=== PATIENT | male | born 1960 | race Caucasian/White ===

== ENCOUNTER → 2017-06-08 | Outpatient (CLI) | payer OTHER ==
[~2017-06-08] MED LIST: ACET-1256 PO; ALBUAER19 INH; ASPI81TA28 PO
--- NOTE | 2017-06-08 13:04 | DIAGNOSTIC IMAGING REPORT ---
(CHEST) THORAX WITHOUT CT DOSE: 207.69 mGycm HISTORY: Abnormal chest x-ray PULMONARY NODULE TECHNIQUE: Multiaxial CT images of the chest were performed without contrast. A dose lowering technique was utilized adhering to the principles of ALARA. COMPARISON: Chest 03/29/2016 FINDINGS: The lungs are clear. The mediastinal vascular structures are within normal limits. No mediastinal or hilar lymphadenopathy. No pleural effusion or pneumothorax. Limited views of the upper abdomen demonstrate a normal liver and spleen. Mild emphysematous change. Nodular density on the patient's chest film appears to relate to a healing posterior fracture and associated callus formation. No significant basilar process is present. Minimal atelectasis of lingula. 4 mm nodular density right lower lobe felt to be low suspicion. IMPRESSION: No acute process of the chest. No significant nodularity. Chest film findings appear to relate to overlap artifact. 4 mm low suspicion nodule posterior aspect right lower lobe transaxial image 29. A six-month follow-up is suggested. The above report was generated using voice recognition software. It may contain grammatical, syntax or spelling errors. Electronically signed by: Maximilian Knox M.D. 06/08/2017 1:02 PM Dictated Date/Time: 06/08/2017 12:58 PM
== END | disposition home or self-care (01) ==
LOC: C.CTS 12:31
PROVIDERS: ATTEND Family Medicine
DX: R91.1 Solitary pulmonary nodule (principal)

== ENCOUNTER 2018-11-06 05:22 | Inpatient (IN) ==
--- OUTSIDE RECORDS SUMMARY | 2018-11-06 05:24 | External Medical Summary | Continuity of Care Document ---
:1960 Author Name Ellie Jean, Provider Address Unavailable Unavailable , Care Team Providers Name Role Phone [email or web address] [email or web address] Unavailable [email or web address]. Unavailable Unavailable Unavailable Unavailable Unavailable Assessments Assessed Problems:Chronic obstructive pulmonary disease Problems Chronic obstructive pulmonary disease (496) (J44.9) Current every day smoker (305.1) (F17.200) Allergic rhinitis (477.9) (J30.9) Cough (786.2) (R05) Avascular necrosis of hip (733.42) (M87.059) Arthritis of right hip (716.95) (M16.11) Pulmonary nodule (793.11) (R91.1) Cardiac murmur (785.2) (R01.1) Lower leg edema (782.3) (R60.0) Elevated brain natriuretic peptide (BNP) level (790.99) (R79 .89) Allergies and Adverse Reactions Azithromycin TABS (Allergy) Penicillins (Allergy) Medications Aspirin 81 MG TABS; TAKE 1 TABLET DAILY. Refills: 0 Cetirizine HCl - 10 MG Oral Tablet; TAKE 1 TABLET DAILY N EEDED. Refills: 0 Montelukast Sodium 10 MG Oral Tablet; TAKE 1 TABLET BY MOUTH ONCE DAILY. Miranda Gill Start: 16-Nov-2017 Quantity: 30 Refills: 5 Ventolin HFA 108 (90 Base) MCG/ACT Inhal ation Aerosol Solution; INHALE 1 TO 2 PUFFS BY MOUTH EVERY 4 TO 6 HOURS NEEDED. Miranda Gill Start: 20-Feb-2018 Quantity: 1 18 GM Inhaler Refills: 2 Qvar RediHaler 80 MCG/ACT Inhalation Aer osol Breath Activated; 2 puffs once or twice daily as needed JAYY Cortes Start: 16-Dec-2017 Quantity: 1 10.6 GM Inhaler Refills: 5 Procedures History of Appendectomy Status: Complete d History of Exploratory Laparotomy Status : Completed Immunizations Immunizations not documented Family History Father Family history of Diabetes Mellitus (V18.0) Status: Active Family history of Colon Cancer (V16.0) Status: Active Family history of Hairy-cell Leukemia Status: Active Family history of myocardial infarction (V17.3) (Z82.49) Sta tus: Active Family history of cerebrovascular accident (CVA) (V17.1) (Z8 2.3) Status: Active Mother Family history of Multiple Myeloma Status: Active Social History - Smoking Status Current every day smoker Interventions Medication ChangesVentolin HFA 108 (90 Base) MCG/ACT Inhalation Aerosol Solution - Start Plan of Treatment Planned Observations Planned Goals not documented Results No Known Results Results not documented Encounters Appointment; Coby Gill M.D. 16-Nov-2017 10:00 Encounter Diagnosis: Problem not documented Appointment; Coby Gill M.D. 13-Jul-2017 14:00 Encounter Diagnosis: Problem not documented Appointment; Coby Gill M.D. 30-May-2017 13:00 Encounter Diagnosis: Problem not documented
[2018-11-06] MEDS ORDERED: ALBUT/IPRATROP 3MG/0.5MG NEB 3 ML VIAL NEB ONE (05:35)
[2018-11-06] MEDS ORDERED: methylPREDNISolone 125 MG/2 ML VIAL IV STA (05:35)
[2018-11-06 06:01] LABS: Basophils # (auto) 0.01 K/uL (0-0.2); Basophils % (auto) 0.2 %; Eosinophils # (auto) 0.01 K/uL (0-0.5); Eosinophils % (auto) 0.2 %; Hemoglobin 14.7 g/dL (14.0-18.0); Immature Granulocytes # (auto) 0.01 K/uL (0.00-0.02); Immature Granulocytes % (auto) 0.2 %; Lymphocytes # (auto) 1.06 K/uL (1.2-3.4); Lymphocytes % (auto) 26.3 %; Mean Corpuscular Hgb Conc 36.8 g/dL (32-36); Mean Corpuscular Volume 91.7 fL (80-100); Mean Platelet Volume 9.9 fL (7.4-10.4); Monocytes # (auto) 0.29 K/uL (0.11-0.59); Monocytes % (auto) 7.2 %; Neutrophils # (auto) 2.65 K/uL (1.4-6.5); Neutrophils % (auto) 65.9 %; Platelet Count 182 K/uL (130-400); RDW Coefficient of Variation 13.3 % (11.5-14.5); RDW Standard Deviation 44.4 fL (36.4-46.3); Red Blood Count 4.36 M/uL (4.7-6.1); White Blood Count 4.03 K/uL (4.8-10.8)
[2018-11-06 06:09] LABS: INR 1.1 (0.9-1.1); Prothrombin Time 11.3 Seconds (9.0-12.0)
[2018-11-06 06:16] LABS: Base Excess VBG -3.6 mEq/L; HCO3 VBG 21 mmol/L; PCO2 VBG 37 mmHg (38-50); PO2 VBG 20 mmHg; pH VBG 7.37 (7.36-7.41)
[2018-11-06 06:17] LABS: Oxygen Saturation VBG < 60.0 %
[2018-11-06 06:20] LABS: Alanine Aminotransferase 31 U/L (12-78); Albumin Level 3.1 gm/dl (3.4-5.0); Aspartate Aminotransferase 28 U/L (15-37); BUN Creatinine Ratio 11.7 (10-20); Bilirubin Direct 0.3 mg/dl (0-0.2); Blood Urea Nitrogen 9 mg/dl (7-18); Calcium 8.9 mg/dl (8.5-10.1); Carbon Dioxide 23 mmol/L (21-32); Chloride 91 mmol/L (98-107); Creatinine Clr Calc Pharmacy 69.2 ml/min; Est GFR (Non-African American) 101.8; Glucose 86 mg/dl (70-99); Magnesium 2.2 mg/dl (1.8-2.4); Potassium 3.8 mmol/L (3.5-5.1); Sodium 125 mmol/L (136-145)
[2018-11-06 06:25] LABS: Alkaline Phosphatase 93 U/L (45-117); Bilirubin,Total 0.8 mg/dl (0.2-1); Total Protein 6.2 gm/dl (6.4-8.2); Troponin I < 0.015 ng/ml (0-0.045)
[2018-11-06] MEDS ORDERED: LEVOFLOXACIN/D5W 750 MG/150 ML BAG IV STA (06:31)
[2018-11-06] MEDS ORDERED: MULTI-VITAMIN INFUSION 10 ML, THIAMINE HCL 100 MG, FOLIC ACID 1 MG in SODIUM CHLORIDE 0... IV SCH (06:45)
--- NOTE | 2018-11-06 06:52 | XRay Report ---
XR chest 1V portable CLINICAL HISTORY: 58 years-old Male presenting with shortness of breath. TECHNIQUE: Portable upright AP view of the chest was obtained. COMPARISON: Chest x-ray from 03/29/[address] from 11/24/2017. FINDINGS: Atherosclerosis of the aortic arch. Cardiac silhouette normal in size. Apparent density overlying the right apex likely relates to skinfold. Lungs are hyperinflated. Prominent nipple shadows bilaterally . No focal opacity. No pleural effusion or pneumothorax. Osseous structures normal. Upper abdomen nor mal. IMPRESSION: 1. Findings suggest emphysema. No focal infiltrate to suggest pneumonia. Electronically signed by: Cameron Romero M.D. 11/06/2018 6:50 AM
--- NOTE | 2018-11-06 07:13 | Emergency Department Note ---
Entered by Bijan Lance acting as a scribe for Ck Harrison MD ED Provider Note Name: Fabian Castillo Age: 58, male Arrives Via: EMS Informant: Patient CC: SOB HPI: The patient is a 58 year old male who presents to the emergency department with complaints of constant SOB beginning this morning. The patient states that he has a history of COPD as he is a current smoker. He notes that his SOB was better after receiving a nebulizer treatment. He also complains of a mild cough and a decreased appetite for the last month. He denies any fever. ROS: See above HPI for pertinent positives & negatives. A total of 10 systems reviewed and were otherwise negative. Past Medical History: GI bleed, pneumonia Past Surgical History: None Family History: No significant family history Social History: Current everyday smoker Home Medications: Tylenol, Ventolin Inhaler, Aspirin Allergies: Erythromycin, penicillins Physical: Vitals: BP 118/79, Pulse 81, Resp 24, Temp 97.5 F L, O2 Sat 100 Exam: GENERAL: Patient is chronically unwell and cachectic appearing, in moderate distress. EYES: No scleral icterus, unremarkable pupils. ENT: Mucous membranes moist, no nasal congestion. NECK: No masses appreciated, no meningismus, trachea is midline. RESPIRATORY: No dyspnea. No rhonchi. Diffuse wheezing and crackles in all lung clark, very junky productive cough. CARDIOVASCULAR: Regular rate and rhythm. No murmurs, rubs, gallops appreciated. GASTROINTESTINAL: Abdomen soft, no peritonitis. No masses appreciated. Vague abdominal tenderness throughout with hypoactive bowel sounds. BACK: No midline tenderness, no CVA tenderness EXTREMITIES: Normal motion all extremities, no cyanosis, swelling of feet but not rest of legs. NEUROLOGIC: Alert and oriented, no acute motor or sensory deficits, no focal weakness, cranial nerves grossly intact. SKIN: No rash, no jaundice, no diaphoresis. Mottling/discoloration of hands/feet. ED Course: Prior Medical Record, Triage/Nursing Notes, Medications, Allergies reviewed by Me 0530: The patient was evaluated in room B7. A complete history and physical exam was performed. 0642: I reevaluated and updated the patient. He is agreeable to inpatient treatment. He is better on the DuoNeb and his oxygen saturation is 100%. 0652: The hospitalist for [facility] was paged. 0704: Upon reevaluation, the patient is stable. I discussed the findings and the treatment plan with the patient. He expresses agreement and understanding. I spoke with Dr De Los Santos of the [facility]. The patient will be evaluated for further management. Vital Signs: reviewed and remarkable for wnl Labs: Reviewed and remarkable for hyponatremia Interventions: Saline Lock, SoluMedrol 125mg IV, Duoneb 1 hr neb, levaquin 750mg IV, banana bag IV X ray results are stated below per my interpretation: Chest: 1 view: No infiltrate, no effusion, normal cardiac border. EKG: EKG results per my interpretation. Indication - SOB. Normal sinus, 77, no ectopy, no ischemia, QTC 452. Consults: 07: I reviewed the patient's case with Dr De Los Santos who will evaluate the patient for further management. Blood pressure: Normal. No Referral necessary Disposition: Hospitalization Differentials: Differential: Infectious, Reactive Airway Disease, Pneumonia, Pneumothorax, COPD, CHF, ACS, Pulmonary Embolism, MSK, GI, Dissection, amongst other etiologies entertained. Medical Decision Makin yr old male with acute respiratory distress who looks quite malnourished consistent with not having eaten recently. Lungs very poor and difficult getting sats though seem in low 90s, fortunately vbg looking OK. Continuous neb given with steroids. Given malnourished state feel banana bag reasonable. Levaquin for abx coverage in severe copd exacerbation. Givne findings will need to come in and hospitalist consulted. Impression: COPD exacerbation, hyponatremia Ck Harrison MD The scribe's documentation has been prepared under my direction and personally reviewed by me in its entirety. I confirm that the note above accurately reflects all work, treatment, procedures, and medical decision making performed by me. Impression & Plan COPD exacerbation, Hyponatremia Past Med/Surg History Medical History GI bleed (Resolved) Pneumonia (Resolved) Family History Other No significant family history Social History Feels Safe at Home: Yes Smoking Status: Heavy tobacco smoker Results & Data Vital Signs Vital Signs - 24 hr 11/06/18 05:29 11/06/18 05:48 11/06/18 06:02 Temperature 36.4 C L Temperature Source Oral Sepsis Recent Fever Within 48 Hours No Sepsis New/Unexplained Change in Mental Status No Sepsis Action Taken by Nursing No Action Required Pulse Rate 80 Pulse Rate [Right Finger] 84 81 Pulse Rhythm Regular Pulse Strength Normal Pulse Strength [Right Finger] Normal Respiratory Rate 24 21 24 Respiratory Effort / Characteristics Non-Labored Spontaneous Non-Labored Spontaneous Respiratory Depth Normal Blood Pressure 131/88 Blood Pressure [Right Arm] 118/79 Blood Pressure Mean 102 Blood Pressure Mean [Right Arm] 92 Blood Pressure Position Lying Blood Pressure Position [Right Arm] Sitting Pulse Oximetry 95 96 100 Oxygen Delivery Method Room Air Room Air Nebulizer Home Medications Current Medication List: was personally reviewed by me Laboratory Data Attestation: I reviewed the patient's lab results. Result diagrams: 11/06/18 05:47 11/06/18 05:47 Lab Results 11/06/18 11/06/18 11/06/18 Range/Units 05:47 05:47 05:47 WBC 4.03 L (4.8-10.8) K/uL RBC 4.36 L (4.7-6.1) M/uL Hgb 14.7 (14.0-18.0) g/dL Hct 40.0 L (42-52) % MCV 91.7 (80-100) fL MCH 33.7 (25-34) pg MCHC 36.8 H (32-36) g/dL RDW Std Deviation 44.4 (36.4-46.3) fL RDW Coeff of Jm 13.3 (11.5-14.5) % Plt Count 182 (130-400) K/uL MPV 9.9 (7.4-10.4) fL Immature Gran % (Auto) 0.2 % Neut % (Auto) 65.9 % Lymph % (Auto) 26.3 % Conway % (Auto) 7.2 % Eos % (Auto) 0.2 % Baso % (Auto) 0.2 % Immature Gran # (Auto) 0.01 (0.00-0.02) K/uL Neut # (Auto) 2.65 (1.4-6.5) K/uL Lymph # (Auto) 1.06 L (1.2-3.4) K/uL Conway # (Auto) 0.29 (0.11-0.59) K/uL Eos # (Auto) 0.01 (0-0.5) K/uL Baso # (Auto) 0.01 (0-0.2) K/uL PT 11.3 (9.0-12.0) Seconds INR 1.1 (0.9-1.1) VBG pH (7.36-7.41) VBG pCO2 (38-50) mmHg VBG pO2 mmHg VBG HCO3 mmol/L VBG O2 Saturation % VBG Base Excess mEq/L Barometric Pressure mm/Hg Sodium 125 L (136-145) mmol/L Potassium 3.8 (3.5-5.1) mmol/L Chloride 91 L (98-107) mmol/L Carbon Dioxide 23 (21-32) mmol/L Anion Gap 11.0 (3-11) BUN 9 (7-18) mg/dl Creatinine 0.75 (0.6-1.4) mg/dl Est Cr Clr Drug Dosing 69.2 ml/min Est GFR ( Amer) 118.0 Est GFR (Non-Af Amer) 101.8 BUN/Creatinine Ratio 11.7 (10-20) Glucose 86 (70-99) mg/dl Lactate (0.4-2.0) mmol/L Calcium 8.9 (8.5-10.1) mg/dl Magnesium 2.2 (1.8-2.4) mg/dl Total Bilirubin 0.8 (0.2-1) mg/dl Direct Bilirubin 0.3 H (0-0.2) mg/dl AST 28 (15-37) U/L ALT 31 (12-78) U/L Alkaline Phosphatase 93 (45-117) U/L Troponin I < 0.015 (0-0.045) ng/ml Total Protein 6.2 L (6.4-8.2) gm/dl Albumin 3.1 L (3.4-5.0) gm/dl Lipase 164 (73-393) U/L 11/06/18 11/06/18 Range/Units 05:47 06:02 WBC (4.8-10.8) K/uL RBC (4.7-6.1) M/uL Hgb (14.0-18.0) g/dL Hct (42-52) % MCV (80-100) fL MCH (25-34) pg MCHC (32-36) g/dL RDW Std Deviation (36.4-46.3) fL RDW Coeff of Jm (11.5-14.5) % Plt Count (130-400) K/uL MPV (7.4-10.4) fL Immature Gran % (Auto) % Neut % (Auto) % Lymph % (Auto) % Conway % (Auto) % Eos % (Auto) % Baso % (Auto) % Immature Gran # (Auto) (0.00-0.02) K/uL Neut # (Auto) (1.4-6.5) K/uL Lymph # (Auto) (1.2-3.4) K/uL Conway # (Auto) (0.11-0.59) K/uL Eos # (Auto) (0-0.5) K/uL Baso # (Auto) (0-0.2) K/uL PT (9.0-12.0) Seconds INR (0.9-1.1) VBG pH 7.37 (7.36-7.41) VBG pCO2 37 L (38-50) mmHg VBG pO2 20 mmHg VBG HCO3 21 mmol/L VBG O2 Saturation < 60.0 % VBG Base Excess -3.6 mEq/L Barometric Pressure 730.9 mm/Hg Sodium (136-145) mmol/L Potassium (3.5-5.1) mmol/L Chloride (98-107) mmol/L Carbon Dioxide (21-32) mmol/L Anion Gap (3-11) BUN (7-18) mg/dl Creatinine (0.6-1.4) mg/dl Est Cr Clr Drug Dosing ml/min Est GFR ( Amer) Est GFR (Non-Af Amer) BUN/Creatinine Ratio (10-20) Glucose (70-99) mg/dl Lactate 1.4 (0.4-2.0) mmol/L Calcium (8.5-10.1) mg/dl Magnesium (1.8-2.4) mg/dl Total Bilirubin (0.2-1) mg/dl Direct Bilirubin (0-0.2) mg/dl AST (15-37) U/L ALT (12-78) U/L Alkaline Phosphatase (45-117) U/L Troponin I (0-0.045) ng/ml Total Protein (6.4-8.2) gm/dl Albumin (3.4-5.0) gm/dl Lipase (73-393) U/L Administered Medications Levofloxacin/Dextrose (Levaquin/D5w) 750 mg in 150 mls @ 100 mls/hr IV NOW STA Stop: 11/06/18 08:00 Last Admin: 11/06/18 06:35 Dose: 100 mls/hr Documented by: [id number] Discontinued Medications Albuterol (Duoneb) 12 ml NEB ONE ONE Stop: 11/06/18 05:36 Last Admin: 11/06/18 05:46 Dose: 12 ml Documented by: [id number] Methylprednisolone (Solumedrol) 125 mg IV NOW STA Stop: 11/06/18 05:36 Last Admin: 11/06/18 05:59 Dose: 125 mg Documented by: [id number] Discharge Plan Visit Data Chief Complaint: Respiratory Problems Stated Complaint: BREATHING DIFFICULTY ED Provider: Ck Harrison Discharge Problem: COPD exacerbation, Hyponatremia Patient Disposition: Being Evaluated by Hospitalist Forms Stand Alone Forms: My [facility] Prescriptions Prescriptions: No Action aspirin 81 mg Tablet,Delayed Release (Dr/Ec) 81 mg PO DAILY RF: 0 Referrals Referrals: Abena Gill MD [Primary Care Provider] - The scribe's documentation has been prepared under my direction and personally reviewed by me in its entirety. I confirm that the note above accurately reflects all work, treatment, procedures, and medical decision making performed by me.
--- NOTE | 2018-11-06 07:30 | History & Physical Report ---
Date of Service November 06, 2018 Assessment & Plan (1) COPD exacerbation: Improved s/p 1-hour neb in ER along with steroids/antibiotics. Will continue IV solumedrol 40mg q12h. Will wait for CTA chest to determine antibiotic selection (he may just need doxycycline or something similar). Would benefit from controller agent. Needs to quit smoking. Incentive spirometry. Mucinex. Scheduled nebs q6h. Present on Admission?: Yes (2) Hyponatremia: Looks relatively euvolemic despite recent history of poor oral intake at home. Could be beer potomania. Could be SIADH from an occult malignancy. Will send urine osm, urine Na, and serum osm with uric acid NOW before giving fluids. Will need, at minimum, repeat BMP in about 6-8 hours and in am. Present on Admission?: Yes (3) Severe protein-calorie malnutrition: Highly concerning for occult malignancy. Add MVI, thiamine, folic acid, boost, etc. Occult malignancy work-up with CT chest/abd/pelvis. May need EGD as well. Present on Admission?: Yes (4) Weight loss: Concerning for occult malignancy. See above. Present on Admission?: Yes (5) Early satiety: Start zantac IV in the event he has gastritis or PUD causing these symptoms. CT abd/pelvis. Will likely need additional GI work-up (EGD, etc). Also with prominent aortic pulsation - CT will r/o AAA. 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 Nicoderm patch 21mg/day. Present on Admission?: Yes (7) Alcohol abuse: Alcohol withdrawal protocol. Gabapentin taper. Ativan prn. MVI/thiamine/folic acid. Place on telemetry. Present on Admission?: Yes (8) Leukopenia: Chronicity unknown. Follow; repeat CBC am. Present on Admission?: Yes (9) DVT prophylaxis: heparin 5000 BID History of Present Illness Chief Complaint: cough, dyspnea Primary Care Provider: Abena Gill MD 58yo male with COPD and long-standing tobacco dependence who presents with worsening cough and dyspnea starting Tuesday AM. Symptoms were initially very mild over the weekend. He went to bed last night feeling "pretty good" but then awoke at 4am to go to the bathroom and was severely dyspneic. At baseline he can walk about 50-60 yards before stopping to rest because of dyspnea. He normally takes ventolin HFA prn but ran out recently. No fevers. He mentions early satiety for about 1 month. Just a few bites into a meal and he is filled up. He has had associated nausea and bloating. He has used tums and prilosec for the nausea. No stomach pain but has had "discomfort." Stools have not had gross melena or BRBPR. No dysphagia or odynophagia. No h/o GERD. Has had some weight loss - he is unsure of the amount. Allergies Allergy/AdvReac Type Severity Reaction Status Date / Time erythromycin base Allergy Unknown UNKNOWN Verified 11/06/18 06:21 Penicillins Allergy Unknown UNKNOWN Verified 11/06/18 06:21 Home Medications Home Medications Medication Instructions Recorded Confirmed Type aspirin 81 mg PO DAILY 11/06/18 11/06/18 History Past Med/Surg History Medical History GI bleed (Resolved) Pneumonia (Resolved) COPD (chronic obstructive pulmonary disease) (Chronic) Abdominal mass removed at [facility] - he cannot recall details; he was in 3rd grade Avascular necrosis of hip right Surgical History Hx of appendectomy Family History Father Hairy cell leukemia Mother Multiple myeloma Social History Preferred Language: Moroccan Communication Ability: Effective Beliefs That Will Affect Care: None marital status: Single marital status details: no children Current Living Situation: Alone Current Living Situation Comment: lives in [place] by himself current occupational status: disabled Other Information That Helps Us Care for You: No other: 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 Feels Safe at Home: Yes Safety Concerns: Feels Safe At This Time Smoking Status: Heavy tobacco smoker Tobacco Type: cigarettes Age Started Using Tobacco: 15 packs per day: 1 Cigarettes Per Day: 26 Hx Alcohol Use: Yes Alcohol type: beer Alcohol Intake Frequency Comment: 4-6 beers/day Hx Substance Use: No Review of Systems Constitutional: + fatigue, + anorexia and + weight loss; no fever, no chills and no sweats Eyes: no worsening vision Ear, Nose, Mouth, Throat: + nasal congestion; no sore throat Respiratory: + cough, + dyspnea, + dyspnea on exertion and + wheezing; no hemoptysis Cardiovascular: no chest pain Gastrointestinal: + abdominal pain, + bloating, + early satiety, + nausea and + diarrhea/loose stools; no vomiting, no pain with swallowing, no constipation and no blood in stools Genitourinary: no dysuria Musculoskeletal: no back pain and no joint pain Integumentary: no rash Neurologic: no numbness Psychiatric: no depression and no anxiety Endocrine: no polydipsia and no polyuria Hematologic / Lymphatic: no easy bruising Allergy / Immunological: + seasonal rhinorrhea Physical Exam Constitutional: + ill appearing, + cachectic and + disheveled; no acute distress and no altered mental status Eyes: + conjunctival abnormality (mildly injected b/l ) and PERRL ENMT: Ears: no TM abnormality Nose: no external nose abnormality Mouth: + oropharynx abnormality (3-4mm erythematous papule right posterior pharynx; erythroplakia?) and + poor dentition Neck: trachea midline, no thyromegaly Respiratory: normal respiratory effort; no labored breathing Auscultation: + diminished lung sounds; no crackles, no rhonchi and no wheezes Cardiovascular: Rate/Rhythm: regular rhythm and + tachycardic Heart Sounds: normal S1 and normal S2; no murmur Vessels: posterior tibial pulses present and dorsalis pedis pulses present; no JVD Extremities: no edema Gastrointestinal (Abdomen): Inspection/Auscultation: abdomen not distended Percussion/Palpation: + abdomen tender (high epigastric region) and + abdominal aortic enlargement (with prominent pulsation); no guarding, abdomen not rigid and no hepatosplenomegaly Musculoskeletal: Extremities: strength 5/5 throughout and + clubbing Skin: + ecchymosis (arms) Neurologic: deep tendon reflexes 2+ bilaterally; no focal motor deficits Motor/Sensory: + tremor Cranial Nerves: PERRL Psychiatric: A+Ox3, euthymic affect Lymphatic: no cervical lymphadenopathy Results & Data Vital Signs (Past 12 Hours) Vital Signs Temp Pulse Pulse Resp BP BP Pulse Ox 11/06/18 06:02 81 24 118/79 100 11/06/18 05:48 84 21 96 11/06/18 05:29 36.4 C L 80 24 131/88 95 Laboratory Results Laboratory Results - last 24 hr 11/06/18 11/06/18 11/06/18 05:47 05:47 05:47 WBC 4.03 L RBC 4.36 L Hgb 14.7 Hct 40.0 L MCV 91.7 MCH 33.7 MCHC 36.8 H RDW Std Deviation 44.4 RDW Coeff of Jm 13.3 Plt Count 182 MPV 9.9 Immature Gran % (Auto) 0.2 Neut % (Auto) 65.9 Lymph % (Auto) 26.3 Clarke % (Auto) 7.2 Eos % (Auto) 0.2 Baso % (Auto) 0.2 Immature Gran # (Auto) 0.01 Neut # (Auto) 2.65 Lymph # (Auto) 1.06 L Clarke # (Auto) 0.29 Eos # (Auto) 0.01 Baso # (Auto) 0.01 PT 11.3 INR 1.1 VBG pH VBG pCO2 VBG pO2 VBG HCO3 VBG O2 Saturation VBG Base Excess Barometric Pressure Sodium 125 L Potassium 3.8 Chloride 91 L Carbon Dioxide 23 Anion Gap 11.0 BUN 9 Creatinine 0.75 Est Cr Clr Drug Dosing 69.2 Est GFR ( Amer) 118.0 Est GFR (Non-Af Amer) 101.8 BUN/Creatinine Ratio 11.7 Glucose 86 Lactate Calcium 8.9 Magnesium 2.2 Total Bilirubin 0.8 Direct Bilirubin 0.3 H AST 28 ALT 31 Alkaline Phosphatase 93 Troponin I < 0.015 Total Protein 6.2 L Albumin 3.1 L Lipase 164 Urine Color Urine Appearance Urine pH Ur Specific Healy Urine Protein Urine Glucose (UA) Urine Ketones Urine Blood Urine Nitrite Urine Bilirubin Urine Urobilinogen Ur Leukocyte Esterase 11/06/18 11/06/18 11/06/18 05:47 06:02 07:21 WBC RBC Hgb Hct MCV MCH MCHC RDW Std Deviation RDW Coeff of Jm Plt Count MPV Immature Gran % (Auto) Neut % (Auto) Lymph % (Auto) Clarke % (Auto) Eos % (Auto) Baso % (Auto) Immature Gran # (Auto) Neut # (Auto) Lymph # (Auto) Clarke # (Auto) Eos # (Auto) Baso # (Auto) PT INR VBG pH 7.37 VBG pCO2 37 L VBG pO2 20 VBG HCO3 21 VBG O2 Saturation < 60.0 VBG Base Excess -3.6 Barometric Pressure 730.9 Sodium Potassium Chloride Carbon Dioxide Anion Gap BUN Creatinine Est Cr Clr Drug Dosing Est GFR ( Amer) Est GFR (Non-Af Amer) BUN/Creatinine Ratio Glucose Lactate 1.4 Calcium Magnesium Total Bilirubin Direct Bilirubin AST ALT Alkaline Phosphatase Troponin I Total Protein Albumin Lipase Urine Color Yellow Urine Appearance Clear Urine pH 5.5 Ur Specific Healy 1.011 Urine Protein Negative Urine Glucose (UA) Negative Urine Ketones Trace H Urine Blood Negative Urine Nitrite Negative Urine Bilirubin Negative Urine Urobilinogen Negative Ur Leukocyte Esterase Negative Diagnostic Findings CXR - emphysematous changes; no focal infiltrates EKG - my reading - sinus tach, no ST changes Code Status & VTE Plan Code Status level 1 full code VTE Prophylaxis Plan VTE Prophylaxis will be ordered: Yes PG Care Time/CCT Total # of Minutes Spent Total Time Spent with Patient: Total time spent is greater than 50% in coordination of care (as documented) at patient's floor/unit and/or counseling patient: (1) Leukopenia Leukopenia type: other Qualified Code(s): D72.818 - Other decreased white blood cell count
[2018-11-06 07:34] LABS: Appearance Urine Clear (Clear); Bilirubin Urine Negative (Negative); Blood Urine Negative (Negative); Color Urine Yellow; Glucose Urine UA Negative (Negative); Ketones Urine Trace (Negative); Leukocyte Esterase Urine Negative (Negative); Nitrite Urine Negative (Negative); Protein Urine Negative (Negative); Specific Gravity Urine 1.011 (1.000-1.030); Urobilinogen Urine Negative (Negative); pH Urine 5.5 (4.5-7.5)
[2018-11-06] MEDS ORDERED: LORazepam 1 MG TAB PO PRN ×2 (09:28→16:31)
[2018-11-06] MEDS ORDERED: GABAPENTIN 600MG ALCOHOL WITHDRAWAL LOAD PO STA (09:28)
[2018-11-06] MEDS ORDERED: ONDANSETRON INJ 2 MG/ML 2 ML VIAL IV PRN (09:28)
[2018-11-06] MEDS ORDERED: ACETAMINOPHEN 325 MG TAB PO PRN (09:28)
[2018-11-06] MEDS ORDERED: GABAPENTIN 600 MG TAB PO ONE (10:00)
[2018-11-06] MEDS: FOLIC ACID 1 MG in SYRINGE 9.8 ML IV SCH (10:01)
[2018-11-06] MEDS ORDERED: OPTIRAY 320 125ml IV PRN (10:28)
[2018-11-06 10:32] LABS: BUN Creatinine Ratio 8.6 (10-20); Calcium 8.1 mg/dl (8.5-10.1); Est GFR (Non-African American) 93.2
[2018-11-06] MEDS: THIAMINE HCL 200 MG in SODIUM CHLORIDE 0.9% 50 ML IV SCH ×2 (10:52→21:18)
[2018-11-06] MEDS: NICOTINE 21 MG/24 HR TDSY TD SCH (10:53)
[2018-11-06] MEDS: CEROVITE ADV FORMULA TAB PO SCH (10:53)
[2018-11-06] MEDS: HEPARIN SOD 5,000 UNIT/0.5 ML VIAL SQ SCH ×2 (10:54→21:13)
[2018-11-06] MEDS: guaiFENesin 600 MG TABCR PO SCH ×2 (10:54→21:13)
[2018-11-06] MEDS: methylPREDNISolone 40 MG in SYRINGE 0 ML IV SCH (11:00)
--- NOTE | 2018-11-06 11:02 | CT Scan Report ---
CT ANGIOGRAM OF THE CHEST CLINICAL HISTORY: Weight loss, shortness of breath. Possible pulmonary embolism. COMPARISON STUDY: Noncontrast chest CT performed November 2017 TECHNIQUE: Following the IV administration of 119 mL of Optiray-320, CT angiogram of the thorax was p erformed from the thoracic inlet to the lung bases utilizing the pulmonary embolus protocol. Images a re reviewed in the axial, sagittal, and coronal planes. IV contrast was administered without complica tion. MIP imaging was performed. A dose lowering technique was utilized adhering to the principles o f ALARA. CT DOSE: 499.88 mGycm FINDINGS: There is a partially visualized 13 mm left renal cyst. No pathologically enlarged axillary mediastinal or hilar lymph nodes were visualized. There was no evidence of thoracic aortic dilatation. There were no pulmonary artery filling defects to indicate acute pulmonary embolism. No pleural effusions are visualized. There is no focal pulmonary consolidation. There is respiratory motion artifact. There is underlying pulmonary emphysema. IMPRESSION: 1. No evidence of acute pulmonary embolism 2. No evidence of acute parenchymal consolidation 3. No evidence of pathologic adenopathy 4. Emphysema Electronically signed by: Sung Moses M.D. 11/06/2018 11:01 AM
[2018-11-06] MEDS: ALBUT/IPRATROP 3MG/0.5MG NEB 3 ML VIAL NEB SCH ×3 (11:10→18:59)
--- NOTE | 2018-11-06 12:25 | CT Scan Report ---
ABDOMEN AND PELVIS CT WITH IV AND ORAL CONTRAST HISTORY: Acute generalized abdominal pain with weight loss, early satiety, abd pain, weight loss TECHNIQUE: Multiaxial CT images of the abdomen and pelvis were performed following the use of intrave nous and oral contrast. A dose lowering technique was utilized adhering to the principles of ALARA. COMPARISON STUDY: CTA chest of same day, chest CT 06/08/2017. FINDINGS: Trace pleural effusions. Minimal subsegmental bibasilar opacities suggest atelectasis. Emphysema with mild bilateral bronchial wall thickening. No pneumatosis or pneumoperitoneum. Coronary arterial calc ifications are noted. The imaged inferior cardiac chambers are unremarkable. The liver, spleen, gallbladder, pancreas and adrenal glands appear unremarkable. 1.4 cm cyst of the s uperior pole left kidney. No renal or ureteral calculi or obstructive uropathy. Moderate urinary blad fadi distention. Calcifications about the mid to fundal uterus are noted. No adnexal mass lesions. Ext ensive mixed plaque formation of the abdominal aorta and iliac arteries without aneurysm or dissectio n. IVC appears unremarkable. No adenopathy. No bowel obstruction or bowel wall thickening. No ascites or mesenteric inflammation. Soft tissues ar e unremarkable. Severe joint space loss of the right femoroacetabular joint with fragmentation of the right femoral head. Extensive subcortical cystic changes and erosions are present in addition to a m oderate sized joint effusion. Multiple calcific intra-articular loose bodies measure up to 1.5 cm. Mi ld avascular necrosis about the left femoral head. No acute fracture identified. IMPRESSION: 1. No acute intra-abdominal or intrapelvic abnormality identified. 2. Moderate urinary bladder distention. 3. Emphysema. 4. Severe joint space narrowing of the right femoroacetabular joint with prominent subcortical cystic change, erosion and bony fragmentation of the femoral head. Moderate associated joint effusion with multiple calcified intra-articular loose bodies. Differential considerations would include PVNS versu s nonspecific inflammatory arthropathy. Infectious arthropathy is considered less likely. Correlate c km. 5. Avascular necrosis of the left femoral head. 6. Additional findings as above. Dictated: 11/06/2018 11:29 AM Transcribed: 11/06/2018 12:25 PM Octavia [id number] [email or web address] Electronically signed by: Joshua Alvarez M.D. 11/06/2018 12:38 PM
[2018-11-06] MEDS ORDERED: SODIUM CHLORIDE 0.9% 500 ML IV SCH (13:30)
[2018-11-06] MEDS: GABAPENTIN 100 MG CAP PO SCH ×2 (16:08→21:11)
[2018-11-06 16:28] LABS: BUN Creatinine Ratio 6.8 (10-20); Calcium 8.7 mg/dl (8.5-10.1); Creatinine Clr Calc Pharmacy 40.9 ml/min; Est GFR (African American) 70.9; Est GFR (Non-African American) 61.1; Potassium 3.6 mmol/L (3.5-5.1)
[2018-11-06] MEDS ORDERED: LORazepam 2 MG/4 ML VIAL IV PRN (16:31)
[2018-11-06] MEDS ORDERED: LORazepam 1 MG/2 ML VIAL IV PRN (16:31)
[2018-11-06] MEDS ORDERED: LORazepam 3 MG/6 ML VIAL IV PRN (16:31)
[2018-11-06] MEDS ORDERED: ATIVAN IV ALCOHOL WITHDRAWL IV SCH (16:45)
[2018-11-07] MEDS: methylPREDNISolone 40 MG in SYRINGE 0 ML IV SCH ×2 (00:43→12:53)
[2018-11-07 07:00] LABS: Hematocrit (blood only) 34.9 % (42-52); Hemoglobin 12.4 g/dL (14.0-18.0); Immature Granulocytes # (auto) 0.02 K/uL (0.00-0.02); Immature Granulocytes % (auto) 0.3 %; Lymphocytes # (auto) 0.34 K/uL (1.2-3.4); Lymphocytes % (auto) 5.3 %; Mean Corpuscular Hgb Conc 35.5 g/dL (32-36); Mean Corpuscular Volume 93.3 fL (80-100); Mean Platelet Volume 9.7 fL (7.4-10.4); Monocytes # (auto) 0.22 K/uL (0.11-0.59); Monocytes % (auto) 3.5 %; Neutrophils # (auto) 5.79 K/uL (1.4-6.5); Neutrophils % (auto) 90.9 %; Platelet Count 176 K/uL (130-400); RDW Coefficient of Variation 13.7 % (11.5-14.5); Red Blood Count 3.74 M/uL (4.7-6.1); White Blood Count 6.37 K/uL (4.8-10.8)
[2018-11-07] MEDS: ALBUT/IPRATROP 3MG/0.5MG NEB 3 ML VIAL NEB SCH ×3 (07:13→15:11)
[2018-11-07 07:41] LABS: BUN Creatinine Ratio 10.9 (10-20); Calcium 8.6 mg/dl (8.5-10.1); Creatinine Clr Calc Pharmacy 63.1 ml/min; Est GFR (African American) 112.7; Est GFR (Non-African American) 97.2
[2018-11-07] MEDS ORDERED: GABAPENTIN 600 MG TAB PO SCH (08:00)
[2018-11-07] MEDS: guaiFENesin 600 MG TABCR PO SCH ×2 (09:01→20:39)
[2018-11-07] MEDS: FOLIC ACID 1 MG in SYRINGE 9.8 ML IV SCH (09:01)
[2018-11-07] MEDS: NICOTINE 21 MG/24 HR TDSY TD SCH (09:01)
[2018-11-07] MEDS: CEROVITE ADV FORMULA TAB PO SCH (09:01)
[2018-11-07] MEDS: HEPARIN SOD 5,000 UNIT/0.5 ML VIAL SQ SCH ×2 (09:01→20:37)
[2018-11-07] MEDS ORDERED: COUGH DROP (SUGAR FREE) LOZ 24 LOZ/1 BOX BUCCAL ONE (09:03)
[2018-11-07] MEDS: THIAMINE HCL 200 MG in SODIUM CHLORIDE 0.9% 50 ML IV SCH ×2 (09:06→20:37)
[2018-11-07] MEDS: ALBUTEROL HFA 8 GM INHALER INH PRN (17:13)
[2018-11-07] MEDS: IPRATROPIUM BROMIDE/ALBUTEROL respimat INH INH SCH (20:37)
--- NOTE | 2018-11-07 20:45 | Hospitalist Progress Note ---
Date of Service November 07, 2018 Assessment & Plan (1) COPD exacerbation: Improved. Wean steroids. change duonebs to combivent q6h and albuterol MDI q2-q4h prn. 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 needs to quit smoking. doxy 100mg BID x 6 days in total (received IV abx in ER yesterday for day #1 of Rx). (2) Hyponatremia: Likely beer potomania. Na has corrected w/o intervention. Low urine osm c/w beer potomania/polydipsis. BMP qam. (3) Severe protein-calorie malnutrition: Highly concerning for occult malignancy. Adedd MVI, thiamine, folic acid, boost, etc. Occult malignancy work-up with CT chest/abd/pelvis negative, however. Will need outpatient EGD due to recent early satiety and weight loss along with colonoscopy. (4) Weight loss: Concerning for occult malignancy. See above. (5) Early satiety: Started zantac IV in the event he has gastritis or PUD causing these symptoms. Symptoms improved; eating very well. Will likely need additional GI work-up (EGD, etc). 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 Nicoderm patch 21mg/day. (7) Alcohol abuse: Alcohol withdrawal protocol in place. Probably has mild withdrawal currently. Gabapentin taper. Ativan prn. MVI/thiamine/folic acid. Continue tele status. (8) Leukopenia: noted. improved. (9) Physical deconditioning: needs rehab but patient not agreeable (10) DVT prophylaxis: heparin 5000 BID girlfriend updated at bedside today Subjective patient has been refusing to walk and get up for staff. thus, PT eval ordered. did very poorly - walked 12 feet but was very unsteady and weak. rehab recommended but he refused. cough,dyspnea much improved. eating VERY well w/o early satiety. states tremors are "like they are at home." tele- sinus tach especially with walking. asks if he could get some viagra for home after discharge. Review of Systems Constitutional: no fever, no chills, no fatigue and no anorexia Respiratory: + cough; no chest congestion, no hemoptysis, no sputum production and no wheezing Cardiovascular: no chest pain Gastrointestinal: no abdominal pain, no bloating, no early satiety, no nausea and no vomiting Physical Exam Constitutional: + ill appearing, + cachectic and + disheveled; no acute distress and no altered mental status ENMT: Mouth: + poor dentition Neck: trachea midline, no thyromegaly Respiratory: normal respiratory effort; no labored breathing Auscultation: + diminished lung sounds; no crackles, no rhonchi and no wheezes Cardiovascular: Rate/Rhythm: regular rate and regular rhythm Heart Sounds: normal S1 and normal S2; no murmur Vessels: posterior tibial pulses present and dorsalis pedis pulses present; no JVD Extremities: no edema Gastrointestinal (Abdomen): normal bowel sounds, soft, nontender, no hepatosplenomegaly Musculoskeletal: Extremities: + clubbing Skin: + ecchymosis (arms) Neurologic: Motor/Sensory: + tremor Psychiatric: A+Ox3, euthymic affect Results & Data Vital Signs (Past 12 Hours) Vital Signs Temp Pulse Resp BP Pulse Ox 11/07/18 19:10 36.6 C 90 16 96/68 L 96 11/07/18 15:29 36.7 C 98 H 20 108/71 94 11/07/18 15:14 102 H 18 96 11/07/18 14:39 98 11/07/18 11:10 76 16 98 11/07/18 11:08 36.6 C 77 24 96/56 L 98 PG Care Time/CCT Total # of Minutes Spent Total Time Spent with Patient: Total time spent is greater than 50% in coordination of care (as documented) at patient's floor/unit and/or counseling patient: (1) Leukopenia Leukopenia type: other Qualified Code(s): D72.818 - Other decreased white blood cell count
[2018-11-08] MEDS: ALBUTEROL HFA 8 GM INHALER INH PRN ×4 (00:37→19:33)
[2018-11-08 07:13] LABS: BUN Creatinine Ratio 12.8 (10-20); Calcium 8.3 mg/dl (8.5-10.1); Creatinine Clr Calc Pharmacy 90.7 ml/min; Est GFR (African American) 129.4; Est GFR (Non-African American) 111.6; Potassium 4.5 mmol/L (3.5-5.1)
[2018-11-08] MEDS ORDERED: GABAPENTIN 400 MG CAP PO SCH (08:00)
[2018-11-08] MEDS: HEPARIN SOD 5,000 UNIT/0.5 ML VIAL SQ SCH ×2 (08:33→20:23)
[2018-11-08] MEDS: IPRATROPIUM BROMIDE/ALBUTEROL respimat INH INH SCH ×4 (08:34→20:22)
[2018-11-08] MEDS: FOLIC ACID 1 MG in SYRINGE 9.8 ML IV SCH (08:35)
[2018-11-08] MEDS: guaiFENesin 600 MG TABCR PO SCH ×2 (08:35→20:24)
[2018-11-08] MEDS: CEROVITE ADV FORMULA TAB PO SCH (08:36)
[2018-11-08] MEDS: predniSONE 20 MG TAB PO SCH (08:36)
[2018-11-08] MEDS: THIAMINE HCL 200 MG in SODIUM CHLORIDE 0.9% 50 ML IV SCH ×2 (08:47→20:26)
[2018-11-08] MEDS: NICOTINE 21 MG/24 HR TDSY TD SCH (10:00)
[2018-11-08] MEDS: DOXYCYCLINE HYCLATE 100 MG CAP PO SCH (20:36)
--- NOTE | 2018-11-08 21:39 | Hospitalist Progress Note ---
Date of Service November 08, 2018 Assessment & Plan (1) Alcohol withdrawal: Patient is in withdrawal. Although he says the tremors are chronic and unchanged from baseline they are clearly worse in comparison to admission. Continue gabapentin protocol. Continue ativan prn. He declined scheduled beer to prevent withdrawal. Cont MVI/folic acid/thiamine. Cont telemetry status. Fortunately no DTs or significant agitation. (2) COPD exacerbation: Resolving. Continue prednisone daily. Add advair 250/50 1 puff BID. Cont combivent q6h. Cont mucinex. Cont incentive stephanie. Needs to quit smoking. Doxy 100mg BID. (3) Hyponatremia: Beer potomania. Improved/stable. BMP am for stability. (4) Severe protein-calorie malnutrition: Highly concerning for occult malignancy. CT chest/abd/pelvis w/o obvious tumor/malignancy however. Will need GI w/u post-discharge (5) Weight loss: Concerning for occult malignancy. See above. (6) Early satiety: resolved with IV zantac and steroids. cause? EGD will be needed post-d/c. 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 Nicoderm patch 21mg/day. (8) Alcohol abuse: with withdrawal as above. Alcohol withdrawal protocol in place. Gabapentin taper. Ativan prn. MVI/thiamine/folic acid. NO INTEREST in quitting. (9) Leukopenia: resolved (10) Physical deconditioning: highly encouraged him to consider rehab- refused. had Ms Wilson from case management talk to him about rehab- also refused. he is refusing home PT/OT as well spoke with significant other - she plans to talk with him about going to rehab. (11) DVT prophylaxis: heparin 5000 BID cont etoh withdrawal Rx Subjective patient states he "had a code brown" (bowel movement in the bed) he continues to have significant tremors and weakness he continues to tell me the tremors are not any worse than his baseline tremors cough is minimal tele still w/ episodes of sinus tach with activity staff report he is NOT motivated to walk we had a lengthy discussion about rehab -- he gave multiple reasons why he wouldn't go "it is what it is" he told me he also told me he has NO plans to stop drinking he has near-daily routine of going to a local bar in [place] to drink and watch sports Review of Systems Constitutional: no fever, no chills, no fatigue and no anorexia Respiratory: + cough and + dyspnea on exertion; no chest congestion, no hemoptysis and no sputum production Cardiovascular: no chest pain Gastrointestinal: no abdominal pain, no bloating, no early satiety, no nausea, no vomiting and no diarrhea/loose stools Physical Exam Constitutional: + cachectic and + disheveled; no acute distress and no altered mental status ENMT: external ear and nose normal, oropharynx normal Mouth: + poor dentition Neck: trachea midline, no thyromegaly Respiratory: normal respiratory effort; no labored breathing Auscultation: no crackles, no rhonchi and no wheezes Cardiovascular: Rate/Rhythm: regular rhythm and + tachycardic Heart Sounds: normal S1 and normal S2; no murmur Vessels: posterior tibial pulses present and dorsalis pedis pulses present; no JVD Extremities: no edema Gastrointestinal (Abdomen): normal bowel sounds, soft, nontender, no hepatosplenomegaly Musculoskeletal: Extremities: + clubbing Skin: + ecchymosis (arms) Neurologic: Motor/Sensory: + tremor (worse than yesterday) Psychiatric: A+Ox3, euthymic affect Results & Data Vital Signs (Past 12 Hours) Vital Signs Temp Pulse Resp BP Pulse Ox 11/08/18 19:12 36.7 C 86 20 103/66 96 11/08/18 15:09 36.6 C 88 22 119/74 98 11/08/18 14:47 99 11/08/18 11:54 36.8 C 99 H 22 104/76 99 Laboratory Results Laboratory Results - last 24 hr 11/08/18 11/08/18 06:22 07:13 Sodium 133 L Potassium 4.5 Chloride 103 Carbon Dioxide 26 Anion Gap 4.0 BUN 8 Creatinine 0.60 Est Cr Clr Drug Dosing 90.7 Est GFR ( Amer) 129.4 Est GFR (Non-Af Amer) 111.6 BUN/Creatinine Ratio 12.8 Glucose 93 POC Glucose 101 H Calcium 8.3 L PG Care Time/CCT Total # of Minutes Spent Total Time Spent with Patient: Total time spent is greater than 50% in coordin ation of care (as documented) at patient's floor/unit and/or counseling patient: (1) Leukopenia Leukopenia type: other Qualified Code(s): D72.818 - Other decreased white blood cell count (2) Alcohol withdrawal Complication of substance-induced condition: uncomplicated Qualified Code(s): F10.230 - Alcohol dependence with withdrawal, uncomplicated
[2018-11-08] MEDS: FLUTICASONE/SALMETEROL 250/50 (ADVAIR) 14 PUFF/1 INHALER INH SCH (22:06)
[2018-11-09 07:51] LABS: BUN Creatinine Ratio 15.1 (10-20); Calcium 8.4 mg/dl (8.5-10.1); Creatinine Clr Calc Pharmacy 90.3 ml/min; Est GFR (African American) 129.4; Est GFR (Non-African American) 111.6; Potassium 4.2 mmol/L (3.5-5.1)
[2018-11-09] MEDS ORDERED: GABAPENTIN 100 MG CAP PO SCH (08:00)
[2018-11-09] MEDS: predniSONE 20 MG TAB PO SCH (08:08)
[2018-11-09] MEDS: CEROVITE ADV FORMULA TAB PO SCH (08:08)
[2018-11-09] MEDS: DOXYCYCLINE HYCLATE 100 MG CAP PO SCH (08:08)
[2018-11-09] MEDS: FLUTICASONE/SALMETEROL 250/50 (ADVAIR) 14 PUFF/1 INHALER INH SCH (08:08)
[2018-11-09] MEDS: guaiFENesin 600 MG TABCR PO SCH (08:08)
[2018-11-09] MEDS: FOLIC ACID 1 MG in SYRINGE 9.8 ML IV SCH (08:09)
[2018-11-09] MEDS: IPRATROPIUM BROMIDE/ALBUTEROL respimat INH INH SCH ×3 (08:09→16:19)
[2018-11-09] MEDS: NICOTINE 21 MG/24 HR TDSY TD SCH (08:09)
[2018-11-09] MEDS: THIAMINE HCL 200 MG in SODIUM CHLORIDE 0.9% 50 ML IV SCH (08:12)
[2018-11-09] MEDS: HEPARIN SOD 5,000 UNIT/0.5 ML VIAL SQ SCH (08:49)
[2018-11-09] MEDS ORDERED: CALCIUM CARBONATE 500 MG CHEWABLE TAB PO STA (17:40)
--- NOTE | 2018-11-09 19:58 | Discharge Summary ---
Date of Service date of admission - November 06, 2018 date of discharge - November 09, 2018 Admission HPI Per Admitting Provider 58yo male with COPD and long-standing tobacco dependence who presents with worsening cough and dyspnea starting Satur AM. Symptoms were initially very mild over the weekend. He went to bed last night feeling "pretty good" but then awoke at 4am to go to the bathroom and was severely dyspneic. At baseline he can walk about 50-60 yards before stopping to rest because of dyspnea. He normally takes ventolin HFA prn but ran out recently. No fevers. He mentions early satiety for about 1 month. Just a few bites into a meal and he is filled up. He has had associated nausea and bloating. He has used tums and prilosec for the nausea. No stomach pain but has had "discomfort." Stools have not had gross melena or BRBPR. No dysphagia or odynophagia. No h/o GERD. Has had some weight loss - he is unsure of the amount. Principal Diagnosis COPD with exacerbation Discharge Exam Constitutional + cachectic and + disheveled; no acute distress and no altered mental status ENMT external ear and nose normal, oropharynx normal Mouth: + poor dentition Neck trachea midline, no thyromegaly Respiratory normal respiratory effort; no labored breathing Auscultation: + wheezes (minimal b/l); no crackles and no rhonchi Cardiovascular Rate/Rhythm: regular rate and regular rhythm Heart Sounds: normal S1 and normal S2; no murmur Vessels: posterior tibial pulses present and dorsalis pedis pulses present; no JVD Extremities: no edema Gastrointestinal (Abdomen) normal bowel sounds, soft, nontender, no hepatosplenomegaly Inspection/Auscultation: abdomen not distended Musculoskeletal Extremities: + clubbing Skin + ecchymosis (arms) Psychiatric A+Ox3, euthymic affect Lymphatic no cervical lymphadenopathy Discharge Data Allergies Allergy/AdvReac Type Severity Reaction Status Date / Time erythromycin base Allergy Unknown UNKNOWN Verified 11/06/18 06:21 Nitrate Analogues Allergy Unknown Difficulty Verified 11/06/18 16:54 Breathing Penicillins Allergy Unknown UNKNOWN Verified 11/06/18 06:[address] abd/pelvis - IMPRESSION: 1. No acute intra-abdominal or intrapelvic abnormality identified. 2. Moderate urinary bladder distention. 3. Emphysema. 4. Severe joint space narrowing of the right femoroacetabular joint with prominent subcortical cystic change, erosion and bony fragmentation of the femoral head. Moderate associated joint effusion with multiple calcified intra- articular loose bodies. Differential considerations would include PVNS versus nonspecific inflammatory arthropathy. Infectious arthropathy is considered less likely. Correlate clinically. 5. Avascular necrosis of the left femoral head. 2. CTA chest - IMPRESSION: 1. No evidence of acute pulmonary embolism 2. No evidence of acute parenchymal consolidation 3. No evidence of pathologic adenopathy 4. Emphysema Hospital Course (1) COPD exacerbation: Treated in the customary fashion with IV steroids and narrow-spectrum antibiotics along with nebs/supportive care. Quickly improved with such. He will complete a prednisone taper and short course of oral doxycycline post- discharge. The patient has, at minimum, moderate COPD by symptom history and thus he was started on maintenance treatment with advair. He was also given combivent for home use. Highly counseled to quit smoking but he did not seem motivated to do so. He never had an O2 requirement while hospitalized and imaging failed to reveal any pneumonia. (2) Hyponatremia: Likely beer potomania. Sodium level improved with no treatment other than alcohol restriction. Na improved from 125 to 136 while hospitalized. (3) Alcohol withdrawal: Patient likely experienced mild-moderate etoh withdrawal while hospitalized. He reported that his tremors are chronic but these clearly worsened during his course. He was placed on gabapentin protocol and ativan prn. He received MVI/folic acid/thiamine supplementation. Fortunately no DTs or significant agitation were seen. He was counseled to abstain from alcohol or cut back to moderate levels. However, much like tobacco, he did not seem motivated to follow these recommendations. (4) Severe protein-calorie malnutrition: Highly concerning for occult malignancy. CT chest/abd/pelvis w/o obvious tumor/malignancy however. Will need GI w/u post-discharge (EGD, etc). Referral will be made to GI for that purpose. (5) Weight loss: Concerning for occult malignancy. See above. (6) Early satiety: resolved with IV zantac. cause? EGD will be needed post-d/c. Placed on PPI at time of discharge. (7) Tobacco dependence: Counseled to quit. Nicoderm patch 21mg/day given while here. (8) Alcohol abuse: with withdrawal as above. NO INTEREST in quitting. (9) Leukopenia: resolved. he may have baseline mild leukopenia as his normal or perhaps this was due to a viral process. repeat CBC as outpatient for stability recommended. (10) Physical deconditioning: highly encouraged him to consider inpatient rehab - refused adamantly. he also refused home PT/OT and other home health services. he has severe b/l hip pain which limits his mobility. he does receive some assistance from his significant other. Total Time Total Time Spent Total Time Spent (In Minutes): 40 Total Time Includes: Examination of the Patient, Discharge Planning and Medication Reconciliation Discharge Plan Discharge Items Patient Disposition: Home - Self-Care Reason For Visit: COPD EXACERBATION Discharge Diagnosis: 1. COPD exacerbation - improved. 2. abdominal symptoms (feeling full with eating, etc) - improved, but GI referral needed. 3. low sodium level - resolved. 4. tobacco/alcohol use. Discharge Goals: Diagnostic testing Activity: Resume your previous activity Activity Comment: as tolerated Bathing: No limitations Sexual Activity: Wait until after follow-up appointment Exercise/Sports: Wait until after follow-up appointment Driving/Machine Use: Resume 3 days after discharge Non-emergency contact: Primary Care Provider Call non-emergency contact if: you have any medication questions, your symptoms worsen and your temperature is above 100.5 Follow-up/Referrals: Cathy Brito CRNP [Nurse Practitioner] - 11/14/18 2:20 pm (A follow up appt. has been made with JAYY London, on November 14 at 2:20pm.) Abena Gill MD [Primary Care Provider] - 11/15/18 10:00 am (A follow up appt. was made with Dr. Gill on November 15, at 10:00am.) Diet: Regular Addtl Provider Instructions: From Ruiz Gallardo - hospitalist - You were treated for COPD exacerbation, low sodium level, probable mild alcohol withdrawal, and stomach issues. All problems improved while here. Your lungs are now clear, your sodium level is normal, and you are feeling better. We have recommended rehab to you to help with your balance and strength but you have declined. We also recommended home health services and home PT but you have also declined. You can change your mind at any time; if you do simply let us or your family doctor know that you want home health and home PT. Recommendations: 1. take prednisone taper; start this tomorrow; take with food. 2. take doxycycline antibiotic - 100mg twice daily for 5 days. Start this tomorrow morning. * the doxycycline antibiotic can cause heartburn * it can also cause a rash if you go out in the sun; for the next 10 days be sure to cover up and use sunscreen 3. for your COPD - * take advair 1 puff twice daily every day; rinse your mouth with water after using it * combivent inhaler - 1 puff every 6 hours as needed for cough/wheezing/shortness of breath * you may also use [id number] mucinex up to 1200mg twice a day for cough/congestion * try to quit smoking, if possible; talk to your doctor about ways to remain smoke-free 4. stop your aspirin for now. 5. take omeprazole 40mg once daily in the morning for your stomach. See the GI doctor as scheduled in the near future. 6. take a multivitamin every day - indefinitely. 7. take folic acid and thiamine vitamins for 1 month each then stop. 8. try to limit alcohol intake to 1 beer per day or less. Follow-up -- see separate section. Return to [facility] if -- * you have fevers over 100.5 degrees * you have worsening cough, shortness of breath, or wheezing * you have chest pains * you have severe diarrhea * any other concerns Prescriptions: New fluticasone propion-salmeterol [Advair Diskus] 250-50 mcg/dose Blister With Device 1 puff inhalation BID Qty: 1 RF: 2 thiamine HCl (vitamin B1) [Vitamin B-1] 100 mg Tablet 200 mg PO BID Qty: 120 RF: 0 folic acid 1 mg Tablet 1 mg PO DAILY Qty: 30 RF: 0 Certavite-Antioxidant 18-400 mg-mcg Tablet 1 tab PO QAM Qty: 90 RF: 3 Combivent Respimat 20-100 mcg/actuation Mist 1 puff inhalation QID Qty: 1 RF: 2 omeprazole 40 mg capsule,delayed release(DR/EC) 40 mg PO QAM Qty: 30 RF: 1 prednisone 10 mg tablet 10 mg PO DIRECTED Qty: 12 RF: 0 Discontinued aspirin 81 mg Tablet,Delayed Release (Dr/Ec) 81 mg PO DAILY RF: 0 No Action aspirin 81 mg tablet PO .TAKE 1 TABLET DAILY. RF: 0 albuterol sulfate [Ventolin HFA] 90 mcg/actuation HFA aerosol inhaler See Rx Instructions INH .COMPLEX PRN (Reason: shortness of breath or wheezing) Qty: 18 RF: 0 cetirizine 10 mg tablet 10 mg PO DAILY PRN (Reason: allergy symptoms) Qty: 30 RF: 0 montelukast 10 mg tablet 10 mg PO QPM Qty: 30 RF: 0 Stand-Alone Forms: [facility] Discharge Orders: Discharge Order (Routine); Ordered 11/09/18 Ordered By: Ruiz Gallardo Admission Data Admit Date/Time: 11/06/18 08:14 Attending Provider: Ruiz Gallardo Admit Provider: Ruiz Gallardo Primary Care Provider: Abena Gill Service: Telemetry Other Interventions: Discharge Summary Assessment (RN) Last Done: 11/09/18 20:31 Pending Studies at Discharge: No DC Date/Time DO NOT enter until pt leaves facility: 11/09/18 20:55
[2018-11-09] MEDS ORDERED: THIAMINE HCL 100 MG TAB PO SCH (21:00)
[2018-11-10] MEDS ORDERED: FOLIC ACID 1 MG TAB PO SCH (09:00)
== END 2018-11-09 20:55 | disposition home or self-care (01) | DRG 641 ==
LOC: ED 05:22 → 2S 08:14
DX: Z88.0 Allergy status to penicillin; F17.200 Nicotine dependence, unspecified, uncomplicated; E87.1 Hypo-osmolality and hyponatremia; Z88.1 Allergy status to other antibiotic agents; J44.1 Chronic obstructive pulmonary disease with (acute) exacerbation; Z79.82 Long term (current) use of aspirin; E43 Unspecified severe protein-calorie malnutrition; R64 Cachexia; Z68.1 Body mass index [BMI] 19.9 or less, adult

== ENCOUNTER 2018-12-29 19:31 | Inpatient (IN) ==
[2018-12-29] MEDS ORDERED: LEVOFLOXACIN/D5W 750 MG/150 ML BAG IV STA (19:44)
[2018-12-29] MEDS ORDERED: methylPREDNISolone 125 MG/2 ML VIAL IV STA (19:44)
[2018-12-29] MEDS ORDERED: ALBUT/IPRATROP 3MG/0.5MG NEB 3 ML VIAL INH STA (19:44)
[2018-12-29] MEDS ORDERED: SODIUM CHLORIDE 0.9% 500 ML IV SCH (19:45)
--- NOTE | 2018-12-29 20:11 | XRay Report ---
XR chest 1V portable CLINICAL HISTORY: 58 years-old Male presenting with Dyspnea. TECHNIQUE: Portable upright AP view of the chest was obtained. COMPARISON: 11/06/2018. FINDINGS: Cardiomediastinal silhouette normal. Lungs are hyperinflated. Opacity in the right upper lung new fro m prior. This extends to the right suprahilar region and right apex. No pleural effusion or pneumotho rax. Osteopenia may be present. Upper abdomen normal. IMPRESSION: 1. Emphysema with a superimposed focal infiltrate in the right upper lung consistent with pneumonia. Electronically signed by: Cameron Romero M.D. 12/29/2018 8:10 PM
[2018-12-29 20:22] LABS: INR 1.2 (0.9-1.1); Partial Thromboplastin Ratio 1.1; Partial Thromboplastin Time 28.9 Seconds (21.0-31.0)
[2018-12-29 20:25] LABS: Albumin Level 2.5 gm/dl (3.4-5.0); BUN Creatinine Ratio 18.2 (10-20); Calcium 9.7 mg/dl (8.5-10.1); Creatinine Clr Calc Pharmacy 54.3 ml/min; Est GFR (African American) 114.9; Est GFR (Non-African American) 99.2; Potassium 3.3 mmol/L (3.5-5.1)
[2018-12-29 20:31] LABS: Albumin Globulin Ratio 0.6 (0.9-2); Bilirubin,Total 0.5 mg/dl (0.2-1); Globulin 4.4 gm/dl (2.5-4.0); Total Protein 6.9 gm/dl (6.4-8.2); Troponin I 0.284 ng/ml (0-0.045)
[2018-12-29] MEDS ORDERED: cefTRIAXone SODIUM 1,000 MG in DEXTROSE 5% 50 ML IV STA (20:36)
[2018-12-29] MEDS ORDERED: SODIUM CHLORIDE 0.9% 1000ML 2,000 ML IV ONE (20:36)
[2018-12-29 20:45] LABS: Basophils # (auto) 0.03 K/uL (0-0.2); Basophils % (auto) 0.1 %; Echinocytes 1+; Eosinophils # (auto) 0.01 K/uL (0-0.5); Hematocrit (blood only) 39.6 % (42-52); Hemoglobin 14.5 g/dL (14.0-18.0); Immature Granulocytes # (auto) 0.36 K/uL (0.00-0.02); Lymphocytes # (auto) 1.08 K/uL (1.2-3.4); Mean Corpuscular Hemoglobin 35.4 pg (25-34); Mean Corpuscular Hgb Conc 36.6 g/dL (32-36); Mean Corpuscular Volume 96.6 fL (80-100); Mean Platelet Volume 9.3 fL (7.4-10.4); Monocytes % (auto) 6.4 %; Neutrophils # (auto) 32.35 K/uL (1.4-6.5); Neutrophils % (auto) 89.5 %; Platelet Count 405 K/uL (130-400); RDW Standard Deviation 45.8 fL (36.4-46.3); White Blood Count 36.13 K/uL (4.8-10.8)
[2018-12-29] MEDS ORDERED: cefTRIAXone SODIUM 1000MG/50ML D5W IV ONE (20:58)
[2018-12-29] MEDS ORDERED: THIAMINE HCL 100 MG in SYRINGE 9 ML IV STA (21:19)
[2018-12-29] MEDS ORDERED: FOLIC ACID 1 MG in SYRINGE 9.8 ML IV STA (21:19)
--- NOTE | 2018-12-29 22:15 | History & Physical Report ---
Date of Service December 29, 2018 Assessment & Plan (1) Sepsis: Sepsis due to pneumonia growing right upper lobe- Given ceftriaxone IV and levofloxacin IV in the ED, and will be continued. Solu-Medrol 40 mg IV every 8 hours. Xopenex/Atrovent nebs every 6 hours while awake and every 2 hours as needed. Sputum Gram stain and culture. Guaifenesin extended release 600 mg p.o. twice daily. Present on Admission?: Yes (2) Pneumonia involving right lung: See above. Patient may require CT to look for possible postobstructive process if does not respond in an appropriate time Present on Admission?: Yes (3) Non-ST elevation SC (NSTEMI): NSTEMI/secondary to atrial fibrillation with RVR/sepsis due to right upper lobe pneumonia- The patient will be admitted to telemetry for serial cardiac enzymes, serial EKG's, cardiac rhythm monitoring and a 2-D echocardiogram with Dopplers. Present on Admission?: Yes (4) Atrial fibrillation with RVR: Start heparin drip low-dose no bolus. We will optimize electrolytes, and intravascular fluid volume is principal treatment initially, due to relative hypotension. Lopressor 5 mg IV every 4 hours as needed heart rate greater than 110 Present on Admission?: Yes (5) COPD exacerbation: See above Present on Admission?: Yes (6) Hypotension: Multifactorial, associated with hypoalbuminemia, atrial fib with RVR and sepsis. Give albumin 25 g IV x2, and place on NSS plus KCl 20 mEq 100 mils per hour. Present on Admission?: Yes (7) Alcohol abuse: Patient drinks 6-8 beers a day, and reports drinking 4 beers [address] will [address] him on the alcohol withdrawal scale. He reports no issues with withdrawal in the past. Present on Admission?: Yes (8) Current every day smoker: Cessation counseling. Present on Admission?: Yes History of Present Illness Chief Complaint: The patient presents to the emergency department with shortness of breath that began about 1 hour prior to arrival. Primary Care Provider: Abena Gill MD The patient is a 58-year-old male with a past medical history including COPD, tobacco abuse, alcohol abuse, GI bleed and previous history of pneumonia, who presents to the emergency department with acute onset of shortness of breath similar to his previous episode of pneumonia. In the emergency department, he was found to be in atrial fibrillation with RVR, with borderline blood pressure of 87/70, and a right upper lobe pneumonia on chest x-ray. Allergies Allergy/AdvReac Type Severity Reaction Status Date / Time erythromycin base Allergy Unknown Unknown Verified 12/29/18 21:10 Nitrate Analogues Allergy Unknown Difficulty Verified 12/29/18 21:10 Breathing Penicillins Allergy Unknown Unknown Verified 12/29/18 21:10 Home Medications Home Medications Medication Instructions Recorded Confirmed Type albuterol sulfate [Ventolin HFA] 1 - 2 puff INHALATION .Q4-6HRS PRN 12/29/18 12/29/18 History budesonide-formoterol [Symbicort] 2 puff INHALATION BID 12/29/18 12/29/18 History cetirizine 10 mg PO DAILY PRN 12/29/18 12/29/18 History Past Med/Surg History Medical History GI bleed (Resolved) Pneumonia (Resolved) COPD (chronic obstructive pulmonary disease) (Chronic) Abdominal mass removed at [facility] - he cannot recall details; he was in 3rd grade Avascular necrosis of hip right Surgical History Hx of appendectomy Family History Father Hairy cell leukemia Mother Multiple myeloma Social History Preferred Language: Kenyan Communication Ability: Effective Beliefs That Will Affect Care: None marital status: Single marital status details: no children Current Living Situation: Alone Current Living Situation Comment: lives in [place] by himself current occupational status: disabled Other Information That Helps Us Care for You: No other: 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 Feels Safe at Home: Yes Smoking Status: Current every day smoker Tobacco Type: cigarettes ; Age Started Using Tobacco: 16 ; packs per day: 1 ; Cigarettes Per Day: 20 ; Do You Dip or Chew Tobacco: Yes ; Hx Alcohol Use: Yes Alcohol type: beer Alcohol Intake Frequency: Daily Alcohol Intake Frequency Comment: 4-6 beers/day Hx Substance Use: No Review of Systems Review of Systems: The patient denies palpitations, lower extremity swelling, sore throat, fevers, chills, sweats, nausea, vomiting, diarrhea , constipation, abdominal pain, pelvic pain, blood in urine or stool, dysuria, urinary frequency or urgency, lightheadedness, dizziness, headache, memory loss, loss of consciousness, rash, abnormal bru ising or bleeding, imbalance, focal or generalized weakness, numbness or tingling in arms or legs, generalized arthralgias or myalgias, back or neck pain, or night sweats. The review of systems is otherwise negative other than for that already noted above, and at least 10 systems have been reviewed. Physical Exam Physical Exam: The patient is awake, alert and oriented 3, appears malnourished, normocephalic and atraumatic, lying in bed and in no acute distress. HEENT--PERRL, EOMI, mucous membranes and oropharynx dry. Neck--supple. No JVD. No bruits. Thyroid normal, trachea midline, no adenopathy. Heart--normal S1 and S2. No murmurs, rubs or gallops. Lungs--coarse breath sounds right side, normal on left Abdomen--normal bowel sounds and soft. Nontender. Nondistended. Extremities--no cyanosis or clubbing. No edema. There are good distal pulses b/l. Dermatologic--normal skin turgor, normal color, no abnormal lymph nodes, no rash. Neurologic--cranial nerves II through XII grossly intact. Rheumatologic--normal range of motion. Psychiatric--normal affect. Results & Data Vital Signs (Past 12 Hours) Vital Signs Temp Pulse Pulse Resp BP Pulse Ox 12/29/18 21:00 135 H 27 H 87/70 L 95 12/29/18 20:30 131 H 29 H 100/73 100 12/29/18 20:03 137 H 20 94 12/29/18 20:00 138 H 27 H 92/67 L 93 12/29/18 19:50 147 H 26 H 95 12/29/18 19:41 97.3 F L 143 H 33 H 115/87 95 12/29/18 19:38 138 H 25 H 115/87 93 Laboratory Results Laboratory Results WBC 36.13 K/uL (4.8-10.8) H* 12/29/18 19:47 RBC 4.10 M/uL (4.7-6.1) L 12/29/18 19:47 Hgb 14.5 g/dL (14.0-18.0) 12/29/18 19:47 Hct 39.6 % (42-52) L 12/29/18 19:47 MCV 96.6 fL (80-100) 12/29/18 19:47 MCH 35.4 pg (25-34) H 12/29/18 19:47 MCHC 36.6 g/dL (32-36) H 12/29/18 19:47 RDW Std Deviation 45.8 fL (36.4-46.3) 12/29/18 19:47 RDW Coeff of Jm 13.0 % (11.5-14.5) 12/29/18 19:47 Plt Count 405 K/uL (130-400) H 12/29/18 19:47 MPV 9.3 fL (7.4-10.4) 12/29/18 19:47 Immature Gran % (Auto) 1.0 % 12/29/18 19:47 Neut % (Auto) 89.5 % 12/29/18 19:47 Lymph % (Auto) 3.0 % 12/29/18 19:47 [place] % (Auto) 6.4 % 12/29/18 19:47 Eos % (Auto) 0.0 % 12/29/18 19:47 Baso % (Auto) 0.1 % 12/29/18 19:47 Immature Gran # (Auto) 0.36 K/uL (0.00-0.02) H 12/29/18 19:47 Neut # (Auto) 32.35 K/uL (1.4-6.5) H 12/29/18 19:47 Lymph # (Auto) 1.08 K/uL (1.2-3.4) L 12/29/18 19:47 [place] # (Auto) 2.30 K/uL (0.11-0.59) H 12/29/18 19:47 Eos # (Auto) 0.01 K/uL (0-0.5) 12/29/18 19:47 Baso # (Auto) 0.03 K/uL (0-0.2) 12/29/18 19:47 Echinocytes 1+ 12/29/18 19:47 PT 12.0 Seconds (9.0-12.0) 12/29/18 19:47 INR 1.2 (0.9-1.1) H 12/29/18 19:47 APTT 28.9 Seconds (21.0-31.0) 12/29/18 19:47 PTT Ratio 1.1 12/29/18 19:47 Sodium 128 mmol/L (136-145) L 12/29/18 19:47 Potassium 3.3 mmol/L (3.5-5.1) L 12/29/18 19:47 Chloride 92 mmol/L (98-107) L 12/29/18 19:47 Carbon Dioxide 24 mmol/L (21-32) 12/29/18 19:47 Anion Gap 12.0 (3-11) H 12/29/18 19:47 BUN 15 mg/dl (7-18) 12/29/18 19:47 Creatinine 0.80 mg/dl (0.6-1.4) 12/29/18 19:47 Est Cr Clr Drug Dosing 54.3 ml/min 12/29/18 19:47 Est GFR ( Amer) 114.9 12/29/18 19:47 Est GFR (Non-Af Amer) 99.2 12/29/18 19:47 BUN/Creatinine Ratio 18.2 (10-20) 12/29/18 19:47 Glucose 134 mg/dl (70-99) H 12/29/18 19:47 Calcium 9.7 mg/dl (8.5-10.1) 12/29/18 19:47 Total Bilirubin 0.5 mg/dl (0.2-1) 12/29/18 19:47 AST 53 U/L (15-37) H 12/29/18 19:47 ALT 23 U/L (12-78) 12/29/18 19:47 Alkaline Phosphatase 102 U/L (45-117) 12/29/18 19:47 Troponin I 0.284 ng/ml (0-0.045) H* 12/29/18 19:47 Total Protein 6.9 gm/dl (6.4-8.2) 12/29/18 19:47 Albumin 2.5 gm/dl (3.4-5.0) L 12/29/18 19:47 Globulin 4.4 gm/dl (2.5-4.0) H 12/29/18 19:47 Albumin/Globulin Ratio 0.6 (0.9-2) L 12/29/18 19:47 Diagnostic Findings [facility], [place] [phone] XRay Report Patient: ELISE BARAHONA CAdmit Date: 12/29/18 MR#: [id number]: 120 JOSE GAMEZ Acct ID:[id number]: [facility] Zip: [place] [address] Age: 58Location: ED Sex: M Room/Bed: Att Phy: Diagnosis: SOB Kas[facility]: [facility] Fam Phy: Interpreting Phy: Cameron Romero MD Admit Phy: Ordering Phy: Jairo Anderson, cc: ~ XR chest 1V portable CLINICAL HISTORY: 58 years-old Male presenting with Dyspnea. TECHNIQUE: Portable upright AP view of the chest was obtained. COMPARISON: 11/06/2018. FINDINGS: Cardiomediastinal silhouette normal. Lungs are hyperinflated. Opacity in the right upper lung new from prior. This extends to the right suprahilar region and right apex. No pleural effusion or pneumothorax. Osteopenia may be present. Upper abdomen normal. IMPRESSION: 1. Emphysema with a superimposed focal infiltrate in the right upper lung consistent with pneumonia. Electronically signed by: Cameron Romero M.D. 12/29/2018 8:10 PM Dictated: 12/29/182008 Transcribed: 12/29/182008 Code Status & VTE Plan Code Status Full code VTE Prophylaxis Plan VTE Prophylaxis will be ordered: Yes PG Care Time/CCT Total # of Minutes Spent Total Time Spent with Patient: Total time spent is greater than 50% in coordination of care (as documented) at patient's floor/unit and/or counseling patient: (1) Sepsis Sepsis acute organ dysfunction status: unspecified Sepsis type: sepsis due to unspecified organism Qualified Code(s): A41.9 - Sepsis, unspecified organism
[2018-12-29] MEDS ORDERED: POLYETHYLENE (MIRALAX) 17 GM PACK PO PRN (22:55)
[2018-12-29] MEDS ORDERED: MAGNESIUM HYDROXIDE SUSP 30 ML UDC PO PRN (22:55)
--- NOTE | 2018-12-29 23:40 | Emergency Department Note ---
Entered by Mariama Ricardo acting as a scribe for Jairo Anderson DO History of Present Illness General Chief complaint: Shortness of Breath/Dyspnea Source: patient History of Present Illness Onset (ago): hour(s) 1 Location: chest (shortness of breath) Pain Consistency: + other (worsening) Relieved By: + none Associated symptoms: + denies other symptoms (diarrhea, abdominal pain, sore throat, and ear pain), + cough and + other (runny nose); no nausea/vomiting The patient is a 58 year-old white M w/ PMHx of smoking, COPD, leukopenia, and alcohol abuse who presents to the ED w/ CC of worsening shortness of breath beginning 1 hour ago. He states that he has had shortness of breath in the past which was due to pneumonia. He notes that he is currently experiencing coughing and a runny nose. He adds that these symptoms started today. He denies experiencing nausea, vomiting, diarrhea, abdominal pain, sore throat, and ear pain. He notes that he has not been around anybody sick. He denies that he does not have a history of A Fib. No other exacerbating or remitting factors. He does admit to drinking about 6 beers a day and he has been doing this for decades. He notes this feels like the last time he had pneumonia. No other exacerbating or remitting factors. Home Medications Home Medications Medication Instructions Recorded Confirmed Type albuterol sulfate [Ventolin HFA] 1 - 2 puff INHALATION .Q4-6HRS PRN 12/29/18 12/29/18 History budesonide-formoterol [Symbicort] 2 puff INHALATION BID 12/29/18 12/29/18 History cetirizine 10 mg PO DAILY PRN 12/29/18 12/29/18 History Allergies Allergy/AdvReac Type Severity Reaction Status Date / Time erythromycin base Allergy Unknown Unknown Verified 12/29/18 21:10 Nitrate Analogues Allergy Unknown Difficulty Verified 12/29/18 21:10 Breathing Penicillins Allergy Unknown Unknown Verified 12/29/18 21:10 Past Med/Surg History Medical History GI bleed (Resolved) Pneumonia (Resolved) COPD (chronic obstructive pulmonary disease) (Chronic) Abdominal mass removed at [facility] - he cannot recall details; he was in 3rd grade Avascular necrosis of hip right Surgical History Hx of appendectomy Family History Father Hairy cell leukemia Mother Multiple myeloma Social History Preferred Language: Omani Communication Ability: Effective Beliefs That Will Affect Care: None marital status: Single marital status details: no children Current Living Situation: Alone Current Living Situation Comment: lives in [place] by himself current occupational status: disabled Other Information That Helps Us Care for You: No other: 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 and A total of 10 systems reviewed and were otherwise negative Physical Exam Vital Signs Vital Signs - 24 hr 12/29/18 19:38 12/29/18 19:41 12/29/18 19:50 Temperature 36.3 C L Temperature Source Oral Sepsis Recent Fever Within 48 Hours No Sepsis New/Unexplained Change in Mental Status No Sepsis Action Taken by Nursing No Action Required Pulse Rate 138 H 143 H 147 H Pulse Rate [Right Finger] Pulse Rate from SpO2 Sensor 137 H 143 H Pulse Rhythm Irregular Respiratory Rate 25 H 33 H 26 H Respiratory Effort / Characteristics Blood Pressure 115/87 115/87 Blood Pressure Mean 96 96 Blood Pressure Position Lying Pulse Oximetry 93 95 95 Oxygen Delivery Method Room Air 12/29/18 20:00 12/29/18 20:03 12/29/18 20:30 Temperature Temperature Source Sepsis Recent Fever Within 48 Hours Sepsis New/Unexplained Change in Mental Status Sepsis Action Taken by Nursing Pulse Rate 138 H 131 H Pulse Rate [Right Finger] 137 H Pulse Rate from SpO2 Sensor 130 H 131 H Pulse Rhythm Respiratory Rate 27 H 20 29 H Respiratory Effort / Characteristics Non-Labored Blood Pressure 92/67 L 100/73 Blood Pressure Mean 75 82 Blood Pressure Position Pulse Oximetry 93 94 100 Oxygen Delivery Method Room Air 12/29/18 21:00 12/29/18 21:30 12/29/18 22:00 Temperature Temperature Source Sepsis Recent Fever Within 48 Hours Sepsis New/Unexplained Change in Mental Status Sepsis Action Taken by Nursing Pulse Rate 135 H 128 H 125 H Pulse Rate [Right Finger] Pulse Rate from SpO2 Sensor 126 H 117 H 127 H Pulse Rhythm Respiratory Rate 27 H 19 18 Respiratory Effort / Characteristics Blood Pressure 87/70 L 78/65 L 89/68 L Blood Pressure Mean 75 69 75 Blood Pressure Position Pulse Oximetry 95 97 98 Oxygen Delivery Method GENERAL: Sitting up in bed, significant distress, dyspneic with conversation, cachectic and malnourished EYE EXAM: normal conjunctiva. OROPHARYNX: no exudate, no erythema, lips, buccal mucosa, and tongue normal and mucous membranes are dry NECK: supple, no nuchal rigidity, no adenopathy, non-tender LUNGS: Rhonchi bilateral bases with diminished breath sounds. Normal chest wall mechanics HEART: Tachycardic and regular regular, S1 normal and S2 normal ABDOMEN: abdomen soft, non-tender, normo-active bowel sounds, no masses, no rebound or guarding. BACK: Back is symmetrical on inspection and there is no deformity, no midline tenderness, no CVA tenderness. SKIN: no rashes and no bruising UPPER EXTREMITIES: upper extremities are grossly normal. LOWER EXTREMITIES: No pitting edema. Calves are equal bilateral NEURO EXAM: Normal sensorium, cranial nerves II-XII grossly intact, normal speech, no gross weakness of arms, no gross weakness of legs. Course ED COURSE: Vital signs were reviewed and showed hypotension and tachycardia. The patients medical record was reviewed The above diagnostic studies were performed and reviewed. ED treatments and interventions as stated above. 1938: The patient was evaluated in room B11B. A complete history and physical examination was performed. 2106: I reviewed the patient's case with Dr. Kwabena Lara, [facility] Hospitalist. He will evaluate the patient for further management. 2109: Upon reevaluation, the patient is doing no better. I discussed my findings with the patient and he understands and agrees with the treatment plan. Based on the patients age, coexisting illnesses, exam and lab findings the decision to treat as an inpatient was made. The patient remained stable while under my care. The patient will be evaluated for further management. Consultations Consultation #1: I reviewed the patient's case with Dr. Kwabena Lara, [facility] Hospitalist. He will evaluate the patient for further management. Time: 21:07 Administered Medications Discontinued Medications Albuterol (Duoneb) 9 ml INH NOW STA Stop: 12/29/18 19:45 Last Admin: 12/29/18 20:01 Dose: 9 ml Documented by: [id number] Ceftriaxone Sodium (Rocephin) Confirm Administered Dose 1,000 mg IV .STK-MED ONE Stop: 12/29/18 20:59 Last Admin: 12/29/18 21:04 Dose: 1,000 mg Documented by: [id number] Levofloxacin/Dextrose (Levaquin/D5w) 750 mg in 150 mls @ 100 mls/hr IV NOW STA Stop: 12/29/18 21:13 Last Infusion: 12/29/18 21:46 Dose: 0 mls/hr Documented by: [id number] Admin: 12/29/18 20:12 Dose: 100 mls/hr Documented by: [id number] Sodium Chloride (Nss) 500 mls @ 999 mls/hr IV .Q31M CECILIO Stop: 12/29/18 20:15 Last Infusion: 12/29/18 21:04 Dose: 0 mls/hr Documented by: [id number] Admin: 12/29/18 20:11 Dose: 999 mls/hr Documented by: [id number] Ceftriaxone Sodium 1,000 mg/ (Dextrose) 60 mls @ 100 mls/hr IV NOW STA; Protocol Stop: 12/29/18 21:11 Last Admin: 12/29/18 21:04 Dose: Not Given Documented by: [id number] Sodium Chloride (Nss 1000ml) 2,000 mls @ 999 mls/hr IV .Q2H1M ONE Stop: 12/29/18 22:36 Last Infusion: 12/29/18 23:07 Dose: 0 mls/hr Documented by: [id number] Admin: 12/29/18 21:04 Dose: 999 mls/hr Documented by: [id number] Folic Acid 1 mg/ Syringe 10 mls @ 5 mls/min IV NOW STA Stop: 12/29/18 21:20 Last Admin: 12/29/18 21:45 Dose: 5 mls/min Documented by: [id number] Thiamine HCl 100 mg/ Syringe 10 mls @ 2 mls/min IV NOW STA Stop: 12/29/18 21:23 Last Admin: 12/29/18 21:45 Dose: 2 mls/min Documented by: [id number] Methylprednisolone (Solumedrol) 50 mg IV NOW STA Stop: 12/29/18 19:45 Last Admin: 12/29/18 20:11 Dose: 50 mg Documented by: [id number] Medical Decision Making Differential Diagnosis Differential diagnosis includes etiologies such as sepsis, UTI, pneumonia, metabolic, electrolyte abnormalities, cardiac sources, intracerebral event, toxicologic, neurological, as well as others were entertained. Medical Records Attestation: I reviewed the patient's medical records. Home Medications Current Medication List: was personally reviewed by me Laboratory Data Attestation: I reviewed the patient's lab results. Result diagrams: 12/29/18 19:47 12/29/18 19:47 Lab Results 12/29/18 12/29/18 12/29/18 Range/Units 19:47 19:47 19:47 WBC 36.13 H* (4.8-10.8) K/uL RBC 4.10 L (4.7-6.1) M/uL Hgb 14.5 (14.0-18.0) g/dL Hct 39.6 L (42-52) % MCV 96.6 (80-100) fL MCH 35.4 H (25-34) pg MCHC 36.6 H (32-36) g/dL RDW Std Deviation 45.8 (36.4-46.3) fL RDW Coeff of Jm 13.0 (11.5-14.5) % Plt Count 405 H (130-400) K/uL MPV 9.3 (7.4-10.4) fL Immature Gran % (Auto) 1.0 % Neut % (Auto) 89.5 % Lymph % (Auto) 3.0 % [place] % (Auto) 6.4 % Eos % (Auto) 0.0 % Baso % (Auto) 0.1 % Immature Gran # (Auto) 0.36 H (0.00-0.02) K/uL Neut # (Auto) 32.35 H (1.4-6.5) K/uL Lymph # (Auto) 1.08 L (1.2-3.4) K/uL [place] # (Auto) 2.30 H (0.11-0.59) K/uL Eos # (Auto) 0.01 (0-0.5) K/uL Baso # (Auto) 0.03 (0-0.2) K/uL Echinocytes 1+ PT 12.0 (9.0-12.0) Seconds INR 1.2 H (0.9-1.1) APTT 28.9 (21.0-31.0) Seconds PTT Ratio 1.1 Sodium 128 L (136-145) mmol/L Potassium 3.3 L (3.5-5.1) mmol/L Chloride 92 L (98-107) mmol/L Carbon Dioxide 24 (21-32) mmol/L Anion Gap 12.0 H (3-11) BUN 15 (7-18) mg/dl Creatinine 0.80 (0.6-1.4) mg/dl Est Cr Clr Drug Dosing 54.3 ml/min Est GFR ( Amer) 114.9 Est GFR (Non-Af Amer) 99.2 BUN/Creatinine Ratio 18.2 (10-20) Glucose 134 H (70-99) mg/dl Calcium 9.7 (8.5-10.1) mg/dl Total Bilirubin 0.5 (0.2-1) mg/dl AST 53 H (15-37) U/L ALT 23 (12-78) U/L Alkaline Phosphatase 102 (45-117) U/L Troponin I 0.284 H* (0-0.045) ng/ml Total Protein 6.9 (6.4-8.2) gm/dl Albumin 2.5 L (3.4-5.0) gm/dl Globulin 4.4 H (2.5-4.0) gm/dl Albumin/Globulin Ratio 0.6 L (0.9-2) Imaging Data Radiologist's Impression: Radiology results as stated below per my review and the radiologist's interpretation: XR chest 1V portable CLINICAL HISTORY: 58 years-old Male presenting with Dyspnea. TECHNIQUE: Portable upright AP view of the chest was obtained. COMPARISON: 11/06/2018. FINDINGS: Cardiomediastinal silhouette normal. Lungs are hyperinflated. Opacity in the right upper lung new from prior. This extends to the right suprahilar region and right apex. No pleural effusion or pneumothorax. Osteopenia may be present. Upper abdomen normal. IMPRESSION: 1. Emphysema with a superimposed focal infiltrate in the right upper lung consistent with pneumonia. Electronically signed by: Cameron Romero M.D. 12/29/2018 8:10 PM ECG Data Attestation: I personally reviewed and interpreted this ECG as follows: Indication: SOB/dyspnea Rate (beats per minute): 136 Rhythm: other (multifocal atrial tachycardia) Findings: + other (normal axis) and + Q waves (septal) Blood Pressure Blood Pressure Findings: Low blood pressure Blood Pressure Disposition: further management by hospitalist JAYDON Narrative Patient is a 58-year-old male who presents the ER dyspneic with conversation and tachypneic and tachycardic. Initial heart rate was found to be in the 130s- 140s. Initially with his history of COPD believe this to be secondary to a COPD exacerbation. Patient was given an hour-long neb treatment. Chest x-ray eventually resulted and showed a right midlung pneumonia. IV was established blood work was obtained and showed a leukocytosis of 36,000. No significant anemia. BMP with hyponatremia at 128 and hypokalemia at 3.3. LFTs were unremarkable. Troponin was elevated 0.284. EKG showed no ST segment elevations. Patient was given IV fluids x2 L, IV Rocephin and IV Levaquin. He was updated at bedside. Systolic blood pressures did trend down into the 70s but following the fluids trended back up into the 90s. Patient was monitored closely and was updated bedside and discussed with the hospitalist for admission secondary to sepsis with hypotension and systolic pressures in the 70s which were responsive to fluids along with a white count of 36,000 and a chest x-ray showing a right midlung infiltrate. Impression & Plan Sepsis, COPD exacerbation, Non-ST elevation NC (NSTEMI), Leukocytosis, Alcohol abuse, Tobacco dependence Critical Care Time Critical Care Time: Yes Total Critical Care Time: 30 I have personally spent 30 minutes of critical care time in the direct man agement of this patient. This includes bedside care, interpretation of diagnostic studies, and testing, discussion with consultants, patient, and family members, and other required patient management activities. This 30 minutes is in excess of all separately billable procedures. Discharge Plan Visit Data *Final* Discharge Date/Time: 12/29/18 22:39 Chief Complaint: Shortness of Breath/Dyspnea ED Provider: Jairo Anderson Discharge Problem: Sepsis, COPD exacerbation, Non-ST elevation NC (NSTEMI), Leukocytosis, Alcohol abuse, Tobacco dependence Patient Disposition: Admitted As Inpatient Discharge Instructions Interventions: ED Discharge Assessment Last Done: 12/29/18 22:39 Discharge Problem: Sepsis Qualifiers: Sepsis type: sepsis due to unspecified organism Sepsis acute organ dysfunction status: unspecified Qualified Code(s): A41.9 - Sepsis, unspecified organism Leukocytosis Qualifiers: Leukocytosis type: unspecified Qualified Code(s): D72.829 - Elevated white blood cell count, unspecified The scribe's documentation has been prepared under my direction and personally reviewed by me in its entirety. I confirm that the note above accurately reflects all work, treatment, procedures, and medical decision making performed by me.
[2018-12-29] MEDS: ALBUMIN 25% 50 ML IV SCH (23:58)
[2018-12-30] MEDS: ALBUMIN 25% 50 ML IV SCH (00:43)
[2018-12-30] MEDS: NSS + 20MEQ KCL 20 MEQ/1,000 ML BAG IV SCH ×3 (00:44→21:07)
[2018-12-30] MEDS: IPRATROPIUM BROMIDE NEB SOLN 0.02% 2.5 ML VIAL INH SCH ×3 (01:54→13:57)
[2018-12-30] MEDS ORDERED: XOPENEX/ATROVENT 0.63mg/0.5MG NEB COMBO NEB SCH (02:00)
[2018-12-30] MEDS: LEVALBUTEROL HCL 0.63 MG/3 ML NEB NEB SCH ×3 (02:00→13:57)
[2018-12-30] MEDS ORDERED: Heparin IV Low Dose *NO* Bolus IV SCH (03:19)
[2018-12-30] MEDS ORDERED: HEPARIN SODIUM/DEXTROSE 25,000 UNITS/500 ML BAG IV SCH (03:30)
[2018-12-30] MEDS: methylPREDNISolone 40 MG in SYRINGE 0 ML IV SCH ×2 (04:08→12:34)
[2018-12-30 04:28] LABS: Appearance Urine Clear (Clear); Bilirubin Urine Negative (Negative); Blood Urine Negative (Negative); Color Urine Yellow; Glucose Urine UA Negative (Negative); Ketones Urine Negative (Negative); Leukocyte Esterase Urine Negative (Negative); Nitrite Urine Negative (Negative); Protein Urine Negative (Negative); Specific Gravity Urine 1.017 (1.000-1.030); Urobilinogen Urine Negative (Negative)
[2018-12-30 05:04] LABS: Albumin Globulin Ratio 0.8 (0.9-2); Albumin Level 2.2 gm/dl (3.4-5.0); BUN Creatinine Ratio 27.2 (10-20); Bilirubin,Total 0.3 mg/dl (0.2-1); Calcium 7.9 mg/dl (8.5-10.1); Creatinine Clr Calc Pharmacy 107.2 ml/min; Est GFR (Non-African American) 123.4; Globulin 2.9 gm/dl (2.5-4.0); Magnesium 2.1 mg/dl (1.8-2.4); Potassium 3.4 mmol/L (3.5-5.1); Total Protein 5.1 gm/dl (6.4-8.2); Troponin I 0.472 ng/ml (0-0.045)
[2018-12-30] MEDS: guaiFENesin 600 MG TABCR PO SCH ×2 (08:00→19:58)
[2018-12-30] MEDS ORDERED: THIAMINE HCL 100 MG TAB PO ONE (09:00)
[2018-12-30] MEDS ORDERED: FOLIC ACID 1 MG TAB PO ONE (09:00)
[2018-12-30] MEDS ORDERED: HEPARIN SOD 5,000 UNIT/0.5 ML VIAL SQ SCH (09:00)
[2018-12-30] MEDS ORDERED: dilTIAZem HCl 5 MG/ML 5 ML VIAL IV STA (09:02)
[2018-12-30 10:13] LABS: Basophils # (auto) 0.01 K/uL (0-0.2); Hematocrit (blood only) 31.3 % (42-52); Hemoglobin 11.2 g/dL (14.0-18.0); Immature Granulocytes # (auto) 0.13 K/uL (0.00-0.02); Immature Granulocytes % (auto) 0.6 %; Lymphocytes # (auto) 0.69 K/uL (1.2-3.4); Lymphocytes % (auto) 3.2 %; Mean Corpuscular Hgb Conc 35.8 g/dL (32-36); Mean Corpuscular Volume 95.1 fL (80-100); Mean Platelet Volume 9.1 fL (7.4-10.4); Monocytes # (auto) 0.58 K/uL (0.11-0.59); Monocytes % (auto) 2.7 %; Neutrophils # (auto) 19.84 K/uL (1.4-6.5); Neutrophils % (auto) 93.5 %; Platelet Count 308 K/uL (130-400); RDW Coefficient of Variation 13.1 % (11.5-14.5); RDW Standard Deviation 45.6 fL (36.4-46.3); Red Blood Count 3.29 M/uL (4.7-6.1); White Blood Count 21.25 K/uL (4.8-10.8)
--- NOTE | 2018-12-30 10:13 | Cardiology Consultation ---
Date of Consultation December 30, 2018 Assessment & Plan (1) Sinus tachycardia: Reviewed his EKGs did not reveal any evidence of atrial fibrillation. I reviewed his telemetry which recorded only sinus tachycardia with occasional atrial ectopy. Unfortunately, the computer interpretation of his initial EKG was wrong. He does have a sinus tachycardia. This could be related to his beta agonists treatment, his underlying infection, alcohol withdrawal or hypovolemia. He appears to have had an adequate volume resuscitation and the IVC on echocardiography was plump suggesting a reasonable volume status. I do not believe he requires any systemic anticoagulation or rate control agents for his sinus tachycardia. Hopefully with improvement in his underlying infection or perhaps treatment of early alcohol withdrawal will see some improved heart rates. Present on Admission?: Yes (2) Cardiomyopathy: Echocardiogram performed today demonstrated reduced LV function and also a dilated and poorly functioning right ventricle. His reduced LV function could be related to ischemic heart disease or nonischemic etiologies such as chronic alcohol abuse or stress cardiomyopathy. He does not appear to have overt pulmonary edema. He was lying flat during today's interview without significant distress. His x-ray did not support pulmonary edema. However, I would be cautious about more aggressive resuscitation given his newly discovered LV dysfunction. At some point will need to perform an evaluation for coronary disease. My preference would be cardiac catheterization. I will discuss this with the patient over the next few days and consider this as his clinical condition improves. Obviously initiation of medical therapy with beta-blockade and Donnie inhibition is desirable, but given his current hypotension I think this can be deferred temporarily. He was counseled regarding the potential toxicity of alcohol on the heart. We also had a brief discussion regarding coronary artery disease and its evaluation. His right ventricular dysfunction is likely related to his chronic pulmonary disease. It is possible that his cardiomyopathy in its entirety is related to a nonischemic etiology such as alcohol toxicity. However, his RV size and function seem somewhat out of proportion even to his left ventricular dysfunction. During his last admission he did undergo an evaluation for pulmonary embolus. There was no evidence of PE at that time. (3) Non-ST elevation ME (NSTEMI): He does have elevated cardiac biomarkers. However, that should object to Re of his markers and the overall elevation is not suggestive of an acute coronary syndrome. I suspect this is stress related. He did have an element of hypotension likely had some hypoxia prior to admission. There is also some concern that he has occult coronary disease based on his echocardiographic findings and his risk factors. I think supportive management is indicated currently. A daily aspirin would be a good intervention currently. At some point we will discuss a coronary evaluation given his echocardiogram findings. History of Present Illness Reason for Consultation: Atrial fibrillation Requesting Physician: Jane Attending Physician: Allen Marquez MD History of Present Illness Patient is a 58-year-old gentleman with a known history of significant COPD and recent admission for exacerbation who presented to the hospital for symptoms of worsening dyspnea and cough. Patient was found to have a marked leukocytosis and evidence on x-ray for a consolidative pneumonia. He was admitted and started on antibiotics after an extended beta agonist treatment. At the time of his initial evaluation he was noted to be tachycardic and an EKG was obtained. The computer reading suggested atrial fibrillation in the patient was initiated on systemic anticoagulation. Cardiology was consulted. Patient states that after his recent admission he was feeling better. He tends to be a relatively sedentary individual who does not perform extremes of exertion. He states that he is able to walk a block on flat ground before becoming dyspneic. He feels short of breath when at ascending hills or stairs. He did not endorse symptoms of orthopnea or paroxysmal nocturnal dyspnea. He did not report any forms of chest pain either with exertion or at rest. He is occasionally aware of a rapid heartbeat but this appears to be fairly random and infrequent. He did not report symptoms of dizziness or lightheadedness. He cannot recall suffering a syncopal episode. He did not report fevers or rigors. He has a cough that is productive of scant sputum. This morning he states that his breathing is somewhat improved. Allergies Allergy/AdvReac Type Severity Reaction Status Date / Time erythromycin base Allergy Unknown Unknown Verified 12/29/18 21:10 Nitrate Analogues Allergy Unknown Difficulty Verified 12/29/18 21:10 Breathing Penicillins Allergy Unknown Unknown Verified 12/29/18 21:10 Home Medications Home Medications Medication Instructions Recorded Confirmed Type albuterol sulfate [Ventolin HFA] 1 - 2 puff INHALATION .Q4-6HRS PRN 12/29/18 12/29/18 History budesonide-formoterol [Symbicort] 2 puff INHALATION BID 12/29/18 12/29/18 History cetirizine 10 mg PO DAILY PRN 12/29/18 12/29/18 History Patient History Medical History GI bleed (Resolved) Pneumonia (Resolved) COPD (chronic obstructive pulmonary disease) (Chronic) Abdominal mass removed at [facility] - he cannot recall details; he was in 3rd grade Avascular necrosis of hip right Surgical History Hx of appendectomy Family History Father Hairy cell leukemia Mother Multiple myeloma Social History Preferred Language: Kiswahili Communication Ability: Effective Beliefs That Will Affect Care: None marital status: Single marital status details: no children Current Living Situation: Alone Current Living Situation Comment: lives in [place] by himself current occupational status: disabled Other Information That Helps Us Care for You: No other: 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 He does report drinking several beers every day. He continues to have abdominal fullness and bloating even with small amounts of food. He denies abdominal discomfort or distension. Physical Exam Physical Exam: The patient is alert and oriented. Mood and affect appeared normal. He answered all questions appropriately. Appears thin and chronically ill. HEENT: Pupils are equal and reactive to light and accommodation. Extraocular movements are intact. The sclerae are anicteric. Neuro: Cranial nerves intact Neck: Patient's neck is supple. He has palpable carotid pulses bilaterally without bruits on auscultation. There is no evidence of jugular venous distention. The thyroid is not enlarged. Lungs: Normal respiratory effort. Poor excursion overall with some expiratory wheezing noted. Cardiac: Heart demonstrates a rapid rate with occasional ectopy. Normal S1 and S2. No murmurs on examination. Pulses: The patient has palpable radial pulses bilaterally that are equal in intensity Extremities: There was no evidence of hypoperfusion. There is no cyanosis or clubbing. There is no edema. Skin: I did not appreciate any rashes on examination today. He does have multiple ecchymoses Results & Data Vital Signs (Past 12 Hours) Vital Signs Temp Pulse Pulse Resp BP BP BP 12/30/18 07:19 36.8 C 98 H 16 98/69 L 12/30/18 07:08 98 H 16 12/30/18 03:45 36.6 C 105 H 18 89/62 L 12/30/18 02:21 103 H 20 88/62 L 12/30/18 00:43 126 H 18 94/64 L 12/29/18 23:58 123 H 93/70 L 12/29/18 22:55 36.7 C 130 H 89/66 L 12/29/18 22:30 123 H 18 93/68 L Pulse Ox 12/30/18 07:19 100 12/30/18 07:08 97 12/30/18 03:45 98 12/30/18 02:21 95 12/30/18 00:43 12/29/18 23:58 12/29/18 22:55 95 12/29/18 22:30 96 Laboratory Results Abnormal Lab Results 12/29/18 12/29/18 12/29/18 19:47 19:47 19:47 WBC 36.13 H* RBC 4.10 L Hgb 14.5 Hct 39.6 L MCV 96.6 MCH 35.4 H MCHC 36.6 H RDW Std Deviation 45.8 RDW Coeff of Jm 13.0 Plt Count 405 H MPV 9.3 Immature Gran % (Auto) 1.0 Neut % (Auto) 89.5 Lymph % (Auto) 3.0 [place] % (Auto) 6.4 Eos % (Auto) 0.0 Baso % (Auto) 0.1 Immature Gran # (Auto) 0.36 H Neut # (Auto) 32.35 H Lymph # (Auto) 1.08 L [place] # (Auto) 2.30 H Eos # (Auto) 0.01 Baso # (Auto) 0.03 Echinocytes 1+ PT 12.0 INR 1.2 H APTT 28.9 PTT Ratio 1.1 Sodium 128 L Potassium 3.3 L Chloride 92 L Carbon Dioxide 24 Anion Gap 12.0 H BUN 15 Creatinine 0.80 Est Cr Clr Drug Dosing 54.3 Est GFR ( Amer) 114.9 Est GFR (Non-Af Amer) 99.2 BUN/Creatinine Ratio 18.2 Glucose 134 H Calcium 9.7 Magnesium Total Bilirubin 0.5 AST 53 H ALT 23 Alkaline Phosphatase 102 Troponin I 0.284 H* Total Protein 6.9 Albumin 2.5 L Globulin 4.4 H Albumin/Globulin Ratio 0.6 L Folate Urine Color Urine Appearance Urine pH Ur Specific [place] Urine Protein Urine Glucose (UA) Urine Ketones Urine Blood Urine Nitrite Urine Bilirubin Urine Urobilinogen Ur Leukocyte Esterase 12/30/18 12/30/18 12/30/18 03:41 03:41 03:55 WBC RBC Hgb Hct MCV MCH MCHC RDW Std Deviation RDW Coeff of Jm Plt Count MPV Immature Gran % (Auto) Neut % (Auto) Lymph % (Auto) [place] % (Auto) Eos % (Auto) Baso % (Auto) Immature Gran # (Auto) Neut # (Auto) Lymph # (Auto) [place] # (Auto) Eos # (Auto) Baso # (Auto) Echinocytes PT INR APTT PTT Ratio Sodium 133 L Potassium 3.4 L Chloride 103 Carbon Dioxide 23 Anion Gap 7.0 BUN 13 Creatinine 0.47 L D Est Cr Clr Drug Dosing 107.2 Est GFR ( Amer) 143.0 Est GFR (Non-Af Amer) 123.4 BUN/Creatinine Ratio 27.2 H Glucose 171 H Calcium 7.9 L D Magnesium 2.1 Total Bilirubin 0.3 AST 30 ALT 17 Alkaline Phosphatase 59 Troponin I 0.472 H* Total Protein 5.1 L D Albumin 2.2 L Globulin 2.9 Albumin/Globulin Ratio 0.8 L Folate 17.15 Urine Color Yellow Urine Appearance Clear Urine pH 6.0 Ur Specific [place] 1.017 Urine Protein Negative Urine Glucose (UA) Negative Urine Ketones Negative Urine Blood Negative Urine Nitrite Negative Urine Bilirubin Negative Urine Urobilinogen Negative Ur Leukocyte Esterase Negative Diagnostic Findings Chest x-ray at the time of admission revealed a right upper lobe consolidation Echocardiogram performed today reveals reduced LV systolic function with apical wall motion abnormality. Dilated and poorly functioning right ventricle. Mildly elevated pulmonary pressures. ECG Additional Comments: EKGs demonstrate sinus rhythm with occasional PACs. Nonspecific ST and T-wave changes. PG Care Time/CCT Total # of Minutes Spent Total Time Spent with Patient: Total time spent is greater than 50% in coordination of care (as documented) at patient's floor/unit and/or counseling patient:
[2018-12-30 10:14] LABS: Partial Thromboplastin Ratio 1.2
[2018-12-30] MEDS ORDERED: ALBUT/IPRATROP 3MG/0.5MG NEB 3 ML VIAL NEB PRN (13:58)
[2018-12-30] MEDS: LORazepam 1 MG TAB PO PRN ×2 (14:12→19:57)
--- NOTE | 2018-12-30 15:27 | Hospitalist Progress Note ---
Date of Service December 30, 2018 Assessment & Plan (1) Pneumonia involving right lung: CXR on 12/29 showed RUL pneumonia. - Continue levofloxacin (would broaden to include Gram(-) and anaerobes if he doesn't improve in case he had aspiration while intoxicated) - Switched IV steroids to PO for severe pneumonia/COPD exacerbation - DuoNebs PRN - Sputum Gram stain and culture if he can produce one - Guaifenesin extended release 600 mg p.o. twice daily. (2) Cardiomyopathy: Echo was done on 12/30 for concern for afib (see below). EF is 30-35% with regional wall motion abnormalities. RV is severely dilated. - Concern for alcoholic cardiomyopathy vs. ischemic. - Will work with cardiology to start beta-henna and possibly ACEi if BP supports it. - Will benefit from cath to look for ischemic disease. (3) Sepsis: Sepsis due to pneumonia growing right upper lobe. - Plan as above. (4) Sinus tachycardia: Initially thought to be in afib with RVR per EKG auto-read; however, he has only been in sinus tachycardia with rates in the 100-120 range. - Stopped heparin gtt - On IV fluids - Treating pneumonia - Monitor HR (5) Non-ST elevation PR (NSTEMI): NSTEMI/secondary to rapid heart rate. Trended troponins and EKGs. Troponin peaked at 0.5. EKGs had no urgent ischemic changes despite the tachycardia. - Cardiology following - Could benefit from eventual cath, though not urgent. (6) COPD exacerbation: Possibly mild COPD exacerbation with increased shortness of breath. - See above (7) Hypotension: Multifactorial, associated with hypoalbuminemia, cachexia. - Give albumin 25 g IV x2, and place on NSS plus KCl 20 mEq 100 mils per hour. - Monitor (8) Alcohol abuse: Patient drinks approx. 75 beers/wk. (~8-12/day). Per prior notes, had mild withdrawal during last admission. Patient has no interest in quitting and declined any further discussion on his drinking. - Continue ENEDELIA protocol - Vitamin supplements. (9) Current every day smoker: Cessation counseling. (10) DVT prophylaxis: Subjective Much improved shortness of breath this morning. No real cough. No mucus production. No chest pain, palpitations, or other symptoms from his fast heart rate. Review of Systems Review of Systems: All systems reviewed & are unremarkable except as noted in HPI & below Physical Exam Constitutional: WD/WN, vitals as above Eyes: EOM intact bilaterally; no conjunctival abnormality ENMT: external ear and nose normal, oropharynx normal Neck: trachea midline, no thyromegaly normal visual inspection Respiratory: normal respiratory effort, lungs clear to auscultation no respiratory distress Cardiovascular: Rate/Rhythm: regular rhythm and + tachycardic Heart Sounds: normal S1 and normal S2 Vessels: no JVD Extremities: no edema Gastrointestinal (Abdomen): Inspection/Auscultation: abdomen normal to inspection; abdomen not distended Musculoskeletal: no cyanosis or clubbing, extremities motor strength 5/5 Skin: no rashes, warm and dry Neurologic: moves all extremities and awake Psychiatric: Orientation: alert, oriented to person and cooperative Results & Data Vital Signs (Past 12 Hours) Vital Signs Temp Pulse Resp BP Pulse Ox 12/30/18 14:55 36.6 C 114 H 18 99/76 L 96 12/30/18 13:58 118 H 24 96 12/30/18 11:56 36.4 C L 113 H 18 118/88 93 12/30/18 07:19 36.8 C 98 H 16 98/69 L 100 12/30/18 07:08 98 H 16 97 12/30/18 03:45 36.6 C 105 H 18 89/62 L 98 PG Care Time/CCT Total # of Minutes Spent Total Time Spent with Patient: Total time spent is greater than 50% in coordination of care (as documented) at patient's floor/unit and/or counseling patient: (1) Sepsis Sepsis acute organ dysfunction status: unspecified Sepsis type: sepsis due to unspecified organism Qualified Code(s): A41.9 - Sepsis, unspecified organism
[2018-12-30] MEDS: ACETAMINOPHEN 325 MG TAB PO PRN (19:57)
[2018-12-30] MEDS ORDERED: levoFLOXacin 750 MG TAB PO SCH (20:00)
[2018-12-30] MEDS: METOPROLOL TARTRATE 1 MG/ML VIAL IV PRN (21:05)
[2018-12-30] MEDS ORDERED: ALBUT/IPRATROP 3MG/0.5MG NEB 3 ML VIAL NEB STA (21:59)
[2018-12-31] MEDS: METOPROLOL TARTRATE 1 MG/ML VIAL IV PRN ×3 (04:30→18:42)
[2018-12-31 06:03] LABS: Hematocrit (blood only) 34.8 % (42-52); Mean Corpuscular Hgb Conc 34.5 g/dL (32-36); Mean Corpuscular Volume 98.6 fL (80-100); Mean Platelet Volume 9.3 fL (7.4-10.4); Nucleated RBC # (auto) 0.02 K/uL (0-0); Nucleated RBC % (auto) 0.1 %; Platelet Count 402 K/uL (130-400); RDW Coefficient of Variation 13.4 % (11.5-14.5); RDW Standard Deviation 47.9 fL (36.4-46.3); Red Blood Count 3.53 M/uL (4.7-6.1); White Blood Count 33.04 K/uL (4.8-10.8)
[2018-12-31] MEDS: NSS + 20MEQ KCL 20 MEQ/1,000 ML BAG IV SCH (06:13)
[2018-12-31 06:45] LABS: Alanine Aminotransferase 23 U/L (12-78); Albumin Globulin Ratio 0.6 (0.9-2); Alkaline Phosphatase 80 U/L (45-117); Aspartate Aminotransferase 34 U/L (15-37); BUN Creatinine Ratio 24.1 (10-20); Bilirubin,Total 0.3 mg/dl (0.2-1); Blood Urea Nitrogen 10 mg/dl (7-18); Calcium 8.8 mg/dl (8.5-10.1); Carbon Dioxide 21 mmol/L (21-32); Chloride 107 mmol/L (98-107); Creatinine Clr Calc Pharmacy 122.9 ml/min; Est GFR (African American) > 150.0; Est GFR (Non-African American) 130.5; Globulin 3.4 gm/dl (2.5-4.0); Glucose 123 mg/dl (70-99); Magnesium 2.1 mg/dl (1.8-2.4); Potassium 4.5 mmol/L (3.5-5.1); Sodium 134 mmol/L (136-145); Total Protein 5.4 gm/dl (6.4-8.2)
[2018-12-31] MEDS: guaiFENesin 600 MG TABCR PO SCH ×2 (08:00→19:59)
[2018-12-31] MEDS: LORazepam 1 MG TAB PO PRN ×2 (08:00→20:34)
[2018-12-31] MEDS: FOLIC ACID 1 MG TAB PO SCH (08:01)
--- NOTE | 2018-12-31 08:57 | XRay Report ---
XR chest 1V portable CLINICAL HISTORY: 58 years-old Male presenting with Shortness of breath with prior pneumonia. TECHNIQUE: Portable upright AP view of the chest was obtained. COMPARISON: 12/29/2018. FINDINGS: Atherosclerosis of the aortic arch. Cardiac silhouette top normal in size. Lungs are hyperinflated. I nterval increase and now dense right mid upper lung opacity. Significantly increased opacity in the r ight lower lung. Suspected small right pleural effusion. Heterogeneous lung parenchyma. Left lung and pleural space grossly clear. Osseous structures normal. Upper abdomen normal. IMPRESSION: 1. Significant interval worsening of now diffuse right lung infiltrates with dense right upper lung consolidation on a background of emphysema. 2. Suspected small right parapneumonic effusion. Electronically signed by: Cameron Romero M.D. 12/31/2018 8:54 AM
[2018-12-31] MEDS ORDERED: THIAMINE HCL 100 MG TAB PO SCH (09:00)
[2018-12-31] MEDS ORDERED: predniSONE 20 MG TAB PO SCH (09:00)
[2018-12-31 09:42] LABS: Base Excess ABG -5.9 mEq/L (-9-1.8); HCO3 ABG 19 mmol/L (19-24); Oxygen Saturation ABG 93.7 % (90-95); PCO2 ABG 34 mmHg (35-46); PO2 ABG 71 mm/Hg (80-95); pH ABG 7.36 (7.35-7.45)
[2018-12-31 09:48] LABS: Allen Test Pos (Pos)
[2018-12-31] MEDS: ALBUT/IPRATROP 3MG/0.5MG NEB 3 ML VIAL NEB SCH ×4 (11:14→23:58)
[2018-12-31] MEDS: cefTRIAXone SODIUM 1,000 MG in DEXTROSE 5% 50 ML IV SCH (11:17)
--- NOTE | 2018-12-31 11:23 | Critical Care Consultation ---
Date of Consultation December 31, 2018 Assessment & Plan (1) Acute hypoxemic respiratory failure: Impression: 58-year-old male with COPD of unknown severity and ongoing tobacco abuse admitted with community acquired pneumonia. His white count remains elevated and respiratory status remains tenuous but he currently appears to be suffering from alcohol withdrawal in the setting of a cardiomyopathy. Recommendations: 1. Acute hypoxemic respiratory failure. Continue supplemental oxygen for now. Wean oxygen as tolerated. Patient certainly may progress to need for intubation mechanical ventilation but appears stable on nasal cannula currently. 2. Severe community acquired pneumonia: Antibiotics have been changed to Rocephin azithromycin which is reasonable for now. We will continue to follow and trend his white blood cell count. 3. COPD: Continue aggressive bronchodilators. We will transition bronchodilators to nebulized formulation given the patient's respiratory status. Trial of Spiriva may be beneficial if the patient can perform an inhaler technique. I think low-dose steroids may be beneficial as they have shown to be of benefit in patients with severe pneumonia as well as patients with obstructive lung disease. I will decrease the dose. 4. Cardiomyopathy: Suspect alcohol related although ischemia is not been excluded. Initiate cardiology consultation. Will try and keep volume status on the dry side. 5. Probable peripheral vascular disease. Pulses are weakly palpable but capillary refill appears equal bilaterally. We will continue to follow and con automatic winder operator vascular surgery evaluation of the patient should his condition deteriorate although he is a poor candidate for any significant intervention currently. 5. Alcohol abuse with withdrawal: Continue judicious benzodiazepines and add low-dose Librium as needed. Should his condition deteriorate, initiation of Precedex may be appropriate. Continue high-dose thiamine. 6. Hyponatremia: Suspect related to chronic alcohol intake. Continue to follow for now. Avoid free water and hypotonic fluids. 7. Malnutrition with cachexia: Would benefit from nutritional consult once his respiratory status is stabilized. 8. (2) Cardiomyopathy: (3) Pneumonia involving right lung: (4) COPD exacerbation: (5) Alcohol withdrawal: (6) Hyponatremia: History of Present Illness Reason for Consultation: Hypoxemic respiratory failure, pneumonia, and possible alcohol withdrawal Attending Physician: Allen Marquez MD History of Present Illness History is obtained from discussion with the hospitalist as well as review the electronic medical record. The patient is delirious and unable to provide coherent history. The patient is a 58-year-old alcoholic male with a history of COPD. He was admitted 2 days ago with presumed community acquired pneumonia. He received Rocephin and levofloxacin in the emergency room. Levofloxacin was continued on the floor. He initially was felt to be improving yesterday however this morning was noted to be more unstable with increasing heart rate and increased oxygen requirement as well as altered mental status. He was transferred to the ICU. There was concern that he may require intubation or mechanical ventilation. He is currently saturating reasonably well on 4 L nasal cannula. During this hospitalization the patient has been diagnosed with a cardiomyopathy, potentially related to his alcohol consumption. He did receive fluid resuscitation approximately 2 L positive at this point time. His hemodynamics have been adequate. Blood gas did demonstrate a metabolic acido sis. The patient is receiving bronchodilators. He is a full code. Allergies Allergy/AdvReac Type Severity Reaction Status Date / Time erythromycin base Allergy Unknown Unknown Verified 12/29/18 21:10 Nitrate Analogues Allergy Unknown Difficulty Verified 12/29/18 21:10 Breathing Penicillins Allergy Unknown Unknown Verified 12/29/18 21:10 Home Medications Home Medications Medication Instructions Recorded Confirmed Type albuterol sulfate [Ventolin HFA] 1 - 2 puff INHALATION .Q4-6HRS PRN 12/29/18 12/29/18 History budesonide-formoterol [Symbicort] 2 puff INHALATION BID 12/29/18 12/29/18 History cetirizine 10 mg PO DAILY PRN 12/29/18 12/29/18 History Patient History Medical History GI bleed (Resolved) Pneumonia (Resolved) COPD (chronic obstructive pulmonary disease) (Chronic) Abdominal mass removed at [facility] - he cannot recall details; he was in 3rd grade Avascular necrosis of hip right Surgical History Hx of appendectomy Family History Father Hairy cell leukemia Mother Multiple myeloma Social History Preferred Language: Palestinian Communication Ability: Effective Beliefs That Will Affect Care: None marital status: Single marital status details: no children Current Living Situation: Alone Current Living Situation Comment: lives in [place] by himself current occupational status: disabled Other Information That Helps Us Care for You: No other: 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 Prolonged expiratory phase with some wheezing. Cardiovascular: Tacky S1-S2. Appears to be sinus on the monitor. Gastrointestinal (Abdomen): normal bowel sounds, soft, nontender, no hepatosplenomegaly Skin: Bilateral lower extremities are cool to the touch with delayed capillary refill. Pulses are dopplerable on the right but not so on the left. Popliteal pulse is palpable on the left Results & Data Vital Signs (Past 12 Hours) Vital Signs Temp Pulse Pulse Resp BP BP Pulse Ox 12/31/18 08:00 36.3 C L 112 H 24 111/88 90 12/31/18 04:30 120 H 127/88 12/31/18 03:33 36.5 C 111 H 16 101/86 93 12/31/18 00:21 119 H Laboratory Results 12/31/18 05:22 12/31/18 05:22 Cultures no growth to date. Procalcitonin elevated at 1.71. BNP elevated at 20,000 Troponin elevated at 0.28, peaking at 0.47 Diagnostic Findings Chest x-rays independently reviewed. XR chest 1V portable CLINICAL HISTORY: 58 years-old Male presenting with Shortness of breath with pastor or pneumonia. TECHNIQUE: Portable upright AP view of the chest was obtained. COMPARISON: 12/29/2018. FINDINGS: Atherosclerosis of the aortic arch. Cardiac silhouette top normal in size. Lungs are hyperinflated. Interval increase and now dense right mid upper lung opacity. Significantly increased opacity in the right lower lung. Suspected small right pleural effusion. Heterogeneous lung parenchyma. Left lung and pleural space grossly clear. Osseous structures normal. Upper abdomen normal. IMPRESSION: 1. Significant interval worsening of now diffuse right lung infiltrates with dense right upper lung consolidation on a background of emphysema. 2. Suspected small right parapneumonic effusion. PG Care Time/CCT Total # of Minutes Spent Total Time Spent with Patient: Total time spent is greater than 50% in coordination of care (as documented) at patient's floor/unit and/or counseling patient: 45 minutes critical care time evaluating managing patient including discussion with hospitalist, patient, and bedside ICU nurse (1) Alcohol withdrawal Complication of substance-induced condition: uncomplicated Qualified Code(s): F10.230 - Alcohol dependence with withdrawal, uncomplicated
[2018-12-31] MEDS: THIAMINE HCL 100 MG in SYRINGE 9 ML IV SCH ×2 (11:54→19:59)
[2018-12-31] MEDS: HYDROCORTISONE SOD 50 MG in SYRINGE 0 ML IV SCH ×3 (12:03→23:31)
[2018-12-31] MEDS: AZITHROMYCIN 500 MG in DEXTROSE 5% 250 ML IV SCH (12:03)
[2018-12-31] MEDS: TIOTROPIUM BROMIDE 5 PUFF/90 MCG INH INH SCH (12:54)
--- NOTE | 2018-12-31 13:24 | Hospitalist Progress Note ---
Date of Service December 31, 2018 Assessment & Plan (1) Pneumonia involving right lung: CXR on 12/29 showed RUL pneumonia. - Initially improved on ceftriaxone & levofloxacin. Simplified to levofloxacin on 12/30, but he worsened with increased work of breathing and WBC, so he was switched to ceftriaxone and azithromycin on 12/31 per pulm/CC team. - Switched to IV steroids on 12/31 for worsening breathing - DuoNebs PRN - Sputum Gram stain and culture if he can produce one - Guaifenesin extended release 600 mg p.o. twice daily. (2) Alcohol withdrawal: On 12/31, began to have more significant alcohol withdrawal. - Started on Librium & more judicious Ativan PRN - Continue ENEDELIA scale (3) Cardiomyopathy: Echo was done on 12/30 for concern for afib (see below). EF is 30-35% with regional wall motion abnormalities. RV is severely dilated. - Concern for alcoholic cardiomyopathy vs. ischemic. - Will work with cardiology to start beta-henna and possibly ACEi if BP supports it. - Will benefit from cath to look for ischemic disease. (4) Sepsis: Sepsis due to pneumonia growing right upper lobe. - Plan as above. (5) Sinus tachycardia: Initially thought to be in afib with RVR per EKG auto-read; however, he has only been in sinus tachycardia with rates in the 100-120 range. - Stopped heparin gtt - Treating pneumonia - Monitor HR (6) Non-ST elevation [place] (NSTEMI): NSTEMI/secondary to rapid heart rate. Trended troponins and EKGs. Troponin peaked at 0.5. EKGs had no urgent ischemic changes despite the tachycardia. - Cardiology following - Could benefit from eventual cath, though not urgent. (7) COPD exacerbation: Possibly mild COPD exacerbation with increased shortness of breath. - See above (8) Hypotension: Multifactorial, associated with hypoalbuminemia, cachexia. - Given albumin 25 g IV x2, and place on NSS plus KCl 20 mEq 100 mils per hour. - By 12/31, BP was more stable at 110/90. - Holding IV fluids for cardiomyopathy (9) Alcohol abuse: Patient drinks approx. 75 beers/wk. (~8-12/day). Per prior notes, had mild withdrawal during last admission. Patient has no interest in quitting and declined any further discussion on his drinking. - Continue ENEDELIA protocol as above - Vitamin supplements. (10) Current every day smoker: Cessation counseling. (11) DVT prophylaxis: Lovenox 40mg Subjective Reports he feels more shortness of breath this morning than yesterday. Reports he feels "rougher." Review of Systems Review of Systems: All systems reviewed & are unremarkable except as noted in HPI & below Physical Exam Constitutional: WD/WN, vitals as above + acute distress Eyes: EOM intact bilaterally; no conjunctival abnormality ENMT: external ear and nose normal, oropharynx normal Neck: trachea midline, no thyromegaly normal visual inspection Respiratory: + respiratory distress, + labored breathing and + uses accessory muscles Auscultation: + diminished lung sounds and + wheezes (Mild) Cardiovascular: Rate/Rhythm: regular rhythm and + tachycardic Heart Sounds: normal S1 and normal S2 Vessels: no JVD Extremities: no edema Gastrointestinal (Abdomen): Inspection/Auscultation: abdomen normal to inspection; abdomen not distended Musculoskeletal: no cyanosis or clubbing, extremities motor strength 5/5 Skin: no rashes, warm and dry Neurologic: moves all extremities and awake Psychiatric: Orientation: alert, oriented to person and cooperative Results & Data Vital Signs (Past 12 Hours) Vital Signs Temp Pulse Pulse Resp BP BP Pulse Ox 12/31/18 12:55 120 H 12/31/18 11:22 116 H 18 94 12/31/18 08:00 36.3 C L 112 H 24 111/88 90 12/31/18 04:30 120 H 127/88 12/31/18 03:33 36.5 C 111 H 16 101/86 93 PG Care Time/CCT Total # of Minutes Spent Total Time Spent with Patient: Total time spent is greater than 50% in coordination of care (as documented) at patient's floor/unit and/or counseling patient: (1) Sepsis Sepsis acute organ dysfunction status: unspecified Sepsis type: sepsis due to unspecified organism Qualified Code(s): A41.9 - Sepsis, unspecified organism (2) Alcohol withdrawal Complication of substance-induced condition: uncomplicated Qualified Code(s): F10.230 - Alcohol dependence with withdrawal, uncomplicated
--- NOTE | 2018-12-31 15:47 | Cardiology Progress Note ---
Date of Service December 31, 2018 Assessment & Plan (1) Sinus tachycardia: He continues to have a tachycardia times. Undoubtedly related to his critical illness. This is a combination both respiratory and cardiac failure. Possibly a contribution from alcohol withdrawal. (2) Cardiomyopathy: He has significant biventricular heart failure. Certainly complicates his treatment. He was aggressively hydrated during the initial part of his admission due to an element of hypotension and presumed sepsis. This likely promote right ventricular function but may be detrimental to left ventricular function. He does not appear to have significant pulmonary edema on exam. He has significant right lung abnormality but the left lung appears relatively normal. His N terminal proBNP is markedly elevated. I think we need to be very cautious with respect to fluid administration. If his pressure stays good and his pulmonary functions seems to deteriorate, we could attempt an empiric trial of diuresis. At some point during this hospitalization when his hemodynamics and clinical course have improved will attempt to initiate medical therapy with Donnie inhibition and beta-blockade. The etiology of his cardiomyopathy is unknown, but likely alcoholic. Possibly the contribution from ischemic heart disease. (3) Non-ST elevation [place] (NSTEMI): He continues to have mildly elevated cardiac biomarkers. Likely r eflection of both his critical illness and underlying cardiomyopathy. 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 I do not believe he requires anticoagulation. Subjective This 71 the patient did complain of a cough. Did not report significant breathing difficulty. Did not report much of an appetite. He denies dizziness or chest pain. Review of Systems Review of Systems: For HPI Physical Exam Physical Exam: The patient is alert and oriented. He did appeared to be in some mild respiratory distress. HEENT: Pupils are equal and reactive to light and accommodation. Extraocular movements are intact. The sclerae are anicteric. Neuro: Cranial nerves intact Lungs: Reduced breath sounds in the right upper and middle lobes. Reduced excursion overall. Some expiratory wheezing. Upper airway congestion noted. Cardiac: Tachycardic. Normal S1 and S2. No murmurs on examination. Pulses: The patient has palpable radial pulses bilaterally that are equal in intensity Extremities: There was no evidence of hypoperfusion. There is no cyanosis or clubbing. There is no edema. Skin: I did not appreciate any rashes on examination today. Results & Data Vital Signs (Past 12 Hours) Vital Signs Temp Pulse Pulse Resp BP BP Pulse Ox 12/31/18 15:38 99 H 18 95 12/31/18 14:23 108 H 20 110/73 91 12/31/18 14:01 102 H 37 H 88/64 L 93 12/31/18 14:00 36.5 C 103 H 29 H 93 12/31/18 13:02 99 H 30 H 12/31/18 13:00 108 H 29 H 12/31/18 12:55 120 H 12/31/18 12:00 36.5 C 120 H 32 H 100 12/31/18 11:22 116 H 18 94 12/31/18 11:00 122 H 38 H 131/90 86 L 12/31/18 10:14 36.4 C L 120 H 22 117/86 93 12/31/18 08:00 36.3 C L 112 H 24 111/88 90 12/31/18 04:30 120 H 127/88 Laboratory Results Abnormal Lab Results 12/31/18 12/31/18 12/31/18 05:22 05:22 09:20 WBC 33.04 H* D RBC 3.53 L Hgb 12.0 L Hct 34.8 L MCV 98.6 MCH 34.0 MCHC 34.5 RDW Std Deviation 47.9 H RDW Coeff of Jm 13.4 Plt Count 402 H MPV 9.3 Absolute Nucleated RBC 0.02 H Nucleated RBC % (auto) 0.1 ABG pH 7.36 ABG pCO2 34 L ABG pO2 71 L ABG HCO3 19 ABG O2 Saturation 93.7 ABG Base Excess -5.9 Zaid Test Pos Barometric Pressure 734.4 Oxygen Given 3 L Sodium 134 L Potassium 4.5 D Chloride 107 Carbon Dioxide 21 Anion Gap 6.0 BUN 10 Creatinine 0.41 L Est Cr Clr Drug Dosing 122.9 Est GFR ( Amer) > 150.0 Est GFR (Non-Af Amer) 130.5 BUN/Creatinine Ratio 24.1 H Glucose 123 H Calcium 8.8 Magnesium 2.1 Total Bilirubin 0.3 AST 34 ALT 23 Alkaline Phosphatase 80 NT-Pro-B Natriuret Pep Total Protein 5.4 L Albumin 2.0 L Globulin 3.4 Albumin/Globulin Ratio 0.6 L Procalcitonin 12/31/18 12/31/18 09:43 09:43 WBC RBC Hgb Hct MCV MCH MCHC RDW Std Deviation RDW Coeff of Jm Plt Count MPV Absolute Nucleated RBC Nucleated RBC % (auto) ABG pH ABG pCO2 ABG pO2 ABG HCO3 ABG O2 Saturation ABG Base Excess Zaid Test Barometric Pressure Oxygen Given Sodium Potassium Chloride Carbon Dioxide Anion Gap BUN Creatinine Est Cr Clr Drug Dosing Est GFR ( Amer) Est GFR (Non-Af Amer) BUN/Creatinine Ratio Glucose Calcium Magnesium Total Bilirubin AST ALT Alkaline Phosphatase NT-Pro-B Natriuret Pep 48189 H Total Protein Albumin Globulin Albumin/Globulin Ratio Procalcitonin 1.71 H Diagnostic Findings Repeat chest x-ray today noted worsening right lung infiltrates. ECG Additional Comments: Monitor demonstrated sinus tachycardia PG Care Time/CCT Total # of Minutes Spent Total Time Spent with Patient: Total time spent is greater than 50% in coordination of care (as documented) at patient's floor/unit and/or counseling patient:
[2018-12-31] MEDS: BUDESONIDE 0.5 MG/2 ML VIAL (PULMICORT) NEB SCH (19:21)
[2018-12-31] MEDS: FORMOTEROL 20 MCG/2 ML VIAL NEB SCH (19:21)
[2018-12-31] MEDS ORDERED: LORazepam 1 MG/2 ML VIAL IV PRN (20:29)
[2018-12-31] MEDS ORDERED: LORazepam 3 MG/6 ML VIAL IV PRN (20:29)
[2018-12-31] MEDS ORDERED: LORazepam 2 MG/4 ML VIAL IV PRN (20:29)
[2018-12-31] MEDS ORDERED: ATIVAN IV ALCOHOL WITHDRAWL IV SCH (20:30)
[2019-01-01] MEDS: LORazepam 1 MG TAB PO PRN ×2 (00:31→11:32)
[2019-01-01] MEDS: METOPROLOL TARTRATE 1 MG/ML VIAL IV PRN (01:04)
[2019-01-01] MEDS: ALBUT/IPRATROP 3MG/0.5MG NEB 3 ML VIAL NEB SCH ×2 (04:10→07:13)
[2019-01-01 04:41] LABS: Hemoglobin 11.8 g/dL (14.0-18.0); Mean Corpuscular Hemoglobin 33.9 pg (25-34); Mean Corpuscular Hgb Conc 34.7 g/dL (32-36); Mean Corpuscular Volume 97.7 fL (80-100); Mean Platelet Volume 9.6 fL (7.4-10.4); Platelet Count 362 K/uL (130-400); RDW Coefficient of Variation 13.5 % (11.5-14.5); RDW Standard Deviation 48.2 fL (36.4-46.3); Red Blood Count 3.48 M/uL (4.7-6.1); White Blood Count 29.03 K/uL (4.8-10.8)
[2019-01-01 05:11] LABS: Basophils # (auto) 0.02 K/uL (0-0.2); Basophils % (auto) 0.1 %; Echinocytes 2+; Immature Granulocytes # (auto) 0.27 K/uL (0.00-0.02); Immature Granulocytes % (auto) 0.9 %; Lymphocytes # (auto) 0.54 K/uL (1.2-3.4); Lymphocytes % (auto) 1.9 %; Monocytes # (auto) 1.62 K/uL (0.11-0.59); Monocytes % (auto) 5.6 %; Neutrophils # (auto) 26.58 K/uL (1.4-6.5); Neutrophils % (auto) 91.5 %; Schistocytes 1+; Toxic Vacuolation 1+
[2019-01-01 05:16] LABS: Alanine Aminotransferase 26 U/L (12-78); Albumin Level 1.8 gm/dl (3.4-5.0); Aspartate Aminotransferase 33 U/L (15-37); BUN Creatinine Ratio 27.5 (10-20); Bilirubin Direct < 0.1 mg/dl (0-0.2); Blood Urea Nitrogen 12 mg/dl (7-18); Calcium 8.7 mg/dl (8.5-10.1); Carbon Dioxide 24 mmol/L (21-32); Chloride 104 mmol/L (98-107); Creatinine Clr Calc Pharmacy 116.6 ml/min; Est GFR (Non-African American) 126.8; Glucose 110 mg/dl (70-99); Magnesium 2.2 mg/dl (1.8-2.4); Potassium 4.7 mmol/L (3.5-5.1); Sodium 135 mmol/L (136-145)
[2019-01-01 05:18] LABS: Albumin Globulin Ratio 0.5 (0.9-2); Alkaline Phosphatase 75 U/L (45-117); Bilirubin,Total 0.2 mg/dl (0.2-1); Globulin 3.4 gm/dl (2.5-4.0); Total Protein 5.2 gm/dl (6.4-8.2)
[2019-01-01] MEDS: HYDROCORTISONE SOD 50 MG in SYRINGE 0 ML IV SCH ×3 (05:55→17:11)
--- NOTE | 2019-01-01 07:09 | XRay Report ---
XR chest 1V portable CLINICAL HISTORY: Shortness of breath. Pneumonia. COMPARISON STUDY: 12/31/2018 FINDINGS: The cardiac and mediastinal contours remain stable. There are persistent right lung airspac e opacities with slight progression involving the right lower lung zone. There is a small right pleur al effusion. The left lung remains clear.[ IMPRESSION: 1. Emphysema. 2. Slight progression in the extensive right lung airspace opacities Electronically signed by: Sung Moses M.D. 01/01/2019 7:07 AM
[2019-01-01] MEDS: BUDESONIDE 0.5 MG/2 ML VIAL (PULMICORT) NEB SCH ×2 (07:13→19:43)
[2019-01-01] MEDS: FORMOTEROL 20 MCG/2 ML VIAL NEB SCH ×2 (07:13→19:43)
[2019-01-01] MEDS: THIAMINE HCL 100 MG in SYRINGE 9 ML IV SCH (07:50)
[2019-01-01] MEDS: ENOXAPARIN INJ 30 MG/0.3 ML SYR SQ SCH (07:51)
[2019-01-01] MEDS: guaiFENesin 600 MG TABCR PO SCH ×2 (07:51→20:37)
[2019-01-01] MEDS: FOLIC ACID 1 MG TAB PO SCH (07:52)
[2019-01-01] MEDS: TIOTROPIUM BROMIDE 5 PUFF/90 MCG INH INH SCH (07:52)
[2019-01-01] MEDS ORDERED: ENOXAPARIN INJ 40 MG/0.4 ML SYR SQ SCH (09:00)
[2019-01-01] MEDS: AZITHROMYCIN 500 MG in DEXTROSE 5% 250 ML IV SCH (09:59)
[2019-01-01] MEDS: cefTRIAXone SODIUM 1,000 MG in DEXTROSE 5% 50 ML IV SCH (11:13)
[2019-01-01] MEDS ORDERED: ALBUT/IPRATROP 3MG/0.5MG NEB 3 ML VIAL NEB SCH (12:00)
--- NOTE | 2019-01-01 12:06 | Intensivist Progress Note ---
Date of Service January 01, 2019 Assessment & Plan (1) Acute hypoxemic respiratory failure: Impression: 58-year-old male with history of COPD and alcohol abuse admitted with pneumonia on COPD, transferred to ICU for management of worsening withdrawal in the setting of cardiomyopathy. Recommendations: 1. Acute hypoxemic respiratory failure. Patient remains stable on nasal cannula overnight. We will continue 2. Severe community acquired pneumonia: Continue Rocephin azithromycin -Trend WBC with routine CBCs 3. COPD: Continue aggressive bronchodilators. We will transition bronchodilators to nebulized formulation given the patient's respiratory status. Trial of Spiriva may be beneficial if the patient can perform an inhaler technique. I think low-dose steroids may be beneficial as they have shown to be of benefit in patients with severe pneumonia as well as patients with ob structive lung disease. I will decrease the dose. 4. Cardiomyopathy: Alcohol related versus ischemic etiology, cardiology consulted -Avoid hypervolemia 5. Probable PVDpulses remain weak, however patient continues to have added perfusion. Monitor 5. Alcohol abuse with withdrawal: Currently being controlled with benzos alone, may add low-dose Librium as needed. Has not required Precedex. Continue high- dose thiamine. 6. Hyponatremia: Suspect related to chronic alcohol intake. Continue to follow for now. Avoid free water and hypotonic fluids. 7. Malnutrition with cachexia: Would recommend consulting nutrition once patient neurological status has improved Thank you for allowing us to participate in the care of this patient. Please refer to my attending physician's documentation for any further recommendations. (2) Cardiomyopathy: (3) Pneumonia involving right lung: (4) COPD exacerbation: (5) Alcohol withdrawal: (6) Hyponatremia: Supervising Physician Co-Signing Physician Notes Seen and examined. EMR and imaging reviewed. Agree with A/P as noted by the WILBERT. Improved pulm status. Needs more aggressive pulmonary toilet, IS, flutter and CPT. Etoh withdrawl better. continue BZD. If remains stable overnight, can likely return to floor in AM. Subjective 58-year-old male with admitted to ICU for worsening symptoms of alcohol withdrawal in the setting of pneumonia on COPD. He remains confused this a.m. but withdrawal symptoms have significantly improved. Patient on 2 L nasal cannula and hemodynamically stable. Although mildly confused, he remains calm and cooperative and can transfer out of ICU at this time. Review of Systems Review of Systems: All systems reviewed & are unremarkable except as noted in HPI & below Physical Exam Eyes: PERRL, conjunctivae normal, anicteric sclerae ENMT: external ear and nose normal, oropharynx normal Neck: trachea midline, no thyromegaly Respiratory: normal respiratory effort, lungs clear to auscultation Cardiovascular: RRR, no murmur, no edema Heart Sounds: normal S1 and normal S2 Gastrointestinal (Abdomen): normal bowel sounds, soft, nontender, no hepatosplenomegaly Musculoskeletal: no cyanosis or clubbing, extremities motor strength 5/5 Skin: no rashes, warm and dry Psychiatric: Orientation: oriented to person; + not oriented to place and + not oriented to time Eye Contact: + poor eye contact Results & Data Vital Signs (Past 12 Hours) Vital Signs Temp Pulse Pulse Resp BP Pulse Ox 01/01/19 07:16 113 H 20 96 01/01/19 05:30 36.6 C 106 H 29 H 96 01/01/19 05:00 102 H 30 H 91/66 L 96 01/01/19 04:30 104 H 18 96 01/01/19 04:23 102 H 24 95 01/01/19 04:00 98 H 31 H 96/71 L 96 01/01/19 03:30 98 H 30 H 95 01/01/19 03:00 99 H 36 H 96/73 L 96 01/01/19 02:30 97 H 32 H 93 01/01/19 02:00 99 H 33 H 100/78 92 01/01/19 01:30 93 H 29 H 95 01/01/19 01:04 113 H 112/85 01/01/19 01:00 114 H 28 H 112/85 93 01/01/19 00:30 112 H 22 94 Critical Care Time Critical Care Time: No PG Care Time/CCT Total # of Minutes Spent Total Time Spent: 25 Total Time Spent with Patient: Total time spent is greater than 50% in coordination of care (as documented) at patient's floor/unit and/or counseling patient: Critical Care Time: No (1) Alcohol withdrawal Complication of substance-induced condition: uncomplicated Qualified Code(s): F10.230 - Alcohol dependence with withdrawal, uncomplicated
--- NOTE | 2019-01-01 18:09 | Cardiology Progress Note ---
Date of Service January 01, 2019 Assessment & Plan (1) Sinus tachycardia: He continues to have a tachycardia times. Perhaps improve slightly today. Undoubtedly related to his critical illness. This is a combination both respiratory and cardiac failure. Possibly a contribution from alcohol withdrawal. (2) Cardiomyopathy: Volume status appears to be stable. Oxygenation appears slightly improved. Overall stable. In the setting of worsening oxygenation consideration could be given to an attempted diuresis. As his condition improves will likely attempt to add standard medical therapy for newly diagnosed cardiomyopathy. (3) Non-ST elevation [place] (NSTEMI): He continues to have mildly elevated cardiac biomarkers. Likely reflection of both his critical illness and underlying cardiomyopathy. This is not inside account representative of an acute coronary syndrome. I do not believe he requires anticoagulation. Subjective He was somewhat drowsy during today's interview but did voice some appetite. He denied pain at any location. He stated his breathing was comfortable. Review of Systems Review of Systems: Unobtainable due to cognitive status Physical Exam Physical Exam: Drowsy, but arousable. Answers all questions appropriately. HEENT: Pupils are equal and reactive to light and accommodation. Extraocular movements are intact. The sclerae are anicteric. Neuro: Cranial nerves intact Lungs: He has coarse upper airway sounds reduced breath sounds in the left upper and mid lung. Some expiratory wheezing. Poor air movement overall. Cardiac: Tachycardic. Normal S1 and S2. No murmurs on examination. Pulses: The patient has palpable radial pulses bilaterally that are equal in intensity Extremities: There was no evidence of hypoperfusion. There is no cyanosis or clubbing. There is no edema. Skin: Significant bruise in the right forearm Results & Data Vital Signs (Past 12 Hours) Vital Signs Temp Pulse Pulse Resp BP Pulse Ox 01/01/19 16:00 115 H 01/01/19 12:00 36.5 C 115 H 24 98/75 L 92 01/01/19 11:00 113 H 19 103/83 94 01/01/19 10:00 110 H 28 H 101/76 96 01/01/19 09:00 108 H 31 H 91/65 L 90 01/01/19 08:00 36.9 C 115 H 30 H 109/88 93 01/01/19 07:16 113 H 20 96 01/01/19 07:00 110 H 34 H 105/78 94 Laboratory Results Abnormal Lab Results 12/31/18 12/31/18 01/01/19 16:56 23:34 04:32 WBC RBC Hgb Hct MCV MCH MCHC RDW Std Deviation RDW Coeff of Jm Plt Count MPV Immature Gran % (Auto) Neut % (Auto) Lymph % (Auto) Hill % (Auto) Eos % (Auto) Baso % (Auto) Immature Gran # (Auto) Neut # (Auto) Lymph # (Auto) Hill # (Auto) Eos # (Auto) Baso # (Auto) Toxic Vacuolation Echinocytes Schistocytes Sodium 135 L Potassium 4.7 Chloride 104 Carbon Dioxide 24 Anion Gap 7.0 BUN 12 Creatinine 0.44 L Est Cr Clr Drug Dosing 116.6 Est GFR ( Amer) 147.0 Est GFR (Non-Af Amer) 126.8 BUN/Creatinine Ratio 27.5 H Glucose 110 H POC Glucose 129 H Calcium 8.7 Phosphorus 3.0 Magnesium 2.2 Total Bilirubin 0.2 Direct Bilirubin < 0.1 AST 33 ALT 26 Alkaline Phosphatase 75 Total Protein 5.2 L Albumin 1.8 L Globulin 3.4 Albumin/Globulin Ratio 0.5 L Procalcitonin Nasal Screen MRSA (PCR) Negative 01/01/19 01/01/19 01/01/19 04:32 04:32 06:15 WBC 29.03 H RBC 3.48 L Hgb 11.8 L Hct 34.0 L MCV 97.7 MCH 33.9 MCHC 34.7 RDW Std Deviation 48.2 H RDW Coeff of Jm 13.5 Plt Count 362 MPV 9.6 Immature Gran % (Auto) 0.9 Neut % (Auto) 91.5 Lymph % (Auto) 1.9 Hill % (Auto) 5.6 Eos % (Auto) 0.0 Baso % (Auto) 0.1 Immature Gran # (Auto) 0.27 H Neut # (Auto) 26.58 H Lymph # (Auto) 0.54 L Hill # (Auto) 1.62 H Eos # (Auto) 0.00 Baso # (Auto) 0.02 Toxic Vacuolation 1+ Echinocytes 2+ Schistocytes 1+ Sodium Potassium Chloride Carbon Dioxide Anion Gap BUN Creatinine Est Cr Clr Drug Dosing Est GFR ( Amer) Est GFR (Non-Af Amer) BUN/Creatinine Ratio Glucose POC Glucose 115 H Calcium Phosphorus Magnesium Total Bilirubin Direct Bilirubin AST ALT Alkaline Phosphatase Total Protein Albumin Globulin Albumin/Globulin Ratio Procalcitonin 1.26 H Nasal Screen MRSA (PCR) PG Care Time/CCT Total # of Minutes Spent Total Time Spent with Patient: Total time spent is greater than 50% in coordination of care (as documented) at patient's floor/unit and/or counseling patient:
[2019-01-01] MEDS: THIAMINE HCL 100 MG TAB PO SCH (20:37)
--- NOTE | 2019-01-01 22:25 | Hospitalist Progress Note ---
Date of Service January 01, 2019 Assessment & Plan (1) Pneumonia involving right lung: CXR on 12/29 showed RUL pneumonia. - Initially improved on ceftriaxone & levofloxacin. Simplified to levofloxacin on 12/30, but he worsened with increased work of breathing and WBC, so he was switched to ceftriaxone and azithromycin on 12/31 per pulm/CC team. - Switched to IV steroids on 12/31 for worsening breathing - DuoNebs PRN - Sputum Gram stain and culture if he can produce one - Guaifenesin extended release 600 mg p.o. twice daily -Plan initally was to transfer patient out of ICU, however patient is still having difficulty breathing. Will continue to monitor. (2) Alcohol withdrawal: On 12/31, began to have more significant alcohol withdrawal. - Started on Librium & more judicious Ativan PRN - Continue ENEDELIA scale -will continue on 01/01 (3) Cardiomyopathy: Echo was done on 12/30 for concern for afib (see below). EF is 30-35% with regional wall motion abnormalities. RV is severely dilated. - Concern for alcoholic cardiomyopathy vs. ischemic. - Will work with cardiology to start beta-henna and possibly ACEi if BP supports it. - Will benefit from cath to look for ischemic disease. -for now, will continue to hold. (4) Sepsis: Sepsis due to pneumonia growing right upper lobe. - Plan as above. (5) Sinus tachycardia: Initially thought to be in afib with RVR per EKG auto-read; however, he has only been in sinus tachycardia with rates in the 100-120 range. - Stopped heparin gtt - Treating pneumonia - Monitor HR (6) Non-ST elevation [place] (NSTEMI): It appears patient did not suffer a NSTEMI, but perhaps demand ischemia. (7) COPD exacerbation: Possibly mild COPD exacerbation with increased shortness of breath. - See above (8) Hypotension: Multifactorial, associated with hypoalbuminemia, cachexia. BP is improving will monitor. (9) Alcohol abuse: Patient drinks approx. 75 beers/wk. (~8-12/day). Per prior notes, had mild withdrawal during last admission. Patient has no interest in quitting and declined any further discussion on his drinking. - Continue ENEDELIA protocol as above - Vitamin supplements. (10) Current every day smoker: Cessation counseling. (11) DVT prophylaxis: Lovenox 40mg Spent 35 minutes in management of patient. (12) Severe protein-calorie malnutrition: Subjective Patient appears to be lethargic and tired. He does not provide significant history. Review of Systems Review of Systems: The patient denies palpitations, lower extremity swelling, sore throat, fevers, chills, sweats, nausea, vomiting, diarrhea , constipation, abdominal pain, pelvic pain, blood in urine or stool, dysuria, urinary frequency or urgency, lightheadedness, dizziness, headache, memory loss, loss of consciousness, rash, abnormal bruising or bleeding, imbalance, focal or generalized weakness, numbness or tingling in arms or legs, generalized arthralgias or myalgias, back or neck pain, or night sweats. The review of systems is otherwise negative other than for that already noted above, and at least 10 systems have been reviewed. Physical Exam Physical Exam: Constitutional: WD/WN, vitals as above + acute distress Eyes: EOM intact bilaterally; no conjunctival abnormality ENMT: external ear and nose normal, oropharynx normal Neck: trachea midline, no thyromegaly normal visual inspection Respiratory: decreased breath sounds and rhonchi Cardiovascular: Rate/Rhythm: regular rhythm and + tachycardic Heart Sounds: normal S1 and normal S2 Vessels: no JVD Extremities: no edema Gastrointestinal (Abdomen): Inspection/Auscultation: abdomen normal to inspection; abdomen not distended Musculoskeletal: no cyanosis or clubbing, extremities motor strength 5/5 Skin: no rashes, warm and dry Neurologic: moves all extremities and awake Psychiatric: Orientation: alert, oriented to person and cooperative Results & Data Vital Signs (Past 12 Hours) Vital Signs Temp Pulse Pulse Resp BP Pulse Ox 01/01/19 20:00 36.6 C 107 H 30 H 94/76 L 96 01/01/19 19:47 107 H 22 93 01/01/19 19:00 108 H 31 H 102/74 96 01/01/19 18:00 118 H 21 112/89 95 01/01/19 17:00 116 H 37 H 105/78 91 01/01/19 16:00 36.7 C 116 H 22 131/82 95 01/01/19 15:00 114 H 23 106/79 98 01/01/19 14:00 115 H 33 H 106/81 96 01/01/19 13:00 109 H 32 H 91/71 L 89 L 01/01/19 12:00 36.5 C 115 H 24 98/75 L 92 01/01/19 11:00 113 H 19 103/83 94 PG Care Time/CCT Total # of Minutes Spent Total Time Spent with Patient: Total time spent is greater than 50% in coordination of care (as documented) at patient's floor/unit and/or counseling patient: (1) Alcohol withdrawal Complication of substance-induced condition: uncomplicated Qualified Code(s): F10.230 - Alcohol dependence with withdrawal, uncomplicated (2) Sepsis Sepsis acute organ dysfunction status: unspecified Sepsis type: sepsis due to unspecified organism Qualified Code(s): A41.9 - Sepsis, unspecified organism
[2019-01-02] MEDS: HYDROCORTISONE SOD 50 MG in SYRINGE 0 ML IV SCH ×2 (00:12→05:54)
[2019-01-02 05:16] LABS: BUN Creatinine Ratio 33.5 (10-20); Blood Urea Nitrogen 12 mg/dl (7-18); Calcium 8.6 mg/dl (8.5-10.1); Carbon Dioxide 24 mmol/L (21-32); Chloride 105 mmol/L (98-107); Creatinine Clr Calc Pharmacy 163.7 ml/min; Est GFR (African American) > 150.0; Est GFR (Non-African American) 139.3; Glucose 107 mg/dl (70-99); Hematocrit (blood only) 35.9 % (42-52); Hemoglobin 12.7 g/dL (14.0-18.0); Magnesium 2.4 mg/dl (1.8-2.4); Mean Corpuscular Hemoglobin 34.5 pg (25-34); Mean Corpuscular Hgb Conc 35.4 g/dL (32-36); Mean Corpuscular Volume 97.6 fL (80-100); Mean Platelet Volume 9.2 fL (7.4-10.4); Platelet Count 446 K/uL (130-400); Potassium 4.4 mmol/L (3.5-5.1); RDW Coefficient of Variation 13.3 % (11.5-14.5); RDW Standard Deviation 47.2 fL (36.4-46.3); Red Blood Count 3.68 M/uL (4.7-6.1); Sodium 137 mmol/L (136-145); White Blood Count 31.32 K/uL (4.8-10.8)
[2019-01-02 05:20] LABS: Phosphorus 3.8 mg/dl (2.5-4.9)
[2019-01-02 05:30] LABS: Acanthocytes 1+; Basophils # (auto) 0.05 K/uL (0-0.2); Basophils % (auto) 0.2 %; Echinocytes 2+; Immature Granulocytes # (auto) 0.26 K/uL (0.00-0.02); Immature Granulocytes % (auto) 0.8 %; Lymphocytes # (auto) 0.67 K/uL (1.2-3.4); Lymphocytes % (auto) 2.1 %; Monocytes # (auto) 1.29 K/uL (0.11-0.59); Monocytes % (auto) 4.1 %; Neutrophils # (auto) 29.05 K/uL (1.4-6.5); Neutrophils % (auto) 92.8 %; Spherocytes Occasional
--- NOTE | 2019-01-02 06:55 | XRay Report ---
XR chest 1V portable CLINICAL HISTORY: Shortness of breath. Abnormal chest x-ray COMPARISON STUDY: 01/01/2019 FINDINGS: The cardiac and mediastinal contours remain stable. Extensive right lung airspace opacities most pronounced in the right upper lung zone remain stable. A lucency within the right upper lung zo ne, may represent underlying bulla or cavitation. There is a small right pleural effusion.[ IMPRESSION: 1. Emphysema 2. Stable extensive right lung airspace opacities 3. Small right pleural effusion Electronically signed by: Sung Moses M.D. 01/02/2019 6:54 AM
[2019-01-02] MEDS: FORMOTEROL 20 MCG/2 ML VIAL NEB SCH ×2 (07:08→19:46)
[2019-01-02] MEDS: BUDESONIDE 0.5 MG/2 ML VIAL (PULMICORT) NEB SCH ×2 (07:08→19:46)
--- NOTE | 2019-01-02 07:27 | Critical Care Progress Note ---
Date of Service January 02, 2019 Assessment & Plan (1) Acute hypoxemic respiratory failure: Reason Critically Ill: 58-year-old male with history of COPD and alcohol abuse that was admitted with pneumonia on COPD and transferred to the ICU for worsening withdrawal in the setting of cardiomyopathy Neuro - [facility] ICU: Negative Alcohol withdrawalcontinue ENEDELIA scale and PRN Ativan as needed -Patient's symptoms have improved and AWSS scores are trending down -Continue thiamine, folic acid Cardiac - Sinus tachycardiaadded propanolol for tachycardia related to withdrawal Respiratory - Acute hypoxic respiratory failurelikely related to community-acquired pneumonia versus COPD -Remains stable on 2 L nasal cannula, will continue -Chest x-ray stable from yesterday's study this a.m. -Continue Rocephin and azithromycin -We will trend WBCs with routine CBCs -Continue nebs and steroids GI - Malnutrition- will likely need consult to roll repairer once patient condition and neurological status have improved Heart healthy diet RENAL/LYTES - Hyponatremiaresolved, was likely from alcohol abuse Continue to monitor routine BMPs and replete electro lites as necessary - No problems at this time ENDO - No history of thyroid disease or diabetes HEME - H&H stable, monitor with routine CBCs ID - Continue azithromycin and Rocephin for pneumonia LINES/IV ACCESS - Peripheral IVs DVT PROPHYLAXIS - Lovenox Thank you for allowing us to participate in the care of this patient. Please refer to my attending physician's documentation for any further recommendations. (2) Cardiomyopathy: (3) Pneumonia involving right lung: (4) COPD exacerbation: (5) Alcohol withdrawal: (6) Hyponatremia: Supervising Physician Co-Signing Physician Notes I have personally evaluated and examined this patient. I agree with assessment and plan of Princess HOPE. Subjective Patient appears somewhat drowsy this morning but improved from the previous day. He is more a low alert and reports that he ate some breakfast this a.m. He is oriented to person place and time and withdrawal symptoms seem minimal. He did receive some Ativan overnight but ENEDELIA scores have improved. Patient remains hemodynamically stable without need for vasopressors and currently only requiring 2 L nasal cannula. He denies headache, nausea or vomiting, dizziness, chest pain, palpitations, shortness of breath, diarrhea. He does report slight tremors in upper extremities and general malaise. At this time patient is stable for downgrade from ICU status. Review of Systems Review of Systems: All systems reviewed & are unremarkable except as noted in HPI & below Physical Exam Eyes: PERRL, conjunctivae normal, anicteric sclerae ENMT: external ear and nose normal, oropharynx normal Neck: trachea midline, no thyromegaly Respiratory: normal respiratory effort, lungs clear to auscultation Cardiovascular: RRR, no murmur, no edema Heart Sounds: normal S1 and normal S2 Gastrointestinal (Abdomen): normal bowel sounds, soft, nontender, no hepatosplenomegaly Musculoskeletal: no cyanosis or clubbing, extremities motor strength 5/5 Skin: no rashes, warm and dry Psychiatric: Orientation: oriented to person; + not oriented to place and + not oriented to time Eye Contact: + poor eye contact Results & Data Vital Signs (Past 12 Hours) Vital Signs Temp Pulse Pulse Resp BP Pulse Ox 01/02/19 07:08 118 H 24 94 01/02/19 06:00 115 H 29 H 109/85 95 01/02/19 05:00 107 H 27 H 97/75 L 94 01/02/19 04:00 36.4 C L 117 H 27 H 108/79 97 01/02/19 03:00 117 H 20 110/86 96 01/02/19 02:00 116 H 24 101/78 90 01/02/19 01:00 115 H 25 H 109/84 94 01/02/19 00:00 36.5 C 115 H 17 103/81 94 01/01/19 23:00 104 H 31 H 104/80 100 01/01/19 22:27 105 H 28 H 100/79 97 01/01/19 22:00 102 H 27 H 94/73 L 97 01/01/19 21:00 111 H 31 H 102/76 94 01/01/19 20:00 36.6 C 107 H 30 H 94/76 L 96 01/01/19 19:47 107 H 22 93 PG Care Time/CCT Total # of Minutes Spent Total Time Spent with Patient: Total time spent is greater than 50% in corporate coordinator rdination of care (as documented) at patient's floor/unit and/or counseling patient: (1) Alcohol withdrawal Complication of substance-induced condition: uncomplicated Qualified Code(s): F10.230 - Alcohol dependence with withdrawal, uncomplicated
[2019-01-02] MEDS: ENOXAPARIN INJ 30 MG/0.3 ML SYR SQ SCH (07:52)
[2019-01-02] MEDS: FOLIC ACID 1 MG TAB PO SCH (07:52)
[2019-01-02] MEDS: guaiFENesin 600 MG TABCR PO SCH ×2 (07:52→21:39)
[2019-01-02] MEDS: THIAMINE HCL 100 MG TAB PO SCH ×2 (07:52→21:39)
[2019-01-02] MEDS: TIOTROPIUM BROMIDE 5 PUFF/90 MCG INH INH SCH (07:53)
[2019-01-02] MEDS: cefTRIAXone SODIUM 1,000 MG in DEXTROSE 5% 50 ML IV SCH (09:51)
[2019-01-02] MEDS: AZITHROMYCIN 500 MG in DEXTROSE 5% 250 ML IV SCH (09:51)
[2019-01-02] MEDS: PROPRANOLOL HCL 10 MG TAB PO SCH ×2 (09:51→21:39)
--- NOTE | 2019-01-02 14:46 | Cardiology Progress Note ---
Date of Service January 02, 2019 Assessment & Plan (1) Sinus tachycardia: He continues to have a tachycardia times. Heart rates seem to be improving. This is likely due to a mild improvement in his condition and perhaps better treatment of his alcohol withdrawal. He was started on low-dose propranolol. (2) Cardiomyopathy: He is not appear overtly volume overloaded. Whether he has an element of pulmonary edema is unclear however his oxygenation appears better today. Hopefully his hemodynamics will improved to the point we can add a beta-henna and SIMON-inhibitor. Eventual evaluation of his coronary vasculature would also be indicated. (3) Non-ST elevation VA (NSTEMI): Clearly demand ischemia. He could have an element of coronary disease as well given his cardiomyopathy and other risk factors. Subjective This morning patient slightly drowsy. However, he did report some mild improvement in his breathing. He denies symptoms of chest discomfort. He appears to have little appetite. Review of Systems Review of Systems: Unobtainable due to cognitive status Physical Exam Physical Exam: The patient appear drowsy. He was arousable and answers some questions. HEENT: Pupils are equal and reactive to light and accommodation. Extraocular movements are intact. The sclerae are anicteric. Some ptosis involving the right eye Neuro: Cranial nerves intact Lungs: Reduced breath sounds in the right side. Prominent upper airway sounds and some mild expiratory wheezing. Better aeration on the left. Cardiac: Heart demonstrates a regular rate and rhythm. Normal S1 and S2. No murmurs on examination. Pulses: The patient has palpable radial pulses bilaterally that are equal in intensity Extremities: There was no evidence of hypoperfusion. There is no cyanosis or clubbing. There is no edema. Skin: I did not appreciate any rashes on examination today. Results & Data Vital Signs (Past 12 Hours) Vital Signs Temp Pulse Pulse Resp BP Pulse Ox 01/02/19 14:00 98 H 24 94/66 L 99 01/02/19 13:00 98 H 24 95/55 L 89 L 01/02/19 12:00 93 H 26 H 85/61 L 91 01/02/19 11:00 36.7 C 98 H 24 96/53 L 91 01/02/19 10:00 120 H 20 111/89 90 01/02/19 09:00 118 H 18 106/85 95 01/02/19 08:00 36.7 C 119 H 20 113/89 92 01/02/19 07:08 118 H 24 94 01/02/19 07:00 117 H 24 111/83 94 01/02/19 06:00 115 H 29 H 109/85 95 01/02/19 05:00 107 H 27 H 97/75 L 94 01/02/19 04:00 36.4 C L 117 H 27 H 108/79 97 01/02/19 03:00 117 H 20 110/86 96 Laboratory Results Abnormal Lab Results 01/01/19 01/02/19 01/02/19 21:38 04:25 04:25 WBC 31.32 H* RBC 3.68 L Hgb 12.7 L Hct 35.9 L MCV 97.6 MCH 34.5 H MCHC 35.4 RDW Std Deviation 47.2 H RDW Coeff of Jm 13.3 Plt Count 446 H MPV 9.2 Immature Gran % (Auto) 0.8 Neut % (Auto) 92.8 Lymph % (Auto) 2.1 [place] % (Auto) 4.1 Eos % (Auto) 0.0 Baso % (Auto) 0.2 Immature Gran # (Auto) 0.26 H Neut # (Auto) 29.05 H Lymph # (Auto) 0.67 L [place] # (Auto) 1.29 H Eos # (Auto) 0.00 Baso # (Auto) 0.05 Spherocytes Occasional Echinocytes 2+ Acanthocytes (Spur) 1+ Sodium 137 Potassium 4.4 Chloride 105 Carbon Dioxide 24 Anion Gap 8.0 BUN 12 Creatinine 0.35 L Est Cr Clr Drug Dosing 163.7 Est GFR ( Amer) > 150.0 Est GFR (Non-Af Amer) 139.3 BUN/Creatinine Ratio 33.5 H Glucose 107 H POC Glucose 114 H Calcium 8.6 Phosphorus 3.8 Magnesium 2.4 PG Care Time/CCT Total # of Minutes Spent Total Time Spent with Patient: Total time spent is greater than 50% in coordination of care (as documented) at patient's floor/unit and/or counseling patient:
[2019-01-02] MEDS: ALBUT/IPRATROP 3MG/0.5MG NEB 3 ML VIAL NEB PRN (21:46)
--- NOTE | 2019-01-02 23:56 | Hospitalist Progress Note ---
Date of Service January 02, 2019 Assessment & Plan (1) Pneumonia involving right lung: CXR on 12/29 showed RUL pneumonia. - Initially improved on ceftriaxone & levofloxacin. Simplified to levofloxacin on 12/30, but he worsened with increased work of breathing and WBC, so he was switched to ceftriaxone and azithromycin on 12/31 per pulm/CC team. - Switched to IV steroids on 12/31 for worsening breathing - DuoNebs PRN - Sputum Gram stain and culture if he can produce one - Guaifenesin extended release 600 mg p.o. twice daily -Plan initially was to transfer patient out of ICU, however patient is still having difficulty breathing. Will continue to monitor. (2) Alcohol withdrawal: On 12/31, began to have more significant alcohol withdrawal. - Started on Librium & more judicious Ativan PRN - Continue ENEDELIA scale -will continue on 01/02 (3) Cardiomyopathy: Echo was done on 12/30 for concern for afib (see below). EF is 30-35% with regional wall motion abnormalities. RV is severely dilated. 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 - Plan as above. (5) Sinus tachycardia: Initially thought to be in afib with RVR per EKG auto-read; however, he has only been in sinus tachycardia with rates in the 100-120 range. - Stopped heparin gtt - Treating pneumonia - Monitor HR (6) Non-ST elevation OK (NSTEMI): It appears patient did not suffer a NSTEMI, but perhaps demand ischemia. (7) COPD exacerbation: Possibly mild COPD exacerbation with increased shortness of breath. - See above (8) Hypotension: Multifactorial, associated with hypoalbuminemia, cachexia. BP is improving will monitor. (9) Alcohol abuse: Patient drinks approx. 75 beers/wk. (~8-12/day). Per prior notes, had mild withdrawal during last admission. Patient has no interest in quitting and declined any further discussion on his drinking. - Continue ENEDELIA protocol as above - Vitamin supplements. (10) Current every day smoker: Cessation counseling. (11) DVT prophylaxis: Lovenox 40mg Spent 35 minutes in management of patient. Patient is now on room air. Will transfer patient out of the ICU. (12) Severe protein-calorie malnutrition: Subjective 58 yo male appears to be feeling better. He is still weak, but states he is breathing better. He denies any new symptoms Review of Systems Review of Systems: All systems reviewed & are unremarkable except as noted in HPI & below Physical Exam Physical Exam: Constitutional: WD/WN, vitals as above + acute distress Eyes: EOM intact bilaterally; no conjunctival abnormality ENMT: external ear and nose normal, oropharynx normal Neck: trachea midline, no thyromegaly normal visual inspection Respiratory: decreased breath sounds and coarse breath sounds Cardiovascular: Rate/Rhythm: regular rhythm and + tachycardic Heart Sounds: normal S1 and normal S2 Vessels: no JVD Extremities: no edema Gastrointestinal (Abdomen): Inspection/Auscultation: abdomen normal to inspection; abdomen not distended Musculoskeletal: no cyanosis or clubbing, extremities motor strength 5/5 Skin: no rashes, warm and dry Neurologic: moves all extremities and awake Psychiatric: Orientation: alert, oriented to person and cooperative Results & Data Vital Signs (Past 12 Hours) Vital Signs Temp Pulse Pulse Resp BP Pulse Ox 01/02/19 23:30 36.4 C L 95 H 18 107/78 91 01/02/19 21:48 116 H 22 90 01/02/19 19:52 112 H 01/02/19 19:51 111 H 20 84 L 01/02/19 16:00 105 H 24 102/84 90 01/02/19 15:00 101 H 24 99/77 L 96 01/02/19 14:00 98 H 24 94/66 L 99 01/02/19 13:00 98 H 24 95/55 L 89 L 01/02/19 12:00 93 H 26 H 85/61 L 91 PG Care Time/CCT Total # of Minutes Spent Total Time Spent with Patient: Total time spent is greater than 50% in coordination of care (as documented) at patient's floor/unit and/or counseling patient: (1) Alcohol withdrawal Complication of substance-induced condition: uncomplicated Qualified Code(s): F10.230 - Alcohol dependence with withdrawal, uncomplicated (2) Sepsis Sepsis acute organ dysfunction status: unspecified Sepsis type: sepsis due to unspecified organism Qualified Code(s): A41.9 - Sepsis, unspecified organism
[2019-01-03] MEDS: FORMOTEROL 20 MCG/2 ML VIAL NEB SCH ×2 (07:18→20:52)
[2019-01-03] MEDS: BUDESONIDE 0.5 MG/2 ML VIAL (PULMICORT) NEB SCH ×2 (07:18→20:52)
[2019-01-03] MEDS: ENOXAPARIN INJ 30 MG/0.3 ML SYR SQ SCH (09:20)
[2019-01-03] MEDS: PROPRANOLOL HCL 10 MG TAB PO SCH (09:20)
[2019-01-03] MEDS: guaiFENesin 600 MG TABCR PO SCH ×2 (09:20→21:26)
[2019-01-03] MEDS: THIAMINE HCL 100 MG TAB PO SCH ×2 (09:20→21:25)
[2019-01-03] MEDS: FOLIC ACID 1 MG TAB PO SCH (09:20)
[2019-01-03] MEDS: TIOTROPIUM BROMIDE 5 PUFF/90 MCG INH INH SCH (09:21)
[2019-01-03] MEDS: cefTRIAXone SODIUM 1,000 MG in DEXTROSE 5% 50 ML IV SCH (09:46)
[2019-01-03] MEDS: AZITHROMYCIN 500 MG in DEXTROSE 5% 250 ML IV SCH (10:26)
--- NOTE | 2019-01-03 13:50 | Critical Care Progress Note ---
Date of Service January 03, 2019 Assessment & Plan (1) Acute hypoxemic respiratory failure: Reason Critically Ill: 58-year-old male with history of COPD and alcohol abuse that was admitted with pneumonia on COPD was transferred to ICU for worsening withdrawal in the setting of cardiomyopathy and transferred back to the floor 2 days ago after withdrawal symptoms improved. Now seen on floor for hypotension. Neuro - [facility] ICU: Negative Alcohol withdrawalpatient no longer appears to be withdrawing and has not received Ativan since 12/31 Cardiac - Sinus tachycardiapropanolol for tachycardia related to withdrawal Respiratory - Acute hypoxic respiratory failurewas being treated for community-acquired pneumonia with azithromycin and Rocephin, finishes course of Rocephin today -Currently maintain sats on room air but has increased work of breathing -Would repeat chest x-ray but may need CT Noncon chest if suspicion for anaerobes/empyema considering patient was covered for CAP -Would DC Rocephin after course complete -WBCs continued to be elevated -Would check lactate, if elevated would repeat blood cultures -Would obtain sputum culture -Continue nebs GI - Malnutrition-patient may need consult to custodian athletic equipment Heart healthy diet RENAL/LYTES - Continue to monitor routine BMPs and replete electrolytes as necessary - No problems at this time ENDO - No history of thyroid disease or diabetes HEME - H&H stable, monitor with routine CBCs ID - If suspicion for progression of pneumonia would switch antibiotic coverage to Levaquin LINES/IV ACCESS - Peripheral IVs DVT PROPHYLAXIS - Lovenox Thank you for allowing us to participate in the care of this patient. Please refer to my attending physician's documentation for any further recommendations. (2) Cardiomyopathy: (3) Pneumonia involving right lung: (4) COPD exacerbation: (5) Alcohol withdrawal: (6) Hyponatremia: Supervising Physician Co-Signing Physician Notes I have personally evaluated and examined this patient. I agree with assessment and plan of Princess HOPE. Worsening pulmonary function, concern for empyema versus lung abscess. He was on appropriate coverage for community-acquired pathogens however given alcoholism he could be at risk for anaerobes, subsequently we did a thoracentesis with pigtail catheter placement for possible mist 2 protocol in the setting of an empyema. The Gram stain was negative but it was significantly cloudy the pleural pH was unable to be obtained secondary to the specimen clotting. The patient has a relative thrombocytosis and his INR was effectively within normal limits when it was checked on the ninth. Ultrasound findings were concerning for possible loculation as the predominant area of fluid was located in the lateral aspect of the chest without significant fluid located posteriorly when the patient was sitting upright. There also appeared to be possible fibrinous stranding/loculations on the ultrasound, therefore we will start a missed protocol while awaiting culture results. Subjective Mr. Castillo was transferred to the floor 2 days ago. We were contacted by his hospitalist attending who informed us that the patient was now hypotensive and receiving a 1 L bolus. I went and saw the patient on the floor and examined him. It appears that the patient's pulmonary status is worse compared to 2 days ago. He has developed a significant rhonchi in the right middle lobe with auscultation and appears to be using accessory muscles with each breath. However he does maintain oxygen saturation on room air. Blood pressure did improve after receiving 1 L bolus, and recommend checking lactate. If this is a progression of pneumonia, would recommend broadening antibiotics to Levaquin for additional pseudomonal and anaerobic coverage as patient can have loculated lesion or empyema. Would also recommend CT Noncon of chest if lactate elevated. If lactate normal would still recommend repeating chest x-ray. If patient remains hypotensive following bolus and there is concern for sepsis, we could transfer to ICU for additional vasopressor support. Currently patient denies dizziness, syncope, chest pain, palpitations, symptoms of increased work of breathing, shortness of breath, abdominal pain. Review of Systems Review of Systems: All systems reviewed & are unremarkable except as noted in HPI & below Physical Exam Eyes: PERRL, conjunctivae normal, anicteric sclerae ENMT: external ear and nose normal, oropharynx normal Neck: trachea midline, no thyromegaly Respiratory: + uses accessory muscles and + cough Auscultation: + crackles and + rhonchi Worsening of coarse crackles and newly developed right middle lobe rhonchi with auscultation compared to findings 2 days ago. Cardiovascular: RRR, no murmur, no edema Heart Sounds: normal S1 and normal S2 Gastrointestinal (Abdomen): normal bowel sounds, soft, nontender, no hepatosplenomegaly Musculoskeletal: no cyanosis or clubbing, extremities motor strength 5/5 Skin: no rashes, warm and dry Psychiatric: A+Ox3, euthymic affect Results & Data Vital Signs (Past 12 Hours) Vital Signs Temp Pulse Resp BP Pulse Ox 01/03/19 13:42 36.4 C L 97 H 97/71 L 90 01/03/19 11:39 93 01/03/19 11:37 79/58 L 01/03/19 11:36 36.4 C L 96 H 16 88/62 L 90 01/03/19 07:26 109 H 01/03/19 07:16 36.5 C 113 H 16 119/88 91 01/03/19 03:46 36.5 C 106 H 20 107/78 90 PG Care Time/CCT Total # of Minutes Spent Total Time Spent with Patient: Total time spent is greater than 50% in coordination of care (as documented) at patient's floor/unit and/or counseling patient: (1) Alcohol withdrawal Complication of substance-induced condition: uncomplicated Qualified Code(s): F10.230 - Alcohol dependence with withdrawal, uncomplicated
[2019-01-03 14:15] LABS: Magnesium 2.3 mg/dl (1.8-2.4); Phosphorus 3.6 mg/dl (2.5-4.9)
--- NOTE | 2019-01-03 15:58 | CT Scan Report ---
CT chest wo con CLINICAL HISTORY: 58 years-old Male presenting with hypoxia. TECHNIQUE: Multidetector CT imaging of the chest was performed without the use of intravenous contras t. IV contrast: None. One or more dose lowering techniques were used consistent with the principles o f ALARA (as low as reasonably achievable), including automatic exposure control, mA or kV adjustment to individual patient size, and/or use of iterative reconstruction. COMPARISON: CTA chest from 11/06/2018. CT DOSE (mGy.cm): The estimated cumulative dose is 213.32 mGy.cm. FINDINGS: Clerical Adjudicator topogram: New right upper lung infiltrate in comparison to prior CT. Soft tissues: Normal thyroid and thoracic inlet. Numerous subcentimeter superior mediastinal lymph no neha likely on a reactive basis. Evaluation of the miguel ángel limited in the absence of intravenous contrast . Atherosclerosis of the aorta. Normal heart size. Coronary artery and aortic valve calcification. Si mple moderate right pleural effusion. Upper abdomen normal. Lungs and airways: No pneumothorax. Debris in the trachea. Interval development of significant solid consolidation surrounding the right upper lobe and to a lesser extent in the dependent portions of th e right lower lobe. The right middle lobe is largely spared. The left lung is spared. Moderate diffus e centrilobular emphysema. Musculoskeletal: Normal osseous structures. IMPRESSION: 1. Interval development of multifocal consolidation in the right lung diffusely involving the right upper lobe as well as dependent portions of the right lower lobe. Multifocal pneumonia is favored. 2. Moderate parapneumonic right pleural effusion. 3. Background moderate emphysema. Electronically signed by: Cameron Romero M.D. 01/03/2019 3:57 PM
[2019-01-03] MEDS ORDERED: VANCOMYCIN CONSULT ACTIVE PRN (16:50)
[2019-01-03] MEDS ORDERED: MIDODRINE HCL 2.5 MG TAB PO SCH (17:00)
[2019-01-03] MEDS ORDERED: VANCOMYCIN HCL 1,000 MG in SODIUM CHLORIDE 0.9% 500 ML IV ONE (18:00)
[2019-01-03] MEDS: CLINDAMYCIN 600 MG in DEXTROSE 5% 50 ML IV SCH (18:28)
[2019-01-03 20:14] LABS: Albumin Level 1.6 gm/dl (3.4-5.0); Bilirubin,Total 0.2 mg/dl (0.2-1); Total Protein 4.8 gm/dl (6.4-8.2)
--- NOTE | 2019-01-03 20:42 | Pharmacy Report ---
Pharmacy Abx Initial Consult - Date of Service January 03, 2019 - Pharmacy Dosing Scope Date of Consult: 01-03-19 Consultation requested by: Dr. Quinn Pharmacy is consulted to initiate vancomycin IV dosing therapy, order appropriate labs and adjust drug dose/frequency. - Subjective The patient is a 58 year old M admitted on 12/29/18 22:14 with PNA and sepsis. - Objective Height: 5 ft 7 in Weight: 46.5 kg Vital Signs (Past 12hrs): Vital Signs Temp Pulse Resp BP Pulse Ox 01/03/19 20:30 104 H 121/86 01/03/19 20:15 108 H 113/87 01/03/19 20:00 36.7 C 109 H 100/86 01/03/19 19:45 108 H 109/86 01/03/19 19:30 105 H 97/56 L 98 01/03/19 19:15 36.6 C 105 H 95/66 L 96 01/03/19 19:01 108 H 01/03/19 19:00 106 H 93/71 L 90 01/03/19 18:55 109 H 98/65 L 01/03/19 18:52 109 H 99/68 L 01/03/19 18:18 36.6 C 111 H 24 110/81 91 01/03/19 18:00 109 H 01/03/19 17:30 103 H 01/03/19 17:10 103 H 01/03/19 17:00 102 H 01/03/19 16:30 108 H 01/03/19 16:00 108 H 01/03/19 15:30 104 H 01/03/19 15:09 36.4 C L 64 18 92/70 L 93 01/03/19 15:00 99 H 01/03/19 14:30 101 H 01/03/19 14:00 102 H 01/03/19 13:42 36.4 C L 97 H 97/71 L 90 01/03/19 13:30 103 H 01/03/19 11:39 93 01/03/19 11:37 79/58 L 01/03/19 11:36 36.4 C L 96 H 16 88/62 L 90 Micro Results: 01/03/19 20:26 Gram Stain - Pending Pleural Fluid Aerobic and Anaerobic Culture - Pending 01/03/19 20:26 Acid Fast Bacilli Smear - Pending Pleural Fluid Acid Fast Bacilli Culture - Pending - Risk Factors for Resistance * Hospitalization for 48 hours or more within the past 90 days * Current hospitalization > 5 days * Antimicrobial use within the last 90 days: Levaquin, Ceftriaxone, Azithromycin - Assessment & Plan Assessment 58 year old M with hx of COPD, malnutrition from alcohol abuse, recent hospitalization for PNA October,. Plan Vancomycin, clindamycin 600mg iv q8, and Levaquin 750mg IV q 24h for treatment of PNA & sepsis. Vancomycin IV * Estimated PK Parameters: Vd 0.7 L/kg, Shamra 0.112 hr-1, t1/2 6 hr * Loading dose: 1000 mg (21 mg/kg) * Maintenance dose: 750 mg IV (16 mg/kg) every 8 hours * Goal trough level for PNA : 17 to 20 mcg/mL * Trough/Random level ordered for 01/04 prior to 1800 dose. Pharmacy will continue to follow and will adjust dose/frequency as necessary. Thank you.
--- NOTE | 2019-01-03 20:44 | Procedure Note ---
Procedure Note Date of Service January 03, 2019 Procedure: Pigtail Catheter Chest Tube Placement Attending: Dr. Ashraf APC: Neil De La Cruz PA-C Indication: Complex RIGHT Lower Lobe Effusion w/ concerns for empyema. Anesthesia: Lidocaine 1% Written consent was obtained and on the chart per attending providers. Prior to procedure, chest x-ray films were reviewed by myself and Dr. Ashraf demonstrated a dense fluid collection in inferior aspect of the RIGHT sided chest wall with concerns for loculation. Moving the probe laterally, we were able to view a window of effusion for catheter entry. A time-out was completed verifying correct patient, procedure, site, positioning, and implant(s) or special equipment if applicable. Utilizing bedside ultrasound, chest wall was evaluated for location for optimal chest tube placement. Location between the RIGHT lower ribs were marked on the skin using gentle pressure. The RIGHT sided chest wall was prepped with chlorhexidine and draped in the typical sterile fashion. 8.0 mL of 1% Lidocaine without epinephrine was used to anesthetize the skin down to the dorsal surface of the RIGHT sided rib. At this point, I was unable to retrieve pleural fluid return. The case was handed off to my attending for completion. Dr. Ashraf was able to achieve entry into the pleural space. Lidocaine was injected into the pleural space for increased anesthetization. Introducer needle on syringe was inserted in perpendicular fashion taking care to ride just above the dorsal surface of the RIGHT lower rib. Entry into the pleural space was heralded by cloudy pleural fluid return into the syringe while under gentle aspiration. Guide wire was advanced into the pleural space without resistance and the introducer needle was subsequently removed. Scalpel was used to make small incision of the superficial tissue, parallel to the direction of the rib anatomy. Dilator was advanced uneventfully over the guide wire into the pleural space. 8.5 [place] Pigtail Catheter was inserted into the pleural space. Inner introducer and guide wire were removed. Heimlich valve and drain were immediately connected to pre-prepared CYNDI pleur-evac system. Pigtail was sutured securely in place and sterile dressing was applied. Chest tube was placed to -[id number] suction. Patient tolerated procedure well. Blood Loss: Minimal Complications: None Post procedure Chest X-ray was ordered and reviewed by myself which demonstrated adequate placement. Supervising Physician Co-Signing Physician Notes I was present and assisted through the entire procedure Coding CPT Codes Pulmonary/Thoracic - Pulmonary and Thoracic: Pleural drainage w/imaging ([id number])
[2019-01-03 20:55] LABS: Glucose Pleural Fluid 132 mg/dl
[2019-01-03 21:07] LABS: Appearance Pleural Fluid HAZY; Color Pleural Fluid YELLOW; Mononuclear WBC Pleural 6.3 %; Polynuclear WBC Pleural 93.7 %; RBC Pleural Fluid (A) < 3000 /uL; Source Pleural Fluid RIGHT LUNG; WBC Pleural Fluid (A) 5230 /uL
[2019-01-03 21:09] LABS: Amylase Pleural Fluid 27 U/L; LDH Pleural Fluid 187 U/L; Total Protein Pleural Fluid 1.6 g/dl
--- NOTE | 2019-01-03 21:12 | XRay Report ---
SINGLE VIEW CHEST CLINICAL HISTORY: Status post chest tube placement. FINDINGS: An AP, portable, upright chest radiograph is compared to study dated 01/02/2019 and correlat ed with chest CT performed the same day 01/03/2019. The examination is degraded by portable technique and patient rotation. The heart is top normal for projection noting atherosclerotic calcification of the thoracic aorta. Advanced emphysema and chronic interstitial thickening are similar to previous. Dense airspace consolidation is again seen throughout the right upper lobe, with patchy consolidative change throughout the right lower lung. There is a small right pleural effusion which is decreased i n size from today's earlier examination. A pigtail drain is present at the right lung base. The left lung appears clear. No pneumothorax is seen. The skeletal structures are osteopenic. The bony thorax is grossly intact. IMPRESSION: 1. A pigtail drainage catheter has been placed at the right lung base. No pneumothorax is seen post p rocedure. 2. Airspace consolidation throughout the right lung is similar in appearance to previous. 3. A right pleural effusion has decreased in size. 4. Advanced emphysema. Electronically signed by: Dru Akbar M.D. 01/03/2019 9:11 PM
[2019-01-03] MEDS: LEVOFLOXACIN/D5W 750 MG/150 ML BAG IV SCH (21:33)
[2019-01-03] MEDS ORDERED: ALTEPLASE, RECOMBINANT 10 MG in SYRINGE 50 ML IPL SCH ×2 (22:00→23:00)
[2019-01-03] MEDS ORDERED: DORNASE ALFA 5 ML in SYRINGE 25 ML IPL SCH ×2 (22:00→23:00)
--- NOTE | 2019-01-03 23:18 | Procedure Note ---
Procedure Note Date of Service January 03, 2019 Procedure Name: Administration of TPA through Chest Tube for Loculated Pneumonia (MIST2 Protocol) Procedure time out: side/site verified, patient ID confirmed, correct procedure Consent obtained: Written (Per attending's documentation.) Time of procedure: 2304 Performed by: Neil De La Cruz PA-C Indications: Therapeutic Contraindications: None Description: Using clean technique, the chest tube was clamped proximal to the tubing connector and line was observed for air leak. There was no evidence of air leak in the chest tube. Using a 60 mL syringe, Alteplase 10mg mixed with 50mL NSS was unable to be complete instilled. Prior to my assessment of chest tube, there had been a moderate amount of pleural fluid drainage from the tube itself. I was unable to successfully instill the TPA with placing the patient completely in the LEFT lateral decubitus position. I attempted to strip the chest tube without success. At this point, the chest tube was clamped just distally to the instillation of the TPA. We will leave this instilled and reassess if there may have been clot formation at the tube itself. The chest tube was left clamped and nursing was instructed to drain in one hour. Complications: No immediate complications appreciated. Patient tolerated procedure: Well Post-procedure vital signs: Reviewed and stable. Coding CPT Codes Pulmonary/Thoracic - Pulmonary and Thoracic: [place] chest fibrin initial day ([id number])
--- NOTE | 2019-01-03 23:25 | Hospitalist Progress Note ---
Date of Service January 03, 2019 Assessment & Plan (1) Pneumonia involving right lung: Patient has been in the hospital since 12/29. This would be day five of hospital stay. Patient does not appear to be improving as would hope. CXR on 12/29 showed RUL pneumonia. - Initially improved on ceftriaxone & levofloxacin. Simplified to levofloxacin on 12/30, but he worsened with increased work of breathing and WBC, so he was switched to ceftriaxone and azithromycin on 12/31 per pulm/CC team. - Switched to IV steroids on 12/31 for worsening breathing Patient had repeat CT scan which shows worsening infiltrates. Will place patient on coverage for pseudomonas, MRSA and anaerobes. D/W secretary, patient will be transferred to the ICU. It appears patient may have empyema. Patient appears to be very sick. - DuoNebs PRN - Sputum Gram stain and culture if he can produce one - Guaifenesin extended release 600 mg p.o. twice daily (2) Alcohol withdrawal: Patient will continue on CIWAA scale. No signs of withdrawal. (3) Cardiomyopathy: Echo was done on 12/30 for concern for afib (see below). EF is 30-35% with regional wall motion abnormalities. RV is severely dilated. 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 - Plan as above. (5) Sinus tachycardia: Initially thought to be in afib with RVR per EKG auto-read; however, he has only been in sinus tachycardia with rates in the 100-120 range. - Stopped heparin gtt - Treating pneumonia - Monitor HR (6) Non-ST elevation MN (NSTEMI): It appears patient did not suffer a NSTEMI, but perhaps demand ischemia. (7) COPD exacerbation: Possibly mild COPD exacerbation with increased shortness of breath. - See above (8) Hypotension: Multifactorial, associated with hypoalbuminemia, cachexia. BP again is worsening. (9) Alcohol abuse: Patient drinks approx. 75 beers/wk. (~8-12/day). Per prior notes, had mild withdrawal during last admission. Patient has no interest in quitting and declined any further discussion on his drinking. - Continue ENEDELIA protocol as above - Vitamin supplements. (10) Current every day smoker: Cessation counseling. (11) Severe protein-calorie malnutrition: BMI is 16. Patient appears to not have a good appetite and in the hospital only prefers to drink fluid. This likely shows that patient at home gets his calories from his alcoholic beverages. His low BMI will likely work against him in his recovery. (12) Severe sepsis: Patient having signs of sepsis. WBC over 30. BP systolic below 90. Patient will be transferred to ICU. Placed bolus of fluid. (13) Acute hypoxemic respiratory failure: Patient is now requiring 5 liters of oxygen. Will continue to monitor. This is from his right upper lobe pneumonia. Given his worsening, will cover for MRSA, pseUdomonas and anaerobes. (14) Empyema lung: As noted on imaging, patient has a collection of fluid around the right lung. This likely represents an eMpyema. Patient will likely get a thoracocenthesis to examine the fluid. D/W secretary. (15) DVT prophylaxis: Lovenox 40mg Spent 80 minutes in management of patient. Patient was seen for multiple visits. 12:15 TO 12:35 14:00 TO 14:35 16:25 TO 16:50 Subjective Patient was seen in bed. He reports that he feels well. However, nursing staff has told me that his extremities are cold to touch. He has also required oxygen today and is now on 5 liters. Patient appears to be downplaying his symptoms as he states he has no complaints. Review of Systems Review of Systems: All systems reviewed & are unremarkable except as noted in HPI & below Physical Exam Physical Exam: Constitutional: WD/WN, vitals as above, appears calm, cold and clammy to the touch Eyes: EOM intact bilaterally; no conjunctival abnormality ENMT: external ear and nose normal, oropharynx normal Neck: trachea midline, no thyromegaly normal visual inspection Respiratory: decreased breath sounds and coarse breath sounds, especially on the right side of the lung Cardiovascular: Rate/Rhythm: regular rhythm and + tachycardic Heart Sounds: normal S1 and normal S2 Vessels: no JVD Extremities: no edema Gastrointestinal (Abdomen): Inspection/Auscultation: abdomen normal to inspection; abdomen not distended Musculoskeletal: no cyanosis or clubbing, extremities motor strength 5/5 Skin: no rashes, warm and dry Neurologic: moves all extremities and awake Psychiatric: Orientation: alert, oriented to person and cooperative Results & Data Vital Signs (Past 12 Hours) Vital Signs Temp Pulse Pulse Resp BP Pulse Ox 01/03/19 23:01 107 H 24 108/78 99 01/03/19 22:45 133 H 102/76 99 01/03/19 22:30 112 H 26 H 108/79 96 01/03/19 22:15 112 H 112/78 99 01/03/19 22:00 36.6 C 106 H 26 H 106/75 98 01/03/19 21:45 106 H 109/70 01/03/19 21:30 108 H 106/82 97 01/03/19 21:15 107 H 109/75 97 01/03/19 21:00 106 H 22 103/65 99 01/03/19 20:58 107 H 22 99 01/03/19 20:45 105 H 100/78 99 01/03/19 20:30 104 H 121/86 01/03/19 20:15 108 H 113/87 01/03/19 20:00 36.7 C 109 H 26 H 100/86 93 01/03/19 19:45 108 H 109/86 01/03/19 19:30 105 H 97/56 L 98 01/03/19 19:15 36.6 C 105 H 95/66 L 96 01/03/19 19:01 108 H 01/03/19 19:00 106 H 93/71 L 90 01/03/19 18:55 109 H 98/65 L 01/03/19 18:52 109 H 99/68 L 01/03/19 18:18 36.6 C 111 H 24 110/81 91 01/03/19 18:00 109 H 01/03/19 17:30 103 H 01/03/19 17:10 103 H 01/03/19 17:00 102 H 01/03/19 16:30 108 H 01/03/19 16:00 108 H 01/03/19 15:30 104 H 01/03/19 15:09 36.4 C L 64 18 92/70 L 93 01/03/19 15:00 99 H 01/03/19 14:30 101 H 01/03/19 14:00 102 H 01/03/19 13:42 36.4 C L 97 H 97/71 L 90 01/03/19 13:30 103 H 01/03/19 11:39 93 01/03/19 11:37 79/58 L 01/03/19 11:36 36.4 C L 96 H 16 88/62 L 90 PG Care Time/CCT Total # of Minutes Spent Total Time Spent with Patient: Total time spent is greater than 50% in coordination of care (as documented) at patient's floor/unit and/or counseling patient: (1) Alcohol withdrawal Complication of substance-induced condition: uncomplicated Qualified Code(s): F10.230 - Alcohol dependence with withdrawal, uncomplicated (2) Sepsis Sepsis acute organ dysfunction status: unspecified Sepsis type: sepsis due to unspecified organism Qualified Code(s): A41.9 - Sepsis, unspecified organism
[2019-01-04] MEDS: CLINDAMYCIN 600 MG in DEXTROSE 5% 50 ML IV SCH ×3 (02:59→17:58)
[2019-01-04] MEDS: VANCOMYCIN HCL 750 MG in SODIUM CHLORIDE 0.9% 250 ML IV SCH ×3 (02:59→21:22)
[2019-01-04 05:25] LABS: Hematocrit (blood only) 37.2 % (42-52); Hemoglobin 12.7 g/dL (14.0-18.0); Mean Corpuscular Hemoglobin 33.7 pg (25-34); Mean Corpuscular Hgb Conc 34.1 g/dL (32-36); Mean Corpuscular Volume 98.7 fL (80-100); Platelet Count 306 K/uL (130-400); RDW Coefficient of Variation 13.5 % (11.5-14.5); RDW Standard Deviation 48.6 fL (36.4-46.3); Red Blood Count 3.77 M/uL (4.7-6.1); White Blood Count 26.69 K/uL (4.8-10.8)
[2019-01-04 05:44] LABS: BUN Creatinine Ratio 32.8 (10-20); Calcium 7.8 mg/dl (8.5-10.1); Creatinine Clr Calc Pharmacy 116.5 ml/min; Est GFR (African American) 144.3; Est GFR (Non-African American) 124.5; Magnesium 2.1 mg/dl (1.8-2.4); Potassium 3.9 mmol/L (3.5-5.1)
[2019-01-04 05:48] LABS: Phosphorus 2.8 mg/dl (2.5-4.9)
[2019-01-04 05:54] LABS: Basophils # (auto) 0.04 K/uL (0-0.2); Basophils % (auto) 0.1 %; Eosinophils # (auto) 0.13 K/uL (0-0.5); Eosinophils % (auto) 0.5 %; Immature Granulocytes # (auto) 0.81 K/uL (0.00-0.02); Lymphocytes # (auto) 0.88 K/uL (1.2-3.4); Lymphocytes % (auto) 3.3 %; Monocytes # (auto) 1.33 K/uL (0.11-0.59); Neutrophils % (auto) 88.1 %; Toxic Vacuolation 1+
--- NOTE | 2019-01-04 07:05 | XRay Report ---
XR chest 1V portable CLINICAL HISTORY: mist protocol dyspnea COMPARISON STUDY: 01/03/2019 FINDINGS: Unchanged consolidative change right pulmonary apex. Right basilar drainage catheter is unc hanged in location. Trace pleural fluid right base. Left lung remains grossly clear. IMPRESSION: 1. No major change compared to the prior study. 2. All findings appear similar with consolidative/infiltrative changes right apex considered stable. The above report was generated using voice recognition software. It may contain grammatical, syntax or spelling errors. Electronically signed by: Maximilian Knox M.D. 01/04/2019 7:04 AM
[2019-01-04] MEDS: FORMOTEROL 20 MCG/2 ML VIAL NEB SCH ×2 (07:13→19:15)
[2019-01-04] MEDS: BUDESONIDE 0.5 MG/2 ML VIAL (PULMICORT) NEB SCH ×2 (07:13→19:15)
--- NOTE | 2019-01-04 07:37 | Critical Care Progress Note ---
Date of Service January 04, 2019 Assessment & Plan (1) Acute hypoxemic respiratory failure: Reason Critically Ill: 58-year-old male with history of COPD and alcohol abuse that was admitted with pneumonia on COPD was transferred to ICU for worsening withdrawal in the setting of cardiomyopathy and transferred back to the floor 2 days ago after withdrawal symptoms improved. Now transferred back from floor for hypotension in the setting of worsening pneumonia. Neuro - [facility] ICU: Negative Alcohol withdrawalpatient no longer appears to be withdrawing and has not received Ativan since 12/31 Cardiac - Sinus tachycardiapropanolol for tachycardia related to withdrawal Respiratory - Acute hypoxic respiratory failurewas being treated for community-acquired pneumonia with azithromycin and Rocephin, however pneumonia became significantly worse on CT imaging and patient hypotensive -CT showed multifocal pneumonia in the right lung along with parapneumonic effusion -Underwent thoracentesis yesterday, cath left in for alteplase dornase treatment -Antibiotics broadened to Levaquin, Vanco, clindamycin -Currently on 2 L nasal cannula -This morning's chest x-ray appears improved -Gram stain negative on pleural fluid but cultures pending, was unable to obtain pH -Patient has been unable to collect sputum culture -Continue nebs GI - Sarcopenia-patient may need consult to test man -boost supplement added to diet - calorie count - Heart healthy diet RENAL/LYTES - Continue to monitor routine BMPs and replete electrolytes as necessary - No problems at this time ENDO - No history of thyroid disease or diabetes HEME - H&H stable, monitor with routine CBCs ID - Levaquin, Vanco, Clinda for pneumonia LINES/IV ACCESS - Peripheral IVs DVT PROPHYLAXIS - Lovenox Thank you for allowing us to participate in the care of this patient. Please refer to my attending physician's documentation for any further recommendations. (2) Cardiomyopathy: (3) Pneumonia involving right lung: (4) COPD exacerbation: (5) Alcohol withdrawal: (6) Hyponatremia: Supervising Physician Co-Signing Physician Notes I have personally evaluated and examined this patient. I agree with assessment and plan of [facility]. Protein calorie malnutrition is large concern. Initiating Megace, calorie counts, reinstituting beta-henna in hopes for weight gain in addition to control baseline tachycardia. There is no growth from the chest tube however I am concerned clinically for empyema he does meet some criteria violates criteria which has a large sensitivity but a small specificity. Given that the patient clinically was worse in the last 24 hours I believe it is prudent to begin the mist 2 protocol before definitive culture of the pleural space. Additionally the patient was on antibiotics so it is foreseeable that the may produce a sterile culture, no organisms were noted on the Gram stain however ultrasound findings also indicate there may be possible loculations forming. Subjective Yesterday afternoon the patient was transferred to ICU after he had some hypotension on the floor which normalized after he received 1 L bolus, however he had significant worsening of his pneumonia. Antibiotics were broadened and the patient transferred to ICU and had thoracentesis, with catheter remaining for alteplase dornase therapy. He currently remains hemodynamically stable and claims that he feels generally better than yesterday. He does admit to mild shortness of breath but appears more comfortable. He denies headache, nausea or vomiting, dizziness, syncope, chest pain, increased work of breathing, abdominal pain, diarrhea. Review of Systems Review of Systems: All systems reviewed & are unremarkable except as noted in HPI & below Physical Exam Eyes: PERRL, conjunctivae normal, anicteric sclerae ENMT: external ear and nose normal, oropharynx normal Neck: trachea midline, no thyromegaly Respiratory: normal respiratory effort, lungs clear to auscultation + uses accessory muscles and + cough Auscultation: + crackles Patient has coarse crackles auscultated over the right middle and upper lobes, has significantly improved from yesterday Cardiovascular: RRR, no murmur, no edema Heart Sounds: normal S1 and normal S2 Gastrointestinal (Abdomen): normal bowel sounds, soft, nontender, no hepatosplenomegaly Musculoskeletal: no cyanosis or clubbing, extremities motor strength 5/5 Skin: no rashes, warm and dry Psychiatric: A+Ox3, euthymic affect Orientation: oriented to person; + not oriented to place and + not oriented to time Eye Contact: + poor eye contact Results & Data Vital Signs (Past 12 Hours) Vital Signs Temp Pulse Pulse Resp BP Pulse Ox 01/04/19 07:13 106 H 18 98 01/04/19 06:00 120 H 22 114/80 91 01/04/19 05:30 116 H 116/97 98 01/04/19 05:00 110 H 22 118/80 97 01/04/19 04:30 108 H 108/76 100 08/15/19 04:00 112 H 20 115/78 85 L 01/04/19 03:30 105 H 111/74 94 01/04/19 03:00 108 H 18 118/78 88 L 01/04/19 02:30 108 H 123/87 100 01/04/19 02:00 107 H 22 108/75 93 01/04/19 01:31 105 H 113/79 92 01/04/19 01:01 105 H 18 112/81 100 01/04/19 00:31 109 H 121/77 93 01/04/19 00:16 36.7 C 110 H 113/94 100 01/03/19 23:31 108 H 128/74 98 01/03/19 23:15 108 H 111/89 100 01/03/19 23:01 107 H 24 108/78 99 01/03/19 22:45 133 H 102/76 99 01/03/19 22:43 106 H 01/03/19 22:30 112 H 26 H 108/79 96 01/03/19 22:15 112 H 112/78 99 01/03/19 22:00 36.6 C 106 H 26 H 106/75 98 01/03/19 21:45 106 H 109/70 01/03/19 21:30 108 H 106/82 97 01/03/19 21:15 107 H 109/75 97 01/03/19 21:00 106 H 22 103/65 99 01/03/19 20:58 107 H 22 99 01/03/19 20:45 105 H 100/78 99 01/03/19 20:30 104 H 121/86 01/03/19 20:15 108 H 113/87 01/03/19 20:00 36.7 C 109 H 26 H 100/86 93 01/03/19 19:45 108 H 109/86 Laboratory Results Laboratory Results - last 24 hr 01/03/19 01/03/19 01/03/19 13:48 13:48 19:25 WBC RBC Hgb Hct MCV MCH MCHC RDW Std Deviation RDW Coeff of Jm Plt Count MPV Immature Gran % (Auto) Neut % (Auto) Lymph % (Auto) [place] % (Auto) Eos % (Auto) Baso % (Auto) Immature Gran # (Auto) Neut # (Auto) Lymph # (Auto) [place] # (Auto) Eos # (Auto) Baso # (Auto) Toxic Vacuolation Sodium Potassium Chloride Carbon Dioxide Anion Gap BUN Creatinine Est Cr Clr Drug Dosing Est GFR ( Amer) Est GFR (Non-Af Amer) BUN/Creatinine Ratio Glucose POC Glucose Lactate 2.0 Calcium Phosphorus 3.6 Magnesium 2.3 Total Bilirubin Lactate Dehydrogenase 275 H Total Protein Albumin Pleural Fluid Source Pleural Color Pleural Appearance Pleural pH Pleural WBC Pleural RBC Pleural Polynuclear % Pleural Mononuclear % Pleural Total Protein Pleural LDH Pleural Glucose Pleural Amylase 01/03/19 01/03/19 01/03/19 19:25 20:05 20:26 WBC RBC Hgb Hct MCV MCH MCHC RDW Std Deviation RDW Coeff of Jm Plt Count MPV Immature Gran % (Auto) Neut % (Auto) Lymph % (Auto) [place] % (Auto) Eos % (Auto) Baso % (Auto) Immature Gran # (Auto) Neut # (Auto) Lymph # (Auto) [place] # (Auto) Eos # (Auto) Baso # (Auto) Toxic Vacuolation Sodium Potassium Chloride Carbon Dioxide Anion Gap BUN Creatinine Est Cr Clr Drug Dosing Est GFR ( Amer) Est GFR (Non-Af Amer) BUN/Creatinine Ratio Glucose POC Glucose Lactate Calcium Phosphorus Magnesium Total Bilirubin 0.2 Lactate Dehydrogenase Total Protein 4.8 L Albumin 1.6 L Pleural Fluid Source RIGHT LUNG Pleural Color YELLOW Pleural Appearance HAZY Pleural pH Cancelled Pleural WBC 5230 Pleural RBC < 3000 Pleural Polynuclear % 93.7 Pleural Mononuclear % 6.3 Pleural Total Protein 1.6 Pleural LDH 187 Pleural Glucose 132 Pleural Amylase 27 01/03/19 01/04/19 01/04/19 20:56 04:51 04:51 WBC 26.69 H RBC 3.77 L Hgb 12.7 L Hct 37.2 L MCV 98.7 MCH 33.7 MCHC 34.1 RDW Std Deviation 48.6 H RDW Coeff of Jm 13.5 Plt Count 306 MPV 9.0 Immature Gran % (Auto) 3.0 Neut % (Auto) 88.1 Lymph % (Auto) 3.3 [place] % (Auto) 5.0 Eos % (Auto) 0.5 Baso % (Auto) 0.1 Immature Gran # (Auto) 0.81 H Neut # (Auto) 23.50 H Lymph # (Auto) 0.88 L [place] # (Auto) 1.33 H Eos # (Auto) 0.13 Baso # (Auto) 0.04 Toxic Vacuolation 1+ Sodium 138 Potassium 3.9 Chloride 104 Carbon Dioxide 29 Anion Gap 5.0 BUN 15 Creatinine 0.46 L Est Cr Clr Drug Dosing 116.5 Est GFR ( Amer) 144.3 Est GFR (Non-Af Amer) 124.5 BUN/Creatinine Ratio 32.8 H Glucose 82 POC Glucose 103 H Lactate Calcium 7.8 L Phosphorus 2.8 Magnesium 2.1 Total Bilirubin Lactate Dehydrogenase Total Protein Albumin Pleural Fluid Source Pleural Color Pleural Appearance Pleural pH Pleural WBC Pleural RBC Pleural Polynuclear % Pleural Mononuclear % Pleural Total Protein Pleural LDH Pleural Glucose Pleural Amylase Medications Administered Home Medications albuterol sulfate [Ventolin HFA] 1 - 2 puff INHALATION .Q4-6HRS PRN 12/29/18 [History Confirmed 12/29/18] budesonide-formoterol [Symbicort] 2 puff INHALATION BID 12/29/18 [History Confirmed 12/29/18] cetirizine 10 mg PO DAILY PRN 12/29/18 [History Confirmed 12/29/18] Active Medications Acetaminophen (Tylenol) 650 mg PO Q4H PRN PRN Reason: Pain or Fever Stop: 01/28/19 22:54 Last Admin: 01/04/19 09:23 Dose: 650 mg Documented by: Al Hydrox/Mg Hydrox/Simethicone (Maalox) 15 ml PO Q4H PRN PRN Reason: Dyspepsia Stop: 01/28/19 22:54 Albuterol (Duoneb) 3 ml NEB Q4H PRN PRN Reason: SOB/WHEEZING Stop: 01/30/19 11:59 Last Admin: 01/02/19 21:46 Dose: 3 ml Documented by: Budesonide (Pulmicort Respules) 0.5 mg NEB BIDR [facility] Stop: 01/30/19 19:59 Last Admin: 01/04/19 07:13 Dose: 0.5 mg Documented by: Enoxaparin Sodium (Lovenox) 30 mg SQ QAM [facility] Stop: 01/31/19 08:59 Last Admin: 01/04/19 08:45 Dose: 30 mg Documented by: Folic Acid (Folvite) 1 mg PO QAM [facility] Stop: 01/30/19 08:59 Last Admin: 01/04/19 08:46 Dose: 1 mg Documented by: Formoterol Fumarate (Perforomist) 20 mcg NEB BIDR [facility] Stop: 01/30/19 19:59 Last Admin: 01/04/19 07:13 Dose: 20 mcg Documented by: Guaifenesin (Mucinex) 600 mg PO Q12 [facility] Stop: 01/29/19 08:59 Last Admin: 01/04/19 08:45 Dose: 600 mg Documented by: Lorazepam (Ativan) 1 mg in 2 mls @ 2 mls/min IV UD PRN; Protocol PRN Reason: EtOH Withdrawl AWSS Score 6,7 Stop: 01/30/19 20:28 Lorazepam (Ativan) 3 mg in 6 mls @ 4 mls/min IV ONCE PRN; Protocol PRN Reason: EtOH Withdrawl AWSS Score >=10 Stop: 01/30/19 20:28 Lorazepam (Ativan) 2 mg in 4 mls @ 4 mls/min IV UD PRN; Protocol PRN Reason: EtOH Withdrawl AWSS Score 8,9 Stop: 01/30/19 20:28 Levofloxacin/Dextrose (Levaquin/D5w) 750 mg in 150 mls @ 100 mls/hr IV Q24H [facility]; Protocol Stop: 01/10/19 19:59 Last Infusion: 01/03/19 23:08 Dose: Infused Documented by: Clindamycin Phosphate 600 mg/ (Dextrose) 54 mls @ 100 mls/hr IV Q8H [facility]; Protocol Stop: 01/10/19 17:59 Last Infusion: 01/04/19 05:06 Dose: Infused Documented by: Vancomycin HCl 750 mg/ Sodium (Chloride) 265 mls @ 125 mls/hr IV Q8H [facility]; Protocol Stop: 01/11/19 01:59 Last Infusion: 01/04/19 05:07 Dose: Infused Documented by: VANC PEAK (Vancomycin Peak) mls @ 0 mls/hr IV TODAY@1000 [facility] Stop: 02/03/19 09:59 Magnesium Hydroxide (Milk Of Magnesia) 30 ml PO Q12H PRN PRN Reason: Constipation Stop: 01/28/19 22:54 Megestrol Acetate (Megace) 800 mg PO DAILY [facility] Stop: 02/03/19 08:59 Last Admin: 01/04/19 09:27 Dose: 800 mg Documented by: Midodrine (Proamatine) 5 mg PO TID@0800,1200,1700 [facility] Stop: 02/03/19 11:59 Miscellaneous Information (Consult) 1 ea N/A UD PRN PRN Reason: Consult Stop: 02/02/19 16:49 Ondansetron HCl (Zofran) 4 mg IV Q6H PRN PRN Reason: Nausea Stop: 01/28/19 22:54 Polyethylene Glycol (Miralax Powder Packet) 17 gm PO DAILY PRN PRN Reason: Constipation Stop: 01/28/19 22:54 Propranolol HCl (Inderal) 10 mg PO TID [facility] Stop: 02/03/19 08:59 Last Admin: 01/04/19 09:08 Dose: 10 mg Documented by: Thiamine HCl (Vitamin B-1) 100 mg PO BID [facility] Stop: 01/31/19 20:59 Last Admin: 01/04/19 08:45 Dose: 100 mg Documented by: Tiotropium [place] (Spiriva) 1 puffs INH QAM [facility] Stop: 01/30/19 11:29 Last Admin: 01/04/19 08:45 Dose: 1 puffs Documented by: PG Care Time/CCT Total # of Minutes Spent Total Time Spent with Patient: Total time spent is greater than 50% in coordination of care (as documented) at patient's floor/unit and/or counseling patient: (1) Alcohol withdrawal Complication of substance-induced condition: uncomplicated Qualified Code(s): F10.230 - Alcohol dependence with withdrawal, uncomplicated
[2019-01-04] MEDS: ENOXAPARIN INJ 30 MG/0.3 ML SYR SQ SCH (08:45)
[2019-01-04] MEDS: guaiFENesin 600 MG TABCR PO SCH ×2 (08:45→21:02)
[2019-01-04] MEDS: TIOTROPIUM BROMIDE 5 PUFF/90 MCG INH INH SCH (08:45)
[2019-01-04] MEDS: THIAMINE HCL 100 MG TAB PO SCH ×2 (08:45→21:03)
[2019-01-04] MEDS: FOLIC ACID 1 MG TAB PO SCH (08:46)
[2019-01-04] MEDS ORDERED: AZITHROMYCIN 250 MG TAB PO SCH (09:00)
[2019-01-04] MEDS ORDERED: MIDODRINE HCL 2.5 MG TAB PO ONE (09:00)
[2019-01-04] MEDS: PROPRANOLOL HCL 10 MG TAB PO SCH ×2 (09:08→14:58)
[2019-01-04] MEDS: ACETAMINOPHEN 325 MG TAB PO PRN (09:23)
[2019-01-04] MEDS: MEGESTROL ACETATE 800 MG/20 ML UDP PO SCH (09:27)
[2019-01-04] MEDS ORDERED: [UNRECOGNIZED DRUG - OTHER] IV SCH ×2 (10:00→13:10)
[2019-01-04] MEDS ORDERED: DOCUSATE SODIUM SYRUP 100 MG/10 ML UDC PO ONE (10:30)
[2019-01-04] MEDS: MIDODRINE HCL 2.5 MG TAB PO SCH ×2 (11:31→17:59)
--- NOTE | 2019-01-04 14:13 | Pharmacy Report ---
Pharmacy Abx Dose Short Note - Date of Service January 04, 2019 - Assessment & Plan Assessment * 58 year old M receiving VANCOMYCIN + LEVOFLOXACIN + CLINDAMYCIN for treatment of sepsis likely from pneumonia (with parapneumonic effusion) * Patient does have multiple risk factors for resistant organisms: hospitalized > 48 hrs in last 90 days, current hospitalization > 5 days, alcohol abuse hx * Patient had received ceftriaxone + azithromycin without improvement before broadening to the current abx regimen * Procal 1.26 on 01/01 (not currently trending) * Pleural fluid cx pending, gram stain showing many WBC but no organisms * No BLCX's collected yet * BPs currently trending lower, last MAPs in the 60s-70s range * Predicting renal fxn difficult in this patient given h/o severe malnutrition, SCr 0.46 and BMI of 16.1 Plan Vancomycin * Loading dose 1000mg (~21mg/kg) x 1 given * Current maint dose: 750mg (~16mg/kg) IV Q 8 hrs * Goal trough level for sepsis / pulm infxn : 15 to 20 mcg/mL * Given difficulty estimating renal clearance, will obtain peak and trough levels off next dose to determine patient specific clearance Levofloxacin * eCrCl likely > 50cc/min * QTc 453 (01/02) * Continue 750mg IV Q 24 hrs for pulm indication Pharmacy will continue to follow and will adjust dose/frequency as necessary. Thank you.
--- NOTE | 2019-01-04 16:10 | Procedure Note ---
Procedure Note Date of Service January 04, 2019 Procedure Name: Administration of TPA through Chest Tube for Loculated Pneumonia (MIST2 Protocol) Procedure time out: side/site verified, patient ID confirmed, correct procedure Consent obtained: Written (Per attending's documentation.) Time of procedure: 1544 Performed by: Jose Cruz Ashraf DO Indications: Therapeutic Contraindications: None Description: Using clean technique, the chest tube was clamped proximal to the tubing connector and line was observed for air leak. There was no evidence of air leak in the chest tube. Using a 60 mL syringe, Alteplase 10mg mixed with 50mL NSS was unable to be complete instilled. Prior to my assessment of chest tube, there had been 130 mL of pleural fluid drainage from the tube itself. I was able to successfully instill the TPA with placing the patient completely in the LEFT lateral decubitus position. Complications: No immediate complications appreciated. Patient tolerated procedure: Well Post-procedure vital signs: Reviewed and stable. Coding CPT Codes Pulmonary/Thoracic - Pulmonary and Thoracic: [place] chest fibrin initial day ([id number])
[2019-01-04] MEDS ORDERED: DORNASE ALFA 5 ML in SYRINGE 25 ML IPL SCH ×2 (16:30→21:45)
[2019-01-04] MEDS ORDERED: ALTEPLASE, RECOMBINANT 10 MG in SYRINGE 50 ML IPL SCH (16:45)
--- NOTE | 2019-01-04 17:07 | Cardiology Progress Note ---
Date of Service January 04, 2019 Assessment & Plan (1) Sinus tachycardia: Her rates were normal for this afternoon. He is on propranolol. I think his lower heart rates represent improvement in his overall condition. (2) Cardiomyopathy: He has responded well to volume administration. No evidence of volume overload. As he improves clinically will need to be careful regarding additional volume administration. Need to be on lookout for pulmonary edema given his LV dysfunction. At some point during his hospitalization, when his hemodynamics have stabilized we can consider adding a standard medical regimen for his cardiomyopathy to include beta-blockade and Donnie inhibition. (3) Non-ST elevation CO (NSTEMI): Clearly demand ischemia. He could have an element of coronary disease as well given his cardiomyopathy and other risk factors. Subjective This afternoon patient claims to be feeling well. He stated that he was comfortable with his breathing. He did not report any pain. He has not report much appetite with remember eating earlier today and had a nutritional supplement by the bedside. Review of Systems Review of Systems: Per HPI Physical Exam Physical Exam: He was somnolent but easily arousable. He answers questions normally. HEENT: Pupils are equal and reactive to light and accommodation. Extraocular movements are intact. The sclerae are anicteric. Neuro: Cranial nerves intact Lungs: Coarse upper airway sounds with reduce breath sounds on the right side. No expiratory wheezing. Cardiac: Heart demonstrates a regular rate and rhythm. Normal S1 and S2. No murmurs on examination. Pulses: The patient has palpable radial pulses bilaterally that are equal in intensity Results & Data Vital Signs (Past 12 Hours) Vital Signs Temp Pulse Pulse Resp BP Pulse Ox 01/04/19 14:30 91 01/04/19 12:00 36.9 C 88 76/53 L 88 L 01/04/19 11:07 86 86/65 L 90 01/04/19 10:00 97 H 96/66 L 92 01/04/19 09:00 115 H 101/66 91 01/04/19 08:00 36.9 C 115 H 115/79 91 01/04/19 07:13 106 H 18 98 01/04/19 07:00 108 H 104/78 01/04/19 06:00 120 H 22 114/80 91 01/04/19 05:30 116 H 116/97 98 Laboratory Results Abnormal Lab Results 01/03/19 01/03/19 01/03/19 19:25 19:25 20:05 WBC RBC Hgb Hct MCV MCH MCHC RDW Std Deviation RDW Coeff of Jm Plt Count MPV Immature Gran % (Auto) Neut % (Auto) Lymph % (Auto) [place] % (Auto) Eos % (Auto) Baso % (Auto) Immature Gran # (Auto) Neut # (Auto) Lymph # (Auto) [place] # (Auto) Eos # (Auto) Baso # (Auto) Toxic Vacuolation Sodium Potassium Chloride Carbon Dioxide Anion Gap BUN Creatinine Est Cr Clr Drug Dosing Est GFR ( Amer) Est GFR (Non-Af Amer) BUN/Creatinine Ratio Glucose POC Glucose Calcium Phosphorus Magnesium Total Bilirubin 0.2 Lactate Dehydrogenase 275 H Total Protein 4.8 L Albumin 1.6 L Pleural Fluid Source Pleural Color Pleural Appearance Pleural pH Cancelled Pleural WBC Pleural RBC Pleural Polynuclear % Pleural Mononuclear % Pleural Total Protein Pleural LDH Pleural Glucose Pleural Amylase Vancomycin Peak 01/03/19 01/03/19 01/04/19 20:26 20:56 04:51 WBC 26.69 H RBC 3.77 L Hgb 12.7 L Hct 37.2 L MCV 98.7 MCH 33.7 MCHC 34.1 RDW Std Deviation 48.6 H RDW Coeff of Jm 13.5 Plt Count 306 MPV 9.0 Immature Gran % (Auto) 3.0 Neut % (Auto) 88.1 Lymph % (Auto) 3.3 [place] % (Auto) 5.0 Eos % (Auto) 0.5 Baso % (Auto) 0.1 Immature Gran # (Auto) 0.81 H Neut # (Auto) 23.50 H Lymph # (Auto) 0.88 L [place] # (Auto) 1.33 H Eos # (Auto) 0.13 Baso # (Auto) 0.04 Toxic Vacuolation 1+ Sodium Potassium Chloride Carbon Dioxide Anion Gap BUN Creatinine Est Cr Clr Drug Dosing Est GFR ( Amer) Est GFR (Non-Af Amer) BUN/Creatinine Ratio Glucose POC Glucose 103 H Calcium Phosphorus Magnesium Total Bilirubin Lactate Dehydrogenase Total Protein Albumin Pleural Fluid Source RIGHT LUNG Pleural Color YELLOW Pleural Appearance HAZY Pleural pH Pleural WBC 5230 Pleural RBC < 3000 Pleural Polynuclear % 93.7 Pleural Mononuclear % 6.3 Pleural Total Protein 1.6 Pleural LDH 187 Pleural Glucose 132 Pleural Amylase 27 Vancomycin Peak 01/04/19 01/04/19 01/04/19 04:51 11:35 13:51 WBC RBC Hgb Hct MCV MCH MCHC RDW Std Deviation RDW Coeff of Jm Plt Count MPV Immature Gran % (Auto) Neut % (Auto) Lymph % (Auto) [place] % (Auto) Eos % (Auto) Baso % (Auto) Immature Gran # (Auto) Neut # (Auto) Lymph # (Auto) [place] # (Auto) Eos # (Auto) Baso # (Auto) Toxic Vacuolation Sodium 138 Potassium 3.9 Chloride 104 Carbon Dioxide 29 Anion Gap 5.0 BUN 15 Creatinine 0.46 L Est Cr Clr Drug Dosing 116.5 Est GFR ( Amer) 144.3 Est GFR (Non-Af Amer) 124.5 BUN/Creatinine Ratio 32.8 H Glucose 82 POC Glucose Calcium 7.8 L Phosphorus 2.8 Magnesium 2.1 Total Bilirubin Lactate Dehydrogenase Total Protein Albumin Pleural Fluid Source Pleural Color Pleural Appearance Pleural pH Pleural WBC Pleural RBC Pleural Polynuclear % Pleural Mononuclear % Pleural Total Protein Pleural LDH Pleural Glucose Pleural Amylase Vancomycin Peak 10.4 L 28.1 L Diagnostic Findings To severe obtained today revealed a chest tube in place on the right with persistent pneumonia on the right side as well. PG Care Time/CCT Total # of Minutes Spent Total Time Spent with Patient: Total time spent is greater than 50% in coordination of care (as documented) at patient's floor/unit and/or counseling patient:
[2019-01-04] MEDS ORDERED: VANCOMYCIN TROUGH ONE ×3 (17:30→19:30)
[2019-01-04] MEDS ORDERED: SODIUM CHLORIDE 0.9% 1000ML 1,000 ML IV ONE (17:35)
[2019-01-04] MEDS: LEVOFLOXACIN/D5W 750 MG/150 ML BAG IV SCH (21:02)
[2019-01-04] MEDS: VANCOMYCIN HCL 1,000 MG in SODIUM CHLORIDE 0.9% 250 ML IV SCH (21:04)
--- NOTE | 2019-01-04 21:23 | Hospitalist Progress Note ---
Date of Service January 04, 2019 Assessment & Plan (1) Pneumonia involving right lung: Patient has been in the hospital since 12/29. This would be day five of hospital stay. Patient does not appear to be improving as would hope. CXR on 12/29 showed RUL pneumonia. Patient had CT scan which shows worsening infiltrates. Switched antibiotics on 01/03 to cover for pseudomonas, MRSA and anaerobes. Patient back inn ICU on 01/03 Patient appears to be improving. Chest Tube Placement to check for possible empyema. Appears to be an exudate. Will continue vanco, levaquin, clinda. - DuoNebs PRN - Sputum Gram stain and culture if he can produce one - Guaifenesin extended release 600 mg p.o. twice daily (2) Alcohol withdrawal: Patient will continue on CIWAA scale. No signs of withdrawal. (3) Cardiomyopathy: Echo was done on 12/30 for concern for afib (see below). EF is 30-35% with regional wall motion abnormalities. RV is severely dilated. 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 - Plan as above. (5) Sinus tachycardia: Initially thought to be in afib with RVR per EKG auto-read; however, he has only been in sinus tachycardia with rates in the 100-120 range. - Stopped heparin gtt - Treating pneumonia - Monitor HR (6) Non-ST elevation NM (NSTEMI): It appears patient did not suffer a NSTEMI, but perhaps demand ischemia. (7) COPD exacerbation: Possibly mild COPD exacerbation with increased shortness of breath. - See above (8) Hypotension: Multifactorial, associated with hypoalbuminemia, cachexia. BP is improving after changing antibiotics on 01/03. (9) Alcohol abuse: Patient drinks approx. 75 beers/wk. (~8-12/day). Per prior notes, had mild withdrawal during last admission. Patient has no interest in quitting and declined any further discussion on his drinking. - Continue ENEDELIA protocol as above - Vitamin supplements. (10) Current every day smoker: Cessation counseling. (11) Severe protein-calorie malnutrition: BMI is 16. Patient appears to not have a good appetite and in the hospital only prefers to drink fluid. This likely shows that patient at home gets his calories from his alcoholic beverages. His low BMI will likely work against him in his recovery. (12) Severe sepsis: Patient having signs of sepsis. WBC improving on 01/04. b/p IS IMPROVING. (13) Acute hypoxemic respiratory failure: Continues to require nasal cannula Will continue to monitor. This is from his right upper lobe pneumonia. Given his worsening, will cover for MRSA, pseUdomonas and anaerobes. (14) Empyema lung: As noted on imaging, patient has a collection of fluid around the right lung. This likely represents an empyema. Has chest tube placed. D/W special certificate dictator. (15) DVT prophylaxis: Lovenox 40mg Spent 35 minutes in management of patient. Subjective Patient reports feeling somewhat better today. He states he has more energy and was able to get into a chair (with assistance). Patient states he continues to be coughing. Review of Systems Constitutional: + fatigue and + weakness Eyes: no diplopia and no decreased night vision Ear, Nose, Mouth, Throat: no ear trauma Respiratory: + cough and + dyspnea; no change in sputum Cardiovascular: no chest pain Gastrointestinal: no abdominal pain Neurologic: no falls Psychiatric: no hopelessness Endocrine: no fatigue Physical Exam Physical Exam: Constitutional: WD/WN, vitals as above, appears calm, cold and clammy to the touch Eyes: EOM intact bilaterally; no conjunctival abnormality ENMT: external ear and nose normal, oropharynx normal Neck: trachea midline, no thyromegaly normal visual inspection Respiratory: decreased breath sounds and coarse breath sounds, especially on the right side of the lung Cardiovascular: Rate/Rhythm: regular rhythm and + tachycardic Heart Sounds: normal S1 and normal S2 Vessels: no JVD Extremities: no edema Gastrointestinal (Abdomen): Inspection/Auscultation: abdomen normal to inspection; abdomen not distended Musculoskeletal: no cyanosis or clubbing, extremities motor strength 5/5 Skin: no rashes, warm and dry Neurologic: moves all extremities and awake Psychiatric: Orientation: alert, oriented to person and cooperative Results & Data Vital Signs (Past 12 Hours) Vital Signs Temp Pulse Pulse Resp BP Pulse Ox 01/04/19 19:21 105 H 20 94 01/04/19 17:00 95 H 121/54 L 91 01/04/19 16:00 36.6 C 96 H 93/65 L 96 01/04/19 15:00 105 H 92/63 L 77 L 01/04/19 14:30 91 01/04/19 14:00 36.4 C L 96 H 76/57 L 89 L 01/04/19 13:00 95 H 80/64 L 89 L 01/04/19 12:00 36.9 C 88 76/53 L 88 L 01/04/19 11:07 86 86/65 L 90 01/04/19 10:00 97 H 96/66 L 92 PG Care Time/CCT Total # of Minutes Spent Total Time Spent with Patient: Total time spent is greater than 50% in coordination of care (as documented) at patient's floor/unit and/or counseling patient: (1) Alcohol withdrawal Complication of substance-induced condition: uncomplicated Qualified Code(s): F10.230 - Alcohol dependence with withdrawal, uncomplicated (2) Sepsis Sepsis acute organ dysfunction status: unspecified Sepsis type: sepsis due to unspecified organism Qualified Code(s): A41.9 - Sepsis, unspecified organism
[2019-01-04] MEDS: ALTEPLASE, RECOMBINANT 10 MG in SYRINGE 50 ML IPL SCH (22:13)
[2019-01-05] MEDS: ALTEPLASE, RECOMBINANT 10 MG in SYRINGE 50 ML IPL SCH (00:22)
[2019-01-05] MEDS: CLINDAMYCIN 600 MG in DEXTROSE 5% 50 ML IV SCH ×3 (02:31→17:48)
[2019-01-05] MEDS: VANCOMYCIN HCL 1,000 MG in SODIUM CHLORIDE 0.9% 250 ML IV SCH (04:52)
[2019-01-05 05:07] LABS: Creatinine Clr Calc Pharmacy 153.8 ml/min; Est GFR (African American) > 150.0; Est GFR (Non-African American) 139.3
[2019-01-05 06:43] LABS: Hematocrit (blood only) 34.5 % (42-52); Hemoglobin 11.7 g/dL (14.0-18.0); Mean Corpuscular Hemoglobin 33.6 pg (25-34); Mean Corpuscular Hgb Conc 33.9 g/dL (32-36); Mean Corpuscular Volume 99.1 fL (80-100); Mean Platelet Volume 9.4 fL (7.4-10.4); Platelet Count 252 K/uL (130-400); RDW Coefficient of Variation 13.5 % (11.5-14.5); RDW Standard Deviation 48.4 fL (36.4-46.3); Red Blood Count 3.48 M/uL (4.7-6.1); White Blood Count 25.12 K/uL (4.8-10.8)
[2019-01-05 06:48] LABS: BUN Creatinine Ratio 31.9 (10-20); Blood Urea Nitrogen 11 mg/dl (7-18); Calcium 7.5 mg/dl (8.5-10.1); Carbon Dioxide 27 mmol/L (21-32); Chloride 105 mmol/L (98-107); Est GFR (African American) > 150.0; Est GFR (Non-African American) 137.7; Glucose 75 mg/dl (70-99); Phosphorus 2.9 mg/dl (2.5-4.9); Potassium 3.6 mmol/L (3.5-5.1); Sodium 137 mmol/L (136-145)
[2019-01-05 07:02] LABS: Basophils # (auto) 0.04 K/uL (0-0.2); Basophils % (auto) 0.2 %; Eosinophils % (auto) 1.2 %; Immature Granulocytes # (auto) 0.94 K/uL (0.00-0.02); Immature Granulocytes % (auto) 3.7 %; Lymphocytes # (auto) 0.71 K/uL (1.2-3.4); Lymphocytes % (auto) 2.8 %; Neutrophils # (auto) 22.13 K/uL (1.4-6.5); Neutrophils % (auto) 88.1 %
[2019-01-05] MEDS: FORMOTEROL 20 MCG/2 ML VIAL NEB SCH ×2 (07:20→18:55)
[2019-01-05] MEDS: BUDESONIDE 0.5 MG/2 ML VIAL (PULMICORT) NEB SCH ×2 (07:20→18:55)
[2019-01-05] MEDS: guaiFENesin 600 MG TABCR PO SCH ×2 (08:04→20:26)
[2019-01-05] MEDS: THIAMINE HCL 100 MG TAB PO SCH ×2 (08:04→20:26)
[2019-01-05] MEDS: ENOXAPARIN INJ 30 MG/0.3 ML SYR SQ SCH (08:05)
[2019-01-05] MEDS: FOLIC ACID 1 MG TAB PO SCH (08:05)
[2019-01-05] MEDS: MIDODRINE HCL 2.5 MG TAB PO SCH ×3 (08:05→19:12)
[2019-01-05] MEDS: MEGESTROL ACETATE 800 MG/20 ML UDP PO SCH (08:06)
[2019-01-05] MEDS: TIOTROPIUM BROMIDE 5 PUFF/90 MCG INH INH SCH (08:07)
--- NOTE | 2019-01-05 08:19 | XRay Report ---
XR chest 1V portable HISTORY: Shortness of breath. mist protocol COMPARISON: Chest 01/04/2019. FINDINGS: No pneumothorax. The left lung is essentially clear. The heart is normal in size. There is a pigtail catheter overlying the epigastric region. This is unchanged in position. Dense consolidatio n within the right upper lobe persists. Possible cavitary focus in the right upper lobe is again note d. Interstitial opacities within the right lower lung zone are also unchanged. Trace right pleural ef fusion. Emphysema. IMPRESSION: 1. No change in the right lung consolidation. Suspect a developing cavitary focus within the right umberto ng apex. 2. Emphysema. 3. Trace right pleural effusion. Electronically signed by: Jr Tejada M.D. 01/05/2019 8:18 AM
--- NOTE | 2019-01-05 09:22 | Critical Care Progress Note ---
Date of Service January 05, 2019 Assessment & Plan (1) Acute hypoxemic respiratory failure: Reason Critically Ill: 58-year-old male with history of COPD and alcohol abuse that was admitted with pneumonia on COPD was transferred to ICU for worsening withdrawal in the setting of cardiomyopathy and transferred back to the floor 2 days ago after withdrawal symptoms improved. Now transferred back from floor for hypotension in the setting of worsening pneumonia. Neuro - [facility] ICU: Negative Alcohol withdrawalpatient no longer appears to be withdrawing and has not received Ativan since 12/31 Cardiac - Sinus tachycardiapropanolol for tachycardia related to withdrawal Respiratory - Acute hypoxic respiratory failurewas being treated for community-acquired pneumonia with azithromycin and Rocephin, however pneumonia became significantly worse on CT imaging and patient hypotensive -CT showed multifocal pneumonia in the right lung along with parapneumonic effusion -Underwent thoracentesis yesterday, cath left in for alteplase dornase treatment -Antibiotics broadened to Levaquin, clindamycin -Currently on 2 L nasal cannula -Pleurx catheter was inserted to drain effusion with 500 mL drained, removed today after minimal output -Gram stain negative on pleural fluid and preliminary cultures negative, was unable to obtain pH, follow-up final -Patient has been unable to collect sputum culture -Continue nebs GI - Sarcopenia -boost supplement added to diet - calorie count - Heart healthy diet RENAL/LYTES - Continue to monitor routine BMPs and replete electrolytes as necessary - No problems at this time ENDO - No history of thyroid disease or diabetes HEME - H&H stable, monitor with routine CBCs ID - Levaquin, Clinda for pneumonia LINES/IV ACCESS - Peripheral IVs DVT PROPHYLAXIS - Lovenox Thank you for allowing us to participate in the care of this patient. Please refer to my attending physician's documentation for any further recommendations. (2) Cardiomyopathy: (3) Pneumonia involving right lung: (4) COPD exacerbation: (5) Alcohol withdrawal: (6) Hyponatremia: Supervising Physician Co-Signing Physician Notes I have personally evaluated and examined this patient. I agree with assessment and plan of [facility]. Bedside ultrasound did not reveal significant fluid collections, there has been no growth to date out of the pleural fluid. Given these findings I am less concerned about empyema and largely we have only drained the fluid that has been able to be instilled therefore we will discontinue the mist 2 protocol and discontinued the pigtail tube. Subsequent removal of the pigtail he has a small apical pneumothorax which we will continue to monitor. Continue the current antibiotic regimen. Patient remains critically ill. Subjective This morning the patient appears improved and is sitting in chair, eating. Pleurx cath had minimal output and no effusion was seen with ultrasound and it was removed this afternoon. He remains hemodynamically stable without need for pressors. He is on nasal cannula and maintains oxygen saturations. Patient stated to downgrade from ICU status at this time. Patient denies headache, dizziness, chest pain, shortness of breath, nausea or vomiting, diarrhea. Reports mild abdominal comfort with palpation right upper quadrant unchanged from previous exams and productive cough. Review of Systems Review of Systems: All systems reviewed & are unremarkable except as noted in HPI & below Physical Exam Eyes: PERRL, conjunctivae normal, anicteric sclerae ENMT: external ear and nose normal, oropharynx normal Neck: trachea midline, no thyromegaly Respiratory: normal respiratory effort, lungs clear to auscultation + uses accessory muscles and + cough Auscultation: + crackles Cardiovascular: RRR, no murmur, no edema Heart Sounds: normal S1 and normal S2 Gastrointestinal (Abdomen): normal bowel sounds, soft, nontender, no hepatosplenomegaly Musculoskeletal: no cyanosis or clubbing, extremities motor strength 5/5 Skin: no rashes, warm and dry Psychiatric: A+Ox3, euthymic affect Orientation: oriented to person; + not oriented to place and + not oriented to time Eye Contact: + poor eye contact Results & Data Vital Signs (Past 12 Hours) Vital Signs Temp Pulse Pulse Resp BP Pulse Ox 01/05/19 08:00 108 H 01/05/19 07:22 108 H 20 95 01/05/19 04:30 108 H 108/69 94 01/05/19 04:01 96 H 95 01/05/19 04:00 36.7 C 95 H 86/59 L 95 01/05/19 03:30 106 H 104/61 77 L 01/05/19 03:01 106 H 90 01/05/19 03:00 105 H 100/70 93 01/05/19 02:30 109 H 106/72 93 01/05/19 02:01 105 H 91 01/05/19 02:00 105 H 107/75 89 L 01/05/19 01:30 95 H 99/72 L 95 01/05/19 01:01 96 H 96 01/05/19 01:00 98 H 103/74 96 01/05/19 00:30 100 H 102/72 94 01/05/19 00:01 94 H 96 01/05/19 00:00 36.8 C 95 H 100/68 96 01/04/19 23:30 105 H 102/72 98 01/04/19 23:01 102 H 93 01/04/19 23:00 102 H 99/69 L 92 01/04/19 22:30 104 H 102/65 93 01/04/19 22:01 110 H 92 01/04/19 22:00 109 H 109/77 96 01/04/19 21:30 108 H 106/74 100 PG Care Time/CCT Total # of Minutes Spent Total Time Spent with Patient: Total time spent is greater than 50% in coordination of care (as documented) at patient's floor/unit and/or counseling patient: (1) Alcohol withdrawal Complication of substance-induced condition: uncomplicated Qualified Code(s): F10.230 - Alcohol dependence with withdrawal, uncomplicated
[2019-01-05] MEDS: POTASSIUM CHLORIDE 20 MEQ TABCR PO SCH ×2 (10:37→17:48)
--- NOTE | 2019-01-05 15:30 | XRay Report ---
XR chest 1V portable CLINICAL HISTORY: chest tube removal COMPARISON STUDY: 01/05/2019 FINDINGS: The right basilar pigtail catheter has been removed. The patient remains hyperinflated. The re are persistent right lung airspace opacities. There is a small right apical pneumothorax with a pl eural separation 11 mm.. There is a suspected small right pleural effusion[ IMPRESSION: 1. Interval removal of the right-sided pigtail drainage catheter 2. Small right apical pneumothorax with pleural separation of 11 mm 3. Persistent moderately extensive right lung airspace opacities 4. Suspected small right pleural effusion Electronically signed by: Sung Moses M.D. 01/05/2019 3:29 PM
--- NOTE | 2019-01-05 16:39 | Hospitalist Progress Note ---
Date of Service January 05, 2019 Assessment & Plan (1) Pneumonia involving right lung: Patient is slowly improving. CXR on 12/29 showed RUL pneumonia. Patient had CT scan which shows worsening infiltrates. Switched antibiotics on 01/03 to cover for pseudomonas, MRSA and anaerobes. Patient back inn ICU on 01/03 Patient appears to be improving. Chest Tube Placement to check for possible empyema. Appears to be an exudate. Will continue vanco, levaquin, clinda. Continue DuoNebs PRN Sputum Gram stain and culture pending Continue Guaifenesin extended release 600 mg p.o. twice daily (2) Alcohol withdrawal: Patient will continue on CIWA scale. No signs of withdrawal. (3) Cardiomyopathy: Echo was done on 12/30 for concern for afib (see below). EF is 30-35% with regional wall motion abnormalities. RV is severely dilated. 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 - Plan as above. (5) Sinus tachycardia: Initially thought to be in afib with RVR per EKG auto-read; however, he has only been in sinus tachycardia with rates in the 100-120 range. - Stopped heparin gtt - Treating pneumonia - Monitor HR (6) Non-ST elevation MA (NSTEMI): It appears patient did not suffer a NSTEMI, but perhaps demand ischemia. (7) COPD exacerbation: Possibly mild COPD exacerbation with increased shortness of breath. - See above (8) Hypotension: Multifactorial, associated with hypoalbuminemia, cachexia. BP is improving after changing antibiotics on 01/03. (9) Alcohol abuse: Patient drinks approx. 75 beers/wk. (~8-12/day). Per prior notes, had mild withdrawal during last admission. Patient has no interest in quitting and declined any further discussion on his drinking. - Continue ENEDELIA protocol as above - Vitamin supplements. (10) Current every day smoker: Cessation counseling. (11) Severe protein-calorie malnutrition: BMI is 16. Patient appears to not have a good appetite and in the hospital only prefers to drink fluid. This likely shows that patient at home gets his calories from his alcoholic beverages. His low BMI will likely work against him in his recovery. (12) Severe sepsis: Patient having signs of sepsis. WBC improving on 01/04. b/p IS IMPROVING. (13) Acute hypoxemic respiratory failure: Continues to require nasal cannula Will continue to monitor. This is from his right upper lobe pneumonia. Given his worsening, will cover for MRSA, pseUdomonas and anaerobes. (14) Empyema lung: As noted on imaging, patient has a collection of fluid around the right lung. This likely represents an empyema. Has chest tube placed. D/W county surveyor. (15) DVT prophylaxis: Lovenox 40mg Spent 35 minutes in management of patient. Subjective Pt seen and examined at the bedside. Improving slowly, sitting up in the chair and he was able to eat on his own. Chest tube removed from the right chest per ICU team and pt remained hemodynamically stable.Afebrile.He is on nasal cannula and maintains oxygen saturations. Patient denies fever, chills, headache, dizziness, chest pain, shortness of breath, nausea or vomiting, diarrhea. The cough is persistent and productive. Review of Systems Review of Systems: The patient denies palpitations, lower extremity swelling, sore throat, fevers, chills, sweats, nausea, vomiting, diarrhea , constipation, abdominal pain, pelvic pain, blood in urine or stool, dysuria, urinary frequency or urgency, lightheadedness, dizziness, headache, memory loss, loss of consciousness, rash, abnormal bruising or bleeding, imbalance, focal or generalized weakness, numbness or tingling in arms or legs, generalized arthralgias or myalgias, back or neck pain, or night sweats. The review of systems is otherwise negative other than for that already noted above, and at least 10 systems have been reviewed. Constitutional: + fatigue and + weakness Respiratory: + cough; no change in sputum and no dyspnea Physical Exam Constitutional: WD/WN, vitals as above + frail appearing Eyes: PERRL, conjunctivae normal, anicteric sclerae ENMT: external ear and nose normal, oropharynx normal Neck: trachea midline, no thyromegaly Respiratory: Auscultation: + crackles, + wheezes, + bronchovesicular breath sounds and + egophony Cardiovascular: RRR, no murmur, no edema Chest (Breasts): normal inspection/palpation of breasts Gastrointestinal (Abdomen): normal bowel sounds, soft, nontender, no hepatosplenomegaly Musculoskeletal: no cyanosis or clubbing, extremities motor strength 5/5 Skin: no rashes, warm and dry Neurologic: patellar DTR's 2+ bilat, sensation intact Results & Data Vital Signs (Past 12 Hours) Vital Signs Pulse Pulse Resp Pulse Ox 01/05/19 08:00 108 H 01/05/19 07:22 108 H 20 95 PG Care Time/CCT Total # of Minutes Spent Total Time Spent with Patient: Total time spent is greater than 50% in coordination of care (as documented) at patient's floor/unit and/or counseling patient: (1) Alcohol withdrawal Complication of substance-induced condition: uncomplicated Qualified Code(s): F10.230 - Alcohol dependence with withdrawal, uncomplicated (2) Sepsis Sepsis acute organ dysfunction status: unspecified Sepsis type: sepsis due to unspecified organism Qualified Code(s): A41.9 - Sepsis, unspecified organism
[2019-01-05] MEDS: LEVOFLOXACIN/D5W 750 MG/150 ML BAG IV SCH (20:25)
[2019-01-06] MEDS: CLINDAMYCIN 600 MG in DEXTROSE 5% 50 ML IV SCH (02:35)
[2019-01-06 04:53] LABS: Est GFR (African American) > 150.0; Est GFR (Non-African American) 137.7
--- NOTE | 2019-01-06 07:10 | XRay Report ---
XR chest 1V portable CLINICAL HISTORY: Pneumonia. Shortness of breath. COMPARISON STUDY: 01/05/2019 FINDINGS: No pneumothorax is visualized. There is a small right pleural effusion. There are persisten t extensive right lung airspace opacities. The left lung is clear.[ IMPRESSION: 1. No evidence of pneumothorax 2. Small right pleural effusion 3. Extensive right lung airspace opacities Electronically signed by: Sung Moses M.D. 01/06/2019 7:09 AM
[2019-01-06] MEDS: BUDESONIDE 0.5 MG/2 ML VIAL (PULMICORT) NEB SCH ×2 (07:38→19:18)
[2019-01-06] MEDS: FORMOTEROL 20 MCG/2 ML VIAL NEB SCH ×2 (07:38→19:17)
[2019-01-06] MEDS: TIOTROPIUM BROMIDE 5 PUFF/90 MCG INH INH SCH (07:44)
[2019-01-06] MEDS: THIAMINE HCL 100 MG TAB PO SCH ×2 (07:44→21:04)
[2019-01-06] MEDS: MIDODRINE HCL 2.5 MG TAB PO SCH ×3 (07:45→16:57)
[2019-01-06] MEDS: guaiFENesin 600 MG TABCR PO SCH (07:45)
[2019-01-06] MEDS: FOLIC ACID 1 MG TAB PO SCH (07:46)
[2019-01-06] MEDS: ENOXAPARIN INJ 30 MG/0.3 ML SYR SQ SCH (07:46)
[2019-01-06] MEDS: MEGESTROL ACETATE 800 MG/20 ML UDP PO SCH (07:46)
--- NOTE | 2019-01-06 08:42 | Critical Care Progress Note ---
Date of Service January 06, 2019 Assessment & Plan (1) Acute hypoxemic respiratory failure: Neuro - [facility]: Negative Alcohol withdrawal: Resolved Cardiac - Sinus tachycardiaimproved with propanolol -Continuing propranolol as hope to increase weight gain, decreased to 10 mg twice daily -Checking TSH for possible hyperthyroidism Respiratory - Acute hypoxic respiratory failurewas being treated for community-acquired pneumonia with azithromycin and Rocephin, however pneumonia became significantly worse on CT imaging and patient hypotensive Right-sided parapneumonic effusion: Status post drainage -Pleural fluid remain sterile -Discontinued chest tube secondary to low output discontinued missed protocol -Antibiotics broadened to Levaquin, clindamycin -Day 4 of 10-day course -Extending course given significant lung changes and underly ing structural lung disease -Converting to oral antibiotics: Levaquin 7 more doses -Discontinuing Cleocin: There is no lung abscess nor obvious empyema risk of C. difficile with Levaquin and Cleocin outweigh benefits -Wean oxygen as tolerated -Patient has been unable to collect sputum culture -Continue nebs Iatrogenic pneumothorax right: Resolved GI - Sarcopenia -boost supplement added to diet -Megace - Heart healthy diet -Zinc supplementation -Multivitamin at night to avoid administration with Levaquin RENAL/LYTES - Continue to monitor routine BMPs and replete electrolytes as necessary ENDO - TSH pending midodrine 5mg tid Cortisol stim test ordered for tomorrow morning HEME - Leukocytosis ID - Levaquin converted to oral for 7 more doses total of 10-day course Clindamycin: Discontinued: No clear indication of lung abscess nor empyema, risk of C. difficile in concert with Levaquin outweigh benefits -Checking procalcitonin would consider recheck every 72 hours to possibly guide antibiotic therapy LINES/IV ACCESS - Peripheral IVs DVT PROPHYLAXIS - Lovenox 30 mg Patient appears to be improving albeit rather slowly. Encourage ambulation, encourage p.o. intake, stable for downgrade out of ICU. (2) Cardiomyopathy: (3) Pneumonia involving right lung: (4) COPD exacerbation: (5) Alcohol withdrawal: (6) Hyponatremia: Subjective No overnight events he is on nasal cannula and maintains oxygen saturations. Patient denies fever, chills, headache, dizziness, chest pain, shortness of breath, nausea or vomiting, diarrhea. Cough is persistent and productive. Review of Systems Review of Systems: As per the HPI Physical Exam Physical Exam: General: Alert. nontoxic. Cachectic, appears older than stated age Skin: Warm, dry, pallor Head: Atraumatic Ears, nose, mouth and throat: airway patent Cardiovascular: Normal peripheral perfusion Respiratory: no respiratory distress, rhonchorous breath sounds Gastrointestinal: Non distended Musculoskeletal: No deformity Results & Data Vital Signs (Past 12 Hours) Vital Signs Temp Pulse Pulse Resp BP Pulse Ox 01/06/19 07:38 106 H 22 95 01/06/19 06:01 95 H 95 01/06/19 06:00 98 H 102/75 96 01/06/19 05:30 103 H 105/75 91 01/06/19 05:01 104 H 93 01/06/19 05:00 105 H 105/73 92 01/06/19 04:30 104 H 102/75 97 01/06/19 04:01 102 H 98 01/06/19 04:00 36.8 C 101 H 95/71 L 96 01/06/19 03:30 101 H 96/64 L 99 01/06/19 03:01 106 H 87 L 01/06/19 03:00 150 H 101/67 87 L 01/06/19 02:30 104 H 107/70 94 01/06/19 02:01 103 H 94 01/06/19 02:00 103 H 101/69 95 01/06/19 01:30 108 H 89/70 L 93 01/06/19 01:01 99 H 88 L 01/06/19 01:00 101 H 104/71 88 L 01/06/19 00:31 97 H 103/67 94 01/06/19 00:01 101 H 97 01/06/19 00:00 36.6 C 99 H 99/67 L 98 01/05/19 23:30 99 H 100/71 96 01/05/19 23:01 99 H 96 01/05/19 23:00 100 H 101/67 96 01/05/19 22:31 99 H 102/68 96 01/05/19 22:01 103 H 92 01/05/19 22:00 106 H 101/66 94 01/05/19 21:30 106 H 97/60 L 94 01/05/19 21:01 99 H 96 01/05/19 21:00 100 H 91/65 L 96 01/05/19 20:31 105 H 97/74 L 95 PG Care Time/CCT Total # of Minutes Spent Total Time Spent with Patient: Total time spent is greater than 50% in coordination of care (as documented) at patient's floor/unit and/or counseling patient: (1) Alcohol withdrawal Complication of substance-induced condition: uncomplicated Qualified Code(s): F10.230 - Alcohol dependence with withdrawal, uncomplicated
[2019-01-06] MEDS: PROPRANOLOL HCL 10 MG TAB PO SCH ×2 (09:34→21:02)
[2019-01-06] MEDS: ZINC SULFATE 220 MG CAPSULE PO SCH (09:34)
[2019-01-06] MEDS ORDERED: SODIUM CHLORIDE 0.65% NA SOLN 45 ML (OCEAN) ONE (11:53)
--- NOTE | 2019-01-06 14:50 | Hospitalist Progress Note ---
Date of Service January 06, 2019 Assessment & Plan (1) Pneumonia involving right lung: Patient is slowly improving. Patient is just transferred from MICU to the floor. Patient has been treated for right upper lobe pneumonia. Patient had CT scan which shows worsening infiltrates. Patient's white blood cell count today is 25.12. We will add cefepime and metronidazole to Levaquin and downgrade as patient is improving. Chest Tube removed for possible empyema yesterday. Appears to be an exudate. Continue DuoNebs PRN. Blood cultures so far negative, sputum Gram stain negative acid-fast negative. Monitor daily CBC CMP replenish electrolytes Strict in and out Daily weight weight Continue Guaifenesin extended release 600 mg p.o. twice daily (2) Alcohol withdrawal: Patient will continue on CIWA scale. No signs of withdrawal. (3) Cardiomyopathy: Echo was done on 12/30 for concern for afib (see below). EF is 30-35% with regional wall motion abnormalities. RV is severely dilated. 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 There are regional wall motion abnormalities as specified. Right ventricle is moderately to severely dilated. The right ventricle systolic function is moderately reduced. The right atrium is moderately dilated. There is a moderate tricuspid regurgitation. Right ventricle systolic pressure is elevated to 30-40. (4) Sepsis: Sepsis due to pneumonia growing right upper lobe. - Plan as above. (5) Sinus tachycardia: Initially thought to be in afib with RVR per EKG auto-read; however, he has only been in sinus tachycardia with rates in the 100-120 range. - Stopped heparin gtt - Treating pneumonia - Monitor HR (6) Non-ST elevation CA (NSTEMI): It appears patient did not suffer a NSTEMI, but perhaps demand ischemia. (7) COPD exacerbation: Possibly mild COPD exacerbation with increased shortness of breath. - See above (8) Hypotension: Multifactorial, associated with hypoalbuminemia, cachexia. BP is improving after changing antibiotics on 01/03. (9) Alcohol abuse: Patient drinks approx. 75 beers/wk. (~8-12/day). Per prior notes, had mild withdrawal during last admission. Patient has no interest in quitting and declined any further discussion on his drinking. - Continue CIWA protocol as above - Vitamin supplements. (10) Current every day smoker: Cessation counseling. (11) Severe protein-calorie malnutrition: BMI is 16. Patient appears to not have a good appetite and in the hospital only prefers to drink fluid. This likely shows that patient at home gets his calories from his alcoholic beverages. His low BMI will likely work against him in his recovery. (12) Severe sepsis: Patient having signs of sepsis. WBC improving on 01/04. b/p IS IMPROVING. (13) Acute hypoxemic respiratory failure: Continues to require nasal cannula Will continue to monitor. This is from his right upper lobe pneumonia. Given his worsening, will cover for MRSA, pseUdomonas and anaerobes. (14) Empyema lung: As noted on imaging, patient has a collection of fluid around the right lung. This likely represents an empyema. Has chest tube placed. D/W career developer. (15) DVT prophylaxis: Lovenox 40mg Subjective Seen and examined at the bedside. He has been just transferred from the MICU to the floor. He continues to require 4 L of supplemental oxygen via nasal cannula. She continues to complain of productive cough. His white blood cell count trending down but is still high above 25.12. Patient is cachectic and malnourished most likely due to habitual abuse. In person patient is very pleasant , alert and oriented x3. Patient said he had a lunch and his appetite is slowly improving. Patient denies fever, chills, headache, chest pain, shortness of breath, frequency, urgency, abdominal pain, nausea, vomiting, hemoptysis, hematochezia, melena. Review of Systems Review of Systems: All systems reviewed & are unremarkable except as noted in HPI & below Constitutional: + fatigue and + weakness Respiratory: + cough; no change in sputum and no dyspnea Physical Exam Constitutional: WD/WN, vitals as above + frail appearing Eyes: PERRL, conjunctivae normal, anicteric sclerae ENMT: external ear and nose normal, oropharynx normal Neck: trachea midline, no thyromegaly Respiratory: Auscultation: + crackles, + wheezes, + bronchovesicular breath sounds and + egophony Cardiovascular: RRR, no murmur, no edema Chest (Breasts): normal inspection/palpation of breasts Gastrointestinal (Abdomen): normal bowel sounds, soft, nontender, no hepatosplenomegaly Musculoskeletal: no cyanosis or clubbing, extremities motor strength 5/5 Skin: no rashes, warm and dry Neurologic: patellar DTR's 2+ bilat, sensation intact Results & Data Vital Signs (Past 12 Hours) Vital Signs Temp Pulse Pulse Resp BP Pulse Ox 01/06/19 10:44 36.7 C 87 17 91/64 L 01/06/19 10:00 90 98/73 L 95 01/06/19 09:30 107 H 95/64 L 95 01/06/19 09:01 109 H 89 L 01/06/19 09:00 109 H 115/75 95 01/06/19 08:30 87 95/67 L 98 01/06/19 08:01 100 H 94 01/06/19 08:00 36.8 C 101 H 111/78 94 01/06/19 07:38 106 H 22 95 01/06/19 07:30 103 H 110/75 96 01/06/19 07:01 91 H 97 01/06/19 06:01 95 H 95 01/06/19 06:00 98 H 102/75 96 01/06/19 05:30 103 H 105/75 91 01/06/19 05:01 104 H 93 01/06/19 05:00 105 H 105/73 92 01/06/19 04:30 104 H 102/75 97 01/06/19 04:01 102 H 98 01/06/19 04:00 36.8 C 101 H 95/71 L 96 01/06/19 03:30 101 H 96/64 L 99 01/06/19 03:01 106 H 87 L 01/06/19 03:00 150 H 101/67 87 L PG Care Time/CCT Total # of Minutes Spent Total Time Spent with Patient: Total time spent is greater than 50% in coordination of care (as documented) at patient's floor/unit and/or counseling patient: (1) Alcohol withdrawal Complication of substance-induced condition: uncomplicated Qualified Code(s): F10.230 - Alcohol dependence with withdrawal, uncomplicated (2) Sepsis Sepsis acute organ dysfunction status: unspecified Sepsis type: sepsis due to unspecified organism Qualified Code(s): A41.9 - Sepsis, unspecified organism
[2019-01-06] MEDS ORDERED: DiphenhydrAMINE HCL 50 MG/ML VIAL IV PRN (15:24)
[2019-01-06] MEDS ORDERED: CEFEPIME 2,000 MG/20 ML VIAL IV SCH (16:00)
[2019-01-06] MEDS: metroNIDAZOLE 500 MG/100 ML BAG IV SCH (16:56)
[2019-01-06] MEDS: CEFEPIME 2,000 MG in SYRINGE 7.5 ML IV SCH (16:56)
[2019-01-06] MEDS: LACTOBACILLUS ACIDOPHILUS (FLORANEX) TAB PO SCH ×2 (16:56→21:01)
[2019-01-06] MEDS ORDERED: levoFLOXacin 750 MG TAB PO SCH (20:00)
[2019-01-06] MEDS: MULTIVITAMIN TAB PO SCH (21:03)
[2019-01-07] MEDS: metroNIDAZOLE 500 MG/100 ML BAG IV SCH ×4 (00:41→23:52)
[2019-01-07] MEDS: CEFEPIME 2,000 MG in SYRINGE 7.5 ML IV SCH ×4 (00:41→23:44)
[2019-01-07] MEDS: BUDESONIDE 0.5 MG/2 ML VIAL (PULMICORT) NEB SCH ×2 (06:52→18:15)
[2019-01-07] MEDS: FORMOTEROL 20 MCG/2 ML VIAL NEB SCH ×2 (06:52→18:15)
[2019-01-07] MEDS ORDERED: COSYNTROPIN 1 MCG in SYRINGE 0 ML IV ONE (08:00)
[2019-01-07 08:13] LABS: Hematocrit (blood only) 36.5 % (42-52); Mean Corpuscular Hemoglobin 34.2 pg (25-34); Mean Corpuscular Hgb Conc 35.6 g/dL (32-36); Mean Corpuscular Volume 96.1 fL (80-100); Platelet Count 278 K/uL (130-400); RDW Coefficient of Variation 13.5 % (11.5-14.5); RDW Standard Deviation 47.5 fL (36.4-46.3); White Blood Count 28.27 K/uL (4.8-10.8)
[2019-01-07] MEDS: THIAMINE HCL 100 MG TAB PO SCH ×2 (08:24→20:53)
[2019-01-07] MEDS: TIOTROPIUM BROMIDE 5 PUFF/90 MCG INH INH SCH (08:24)
[2019-01-07] MEDS: MEGESTROL ACETATE 800 MG/20 ML UDP PO SCH (08:24)
[2019-01-07] MEDS: FOLIC ACID 1 MG TAB PO SCH (08:25)
[2019-01-07] MEDS: ENOXAPARIN INJ 30 MG/0.3 ML SYR SQ SCH (08:25)
[2019-01-07] MEDS: MIDODRINE HCL 2.5 MG TAB PO SCH ×3 (08:25→16:49)
[2019-01-07] MEDS: ZINC SULFATE 220 MG CAPSULE PO SCH (08:25)
[2019-01-07] MEDS: PROPRANOLOL HCL 10 MG TAB PO SCH ×2 (08:26→20:54)
[2019-01-07] MEDS: LACTOBACILLUS ACIDOPHILUS (FLORANEX) TAB PO SCH ×4 (08:26→20:53)
[2019-01-07 08:35] LABS: Basophils # (auto) 0.03 K/uL (0-0.2); Basophils % (auto) 0.1 %; Eosinophils # (auto) 0.21 K/uL (0-0.5); Eosinophils % (auto) 0.7 %; Immature Granulocytes # (auto) 0.72 K/uL (0.00-0.02); Immature Granulocytes % (auto) 2.5 %; Lymphocytes # (auto) 0.71 K/uL (1.2-3.4); Lymphocytes % (auto) 2.5 %; Monocytes # (auto) 1.27 K/uL (0.11-0.59); Monocytes % (auto) 4.5 %; Neutrophils # (auto) 25.33 K/uL (1.4-6.5); Neutrophils % (auto) 89.7 %
[2019-01-07 08:40] LABS: Creatinine Clr Calc Pharmacy 146.2 ml/min; Est GFR (African American) > 150.0; Est GFR (Non-African American) 134.7
[2019-01-07] MEDS ORDERED: VANCOMYCIN CONSULT ACTIVE PRN ×2 (15:12→16:21)
--- NOTE | 2019-01-07 15:12 | Hospitalist Progress Note ---
Date of Service January 07, 2019 Assessment & Plan (1) Pneumonia involving right lung: Patient has been treated for right upper lobe pneumonia and empyema. WBC are increasing. Discussed with Dr. Heydi Amos on infectious diseases and she recommended to put patient on vancomycin again because in the past he responded well and continue cefepime and metronidazole. We will repeat chest x- rays and procalcitonin with lactate. Patient had chest tube removed on 01/05. Appears to be an exudate. Continue DuoNebs PRN. Blood cultures so far negative, sputum Gram stain negative acid-fast negative. Monitor daily CBC CMP replenish electrolytes Strict in and out Daily weight weight Continue Guaifenesin extended release 600 mg p.o. twice daily (2) Alcohol withdrawal: Patient will continue on CIWA scale. No signs of withdrawal. (3) Cardiomyopathy: Echo was done on 12/30 for concern for afib (see below). EF is 30-35% with regional wall motion abnormalities. RV is severely dilated. 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 There are regional wall motion abnormalities as specified. Right ventricle is moderately to severely dilated. The right ventricle systolic function is moderately reduced. The right atrium is moderately dilated. There is a moderate tricuspid regurgitation. Right ventricle systolic pressure is elevated to 30-40. (4) Sepsis: Sepsis due to pneumonia growing right upper lobe. - Plan as above. (5) Sinus tachycardia: Initially thought to be in afib with RVR per EKG auto-read; however, he has only been in sinus tachycardia with rates in the 100-120 range. - Stopped heparin gtt - Treating pneumonia - Monitor HR (6) Non-ST elevation IN (NSTEMI): It appears patient did not suffer a NSTEMI, but perhaps demand ischemia. (7) COPD exacerbation: Possibly mild COPD exacerbation with increased shortness of breath. - See above (8) Hypotension: Multifactorial, associated with hypoalbuminemia, cachexia. BP is improving after changing antibiotics on 01/03. (9) Alcohol abuse: Patient drinks approx. 75 beers/wk. (~8-12/day). Per prior notes, had mild withdrawal during last admission. Patient has no interest in quitting and declined any further discussion on his drinking. - Continue CIWA protocol as above - Vitamin supplements. (10) Current every day smoker: Cessation counseling. (11) Severe protein-calorie malnutrition: BMI is 16. Patient appears to not have a good appetite and in the hospital only prefers to drink fluid. This likely shows that patient at home gets his calories from his alcoholic beverages. His low BMI will likely work against him in his recovery. (12) Severe sepsis: Patient having signs of sepsis. WBC improving on 01/04. b/p IS IMPROVING. (13) Acute hypoxemic respiratory failure: Continues to require nasal cannula Will continue to monitor. This is from his right upper lobe pneumonia. Given his worsening, will cover for MRSA, pseUdomonas and anaerobes. (14) Empyema lung: As noted on imaging, patient has a collection of fluid around the right lung. This likely represents an empyema. Has chest tube placed. D/W acute dialysis registered nurse. (15) DVT prophylaxis: Lovenox 40mg Subjective Seen and examined at the bedside. Patient currently clinically looks better than his labs. His blood cell count today is 28.7 from 20.5.12 yesterday when he was transferred from the MICU to the floor. Continues to be on 4.5 L of supplemental oxygen via nasal cannula and saturation is above 92%. Patient is not short of breath but complains of productive cough. Patient is cachectic and malnourished most likely due to habitual alcohol abuse. In person patient is very pleasant , alert and oriented x3. Patient said he had a lunch and his appetite is slowly improving. Patient denies fever, chills, headache, chest pain, shortness of breath, frequency, urgency, abdominal pain, nausea, vomiting, hemoptysis, hematochezia, melena. Review of Systems Review of Systems: All systems reviewed & are unremarkable except as noted in HPI & below Constitutional: + fatigue and + weakness Respiratory: + cough; no change in sputum and no dyspnea Physical Exam Constitutional: WD/WN, vitals as above + frail appearing Eyes: PERRL, conjunctivae normal, anicteric sclerae ENMT: external ear and nose normal, oropharynx normal Neck: trachea midline, no thyromegaly Respiratory: Auscultation: + crackles, + wheezes, + bronchovesicular breath sounds and + egophony dullness on the right lower lobe Cardiovascular: RRR, no murmur, no edema Chest (Breasts): normal inspection/palpation of breasts Gastrointestinal (Abdomen): normal bowel sounds, soft, nontender, no hepatosplenomegaly Musculoskeletal: no cyanosis or clubbing, extremities motor strength 5/5 Skin: no rashes, warm and dry Neurologic: patellar DTR's 2+ bilat, sensation intact Results & Data Vital Signs (Past 12 Hours) Vital Signs Temp Pulse Resp BP Pulse Ox 01/07/19 14:55 36.8 C 72 20 107/74 93 01/07/19 07:51 36.4 C L 98 H 20 126/86 91 01/07/19 06:52 94 H 16 97 PG Care Time/CCT Total # of Minutes Spent Total Time Spent with Patient: Total time spent is greater than 50% in coordination of care (as documented) at patient's floor/unit and/or counseling patient: (1) Alcohol withdrawal Complication of substance-induced condition: uncomplicated Qualified Code(s): F10.230 - Alcohol dependence with withdrawal, uncomplicated (2) Sepsis Sepsis acute organ dysfunction status: unspecified Sepsis type: sepsis due to unspecified organism Qualified Code(s): A41.9 - Sepsis, unspecified organism
--- NOTE | 2019-01-07 15:36 | XRay Report ---
XR chest 1V portable CLINICAL HISTORY: worsening empyema dyspnea COMPARISON STUDY: 01/06/2019 FINDINGS: Unchanging study. Diffuse parenchymal infiltrative change with right hemithorax unaltered. Left lung remains clear. Diaphragms are smooth. IMPRESSION: 1. Unchanged exam compared to prior 2. Diffuse right hemithoracic infiltrative/consolidative process. 3. Left lung remains clear. The above report was generated using voice recognition software. It may contain grammatical, syntax or spelling errors. Electronically signed by: Maximilian Knox M.D. 01/07/2019 3:35 PM
--- NOTE | 2019-01-07 16:24 | Pharmacy Report ---
Pharmacy Abx Initial Consult - Date of Service January 07, 2019 - Pharmacy Dosing Scope Date of Consult: 01/07/19 Consultation requested by: Dr. Montes Pharmacy is consulted to initiate Vancomcyin IV dosing therapy, order appropriate labs and adjust drug dose/frequency. - Subjective The patient is a 58 year old M admitted on 12/29/18 22:14. - Objective Height: 5 ft 7 in Weight: 48.2 kg (BMI 16.6) Vital Signs (Past 12hrs): Vital Signs Temp Pulse Resp BP Pulse Ox 01/07/19 14:55 36.8 C 72 20 107/74 93 01/07/19 07:51 36.4 C L 98 H 20 126/86 91 01/07/19 06:52 94 H 16 97 Lab Results (24hrs): Laboratory Tests (24 Hours) 01/07/19 01/07/19 01/07/19 07:59 07:59 07:57 WBC 28.27 H Neut # (Auto) 25.33 H Creatinine 0.38 L Est Cr Clr Drug Dosing 146.2 Procalcitonin 0.28 Micro Results: 01/03/19 20:26 Gram Stain - Final Pleural Fluid 01/03/19 20:26 Acid Fast Bacilli Smear - Final Pleural Fluid - Risk Factors for Resistance * Hospitalization for 48 hours or more within the past 90 days * Current hospitalization > 5 days * Antimicrobial use within the last 90 days Levaquin,Ceftriaxone,Azithromcyin,Cefepime,Metronidazole - Assessment & Plan Assessment 58 year old M hx of COPD. Patient has been on Cefepime and Flagyl (which are to continue) but reinitiating Vancomycin per ID recommendations. Questionable that patient may have an empyema. Plan Vancomycin for treatment of pneumonia (? empyema) Vancomycin IV * Estimated PK Parameters: Vd 0.7 L/kg, Shamar .104 hr-1, t1/2 6.7 hr * Loading dose: 1000 mg (21 mg/kg) * Maintenance dose: 750 mg IV (15.5 mg/kg) every 8 hours * Goal trough level for pneumonia : 15 to 20 mcg/mL * Trough level ordered for 01/08/19 Pharmacy will continue to follow and will adjust dose/frequency as necessary. Thank you.
[2019-01-07] MEDS ORDERED: VANCOMYCIN HCL 1,000 MG in SODIUM CHLORIDE 0.9% 250 ML IV SCH (16:30)
[2019-01-07] MEDS: MULTIVITAMIN TAB PO SCH (20:57)
[2019-01-07] MEDS: ACETAMINOPHEN 325 MG TAB PO PRN (22:02)
[2019-01-08] MEDS: VANCOMYCIN HCL 750 MG in SODIUM CHLORIDE 0.9% 250 ML IV SCH ×3 (01:00→17:18)
[2019-01-08] MEDS: BUDESONIDE 0.5 MG/2 ML VIAL (PULMICORT) NEB SCH ×6 (07:06→19:41)
[2019-01-08] MEDS: FORMOTEROL 20 MCG/2 ML VIAL NEB SCH ×6 (07:06→19:41)
[2019-01-08] MEDS: CEFEPIME 2,000 MG in SYRINGE 7.5 ML IV SCH ×2 (07:58→09:26)
[2019-01-08] MEDS: metroNIDAZOLE 500 MG/100 ML BAG IV SCH ×2 (07:58→09:26)
[2019-01-08] MEDS: LACTOBACILLUS ACIDOPHILUS (FLORANEX) TAB PO SCH ×4 (08:00→22:20)
[2019-01-08] MEDS ORDERED: COSYNTROPIN 1 MCG in SYRINGE 0 ML IV ONE (08:00)
[2019-01-08] MEDS: FOLIC ACID 1 MG TAB PO SCH (08:00)
[2019-01-08] MEDS: PROPRANOLOL HCL 10 MG TAB PO SCH ×2 (08:01→22:19)
[2019-01-08] MEDS: MIDODRINE HCL 2.5 MG TAB PO SCH ×3 (08:01→17:36)
[2019-01-08] MEDS: ENOXAPARIN INJ 30 MG/0.3 ML SYR SQ SCH (08:02)
[2019-01-08] MEDS: TIOTROPIUM BROMIDE 5 PUFF/90 MCG INH INH SCH (08:03)
[2019-01-08] MEDS: ZINC SULFATE 220 MG CAPSULE PO SCH (08:04)
[2019-01-08] MEDS: THIAMINE HCL 100 MG TAB PO SCH ×2 (08:04→22:20)
[2019-01-08] MEDS: MEGESTROL ACETATE 800 MG/20 ML UDP PO SCH (08:06)
[2019-01-08] MEDS: ALUMINUM/MAGNESIUM SUSP 30 ML UDC PO PRN (10:05)
--- NOTE | 2019-01-08 11:19 | Infectious Disease Consult ---
Date of Consultation January 08, 2019 Assessment & Plan (1) Empyema: continue abx for now. Suspect culture negative due to several days of IV prior to fluid being obtained/cultured. would suggest thoracic surgery eval for ongoing empyema and persistent leukocytosis on several days of emperic broad spectrum abx. Agree with abx for now, also concerned for anaerobes with h/o etoh and concern for aspiration. will change to vanco and ertapenem. will follow. History of Present Illness Attending Physician: Sheri Montes MD pt admitted 10 days ago with SOB multiple cxr and ct showing complete right lung consolidation. was initally in ICU due to afib with RVR found on admission and concern for ETOH withdrawal. He briefly had pigtail cath, placed 01/03, now removed. He had several days of IV abx starting with ctx and azthiro on admission 12/29, broadened to vanco, cefepime and gay more recently. tolerating well. culture from 01/03 is negative as is afb culture. He had a wbc of 36 on admission, overall improving but remains in 20s. His vanco was briefly stopped upon transition from ICU, his wbc went from 26 to 28, for these reason vanco was restarted yesterday and ID was consulted. no blood culture done this admission. CXR yesterday still with right lung consolidation, unchanged. On exam, pt feels overall better but is weak. he has NC O2, he denies any sob, demarco, cp. He continues with cough, says mostly nonproductive denies blood. no abd pain, no n/v/d. no gu symptoms. tolerating abx. has been afebrile since admission. wbc today is 28, creat 0.3 UA negative on admission. Allergies Allergy/AdvReac Type Severity Reaction Status Date / Time erythromycin base Allergy Unknown Unknown Verified 12/29/18 21:10 Nitrate Analogues Allergy Unknown Difficulty Verified 12/29/18 21:10 Breathing Penicillins Allergy Unknown Unknown Verified 12/29/18 21:10 Home Medications Home Medications Medication Instructions Recorded Confirmed Type albuterol sulfate [Ventolin HFA] 1 - 2 puff INHALATION .Q4-6HRS PRN 12/29/18 12/29/18 History budesonide-formoterol [Symbicort] 2 puff INHALATION BID 12/29/18 12/29/18 History cetirizine 10 mg PO DAILY PRN 12/29/18 12/29/18 History Patient History Medical History GI bleed (Resolved) Pneumonia (Resolved) COPD (chronic obstructive pulmonary disease) (Chronic) Abdominal mass removed at [facility] - he cannot recall details; he was in 3rd grade Avascular necrosis of hip right Surgical History Hx of appendectomy Family History Father Hairy cell leukemia Mother Multiple myeloma Social History Preferred Language: Setswana Communication Ability: Effective Beliefs That Will Affect Care: None marital status: Single marital status details: no children Current Living Situation: Alone Current Living Situation Comment: lives in [place] by himself current occupational status: disabled Other Information That Helps Us Care for You: No other: 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 Feels Safe at Home: Yes Smoking Status: Current every day smoker Tobacco Type: cigarettes ; Age Started Using Tobacco: 16 ; packs per day: 1 ; Cigarettes Per Day: 20 ; Do You Dip or Chew Tobacco: Yes ; Hx Alcohol Use: Yes Alcohol type: beer Alcohol Intake Frequency: Daily Alcohol Intake Frequency Comment: 4-6 beers/day Hx Substance Use: No Review of Systems Review of Systems: All systems reviewed & are unremarkable except as noted in HPI & below Physical Exam Constitutional: + thin, + cachectic and + frail appearing; no acute distress Eyes: PERRL, conjunctivae normal, anicteric sclerae ENMT: external ear and nose normal, oropharynx normal Mouth: + poor dentition Neck: normal visual inspection Respiratory: normal respiratory effort; no respiratory distress and no labored breathing Auscultation: + diminished lung sounds and + rhonchi Cardiovascular: Rate/Rhythm: regular rate and regular rhythm Gastrointestinal (Abdomen): normal bowel sounds, soft, nontender, no hepatosplenomegaly Musculoskeletal: no cyanosis or clubbing, extremities motor strength 5/5 Skin: no rashes, warm and dry Psychiatric: A+Ox3, euthymic affect Results & Data Vital Signs (Past 12 Hours) Vital Signs Temp Pulse Resp BP Pulse Ox 01/08/19 07:29 36.6 C 89 16 113/76 91 01/08/19 07:07 92 H 16 91 Laboratory Results Microbiology 01/03/19 20:26 Pleural Fluid Gram Stain - Final 01/03/19 20:26 Pleural Fluid Aerobic and Anaerobic Culture - Final No growth 01/03/19 20:26 Pleural Fluid Acid Fast Bacilli Smear - Final 01/03/19 20:26 Pleural Fluid Acid Fast Bacilli Culture - Preliminary No Acid-Fast Bacilli Isolated - Report 1, Additional Report to Follow. PG Care Time/CCT Total # of Minutes Spent Total Time Spent with Patient: Total time spent is greater than 50% in coordination of care (as documented) at patient's floor/unit and/or counseling patient:
[2019-01-08] MEDS: ERTAPENEM SODIUM 1,000 MG in SODIUM CHLORIDE 0.9% 50 ML IV SCH (12:14)
[2019-01-08] MEDS: ONDANSETRON INJ 2 MG/ML 2 ML VIAL IV PRN (12:39)
[2019-01-08] MEDS: ACETAMINOPHEN 325 MG TAB PO PRN (13:39)
--- NOTE | 2019-01-08 15:45 | Hospitalist Progress Note ---
Date of Service January 08, 2019 Assessment & Plan (1) Pneumonia involving right lung: Patient has been treated for right upper lobe pneumonia and empyema. Labs pending Appreciates infectious diseases consult. Continue with vancomycin and ertapenem per ID recommendation for empyema possible aspiration pneumonia. Trend down white blood cell count. Patient had chest tube removed on 01/05. Appears to be an exudate. Continue DuoNebs PRN. Blood cultures so far negative, sputum Gram stain negative acid-fast negative. Monitor daily CBC CMP replenish electrolytes Strict in and out Daily weight weight Continue Guaifenesin extended release 600 mg p.o. twice daily (2) Alcohol withdrawal: Patient will continue on CIWA scale. No signs of withdrawal. (3) Cardiomyopathy: Echo was done on 12/30 for concern for afib (see below). EF is 30-35% with regional wall motion abnormalities. RV is severely dilated. 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 There are regional wall motion abnormalities as specified. Right ventricle is moderately to severely dilated. The right ventricle systolic function is moderately reduced. The right atrium is moderately dilated. There is a moderate tricuspid regurgitation. Right ventricle systolic pressure is elevated to 30-40. (4) Sepsis: Sepsis due to pneumonia growing right upper lobe. - Plan as above. (5) Sinus tachycardia: Initially thought to be in afib with RVR per EKG auto-read; however, he h as only been in sinus tachycardia with rates in the 100-120 range. - Stopped heparin gtt - Treating pneumonia - Monitor HR (6) Non-ST elevation [place] (NSTEMI): It appears patient did not suffer a NSTEMI, but perhaps demand ischemia. (7) COPD exacerbation: Possibly mild COPD exacerbation with increased shortness of breath. - See above (8) Hypotension: Multifactorial, associated with hypoalbuminemia, cachexia. BP is improving after changing antibiotics on 01/03. (9) Alcohol abuse: Patient drinks approx. 75 beers/wk. (~8-12/day). Per prior notes, had mild withdrawal during last admission. Patient has no interest in quitting and declined any further discussion on his drinking. - Continue CIWA protocol as above - Vitamin supplements. (10) Current every day smoker: Cessation counseling. (11) Severe protein-calorie malnutrition: BMI is 16. Patient appears to not have a good appetite and in the hospital only prefers to drink fluid. This likely shows that patient at home gets his calories from his alcoholic beverages. His low BMI will likely work against him in his recovery. (12) Severe sepsis: Patient having signs of sepsis. WBC improving on 01/04. b/p IS IMPROVING. (13) Acute hypoxemic respiratory failure: Continues to require nasal cannula Will continue to monitor. This is from his right upper lobe pneumonia. Given his worsening, will cover for MRSA, pseUdomonas and anaerobes. (14) Empyema lung: As noted on imaging, patient has a collection of fluid around the right lung. This likely represents an empyema. Has chest tube placed. 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 (15) DVT prophylaxis: Lovenox 40mg Subjective Seen and examined at the bedside. Patient reports doing better. Labs are pendi ng. Appreciate infectious diseases consult and recommendation to continue with vancomycin and ertapenem and discontinue cefepime and metronidazole for possible aspiration pneumonia and empyema associated with it. Consult with thoracic surgery pending to evaluate empyema. Continues to be on 4.5 L of supplemental oxygen via nasal cannula and saturation is above 92%. Patient is not short of breath but complains of productive cough. Patient is cachectic and malnourished most likely due to habitual alcohol abuse. In person patient is very pleasant , alert and oriented x3. Patient said he had a lunch and his appetite is slowly improving. Patient denies fever, chills, headache, chest pain, shortness of breath, frequency, urgency, abdominal pain, nausea, vomiting, hemoptysis, hematochezia, melena. Review of Systems Review of Systems: All systems reviewed & are unremarkable except as noted in HPI & below Constitutional: + fatigue and + weakness Respiratory: + cough; no change in sputum and no dyspnea Physical Exam Constitutional: WD/WN, vitals as above + frail appearing Eyes: PERRL, conjunctivae normal, anicteric sclerae ENMT: external ear and nose normal, oropharynx normal Neck: trachea midline, no thyromegaly Respiratory: Auscultation: + crackles, + wheezes, + bronchovesicular breath sounds and + egophony Cardiovascular: RRR, no murmur, no edema Chest (Breasts): normal inspection/palpation of breasts Gastrointestinal (Abdomen): normal bowel sounds, soft, nontender, no hepatosplenomegaly Musculoskeletal: no cyanosis or clubbing, extremities motor strength 5/5 Skin: no rashes, warm and dry Neurologic: patellar DTR's 2+ bilat, sensation intact Results & Data Vital Signs (Past 12 Hours) Vital Signs Temp Pulse Resp BP BP Pulse Ox 01/08/19 15:24 36.9 C 91 H 18 101/73 92 01/08/19 07:29 36.6 C 89 16 113/76 91 01/08/19 07:07 92 H 16 91 PG Care Time/CCT Total # of Minutes Spent Total Time Spent with Patient: Total time spent is greater than 50% in coordination of care (as documented) at patient's floor/unit and/or counseling patient: (1) Alcohol withdrawal Complication of substance-induced condition: uncomplicated Qualified Code(s): F10.230 - Alcohol dependence with withdrawal, uncomplicated (2) Sepsis Sepsis acute organ dysfunction status: unspecified Sepsis type: sepsis due to unspecified organism Qualified Code(s): A41.9 - Sepsis, unspecified organism
[2019-01-08] MEDS ORDERED: GUAIFENESIN/CODEINE 200MG/20MG 10ML UDC PO PRN (15:46)
[2019-01-08 15:50] LABS: Hematocrit (blood only) 38.2 % (42-52); Hemoglobin 13.1 g/dL (14.0-18.0); Mean Corpuscular Hemoglobin 33.4 pg (25-34); Mean Corpuscular Volume 97.4 fL (80-100); Mean Platelet Volume 9.2 fL (7.4-10.4); Platelet Count 329 K/uL (130-400); RDW Coefficient of Variation 13.8 % (11.5-14.5); RDW Standard Deviation 48.9 fL (36.4-46.3); Red Blood Count 3.92 M/uL (4.7-6.1); White Blood Count 28.87 K/uL (4.8-10.8)
[2019-01-08 16:08] LABS: Albumin Level 1.3 gm/dl (3.4-5.0); Aspartate Aminotransferase 41 U/L (15-37); BUN Creatinine Ratio 24.5 (10-20); Blood Urea Nitrogen 9 mg/dl (7-18); Calcium 7.8 mg/dl (8.5-10.1); Carbon Dioxide 26 mmol/L (21-32); Chloride 100 mmol/L (98-107); Creatinine Clr Calc Pharmacy 150.2 ml/min; Est GFR (African American) > 150.0; Est GFR (Non-African American) 136.1; Glucose 152 mg/dl (70-99); Potassium 4.1 mmol/L (3.5-5.1); Sodium 133 mmol/L (136-145)
[2019-01-08 16:13] LABS: Alanine Aminotransferase 41 U/L (12-78); Albumin Globulin Ratio 0.4 (0.9-2); Alkaline Phosphatase 68 U/L (45-117); Bilirubin,Total 0.2 mg/dl (0.2-1); Globulin 3.5 gm/dl (2.5-4.0); Mean Corpuscular Hgb Conc 34.3 g/dL (32-36); Total Protein 4.8 gm/dl (6.4-8.2)
[2019-01-08 16:28] LABS: Basophils # (auto) 0.03 K/uL (0-0.2); Basophils % (auto) 0.1 %; Eosinophils # (auto) 0.12 K/uL (0-0.5); Eosinophils % (auto) 0.4 %; Immature Granulocytes # (auto) 0.43 K/uL (0.00-0.02); Immature Granulocytes % (auto) 1.5 %; Lymphocytes # (auto) 1.07 K/uL (1.2-3.4); Lymphocytes % (auto) 3.7 %; Monocytes # (auto) 0.87 K/uL (0.11-0.59); Neutrophils # (auto) 26.35 K/uL (1.4-6.5); Neutrophils % (auto) 91.3 %
[2019-01-08] MEDS ORDERED: VANCOMYCIN TROUGH ONE (16:30)
[2019-01-08] MEDS: VANCOMYCIN HCL 1,000 MG in SODIUM CHLORIDE 0.9% 250 ML IV SCH (17:36)
--- NOTE | 2019-01-08 18:30 | Pharmacy Report ---
Pharmacy Abx Dose Short Note - Date of Service January 08, 2019 - Assessment & Plan Assessment 58 year old M receiving IV Vancomycin for treatment of pneumonia Day # 2 of antimicrobial therapy. Plan Vancomycin * Trough level of 14.4 mcg/mL is subtherapeutic. This level was drawn ~2 hours early, therefore actual trough is likely lower. Even though this trough is not reflective of Vancomycin at steady state, it is unlikely that Css trough will be >15 mcg/mL. Will incr' dose and maintain same dosing interval to target a higher trough. * Change to 1000 mg IV every 8 hours * Goal trough level for pneumonia : 15 to 20 mcg/mL * Trough level ordered for: 01/09/19 @ 1630 Pharmacy will continue to follow and will adjust dose/frequency as necessary. Thank you.
--- NOTE | 2019-01-08 22:12 | Pulmonary Consultation ---
Date of Consultation January 08, 2019 Assessment & Plan (1) Acute hypoxemic respiratory failure: His hypoxemia is multifactorial and related to his underlying COPD of unknown severity, heart failure, pneumonia and severe deconditioning. He also has systolic heart failure based on his echo from earlier this admission. He also has some degree of right ventricular failure on echo likely secondary to left heart failure and COPD. He does note that his dyspnea has improved a bit since hospitalization. He will likely require a long recovery and need supplemental oxygen at home. (2) Pneumonia involving right lung: Continue abx as per ID recommendations currently. There is no obvious empyema. Recommend abx for a total of 2 weeks with repeat imaging in 4-6 weeks. Recommend sending for a repeat sputum culture. If no improvement, in the next couple of weeks, will need to consider bronchoscopy to rule out atypical infections such as fungal or NTM. Consider also the possibility of aspiration or organizing pneumonia if no significant improvement with abx. Present on Admission?: Yes (3) COPD exacerbation: Continue neb treatments. No need for steroids at present. Present on Admission?: Yes (4) Parapneumonic effusion: Original pleural fluid studies indicative of an exudate, but no evidence of empyema (normal pleural glucose, neg cultures and no evidence of pus on initial aspiration) Present on Admission?: Yes History of Present Illness Attending Physician: Sheri Montes MD 58-year-old male admitted to the ICU originally due to right upper lobe pneum onia and A. fib RVR found to be in alcohol withdrawal. Initially thought to have a empyema and thus subsequently underwent a chest tube on the right. Pleural fluid studies were not indicative of an empyema. Mist 2 protocol instituted initially but then discontinued as again this was not an empyema. Patient notes that he had severe dyspnea for about 1 week prior to his admission. He said the day of his admission he was severely dyspneic when laying in his bed. This is ultimately what prompted him to come to the hospital. He denies any fevers, chills, night sweats or weight loss. He says he uses Ventolin 4 times daily at home. He also uses Symbicort twice daily. During this admission he has been on broad-spectrum antibiotics. ID was consulted today and his antibiotics were escalated to vancomycin and ertapenem. He has a persistent leukocytosis of 28,000 currently. MRSA screen from 01/06/2019 is negative. It appears that he has been afebrile throughout this admission. Blood cultures and pleural fluid cultures have been negative. Echo from 12/30/2018 demonstrates moderately to severely dilated RV. RVSP of 30 to 40 mmHg. EF of 30-35%. Occupation and exposure history: He states that he smoked 2.5 packs/day and is still currently smoking 1 pack/day. He has had no recent travel. He has 1 cat at home. Lives alone but his girlfriend occasionally comes to take care of him. 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 Allergies Allergy/AdvReac Type Severity Reaction Status Date / Time erythromycin base Allergy Unknown Unknown Verified 12/29/18 21:10 Nitrate Analogues Allergy Unknown Difficulty Verified 12/29/18 21:10 Breathing Penicillins Allergy Unknown Unknown Verified 12/29/18 21:10 Home Medications Home Medications Medication Instructions Recorded Confirmed Type albuterol sulfate [Ventolin HFA] 1 - 2 puff INHALATION .Q4-6HRS PRN 12/29/18 12/29/18 History budesonide-formoterol [Symbicort] 2 puff INHALATION BID 12/29/18 12/29/18 History cetirizine 10 mg PO DAILY PRN 12/29/18 12/29/18 History Patient History Medical History GI bleed (Resolved) Pneumonia (Resolved) COPD (chronic obstructive pulmonary disease) (Chronic) Abdominal mass removed at [facility] - he cannot recall details; he was in 3rd grade Avascular necrosis of hip right Surgical History Hx of appendectomy Family History Father Hairy cell leukemia Mother Multiple myeloma Social History Preferred Language: Italian Communication Ability: Effective Beliefs That Will Affect Care: None marital status: Single marital status details: no children Current Living Situation: Alone Current Living Situation Comment: lives in [place] by himself current occupational status: disabled Other Information That Helps Us Care for You: No other: previously worked as catering sous chef Feels Safe at Home: Yes Smoking Status: Current every day smoker Tobacco Type: cigarettes ; Age Started Using Tobacco: 16 ; packs per day: 1 ; Cigarettes Per Day: 20 ; Do You Dip or Chew Tobacco: Yes ; Hx Alcohol Use: Yes Alcohol type: beer Alcohol Intake Frequency: Daily Alcohol Intake Frequency Comment: 4-6 beers/day Hx Substance Use: No Review of Systems Review of Systems: All systems reviewed & are unremarkable except as noted in HPI & below Physical Exam Constitutional: + ill appearing and + thin Eyes: PERRL, conjunctivae normal, anicteric sclerae ENMT: Ears: no hearing impairment Neck: trachea midline, no thyromegaly Respiratory: Auscultation: + diminished lung sounds and + crackles; no wheezes Cardiovascular: Rate/Rhythm: regular rate Heart Sounds: normal, physiologic split S2 Skin: no rashes, warm and dry normal turgor Neurologic: awake Psychiatric: Orientation: alert and oriented x 3 Lymphatic: no lymphedema Results & Data Vital Signs (Past 12 Hours) Vital Signs Temp Pulse Resp BP Pulse Ox 01/08/19 19:41 92 H 18 93 01/08/19 15:24 98.4 F 91 H 18 101/73 92 Laboratory Results 01/08/19 15:36 01/08/19 15:36 Diagnostic Findings Pertinent chest imaging reviewed. He has persistent right upper lobe infiltrat es. Also has infiltrates to lesser degree in the right lower lobe. Official chest x-ray reads and CT reads from earlier this admission reviewed. PG Care Time/CCT Total # of Minutes Spent Total Time Spent with Patient: Total time spent is greater than 50% in coordination of care (as documented) at patient's floor/unit and/or counseling patient:
[2019-01-08] MEDS: MULTIVITAMIN TAB PO SCH (22:20)
[2019-01-09] MEDS: VANCOMYCIN HCL 1,000 MG in SODIUM CHLORIDE 0.9% 250 ML IV SCH ×3 (01:41→18:37)
[2019-01-09 06:27] LABS: Hematocrit (blood only) 37.7 % (42-52); Hemoglobin 13.4 g/dL (14.0-18.0); Mean Corpuscular Hemoglobin 34.4 pg (25-34); Mean Corpuscular Hgb Conc 35.5 g/dL (32-36); Mean Corpuscular Volume 96.9 fL (80-100); Mean Platelet Volume 8.9 fL (7.4-10.4); Platelet Count 343 K/uL (130-400); RDW Coefficient of Variation 13.7 % (11.5-14.5); RDW Standard Deviation 48.4 fL (36.4-46.3); Red Blood Count 3.89 M/uL (4.7-6.1); White Blood Count 25.66 K/uL (4.8-10.8)
[2019-01-09 06:35] LABS: INR 1.3 (0.9-1.1); Prothrombin Time 13.5 Seconds (9.0-12.0)
[2019-01-09 06:49] LABS: Basophils # (auto) 0.03 K/uL (0-0.2); Basophils % (auto) 0.1 %; Eosinophils # (auto) 0.15 K/uL (0-0.5); Eosinophils % (auto) 0.6 %; Immature Granulocytes # (auto) 0.39 K/uL (0.00-0.02); Immature Granulocytes % (auto) 1.5 %; Lymphocytes # (auto) 0.76 K/uL (1.2-3.4); Monocytes # (auto) 1.76 K/uL (0.11-0.59); Monocytes % (auto) 6.9 %; Neutrophils # (auto) 22.57 K/uL (1.4-6.5); Neutrophils % (auto) 87.9 %; RBC Morphology Unremarkable
[2019-01-09 07:01] LABS: Alanine Aminotransferase 35 U/L (12-78); Albumin Level 1.3 gm/dl (3.4-5.0); Aspartate Aminotransferase 35 U/L (15-37); BUN Creatinine Ratio 20.8 (10-20); Bilirubin,Total 0.3 mg/dl (0.2-1); Blood Urea Nitrogen 8 mg/dl (7-18); Calcium 7.9 mg/dl (8.5-10.1); Carbon Dioxide 28 mmol/L (21-32); Chloride 100 mmol/L (98-107); Creatinine Clr Calc Pharmacy 142.5 ml/min; Est GFR (African American) > 150.0; Est GFR (Non-African American) 133.2; Glucose 79 mg/dl (70-99); Potassium 4.2 mmol/L (3.5-5.1); Sodium 132 mmol/L (136-145)
[2019-01-09 07:02] LABS: Albumin Globulin Ratio 0.4 (0.9-2); Alkaline Phosphatase 72 U/L (45-117); Globulin 3.6 gm/dl (2.5-4.0); Total Protein 4.9 gm/dl (6.4-8.2)
[2019-01-09] MEDS: FORMOTEROL 20 MCG/2 ML VIAL NEB SCH ×2 (07:06→19:20)
[2019-01-09] MEDS: BUDESONIDE 0.5 MG/2 ML VIAL (PULMICORT) NEB SCH ×2 (07:06→19:21)
[2019-01-09] MEDS: LACTOBACILLUS ACIDOPHILUS (FLORANEX) TAB PO SCH ×4 (08:04→20:48)
[2019-01-09] MEDS: FOLIC ACID 1 MG TAB PO SCH (08:05)
[2019-01-09] MEDS: MIDODRINE HCL 2.5 MG TAB PO SCH ×3 (08:05→16:50)
[2019-01-09] MEDS: ENOXAPARIN INJ 30 MG/0.3 ML SYR SQ SCH (08:07)
[2019-01-09] MEDS: PROPRANOLOL HCL 10 MG TAB PO SCH ×2 (08:07→20:52)
[2019-01-09] MEDS: TIOTROPIUM BROMIDE 5 PUFF/90 MCG INH INH SCH (08:08)
[2019-01-09] MEDS: MEGESTROL ACETATE 800 MG/20 ML UDP PO SCH (08:08)
[2019-01-09] MEDS: THIAMINE HCL 100 MG TAB PO SCH ×2 (08:09→20:52)
[2019-01-09] MEDS: ZINC SULFATE 220 MG CAPSULE PO SCH (08:09)
[2019-01-09] MEDS: ALBUT/IPRATROP 3MG/0.5MG NEB 3 ML VIAL NEB PRN (10:41)
[2019-01-09] MEDS: ERTAPENEM SODIUM 1,000 MG in SODIUM CHLORIDE 0.9% 50 ML IV SCH (12:26)
[2019-01-09] MEDS: ACETAMINOPHEN 325 MG TAB PO PRN ×2 (14:04→18:38)
--- NOTE | 2019-01-09 14:12 | Infectious Disease Progress Nt ---
Date of Service January 09, 2019 Assessment & Plan (1) Empyema: continue abx for now. follow sputum culture, suspect may be negative. agree with pulm to treat emperically for 14 days, suspect aspiration component. will need repeat imaging in upcoming weeks. If to be d/c home prior to completi ng 14 days of abx would suggest transition to po doxy and levaquin. Subjective remains afebrile, sputum culture obtained yesterday, pending. remains on abx, wbc improved to 25 today s/p pulm eval, no plans for bronch unless clinically changes. Results & Data Vital Signs (Past 12 Hours) Vital Signs Temp Pulse Resp BP Pulse Ox 01/09/19 10:43 87 18 93 01/09/19 07:33 36.9 C 86 16 100/68 93 01/09/19 07:06 83 18 93 Laboratory Results Microbiology 01/09/19 01:52 Sputum, Expectorated Gram Stain - Final 01/03/19 20:26 Pleural Fluid Gram Stain - Final 01/03/19 20:26 Pleural Fluid Aerobic and Anaerobic Culture - Final No growth 01/03/19 20:26 Pleural Fluid Acid Fast Bacilli Smear - Final 01/03/19 20:26 Pleural Fluid Acid Fast Bacilli Culture - Preliminary No Acid-Fast Bacilli Isolated - Report 1, Additional Report to Follow. PG Care Time/CCT Total # of Minutes Spent Total Time Spent with Patient: Total time spent is greater than 50% in coordination of care (as documented) at patient's floor/unit and/or counseling patient:
--- NOTE | 2019-01-09 15:47 | Pulmonology Progress Note ---
Date of Service January 09, 2019 Assessment & Plan (1) Acute hypoxemic respiratory failure: His hypoxemia is multifactorial and related to his underlying COPD of unknown severity, heart failure, pneumonia and severe deconditioning. He also has systolic heart failure based on his echo from earlier this admission. He also has some degree of right ventricular failure on echo likely secondary to left heart failure and COPD. He does note that his dyspnea has improved a bit since hospitalization. He will likely require a long recovery and need supplemental oxygen at home. (2) Pneumonia involving right lung: Continue abx as per ID recommendations currently. There is no obvious empyema. Recommend abx for a total of 2 weeks. Given the lack of radiographic improvement and no growth since on cutures, we will go ahead and proceed with bronchoscopy to rule out atypical infection such as fungal and nontuberculous Mycobacterium. Other differentials include possible aspiration pneumonitis and organizing pneumonia. We will plan to do a BAL with a cell count, fungal cultures, AFB and bacterial cultures. Depending on what his airway anatomy loo ks like we may consider doing a biopsy as well. (3) COPD exacerbation: Continue neb treatments. No need for steroids at present. (4) Parapneumonic effusion: Original pleural fluid studies indicative of an exudate, but no evidence of empyema (normal pleural glucose, neg cultures and no evidence of pus on initial aspiration) Subjective Mr. Castillo was lying in his bed today and denies any complaints. He said he walked at the edge of his bed and did not have any dyspnea with this. He has not been ambulating around the room otherwise. According to nutrition he is on ly been eating about 50% of his meals.Denies any chest pain, nausea, vomiting, fevers or chills. I asked him history related to being incarcerated. He said he was incarcerated 10 years ago and 3 years ago as well. He said on both occasions his PPDs were negative. Denies any history of drug abuse. He does endorse a significant history of alcohol abuse. He denies any history of aspiration.He denies any withdrawal symptoms currently. Review of Systems Review of Systems: All systems reviewed & are unremarkable except as noted in HPI & below Physical Exam Constitutional: + ill appearing, + thin and + cachectic Eyes: PERRL, conjunctivae normal, anicteric sclerae Respiratory: + tachypneic Auscultation: + rhonchi (in RUL) Cardiovascular: RRR, no murmur, no edema Heart Sounds: normal S1 and normal S2 Skin: no rashes, warm and dry Neurologic: awake Results & Data Vital Signs (Past 12 Hours) Vital Signs Temp Pulse Resp BP Pulse Ox 01/09/19 14:56 99.0 F 93 H 16 101/69 98 01/09/19 10:43 87 18 93 01/09/19 07:33 98.4 F 86 16 100/68 93 01/09/19 07:06 83 18 93 Laboratory Results 01/09/19 06:11 01/09/19 06:11 Diagnostic Findings I reviewed his prior imaging that demonstrates persistent right upper lobe infiltrate with underlying centrilobular emphysema PG Care Time/CCT Total # of Minutes Spent Total Time Spent with Patient: Total time spent is greater than 50% in outreach coordinator rdination of care (as documented) at patient's floor/unit and/or counseling patient: 40 min
[2019-01-09] MEDS ORDERED: VANCOMYCIN TROUGH ONE (16:30)
--- NOTE | 2019-01-09 16:46 | Hospitalist Progress Note ---
Date of Service January 09, 2019 Assessment & Plan (1) Pneumonia involving right lung: Patient has been treated for right upper lobe pneumonia and empyema. Appreciates infectious diseases and pulmonary consult. Continue with vancomycin and ertapenem per ID recommendation for empyema possible aspiration pneumonia. On discharge switch to Levaquin and doxycycline. Collect sputum culture as recommended by pulmonary. Trend down white blood cell count. Patient had chest tube removed on 01/05. Appears to be an exudate. Continue DuoNebs PRN. Blood cultures so far negative, sputum Gram stain negative acid-fast negative. Monitor daily CBC CMP replenish electrolytes Strict in and out Daily weight weight Continue Guaifenesin extended release 600 mg p.o. twice daily (2) Alcohol withdrawal: Patient will continue on CIWA scale. No signs of withdrawal. (3) Cardiomyopathy: Echo was done on 12/30 for concern for afib (see below). EF is 30-35% with regional wall motion abnormalities. RV is severely dilated. 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 There are regional wall motion abnormalities as specified. Right ventricle is moderately to severely dilated. The right ventricle systolic function is moderately reduced. The right atrium is moderately dilated. There is a moderate tricuspid regurgitation. Right ventricle systolic pressure is elevated to 30-40. (4) Sepsis: Sepsis due to pneumonia growing right upper lobe. - Plan as above. (5) Sinus tachycardia: Initially thought to be in afib with RVR per EKG auto-read; however, he has only been in sinus tachycardia with rates in the 100-120 range. - Stopped heparin gtt - Treating pneumonia - Monitor HR (6) Non-ST elevation [place] (NSTEMI): It appears patient did not suffer a NSTEMI, but perhaps demand ischemia. (7) COPD exacerbation: Possibly mild COPD exacerbation with increased shortness of breath. - See above (8) Hypotension: Multifactorial, associated with hypoalbuminemia, cachexia. BP is improving after changing antibiotics on 01/03. (9) Alcohol abuse: Patient drinks approx. 75 beers/wk. (~8-12/day). Per prior notes, had mild withdrawal during last admission. Patient has no interest in quitting and declined any further discussion on his drinking. - Continue CIWA protocol as above - Vitamin supplements. (10) Current every day smoker: Cessation counseling. (11) Severe protein-calorie malnutrition: BMI is 16. Patient appears to not have a good appetite and in the hospital only prefers to drink fluid. This likely shows that patient at home gets his calories from his alcoholic b everages. His low BMI will likely work against him in his recovery. (12) Severe sepsis: Patient having signs of sepsis. WBC improving on 01/04. b/p IS IMPROVING. (13) Acute hypoxemic respiratory failure: Continues to require nasal cannula Will continue to monitor. This is from his right upper lobe pneumonia. Given his worsening, will cover for MRSA, pseUdomonas and anaerobes. (14) Empyema lung: As noted on imaging, patient has a collection of fluid around the right l samara. This likely represents an empyema. Has chest tube placed. 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 (15) DVT prophylaxis: Lovenox 40mg Subjective Patient seen and examined at the bedside. Slowly improving. Seen by pulmonary and infectious diseases. Appreciate their recommendations. Pulmonary will consider bronchoscopy if patient condition worsening. Afebrile, p.o. intake improving. White blood cell count continues to be high but slowly improving and now is 25K. Patient said the cough is still there but somewhat better continues to be productive. Patient denies fever chills chest pain shortness of breath abdominal pain frequency urgency hemoptysis hematemesis hematuria dysuria. Review of Systems Review of Systems: All systems reviewed & are unremarkable except as noted in HPI & below Physical Exam Constitutional: WD/WN, vitals as above + frail appearing Eyes: PERRL, conjunctivae normal, anicteric sclerae ENMT: external ear and nose normal, oropharynx normal Neck: trachea midline, no thyromegaly Respiratory: Auscultation: + crackles, + wheezes, + bronchovesicular breath sounds and + egophony Cardiovascular: RRR, no murmur, no edema Chest (Breasts): normal inspection/palpation of breasts Gastrointestinal (Abdomen): normal bowel sounds, soft, nontender, no hepatosplenomegaly Musculoskeletal: no cyanosis or clubbing, extremities motor strength 5/5 Skin: no rashes, warm and dry Neurologic: patellar DTR's 2+ bilat, sensation intact Results & Data Vital Signs (Past 12 Hours) Vital Signs Temp Pulse Resp BP Pulse Ox 01/09/19 14:56 37.2 C 93 H 16 101/69 98 01/09/19 10:43 87 18 93 01/09/19 07:33 36.9 C 86 16 100/68 93 01/09/19 07:06 83 18 93 PG Care Time/CCT Total # of Minutes Spent Total Time Spent with Patient: Total time spent is greater than 50% in coordination of care (as documented) at patient's floor/unit and/or counseling patient: (1) Alcohol withdrawal Complication of substance-induced condition: uncomplicated Qualified Code(s): F10.230 - Alcohol dependence with withdrawal, uncomplicated (2) Sepsis Sepsis acute organ dysfunction status: unspecified Sepsis type: sepsis due to unspecified organism Qualified Code(s): A41.9 - Sepsis, unspecified organism
[2019-01-09] MEDS ORDERED: SODIUM CHLOR 7% 4 ML NEB INH PRN (16:50)
--- NOTE | 2019-01-09 18:54 | Pharmacy Report ---
Pharmacy Abx Dose Short Note - Date of Service January 09, 2019 - Assessment & Plan Assessment 58 year old M receiving Vancomycin 1000mg IV Q8H for treatment of pneumonia/empyema. Day # 3 of antimicrobial therapy. Laboratory Tests 01/09/19 16:35 Vancomycin Trough 19.3 Plan Vancomycin * Trough level of 19.3 mcg/mL is therapeutic. * Continue dose of 1000 mg IV every 8 hours * Goal trough level : 15 to 20 mcg/mL Pharmacy will continue to follow and will adjust dose/frequency as necessary. Thank you.
[2019-01-09] MEDS: DOCUSATE SODIUM/SENNA 50/8.6MG TAB PO SCH (20:48)
[2019-01-09] MEDS: MULTIVITAMIN TAB PO SCH (20:49)
[2019-01-09] MEDS ORDERED: MELOXICAM 7.5 MG TAB PO ONE (21:15)
[2019-01-10] MEDS ORDERED: VANCOMYCIN TROUGH ONE (00:30)
[2019-01-10] MEDS: VANCOMYCIN HCL 1,000 MG in SODIUM CHLORIDE 0.9% 250 ML IV SCH ×3 (01:09→16:54)
[2019-01-10 06:13] LABS: Basophils # (auto) 0.02 K/uL (0-0.2); Basophils % (auto) 0.1 %; Eosinophils # (auto) 0.17 K/uL (0-0.5); Eosinophils % (auto) 0.9 %; Hematocrit (blood only) 35.9 % (42-52); Immature Granulocytes # (auto) 0.25 K/uL (0.00-0.02); Immature Granulocytes % (auto) 1.3 %; Lymphocytes # (auto) 0.93 K/uL (1.2-3.4); Lymphocytes % (auto) 4.7 %; Mean Corpuscular Hemoglobin 32.7 pg (25-34); Mean Corpuscular Hgb Conc 33.4 g/dL (32-36); Mean Corpuscular Volume 97.8 fL (80-100); Mean Platelet Volume 9.1 fL (7.4-10.4); Monocytes # (auto) 1.69 K/uL (0.11-0.59); Monocytes % (auto) 8.5 %; Neutrophils # (auto) 16.85 K/uL (1.4-6.5); Neutrophils % (auto) 84.5 %; Platelet Count 344 K/uL (130-400); RDW Coefficient of Variation 13.7 % (11.5-14.5); RDW Standard Deviation 49.2 fL (36.4-46.3); Red Blood Count 3.67 M/uL (4.7-6.1); White Blood Count 19.91 K/uL (4.8-10.8)
[2019-01-10 06:26] LABS: INR 1.2 (0.9-1.1); Prothrombin Time 11.9 Seconds (9.0-12.0)
[2019-01-10 06:42] LABS: Alanine Aminotransferase 26 U/L (12-78); Albumin Level 1.3 gm/dl (3.4-5.0); Aspartate Aminotransferase 25 U/L (15-37); BUN Creatinine Ratio 26.9 (10-20); Blood Urea Nitrogen 10 mg/dl (7-18); Calcium 7.7 mg/dl (8.5-10.1); Carbon Dioxide 30 mmol/L (21-32); Chloride 101 mmol/L (98-107); Creatinine Clr Calc Pharmacy 154.3 ml/min; Est GFR (African American) > 150.0; Est GFR (Non-African American) 137.7; Glucose 88 mg/dl (70-99); Potassium 4.1 mmol/L (3.5-5.1); Sodium 135 mmol/L (136-145)
[2019-01-10 06:45] LABS: Albumin Globulin Ratio 0.4 (0.9-2); Alkaline Phosphatase 89 U/L (45-117); Bilirubin,Total 0.2 mg/dl (0.2-1); Globulin 3.3 gm/dl (2.5-4.0); Total Protein 4.6 gm/dl (6.4-8.2)
[2019-01-10] MEDS: BUDESONIDE 0.5 MG/2 ML VIAL (PULMICORT) NEB SCH ×2 (06:56→19:08)
[2019-01-10] MEDS: FORMOTEROL 20 MCG/2 ML VIAL NEB SCH ×2 (06:56→19:08)
[2019-01-10] MEDS: LACTOBACILLUS ACIDOPHILUS (FLORANEX) TAB PO SCH ×4 (08:36→20:20)
[2019-01-10] MEDS: MIDODRINE HCL 2.5 MG TAB PO SCH ×3 (08:36→16:56)
[2019-01-10] MEDS: FOLIC ACID 1 MG TAB PO SCH (08:37)
[2019-01-10] MEDS: PROPRANOLOL HCL 10 MG TAB PO SCH ×2 (08:38→20:20)
[2019-01-10] MEDS: MEGESTROL ACETATE 800 MG/20 ML UDP PO SCH (08:39)
[2019-01-10] MEDS: DOCUSATE SODIUM/SENNA 50/8.6MG TAB PO SCH (08:40)
[2019-01-10] MEDS: THIAMINE HCL 100 MG TAB PO SCH ×2 (08:41→20:20)
[2019-01-10] MEDS: ZINC SULFATE 220 MG CAPSULE PO SCH (08:41)
[2019-01-10] MEDS: TIOTROPIUM BROMIDE 5 PUFF/90 MCG INH INH SCH (10:17)
[2019-01-10] MEDS ORDERED: OXYMETAZOLINE 0.05% 30 ML BTL ONE (10:39)
[2019-01-10] MEDS ORDERED: LIDOCAINE 4% INH SOLN 4 ML BTL NAE ONE (10:39)
--- NOTE | 2019-01-10 10:43 | History & Physical Bridge Note ---
Date of Service January 10, 2019 History & Physical Bridge Note I have examined the patient, reviewed the History & Physical and in the interval since the performance of the History & Physical I have noted the following changes of clinical significance: no changes noted
--- NOTE | 2019-01-10 10:45 | Pre Anesthesia Assessment ---
Date of Service January 10, 2019 Pre Sedation Assessment Vital Signs Temp Pulse Pulse Resp BP Pulse Ox 01/10/19 10:35 77 14 122/77 96 01/10/19 07:14 98.4 F 96 H 18 108/74 90 01/10/19 06:57 70 18 90 01/10/19 00:00 97.9 F 86 18 101/66 95 01/09/19 19:56 94 H 20 95 01/09/19 14:56 99.0 F 93 H 16 101/69 98 Cardiovascular RRR, no murmur, no edema no JVD Respiratory normal respiratory effort, lungs clear to auscultation Pre-Sedation Airway Assessment Smoking Status: Current every day smoker Hx Sleep Apnea: No Short, Thick Neck: No Thyromental Distance: > or= 3.5 Finger Breadths Oral Cavity: + Dental Abnormalities Mallampati Class: II ASA: ASA2 NPO Status Date of Last Intake of Fluids: 01/10/19 Time of Last Intake of Fluids: 00:00 Date of Last Intake of Solid Food: 01/10/19 Time of Last Intake of Solid Foods: 00:00 Procedure Planning Contraindications for Sedation: none Current Medications Reviewed: Yes Notes The planned sedation has been discussed with the patient. Informed Consent was obtained. I have identified the patient, determined the appropriateness of sedation and have assessed the patient immediately prior to the procedure. All medicine(s) and interventions are by my order.
[2019-01-10] MEDS ORDERED: LIDOCAINE HCL VISCOUS SOLN 2% 15 ML UDC TOP ONE (11:23)
[2019-01-10] MEDS ORDERED: fentaNYL citrate 100 MCG/2 ML VIAL IV ONE (11:23)
[2019-01-10] MEDS ORDERED: LIDOCAINE HCL 2% (LOCAL) INJ 50 ML VIAL INFIL STA (11:23)
[2019-01-10] MEDS ORDERED: MIDAZOLAM HCL 1 MG/ML 2ML VIAL IV STA (11:23)
--- NOTE | 2019-01-10 11:23 | Post Anesthesia Assessment ---
Date of Service January 10, 2019 Post Sedation Assessment Vital Signs Temp Pulse Pulse Resp BP Pulse Ox 01/10/19 11:20 85 14 121/77 89 L 01/10/19 11:15 80 14 133/83 92 01/10/19 11:10 81 14 115/74 96 01/10/19 11:05 78 12 111/75 97 01/10/19 11:00 81 14 110/75 95 01/10/19 10:55 77 14 117/75 98 01/10/19 10:50 85 14 116/73 97 01/10/19 10:35 77 14 122/77 96 01/10/19 07:14 98.4 F 96 H 18 108/74 90 01/10/19 06:57 70 18 90 01/10/19 00:00 97.9 F 86 18 101/66 95 01/09/19 19:56 94 H 20 95 01/09/19 14:56 99.0 F 93 H 16 101/69 98 Recovery Score Activity: Moves 4 extremities Respiration: Deep Breath/Cough Circulation: +/-20% PreAnes Value Consciousness: Arouseable (by name) Oxygen Saturation: O2 needed for >90% Post Anesthesia Score: 8 Post Sedation Plan On clinical assessment, the patient appears to have tolerated the sedation without complications. Patient is recovering as anticipated. Patient will continue to be monitored by nursing and may be discharged when sedation discharge criteria are met per below protocol. Upon Completions of procedure and additional 15 minutes continue every 5 minute vital signs and the P.A.R. score; then discharge to a Phase I or Fast Track to Phase II per the following guidelines: * Discharge Patient to appropriate Phase II area if PAR is 8 or greater or return to pre- procedure baseline. The post - procedure orders will be as directed. * If PAR score is less than 8 or not return to pre-procedure baseline then patient will follow Phase I monitoring till PAR is reached for Phase II. The Phase I may be done in procedure room or may call to secure a Phase I area. * If naloxone or flumazenil are used for reversal, hold in Phase I for continued monitoring from when last reversal dose was given for a minimum of 60 minutes or longer pending the nurse and/or physician discretion of patient condition before discharge to Phase II. Please call the Sedation Physician to re-evaluate and complete post-note for discharge to Phase II area. Do NOT discharge from procedure sedation or Phase 1 until post- sedation evaluation note is complete by procedure /sedation MD Sedation Discharge Instructions to be given to the patient at discharge to home.
--- NOTE | 2019-01-10 11:41 | Procedure Note ---
Procedure Note: Bronchoscopy Procedure Procedure: Flexible Bronchoscopy Attending/Music Publicist: [Brian] Anesthetic/Sedation: [2 mg of versed and 50 mcg of fentanyl] Indication: [Persistent RUL infiltrates and persistent hypoxemia] [x]Consent was signed and placed on the chart prior to procedure. Indication, risks, and benefits were explained at length. A time-out was completed verifying correct patient, procedure, site, positioning, and implant(s) or special equipment if applicable. Findings: Trachea - [No ulcerations or lesions. No dynamic airway collapse] Main Lizzie - [Sharp] LEFT Mainstem Bronchus: Some mucosal pitting seen ARMANDO - Minimal secretions LLL - Minimal secretions RIGHT Mainstem Bronchus: Scant thin secretions seen RUL: Scant thin secretions seen RIGHT Bronchus Intermedius: Scant thin secretions seen RML - Scant thin secretions seen RLL - Scant thin secretions seen Specimens: BAL - [60] mL x [2], [Anterior subsegment] Lobe Complications: NONE Impression: [Thin, scant clear secretions seen in the RUL. BAL performed of RUL with 60 ml x2 instilled. 25 ml return of clear frothy fluid. No significant bleeding seen. Scope was withdrawn and patient was saturating well on 6L O2 via oxymask.] Plan: Sent BAL for Culture & Sensitivities, Gram Stain, AFB, cell count and cytology Images: Print out of images added to patients physical chart.
[2019-01-10] MEDS: ERTAPENEM SODIUM 1,000 MG in SODIUM CHLORIDE 0.9% 50 ML IV SCH (13:31)
--- NOTE | 2019-01-10 13:57 | Infectious Disease Progress Nt ---
Date of Service January 10, 2019 Assessment & Plan (1) Parapneumonic effusion: continue abx, follow bronch cultures. Subjective pt continues on emperic abx. sputum culture scant normal martina, had bronch today, cultures pending, tolerated well. wbc decreased to 19 today (25). remains afebrile. Results & Data Vital Signs (Past 12 Hours) Vital Signs Temp Pulse Pulse Resp BP Pulse Ox 01/10/19 13:25 36.4 C L 82 16 90/61 L 95 01/10/19 13:15 36.4 C L 84 18 116/76 93 01/10/19 12:43 36.5 C 85 18 102/71 92 01/10/19 12:15 36.9 C 78 18 106/73 91 01/10/19 12:00 36.8 C 89 18 110/81 91 01/10/19 11:45 37.0 C 90 18 110/77 89 L 01/10/19 11:32 92 01/10/19 11:30 76 14 119/75 93 01/10/19 11:25 85 14 114/70 93 01/10/19 11:20 85 14 121/77 89 L 01/10/19 11:15 80 14 133/83 92 01/10/19 11:10 81 14 115/74 96 01/10/19 11:05 78 12 111/75 97 01/10/19 11:00 81 14 110/75 95 01/10/19 10:55 77 14 117/75 98 01/10/19 10:50 85 14 116/73 97 01/10/19 10:35 77 14 122/77 96 01/10/19 07:14 36.9 C 96 H 18 108/74 90 01/10/19 06:57 70 18 90 Laboratory Results Microbiology 01/09/19 17:00 Sputum, Expectorated Gram Stain - Final 01/09/19 17:00 Sputum, Expectorated Sputum Culture - Preliminary Scant normal martina present; Final report to follow. 01/09/19 01:52 Sputum, Expectorated Gram Stain - Final 01/09/19 01:52 Sputum, Expectorated Sputum Culture - Preliminary Scant normal martina present; Final report to follow. 01/09/19 17:00 Sputum, Expectorated Fungal Smear - Final 01/03/19 20:26 Pleural Fluid Gram Stain - Final 01/03/19 20:26 Pleural Fluid Aerobic and Anaerobic Culture - Final No growth 01/03/19 20:26 Pleural Fluid Acid Fast Bacilli Smear - Final 01/03/19 20:26 Pleural Fluid Acid Fast Bacilli Culture - Preliminary No Acid-Fast Bacilli Isolated - Report 1, Additional Report to Follow. PG Care Time/CCT Total # of Minutes Spent Total Time Spent with Patient: Total time spent is greater than 50% in coordination of care (as documented) at patient's floor/unit and/or counseling patient:
--- NOTE | 2019-01-10 18:11 | Hospitalist Progress Note ---
Date of Service January 10, 2019 Assessment & Plan (1) Pneumonia involving right lung: Patient has been treated for right upper lobe pneumonia and empyema. Awaiting for the results of bronchoscopy cultures and biopsy. Appreciates infectious diseases and pulmonary consult. Continue with vancomycin and ertapenem per ID recommendation for empyema possible aspiration pneumonia. On discharge switch to Levaquin and doxycycline. Collect sputum culture as recommended by pulmonary. Trend down white blood cell count. Patient had chest tube removed on 01/05. Appears to be an exudate. Continue DuoNebs PRN. Blood cultures so far negative, sputum Gram stain negative acid-fast negative. Monitor daily CBC CMP replenish electrolytes Strict in and out Daily weight weight Continue Guaifenesin extended release 600 mg p.o. twice daily (2) Alcohol withdrawal: Patient will continue on CIWA scale. No signs of withdrawal. (3) Cardiomyopathy: Echo was done on 12/30 for concern for afib (see below). EF is 30-35% with regional wall motion abnormalities. RV is severely dilated. 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 There are regional wall motion abnormalities as specified. Right ventricle is moderately to severely dilated. The right ventricle systolic function is moderately reduced. The right atrium is moderately dilated. There is a moderate tricuspid regurgitation. Right ventricle systolic pressure is elevated to 30-40. (4) Sepsis: Sepsis due to pneumonia growing right upper lobe. - Plan as above. (5) Sinus tachycardia: Initially thought to be in afib with RVR per EKG auto-read; however, he has only been in sinus tachycardia with rates in the 100-120 range. - Stopped heparin gtt - Treating pneumonia - Monitor HR (6) Non-ST elevation [place] (NSTEMI): It appears patient did not suffer a NSTEMI, but perhaps demand ischemia. (7) COPD exacerbation: Possibly mild COPD exacerbation with increased shortness of breath. - See above (8) Hypotension: Multifactorial, associated with hypoalbuminemia, cachexia. BP is improving after changing antibiotics on 01/03. (9) Alcohol abuse: Patient drinks approx. 75 beers/wk. (~8-12/day). Per prior notes, had mild withdrawal during last admission. Patient has no interest in quitting and declined any further discussion on his drinking. - Continue CIWA protocol as above - Vitamin supplements. (10) Current every day smoker: Cessation counseling. (11) Severe protein-calorie malnutrition: BMI is 16. Patient appears to not have a good appetite and in the hospital only prefers to drink fluid. This likely shows that patient at home gets his calories from his alcoholic beverages. His low BMI will likely work against him in his recovery. (12) Severe sepsis: Patient having signs of sepsis. WBC improving on 01/04. b/p IS IMPROVING. (13) Acute hypoxemic respiratory failure: Continues to require nasal cannula Will continue to monitor. This is from his right upper lobe pneumonia. Given his worsening, will cover for MRSA, pseUdomonas and anaerobes. (14) Empyema lung: As noted on imaging, patient has a collection of fluid around the right lung. This likely represents an empyema. Has chest tube placed. D/W labor relations director. (15) DVT prophylaxis: Lovenox 40mg Subjective Pt is seen and examined at at the bedside .He is status post bronchoscopy today which he tolerated very well.started vest treatment and hypertonic saline. Pt continues on emperic abx. sputum culture scant normal martina,cultures pending. Patient denies fever chills chest pain shortness of breath abdominal pain frequ ency urgency hematemesis hematuria dysuria melena. White blood cell count trending down from 28-19,000. Review of Systems Review of Systems: The patient denies palpitations, lower extremity swelling, sore throat, fevers, chills, sweats, nausea, vomiting, diarrhea , constipation, abdominal pain, pelvic pain, blood in urine or stool, dysuria, urinary frequency or urgency, lightheadedness, dizziness, headache, memory loss, loss of consciousness, rash, abnormal bruising or bleeding, imbalance, focal or generalized weakness, numbness or tingling in arms or legs, generalized arthralgias or myalgias, back or neck pain, or night sweats. The review of systems is otherwise negative other than for that already noted above, and at least 10 systems have been reviewed. Constitutional: + weakness Respiratory: + cough; no change in sputum and no dyspnea Physical Exam Constitutional: WD/WN, vitals as above + frail appearing Eyes: PERRL, conjunctivae normal, anicteric sclerae ENMT: external ear and nose normal, oropharynx normal Neck: trachea midline, no thyromegaly Respiratory: Auscultation: + crackles, + wheezes, + bronchovesicular breath sounds and + egophony Cardiovascular: RRR, no murmur, no edema Chest (Breasts): normal inspection/palpation of breasts Gastrointestinal (Abdomen): normal bowel sounds, soft, nontender, no hepatosplenomegaly Musculoskeletal: no cyanosis or clubbing, extremities motor strength 5/5 Skin: no rashes, warm and dry Neurologic: patellar DTR's 2+ bilat, sensation intact Results & Data Vital Signs (Past 12 Hours) Vital Signs Temp Pulse Pulse Resp BP Pulse Ox 01/10/19 15:32 36.4 C L 90 20 103/69 90 01/10/19 14:15 36.4 C L 91 H 18 107/72 90 01/10/19 13:25 36.4 C L 82 16 90/61 L 95 01/10/19 13:15 36.4 C L 84 18 116/76 93 01/10/19 12:43 36.5 C 85 18 102/71 92 01/10/19 12:15 36.9 C 78 18 106/73 91 01/10/19 12:00 36.8 C 89 18 110/81 91 01/10/19 11:45 37.0 C 90 18 110/77 89 L 01/10/19 11:32 92 01/10/19 11:30 76 14 119/75 93 01/10/19 11:25 85 14 114/70 93 01/10/19 11:20 85 14 121/77 89 L 01/10/19 11:15 80 14 133/83 92 01/10/19 11:10 81 14 115/74 96 01/10/19 11:05 78 12 111/75 97 01/10/19 11:00 81 14 110/75 95 01/10/19 10:55 77 14 117/75 98 01/10/19 10:50 85 14 116/73 97 01/10/19 10:35 77 14 122/77 96 01/10/19 07:14 36.9 C 96 H 18 108/74 90 01/10/19 06:57 70 18 90 PG Care Time/CCT Total # of Minutes Spent Total Time Spent with Patient: Total time spent is greater than 50% in coordination of care (as documented) at patient's floor/unit and/or counseling patient: (1) Alcohol withdrawal Complication of substance-induced condition: uncomplicated Qualified Code(s): F10.230 - Alcohol dependence with withdrawal, uncomplicated (2) Sepsis Sepsis acute organ dysfunction status: unspecified Sepsis type: sepsis due to unspecified organism Qualified Code(s): A41.9 - Sepsis, unspecified organism
[2019-01-10] MEDS: MULTIVITAMIN TAB PO SCH (20:20)
--- NOTE | 2019-01-10 20:49 | Pulmonology Progress Note ---
Date of Service January 10, 2019 Assessment & Plan (1) Acute hypoxemic respiratory failure: Multifactorial Large right upper lobe pneumonia * Continue antibiotics Patient with history of incarceration but reports that PPDs were normal * No strong suspicion for tuberculosis * No evidence of cavitary lesion * Bronchoscopy planned for today Echocardiogram with left-sided heart failure Continue supplemental O2 as required Increase ambulation as required Follow expectantly (2) Pneumonia involving right lung: Right upper lobe pneumonia * Continue antibiotics for 2 weeks * ID is consulted and following * Appreciate their input Bronchoscopy planned for today * Will send for cell count, AFB, fungal cultures, bacterial cultures Previous thoracentesis with exudative findings but no evidence of empyema Continue to follow supportively on medical floor (3) COPD exacerbation: Patient with daily tobacco abuse Continue albuterol and budesonide nebulizer treatments Continue Perforomist nebs twice daily Spiriva started this admission Consider pulmonary follow-up for PFTs as an outpatient Patient currently titrated to nasal cannula Patient not currently receiving steroids (4) Parapneumonic effusion: Previous thoracentesis 01/03/2019 * Protein 1.6, LDH 187, glucose 132, amylase 27 * Resolved pleural effusions on chest x-ray 01/07/2019 * Follow clinically (5) DVT prophylaxis: Okay to resume enoxaparin after bronchoscopy Ambulate as tolerated Thank you for including us in the care of this patient. We will continue to follow along with you. Please refer to Dr. Torres's addendum for further recommendations. Supervising Physician Co-Signing Physician Notes Patient seen and examined with Dru CHO. Performed a bronchoscopy today. There is no significant evidence of secretions aside for scant secretions seen in the right upper lobe. I performed a BAL of the right upper lobe and we sent these for cultures, cell count and cytology. Patient tolerated the procedure well. Recommendations remain largely the same including continuing antibiotics for total 2 weeks. Continue supplemental oxygen. Rest of the note as per Dru CHO. Subjective Patient was seen and examined at bedside first thing this morning. Plan is for patient to have bronchoscopy to evaluate right upper lobe pneumonia. Patient denies any significant bronchospasm, fever, chills, sweats, rigors in the last 24 hours. He continues to require supplemental O2 but has no acute shortness of breath or dyspnea. He has minimal ambulation and states he is not been in the hallway. The patient has no chest pain or tightness. He has no nausea or vomiting. He has no recent aspiration or vomiting per his report. He has no other acute complaints. Review of Systems Review of Systems: All systems reviewed & are unremarkable except as noted in HPI & below Physical Exam Physical Exam: GENERAL : No acute distress. Patient appears cachectic. EYES: No icterus, gaze conjugate NOSE: No evidence of epistaxis MOUTH: No lesions or candidiasis. Poor dental hygiene and multiple dental caries. Tongue is midline. NECK: Supple LUNGS: Patient has minimal basal rales. On initial auscultation he had a wheeze in the left lower lobe but this cleared with cough. He also had some initial rhonchi which also cleared with cough. He has no appreciation of bronchospasm. There is no paradoxical movement of the chest wall. HEART: Regular, rate controlled ABDOMEN: Soft, NT, ND, BS Present EXTREMITIES: No LE edema, pedal pulses intact NEURO: A&OX3 Results & Data Vital Signs (Past 12 Hours) Vital Signs Temp Pulse Pulse Resp BP Pulse Ox 01/10/19 19:08 78 20 95 01/10/19 15:32 36.4 C L 90 20 103/69 90 01/10/19 14:15 36.4 C L 91 H 18 107/72 90 01/10/19 13:25 36.4 C L 82 16 90/61 L 95 01/10/19 13:15 36.4 C L 84 18 116/76 93 01/10/19 12:43 36.5 C 85 18 102/71 92 01/10/19 12:15 36.9 C 78 18 106/73 91 01/10/19 12:00 36.8 C 89 18 110/81 91 01/10/19 11:45 37.0 C 90 18 110/77 89 L 01/10/19 11:32 92 01/10/19 11:30 76 14 119/75 93 01/10/19 11:25 85 14 114/70 93 01/10/19 11:20 85 14 121/77 89 L 01/10/19 11:15 80 14 133/83 92 01/10/19 11:10 81 14 115/74 96 01/10/19 11:05 78 12 111/75 97 01/10/19 11:00 81 14 110/75 95 01/10/19 10:55 77 14 117/75 98 01/10/19 10:50 85 14 116/73 97 01/10/19 10:35 77 14 122/77 96 Laboratory Results 01/10/19 05:35 01/10/19 05:35 Diagnostic Findings No diagnostic imaging since 01/07/2019 PG Care Time/CCT Total # of Minutes Spent Total Time Spent with Patient: Total time spent is greater than 50% in coordination of care (as documented) at patient's floor/unit and/or counseling patient: 30
[2019-01-11] MEDS: VANCOMYCIN HCL 1,000 MG in SODIUM CHLORIDE 0.9% 250 ML IV SCH ×3 (01:35→17:55)
[2019-01-11] MEDS: ACETAMINOPHEN 325 MG TAB PO PRN (06:19)
[2019-01-11] MEDS: BUDESONIDE 0.5 MG/2 ML VIAL (PULMICORT) NEB SCH ×2 (07:21→19:17)
[2019-01-11] MEDS: FORMOTEROL 20 MCG/2 ML VIAL NEB SCH ×2 (07:21→19:17)
[2019-01-11 07:43] LABS: Basophils # (auto) 0.04 K/uL (0-0.2); Basophils % (auto) 0.2 %; Eosinophils # (auto) 0.12 K/uL (0-0.5); Eosinophils % (auto) 0.6 %; Hematocrit (blood only) 34.7 % (42-52); Hemoglobin 11.9 g/dL (14.0-18.0); Immature Granulocytes # (auto) 0.15 K/uL (0.00-0.02); Immature Granulocytes % (auto) 0.8 %; Lymphocytes # (auto) 1.04 K/uL (1.2-3.4); Lymphocytes % (auto) 5.4 %; Mean Corpuscular Hgb Conc 34.3 g/dL (32-36); Mean Corpuscular Volume 96.1 fL (80-100); Mean Platelet Volume 8.7 fL (7.4-10.4); Monocytes % (auto) 8.3 %; Neutrophils # (auto) 16.38 K/uL (1.4-6.5); Neutrophils % (auto) 84.7 %; Platelet Count 330 K/uL (130-400); RDW Coefficient of Variation 13.7 % (11.5-14.5); RDW Standard Deviation 48.3 fL (36.4-46.3); Red Blood Count 3.61 M/uL (4.7-6.1); White Blood Count 19.33 K/uL (4.8-10.8)
[2019-01-11] MEDS: MEGESTROL ACETATE 800 MG/20 ML UDP PO SCH (07:45)
[2019-01-11] MEDS: TIOTROPIUM BROMIDE 5 PUFF/90 MCG INH INH SCH (07:45)
[2019-01-11] MEDS: DOCUSATE SODIUM/SENNA 50/8.6MG TAB PO SCH (07:46)
[2019-01-11] MEDS: FOLIC ACID 1 MG TAB PO SCH (07:46)
[2019-01-11] MEDS: THIAMINE HCL 100 MG TAB PO SCH ×2 (07:46→21:24)
[2019-01-11] MEDS: PROPRANOLOL HCL 10 MG TAB PO SCH ×2 (07:46→21:23)
[2019-01-11] MEDS: ZINC SULFATE 220 MG CAPSULE PO SCH (07:47)
[2019-01-11] MEDS: MIDODRINE HCL 2.5 MG TAB PO SCH ×3 (07:47→17:55)
[2019-01-11] MEDS: LACTOBACILLUS ACIDOPHILUS (FLORANEX) TAB PO SCH ×4 (07:47→21:24)
[2019-01-11 08:19] LABS: Alanine Aminotransferase 21 U/L (12-78); Albumin Level 1.3 gm/dl (3.4-5.0); Aspartate Aminotransferase 21 U/L (15-37); BUN Creatinine Ratio 20.1 (10-20); Blood Urea Nitrogen 7 mg/dl (7-18); Calcium 7.7 mg/dl (8.5-10.1); Carbon Dioxide 28 mmol/L (21-32); Chloride 103 mmol/L (98-107); Creatinine Clr Calc Pharmacy 154.3 ml/min; Est GFR (African American) > 150.0; Est GFR (Non-African American) 137.7; Glucose 83 mg/dl (70-99); Sodium 135 mmol/L (136-145)
[2019-01-11 08:22] LABS: Albumin Globulin Ratio 0.4 (0.9-2); Alkaline Phosphatase 67 U/L (45-117); Bilirubin,Total 0.3 mg/dl (0.2-1); Globulin 3.4 gm/dl (2.5-4.0); Total Protein 4.7 gm/dl (6.4-8.2)
[2019-01-11] MEDS: ERTAPENEM SODIUM 1,000 MG in SODIUM CHLORIDE 0.9% 50 ML IV SCH (11:52)
--- NOTE | 2019-01-11 13:59 | Infectious Disease Progress Nt ---
Date of Service January 11, 2019 Assessment & Plan (1) Parapneumonic effusion: continue abx, follow bronch cultures. suspect C. albicans from sputum represents normal oral martina, fungal bronch smear negative. Subjective 1/ sputum culture 01/09 growing C. albicans, bronch cultures normal martina only, fungal smear negative. afebrile. tolerating abx, wbc continues to improve. Results & Data Vital Signs (Past 12 Hours) Vital Signs Temp Pulse Resp BP Pulse Ox 01/11/19 07:55 36.9 C 101 H 16 123/82 95 01/11/19 07:23 98 H 18 96 Laboratory Results Microbiology 01/10/19 11:23 Bronch Wash,Right Upper Lobe Gram Stain - Final 01/10/19 11:23 Bronch Wash,Right Upper Lobe Bronchoalveolar Lavage Culture - Preliminary Light normal martian present, final report to follow. 01/10/19 11:23 Bronch Wash,Right Upper Lobe Acid Fast Bacilli Smear - Final 01/10/19 11:23 Bronch Wash,Right Upper Lobe Fungal Smear - Final 01/09/19 17:00 Sputum, Expectorated Gram Stain - Final 01/09/19 17:00 Sputum, Expectorated Sputum Culture - Preliminary Scant normal martina present; Final report to follow. 01/09/19 01:52 Sputum, Expectorated Gram Stain - Final 01/09/19 01:52 Sputum, Expectorated Sputum Culture - Preliminary Fungus- ident.to follow Zayra albicans 01/09/19 17:00 Sputum, Expectorated Fungal Smear - Final 01/03/19 20:26 Pleural Fluid Gram Stain - Final 01/03/19 20:26 Pleural Fluid Aerobic and Anaerobic Culture - Final No growth 01/03/19 20:26 Pleural Fluid Acid Fast Bacilli Smear - Final 01/03/19 20:26 Pleural Fluid Acid Fast Bacilli Culture - Preliminary No Acid-Fast Bacilli Isolated - Report 1, Additional Report to Follow. PG Care Time/CCT Total # of Minutes Spent Total Time Spent with Patient: Total time spent is greater than 50% in coordination of care (as documented) at patient's floor/unit and/or counseling patient:
--- NOTE | 2019-01-11 20:10 | Pulmonology Progress Note ---
Date of Service January 11, 2019 Assessment & Plan (1) Acute hypoxemic respiratory failure: Multifactorial related to severe underlying COPD/emphysema and acute pneumonia which appears to be improving slowly. He is also severely deconditioned and malnourished (2) Pneumonia involving right lung: Bronchoscopy performed yesterday and cultures thus far largely unrevealing. BAL cytology is negative for any malignant cells. Scattered macrophages and benign bronchial cells were seen. We will continue to follow cultures. Continue antibiotics as per infectious disease. (3) COPD exacerbation: Will need outpatient pulmonary follow-up. No indication for prednisone at this time. (4) Parapneumonic effusion: Previous thoracentesis 01/03/2019 * Protein 1.6, LDH 187, glucose 132, amylase 27 * Resolved pleural effusions on chest x-ray 01/07/2019 * Follow clinically Subjective Patient eating well. He denies any complaints. No chest pain. No nausea or vomiting. No fevers overnight. Physical Exam Constitutional: + ill appearing, + thin and + cachectic Eyes: PERRL, conjunctivae normal, anicteric sclerae ENMT: Mallampati Class: II Neck: trachea midline, no thyromegaly Respiratory: normal respiratory effort, lungs clear to auscultation + tachypneic Auscultation: + diminished lung sounds, + crackles and + rhonchi (in RUL); no wheezes Cardiovascular: RRR, no murmur, no edema Rate/Rhythm: regular rate Heart Sounds: normal S1, normal S2 and normal, physiologic split S2 Vessels: no JVD Skin: no rashes, warm and dry normal turgor Neurologic: awake Psychiatric: Orientation: alert and oriented x 3 Lymphatic: no lymphedema Results & Data Vital Signs (Past 12 Hours) Vital Signs Temp Pulse Resp BP Pulse Ox 01/11/19 19:18 115 H 18 93 01/11/19 15:25 98.4 F 102 H 34 H 108/67 94 PG Care Time/CCT Total # of Minutes Spent Total Time Spent with Patient: Total time spent is greater than 50% in coordination of care (as documented) at patient's floor/unit and/or counseling patient:
--- NOTE | 2019-01-11 21:02 | Hospitalist Progress Note ---
Date of Service January 11, 2019 Assessment & Plan (1) Pneumonia involving right lung: Patient has been treated for right upper lobe pneumonia and empyema. S/p bronc.Parapneumonic effussion: continue abx, follow bronch cultures. suspect C. albicans from sputum represents normal oral martina, fungal bronch smear negative. Awaiting for the results of bronchoscopy cultures and biopsy. Appreciates infectious diseases and pulmonary consult. Continue with vancomycin and ertapenem per ID recommendation for empyema possible aspiration pneumonia. On discharge switch to Levaquin and doxycycline. Collect sputum culture as recommended by pulmonary. Trend down white blood cell count. Patient had chest tube removed on 01/05. Appears to be an exudate. Continue DuoNebs PRN. Blood cultures so far negative, sputum Gram stain negative acid-fast negative. Monitor daily CBC CMP replenish electrolytes Strict in and out Daily weight weight Continue Guaifenesin extended release 600 mg p.o. twice daily (2) Alcohol withdrawal: Patient will continue on CIWA scale. No signs of withdrawal. (3) Cardiomyopathy: Echo was done on 12/30 for concern for afib (see below). EF is 30-35% with regional wall motion abnormalities. RV is severely dilated. 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 There are regional wall motion abnormalities as specified. Right ventricle is moderately to severely dilated. The right ventricle systolic function is moderately reduced. The right atrium is moderately dilated. There is a moderate tricuspid regurgitation. Right ventricle systolic pressure is elevated to 30-40. (4) Sepsis: Sepsis due to pneumonia growing right upper lobe. - Plan as above. (5) Sinus tachycardia: Initially thought to be in afib with RVR per EKG auto-read; however, he has only been in sinus tachycardia with rates in the 100-120 range. - Stopped heparin gtt - Treating pneumonia - Monitor HR (6) Non-ST elevation MD (NSTEMI): It appears patient did not suffer a NSTEMI, but perhaps demand ischemia. (7) COPD exacerbation: Possibly mild COPD exacerbation with increased shortness of breath. - See above (8) Hypotension: Multifactorial, associated with hypoalbuminemia, cachexia. BP is improving after changing antibiotics on 01/03. (9) Alcohol abuse: Patient drinks approx. 75 beers/wk. (~8-12/day). Per prior notes, had mild withdrawal during last admission. Patient has no interest in quitting and declined any further discussion on his drinking. - Continue CIWA protocol as above - Vitamin supplements. (10) Current every day smoker: Cessation counseling. (11) Severe protein-calorie malnutrition: BMI is 16. Patient appears to not have a good appetite and in the hospital only prefers to drink fluid. This likely shows that patient at home gets his calories from his alcoholic beverages. His low BMI will likely work against him in his recovery. (12) Severe sepsis: Patient having signs of sepsis. WBC improving on 01/04. b/p IS IMPROVING. (13) Acute hypoxemic respiratory failure: Continues to require nasal cannula Will continue to monitor. This is from his right upper lobe pneumonia. Given his worsening, will cover for MRSA, pseUdomonas and anaerobes. (14) Empyema lung: As noted on imaging, patient has a collection of fluid around the right lung. This likely represents an empyema. Has chest tube placed. D/W tin flopper. (15) DVT prophylaxis: Lovenox 40mg Subjective Pt is seen and examined at at the bedside.status post bronchoscopy. Patient does not like rest nor hypertonic saline treatment he said it makes him jim seated.Pt continues on emperic abx. sputum culture scant normal martina,cultures pending. Parapneumonic effusion: continue abx, follow bronch cultures. suspect C. albicans from sputum represents normal oral martina, fungal bronch smear negative. Patient denies fever chills chest pain shortness of breath abdominal pain frequency urgency hematemesis hematuria dysuria melena. Review of Systems Review of Systems: All systems reviewed & are unremarkable except as noted in HPI & below Physical Exam Constitutional: WD/WN, vitals as above + frail appearing Eyes: PERRL, conjunctivae normal, anicteric sclerae ENMT: external ear and nose normal, oropharynx normal Neck: trachea midline, no thyromegaly Respiratory: Auscultation: + crackles, + wheezes, + bronchovesicular breath sounds and + egophony Cardiovascular: RRR, no murmur, no edema Chest (Breasts): normal inspection/palpation of breasts Gastrointestinal (Abdomen): normal bowel sounds, soft, nontender, no hepatosplenomegaly Musculoskeletal: no cyanosis or clubbing, extremities motor strength 5/5 Skin: no rashes, warm and dry Neurologic: patellar DTR's 2+ bilat, sensation intact Results & Data Vital Signs (Past 12 Hours) Vital Signs Temp Pulse Resp BP Pulse Ox 01/11/19 19:18 115 H 18 93 01/11/19 15:25 36.9 C 102 H 34 H 108/67 94 PG Care Time/CCT Total # of Minutes Spent Total Time Spent with Patient: Total time spent is greater than 50% in coordination of care (as documented) at patient's floor/unit and/or counseling patient: (1) Alcohol withdrawal Complication of substance-induced condition: uncomplicated Qualified Code(s): F10.230 - Alcohol dependence with withdrawal, uncomplicated (2) Sepsis Sepsis acute organ dysfunction status: unspecified Sepsis type: sepsis due to unspecified organism Qualified Code(s): A41.9 - Sepsis, unspecified organism
[2019-01-11] MEDS: MULTIVITAMIN TAB PO SCH (21:24)
[2019-01-12] MEDS: VANCOMYCIN HCL 1,000 MG in SODIUM CHLORIDE 0.9% 250 ML IV SCH ×3 (01:20→21:43)
[2019-01-12] MEDS: FORMOTEROL 20 MCG/2 ML VIAL NEB SCH ×2 (07:09→19:05)
[2019-01-12] MEDS: BUDESONIDE 0.5 MG/2 ML VIAL (PULMICORT) NEB SCH ×2 (07:09→19:05)
[2019-01-12] MEDS: LACTOBACILLUS ACIDOPHILUS (FLORANEX) TAB PO SCH ×4 (08:03→21:38)
[2019-01-12] MEDS: DOCUSATE SODIUM/SENNA 50/8.6MG TAB PO SCH (08:03)
[2019-01-12] MEDS: MIDODRINE HCL 2.5 MG TAB PO SCH ×3 (08:04→18:01)
[2019-01-12] MEDS: FOLIC ACID 1 MG TAB PO SCH (08:05)
[2019-01-12] MEDS: PROPRANOLOL HCL 10 MG TAB PO SCH ×2 (08:05→21:36)
[2019-01-12] MEDS: MEGESTROL ACETATE 800 MG/20 ML UDP PO SCH (08:06)
[2019-01-12] MEDS: TIOTROPIUM BROMIDE 5 PUFF/90 MCG INH INH SCH (08:07)
[2019-01-12] MEDS: THIAMINE HCL 100 MG TAB PO SCH ×2 (08:08→21:37)
[2019-01-12] MEDS: ZINC SULFATE 220 MG CAPSULE PO SCH (08:08)
[2019-01-12] MEDS ORDERED: VANCOMYCIN TROUGH ONE (08:30)
[2019-01-12 09:09] LABS: Basophils # (auto) 0.05 K/uL (0-0.2); Basophils % (auto) 0.3 %; Eosinophils # (auto) 0.22 K/uL (0-0.5); Eosinophils % (auto) 1.3 %; Hemoglobin 12.4 g/dL (14.0-18.0); Immature Granulocytes # (auto) 0.15 K/uL (0.00-0.02); Immature Granulocytes % (auto) 0.9 %; Lymphocytes # (auto) 1.15 K/uL (1.2-3.4); Lymphocytes % (auto) 6.6 %; Mean Corpuscular Hemoglobin 32.8 pg (25-34); Mean Corpuscular Hgb Conc 33.5 g/dL (32-36); Mean Corpuscular Volume 97.9 fL (80-100); Monocytes # (auto) 1.02 K/uL (0.11-0.59); Monocytes % (auto) 5.8 %; Neutrophils % (auto) 85.1 %; Platelet Count 367 K/uL (130-400); RDW Coefficient of Variation 13.8 % (11.5-14.5); RDW Standard Deviation 49.7 fL (36.4-46.3); Red Blood Count 3.78 M/uL (4.7-6.1); White Blood Count 17.49 K/uL (4.8-10.8)
[2019-01-12 09:55] LABS: Albumin Level 1.5 gm/dl (3.4-5.0); BUN Creatinine Ratio 12.1 (10-20); Calcium 8.2 mg/dl (8.5-10.1); Creatinine Clr Calc Pharmacy 118.2 ml/min; Est GFR (Non-African American) 123.4; Potassium 3.6 mmol/L (3.5-5.1)
[2019-01-12 09:57] LABS: Albumin Globulin Ratio 0.4 (0.9-2); Bilirubin,Total 0.3 mg/dl (0.2-1); Globulin 3.7 gm/dl (2.5-4.0); Total Protein 5.2 gm/dl (6.4-8.2)
--- NOTE | 2019-01-12 10:38 | Infectious Disease Progress Nt ---
Date of Service January 12, 2019 Assessment & Plan (1) Parapneumonic effusion: continue abx, follow bronch cultures, negative to date. would give 14 days total abx. suspect C. albicans from sputum represents normal oral martina, fungal bronch smear negative. Now also growing rare Aspergillus from sputum culture, suspect this is cononization as well. no evidence on bronch for invasive disease, no hemoptysis, clinically improving. would not add antifungal at this point. Subjective pt seen in followup, states he is doing well. breathing well on RA. afebrile. remains on vanco and ertapenem, emperic therapy for suspected pna. sputum culture on 01/09 growing normal martina, C. albicans and now Aspergillus (rare x 1 and mod x 1) Bronch cultures growing normal martina only, fungal smear and culture negative. no hemoptysis. no f/c. no cp, cough improving, dry, no demarco. no abd pain, no n/v/d. tolerating abx. wbc continues to improve, 17 today. Review of Systems Review of Systems: All systems reviewed & are unremarkable except as noted in HPI & below Physical Exam Constitutional: + thin, + cachectic and + frail appearing; no acute distress Eyes: PERRL, conjunctivae normal, anicteric sclerae ENMT: external ear and nose normal, oropharynx normal Mouth: + poor dentition Neck: normal visual inspection Respiratory: normal respiratory effort; no respiratory distress and no labored breathing Auscultation: + diminished lung sounds and + rhonchi Cardiovascular: Rate/Rhythm: regular rate and regular rhythm Gastrointestinal (Abdomen): normal bowel sounds, soft, nontender, no hepatosplenomegaly Musculoskeletal: no cyanosis or clubbing, extremities motor strength 5/5 Skin: no rashes, warm and dry Psychiatric: A+Ox3, euthymic affect Results & Data Vital Signs (Past 12 Hours) Vital Signs Temp Pulse Resp BP Pulse Ox 01/12/19 08:08 36.6 C 88 93 H 120/76 93 01/12/19 07:11 117 H 18 91 01/11/19 23:00 37.0 C 89 20 116/78 95 Laboratory Results Microbiology 01/09/19 17:00 Sputum, Expectorated Gram Stain - Final 01/09/19 17:00 Sputum, Expectorated Sputum Culture - Final Aspergillus species Zayra albicans 01/09/19 01:52 Sputum, Expectorated Gram Stain - Final 01/09/19 01:52 Sputum, Expectorated Sputum Culture - Final Aspergillus fumigatus Zayra albicans 01/10/19 11:23 Bronch Wash,Right Upper Lobe Gram Stain - Final 01/10/19 11:23 Bronch Wash,Right Upper Lobe Bronchoalveolar Lavage Culture - Preliminary Light normal martina present, final report to follow. 01/10/19 11:23 Bronch Wash,Right Upper Lobe Acid Fast Bacilli Smear - Final 01/10/19 11:23 Bronch Wash,Right Upper Lobe Fungal Smear - Final 01/09/19 17:00 Sputum, Expectorated Fungal Smear - Final 01/03/19 20:26 Pleural Fluid Gram Stain - Final 01/03/19 20:26 Pleural Fluid Aerobic and Anaerobic Culture - Final No growth 01/03/19 20:26 Pleural Fluid Acid Fast Bacilli Smear - Final 01/03/19 20:26 Pleural Fluid Acid Fast Bacilli Culture - Preliminary No Acid-Fast Bacilli Isolated - Report 1, Additional Report to Follow. PG Care Time/CCT Total # of Minutes Spent Total Time Spent with Patient: Total time spent is greater than 50% in coordination of care (as documented) at patient's floor/unit and/or counseling patient:
[2019-01-12] MEDS: ERTAPENEM SODIUM 1,000 MG in SODIUM CHLORIDE 0.9% 50 ML IV SCH (13:27)
--- NOTE | 2019-01-12 14:22 | Pharmacy Report ---
Pharmacy Abx Dose Short Note - Date of Service January 12, 2019 - Assessment & Plan Assessment 58 year old M receiving Vancomycin 1000 mg IV q8h for treatment of Pneumonia. Day # 6 of antimicrobial therapy. Trough Vanc level was drawn to confirm patient is not accumulating Vanco. Last trough level on 01/09 was 19.3. ID consulted. Plan Vancomycin * Trough level of 20.9 mcg/mL is supra-therapeutic today. * Decreased to Vancomycin 1000 mg IV every 10 hours starting at 2200. * Goal trough level for Pneumonia: 15 to 20 mcg/mL * Trough level ordered for: 01/13 before dose at 1800. Pharmacy will continue to follow and will adjust dose/frequency as necessary. Thank you.
--- NOTE | 2019-01-12 15:26 | Hospitalist Progress Note ---
Date of Service January 12, 2019 Assessment & Plan (1) Pneumonia involving right lung: Patient has been treated for right upper lobe pneumonia and empyema. S/p bronc.Parapneumonic effusion: Parapneumonic effusion: continue abx, follow bronch cultures, negative to date. would give 14 days total abx. suspect C. albicans from sputum represents normal oral martina, fungal bronch smear negative. Also growing rare Aspergillus from sputum culture, suspect this is colonization as well. No evidence on branch for invasive disease, no hemoptysis, clinically improving. did not recommend to add antifungal at this point. Awaiting for the results of bronchoscopy cultures and biopsy. Appreciates infectious diseases and pulmonary consult. Continue with vancomycin and ertapenem per ID recommendation for empyema possible aspiration pneumonia. On discharge switch to Levaquin and doxycycline. Collect sputum culture as recommended by pulmonary. Trend down white blood cell count. Patient had chest tube removed on 01/05. Appears to be an exudate. Continue DuoNebs PRN. Blood cultures so far negative, sputum Gram stain negative acid-fast negative. Monitor daily CBC CMP replenish electrolytes Strict in and out Daily weight weight Continue Guaifenesin extended release 600 mg p.o. twice daily (2) Alcohol withdrawal: Patient will continue on CIWA scale. No signs of withdrawal. (3) Cardiomyopathy: Echo was done on 12/30 for concern for afib (see below). EF is 30-35% with regional wall motion abnormalities. RV is severely dilated. 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 There are regional wall motion abnormalities as specified. Right ventricle is moderately to severely dilated. The right ventricle systolic function is moderately reduced. The right atrium is moderately dilated. There is a moderate tricuspid regurgitation. Right ventricle systolic pressure is elevated to 30-40. (4) Sepsis: Sepsis due to pneumonia growing right upper lobe. - Plan as above. (5) Sinus tachycardia: Initially thought to be in afib with RVR per EKG auto-read; however, he has only been in sinus tachycardia with rates in the 100-120 range. - Stopped heparin gtt - Treating pneumonia - Monitor HR (6) Non-ST elevation AK (NSTEMI): It appears patient did not suffer a NSTEMI, but perhaps demand ischemia. (7) COPD exacerbation: Possibly mild COPD exacerbation with increased shortness of breath. - See above (8) Hypotension: Multifactorial, associated with hypoalbuminemia, cachexia. BP is improving after changing antibiotics on 01/03. (9) Alcohol abuse: Patient drinks approx. 75 beers/wk. (~8-12/day). Per prior notes, had mild withdrawal during last admission. Patient has no interest in quitting and declined any further discussion on his drinking. - Continue CIAR protocol as above - Vitamin supplements. (10) Current every day smoker: Cessation counseling. (11) Severe protein-calorie malnutrition: BMI is 16. Patient appears to not have a good appetite and in the hospital only prefers to drink fluid. This likely shows that patient at home gets his calories from his alcoholic beverages. His low BMI will likely work against him in his recovery. (12) Severe sepsis: Patient having signs of sepsis. WBC improving on 01/04. b/p IS IMPROVING. (13) Acute hypoxemic respiratory failure: Continues to require nasal cannula Will continue to monitor. This is from his right upper lobe pneumonia. Given his worsening, will cover for MRSA, pseUdomonas and anaerobes. (14) Empyema lung: As noted on imaging, patient has a collection of fluid around the right lung. This likely represents an empyema. Has chest tube placed. D/W service center appraiser. (15) DVT prophylaxis: Lovenox 40mg Subjective Seen and examined at the bedside. Continues to improve slowly. Afebrile. Continue on vanco and ertapenem, empiric therapy for suspected pneumonia. Sputum culture on 01/09 growing normal martina, C. albicans and Aspergillus (rare x 1 and mod x 1) Bronch cultures growing normal martina only, fungal smear and culture negative. Patient denies hemoptysis fever chills chest pain shortness of breath abdominal pain frequency urgency melena. Cough improving. White blood cells now 17,000 trending down. Patient tolerates antibiotics well. Appreciate infectious diseases consult -no need to treat the spondylosis at this time since does not appear invasive. Review of Systems Review of Systems: All systems reviewed & are unremarkable except as noted in HPI & below Physical Exam Constitutional: WD/WN, vitals as above + frail appearing Eyes: PERRL, conjunctivae normal, anicteric sclerae ENMT: external ear and nose normal, oropharynx normal Neck: trachea midline, no thyromegaly Respiratory: Auscultation: + crackles (improving), + wheezes (improving), + bronchovesicular breath sounds and + egophony Cardiovascular: RRR, no murmur, no edema Chest (Breasts): normal inspection/palpation of breasts Gastrointestinal (Abdomen): normal bowel sounds, soft, nontender, no hepatosplenomegaly Musculoskeletal: no cyanosis or clubbing, extremities motor strength 5/5 Skin: no rashes, warm and dry Neurologic: patellar DTR's 2+ bilat, sensation intact Results & Data Vital Signs (Past 12 Hours) Vital Signs Temp Pulse Resp BP Pulse Ox 01/12/19 08:08 36.6 C 88 93 H 120/76 93 01/12/19 07:11 117 H 18 91 PG Care Time/CCT Total # of Minutes Spent Total Time Spent with Patient: Total time spent is greater than 50% in coordination of care (as documented) at patient's floor/unit and/or counseling patient: (1) Alcohol withdrawal Complication of substance-induced condition: uncomplicated Qualified Code(s): F10.230 - Alcohol dependence with withdrawal, uncomplicated (2) Sepsis Sepsis acute organ dysfunction status: unspecified Sepsis type: sepsis due to unspecified organism Qualified Code(s): A41.9 - Sepsis, unspecified organism
[2019-01-12] MEDS: ONDANSETRON INJ 2 MG/ML 2 ML VIAL IV PRN (20:19)
[2019-01-12] MEDS: MULTIVITAMIN TAB PO SCH (21:38)
[2019-01-13 06:02] LABS: Basophils # (auto) 0.08 K/uL (0-0.2); Basophils % (auto) 0.5 %; Eosinophils # (auto) 0.29 K/uL (0-0.5); Eosinophils % (auto) 1.8 %; Hematocrit (blood only) 33.8 % (42-52); Immature Granulocytes # (auto) 0.15 K/uL (0.00-0.02); Immature Granulocytes % (auto) 0.9 %; Lymphocytes # (auto) 1.29 K/uL (1.2-3.4); Lymphocytes % (auto) 7.8 %; Mean Corpuscular Hemoglobin 32.4 pg (25-34); Mean Corpuscular Hgb Conc 32.5 g/dL (32-36); Mean Corpuscular Volume 99.4 fL (80-100); Mean Platelet Volume 8.9 fL (7.4-10.4); Monocytes # (auto) 1.19 K/uL (0.11-0.59); Monocytes % (auto) 7.2 %; Neutrophils # (auto) 13.57 K/uL (1.4-6.5); Neutrophils % (auto) 81.8 %; Platelet Count 398 K/uL (130-400); RDW Coefficient of Variation 13.9 % (11.5-14.5); RDW Standard Deviation 50.5 fL (36.4-46.3); White Blood Count 16.57 K/uL (4.8-10.8)
[2019-01-13 06:36] LABS: Alanine Aminotransferase 27 U/L (12-78); Albumin Globulin Ratio 0.4 (0.9-2); Albumin Level 1.3 gm/dl (3.4-5.0); Alkaline Phosphatase 96 U/L (45-117); Aspartate Aminotransferase 32 U/L (15-37); BUN Creatinine Ratio 20.8 (10-20); Bilirubin,Total 0.3 mg/dl (0.2-1); Blood Urea Nitrogen 8 mg/dl (7-18); Calcium 7.9 mg/dl (8.5-10.1); Carbon Dioxide 29 mmol/L (21-32); Chloride 106 mmol/L (98-107); Creatinine Clr Calc Pharmacy 138.9 ml/min; Est GFR (African American) > 150.0; Est GFR (Non-African American) 131.9; Globulin 3.5 gm/dl (2.5-4.0); Glucose 94 mg/dl (70-99); Potassium 4.2 mmol/L (3.5-5.1); Sodium 138 mmol/L (136-145); Total Protein 4.8 gm/dl (6.4-8.2)
[2019-01-13] MEDS: FORMOTEROL 20 MCG/2 ML VIAL NEB SCH ×3 (07:07→19:43)
[2019-01-13] MEDS: BUDESONIDE 0.5 MG/2 ML VIAL (PULMICORT) NEB SCH ×3 (07:07→19:43)
[2019-01-13] MEDS: MEGESTROL ACETATE 800 MG/20 ML UDP PO SCH (07:51)
[2019-01-13] MEDS: TIOTROPIUM BROMIDE 5 PUFF/90 MCG INH INH SCH (07:52)
[2019-01-13] MEDS: VANCOMYCIN HCL 1,000 MG in SODIUM CHLORIDE 0.9% 250 ML IV SCH ×2 (07:56→18:09)
[2019-01-13] MEDS: MIDODRINE HCL 2.5 MG TAB PO SCH ×3 (09:02→17:58)
[2019-01-13] MEDS: LACTOBACILLUS ACIDOPHILUS (FLORANEX) TAB PO SCH ×4 (09:02→21:32)
[2019-01-13] MEDS: FOLIC ACID 1 MG TAB PO SCH (09:03)
[2019-01-13] MEDS: PROPRANOLOL HCL 10 MG TAB PO SCH ×2 (09:04→20:59)
[2019-01-13] MEDS: DOCUSATE SODIUM/SENNA 50/8.6MG TAB PO SCH (09:05)
[2019-01-13] MEDS: THIAMINE HCL 100 MG TAB PO SCH ×2 (09:05→21:32)
[2019-01-13] MEDS: ZINC SULFATE 220 MG CAPSULE PO SCH (09:05)
[2019-01-13] MEDS: ERTAPENEM SODIUM 1,000 MG in SODIUM CHLORIDE 0.9% 50 ML IV SCH (11:49)
--- NOTE | 2019-01-13 13:45 | Ultrasound Report ---
BILATERAL LOWER EXTREMITY VENOUS DOPPLER CLINICAL HISTORY: cold and mottled feet COMPARISON STUDY: No previous studies for comparison. TECHNIQUE: Sonography of the deep venous system of the bilateral lower extremities was performed. Co mpression and augmentation were evaluated. FINDINGS: The bilateral common femoral, superficial femoral and popliteal veins were compressible. A ugmentation was normal. Flow was shown within the deep calf vessels. Note was made of bilateral lower extremity subcutaneous edema. IMPRESSION: No evidence of deep venous thrombus within the bilateral lower extremities. Electronically signed by: Randolph Arredondo M.D. 01/13/2019 1:44 PM
--- NOTE | 2019-01-13 14:13 | Ultrasound Report ---
US ankle/brachial index comp CLINICAL HISTORY: cold and mottled feet COMPARISON STUDY: No previous studies for comparison. FINDINGS: The right ankle to brachial index measured 1.03 when using posterior tibial artery and 1 wh en using the dorsalis pedis. The left ankle-brachial index measured 1.03 when using posterior tibial artery and 0.9 when using the dorsalis pedis. IMPRESSION: Normal bilateral ankle to brachial indices. Electronically signed by: Randolph Arredondo M.D. 01/13/2019 2:11 PM
--- NOTE | 2019-01-13 14:59 | Hospitalist Progress Note ---
Date of Service January 13, 2019 Assessment & Plan (1) Pneumonia involving right lung: Patient has been treated for right upper lobe pneumonia and empyema. S/p bronc.Parapneumonic effusion: Parapneumonic effusion: continue abx, follow bronch cultures, negative to date. would give 14 days total abx. suspect C. albicans from sputum represents normal oral martina, fungal bronch smear negative. Also growing rare Aspergillus from sputum culture, suspect this is colonization as well. No evidence on branch for invasive disease, no hemoptysis, clinically improving. did not recommend to add antifungal at this point. Awaiting for the results of bronchoscopy cultures and biopsy. Appreciates infectious diseases and pulmonary consult. Continue with vancomycin and ertapenem per ID recommendation for empyema possible aspiration pneumonia. On discharge switch to Levaquin and doxycycline. Collect sputum culture as recommended by pulmonary. Trend down white blood cell count. Patient had chest tube removed on 01/05. Appears to be an exudate. Continue DuoNebs PRN. Blood cultures so far negative, sputum Gram stain negative acid-fast negative. Monitor daily CBC CMP replenish electrolytes Strict in and out Daily weight weight Continue Guaifenesin extended release 600 mg p.o. twice daily (2) Alcohol withdrawal: Patient will continue on CIWA scale. No signs of withdrawal. (3) Cardiomyopathy: Echo was done on 12/30 for concern for afib (see below). EF is 30-35% with regional wall motion abnormalities. RV is severely dilated. 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 There are regional wall motion abnormalities as specified. Right ventricle is moderately to severely dilated. The right ventricle systolic function is moderately reduced. The right atrium is moderately dilated. There is a moderate tricuspid regurgitation. Right ventricle systolic pressure is elevated to 30-40. (4) Sepsis: Sepsis due to pneumonia growing right upper lobe. - Plan as above. (5) Sinus tachycardia: Initially thought to be in afib with RVR per EKG auto-read; however, he has only been in sinus tachycardia with rates in the 100-120 range. - Stopped heparin gtt - Treating pneumonia - Monitor HR (6) Non-ST elevation [place] (NSTEMI): It appears patient did not suffer a NSTEMI, but perhaps demand ischemia. (7) COPD exacerbation: Possibly mild COPD exacerbation with increased shortness of breath. - See above (8) Hypotension: Multifactorial, associated with hypoalbuminemia, cachexia. BP is improving after changing antibiotics on 01/03. (9) Alcohol abuse: Patient drinks approx. 75 beers/wk. (~8-12/day). Per prior notes, had mild withdrawal during last admission. Patient has no interest in quitting and declined any further discussion on his drinking. - Continue CIMA protocol as above - Vitamin supplements. (10) Current every day smoker: Cessation counseling. (11) Severe protein-calorie malnutrition: BMI is 16. Patient appears to not have a good appetite and in the hospital only prefers to drink fluid. This likely shows that patient at home gets his calories from his alcoholic beverages. His low BMI will likely work against him in his recovery. (12) Severe sepsis: Patient having signs of sepsis. WBC improving on 01/04. b/p IS IMPROVING. (13) Acute hypoxemic respiratory failure: Continues to require nasal cannula Will continue to monitor. This is from his right upper lobe pneumonia. Given his worsening, will cover for MRSA, pseUdomonas and anaerobes. (14) Empyema lung: As noted on imaging, patient has a collection of fluid around the right lung. This likely represents an empyema. Has chest tube placed. D/W gauge inspector. (15) DVT prophylaxis: Lovenox 40mg Subjective Seen and examined at the bedside. Continues to improve slowly. Afebrile. This morning on exam patient both lower extremities were dusky color and mottled and it was difficult to palpate the pulse in his right lower extremities. Ordered A BI and venous Doppler and both were negative for pathology. It appears that lower extremities are mildly edematous but circulation is still adequate. Continue on vanco and ertapenem, empiric therapy for suspected pneumonia. Sputum culture on 01/09 growing normal martina, C. albicans and Aspergillus (rare x 1 and mod x 1) Bronch cultures growing normal martina only, fungal smear and culture negative. Patient denies hemoptysis fever chills chest pain shortness of breath abdominal pain frequency urgency melena. Cough improving. White blood cells now 17,000 trending down. Patient tolerates antibiotics well. Appreciate infectious diseases consult -no need to treat the Aspergillus Fumigatus at this time since does not appear invasive. Review of Systems Review of Systems: All systems reviewed & are unremarkable except as noted in HPI & below Physical Exam Constitutional: WD/WN, vitals as above + frail appearing Eyes: PERRL, conjunctivae normal, anicteric sclerae ENMT: external ear and nose normal, oropharynx normal Neck: trachea midline, no thyromegaly Respiratory: Auscultation: + crackles (improving), + wheezes (improving), + bronchovesicular breath sounds and + egophony Cardiovascular: RRR, no murmur, no edema Chest (Breasts): normal inspection/palpation of breasts Gastrointestinal (Abdomen): normal bowel sounds, soft, nontender, no hepatosplenomegaly Musculoskeletal: no cyanosis or clubbing, extremities motor strength 5/5 Skin: no rashes, warm and dry Neurologic: patellar DTR's 2+ bilat, sensation intact Results & Data Vital Signs (Past 12 Hours) Vital Signs Temp Pulse Resp BP Pulse Ox 01/13/19 07:49 36.8 C 91 H 20 117/77 98 01/13/19 07:08 78 16 96 PG Care Time/CCT Total # of Minutes Spent Total Time Spent with Patient: Total time spent is greater than 50% in coordination of care (as documented) at patient's floor/unit and/or counseling patient: (1) Alcohol withdrawal Complication of substance-induced condition: uncomplicated Qualified Code(s): F10.230 - Alcohol dependence with withdrawal, uncomplicated (2) Sepsis Sepsis acute organ dysfunction status: unspecified Sepsis type: sepsis due to unspecified organism Qualified Code(s): A41.9 - Sepsis, unspecified organism
[2019-01-13] MEDS ORDERED: VANCOMYCIN TROUGH ONE (17:30)
--- NOTE | 2019-01-13 20:11 | Pharmacy Report ---
Pharmacy Abx Dose Short Note - Date of Service January 13, 2019 - Assessment & Plan Assessment 58 year old M receiving Vancomycin 1000mg Q10H for treatment of pneumonia/empyema Day # 7 of antimicrobial therapy. Laboratory Tests 01/13/19 18:02 Vancomycin Trough 15.8 Plan Vancomycin * Trough level of 15.8 mcg/mL is therapeutic, however was obtained after only 2 doses of new regimen. * Continue dose of 15.8 mg IV every 10 hours. * Goal trough level : 15 to 20 mcg/mL * Trough level ordered for: 01/13/19 before 1400 dose. Pharmacy will continue to follow and will adjust dose/frequency as necessary. Thank you.
[2019-01-13] MEDS: MULTIVITAMIN TAB PO SCH (21:32)
[2019-01-14] MEDS: VANCOMYCIN HCL 1,000 MG in SODIUM CHLORIDE 0.9% 250 ML IV SCH ×2 (05:27→14:42)
[2019-01-14] MEDS: BUDESONIDE 0.5 MG/2 ML VIAL (PULMICORT) NEB SCH ×2 (07:01→19:41)
[2019-01-14] MEDS: FORMOTEROL 20 MCG/2 ML VIAL NEB SCH ×2 (07:01→19:41)
[2019-01-14] MEDS: TIOTROPIUM BROMIDE 5 PUFF/90 MCG INH INH SCH (08:04)
[2019-01-14] MEDS: FOLIC ACID 1 MG TAB PO SCH (08:06)
[2019-01-14] MEDS: LACTOBACILLUS ACIDOPHILUS (FLORANEX) TAB PO SCH ×4 (08:06→21:11)
[2019-01-14] MEDS: MIDODRINE HCL 2.5 MG TAB PO SCH ×3 (08:06→16:42)
[2019-01-14] MEDS: ZINC SULFATE 220 MG CAPSULE PO SCH (08:07)
[2019-01-14] MEDS: DOCUSATE SODIUM/SENNA 50/8.6MG TAB PO SCH (08:07)
[2019-01-14] MEDS: MEGESTROL ACETATE 800 MG/20 ML UDP PO SCH (08:07)
[2019-01-14] MEDS: THIAMINE HCL 100 MG TAB PO SCH ×2 (08:07→21:11)
[2019-01-14] MEDS: PROPRANOLOL HCL 10 MG TAB PO SCH ×2 (08:07→21:12)
[2019-01-14] MEDS: ERTAPENEM SODIUM 1,000 MG in SODIUM CHLORIDE 0.9% 50 ML IV SCH (12:53)
[2019-01-14] MEDS ORDERED: VANCOMYCIN TROUGH ONE (13:30)
--- NOTE | 2019-01-14 16:01 | Pharmacy Report ---
Pharmacy Abx Dose Short Note - Date of Service January 14, 2019 - Assessment & Plan Laboratory Tests 01/14/19 13:39 Vancomycin Trough 15.8 Assessment 58 year old M receiving Vancomycin 1000mg IV Q10H and Invanz 1gm Q24H for treatment of right upper lobe pneumonia and empyema. Day #7 of antimicrobial therapy; Amos recommends total of 14 days. Plan Vancomycin * Trough level of 15.8 mcg/mL is therapeutic * Continue dose of 1000 mg IV every 10 hours * Goal trough level for PNA: 15 to 20 mcg/mL * Trough level ordered for: 01/16/19 at 0530 Pharmacy will continue to follow and will adjust dose/frequency as necessary. Thank you.
--- NOTE | 2019-01-14 16:39 | Hospitalist Progress Note ---
Date of Service January 14, 2019 Assessment & Plan (1) Pneumonia involving right lung: Patient has been treated for right upper lobe pneumonia and empyema. S/p bronc.Parapneumonic effusion: Parapneumonic effusion: continue abx, follow bronch cultures, negative to date. would give 14 days total abx. suspect C. albicans from sputum represents normal oral martina, fungal bronch smear negative. Also growing rare Aspergillus from sputum culture, suspect this is colonization as well. No evidence on branch for invasive disease, no hemoptysis, clinically improving. did not recommend to add antifungal at this point. Appreciates infectious diseases and pulmonary consult. Continue with vancomycin and ertapenem per ID recommendation for empyema possible aspiration pneumonia. On discharge switch to Levaquin and doxycycline. Collect sputum culture as recommended by pulmonary. Trend down white blood cell count. Patient had chest tube removed on 01/05. Appears to be an exudate. Continue DuoNebs PRN. Blood cultures so far negative, sputum Gram stain negative acid-fast negative. Monitor daily CBC CMP replenish electrolytes Strict in and out Daily weight weight Continue Guaifenesin extended release 600 mg p.o. twice daily (2) Alcohol withdrawal: Patient will continue on CIWA scale. No signs of withdrawal. (3) Cardiomyopathy: Echo was done on 12/30 for concern for afib (see below). EF is 30-35% with regional wall motion abnormalities. RV is severely dilated. 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 There are regional wall motion abnormalities as specified. Right ventricle is moderately to severely dilated. The right ventricle systolic function is moderately reduced. The right atrium is moderately dilated. There is a moderate tricuspid regurgitation. Right ventricle systolic pressure is elevated to 30-40. (4) Sepsis: Sepsis due to pneumonia growing right upper lobe. - Plan as above. (5) Sinus tachycardia: Initially thought to be in afib with RVR per EKG auto-read; however, he has only been in sinus tachycardia with rates in the 100-120 range. - Stopped heparin gtt - Treating pneumonia - Monitor HR (6) Non-ST elevation [place] (NSTEMI): It appears patient did not suffer a NSTEMI, but perhaps demand ischemia. (7) COPD exacerbation: Possibly mild COPD exacerbation with increased shortness of breath. - See above (8) Hypotension: Multifactorial, associated with hypoalbuminemia, cachexia. BP is improving after changing antibiotics on 01/03. (9) Alcohol abuse: Patient drinks approx. 75 beers/wk. (~8-12/day). Per prior notes, had mild withdrawal during last admission. Patient has no interest in quitting and declined any further discussion on his drinking. - Continue CIWA protocol as above - Vitamin supplements. (10) Current every day smoker: Cessation counseling. (11) Severe protein-calorie malnutrition: BMI is 16. Patient appears to not have a good appetite and in the hospital only prefers to drink fluid. This likely shows that patient at home gets his calories from his alcoholic beverages. His low BMI will likely work against him in his recovery. (12) Severe sepsis: Patient having signs of sepsis. WBC improving on 01/04. b/p IS IMPROVING. (13) Acute hypoxemic respiratory failure: Continues to require nasal cannula Will continue to monitor. This is from his right upper lobe pneumonia. Given his worsening, will cover for MRSA, pseUdomonas and anaerobes. (14) Empyema lung: As noted on imaging, patient has a collection of fluid around the right lung. This likely represents an empyema. Has chest tube placed. D/W transportation clerk. (15) DVT prophylaxis: Lovenox 40mg Subjective Seen and examined at the bedside. Continues to improve slowly. Afebrile. REG and venous Doppler and both were negative for pathology.relation both lower extremities appropriate. Continue on vanco and ertapenem, empiric therapy for suspected pneumonia. Sputum culture on 01/09 growing normal martina, C. albicans and Aspergillus (rare x 1 and mod x 1) Bronch cultures growing normal martina only, fungal smear and culture negative. Patient denies hemoptysis fever chills chest pain shortness of breath abdominal pain frequency urgency melena. Cough improving. White blood cells now 17,000 -->16, 000trending down. Patient tolerates antibiotics well. Appreciate infectious diseases consult -no need to treat the Aspergillus Fumigatus at this time since does not appear invasive. Review of Systems Review of Systems: All systems reviewed & are unremarkable except as noted in HPI & below Physical Exam Constitutional: WD/WN, vitals as above + frail appearing Eyes: PERRL, conjunctivae normal, anicteric sclerae ENMT: external ear and nose normal, oropharynx normal Neck: trachea midline, no thyromegaly Respiratory: normal respiratory effort, lungs clear to auscultation Cardiovascular: RRR, no murmur, no edema Chest (Breasts): normal inspection/palpation of breasts Gastrointestinal (Abdomen): normal bowel sounds, soft, nontender, no hepatosplenomegaly Musculoskeletal: no cyanosis or clubbing, extremities motor strength 5/5 Skin: + dry skin Dusky if exposed to cold Neurologic: patellar DTR's 2+ bilat, sensation intact Psychiatric: A+Ox3, euthymic affect Patient is alcoholic. He would benefit from AA Genitourinary: no testicular masses, no penis abnormality Lymphatic: no cervical or axillary lymphadenopathy Results & Data Vital Signs (Past 12 Hours) Vital Signs Temp Pulse Resp BP BP Pulse Ox 01/14/19 15:00 36.5 C 105 H 20 112/80 94 01/14/19 07:35 36.5 C 100 H 22 121/82 96 01/14/19 07:04 82 16 92 PG Care Time/CCT Total # of Minutes Spent Total Time Spent with Patient: Total time spent is greater than 50% in coordination of care (as documented) at patient's floor/unit and/or counseling patient: (1) Alcohol withdrawal Complication of substance-induced condition: uncomplicated Qualified Code(s): F10.230 - Alcohol dependence with withdrawal, uncomplicated (2) Sepsis Sepsis acute organ dysfunction status: unspecified Sepsis type: sepsis due to unspecified organism Qualified Code(s): A41.9 - Sepsis, unspecified organism
[2019-01-14] MEDS: MULTIVITAMIN TAB PO SCH (21:11)
[2019-01-15] MEDS: VANCOMYCIN HCL 1,000 MG in SODIUM CHLORIDE 0.9% 250 ML IV SCH ×3 (00:01→21:09)
[2019-01-15 06:50] LABS: Creatinine Clr Calc Pharmacy 146.2 ml/min; Est GFR (African American) > 150.0; Est GFR (Non-African American) 134.7
[2019-01-15] MEDS: BUDESONIDE 0.5 MG/2 ML VIAL (PULMICORT) NEB SCH (06:59)
[2019-01-15] MEDS: FORMOTEROL 20 MCG/2 ML VIAL NEB SCH (06:59)
[2019-01-15] MEDS: PROPRANOLOL HCL 10 MG TAB PO SCH ×3 (07:49→21:09)
[2019-01-15] MEDS: FOLIC ACID 1 MG TAB PO SCH (07:49)
[2019-01-15] MEDS: MIDODRINE HCL 2.5 MG TAB PO SCH ×3 (07:49→16:44)
[2019-01-15] MEDS: THIAMINE HCL 100 MG TAB PO SCH ×2 (07:50→21:10)
[2019-01-15] MEDS: LACTOBACILLUS ACIDOPHILUS (FLORANEX) TAB PO SCH ×4 (07:51→21:09)
[2019-01-15] MEDS: MEGESTROL ACETATE 800 MG/20 ML UDP PO SCH (07:51)
[2019-01-15] MEDS: ZINC SULFATE 220 MG CAPSULE PO SCH (07:52)
[2019-01-15] MEDS: DOCUSATE SODIUM/SENNA 50/8.6MG TAB PO SCH (07:52)
[2019-01-15] MEDS: TIOTROPIUM BROMIDE 5 PUFF/90 MCG INH INH SCH (08:14)
[2019-01-15] MEDS: ERTAPENEM SODIUM 1,000 MG in SODIUM CHLORIDE 0.9% 50 ML IV SCH (11:47)
--- NOTE | 2019-01-15 19:17 | Hospitalist Progress Note ---
Date of Service January 15, 2019 Assessment & Plan (1) Pneumonia involving right lung: Patient has been treated for right upper lobe pneumonia and empyema. S/p bronc.Parapneumonic effusion: Parapneumonic effusion: continue abx, follow bronch cultures, negative to date. would give 14 days total abx. suspect C. albicans from sputum represents normal oral martina, fungal bronch smear negative. Also growing rare Aspergillus from sputum culture, suspect this is colonization as well. No evidence on branch for invasive disease, no hemoptysis, clinically improving. did not recommend to add antifungal at this point. Appreciates infectious diseases and pulmonary consult. Continue with vancomycin and ertapenem per ID recommendation for empyema possible aspiration pneumonia. On discharge switch to Levaquin and doxycycline. Collect sputum culture as recommended by pulmonary. Trend down white blood cell count. Patient had chest tube removed on 01/05. Appears to be an exudate. Continue DuoNebs PRN. Blood cultures so far negative, sputum Gram stain negative acid-fast negative. Monitor daily CBC CMP replenish electrolytes Strict in and out Daily weight weight Continue Guaifenesin extended release 600 mg p.o. twice daily (2) Alcohol withdrawal: Patient will continue on CIWA scale. No signs of withdrawal. (3) Cardiomyopathy: Echo was done on 12/30 for concern for afib (see below). EF is 30-35% with regional wall motion abnormalities. RV is severely dilated. 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 There are regional wall motion abnormalities as specified. Right ventricle is moderately to severely dilated. The right ventricle systolic function is moderately reduced. The right atrium is moderately dilated. There is a moderate tricuspid regurgitation. Right ventricle systolic pressure is elevated to 30-40. (4) Sepsis: Sepsis due to pneumonia growing right upper lobe. - Plan as above. (5) Sinus tachycardia: Initially thought to be in afib with RVR per EKG auto-read; however, he has only been in sinus tachycardia with rates in the 100-120 range. - Stopped heparin gtt - Treating pneumonia - Monitor HR (6) Non-ST elevation [place] (NSTEMI): It appears patient did not suffer a NSTEMI, but perhaps demand ischemia. (7) COPD exacerbation: Possibly mild COPD exacerbation with increased shortness of breath. - See above (8) Hypotension: Multifactorial, associated with hypoalbuminemia, cachexia. BP is improving after changing antibiotics on 01/03. (9) Alcohol abuse: Patient drinks approx. 75 beers/wk. (~8-12/day). Per prior notes, had mild withdrawal during last admission. Patient has no interest in quitting and declined any further discussion on his drinking. - Continue CIWA protocol as above - Vitamin supplements. (10) Current every day smoker: Cessation counseling. (11) Severe protein-calorie malnutrition: BMI is 16. Patient appears to not have a good appetite and in the hospital only prefers to drink fluid. This likely shows that patient at home gets his calories from his alcoholic beverages. His low BMI will likely work against him in his recovery. (12) Severe sepsis: Patient having signs of sepsis. WBC improving on 01/04. b/p IS IMPROVING. (13) Acute hypoxemic respiratory failure: Continues to require nasal cannula Will continue to monitor. This is from his right upper lobe pneumonia. Given his worsening, will cover for MRSA, pseUdomonas and anaerobes. (14) Empyema lung: As noted on imaging, patient has a collection of fluid around the right lung. This likely represents an empyema. Has chest tube placed. D/W advertising copywriter. (15) DVT prophylaxis: Lovenox 40mg Subjective Seen and examined at the bedside. Continues to improve slowly. Afebrile. REG and venous Doppler and both were negative for pathology.relation both lower extremities appropriate. Continue on vanco and ertapenem, empiric therapy for suspected pneumonia. Sputum culture on 01/09 growing normal martina, C. albicans and Aspergillus (rare x 1 and mod x 1) Bronch cultures growing normal martina only, fungal smear and culture negative. Patient denies hemoptysis fever chills chest pain shortness of breath abdominal pain frequency urgency melena. Cough improving. White blood cells now 17,000 -->16, 000trending down. Patient tolerates antibiotics well. Appreciate infectious diseases consult -no need to treat the Aspergillus Fumigatus at this time since does not appear invasive. Review of Systems Review of Systems: The patient denies palpitations, lower extremity swelling, sore throat, fevers, chills, sweats, nausea, vomiting, diarrhea , constipation, abdominal pain, pelvic pain, blood in urine or stool, dysuria, urinary frequency or urgency, lightheadedness, dizziness, headache, memory loss, loss of consciousness, rash, abnormal bruising or bleeding, imbalance, focal or generalized weakness, numbness or tingling in arms or legs, generalized arthralgias or myalgias, back or neck pain, or night sweats. The review of systems is otherwise negative other than for that already noted above, and at least 10 systems have been reviewed. Constitutional: + weakness Respiratory: + cough; no change in sputum and no dyspnea Physical Exam Constitutional: WD/WN, vitals as above + frail appearing Eyes: PERRL, conjunctivae normal, anicteric sclerae ENMT: external ear and nose normal, oropharynx normal Neck: trachea midline, no thyromegaly Respiratory: normal respiratory effort, lungs clear to auscultation Auscultation: + crackles (improving), + wheezes (improving), + bronchovesicular breath sounds and + egophony Cardiovascular: RRR, no murmur, no edema Chest (Breasts): normal inspection/palpation of breasts Gastrointestinal (Abdomen): normal bowel sounds, soft, nontender, no hepatosplenomegaly Musculoskeletal: no cyanosis or clubbing, extremities motor strength 5/5 Skin: no rashes, warm and dry + dry skin Neurologic: patellar DTR's 2+ bilat, sensation intact Psychiatric: A+Ox3, euthymic affect Genitourinary: no testicular masses, no penis abnormality Lymphatic: no cervical or axillary lymphadenopathy Results & Data Vital Signs (Past 12 Hours) Vital Signs Temp Pulse Resp BP Pulse Ox 01/15/19 15:04 36.6 C 105 H 17 107/73 93 01/15/19 07:20 36.7 C 103 H 17 116/71 98 PG Care Time/CCT Total # of Minutes Spent Total Time Spent with Patient: Total time spent is greater than 50% in coordination of care (as documented) at patient's floor/unit and/or counseling patient: (1) Alcohol withdrawal Complication of substance-induced condition: uncomplicated Qualified Code(s): F10.230 - Alcohol dependence with withdrawal, uncomplicated (2) Sepsis Sepsis acute organ dysfunction status: unspecified Sepsis type: sepsis due to unspecified organism Qualified Code(s): A41.9 - Sepsis, unspecified organism
[2019-01-15] MEDS: MULTIVITAMIN TAB PO SCH (21:10)
[2019-01-16] MEDS ORDERED: VANCOMYCIN TROUGH ONE (05:30)
[2019-01-16] MEDS: VANCOMYCIN HCL 1,000 MG in SODIUM CHLORIDE 0.9% 250 ML IV SCH ×2 (05:46→16:01)
[2019-01-16 07:36] LABS: Basophils # (auto) 0.05 K/uL (0-0.2); Basophils % (auto) 0.3 %; Eosinophils # (auto) 0.46 K/uL (0-0.5); Eosinophils % (auto) 3.1 %; Hematocrit (blood only) 33.8 % (42-52); Hemoglobin 11.4 g/dL (14.0-18.0); Immature Granulocytes # (auto) 0.11 K/uL (0.00-0.02); Immature Granulocytes % (auto) 0.7 %; Lymphocytes # (auto) 1.47 K/uL (1.2-3.4); Lymphocytes % (auto) 9.9 %; Mean Corpuscular Hemoglobin 32.8 pg (25-34); Mean Corpuscular Hgb Conc 33.7 g/dL (32-36); Mean Corpuscular Volume 97.1 fL (80-100); Mean Platelet Volume 8.6 fL (7.4-10.4); Monocytes # (auto) 1.48 K/uL (0.11-0.59); Neutrophils # (auto) 11.28 K/uL (1.4-6.5); Platelet Count 496 K/uL (130-400); RDW Standard Deviation 49.6 fL (36.4-46.3); Red Blood Count 3.48 M/uL (4.7-6.1); White Blood Count 14.85 K/uL (4.8-10.8)
[2019-01-16] MEDS: FOLIC ACID 1 MG TAB PO SCH (07:58)
[2019-01-16] MEDS: THIAMINE HCL 100 MG TAB PO SCH ×2 (07:58→20:58)
[2019-01-16] MEDS: ZINC SULFATE 220 MG CAPSULE PO SCH (07:58)
[2019-01-16] MEDS: PROPRANOLOL HCL 10 MG TAB PO SCH ×2 (07:59→20:57)
[2019-01-16] MEDS: MEGESTROL ACETATE 800 MG/20 ML UDP PO SCH (08:00)
[2019-01-16 08:01] LABS: Alanine Aminotransferase 82 U/L (12-78); Albumin Level 1.5 gm/dl (3.4-5.0); Aspartate Aminotransferase 75 U/L (15-37); BUN Creatinine Ratio 26.2 (10-20); Blood Urea Nitrogen 10 mg/dl (7-18); Calcium 8.3 mg/dl (8.5-10.1); Carbon Dioxide 26 mmol/L (21-32); Chloride 106 mmol/L (98-107); Creatinine Clr Calc Pharmacy 142.5 ml/min; Est GFR (African American) > 150.0; Est GFR (Non-African American) 133.2; Glucose 75 mg/dl (70-99); Potassium 4.1 mmol/L (3.5-5.1); Sodium 138 mmol/L (136-145)
[2019-01-16] MEDS: DOCUSATE SODIUM/SENNA 50/8.6MG TAB PO SCH (08:02)
[2019-01-16] MEDS: LACTOBACILLUS ACIDOPHILUS (FLORANEX) TAB PO SCH ×5 (08:02→21:00)
[2019-01-16 08:03] LABS: Albumin Globulin Ratio 0.4 (0.9-2); Alkaline Phosphatase 86 U/L (45-117); Bilirubin,Total 0.2 mg/dl (0.2-1); Globulin 4.1 gm/dl (2.5-4.0); Total Protein 5.6 gm/dl (6.4-8.2)
[2019-01-16] MEDS: MIDODRINE HCL 2.5 MG TAB PO SCH ×3 (08:03→16:09)
[2019-01-16] MEDS: TIOTROPIUM BROMIDE 5 PUFF/90 MCG INH INH SCH (08:11)
[2019-01-16] MEDS: ERTAPENEM SODIUM 1,000 MG in SODIUM CHLORIDE 0.9% 50 ML IV SCH (12:05)
--- NOTE | 2019-01-16 15:02 | Hospitalist Progress Note ---
Date of Service January 16, 2019 Assessment & Plan (1) Pneumonia involving right lung: Patient has been treated for right upper lobe pneumonia and empyema. S/p bronc.Parapneumonic effusion: Parapneumonic effusion: continue abx, follow bronch cultures, negative to date. would give 14 days total abx. suspect C. albicans from sputum represents normal oral martina, fungal bronch smear negative. Also growing rare Aspergillus from sputum culture, suspect this is colonization as well. No evidence on branch for invasive disease, no hemoptysis, clinically improving. did not recommend to add antifungal at this point. Appreciates infectious diseases and pulmonary consult. Continue with vancomycin and ertapenem per ID recommendation for empyema possible aspiration pneumonia. On discharge switch to Levaquin and doxycycline. Collect sputum culture as recommended by pulmonary. Trend down white blood cell count. Patient had chest tube removed on 01/05. Appears to be an exudate. Continue DuoNebs PRN. Blood cultures so far negative, sputum Gram stain negative acid-fast negative. Monitor daily CBC CMP replenish electrolytes Strict in and out Daily weight weight Continue Guaifenesin extended release 600 mg p.o. twice daily (2) Alcohol withdrawal: Patient will continue on CIWA scale. No signs of withdrawal. (3) Cardiomyopathy: Echo was done on 12/30 for concern for afib (see below). EF is 30-35% with regional wall motion abnormalities. RV is severely dilated. 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 There are regional wall motion abnormalities as specified. Right ventricle is moderately to severely dilated. The right ventricle systolic function is moderately reduced. The right atrium is moderately dilated. There is a moderate tricuspid regurgitation. Right ventricle systolic pressure is elevated to 30-40. (4) Sepsis: Sepsis due to pneumonia growing right upper lobe. - Plan as above. (5) Sinus tachycardia: Initially thought to be in afib with RVR per EKG auto-read; however, he has only been in sinus tachycardia with rates in the 100-120 range. - Stopped heparin gtt - Treating pneumonia - Monitor HR (6) Non-ST elevation [place] (NSTEMI): It appears patient did not suffer a NSTEMI, but perhaps demand ischemia. (7) COPD exacerbation: Possibly mild COPD exacerbation with increased shortness of breath. - See above (8) Hypotension: Multifactorial, associated with hypoalbuminemia, cachexia. BP is improving after changing antibiotics on 01/03. (9) Alcohol abuse: Patient drinks approx. 75 beers/wk. (~8-12/day). Per prior notes, had mild withdrawal during last admission. Patient has no interest in quitting and declined any further discussion on his drinking. - Continue CIWA protocol as above - Vitamin supplements. (10) Current every day smoker: Cessation counseling. (11) Severe protein-calorie malnutrition: BMI is 16. Patient appears to not have a good appetite and in the hospital only prefers to drink fluid. This likely shows that patient at home gets his calories from his alcoholic beverages. His low BMI will likely work against him in his recovery. (12) Severe sepsis: Patient having signs of sepsis. WBC improving on 01/04. b/p IS IMPROVING. (13) Acute hypoxemic respiratory failure: Continues to require nasal cannula Will continue to monitor. This is from his right upper lobe pneumonia. Given his worsening, will cover for MRSA, pseUdomonas and anaerobes. (14) Empyema lung: As noted on imaging, patient has a collection of fluid around the right lung. This likely represents an empyema. Has chest tube placed. D/W quality manager. (15) DVT prophylaxis: Lovenox 40mg Subjective Seen and examined at the bedside. Continues to improve slowly. Afebrile. REG and venous Doppler and both were negative for pathology.relation both lower extremities appropriate. Continue on vanco and ertapenem, empiric therapy for suspected pneumonia. Sputum culture on 01/09 growing normal martina, C. albicans and Aspergillus (rare x 1 and mod x 1) Bronch cultures growing normal martina only, fungal smear and culture negative. Patient denies hemoptysis fever chills chest pain shortness of breath abdominal pain frequency urgency melena. Cough improving. White blood cells now 17,000 -->16, 000-->14,000 trending down. Patient tolerates antibiotics well. Appreciate infectious diseases consult -no need to treat the Aspergillus Fumigatus at this time since does not appear invasive. Review of Systems Review of Systems: All systems reviewed & are unremarkable except as noted in HPI & below Constitutional: + weakness Respiratory: + cough; no change in sputum and no dyspnea Physical Exam Constitutional: WD/WN, vitals as above + frail appearing Eyes: PERRL, conjunctivae normal, anicteric sclerae ENMT: external ear and nose normal, oropharynx normal Neck: trachea midline, no thyromegaly Respiratory: normal respiratory effort, lungs clear to auscultation Auscultation: + crackles (improving), + wheezes (improving), + bronchovesicular breath sounds and + egophony Cardiovascular: RRR, no murmur, no edema Chest (Breasts): normal inspection/palpation of breasts Gastrointestinal (Abdomen): normal bowel sounds, soft, nontender, no hepatosplenomegaly Musculoskeletal: no cyanosis or clubbing, extremities motor strength 5/5 Skin: no rashes, warm and dry + dry skin Neurologic: patellar DTR's 2+ bilat, sensation intact Psychiatric: A+Ox3, euthymic affect Genitourinary: no testicular masses, no penis abnormality Lymphatic: no cervical or axillary lymphadenopathy Results & Data Vital Signs (Past 12 Hours) Vital Signs Temp Pulse Resp BP Pulse Ox 01/16/19 06:55 36.8 C 102 H 20 115/75 93 PG Care Time/CCT Total # of Minutes Spent Total Time Spent with Patient: Total time spent is greater than 50% in coordination of care (as documented) at patient's floor/unit and/or counseling patient: (1) Alcohol withdrawal Complication of substance-induced condition: uncomplicated Qualified Code(s): F10.230 - Alcohol dependence with withdrawal, uncomplicated (2) Sepsis Sepsis acute organ dysfunction status: unspecified Sepsis type: sepsis due to unspecified organism Qualified Code(s): A41.9 - Sepsis, unspecified organism
[2019-01-16] MEDS: ONDANSETRON INJ 2 MG/ML 2 ML VIAL IV PRN (20:49)
[2019-01-16] MEDS: MULTIVITAMIN TAB PO SCH (21:00)
[2019-01-16] MEDS: ALUMINUM/MAGNESIUM SUSP 30 ML UDC PO PRN (22:32)
[2019-01-17] MEDS: VANCOMYCIN HCL 1,000 MG in SODIUM CHLORIDE 0.9% 250 ML IV SCH ×3 (02:10→22:04)
[2019-01-17 06:34] LABS: Basophils # (auto) 0.07 K/uL (0-0.2); Basophils % (auto) 0.5 %; Eosinophils # (auto) 0.32 K/uL (0-0.5); Eosinophils % (auto) 2.4 %; Hematocrit (blood only) 34.6 % (42-52); Hemoglobin 11.4 g/dL (14.0-18.0); Immature Granulocytes % (auto) 0.7 %; Lymphocytes # (auto) 1.42 K/uL (1.2-3.4); Lymphocytes % (auto) 10.4 %; Mean Corpuscular Hemoglobin 32.3 pg (25-34); Mean Corpuscular Hgb Conc 32.9 g/dL (32-36); Mean Platelet Volume 8.9 fL (7.4-10.4); Monocytes # (auto) 1.21 K/uL (0.11-0.59); Monocytes % (auto) 8.9 %; Neutrophils # (auto) 10.48 K/uL (1.4-6.5); Neutrophils % (auto) 77.1 %; Platelet Count 475 K/uL (130-400); RDW Coefficient of Variation 14.1 % (11.5-14.5); RDW Standard Deviation 50.4 fL (36.4-46.3); Red Blood Count 3.53 M/uL (4.7-6.1)
[2019-01-17 06:55] LABS: Albumin Level 1.5 gm/dl (3.4-5.0); BUN Creatinine Ratio 27.6 (10-20); Calcium 8.5 mg/dl (8.5-10.1); Creatinine Clr Calc Pharmacy 129.2 ml/min; Est GFR (African American) 148.3; Potassium 4.6 mmol/L (3.5-5.1)
[2019-01-17 06:58] LABS: Albumin Globulin Ratio 0.4 (0.9-2); Bilirubin,Total 0.2 mg/dl (0.2-1); Globulin 4.1 gm/dl (2.5-4.0); Total Protein 5.6 gm/dl (6.4-8.2)
[2019-01-17] MEDS: LACTOBACILLUS ACIDOPHILUS (FLORANEX) TAB PO SCH ×4 (08:09→22:04)
[2019-01-17] MEDS: FOLIC ACID 1 MG TAB PO SCH (08:10)
[2019-01-17] MEDS: THIAMINE HCL 100 MG TAB PO SCH ×2 (08:10→22:03)
[2019-01-17] MEDS: MIDODRINE HCL 2.5 MG TAB PO SCH ×3 (08:11→17:10)
[2019-01-17] MEDS: ZINC SULFATE 220 MG CAPSULE PO SCH (08:11)
[2019-01-17] MEDS: TIOTROPIUM BROMIDE 5 PUFF/90 MCG INH INH SCH (08:12)
[2019-01-17] MEDS: DOCUSATE SODIUM/SENNA 50/8.6MG TAB PO SCH (08:13)
[2019-01-17] MEDS: MEGESTROL ACETATE 800 MG/20 ML UDP PO SCH (08:13)
[2019-01-17] MEDS: PROPRANOLOL HCL 10 MG TAB PO SCH ×2 (08:15→22:03)
--- NOTE | 2019-01-17 11:16 | Hospitalist Progress Note ---
Date of Service January 17, 2019 Assessment & Plan (1) Pneumonia involving right lung: Patient has radiographic as well as clinical evidence of pneumonia involving the right lung Status post bronchoscopy with normal fluoroscopy growth Patient is continued on antibiotics for a total of 14 days including vancomycin and Invanz * Today is day 10 * Appreciate input from infectious disease * On discharge plan is to change the patient to Levaquin and doxycycline if needed Patient continues to be afebrile. WBCs 13.6 Patient is now oxygenating well at rest with room air Encourage ambulation as tolerated but at the very least once daily in the hallways Disposition most likely to discharge to [facility] (2) Parapneumonic effusion: Previous thoracentesis 01/03/2019 with protein 1.6, LDH 187, glucose 132, amylase 27 Radiographically the pleural effusion has improved No clinical evidence of reaccumulation of fluid Continue antibiotic treatment as above (3) Severe protein-calorie malnutrition: Patient is cachectic with a BMI of 16 Discussed calorie intake with patient and his girlfriend today Focus on high-protein foods (4) Alcohol withdrawal: No further evidence of withdrawal at this time Patient admitted 12/29/2018 Follow alcohol withdrawal protocol Continue thiamine and folic acid supplementation (5) Cardiomyopathy: Echocardiogram this admission shows left ventricular systolic function is moderately reduced. There is mention of regional wall motion abnormalities. Right ventricle is moderately to severely dilated. Right atrium is moderately dilated. The patient has a EF of 30 to 35% as of 12/30/2018.There is moderate tricuspid regurgitation with right ventricular systolic pressures of 30 to 40 mmHg. No evidence of edema or right-sided failure at the time of my examination Patient currently doing well on room air Hemodynamically stable Electrolytes are balanced (6) Hypotension: A.m. cortisol 17.77 on 01/07/2019 Patient started on Midodrine 5mg PO TID Patient is also on propanolol 50 mg p.o. twice daily Last systolic pressure below 100 was 01/10/2019 at 1:25 PM Currently patient is running in the low 100s to mid teens (7) COPD (chronic obstructive pulmonary disease): Daily tobacco user Continue duo nebs as needed Continue Spiriva daily Oxygenation improved Continue antibiotics for pneumonia and parapneumonic effusion (8) Tobacco dependence: Current every day smoker Nicotine Transderm offered and refused Smoking cessation counseling (9) DVT prophylaxis: Continue Lovenox Please refer to Dr. Quinn's addendum for further recommendations. Supervising Physician Co-Signing Physician Notes I agree with above plan. Subjective Is a 58-year-old male seen at bedside. He presented with shortness of breath and found to have a suspected pneumonia. He underwent bronchoscopy which showed normal martina.Patient has been afebrile and white count is slowly improv ing and is currently 13.6. Patient is tolerating vancomycin and ertapenem. He is being followed by infectious disease. The plan is for 14 days of total antibiotics (today's day 10) Patient is minimally cooperative with exam. His girlfriend is in bed with him and it is difficult to do a full physical exam.Patient denies any chest pain or tightness. He reports he has been off supplemental O2 and has no significant shortness of breath. He has no reported pain. He has minimal sputum production in the sputum that he does have is yellow to bueno in color. He denies any hemoptysis.Denies any fever, chills, sweats, rigors.Overall he feels as though he is improving. He states he has not been out of bed but is willing to walk in the halls later today. In discussion with the nursing staff, They report that the patient has been refusing physical therapy and Occupational Therapy. He has assured me that he will cooperate this afternoon with increasing ambulation. The patient has no further acute complaints. Seen and examined at the bedside. Continues to improve slowly. Afebrile. REG and venous Doppler and both were negative for pathology.relation both lower extremities appropriate. Continue on vanco and ertapenem, empiric therapy for suspected pneumonia. Sputum culture on 01/09 growing normal martina, C. albicans and Aspergillus (rare x 1 and mod x 1) Bronch cultures growing normal martina only, fungal smear and culture negative. Patient denies hemoptysis fever chills chest pain shortness of breath abdominal pain frequency urgency melena. Cough improving. White blood cells now 17,000 -->16, 000-->14,000 trending down. Patient tolerates antibiotics well. Appreciate infectious diseases consult -no need to treat the Aspergillus Fumigatus at this time since does not appear invasive. Review of Systems Review of Systems: All systems reviewed & are unremarkable except as noted in HPI & below Respiratory: No acute shortness of breath. Patient does report sputum production with yellow to bueno sputum. No hemoptysis. No difficulty with sputum expression and no pain with cough. Physical Exam Physical Exam: GENERAL : No acute distress. Patient appears cachectic EYES: No icterus, gaze conjugate NOSE: No evidence of epistaxis. No nasal cannula in place MOUTH: No lesions or candidiasis. Poor oral hygiene NECK: Supple. No stridor or appreciation of bruits LUNGS: CTA B/L, no wheezes, rales or rhonchi HEART: Regular, rate controlled. No appreciation of ectopy ABDOMEN: Soft, NT, ND, BS Present EXTREMITIES: No LE edema, pedal pulses intact. NEURO: A&OX3. Able to move all extremities. Tongue midline. Pupils equal round and reactive to light. Results & Data Vital Signs (Past 12 Hours) Vital Signs Temp Pulse Resp BP Pulse Ox 01/17/19 06:57 36.8 C 84 18 106/71 92 Laboratory Results 01/17/19 06:11 01/17/19 06:11 Diagnostic Findings No new diagnostic imaging since 01/13/2019 PG Care Time/CCT Total # of Minutes Spent Total Time Spent with Patient: Total time spent is greater than 50% in coordination of care (as documented) at patient's floor/unit and/or counseling patient: 30 (1) Alcohol withdrawal Complication of substance-induced condition: uncomplicated Qualified Code(s): F10.230 - Alcohol dependence with withdrawal, uncomplicated
[2019-01-17] MEDS ORDERED: VANCOMYCIN TROUGH ONE (11:30)
[2019-01-17] MEDS: ERTAPENEM SODIUM 1,000 MG in SODIUM CHLORIDE 0.9% 50 ML IV SCH (12:06)
[2019-01-17] MEDS: ONDANSETRON INJ 2 MG/ML 2 ML VIAL IV PRN ×2 (13:46→21:25)
--- NOTE | 2019-01-17 14:47 | Pharmacy Report ---
Pharmacy Abx Dose Short Note - Date of Service January 17, 2019 - Assessment & Plan Assessment 58 year old M receiving vancomycin and Invanz for treatment of pneumonia Day # 03/05 of antimicrobial therapy. Plan Vancomycin * Trough level of 15.2 mcg/mL is therapeutic * Continue dose of 1000 mg IV every 10 hours * Goal trough level for pneumonia : 15 mcg/mL * No additional troughs ordered as patient only has 4 more days of therapy. Pharmacy will continue to follow and will adjust dose/frequency as necessary. Thank you.
[2019-01-17] MEDS: MULTIVITAMIN TAB PO SCH (22:03)
[2019-01-18 07:27] LABS: Hematocrit (blood only) 33.3 % (42-52); Hemoglobin 11.2 g/dL (14.0-18.0); Mean Corpuscular Hemoglobin 32.8 pg (25-34); Mean Corpuscular Hgb Conc 33.6 g/dL (32-36); Mean Corpuscular Volume 97.7 fL (80-100); Mean Platelet Volume 8.7 fL (7.4-10.4); Platelet Count 545 K/uL (130-400); RDW Coefficient of Variation 14.2 % (11.5-14.5); RDW Standard Deviation 50.9 fL (36.4-46.3); Red Blood Count 3.41 M/uL (4.7-6.1); White Blood Count 22.05 K/uL (4.8-10.8)
[2019-01-18 07:40] LABS: Albumin Level 1.7 gm/dl (3.4-5.0); BUN Creatinine Ratio 29.8 (10-20); Calcium 8.5 mg/dl (8.5-10.1); Creatinine Clr Calc Pharmacy 132.3 ml/min; Est GFR (African American) 149.8; Est GFR (Non-African American) 129.2; Potassium 4.3 mmol/L (3.5-5.1)
[2019-01-18 07:43] LABS: Albumin Globulin Ratio 0.4 (0.9-2); Basophils # (auto) 0.09 K/uL (0-0.2); Basophils % (auto) 0.4 %; Bilirubin,Total 0.3 mg/dl (0.2-1); Eosinophils % (auto) 0.9 %; Globulin 4.4 gm/dl (2.5-4.0); Immature Granulocytes # (auto) 0.13 K/uL (0.00-0.02); Immature Granulocytes % (auto) 0.6 %; Lymphocytes # (auto) 1.89 K/uL (1.2-3.4); Lymphocytes % (auto) 8.6 %; Monocytes # (auto) 2.95 K/uL (0.11-0.59); Monocytes % (auto) 13.4 %; Neutrophils # (auto) 16.79 K/uL (1.4-6.5); Neutrophils % (auto) 76.1 %; Total Protein 6.1 gm/dl (6.4-8.2)
[2019-01-18] MEDS: MIDODRINE HCL 2.5 MG TAB PO SCH ×2 (08:57→12:30)
[2019-01-18] MEDS: DOCUSATE SODIUM/SENNA 50/8.6MG TAB PO SCH (08:57)
[2019-01-18] MEDS: ZINC SULFATE 220 MG CAPSULE PO SCH (08:57)
[2019-01-18] MEDS: LACTOBACILLUS ACIDOPHILUS (FLORANEX) TAB PO SCH ×2 (08:57→12:30)
[2019-01-18] MEDS: PROPRANOLOL HCL 10 MG TAB PO SCH (08:57)
[2019-01-18] MEDS: TIOTROPIUM BROMIDE 5 PUFF/90 MCG INH INH SCH (08:58)
[2019-01-18] MEDS: THIAMINE HCL 100 MG TAB PO SCH (08:58)
[2019-01-18] MEDS: FOLIC ACID 1 MG TAB PO SCH (08:58)
[2019-01-18] MEDS: MEGESTROL ACETATE 800 MG/20 ML UDP PO SCH (08:59)
[2019-01-18] MEDS: VANCOMYCIN HCL 1,000 MG in SODIUM CHLORIDE 0.9% 250 ML IV SCH (09:24)
[2019-01-18 11:39] LABS: Hematocrit (blood only) 34.7 % (42-52); Hemoglobin 11.4 g/dL (14.0-18.0); Mean Corpuscular Volume 97.5 fL (80-100); Mean Platelet Volume 8.9 fL (7.4-10.4); Platelet Count 541 K/uL (130-400); RDW Coefficient of Variation 14.1 % (11.5-14.5); RDW Standard Deviation 50.6 fL (36.4-46.3); Red Blood Count 3.56 M/uL (4.7-6.1); White Blood Count 17.05 K/uL (4.8-10.8)
[2019-01-18 11:45] LABS: Mean Corpuscular Hgb Conc 32.9 g/dL (32-36)
[2019-01-18] MEDS: ERTAPENEM SODIUM 1,000 MG in SODIUM CHLORIDE 0.9% 50 ML IV SCH (12:29)
--- NOTE | 2019-01-18 15:58 | Discharge Summary ---
Date of Service January 18, 2019 Admission HPI Per Admitting Provider The patient is a 58-year-old male with a past medical history including COPD, tobacco abuse, alcohol abuse, GI bleed and previous history of pneumonia, who presents to the emergency department with acute onset of shortness of breath similar to his previous episode of pneumonia. In the emergency department, he was found to be in atrial fibrillation with RVR, with borderline blood pressure of 87/70, and a right upper lobe pneumonia on chest x-ray. Admission Exam (Per Admitting) Constitutional The patient is awake, alert and oriented 3, appears malnourished, normocephalic and atraumatic, lying in bed and in no acute distress. HEENT--PERRL, EOMI, mucous membranes and oropharynx dry. Neck--supple. No JVD. No bruits. Thyroid normal, trachea midline, no adenopathy. Heart--normal S1 and S2. No murmurs, rubs or gallops. Lungs--coarse breath sounds right side, normal on left Abdomen--normal bowel sounds and soft. Nontender. Nondistended. Extremities--no cyanosis or clubbing. No edema. There are good distal pulses b/l. Dermatologic--normal skin turgor, normal color, no abnormal lymph nodes, no rash. Neurologic--cranial nerves II through XII grossly intact. Rheumatologic--normal range of motion. Psychiatric--normal affect. Discharge Data Consultations 12/29/18 20:54 ED Decision to Admit Stat 12/29/18 22:55 Consult Cardiology Routine Consult Case Management - Discharge Planning Routine 01/07/19 15:47 Consult Infectious Diseases Routine 01/07/19 17:26 Consult Thoracic Surgery Routine Procedures Performed Operation Date: 01/10/19 10:30 Actual Procedures p Bronchoscopy Radiology(Bilateral) - Lawrence Torres MD Cultures were negative for growth Bronc wash was positive for Aspergillus fumigatus as well as Zayra albicans * No antifungals were started as this was considered to be colonized per infectious disease Sample was negative for malignancy Bronc sample AFB smear was negative Hospital Course (1) Pneumonia involving right lung: Patient has radiographic as well as clinical evidence of pneumonia involving the right lung Status post bronchoscopy with normal fluoroscopy growth Patient completed 11 days of IV antibiotics * No indication for further antibiotics at this time * Procalcitonin on day of discharge was negative at 0.30 * All blood cultures and bronchoscopy cultures were negative for growth Patient is now oxygenating well at rest with room air Encourage ambulation as tolerated but at the very least once daily in the hallways Disposition:discharge to [facility] Patient should have repeat CT scan of the chest without contrast in 3 to 4 weeks to follow for resolution (2) Parapneumonic effusion: Previous thoracentesis 01/03/2019 with protein 1.6, LDH 187, glucose 132, amylase 27 Radiographically the pleural effusion has improved No clinical evidence of reaccumulation of fluid Bronchoscopy with no growth Completed 11 days of IV antibiotics No need for further antibiotics at this time White count stable but still elevated Outpatient follow-up with imaging to follow for resolution (3) Severe protein-calorie malnutrition: Patient is cachectic with a BMI of 16 Discussed calorie intake with patient and his girlfriend Focus on high-protein foods -avoid fast food and processed foods Patient has used boost protein supplement and likes the flavor Will continue boost 3-4 times daily as tolerated (4) Alcohol withdrawal: No further evidence of withdrawal at this time Patient admitted 12/29/2018 Discussed need for complete abstinence of alcohol and tobacco products Girlfriend will continue to support this effort (5) Cardiomyopathy: Echocardiogram this admission shows left ventricular systolic function is moderately reduced. There is mention of regional wall motion abnormalities. Right ventricle is moderately to severely dilated. Right atrium is moderately dilated. The patient has a EF of 30 to 35% as of 12/30/2018.There is moderate tricuspid regurgitation with right ventricular systolic pressures of 30 to 40 mmHg. No evidence of edema or right-sided failure at the time of my examination Patient currently doing well on room air Hemodynamically stable Electrolytes are balanced (6) Hypotension: A.m. cortisol 17.77 on 01/07/2019 Patient started on Midodrine 5mg PO TID -discontinue on discharge Patient is also on propanolol 50 mg p.o. twice daily -continue as tolerated Patient is asymptomatic in the low 100s to mid teens (7) COPD (chronic obstructive pulmonary disease): Daily tobacco user Continue duo nebs as needed Continue Spiriva daily - Rx provided Oxygenating well on room air Completed 11 days of antibiotics for pneumonia and parapneumonic effusion Outpatient follow-up with PCP (8) Tobacco dependence: Current every day smoker prior to admission Smoking cessation counseling daily while in inpatient Again encouraged complete abstinence from tobacco products (9) DVT prophylaxis: Lovenox While inpatient Continue ambulation as tolerated Patient seen and examined on day of discharge by Dr. Quinn
--- NOTE | 2019-01-19 09:13 | Discharge Summary ---
Date of Service January 18, 2019 Admission HPI Per Admitting Provider The patient is a 58-year-old male with a past medical history including COPD, tobacco abuse, alcohol abuse, GI bleed and previous history of pneumonia, who presents to the emergency department with acute onset of shortness of breath similar to his previous episode of pneumonia. In the emergency department, he was found to be in atrial fibrillation with RVR, with borderline blood pressure of 87/70, and a right upper lobe pneumonia on chest x-ray. Admission Exam Per Admitting Provider The patient is awake, alert and oriented 3, appears malnourished, normocephalic and atraumatic, lying in bed and in no acute distress. HEENT--PERRL, EOMI, mucous membranes and oropharynx dry. Neck--supple. No JVD. No bruits. Thyroid normal, trachea midline, no adenopathy. Heart--normal S1 and S2. No murmurs, rubs or gallops. Lungs--coarse breath sounds right side, normal on left Abdomen--normal bowel sounds and soft. Nontender. Nondistended. Extremities--no cyanosis or clubbing. No edema. There are good distal pulses b/l. Dermatologic--normal skin turgor, normal color, no abnormal lymph nodes, no rash. Neurologic--cranial nerves II through XII grossly intact. Rheumatologic--normal range of motion. Psychiatric--normal affect. Principal Diagnosis Pneumonia with paraneumonic pleural effusion Discharge Exam Constitutional WD/WN, vitals as above + thin and + malnourished Afebrile Eyes PERRL, conjunctivae normal, anicteric sclerae Gaze conjugate ENMT Mouth: + poor dentition Neck trachea midline Respiratory normal respiratory effort, lungs clear to auscultation Cardiovascular Rate/Rhythm: regular rate and regular rhythm Chest (Breasts) Additional Comments: No paradoxical chest wall movement Gastrointestinal (Abdomen) Percussion/Palpation: abdomen soft; abdomen nontender and no guarding Musculoskeletal Head/Neck/Chest: neck supple Extremities: extremities normal to inspection Skin normal turgor Neurologic PERRL, EOMI, accommodation nl, no face palsy, no dysarthria Psychiatric Orientation: alert and oriented x 3 Discharge Data Allergies Allergy/AdvReac Type Severity Reaction Status Date / Time erythromycin base Allergy Unknown Unknown Verified 01/27/19 22:20 Penicillins Allergy Unknown Unknown Verified 01/27/19 22:20 NITRATES IN PROCESSED MEATS Allergy Severe Difficulty Uncoded 01/28/19 03:14 Breathing Consultations 12/29/18 20:54 ED Decision to Admit Stat 12/29/18 22:55 Consult Cardiology Routine Consult Case Management - Discharge Planning Routine 01/07/19 15:47 Consult Infectious Diseases Routine 01/07/19 17:26 Consult Thoracic Surgery Routine Procedures Performed Operation Date: 01/10/19 10:30 Actual Procedures p Bronchoscopy Radiology(Bilateral) - Lawrence Torres MD Cultures were negative for growth Bronc wash was positive for Aspergillus fumigatus as well as Zayra albicans No antifungals were started as this was considered to be colonized per infectious disease Sample was negative for malignancy Bronc sample AFB smear was negative Ordered Studies 01/03/19 15:21 CT chest wo con Urgent 01/03/19 19:15 US point of care ultrasound Routine 01/05/19 08:10 US point of care ultrasound Routine 01/13/19 11:50 US ankle/brachial index comp Stat 01/13/19 11:56 US venous doppler LE Stat Hospital Course (1) Pneumonia involving right lung: Patient has radiographic as well as clinical evidence of pneumonia involving the right lung Status post bronchoscopy with normal fluoroscopy growth Patient completed 11 days of IV antibiotics * No indication for further antibiotics at this time * Procalcitonin on day of discharge was negative at 0.30 * All blood cultures and bronchoscopy cultures were negative for growth Patient is now oxygenating well at rest with room air Encourage ambulation as tolerated but at the very least once daily in the hallways Disposition:discharge to [facility] Patient should have repeat CT scan of the chest without contrast in 3 to 4 weeks to follow for resolution (2) Parapneumonic effusion: Previous thoracentesis 01/03/2019 with protein 1.6, LDH 187, glucose 132, amylase 27 Radiographically the pleural effusion has improved No clinical evidence of reaccumulation of fluid Bronchoscopy with no growth Completed 11 days of IV antibiotics No need for further antibiotics at this time White count stable but still elevated Outpatient follow-up with imaging to follow for resolution (3) Severe protein-calorie malnutrition: Patient is cachectic with a BMI of 16 Discussed calorie intake with patient and his girlfriend Focus on high-protein foods -avoid fast food and processed foods Patient has used boost protein supplement and likes the flavor Will continue boost 3-4 times daily as tolerated (4) Alcohol withdrawal: No further evidence of withdrawal at this time Patient admitted 12/29/2018 Discussed need for complete abstinence of alcohol and tobacco products Girlfriend will continue to support this effort (5) Elevated troponin: In the setting of hypoxemic respiratory failure secndary to RUL pneumonia Max Troponin I was 0.[address] changes on EKG Echocardiogram 12/30/18 with LVEF 30-35% Left ventricular systolic function was moderately reduced The entire apex was severely hypokinetic with some segments appearing akinetic The right ventricle was moderate to severely dilated There was no severe aortic stenosis Right ventricular systolic pressure was elevated at 30-40 mmHg No cardiac catheterization was performed this admission (6) Cardiomyopathy: Echocardiogram this admission shows left ventricular systolic function is moderately reduced. There is mention of regional wall motion abnormalities. Right ventricle is moderately to severely dilated. Right atrium is moderately dilated. The patient has a EF of 30 to 35% as of 12/30/2018.There is moderate tricuspid regurgitation with right ventricular systolic pressures of 30 to 40 mmHg. No evidence of edema or right-sided failure at the time of my examination Patient currently doing well on room air Hemodynamically stable Electrolytes are balanced (7) Hypotension: A.m. cortisol 17.77 on 01/07/2019 Patient started on Midodrine 5mg PO TID -discontinue on discharge Patient is also on propanolol 50 mg p.o. twice daily -continue as tolerated Patient is asymptomatic in the low 100s to mid teens (8) COPD (chronic obstructive pulmonary disease): Daily tobacco user Continue duo nebs as needed Continue Spiriva daily - Rx provided Oxygenating well on room air Completed 11 days of antibiotics for pneumonia and parapneumonic effusion Outpatient follow-up with PCP (9) Tobacco dependence: Current every day smoker prior to admission Smoking cessation counseling daily while in inpatient Again encouraged complete abstinence from tobacco products (10) DVT prophylaxis: Lovenox while inpatient Continue ambulation as tolerated Patient seen and examined on day of discharge by Dr. Quinn Total Time Total Time Spent Total Time Spent (In Minutes): 45 Discharge Plan Discharge Items Patient Disposition: Transfer Assisted Fac Reason For Visit: ATRIAL FIB WITH RVR,RUL PNEUMONIA,ALCOHOL ABUSE Discharge Diagnosis: Right upper lobe pneumonia Condition: Good Discharge Goals: Improve function, Increase independence and Improve nutritional status Specific Goals: Complete alcohol and tobacco abstinence Activity: As commented below Activity Comment: Increase activity as tolerated. Lifting: Gradually increase as tolerated Lifting Comment: No physical limitations. Bathing: No limitations Sexual Activity: When tolerated Exercise/Sports: Gradually increase as tolerated Exercise Comment: Ambulate per rehab instructions at [facility] Driving/Machine Use Comment: Due to profound weakness, patient should not drive or operate equipment Weightbearing: Full weightbearing Non-emergency contact: Primary Care Provider Call non-emergency contact if: you have any medication questions, you have a fever and your temperature is above 101 Follow-up/Referrals: Abena Gill MD [Primary Care Provider] - Diet: Heart Healthy and See below Diet Comment: Protein supplements 3 times daily. Patient likes Boost. Addtl Provider Instructions: Complete alcohol abstinence Complete tobacco abstinence Focus on high-protein foods Exercise as tolerated daily Prescriptions: New multivitamin [Daily-Deanne] Tablet 1 tab PO QPM Qty: 30 RF: 0 propranolol 10 mg Tablet 15 mg PO BID Qty: 45 RF: 1 Spiriva with HandiHaler 18 mcg Capsule, W/Inhalation Device 1 puff inhalation QAM Qty: 30 RF: 1 Continued albuterol sulfate [Ventolin HFA] 90 mcg/actuation HFA aerosol inhaler 1 - 2 puff inhalation .Q4-6HRS PRN (Reason: Shortness Of Breath Or Wheezing) RF: 0 Symbicort 160-4.5 mcg/actuation HFA aerosol inhaler 2 puff inhalation BID RF: 0 cetirizine 10 mg tablet 10 mg PO DAILY PRN (Reason: Allergy Symptoms) RF: 0 Stand-Alone Forms: Replaced By [facility] Discharge Orders: Discharge Order (Routine); Ordered 01/18/19 Ordered By: Dru Zhang Skilled Items Patient informed of condition?: Yes DNR: No Discharge Level of Care: Skilled Communicable Disease: No Discharge Prognosis: Improving Admission Data Admit Date/Time: 12/29/18 22:14 Attending Provider: Rajeev Quinn Admit Provider: Kwabena Lara Primary Care Provider: Abena Gill Other Providers: Mychal Espinoza ; Heydi Amos ; Roderick Nelson ; Lawrence Torres Service: Medical Other Interventions: Discharge Summary Assessment (RN) Last Done: 01/18/19 13:25 Pending Studies at Discharge: No DC Date/Time DO NOT enter until pt leaves facility: 01/18/19 15:31 Supervising Physician Co-Signing Physician Notes During my face to face encouter with patient, I performed a history and examination. I discussed discharge plan with patient and APC. I reviewed above note and agree with it. Patient should have repeat ct scan imaging to review parapneumonic process in 3 weeks.
--- NOTE | 2019-01-28 21:35 | Discharge Summary ---
Date of Service January 18, 2019 Admission HPI Per Admitting Provider Document created for billing as other discharge summary did not include billing window. Principal Diagnosis Pneumonia with paraneumonic pleural effusion Discharge Data Allergies Allergy/AdvReac Type Severity Reaction Status Date / Time erythromycin base Allergy Unknown Unknown Verified 01/27/19 22:20 Penicillins Allergy Unknown Unknown Verified 01/27/19 22:20 NITRATES IN PROCESSED MEATS Allergy Severe Difficulty Uncoded 01/28/19 03:14 Breathing Consultations 12/29/18 20:54 ED Decision to Admit Stat 12/29/18 22:55 Consult Cardiology Routine Consult Case Management - Discharge Planning Routine 01/07/19 15:47 Consult Infectious Diseases Routine 01/07/19 17:26 Consult Thoracic Surgery Routine Procedures Performed Operation Date: 01/10/19 10:30 Actual Procedures p Bronchoscopy Radiology(Bilateral) - Lawrence Torres MD Ordered Studies 01/03/19 15:21 CT chest wo con Urgent 01/03/19 19:15 US point of care ultrasound Routine 01/05/19 08:10 US point of care ultrasound Routine 01/13/19 11:50 US ankle/brachial index comp Stat 01/13/19 11:56 US venous doppler LE BI Stat Total Time Total Time Spent Total Time Spent (In Minutes): 40 Discharge Plan Discharge Items Patient Disposition: Transfer Residential Fac Reason For Visit: ATRIAL FIB WITH RVR,RUL PNEUMONIA,ALCOHOL ABUSE Discharge Diagnosis: Right upper lobe pneumonia Condition: Good Discharge Goals: Improve function, Increase independence and Improve nutritional status Specific Goals: Complete alcohol and tobacco abstinence Activity: As commented below Activity Comment: Increase activity as tolerated. Lifting: Gradually increase as tolerated Lifting Comment: No physical limitations. Bathing: No limitations Sexual Activity: When tolerated Exercise/Sports: Gradually increase as tolerated Exercise Comment: Ambulate per rehab instructions at [facility] Driving/Machine Use Comment: Due to profound weakness, patient should not drive or operate equipment Weightbearing: Full weightbearing Non-emergency contact: Primary Care Provider Call non-emergency contact if: you have any medication questions, you have a fever and your temperature is above 101 Follow-up/Referrals: Abena Gill MD [Primary Care Provider] - Diet: Heart Healthy and See below Diet Comment: Protein supplements 3 times daily. Patient likes Boost. Addtl Provider Instructions: Complete alcohol abstinence Complete tobacco abstinence Focus on high-protein foods Exercise as tolerated daily Prescriptions: New multivitamin [Daily-Deanne] Tablet 1 tab PO QPM Qty: 30 RF: 0 propranolol 10 mg Tablet 15 mg PO BID Qty: 45 RF: 1 Spiriva with HandiHaler 18 mcg Capsule, W/Inhalation Device 1 puff inhalation QAM Qty: 30 RF: 1 Continued albuterol sulfate [Ventolin HFA] 90 mcg/actuation HFA aerosol inhaler 1 - 2 puff inhalation .Q4-6HRS PRN (Reason: Shortness Of Breath Or Wheezing) RF: 0 Symbicort 160-4.5 mcg/actuation HFA aerosol inhaler 2 puff inhalation BID RF: 0 cetirizine 10 mg tablet 10 mg PO DAILY PRN (Reason: Allergy Symptoms) RF: 0 Stand-Alone Forms: [facility] Discharge Orders: Discharge Order (Routine); Ordered 01/18/19 Ordered By: Dru Zhang Skilled Items Patient informed of condition?: Yes DNR: No Discharge Level of Care: Skilled Communicable Disease: No Discharge Prognosis: Improving Admission Data Admit Date/Time: 12/29/18 22:14 Attending Provider: Rajeev Quinn Admit Provider: Kwabena Lara Primary Care Provider: Abena Gill Other Providers: Mychal Espinoza ; Heydi Amos ; Roderick Nelson ; Lawrence Torres Service: Medical Other Interventions: Discharge Summary Assessment (RN) Last Done: 01/18/19 13:25 Pending Studies at Discharge: No DC Date/Time DO NOT enter until pt leaves facility: 01/18/19 15:31
== END 2019-01-18 15:31 | DRG 871 ==
LOC: ED 19:31 → 2E 22:14 → SUATTDRO 22:14 → 2E 22:39 → 1E 12-31 10:51 → 2N 01-02 17:11 → 1E 01-03 18:50 → 4W 01-06 10:37
DX: I48.91 Unspecified atrial fibrillation; J44.1 Chronic obstructive pulmonary disease with (acute) exacerbation; R64 Cachexia; Z87.01 Personal history of pneumonia (recurrent); Z68.1 Body mass index [BMI] 19.9 or less, adult; I42.9 Cardiomyopathy, unspecified; Z79.899 Other long term (current) drug therapy; J44.0 Chronic obstructive pulmonary disease with (acute) lower respiratory infection; A41.9 Sepsis, unspecified organism; E88.09 Other disorders of plasma-protein metabolism, not elsewhere classified; R65.20 Severe sepsis without septic shock; E87.1 Hypo-osmolality and hyponatremia; M62.84 Sarcopenia; J18.1 Lobar pneumonia, unspecified organism; E43 Unspecified severe protein-calorie malnutrition; I73.9 Peripheral vascular disease, unspecified; I24.8 Other forms of acute ischemic heart disease; J96.01 Acute respiratory failure with hypoxia; F10.239 Alcohol dependence with withdrawal, unspecified; F17.210 Nicotine dependence, cigarettes, uncomplicated; J86.9 Pyothorax without fistula

== ENCOUNTER 2019-01-31 22:56 | Inpatient (IN) ==
[2019-01-31] MEDS ORDERED: SODIUM CHLORIDE 0.9% 1000ML 1,000 ML IV SCH (23:45)
[2019-02-01 00:38] LABS: Basophils # (auto) 0.13 K/uL (0-0.2); Basophils % (auto) 0.9 %; Eosinophils # (auto) 0.48 K/uL (0-0.5); Eosinophils % (auto) 3.1 %; Hematocrit (blood only) 30.3 % (42-52); Hemoglobin 10.1 g/dL (14.0-18.0); Immature Granulocytes # (auto) 0.34 K/uL (0.00-0.02); Immature Granulocytes % (auto) 2.2 %; Lymphocytes # (auto) 2.78 K/uL (1.2-3.4); Lymphocytes % (auto) 18.2 %; Mean Corpuscular Hemoglobin 31.6 pg (25-34); Mean Corpuscular Hgb Conc 33.3 g/dL (32-36); Mean Corpuscular Volume 94.7 fL (80-100); Mean Platelet Volume 8.7 fL (7.4-10.4); Monocytes # (auto) 1.67 K/uL (0.11-0.59); Monocytes % (auto) 10.9 %; Neutrophils # (auto) 9.88 K/uL (1.4-6.5); Neutrophils % (auto) 64.7 %; Platelet Count 449 K/uL (130-400); RDW Coefficient of Variation 14.9 % (11.5-14.5); RDW Standard Deviation 51.4 fL (36.4-46.3); White Blood Count 15.28 K/uL (4.8-10.8)
[2019-02-01 00:56] LABS: Albumin Level 2.2 gm/dl (3.4-5.0); BUN Creatinine Ratio 24.8 (10-20); Creatinine Clr Calc Pharmacy 116.7 ml/min; Est GFR (African American) 140.6; Est GFR (Non-African American) 121.3
[2019-02-01 01:06] LABS: Albumin Globulin Ratio 0.5 (0.9-2); Bilirubin,Total 0.1 mg/dl (0.2-1); Globulin 4.3 gm/dl (2.5-4.0); Thyroid Stimulating Hormone 1.57 uIu/ml (0.300-4.500); Total Protein 6.5 gm/dl (6.4-8.2); Troponin I 0.017 ng/ml (0-0.045)
[2019-02-01] MEDS ORDERED: VANCOMYCIN CONSULT ACTIVE PRN (01:30)
[2019-02-01] MEDS ORDERED: AZTREONAM 1,000 MG in DEXTROSE 5% 100 ML IV STA (01:30)
[2019-02-01] MEDS ORDERED: VANCOMYCIN HCL 1,250 MG in SODIUM CHLORIDE 0.9% 500 ML IV ONE (01:30)
[2019-02-01] MEDS ORDERED: LEVOFLOXACIN/D5W 750 MG/150 ML BAG IV SCH (01:30)
[2019-02-01] MEDS ORDERED: ACETAMINOPHEN 325 MG TAB PO PRN (04:05)
[2019-02-01] MEDS ORDERED: ALBUTEROL 0.083% NEBU SOLN 3 ML VIAL NEB PRN (04:05)
[2019-02-01] MEDS ORDERED: MoRPHine SULFATE 2 MG/ML CARP IV PRN (04:05)
[2019-02-01] MEDS ORDERED: MAGNESIUM HYDROXIDE SUSP 30 ML UDC PO PRN (04:05)
[2019-02-01] MEDS ORDERED: bisacodyL 10 MG SUPP PR PRN (04:05)
[2019-02-01] MEDS ORDERED: MoRPHine SULFATE 4 MG/ML 1 ML CARP\\VIAL IV PRN (04:05)
--- NOTE | 2019-02-01 04:08 | History & Physical Report ---
Date of Service February 01, 2019 Assessment & Plan (1) Empyema, right: Admit to tele Vanco, Levofloxacin, and Aztreonam given in the ED I held further antibiotic awaiting possible fluid culture and ID consult Consult thoracic surgery. Follow daily labs. Present on Admission?: Yes (2) Weakness: Secondary to #1 (3) COPD (chronic obstructive pulmonary disease): Continue home inhalers PRN albuterol nebs. History of Present Illness 58 y/o male presented to the emergency department with ongoing weakness which became worse. He was unable to self remove from toilet due to weakness. With COPD he has chronic SOB which there has been no change. He had been in rehabilitation, but was discharged on 01/31/19. Patient denies chest pain, nausea/vomiting, F/C or urinary symptoms. He had a CT chest performed on 01/31/19 showing a R empyema. The patient received dose of Vanco, Levaquin, and Aztreonam in the ED. Primary Care Provider: Ronni Melendez Allergies Allergy/AdvReac Type Severity Reaction Status Date / Time erythromycin base Allergy Unknown Unknown Verified 01/31/19 23:28 Penicillins Allergy Unknown Unknown Verified 01/31/19 23:28 NITRATES IN PROCESSED MEATS Allergy Severe Difficulty Uncoded 01/31/19 23:28 Breathing Home Medications Home Medications Medication Instructions Recorded Confirmed Type Symbicort 2 puff INHALATION BID 12/29/18 01/31/19 History albuterol sulfate [Ventolin HFA] 1 - 2 puff INHALATION .Q4-6HRS PRN 12/29/18 01/31/19 History cetirizine 10 mg PO DAILY PRN 12/29/18 01/31/19 History multivitamin [Daily-Deanne] 1 tab PO QPM #30 tab 01/18/19 01/31/19 Rx propranolol 15 mg PO BID #45 tab 01/18/19 01/31/19 Rx acetaminophen 650 mg PO Q6H PRN 01/31/19 01/31/19 History bisacodyl [Dulcolax (bisacodyl)] 10 mg KS DAILY PRN 01/31/19 01/31/19 History fluticasone furoate-vilanterol 1 inh INHALATION DAILY 01/31/19 01/31/19 History [Breo Ellipta] magnesium hydroxide [Milk of 30 ml PO DAILY PRN 01/31/19 01/31/19 History Magnesia] sodium phosphates [Fleet Enema] 118 ml KS Q24H PRN 01/31/19 01/31/19 History tiotropium bromide [Spiriva with 1 cap INHALATION DAILY 01/31/19 01/31/19 History HandiHaler] umeclidinium [Incruse Ellipta] 1 inh INHALATION DAILY 01/31/19 01/31/19 History Past Med/Surg History Medical History Elevated troponin GI bleed (Resolved) COPD (chronic obstructive pulmonary disease) (Chronic) Abdominal mass removed at [facility] - he cannot recall details; he was in 3rd grade Avascular necrosis of hip right Surgical History Hx of appendectomy Family History Father Hairy cell leukemia Mother Multiple myeloma Social History Preferred Language: Grenadian 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 Required: No Beliefs That Will Affect Care: None marital status: Single marital status details: no children Current Living Situation: Spouse Current Living Situation Comment: lives in [place] by himself current occupational status: disabled other: 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 Feels Safe at Home: Yes Safety Concerns: Feels Safe At This Time Smoking Status: Former smoker Tobacco Type: cigarettes ; Age Started Using Tobacco: 16 ; packs per day: 1 ; Cigarettes Per Day: 20 ; Hx Alcohol Use: Yes Alcohol type: beer Alcohol Intake Frequency: Daily Alcohol Intake Frequency Comment: 4-6 beers/day Hx Substance Use: No Review of Systems Review of Systems: NEEDS EDITING Constitutional- no fever; no weight loss Eyes- no acute visual changes ENT- no sinus drainage; no pharyngitis Pulmonary- no cough, no wheezing, no change in shortness of breath Cardiac- no chest pain, no palpitations, no orthopnea, no dependent edema GI- no nausea, no vomiting, no diarrhea, no melena, no hematochezia - no dysuria, no hematuria Musculoskeletal- no arthralgias, no myalgias Derm- no rashes, no new skin lesions, no changing skin lesions Hematologic- no unusual bruising, no unusual bleeding Lymphatics- no adenopathy Endocrine- no polyuria or polydipsia; no heat or cold intolerance Neuro- no headaches, no focal neurologic symptoms Psych- no anxiety, no depression Physical Exam Physical Exam: NEEDS EDITING General- adult Head- atraumatic Eyes- PERRL, EOMI, anicteric ENT- oropharynx clear Neck- supple, no JVD, no adenopathy, no thyromegaly; carotids +2/2, no bruits appreciated Lungs- decreased breath sounds b/l R>L, with expiratory wheezing. Heart- regular rhythm; no murmur, no gallop, no rub appreciated Abdomen- normal bowel sounds, soft, nontender, no hepatosplenomegaly Extremities- no pretibial edema, no calf tenderness; peripheral pulses intact Neuro- alert, oriented x 3; PERRL, EOMI; Non-focal. Skin- warm & dry Results & Data Vital Signs (Past 12 Hours) Vital Signs Temp Pulse Pulse Pulse Resp BP BP 02/01/19 03:15 36.7 C 87 27 H 123/89 02/01/19 02:59 86 19 101/77 02/01/19 02:32 86 22 02/01/19 02:31 86 20 101/77 02/01/19 02:29 89 25 H 114/70 02/01/19 02:00 83 21 106/72 02/01/19 01:30 82 21 110/72 02/01/19 01:00 81 22 114/74 02/01/19 00:41 81 80 25 H 114/74 114/74 02/01/19 00:30 83 23 02/01/19 00:00 95 H 28 H 01/31/19 23:30 87 23 01/31/19 23:05 36.5 C 88 23 126/79 01/31/19 22:59 91 H 23 126/79 Pulse Ox 02/01/19 03:15 98 02/01/19 02:59 98 02/01/19 02:32 97 02/01/19 02:31 98 02/01/19 02:29 99 02/01/19 02:00 97 02/01/19 01:30 95 02/01/19 01:00 96 02/01/19 00:41 96 02/01/19 00:30 96 02/01/19 00:00 98 01/31/19 23:30 98 01/31/19 23:05 97 01/31/19 22:59 97 Laboratory Results Laboratory Results WBC 15.28 K/uL (4.8-10.8) H 02/01/19 00:26 RBC 3.20 M/uL (4.7-6.1) L 02/01/19 00:26 Hgb 10.1 g/dL (14.0-18.0) L 02/01/19 00:26 Hct 30.3 % (42-52) L 02/01/19 00:26 MCV 94.7 fL (80-100) 02/01/19 00:26 MCH 31.6 pg (25-34) 02/01/19 00:26 MCHC 33.3 g/dL (32-36) 02/01/19 00:26 RDW Std Deviation 51.4 fL (36.4-46.3) H 02/01/19 00:26 RDW Coeff of Jm 14.9 % (11.5-14.5) H 02/01/19 00:26 Plt Count 449 K/uL (130-400) H 02/01/19 00:26 MPV 8.7 fL (7.4-10.4) 02/01/19 00:26 Immature Gran % (Auto) 2.2 % 02/01/19 00:26 Neut % (Auto) 64.7 % 02/01/19 00:26 Lymph % (Auto) 18.2 % 02/01/19 00:26 Crane % (Auto) 10.9 % 02/01/19 00:26 Eos % (Auto) 3.1 % 02/01/19 00:26 Baso % (Auto) 0.9 % 02/01/19 00:26 Immature Gran # (Auto) 0.34 K/uL (0.00-0.02) H 02/01/19 00:26 Neut # (Auto) 9.88 K/uL (1.4-6.5) H 02/01/19 00:26 Lymph # (Auto) 2.78 K/uL (1.2-3.4) 02/01/19 00:26 Crane # (Auto) 1.67 K/uL (0.11-0.59) H 02/01/19 00:26 Eos # (Auto) 0.48 K/uL (0-0.5) 02/01/19 00:26 Baso # (Auto) 0.13 K/uL (0-0.2) 02/01/19 00:26 Sodium 138 mmol/L (136-145) 02/01/19: Potassium 4.0 mmol/L (3.5-5.1) 02/01/19: Chloride 106 mmol/L (98-107) 02/01/19: Carbon Dioxide 25 mmol/L (21-32) 02/01/19: Anion Gap 7.0 (3-11) 02/01/19 00: BUN 12 mg/dl (7-18) 02/01/19 00: Creatinine 0.49 mg/dl (0.6-1.4) L 02/01/19 00: Est Cr Clr Drug Dosing 116.7 ml/min 02/01/19 00:26 Est GFR ( Amer) 140.6 02/01/19 00:26 Est GFR (Non-Af Amer) 121.3 02/01/19 00:26 BUN/Creatinine Ratio 24.8 (10-20) H 02/01/19 00: Glucose 95 mg/dl (70-99) 02/01/19 00: Calcium 8.0 mg/dl (8.5-10.1) L 02/01/19 00: Magnesium 2.0 mg/dl (1.8-2.4) 02/01/19 00:26 Total Bilirubin 0.1 mg/dl (0.2-1) L 02/01/19 00:26 AST 18 U/L (15-37) 02/01/19 00:26 ALT 22 U/L (12-78) 02/01/19 00: Alkaline Phosphatase 106 U/L (45-117) 02/01/19: Troponin I 0.017 ng/ml (0-0.045) 02/01/19 00: Total Protein 6.5 gm/dl (6.4-8.2) 02/01/19 00:26 Albumin 2.2 gm/dl (3.4-5.0) L 02/01/19 00:26 Globulin 4.3 gm/dl (2.5-4.0) H 02/01/19 00:26 Albumin/Globulin Ratio 0.5 (0.9-2) L 02/01/19 00:26 TSH 1.570 uIu/ml (0.300-4.500) 02/01/19 00:26 Diagnostic Findings [place], [place] [phone] CT Scan Report Patient: ELISE BARAHONA Date: 01/31/19 MR#: [id number]: Ashley MAURO BLUM Acct ID:[id number]: SHAYNE Date: [address] Zip: [place] [address] Age: 58Location: CT Sex: M Room/Bed: Att Phy: Chito Calderón M.D.Diagnosis: R/O MASS IN CHEST Kasandra Phy: Shaheed Melendezervice Date: 01/31/19 Fam Phy:Interpreting Phy: Maximilian Knox MD Admit Phy: Ordering Phy: Chito Calderón M.D. cc: ~ CT chest w con CT DOSE: 204.00 mGy.cm HISTORY: Mass R/O MASS IN CHEST TECHNIQUE: Multiaxial CT images of the chest were performed following the intravenous administration of contrast. A dose lowering technique was utilized adhering to the principles of ALARA. COMPARISON: 01/03/2019 FINDINGS: Interval development of a complex fluid and air-filled right upper lobe collection. This measures 8 x 4 cm. The possibility of a small 1.3 cm length of right parasternal air suggesting extension to the chest wall. There continues be components of right upper lobe collapse. Consolidative changes of the right mid and upper lung are similar. Previous described right pleural effusion is somewhat diminished in volume. Diffuse infiltrative change of the right base has diminished. A focal region of consolidative change and potential small second empyema is present. The maximum dimension of 3.3 cm. Focal nodularity left lateral costophrenic angle is present measuring 6 mm. Subtle groundglass changes in the left upper lobe are noted. Given the short- term from the prior exam is suggestive of an inflammatory process. IMPRESSION: 1. Progressive consolidative change right upper lung with current evidence for an air-containing 8 x 4 cm empyema. 2. Potential small linear air tract measuring 1.3 cm extending to the right anterior chest wall raising possibility of involvement of that structure. 3. Additional potential developing 3.5 cm empyema right lower lobe. 4. Improved superimposed infiltrative change right lower lobe. 5. diminished volume of right pleural effusion. The above report was generated using voice recognition software. It may contain grammatical, syntax or spelling errors. Electronically signed by: Maximilian Knox M.D. 01/31/2019 9:36 AM Dictated: 01/31/19924 Transcribed: 01/31/19924 Code Status & VTE Plan VTE Prophylaxis Plan VTE Prophylaxis will be ordered: Yes PG Care Time/CCT Total # of Minutes Spent Total Time Spent: 60 Total Time Spent with Patient: Total time spent is greater than 50% in coordination of care (as documented) at patient's floor/unit and/or counseling patient:
--- NOTE | 2019-02-01 04:28 | Emergency Department Note ---
Entered by Eva Mohan acting as a scribe for Shira Cochran MD History of Present Illness General Chief complaint: Referred by Doctor Stated complaint: empyema Source: patient History of Present Illness Provider complaint: difficulty breathing Onset (ago): minute(s) (prior to arrival) Location: chest Maximum Pain Intensity: 4 Quality: + other (difficulty breathing) Associated symptoms: + chest pain (right side) and + shortness of breath; no fever/chills Treatments prior to arrival: other (Tylenol) The patient, who is a 58 year old male with a medical history of COPD, cardiac murmur and pneumothorax, presents to the Emergency Room with complaints of difficulty breathing that has been intermittent. The patient states that he was diagnosed with pneumonia with pus around the lung. The patient denies fever and states that his temperature was between 98.1 to 98.4. The patient expresses that he has intermittent shortness of breath. The patient expresses that he has been taking Tylenol for pain and fever. The patient states that he has been taking his prescribed medication. The patient explains discomfort on the right side when taking a deep breath. The patient explains that his penicillin allergy diagnosis is from a reaction of diarrhea and hives on separate occasions. Home Medications Home Medications Medication Instructions Recorded Confirmed Type Symbicort 2 puff INHALATION BID 12/29/18 01/31/19 History albuterol sulfate [Ventolin HFA] 1 - 2 puff INHALATION .Q4-6HRS PRN 12/29/18 01/31/19 History cetirizine 10 mg PO DAILY PRN 12/29/18 01/31/19 History multivitamin [Daily-Deanne] 1 tab PO QPM #30 tab 01/18/19 01/31/19 Rx propranolol 15 mg PO BID #45 tab 01/18/19 01/31/19 Rx acetaminophen 650 mg PO Q6H PRN 01/31/19 01/31/19 History bisacodyl [Dulcolax (bisacodyl)] 10 mg [place] DAILY PRN 01/31/19 01/31/19 History fluticasone furoate-vilanterol 1 inh INHALATION DAILY 01/31/19 01/31/19 History [Breo Ellipta] magnesium hydroxide [Milk of 30 ml PO DAILY PRN 01/31/19 01/31/19 History Magnesia] sodium phosphates [Fleet Enema] 118 ml [place] Q24H PRN 01/31/19 01/31/19 History tiotropium bromide [Spiriva with 1 cap INHALATION DAILY 01/31/19 01/31/19 History HandiHaler] umeclidinium [Incruse Ellipta] 1 inh INHALATION DAILY 01/31/19 01/31/19 History Allergies Allergy/AdvReac Type Severity Reaction Status Date / Time erythromycin base Allergy Unknown Unknown Verified 01/31/19 23:28 Penicillins Allergy Unknown Unknown Verified 01/31/19 23:28 NITRATES IN PROCESSED MEATS Allergy Severe Difficulty Uncoded 01/31/19 23:28 Breathing Past Med/Surg History Medical History Elevated troponin GI bleed (Resolved) COPD (chronic obstructive pulmonary disease) (Chronic) Abdominal mass removed at [facility] - he cannot recall details; he was in 3rd grade Avascular necrosis of hip right Surgical History Hx of appendectomy Family History Father Hairy cell leukemia Mother Multiple myeloma Social History Preferred Language: Bengali Communication Ability: Effective Marriage Counselor Minister Required: No Beliefs That Will Affect Care: None marital status: Single marital status details: no children Current Living Situation: Spouse Current Living Situation Comment: lives in [place] by himself current occupational status: disabled 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 and A total of 10 systems reviewed and were otherwise negative Physical Exam Vital Signs Vital Signs - 24 hr 01/31/19 22:59 01/31/19 23:05 01/31/19 23:30 Temperature 36.5 C Temperature Source Oral Sepsis Recent Fever Within 48 Hours No Sepsis Action Taken by Nursing No Action Required Pulse Rate 91 H 88 87 Pulse Rate [Left Apical] Pulse Rate [Right Finger] Pulse Rate from SpO2 Sensor 86 89 88 Pulse Rhythm Regular Pulse Strength Normal Respiratory Rate 23 23 23 Respiratory Effort / Characteristics Non-Labored Spontaneous Respiratory Depth Normal Respiratory Pattern Regular Blood Pressure 126/79 126/79 Blood Pressure [Right Arm] Blood Pressure Mean 94 94 Blood Pressure Mean [Right Arm] Blood Pressure Position Lying Pulse Oximetry 97 97 98 Oxygen Delivery Method Room Air 02/01/19 00:00 02/01/19 00:30 02/01/19 00:41 Temperature Temperature Source Sepsis Recent Fever Within 48 Hours Sepsis Action Taken by Nursing Pulse Rate 95 H 83 81 Pulse Rate [Left Apical] Pulse Rate [Right Finger] 80 Pulse Rate from SpO2 Sensor 94 H 84 82 Pulse Rhythm Pulse Strength Respiratory Rate 28 H 23 25 H Respiratory Effort / Characteristics Respiratory Depth Respiratory Pattern Blood Pressure 114/74 Blood Pressure [Right Arm] 114/74 Blood Pressure Mean 87 Blood Pressure Mean [Right Arm] 87 Blood Pressure Position Pulse Oximetry 98 96 96 Oxygen Delivery Method Room Air 02/01/19 01:00 02/01/19 01:30 02/01/19 02:00 Temperature Temperature Source Sepsis Recent Fever Within 48 Hours Sepsis Action Taken by Nursing Pulse Rate 81 82 83 Pulse Rate [Left Apical] Pulse Rate [Right Finger] Pulse Rate from SpO2 Sensor 81 84 84 Pulse Rhythm Pulse Strength Respiratory Rate 22 21 21 Respiratory Effort / Characteristics Respiratory Depth Respiratory Pattern Blood Pressure 114/74 110/72 106/72 Blood Pressure [Right Arm] Blood Pressure Mean 87 84 83 Blood Pressure Mean [Right Arm] Blood Pressure Position Pulse Oximetry 96 95 97 Oxygen Delivery Method 02/01/19 02:29 02/01/19 02:31 02/01/19 02:32 Temperature Temperature Source Sepsis Recent Fever Within 48 Hours Sepsis Action Taken by Nursing Pulse Rate 89 86 86 Pulse Rate [Left Apical] Pulse Rate [Right Finger] Pulse Rate from SpO2 Sensor 91 H 88 87 Pulse Rhythm Pulse Strength Respiratory Rate 25 H 20 22 Respiratory Effort / Characteristics Respiratory Depth Respiratory Pattern Blood Pressure 114/70 101/77 Blood Pressure [Right Arm] Blood Pressure Mean 84 85 Blood Pressure Mean [Right Arm] Blood Pressure Position Pulse Oximetry 99 98 97 Oxygen Delivery Method 02/01/19 02:59 02/01/19 03:15 Temperature 36.7 C Temperature Source Oral Sepsis Recent Fever Within 48 Hours Sepsis Action Taken by Nursing Pulse Rate 86 Pulse Rate [Left Apical] 87 Pulse Rate [Right Finger] Pulse Rate from SpO2 Sensor Pulse Rhythm Pulse Strength Respiratory Rate 19 27 H Respiratory Effort / Characteristics Non-Labored Spontaneous Respiratory Depth Normal Respiratory Pattern Regular Blood Pressure 101/77 Blood Pressure [Right Arm] 123/89 Blood Pressure Mean Blood Pressure Mean [Right Arm] 100 Blood Pressure Position Pulse Oximetry 98 98 Oxygen Delivery Method Room Air Nasal Cannula Vital signs noted to be afebrile. General: Chronically ill-appearing, in no significant distress. HEENT: No scleral icterus, PERRLA, neck supple. Atraumatic. Cardiovascular: Regular rate and rhythm, no extra sounds. Pulmonary: Coarse breath sounds on the right, normal work of breathing. Abdomen: Soft, nontender, nondistended, positive bowel sounds. Musculoskeletal: Atraumatic, no peripheral edema. Neurologic: Patient awake alert and oriented x 3 Skin: Warm, dry, no rash Course 0001: Past medical records reviewed. The patient was evaluated in room A12. A complete history and physical exam was performed. 0241: I reviewed the patient's case with Dr. Keane, [facility] Hospitalist. He will evaluate the patient for further management. Consultations Consultation #1: I reviewed the patient's case with Dr. Keane, [facility] Hospitalist. He will evaluate the patient for further management. Time: 02:41 Administered Medications Discontinued Medications Sodium Chloride (Nss 1000ml) 1,000 mls @ 125 mls/hr IV .Q8H CECILIO Stop: 02/01/19 07:44 Last Infusion: 02/01/19 03:15 Dose: 0 mls/hr Documented by: [id number] Admin: 01/31/19 23:56 Dose: 125 mls/hr Documented by: [id number] Aztreonam 1,000 mg/ Dextrose 110 mls @ 100 mls/hr IV NOW STA; Protocol Stop: 02/01/19 02:35 Last Infusion: 02/01/19 02:52 Dose: 0 mls/hr Documented by: [id number] Admin: 02/01/19 01:55 Dose: 100 mls/hr Documented by: [id number] Vancomycin HCl 1,250 mg/ (Sodium Chloride) 525 mls @ 200 mls/hr IV NOW ONE Stop: 02/01/19 04:07 Last Infusion: 02/01/19 04:41 Dose: 0 mls/hr Documented by: [id number] Admin: 02/01/19 01:55 Dose: 200 mls/hr Documented by: [id number] Levofloxacin/Dextrose (Levaquin/D5w) 750 mg in 150 mls @ 100 mls/hr IV Q24H CECILIO Stop: 02/08/19 01:29 Last Infusion: 02/01/19 03:25 Dose: 0 mls/hr Documented by: [id number] Admin: 02/01/19 01:55 Dose: 100 mls/hr Documented by: [id number] Medical Decision Making Differential Diagnosis Differential diagnosis includes: infection, reactive airway disease, pneumonia, pneumothorax, COPD, CHF, cardiac ischemia, pulmonary embolism, musculoskeletal, gastrointestinal empyema as well as others were entertained. Medical Records Attestation: I reviewed the patient's medical records. Home Medications Current Medication List: was personally reviewed by me Laboratory Data Attestation: I reviewed the patient's lab results. Result diagrams: 02/01/19 04:10 02/01/19 04:10 Lab Results 02/01/19 02/01/19 Range/Units 00:26 00:26 WBC 15.28 H (4.8-10.8) K/uL RBC 3.20 L (4.7-6.1) M/uL Hgb 10.1 L (14.0-18.0) g/dL Hct 30.3 L (42-52) % MCV 94.7 (80-100) fL MCH 31.6 (25-34) pg MCHC 33.3 (32-36) g/dL RDW Std Deviation 51.4 H (36.4-46.3) fL RDW Coeff of Jm 14.9 H (11.5-14.5) % Plt Count 449 H (130-400) K/uL MPV 8.7 (7.4-10.4) fL Immature Gran % (Auto) 2.2 % Neut % (Auto) 64.7 % Lymph % (Auto) 18.2 % [place] % (Auto) 10.9 % Eos % (Auto) 3.1 % Baso % (Auto) 0.9 % Immature Gran # (Auto) 0.34 H (0.00-0.02) K/uL Neut # (Auto) 9.88 H (1.4-6.5) K/uL Lymph # (Auto) 2.78 (1.2-3.4) K/uL [place] # (Auto) 1.67 H (0.11-0.59) K/uL Eos # (Auto) 0.48 (0-0.5) K/uL Baso # (Auto) 0.13 (0-0.2) K/uL Sodium 138 (136-145) mmol/L Potassium 4.0 (3.5-5.1) mmol/L Chloride 106 (98-107) mmol/L Carbon Dioxide 25 (21-32) mmol/L Anion Gap 7.0 (3-11) BUN 12 (7-18) mg/dl Creatinine 0.49 L (0.6-1.4) mg/dl Est Cr Clr Drug Dosing 116.7 ml/min Est GFR ( Amer) 140.6 Est GFR (Non-Af Amer) 121.3 BUN/Creatinine Ratio 24.8 H (10-20) Glucose 95 (70-99) mg/dl Calcium 8.0 L (8.5-10.1) mg/dl Magnesium 2.0 (1.8-2.4) mg/dl Total Bilirubin 0.1 L (0.2-1) mg/dl AST 18 (15-37) U/L ALT 22 (12-78) U/L Alkaline Phosphatase 106 (45-117) U/L Troponin I 0.017 (0-0.045) ng/ml Total Protein 6.5 (6.4-8.2) gm/dl Albumin 2.2 L (3.4-5.0) gm/dl Globulin 4.3 H (2.5-4.0) gm/dl Albumin/Globulin Ratio 0.5 L (0.9-2) TSH 1.570 (0.300-4.500) uIu/ml ECG Data Attestation: I personally reviewed and interpreted this ECG as follows: Indication: SOB/dyspnea Rate (beats per minute): 87 Rhythm: normal sinus Findings: + other (T wave abnormality in the anterior gill); no ectopy Comparison ECG Date: from (01/27/19) Change: the following changes noted (T wave abnormalities are slightly improved) Blood Pressure Blood Pressure Findings: Normal blood pressure MDM Narrative This patient was evaluated and appeared to be in no significant distress. Past records were reviewed including the CT scan of the chest performed earlier today. Empyema is noted. Patient does have a slightly higher white count than his baseline. Blood cultures were obtained. Patient was medicated with IV aztreonam, vancomycin and Levaquin. He has grown out fungal infection from a recent thoracentesis in December. Patient's case was discussed with the pulmonary medicine PA, Neil De La Cruz PA-C. Patient will be evaluated by the internal medicine service for admission by Dr. Keane and pulmonary/thoracic surgery consultation. Patient is aware of the findings and plan and agrees. Impression & Plan Empyema Discharge Plan Visit Data *Final* Discharge Date/Time: 02/01/19 02:59 Chief Complaint: Referred by Doctor Stated Complaint: empyema ED Provider: Shira Cochran Discharge Problem: Empyema Patient Disposition: Admitted As Inpatient Discharge Instructions Interventions: ED Discharge Assessment Last Done: 02/01/19 02:59 The scribe's documentation has been prepared under my direction and personally reviewed by me in its entirety. I confirm that the note above accurately reflects all work, treatment, procedures, and medical decision making performed by me.
[2019-02-01 04:30] LABS: Hemoglobin 10.7 g/dL (14.0-18.0); Mean Corpuscular Hgb Conc 32.4 g/dL (32-36); Mean Corpuscular Volume 95.7 fL (80-100); Mean Platelet Volume 8.5 fL (7.4-10.4); Platelet Count 460 K/uL (130-400); RDW Coefficient of Variation 14.7 % (11.5-14.5); RDW Standard Deviation 51.5 fL (36.4-46.3); Red Blood Count 3.45 M/uL (4.7-6.1); White Blood Count 11.93 K/uL (4.8-10.8)
[2019-02-01] MEDS ORDERED: PNEUMOCOCCAL ADMINISTRATION CHARGE ONE (04:45)
[2019-02-01] MEDS ORDERED: PNEUMOCOCCAL POLYSACCHARIDES 25 MCG/0.5 ML VIAL/SYR IM ONE (04:45)
[2019-02-01 04:49] LABS: BUN Creatinine Ratio 20.7 (10-20); Creatinine Clr Calc Pharmacy 113.6 ml/min; Est GFR (African American) 140.6; Est GFR (Non-African American) 121.3; Potassium 3.9 mmol/L (3.5-5.1)
[2019-02-01 07:05] LABS: INR 1.1 (0.9-1.1); Prothrombin Time 10.9 Seconds (9.0-12.0)
[2019-02-01] MEDS: ENOXAPARIN INJ 40 MG/0.4 ML SYR SQ SCH (08:01)
[2019-02-01] MEDS: PROPRANOLOL HCL 10 MG TAB PO SCH ×2 (08:01→20:09)
[2019-02-01] MEDS: FAMOTIDINE 20 MG TAB PO SCH ×2 (08:02→20:10)
--- NOTE | 2019-02-01 08:37 | Consultation Report ---
DATE OF CONSULTATION: 02/01/2019 REASON FOR CONSULTATION: Possible empyema. HISTORY OF PRESENT ILLNESS: Fabian Castillo is a 58-year-old heavy drinker and smoker who was readmitted to [facility] today after being discharged about 2 weeks ago. The patient presented back with weakness and shortness of breath. He has multiple medical issues including alcohol, tobacco abuse, severe deconditioning, cachexia with heart failure and chronic obstructive pulmonary disease. He has well over [id number] history of cigarette smoking. He also has atrial fibrillation with a rapid ventricular response and is suffered from alcohol withdrawal. He had a chest tube inserted and the MIST-2 protocol was instituted and continued as there did not appear to be an empyema. He improved and was discharged home only to return. CT scan now shows an air-fluid level in his chest. He has an ejection fraction of about 30%-35%. I have been asked to comment on this from a thoracic surgery standpoint. PAST MEDICAL HISTORY: 1. Alcohol abuse. 2. History of heavy cigarette smoking (2-1/2 packs per day for 40 years or about 100 pack years). 3. Chronic obstructive pulmonary disease. 4. Pneumonia in the past. 5. Avascular necrosis of the hip. 6. Gastrointestinal bleeding. 7. Cachexia. 8. History of atrial fibrillation with rapid ventricular response. 9. Alcohol withdrawal. 10. Cardiomyopathy. PAST SURGICAL HISTORY: 1. Appendectomy. 2. Excision of abdominal mass as a child at [facility]. MEDICATIONS: Please see chart. ALLERGIES: ERYTHROMYCIN BASE, PENICILLIN, "NITRATES," PROCESSED MEAT. SOCIAL HISTORY: The patient lives alone with a cat. 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 He no longer works. He has a very poor support system. FAMILY MEDICAL HISTORY: It is interesting that his mother from multiple myeloma, father from hairy cell leukemia. REVIEW OF SYSTEMS: He wears glasses but he denies any recent visual or auditory symptoms. He denies any urinary symptoms or GI symptoms now. He is eating house diet as we saw him for breakfast. He has had a cough and he is quite short of breath. He has also been very weak. He had trouble getting even up to the bathroom. He was in rehab facility from 01/18 to 01/31. He is unable to stay at home as he is so weak. He has had GI bleeding in the past but none recently. Denies any neurologic symptoms such as seizures or transient ischemic attacks. PHYSICAL EXAMINATION: GENERAL: This is a cachectic-appearing male who stands 5 feet 7 inches tall and weighs about 105 pounds. He has temporal wasting. He wears glasses. He has a braun. HEENT: His teeth are in very poor repair, but I do not see an abscess. He does have several cavities. His tongue is midline. NECK: Thin but supple. He has no supraclavicular or cervical lymphadenopathy, neck vein distention or carotid bruits. LUNGS: He has decreased breath sounds with rhonchi on the right. He also has expiratory wheezing. He is very thin. He has no axillary adenopathy. HEART: He has a regular rate and rhythm of his heart. ABDOMEN: Soft, nontender. He has no peripheral edema. No joint effusions. Excellent peripheral pulses. NEUROLOGIC: He has no asterixis. He is awake, alert and oriented. DATA: I reviewed his CT scan. He does have a development of a complex fluid area with an air-fluid level in the right upper lobe. I reviewed his film with Dr. Moses and Dr. Knox. He also has an area in the right lower lobe posteriorly, but this has gotten smaller since last time and I think this is an infiltrative change. He has had some improvement in the infiltrative process in his right lung since his last CT scan a month ago. ASSESSMENT AND PLAN: Possible empyema. Dr. Moses has agreed to insert a pigtail catheter into this patient's right upper chest. Depending on what we find, we may well institute the MIST-2 protocol. 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 Thank you very much.
[2019-02-01 11:16] LABS: Appearance Urine Clear (Clear); Bilirubin Urine Negative (Negative); Blood Urine Negative (Negative); Color Urine Yellow; Glucose Urine UA Negative (Negative); Ketones Urine Negative (Negative); Leukocyte Esterase Urine Negative (Negative); Nitrite Urine Negative (Negative); Protein Urine Negative (Negative); Specific Gravity Urine 1.013 (1.000-1.030); Urobilinogen Urine Negative (Negative)
--- NOTE | 2019-02-01 14:20 | CT Scan Report ---
CT pulmonary abscess drainage CT DOSE: 225.22 mGycm CLINICAL HISTORY: Empyema/pulmonary abscess TECHNIQUE: Helical localization images were acquired. No intravenous contrast was administered. A do se lowering technique was utilized adhering to the principles of ALARA. COMPARISON STUDY: CT scan dated 01/31/2019 FINDINGS: A timeout was performed. The risks of the procedure were explained to the patient and informed consent was obtained. Localization scans were performed. An appropriate entry site was obtained and the skin was prepped using marked. The patient was prepped and draped in sterile fashion. The skin was anesthetized with 1% lidocaine. A skin neck was made. An anterior approach was utilized. A 10 Sammarinese pigtail drainage catheter was introduced into the lung collection. Several cc of purulent material were aspirated and sent for laboratory analysis as specified by the justin clinician. The pigtail catheter was locked with a string. The catheter was affixed to the skin and attached to a n accordion vacuum drainage bag. Pulmonary while be managing the catheter. IMPRESSION: 1. Successful percutaneous drainage of a right upper lobe pulmonary abscess/empyema with a 10 Sammarinese pigtail drainage catheter. Electronically signed by: Sung Moses M.D. 02/01/2019 2:19 PM
[2019-02-01] MEDS: BREO ELLIPTA ~ ORDER AWAITING ACTION SCH ×2 (14:49→14:51)
[2019-02-01] MEDS: TIOTROPIUM BROMIDE 5 PUFF/90 MCG INH INH SCH (14:50)
--- NOTE | 2019-02-01 15:06 | XRay Report ---
XR chest 1V portable CLINICAL HISTORY: empyema COMPARISON STUDY: Chest radiograph January 27, 2019. Chest CT January 31, 2019. FINDINGS: Note is made of interval placement of a percutaneous drain within the right upper hemithora x within the fluid collection shown on CT of January 31, 2019. There is no pneumothorax. Right uppe r lung airspace opacity persists. Left lung is clear. There is a small right pleural effusion. There is no evidence for pulmonary edema. Mild right lung volume loss is noted. IMPRESSION: Interval placement of a percutaneous drain within the right empyema. Persistent right upp er lung airspace opacity with no pneumothorax. Small right pleural effusion. Electronically signed by: Randolph Arredondo M.D. 02/01/2019 3:05 PM
[2019-02-01 15:22] LABS: Glucose Pleural Fluid 55 mg/dl
[2019-02-01 15:31] LABS: Amylase Pleural Fluid 23 U/L
[2019-02-01 15:51] LABS: Appearance Pleural Fluid TURBID; Color Pleural Fluid RED; Mononuclear WBC Pleural 0.6 %; Polynuclear WBC Pleural 99.4 %; RBC Pleural Fluid (A) 370100 /uL; Source Pleural Fluid RIGHT LUNG; WBC Pleural Fluid (A) 243400 /uL
[2019-02-01 16:41] LABS: LDH Pleural Fluid 17671 U/L
[2019-02-01] MEDS: metroNIDAZOLE 500 MG/100 ML BAG IV SCH (18:03)
[2019-02-01] MEDS: CEFEPIME 2,000 MG in SYRINGE 7.5 ML IV SCH (18:03)
[2019-02-01] MEDS: MULTIVITAMIN TAB PO SCH (20:08)
[2019-02-01] MEDS: BUDESONIDE/FORMOTEROL FUMARATE 160/4.5 60 PUFFS/INHALER INH SCH (20:10)
[2019-02-02] MEDS: BREO ELLIPTA ~ ORDER AWAITING ACTION SCH ×2 (00:06→08:35)
[2019-02-02] MEDS: CEFEPIME 2,000 MG in SYRINGE 7.5 ML IV SCH ×3 (02:11→17:36)
[2019-02-02] MEDS: metroNIDAZOLE 500 MG/100 ML BAG IV SCH ×3 (02:12→17:37)
--- NOTE | 2019-02-02 06:52 | XRay Report ---
XR chest 1V portable CLINICAL HISTORY: empyema COMPARISON STUDY: 02/01/2019 FINDINGS: Pigtail catheter overlying the right pulmonary apex unchanged. No change in increased density right pulmonary apex. Left lung is clear. IMPRESSION: No change compared to the prior study. Stable location of the right pigtail catheter. Un changed increased density right pulmonary apex. The above report was generated using voice recognition software. It may contain grammatical, syntax or spelling errors. Electronically signed by: Maximilian Knox M.D. 02/02/2019 6:50 AM
[2019-02-02 08:08] LABS: Hematocrit (blood only) 33.2 % (42-52); Hemoglobin 11.3 g/dL (14.0-18.0); Mean Corpuscular Hemoglobin 31.6 pg (25-34); Mean Corpuscular Volume 92.7 fL (80-100); Mean Platelet Volume 8.7 fL (7.4-10.4); Platelet Count 413 K/uL (130-400); RDW Standard Deviation 51.2 fL (36.4-46.3); Red Blood Count 3.58 M/uL (4.7-6.1); White Blood Count 13.96 K/uL (4.8-10.8)
[2019-02-02] MEDS: PROPRANOLOL HCL 10 MG TAB PO SCH ×2 (08:38→20:20)
[2019-02-02] MEDS: ENOXAPARIN INJ 40 MG/0.4 ML SYR SQ SCH (08:39)
[2019-02-02] MEDS: FAMOTIDINE 20 MG TAB PO SCH ×2 (08:39→20:20)
[2019-02-02] MEDS: TIOTROPIUM BROMIDE 5 PUFF/90 MCG INH INH SCH (08:40)
[2019-02-02] MEDS: BUDESONIDE/FORMOTEROL FUMARATE 160/4.5 60 PUFFS/INHALER INH SCH ×2 (08:41→20:19)
[2019-02-02 08:45] LABS: BUN Creatinine Ratio 21.3 (10-20); Calcium 9.2 mg/dl (8.5-10.1); Creatinine Clr Calc Pharmacy 111.7 ml/min; Est GFR (African American) 141.8; Est GFR (Non-African American) 122.3; Potassium 4.2 mmol/L (3.5-5.1)
[2019-02-02] MEDS ORDERED: ALTEPLASE, RECOMBINANT 1 MG/ML 2ML VIAL INSTIL ONE (09:00)
--- NOTE | 2019-02-02 10:00 | Infectious Disease Consult ---
Date of Consultation February 02, 2019 Assessment & Plan (1) Empyema: continue current abx, follow cultures. will likely need 21 days abx. final recs based on culture results. History of Present Illness Attending Physician: Rajeev Quinn pt admitted with fatigue, recenly d/c from snf. Imaging in ER revealed right lung 8x4cm collection with ? air tract, was evalulated by CT surgery, chest tube placed, fluid with 243,000 wbc 99%N - cultures done, growing probable pseudomonas species, fungal and AFB pending. wbc 11 today, improving, on cefepime and flagyl - tolerating well. He denies any cp, sob, cough, no pain at chest tube site. no abd pain, no n/v/d. no f/c. Allergies Allergy/AdvReac Type Severity Reaction Status Date / Time erythromycin base Allergy Unknown Unknown Verified 01/31/19 23:28 Penicillins Allergy Unknown Unknown Verified 01/31/19 23:28 NITRATES IN PROCESSED MEATS Allergy Severe Difficulty Uncoded 01/31/19 23:28 Breathing Home Medications Home Medications Medication Instructions Recorded Confirmed Type Symbicort 2 puff INHALATION BID 12/29/18 01/31/19 History albuterol sulfate [Ventolin HFA] 1 - 2 puff INHALATION .Q4-6HRS PRN 12/29/18 01/31/19 History cetirizine 10 mg PO DAILY PRN 12/29/18 01/31/19 History multivitamin [Daily-Deanne] 1 tab PO QPM #30 tab 01/18/19 01/31/19 Rx propranolol 15 mg PO BID #45 tab 01/18/19 01/31/19 Rx acetaminophen 650 mg PO Q6H PRN 01/31/19 01/31/19 History bisacodyl [Dulcolax (bisacodyl)] 10 mg [place] DAILY PRN 01/31/19 01/31/19 History fluticasone furoate-vilanterol 1 inh INHALATION DAILY 01/31/19 01/31/19 History [Breo Ellipta] magnesium hydroxide [Milk of 30 ml PO DAILY PRN 01/31/19 01/31/19 History Magnesia] sodium phosphates [Fleet Enema] 118 ml [place] Q24H PRN 01/31/19 01/31/19 History tiotropium bromide [Spiriva with 1 cap INHALATION DAILY 01/31/19 01/31/19 History HandiHaler] umeclidinium [Incruse Ellipta] 1 inh INHALATION DAILY 01/31/19 01/31/19 History Patient History Medical History Elevated troponin GI bleed (Resolved) COPD (chronic obstructive pulmonary disease) (Chronic) Abdominal mass removed at [facility] - he cannot recall details; he was in 3rd grade Avascular necrosis of hip right Surgical History Hx of appendectomy Family History Father Hairy cell leukemia Mother Multiple myeloma Social History Preferred Language: Belarusian Communication Ability: Effective Advertising Operations Manager Required: No Beliefs That Will Affect Care: None marital status: Single marital status details: no children Current Living Situation: Spouse Current Living Situation Comment: lives in [place] by himself current occupational status: disabled 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 Feels Safe at Home: Yes Smoking Status: Former smoker Tobacco Type: cigarettes ; Age Started Using Tobacco: 16 ; packs per day: 1 ; Cigarettes Per Day: 20 ; Hx Alcohol Use: Yes Alcohol type: beer Alcohol Intake Frequency: Daily Alcohol Intake Frequency Comment: 4-6 beers/day Hx Substance Use: No Review of Systems Review of Systems: All systems reviewed & are unremarkable except as noted in HPI & below Physical Exam Constitutional: WD/WN, vitals as above Eyes: PERRL, conjunctivae normal, anicteric sclerae ENMT: external ear and nose normal, oropharynx normal Neck: normal visual inspection Respiratory: normal respiratory effort, lungs clear to auscultation Auscultation: + diminished lung sounds Cardiovascular: RRR, no murmur, no edema Gastrointestinal (Abdomen): normal bowel sounds, soft, nontender, no hepatosplenomegaly Musculoskeletal: no cyanosis or clubbing, extremities motor strength 5/5 Skin: no rashes, warm and dry Psychiatric: A+Ox3, euthymic affect Results & Data Vital Signs (Past 12 Hours) Vital Signs Temp Pulse Pulse Pulse Resp BP Pulse Ox 02/02/19 07:39 81 02/02/19 07:33 36.8 C 90 22 121/81 95 02/02/19 03:53 36.8 C 106 H 20 116/81 94 02/02/19 00:00 86 02/01/19 23:56 36.8 C 89 20 119/75 94 Laboratory Results Microbiology 02/01/19 14:05 Pleural Fluid Gram Stain - Final 02/01/19 14:05 Pleural Fluid Aerobic and Anaerobic Culture - Preliminary Probable Pseudomonas species 02/01/19 00:05 Blood Aerobic Blood Culture - Preliminary No growth in Aerobic bottle after 24 hours. 02/01/19 00:05 Blood Anaerobic Blood Culture - Preliminary No growth in Anaerobic bottle after 24 hours. 02/01/19 00:26 Blood Aerobic Blood Culture - Preliminary No growth in Aerobic bottle after 24 hours. 02/01/19 00:26 Blood Anaerobic Blood Culture - Preliminary No growth in Anaerobic bottle after 24 hours. 02/01/19 14:05 Pleural Fluid Fungal Smear - Final PG Care Time/CCT Total # of Minutes Spent Total Time Spent with Patient: Total time spent is greater than 50% in coordination of care (as documented) at patient's floor/unit and/or counseling patient:
--- NOTE | 2019-02-02 12:23 | Surgery Progress Note ---
Date of Service February 02, 2019 Assessment & Plan (1) Empyema: -pt had pigtial placed by radiology yesterday under CT guidance -cultures thus far show probable Pseudomonas -he is receiving antibiotic in the form of cefepime and flagyl -I attempted to manually aspirate fluid from catheter but was only able to obtain minimal amount -today 2 mg Altplase placed in Pigtail under sterile conditions in attempt to help with drainage as catheter has drained minimal over night -will continue to follow serial CXR and follow drainage amounts Subjective Pt. notes his breathing is comfortable at the present time. No shakes chills, fevers lat night. He denies N/V. He denies significant pain from pigtail catheter in right chest. Physical Exam Constitutional: + thin and + cachectic; no acute distress Respiratory: no respiratory distress and no labored breathing BS are decreased R>L with occasional rhonchi Cardiovascular: Rate/Rhythm: regular rate and regular rhythm Results & Data Vital Signs (Past 12 Hours) Vital Signs Temp Pulse Pulse Pulse Resp BP Pulse Ox 02/02/19 11:47 36.5 C 91 H 20 114/74 95 02/02/19 07:39 81 02/02/19 07:33 36.8 C 90 22 121/81 95 02/02/19 03:53 36.8 C 106 H 20 116/81 94
[2019-02-02] MEDS: MULTIVITAMIN TAB PO SCH (20:21)
--- NOTE | 2019-02-02 22:55 | Hospitalist Progress Note ---
Date of Service February 02, 2019 Assessment & Plan (1) Empyema, right: Admit to tele Vanco, Levofloxacin, and Aztreonam given in the ED Fluid was aspirated and confirmed an infection: gram negative bacteria was shown. Patient will continue on cefepime, flagyl. Awaiting final cultures. Consulted thoracic surgery: pt had pigtial placed by radiology under CT guidance Follow daily labs. (2) Weakness: Secondary to #1 (3) COPD (chronic obstructive pulmonary disease): Continue home inhalers PRN albuterol nebs. (4) Severe protein-calorie malnutrition: Patient has BMI is 16.7; Patient has poor nutrition likely from history of alcoholism Discussed calorie intake with patient and his girlfriend Focus on high-protein foods -avoid fast food and processed foods DVT: lovenox. Subjective Patient reports breathing better Patient denies any nausea, vomiting diarrhea, fever, chills. He reports he has a decent appetite. Review of Systems Review of Systems: All systems reviewed & are unremarkable except as noted in HPI & below Physical Exam Physical Exam: Constitutional: WD/WN, vitals as above Eyes: PERRL, conjunctivae normal, anicteric sclerae ENMT: external ear and nose normal, oropharynx normal Neck: normal visual inspection Respiratory: normal respiratory effort, lungs clear to auscultation Auscultation: + diminished lung sounds Cardiovascular: RRR, no murmur, no edema Gastrointestinal (Abdomen): normal bowel sounds, soft, nontender, no hepatosplenomegaly Musculoskeletal: no cyanosis or clubbing, extremities motor strength 5/5 Skin: no rashes, warm and dry Psychiatric: A+Ox3, euthymic affect Results & Data Vital Signs (Past 12 Hours) Vital Signs Temp Pulse Pulse Pulse Resp BP Pulse Ox 02/02/19 20:22 37.1 C 97 H 18 110/74 02/02/19 17:26 36.6 C 90 18 108/73 95 02/02/19 16:00 90 02/02/19 11:47 36.5 C 91 H 20 114/74 95 PG Care Time/CCT Total # of Minutes Spent Total Time Spent with Patient: Total time spent is greater than 50% in coordination of care (as documented) at patient's floor/unit and/or counseling patient:
[2019-02-03] MEDS: metroNIDAZOLE 500 MG/100 ML BAG IV SCH ×3 (01:20→19:07)
[2019-02-03] MEDS: CEFEPIME 2,000 MG in SYRINGE 7.5 ML IV SCH ×3 (01:20→19:08)
[2019-02-03 06:53] LABS: Hematocrit (blood only) 34.6 % (42-52); Hemoglobin 11.7 g/dL (14.0-18.0); Mean Corpuscular Hemoglobin 31.5 pg (25-34); Mean Corpuscular Hgb Conc 33.8 g/dL (32-36); Mean Platelet Volume 8.9 fL (7.4-10.4); Platelet Count 466 K/uL (130-400); RDW Coefficient of Variation 15.3 % (11.5-14.5); RDW Standard Deviation 51.9 fL (36.4-46.3); Red Blood Count 3.72 M/uL (4.7-6.1); White Blood Count 15.04 K/uL (4.8-10.8)
--- NOTE | 2019-02-03 07:13 | XRay Report ---
XR chest 1V portable CLINICAL HISTORY: 58 years-old Male presenting with empyema. TECHNIQUE: Portable upright AP view of the chest was obtained. COMPARISON: 10/02/2018. FINDINGS: Right pleural pigtail catheter terminates in the right upper lung. Cardiomediastinal silhouette uncha nged from prior. Loculated right pleural effusion abdomen the apex. Dense opacity in the right upper lung and right apex. A basilar effusion and architectural distortion of the right lung base may also be present. No pneumothorax. Osseous structures normal. Upper abdomen normal. IMPRESSION: 1. Right pleural pigtail catheter remains in place with the loculated effusion and right apical dens e infiltrate unchanged from prior. Electronically signed by: Cameron Romero M.D. 02/03/2019 7:12 AM
[2019-02-03 07:18] LABS: BUN Creatinine Ratio 29.9 (10-20); Calcium 9.2 mg/dl (8.5-10.1); Creatinine Clr Calc Pharmacy 101.7 ml/min; Est GFR (African American) 134.1; Est GFR (Non-African American) 115.7; Potassium 4.5 mmol/L (3.5-5.1)
--- NOTE | 2019-02-03 07:26 | Surgery Progress Note ---
Date of Service February 03, 2019 Assessment & Plan (1) Empyema: -pt had pigtial placed by radiology under CT guidance on 02/01/19 -cultures show Pseudomonas -he is receiving antibiotic in the form of cefepime and flagyl (organism is sensitive to selected abx.) -I attempted to manually aspirate fluid from catheter again today but was only able to obtain minimal amount of pus like material -CXR today relatively unchanged with perhaps small improvement of aeration in RUL -will continue to follow serial CXR and follow drainage amounts Subjective Pt. notes his breathing remains comfortable. No shakes chills, fevers. He denies N/V. No significant pain from pigtail catheter in right chest. Discussed with RN and pigtail has only drained a few cc of pus like material. Physical Exam Constitutional: + thin and + cachectic; no acute distress Respiratory: no respiratory distress and no labored breathing rhonchi noted with decreased BS on right Cardiovascular: Rate/Rhythm: regular rate and regular rhythm Results & Data Vital Signs (Past 12 Hours) Vital Signs Temp Pulse Pulse Resp BP BP Pulse Ox 02/03/19 03:32 36.7 C 88 18 112/77 94 02/02/19 23:43 37.1 C 83 18 122/75 94 02/02/19 22:20 90 02/02/19 20:22 37.1 C 97 H 18 110/74
[2019-02-03] MEDS: ENOXAPARIN INJ 40 MG/0.4 ML SYR SQ SCH (08:15)
[2019-02-03] MEDS: PROPRANOLOL HCL 10 MG TAB PO SCH ×2 (08:15→21:38)
[2019-02-03] MEDS: TIOTROPIUM BROMIDE 5 PUFF/90 MCG INH INH SCH (08:16)
[2019-02-03] MEDS: FAMOTIDINE 20 MG TAB PO SCH ×2 (08:16→21:38)
[2019-02-03] MEDS: BUDESONIDE/FORMOTEROL FUMARATE 160/4.5 60 PUFFS/INHALER INH SCH ×2 (08:17→21:37)
[2019-02-03] MEDS: MULTIVITAMIN TAB PO SCH (21:38)
--- NOTE | 2019-02-03 22:56 | Hospitalist Progress Note ---
Date of Service February 03, 2019 Assessment & Plan (1) Empyema, right: Admit to tele Vanco, Levofloxacin, and Aztreonam given in the ED Fluid was aspirated and confirmed an infection. Patient will continue on cefepime, flagyl. Awaiting final cultures: gram neg. baci. are shown. Consulted thoracic surgery: pt had pigtial placed by radiology under CT guidance Follow daily labs. (2) Weakness: Secondary to #1 (3) COPD (chronic obstructive pulmonary disease): Continue home inhalers PRN albuterol nebs. (4) Severe protein-calorie malnutrition: Patient has BMI is 16.7; Patient has poor nutrition likely from history of alcoholism Discussed calorie intake with patient and his girlfriend Focus on high-protein foods -avoid fast food and processed foods DVT: lovenox. Subjective Patient reports no new symptoms today. Will monitor for now. Review of Systems Review of Systems: Constitutional- no fever; no weight loss Eyes- no acute visual changes ENT- no sinus drainage; no pharyngitis Pulmonary- no cough, no wheezing, no change in shortness of breath Cardiac- no chest pain, no palpitations, no orthopnea, no dependent edema GI- no nausea, no vomiting, no diarrhea, no melena, no hematochezia - no dysuria, no hematuria Musculoskeletal- no arthralgias, no myalgias Derm- no rashes, no new skin lesions, no changing skin lesions Hematologic- no unusual bruising, no unusual bleeding Lymphatics- no adenopathy Endocrine- no polyuria or polydipsia; no heat or cold intolerance Neuro- no headaches, no focal neurologic symptoms Psych- no anxiety, no depression Physical Exam Physical Exam: Constitutional: WD/WN, vitals as above Eyes: PERRL, conjunctivae normal, anicteric sclerae ENMT: external ear and nose normal, oropharynx normal Neck: normal visual inspection Respiratory: normal respiratory effort, lungs clear to auscultation Auscultation: + diminished lung sounds Cardiovascular: RRR, no murmur, no edema Gastrointestinal (Abdomen): normal bowel sounds, soft, nontender, no hepatosplenomegaly Musculoskeletal: no cyanosis or clubbing, extremities motor strength 5/5 Skin: no rashes, warm and dry Psychiatric: A+Ox3, euthymic affect Results & Data Vital Signs (Past 12 Hours) Vital Signs Temp Pulse Resp BP Pulse Ox 02/03/19 21:35 93 H 117/72 02/03/19 15:03 36.9 C 97 H 19 106/72 95 02/03/19 11:39 36.8 C 84 20 100/65 94 PG Care Time/CCT Total # of Minutes Spent Total Time Spent with Patient: Total time spent is greater than 50% in coordination of care (as documented) at patient's floor/unit and/or counseling patient:
[2019-02-04] MEDS: CEFEPIME 2,000 MG in SYRINGE 7.5 ML IV SCH (00:36)
[2019-02-04] MEDS: metroNIDAZOLE 500 MG/100 ML BAG IV SCH (00:36)
[2019-02-04 06:25] LABS: Creatinine Clr Calc Pharmacy 107.5 ml/min; Est GFR (African American) 137.2; Est GFR (Non-African American) 118.4
--- NOTE | 2019-02-04 07:19 | Infectious Disease Progress Nt ---
Date of Service February 04, 2019 Assessment & Plan (1) Empyema: will change to levaquin as pseudomonas is sensitive, 21 days total. unclear significance of aspergillus, may require treatment, follow fungal culture. Subjective pt culture growing pseudomonas and rare aspergillus. wbc overall improved to 15 yesterday. afebrile. cxr essentially unchanged. blood cultures remain negative. Results & Data Vital Signs (Past 12 Hours) Vital Signs Temp Pulse Resp BP Pulse Ox 02/03/19 23:10 36.7 C 90 18 115/74 96 02/03/19 21:35 93 H 117/72 Laboratory Results Microbiology 02/01/19 14:05 Pleural Fluid Gram Stain - Final 02/01/19 14:05 Pleural Fluid Aerobic and Anaerobic Culture - Preliminary Pseudomonas aeruginosa Aspergillus species 02/01/19 14:05 Pleural Fluid Fungal Smear - Final 02/01/19 14:05 Pleural Fluid Fungal Culture - Preliminary Aspergillus species 02/01/19 14:05 Pleural Fluid Acid Fast Bacilli Smear - Final 02/01/19 00:05 Blood Aerobic Blood Culture - Preliminary No growth in Aerobic bottle after 48 hours. 02/01/19 00:05 Blood Anaerobic Blood Culture - Preliminary No growth in Anaerobic bottle after 48 hours. 02/01/19 00:26 Blood Aerobic Blood Culture - Preliminary No growth in Aerobic bottle after 48 hours. 02/01/19 00:26 Blood Anaerobic Blood Culture - Preliminary No growth in Anaerobic bottle after 48 hours. PG Care Time/CCT Total # of Minutes Spent Total Time Spent with Patient: Total time spent is greater than 50% in coordination of care (as documented) at patient's floor/unit and/or counseling patient:
[2019-02-04] MEDS: TIOTROPIUM BROMIDE 5 PUFF/90 MCG INH INH SCH (08:06)
[2019-02-04] MEDS: BUDESONIDE/FORMOTEROL FUMARATE 160/4.5 60 PUFFS/INHALER INH SCH ×2 (08:06→20:56)
[2019-02-04] MEDS: ENOXAPARIN INJ 40 MG/0.4 ML SYR SQ SCH (08:35)
[2019-02-04] MEDS: FAMOTIDINE 20 MG TAB PO SCH ×2 (08:36→21:04)
[2019-02-04] MEDS: PROPRANOLOL HCL 10 MG TAB PO SCH ×2 (08:36→20:57)
[2019-02-04] MEDS: levoFLOXacin 500 MG TAB PO SCH (10:46)
--- NOTE | 2019-02-04 11:48 | Surgery Progress Note ---
Date of Service February 04, 2019 Assessment & Plan (1) Empyema, right: s/p pigtail catheter placement by radiology under CT guidance on 02/01/19 -cultures initially grew pseudomonas -pt. was being treated with cefepime but has polo transitioned to levaquin -updated cultures now also show Aspergillus -ID has seen and are following culture and did not initiate treatment for this currently -today I again attempted to manually aspirate fluid from pigtial catheter and was not able to obtain any fluid -unsure if pt. will require surgical intervention -he has polo made NPO at midnight tonight Subjective Pt. notes he feels good today. No shakes, chills, fevers. Breathing is comfortable. No hemoptysis. Discussed with RN--catheter drained minimal last 24 hours. Physical Exam Constitutional: + thin; no acute distress Respiratory: rhonchi noted bilaterally Results & Data Vital Signs (Past 12 Hours) Vital Signs Temp Pulse Resp BP Pulse Ox 02/04/19 07:44 36.6 C 91 H 16 111/75 95
--- NOTE | 2019-02-04 19:12 | Anesthesiology Consultation ---
Date of Service February 04, 2019 Assessment & Plan (1) Encounter for pre-operative examination: Chart Review Chart Review: Acceptable Risk for Surgery and Patient NOT seen in Pre Admission Testing Consults Requested none History Surgery Operation Date: 02/05/19 12:00 Proposed Procedures p Right Video Assisted Thoracoscopy with Decortication - Oswaldo Forrest MD, FACS Height/Weight Height: 5 ft 7 in Weight: 48.5 kg Allergies Allergy/AdvReac Type Severity Reaction Status Date / Time erythromycin base Allergy Unknown Unknown Verified 01/31/19 23:28 Penicillins Allergy Unknown Unknown Verified 01/31/19 23:28 NITRATES IN PROCESSED MEATS Allergy Severe Difficulty Uncoded 01/31/19 23:28 Breathing Medications Home Medications Medication Instructions Recorded Confirmed Last Taken Symbicort 2 puff INHALATION BID 12/29/18 01/31/19 01/27/19 albuterol sulfate [Ventolin HFA] 1 - 2 puff INHALATION .Q4-6HRS PRN 12/29/1812/29/18 cetirizine 10 mg PO DAILY PRN 12/29/18 01/31/19 Unknown multivitamin [Daily-Deanne] 1 tab PO QPM #30 tab 01/18/19 01/31/19 01/27/19 propranolol 15 mg PO BID #45 tab 01/18/19 01/31/19 01/27/19 acetaminophen 650 mg PO Q6H PRN 01/31/19 01/31/19 Unknown bisacodyl [Dulcolax (bisacodyl)] 10 mg MD DAILY PRN 01/31/19 01/31/19 Unknown fluticasone furoate-vilanterol 1 inh INHALATION DAILY 01/31/19 01/31/19 Unknown [Breo Ellipta] magnesium hydroxide [Milk of 30 ml PO DAILY PRN 01/31/19 01/31/19 Unknown Magnesia] sodium phosphates [Fleet Enema] 118 ml MD Q24H PRN 01/31/19 01/31/19 Unknown tiotropium bromide [Spiriva with 1 cap INHALATION DAILY 01/31/19 01/31/19 Unknown HandiHaler] umeclidinium [Incruse Ellipta] 1 inh INHALATION DAILY 01/31/19 01/31/19 Unknown Active Medications Generic Name Dose Route Start Last Admin Trade Name Freq PRN Reason Stop Dose Admin Acetaminophen 650 mg 02/01/19 04:05 02/03/19 17:17 Tylenol PO 03/03/19 04:04 650 mg Q6H PRN Administration pain/temp over 101 Budesonide/Formoterol Fumarate 2 puffs 02/01/19 21:00 02/04/19 08:06 Symbicort 160mcg/4.5mcg INH 03/03/19 20:59 2 puffs BID CECILIO Administration Enoxaparin Sodium 40 mg 02/01/19 09:00 02/04/19 08:35 Lovenox SQ 03/03/19 08:59 40 mg DAILY CECILIO Administration Famotidine 20 mg 02/01/19 09:00 02/04/19 08:36 Pepcid PO 03/03/19 08:59 20 mg BID CECILIO Administration Levofloxacin 500 mg 02/04/19 11:00 02/04/19 10:46 Levaquin PO 02/11/19 10:59 500 mg DAILY@1100 CECILIO Administration Multivitamins 1 tab 02/01/19 21:00 02/03/19 21:38 Multivitamin Tab PO 03/03/19 20:59 1 tab QPM CECILIO Administration Propranolol HCl 15 mg 02/01/19 09:00 02/04/19 08:36 Inderal PO 03/03/19 08:59 15 mg BID CECILIO Administration Tiotropium Anthon 1 puffs 02/01/19 12:15 02/04/19 08:06 Spiriva INH 03/03/19 12:14 1 puffs DAILY CECILIO Administration Past Medical History Medical History Elevated troponin GI bleed (Resolved) COPD (chronic obstructive pulmonary disease) (Chronic) Abdominal mass removed at [facility] - he cannot recall details; he was in 3rd grade Avascular necrosis of hip right Past Family History Family History Father Hairy cell leukemia Mother Multiple myeloma Past Surgical History Surgical History Hx of appendectomy Social History Smoking Status: Former smoker tobacco type: cigarettes Smoking cigarettes per day: 20 Hx Alcohol Use: Yes Alcohol type: beer alcohol intake frequency: 3 or more drinks per day Alcohol Intake Frequency Comment: "2-3 6-packs a week" Hx Substance Use: No substance use type: does not use Physical Exam Vital Signs Last Vital Signs Temp 36.6 C 02/04/19 15:00 Pulse 92 H 02/04/19 15:00 Resp 20 02/04/19 15:00 BP 118/77 02/04/19 15:00 Pulse Ox 94 02/04/19 15:00 Testing Laboratory Results 02/03/19 06:16 02/04/19 05:11 PT 10.9 Seconds (9.0-12.0) 02/01/19 00:26 INR 1.1 (0.9-1.1) 02/01/19 00:26 Urine Color Yellow 02/01/19 11:00 Urine Appearance Clear (Clear) 02/01/19 11:00 Urine pH 6.0 (4.5-7.5) 02/01/19 11:00 Ur Specific [place] 1.013 (1.000-1.030) 02/01/19 11:00 Urine Protein Negative (Negative) 02/01/19 11:00 Urine Glucose (UA) Negative (Negative) 02/01/19 11:00 Urine Ketones Negative (Negative) 02/01/19 11:00 Urine Nitrite Negative (Negative) 02/01/19 11:00 Ur Leukocyte Esterase Negative (Negative) 02/01/19 11:00 Blood Type O Positive 02/04/19 05:15 Antibody Screen NEGATIVE 02/04/19 05:15 02/01/19 14:05 Gram Stain - Final Pleural Fluid Aerobic and Anaerobic Culture - Preliminary Pseudomonas aeruginosa Aspergillus fumigatus 02/01/19 14:05 Acid Fast Bacilli Smear - Final Pleural Fluid Acid Fast Bacilli Culture - Preliminary No Acid-Fast Bacilli Isolated - Report 1, Additional Report to Follow. 02/01/19 14:05 Fungal Smear - Final Pleural Fluid Fungal Culture - Preliminary Aspergillus fumigatus 02/01/19 00:05 Aerobic Blood Culture - Preliminary Blood No growth in Aerobic bottle after 48 hours. Anaerobic Blood Culture - Preliminary No growth in Anaerobic bottle after 48 hours. 02/01/19 00:26 Aerobic Blood Culture - Preliminary Blood No growth in Aerobic bottle after 48 hours. Anaerobic Blood Culture - Preliminary No growth in Anaerobic bottle after 48 hours. Electrocardiogram Date: 01/31/19 Findings: + NSR @ and + T wave inversion (anterior leads) Echocardiogram Date: 12/30/18 EF: 30-35% LV Function: dysfunctional RWMA: + hypokinetic (severe apical HK) Other Findings: + RVH (dilated RV) Valvular Disease: + no significant valvular disease elevated RVSP (30-40mmHg)
[2019-02-04] MEDS: MULTIVITAMIN TAB PO SCH (20:57)
--- NOTE | 2019-02-04 23:10 | Hospitalist Progress Note ---
Date of Service February 04, 2019 Assessment & Plan (1) Empyema, right: Admit to tele Vanco, Levofloxacin, and Aztreonam given in the ED Fluid was aspirated and confirmed an infection. Patient will continue on cefepime, flagyl. Patient also on levofloxacin. cultures show pseudomonas and aspergillus. Consulted thoracic surgery: pt had pigtial placed by radiology under CT guidance Follow daily labs. (2) Weakness: Secondary to #1 (3) COPD (chronic obstructive pulmonary disease): Continue home inhalers PRN albuterol nebs. (4) Severe protein-calorie malnutrition: Patient has BMI is 16.7; Patient has poor nutrition likely from history of alcoholism Discussed calorie intake with patient and his girlfriend Focus on high-protein foods -avoid fast food and processed foods DVT: lovenox. Subjective Patient is a 58 yo male who reports no new symptoms today. Review of Systems Review of Systems: Constitutional- no fever; no weight loss Eyes- no acute visual changes ENT- no sinus drainage; no pharyngitis Pulmonary- no cough, no wheezing, no change in shortness of breath Cardiac- no chest pain, no palpitations, no orthopnea, no dependent edema GI- no nausea, no vomiting, no diarrhea, no melena, no hematochezia - no dysuria, no hematuria Musculoskeletal- no arthralgias, no myalgias Derm- no rashes, no new skin lesions, no changing skin lesions Hematologic- no unusual bruising, no unusual bleeding Lymphatics- no adenopathy Endocrine- no polyuria or polydipsia; no heat or cold intolerance Neuro- no headaches, no focal neurologic symptoms Psych- no anxiety, no depression Physical Exam Physical Exam: Constitutional: WD/WN, vitals as above Eyes: PERRL, conjunctivae normal, anicteric sclerae ENMT: external ear and nose normal, oropharynx normal Neck: normal visual inspection Respiratory: normal respiratory effort, lungs clear to auscultation pig tail catheter noted on right upper anterior chest Cardiovascular: RRR, no murmur, no edema Gastrointestinal (Abdomen): normal bowel sounds, soft, nontender, no hepatosplenomegaly Musculoskeletal: no cyanosis or clubbing, extremities motor strength 5/5 Skin: no rashes, warm and dry Psychiatric: A+Ox3, euthymic affect Results & Data Vital Signs (Past 12 Hours) Vital Signs Temp Pulse Resp BP Pulse Ox 02/04/19 15:00 36.6 C 92 H 20 118/77 94 PG Care Time/CCT Total # of Minutes Spent Total Time Spent with Patient: Total time spent is greater than 50% in coordination of care (as documented) at patient's floor/unit and/or counseling patient:
--- NOTE | 2019-02-05 07:22 | XRay Report ---
XR chest 1V portable CLINICAL HISTORY: empyema dyspnea COMPARISON STUDY: 02/03/2019 FINDINGS: Progressive increasing density right pulmonary apex. Pigtail drainage catheter is unchanged in location. Left lung is clear. IMPRESSION: Progressive density/consolidative change right apex. The above report was generated using voice recognition software. It may contain grammatical, syntax or spelling errors. Electronically signed by: Maximilian Knox M.D. 02/05/2019 7:21 AM
[2019-02-05] MEDS: BUDESONIDE/FORMOTEROL FUMARATE 160/4.5 60 PUFFS/INHALER INH SCH ×2 (08:42→20:16)
[2019-02-05] MEDS: ENOXAPARIN INJ 40 MG/0.4 ML SYR SQ SCH (08:43)
[2019-02-05] MEDS: PROPRANOLOL HCL 10 MG TAB PO SCH ×2 (08:44→20:17)
[2019-02-05] MEDS: TIOTROPIUM BROMIDE 5 PUFF/90 MCG INH INH SCH (08:44)
[2019-02-05 09:02] LABS: Basophils # (auto) 0.07 K/uL (0-0.2); Basophils % (auto) 0.4 %; Eosinophils # (auto) 0.63 K/uL (0-0.5); Eosinophils % (auto) 3.9 %; Hematocrit (blood only) 36.3 % (42-52); Hemoglobin 12.1 g/dL (14.0-18.0); Immature Granulocytes # (auto) 0.27 K/uL (0.00-0.02); Immature Granulocytes % (auto) 1.7 %; Lymphocytes # (auto) 2.36 K/uL (1.2-3.4); Lymphocytes % (auto) 14.7 %; Mean Corpuscular Hemoglobin 31.4 pg (25-34); Mean Corpuscular Hgb Conc 33.3 g/dL (32-36); Mean Corpuscular Volume 94.3 fL (80-100); Mean Platelet Volume 8.9 fL (7.4-10.4); Monocytes # (auto) 1.27 K/uL (0.11-0.59); Monocytes % (auto) 7.9 %; Neutrophils # (auto) 11.49 K/uL (1.4-6.5); Neutrophils % (auto) 71.4 %; Platelet Count 519 K/uL (130-400); RDW Coefficient of Variation 15.4 % (11.5-14.5); RDW Standard Deviation 53.1 fL (36.4-46.3); Red Blood Count 3.85 M/uL (4.7-6.1); White Blood Count 16.09 K/uL (4.8-10.8)
--- NOTE | 2019-02-05 09:08 | Progress Note ---
DATE: 02/05/2019 Mr. Castillo was seen again today. I have concerns about Mr. Castillo. I do not think this patient is going to tolerate a right upper lobectomy in his current state. I have ordered another CT scan. It appears to me there has been such involvement of his right upper lobe that I do not think a simple decortication and wedge resection is going to heal. He is still draining purulent material from his pigtail catheter. I have ordered another CT scan. I want to see the infiltrative process in the rest of his right upper lobe. One option would be to exchange this pigtail catheter for a large chest tube and simply leave it open to air. The patient is not going to develop a pneumothorax; however, he has an air leak, which is going to present a problem. This way we would be able to allow him to be discharged to an extended care facility and that could be done at the bedside. We will simply exchange this pigtail catheter for a larger chest tube. I will see his CT scan and will discuss this further.
[2019-02-05] MEDS: FAMOTIDINE 20 MG TAB PO SCH ×2 (09:12→20:17)
[2019-02-05 09:36] LABS: BUN Creatinine Ratio 22.2 (10-20); Calcium 9.6 mg/dl (8.5-10.1); Creatinine Clr Calc Pharmacy 90.2 ml/min; Est GFR (African American) 127.6; Est GFR (Non-African American) 110.1; Potassium 4.1 mmol/L (3.5-5.1)
--- NOTE | 2019-02-05 09:59 | CT Scan Report ---
CT chest wo con CT DOSE: 235.45 mGycm HISTORY: Follow-up right upper lobe abscess TECHNIQUE: Multiaxial CT images of the chest were performed without contrast. A dose lowering techni que was utilized adhering to the principles of ALARA. COMPARISON: Chest CT 01/31/2019. FINDINGS: Interval placement of a percutaneous drainage catheter resulting in slight decrease in size in the 7.4 x 3.6 cm loculated air-fluid level within the right upper lung zone anteriorly. This appe ars to reside within the pleural space and favors an empyema. Small tract of gas extends into the rig ht anterior chest wall at the right second costochondral junction. This is unchanged. Small right ple ural effusion which is partially loculated within the right lung apex, unchanged. Persistent consolid ation right lung apex with multiple tiny air-fluid levels. This remains unchanged. Small amount of mu coid material within the mid trachea. Emphysema. Mild volume loss within the right hemithorax with mi ld right mediastinal shift. Focal consolidation within the right lower lobe posteriorly, unchanged. T his measures proximally 4.6 cm. Stable linear scarlike density within the left lung apex. Small focal density within the lingula is also similar and measures 1 cm. Small focus of consolidation within th e base of the left lower lobe, unchanged. No suspicious lytic or blastic osseous lesions. The visuali zed unenhanced liver, spleen, and adrenal glands are unremarkable. Normal esophagus. The heart is nor mal in size. Mild right paratracheal lymphadenopathy is again noted. Small left soft tissue density p osterior to the bronchus intermedius best seen on image 128. This is considered abnormal and raises t he possibility of a soft tissue mass. IMPRESSION: 1. Slight decrease in size in the loculated right upper chest empyema. Interval placement of a percut aneous drainage catheter which appears in good position. 2. Small partially loculated right pleural effusion, unchanged. 3. Consolidation and small air-fluid levels within the right lung apex, unchanged. 4. Emphysema. 5. Mild right hilar lymphadenopathy and abnormal soft tissue posterior to the bronchus intermedius is also unchanged. The soft tissue posterior to the bronchus intermedius is considered abnormal and echavarria ses the possibility of a soft tissue mass. Bronchoscopy recommended for further evaluation or chest C T follow-up to ensure resolution and to exclude an underlying malignancy.. 6. Additional findings as described above. Electronically signed by: Jr Tejada M.D. 02/05/2019 9:57 AM
--- NOTE | 2019-02-05 10:32 | Infectious Disease Progress Nt ---
Date of Service February 05, 2019 Assessment & Plan (1) Empyema: will change to levaquin as pseudomonas is sensitive, 21 days total. unclear significance of aspergillus, remains with effusion and drainage, will add voriconazole po as well. Subjective pt seen in followup, tolerating levaquin. cxr remains with effusion. chest tube in place, drainage brown fluid. cultures growing pseudomonas, now Asperigillus as well. blood cultures negative, denies f/c. no cp, sob, some cough, asking for expectorant. AFB culture negative to date. no pain at tube site. denies abd pain, no n/v/d Review of Systems Review of Systems: All systems reviewed & are unremarkable except as noted in HPI & below Physical Exam Constitutional: WD/WN, vitals as above Eyes: PERRL, conjunctivae normal, anicteric sclerae ENMT: external ear and nose normal, oropharynx normal Neck: normal visual inspection Respiratory: normal respiratory effort, lungs clear to auscultation Auscu ltation: + diminished lung sounds Cardiovascular: RRR, no murmur, no edema Gastrointestinal (Abdomen): normal bowel sounds, soft, nontender, no hepatosplenomegaly Musculoskeletal: no cyanosis or clubbing, extremities motor strength 5/5 Skin: no rashes, warm and dry Psychiatric: A+Ox3, euthymic affect Results & Data Vital Signs (Past 12 Hours) Vital Signs Temp Pulse Resp BP BP Pulse Ox 02/05/19 07:38 36.6 C 96 H 18 126/81 95 02/04/19 23:53 36.8 C 94 H 17 112/77 93 Laboratory Results Microbiology 02/01/19 14:05 Pleural Fluid Gram Stain - Final 02/01/19 14:05 Pleural Fluid Aerobic and Anaerobic Culture - Preliminary Pseudomonas aeruginosa Aspergillus fumigatus 02/01/19 14:05 Pleural Fluid Acid Fast Bacilli Smear - Final 02/01/19 14:05 Pleural Fluid Acid Fast Bacilli Culture - Preliminary No Acid-Fast Bacilli Isolated - Report 1, Additional Report to Follow. 02/01/19 14:05 Pleural Fluid Fungal Smear - Final 02/01/19 14:05 Pleural Fluid Fungal Culture - Preliminary Aspergillus fumigatus 02/01/19 00:05 Blood Aerobic Blood Culture - Preliminary No growth in Aerobic bottle after 48 hours. 02/01/19 00:05 Blood Anaerobic Blood Culture - Preliminary No growth in Anaerobic bottle after 48 hours. 02/01/19 00:26 Blood Aerobic Blood Culture - Preliminary No growth in Aerobic bottle after 48 hours. 02/01/19 00:26 Blood Anaerobic Blood Culture - Preliminary No growth in Anaerobic bottle after 48 hours. PG Care Time/CCT Total # of Minutes Spent Total Time Spent with Patient: Total time spent is greater than 50% in coordination of care (as documented) at patient's floor/unit and/or counseling patient:
[2019-02-05] MEDS: levoFLOXacin 500 MG TAB PO SCH (11:46)
[2019-02-05] MEDS: VORICONAZOLE 200 MG TABLET PO SCH ×2 (11:48→20:17)
--- NOTE | 2019-02-05 12:38 | Hospitalist Progress Note ---
Date of Service February 05, 2019 Assessment & Plan (1) Empyema, right: Pleural fluid cultures growing pseudomonas and aspergillus - continue Levaquin for 21 days total per ID, they also have added voriconazole po for aspergillus Consulted thoracic surgery - patient had pigtail placed by radiology under CT guidance 02/01, surgery considering chest tube as they do not feel Mr. Castillo would do well with a right upper lobectomy (2) Weakness: improving (3) COPD (chronic obstructive pulmonary disease): Continue home inhalers PRN albuterol nebs. (4) Severe protein-calorie malnutrition: Patient has BMI is 16.7; Patient has poor nutrition likely from history of alcoholism Boost and solar business developer consult (5) Cardiomyopathy: Most recent echo with EF 30-35% Appears euvolemic at this time Daily weights Does not appear to be on SIMON, is on propranolol - may want to consider adding SIMON once stabilized (6) DVT prophylaxis: DVT: lovenox. Subjective Mr. Castillo has no complaints. He denies pain or other discomfort. Review of Systems Review of Systems: All systems reviewed & are unremarkable except as noted in HPI & below Physical Exam Physical Exam: General: no distress, cachectic Eyes: normal inspection, PERLL Respiratory: chest non tender, clear to auscultation, normal breath sounds, no respiratory distress, no accessory muscle use Cardiac: regular rate and rhythm, no rub or gallop, no murmur, no edema, no jvd GI/: active bowel sounds, no abd pain or tenderness, soft, non distended Extremities: normal range of motion, normal strength, non tender Neuro/Psych: alert and oriented x 3, normal mood and affect Skin: normal color, dry Results & Data Vital Signs (Past 12 Hours) Vital Signs Temp Pulse Resp BP Pulse Ox 02/05/19 07:38 36.6 C 96 H 18 126/81 95 PG Care Time/CCT Total # of Minutes Spent Total Time Spent with Patient: Total time spent is greater than 50% in coordination of care (as documented) at patient's floor/unit and/or counseling patient:
[2019-02-05] MEDS: MULTIVITAMIN TAB PO SCH (20:16)
[2019-02-06 07:32] LABS: Hematocrit (blood only) 34.6 % (42-52); Hemoglobin 11.2 g/dL (14.0-18.0); Mean Corpuscular Hemoglobin 30.4 pg (25-34); Mean Corpuscular Hgb Conc 32.4 g/dL (32-36); Mean Corpuscular Volume 93.8 fL (80-100); Mean Platelet Volume 8.9 fL (7.4-10.4); Platelet Count 444 K/uL (130-400); RDW Coefficient of Variation 15.5 % (11.5-14.5); RDW Standard Deviation 53.2 fL (36.4-46.3); Red Blood Count 3.69 M/uL (4.7-6.1); White Blood Count 12.22 K/uL (4.8-10.8)
[2019-02-06] MEDS ORDERED: LIDOCAINE HCL 2% (LOCAL) INJ 50 ML VIAL ONE (07:53)
[2019-02-06] MEDS: FAMOTIDINE 20 MG TAB PO SCH ×2 (07:57→21:03)
[2019-02-06] MEDS: PROPRANOLOL HCL 10 MG TAB PO SCH ×2 (07:57→21:01)
[2019-02-06] MEDS: VORICONAZOLE 200 MG TABLET PO SCH ×2 (07:58→21:03)
[2019-02-06] MEDS: TIOTROPIUM BROMIDE 5 PUFF/90 MCG INH INH SCH (07:58)
[2019-02-06] MEDS: ENOXAPARIN INJ 40 MG/0.4 ML SYR SQ SCH (07:58)
[2019-02-06 07:59] LABS: BUN Creatinine Ratio 30.5 (10-20); Calcium 9.2 mg/dl (8.5-10.1); Est GFR (Non-African American) 123.4
[2019-02-06] MEDS: BUDESONIDE/FORMOTEROL FUMARATE 160/4.5 60 PUFFS/INHALER INH SCH ×2 (07:59→21:03)
[2019-02-06] MEDS: guaiFENesin 600 MG TABCR PO SCH ×2 (09:12→21:01)
[2019-02-06] MEDS: levoFLOXacin 500 MG TAB PO SCH (10:07)
--- NOTE | 2019-02-06 12:22 | Progress Note ---
DATE: 02/06/2019 Mr. Castillo was seen today on 02/06/2019. I was not pleased with the CT scan yesterday. We have not adequately drained this with the pigtail catheter. There were few options here. I do not believe this patient is a candidate for surgery at this point. My hope is that he does not drink alcohol and gains weight and his protein stores improve, I would consider surgery. His surgery at this point would require a right upper lobectomy. I would like to give him more time with antibiotics. Having said that, we need to adequately drain this area in his right apex. I am going to insert a large chest tube. We do not need to keep it attached to a Pleur-Evac although we will probably do that initially. This will act as a wick and allow this abscess cavity to close. He would not do well with a major resection at this point. We could hopefully send him to the extended care facility with the tube in place and get him nutritionally replete and then consider a possible right upper lobectomy if he does not respond to antibiotics.
[2019-02-06] MEDS ORDERED: MoRPHine SULFATE 10 MG/ML CARP/VIAL ONE (13:13)
[2019-02-06] MEDS ORDERED: LORazepam 1 MG/2 ML VIAL IV ONE (13:30)
[2019-02-06] MEDS ORDERED: OXYCODONE HCL IR 5 MG TAB (IMMEDIATE RELEASE) PO PRN (13:38)
[2019-02-06] MEDS: ACETAMINOPHEN 325 MG TAB PO SCH ×2 (13:56→21:01)
--- NOTE | 2019-02-06 13:57 | Infectious Disease Progress Nt ---
Date of Service February 06, 2019 Assessment & Plan (1) Empyema: will change to levaquin as pseudomonas is sensitive, 21 days total. unclear significance of aspergillus, remains with effusion and drainage, will add voriconazole po as well. Subjective repeat ct chest still with loculated effusion, also soft tissue mass in bronchus, ? malignancy. still with chest tube, surgery following ? larger tube vs OR. remains on levaquin and voriconazole, tolerating well. afebrile. wbc 12 Results & Data Vital Signs (Past 12 Hours) Vital Signs Temp Pulse Resp BP Pulse Ox 02/06/19 08:04 36.8 C 96 H 20 102/75 95 Laboratory Results Microbiology 02/01/19 14:05 Pleural Fluid Gram Stain - Final 02/01/19 14:05 Pleural Fluid Aerobic and Anaerobic Culture - Final Pseudomonas aeruginosa Aspergillus fumigatus 02/01/19 00:05 Blood Aerobic Blood Culture - Final No growth in Aerobic bottle after 5 days. 02/01/19 00:05 Blood Anaerobic Blood Culture - Final No growth in Anaerobic bottle after 5 days. 02/01/19 00:26 Blood Aerobic Blood Culture - Final No growth in Aerobic bottle after 5 days. 02/01/19 00:26 Blood Anaerobic Blood Culture - Final No growth in Anaerobic bottle after 5 days. 02/01/19 14:05 Pleural Fluid Acid Fast Bacilli Smear - Final 02/01/19 14:05 Pleural Fluid Acid Fast Bacilli Culture - Preliminary No Acid-Fast Bacilli Isolated - Report 1, Additional Report to Follow. 02/01/19 14:05 Pleural Fluid Fungal Smear - Final 02/01/19 14:05 Pleural Fluid Fungal Culture - Preliminary Aspergillus fumigatus PG Care Time/CCT Total # of Minutes Spent Total Time Spent with Patient: Total time spent is greater than 50% in coordination of care (as documented) at patient's floor/unit and/or counseling patient:
--- NOTE | 2019-02-06 14:17 | XRay Report ---
XR chest 1V portable HISTORY: chest tube placement COMPARISON: Chest 02/05/2019. FINDINGS: Interval replacement of the right-sided pigtail percutaneous drainage catheter with a chest tube. This terminates in the right upper lung zone. Persistent volume loss within the right hemithor ax with consolidation within the right upper lobe. This is similar to the prior study. The heart is n ormal in size. The left lung is clear. No pneumothorax. IMPRESSION: Interval replacement of the right-sided percutaneous drainage catheter with a chest tube which termin ates in the right upper lung zone. Persistent consolidation within the right upper lobe. Electronically signed by: Jr Tejada M.D. 02/06/2019 2:16 PM
--- NOTE | 2019-02-06 14:47 | Operative Report ---
DATE OF OPERATION: 02/06/2019 PREOPERATIVE DIAGNOSIS: Empyema cavity right upper apex with lung abscess. POSTOPERATIVE DIAGNOSIS: Empyema cavity right upper apex with lung abscess. PROCEDURE: Insertion of 32-Israeli right angle chest tube into right upper pleural empyema cavity. SURGEON: Oswaldo Forrest MD ASSISTANT DIRECTOR OF SECURITY: JUDITH Soriano. ANESTHESIA: Local with sedation and intravenous narcotics. SPECIFICS OF PROCEDURE AND FINDINGS: This is a 58-year-old who is a heavy user of alcohol who has presented with a terrible pneumonia last month and had a pleural effusion. He had a chest tube placed and had a MIST-2 protocol and appeared to get better and went to an extended care facility, only come back with hypoxemia. Much of the infiltrative process from his pneumonia had improved, but he had essentially destruction of the right upper lobe. There is an abscess cavity which was drained with a pigtail catheter, simply was not draining it. This patient has an albumin of 2.2 and weighs 105 pounds and is in no condition for major surgery. Judging from his x-ray, he may well need a right upper lobectomy, but at this point, I felt the better part of valor would be to insert a larger tube. DESCRIPTION OF PROCEDURE: After appropriate consent has been obtained and we had a long discussion about this 2 days running, we inserted the chest tube. At the patient's bedside, his pigtail catheter was cut and removed. We then prepped and draped this in the usual sterile fashion with Betadine x3. After being draped, we called a timeout. We then used 1% Xylocaine with epinephrine to anesthetize the skin and subcutaneous tissues liberally. The insertion point of the pigtail catheter was directly into the cavity, so I simply followed this down. He is a very thin individual and we had very little tissue to go through to reach the pleural cavity. I went all the way down and I could get my finger between the ribs. The pleura was thickened but we opened this up and then I took a 32-Israeli right angle chest tube that went directly into this posteriorly. I then sutured this in place with heavy silk suture. We did sedate him with parenteral Ativan as well as 2 mg of morphine intravenously. He actually tolerated this quite well. He had a minimal amount of bleeding. We did drain some fluid. He has an intermittent small air leak. He tolerated it quite well. A chest x-ray is pending as we speak. Sterile dressings with antimicrobial dressings were applied. He tolerated well. I attest to the content of the Intraoperative Record and any orders documented therein. Any exceptions are noted below. SAJAN
--- NOTE | 2019-02-06 18:18 | Hospitalist Progress Note ---
Date of Service February 06, 2019 Assessment & Plan (1) Empyema, right: Pleural fluid cultures growing pseudomonas and aspergillus - continue Levaquin for 21 days total per ID, they also have added voriconazole po for aspergillus Consulted thoracic surgery - patient had pigtail placed by radiology under CT guidance 02/01, 02/06 pigtail removed and chest tube placed by thoracic surgery (2) Weakness: improving (3) COPD (chronic obstructive pulmonary disease): Continue home inhalers PRN albuterol nebs. 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 Subjective Mr. Castillo has no complaints. Review of Systems Review of Systems: All systems reviewed & are unremarkable except as noted in HPI & below Physical Exam Physical Exam: General: no distress Eyes: normal inspection, PERLL Respiratory: chest non tender, clear to auscultation, normal breath sounds, no respiratory distress, no accessory muscle use Cardiac: regular rate and rhythm, no rub or gallop, no murmur, no edema, no jvd GI/: active bowel sounds, no abd pain or tenderness, soft, non distended Extremities: normal range of motion, normal strength, non tender Neuro/Psych: alert and oriented x 3, normal mood and affect Skin: normal color, dry Results & Data Vital Signs (Past 12 Hours) Vital Signs Temp Pulse Resp BP BP Pulse Ox 02/06/19 16:13 36.6 C 72 18 115/74 96 02/06/19 08:04 36.8 C 96 H 20 102/75 95 PG Care Time/CCT Total # of Minutes Spent Total Time Spent with Patient: Total time spent is greater than 50% in coordination of care (as documented) at patient's floor/unit and/or counseling patient:
[2019-02-06] MEDS: MULTIVITAMIN TAB PO SCH (21:01)
[2019-02-07] MEDS: ACETAMINOPHEN 325 MG TAB PO SCH ×4 (01:53→20:55)
[2019-02-07 07:42] LABS: Hematocrit (blood only) 36.7 % (42-52); Hemoglobin 11.7 g/dL (14.0-18.0); Mean Corpuscular Hemoglobin 30.2 pg (25-34); Mean Corpuscular Hgb Conc 31.9 g/dL (32-36); Mean Corpuscular Volume 94.8 fL (80-100); Mean Platelet Volume 9.1 fL (7.4-10.4); Platelet Count 460 K/uL (130-400); RDW Coefficient of Variation 15.7 % (11.5-14.5); RDW Standard Deviation 54.8 fL (36.4-46.3); Red Blood Count 3.87 M/uL (4.7-6.1); White Blood Count 11.07 K/uL (4.8-10.8)
[2019-02-07 08:14] LABS: BUN Creatinine Ratio 27.7 (10-20); Calcium 9.2 mg/dl (8.5-10.1); Creatinine Clr Calc Pharmacy 101.7 ml/min; Est GFR (African American) 134.1; Est GFR (Non-African American) 115.7; Potassium 4.8 mmol/L (3.5-5.1)
--- NOTE | 2019-02-07 08:49 | XRay Report ---
XR chest 2V routine CLINICAL HISTORY: 58 years-old Male presenting with empyema. TECHNIQUE: PA and lateral views of the chest were obtained. COMPARISON: 02/06/2019. FINDINGS: Large bore right pleural drain remains position at the paramediastinal right upper lung. The patient is slightly JENIFER rotated. Allowing for this, cardiomediastinal silhouette normal. Mildly low lung volu me on the right in comparison to the left. The left lung is mildly hyperinflated. Left lung and pleur al space clear. Dense opacity in the right upper lung as on prior exam. Persistent loculated appearin g small right apical pneumothorax with a fluid level indicating hydropneumothorax. Suspected osteopen ia. Upper abdomen normal. IMPRESSION: 1. Small right apical hydropneumothorax with a right pleural drain in place. No significant change f rom prior. 2. Associated dense opacity in the right upper lung, which may represent pneumonia. 3. Hyperinflated left lung could consistent with underlying emphysema. Electronically signed by: Cameron Romero M.D. 02/07/2019 8:47 AM
[2019-02-07] MEDS: ENOXAPARIN INJ 40 MG/0.4 ML SYR SQ SCH (09:04)
[2019-02-07] MEDS: guaiFENesin 600 MG TABCR PO SCH ×2 (09:05→20:37)
[2019-02-07] MEDS: VORICONAZOLE 200 MG TABLET PO SCH ×2 (09:06→20:38)
[2019-02-07] MEDS: FAMOTIDINE 20 MG TAB PO SCH ×2 (09:06→22:13)
[2019-02-07] MEDS: BUDESONIDE/FORMOTEROL FUMARATE 160/4.5 60 PUFFS/INHALER INH SCH ×2 (09:06→20:39)
[2019-02-07] MEDS: PROPRANOLOL HCL 10 MG TAB PO SCH ×2 (09:07→20:35)
--- NOTE | 2019-02-07 09:18 | Infectious Disease Progress Nt ---
Date of Service February 07, 2019 Assessment & Plan (1) Empyema: will continue levaquin as pseudomonas is sensitive, 21 days total. unclear significance of aspergillus, remains with effusion and drainage, will add voriconazole po as well. s/p chest tube to facilitate drainage. follow imaging. Subjective pt s/p chest tube yesterday, pigtail cath removed. wbc decreased to 11. remains afebrile. creat 0.5. Remains on levaquin and voriconazole, tolerating well. Results & Data Vital Signs (Past 12 Hours) Vital Signs Temp Pulse Resp BP BP Pulse Ox 02/07/19 08:20 36.6 C 74 18 117/72 95 02/07/19 03:10 36.5 C 81 16 109/67 95 02/06/19 22:55 36.5 C 84 16 117/72 96 Laboratory Results Microbiology 02/01/19 14:05 Pleural Fluid Gram Stain - Final 02/01/19 14:05 Pleural Fluid Aerobic and Anaerobic Culture - Final Pseudomonas aeruginosa Aspergillus fumigatus 02/01/19 00:05 Blood Aerobic Blood Culture - Final No growth in Aerobic bottle after 5 days. 02/01/19 00:05 Blood Anaerobic Blood Culture - Final No growth in Anaerobic bottle after 5 days. 02/01/19 00:26 Blood Aerobic Blood Culture - Final No growth in Aerobic bottle after 5 days. 02/01/19 00:26 Blood Anaerobic Blood Culture - Final No growth in Anaerobic bottle after 5 days. 02/01/19 14:05 Pleural Fluid Acid Fast Bacilli Smear - Final 02/01/19 14:05 Pleural Fluid Acid Fast Bacilli Culture - Preliminary No Acid-Fast Bacilli Isolated - Report 1, Additional Report to Follow. 02/01/19 14:05 Pleural Fluid Fungal Smear - Final 02/01/19 14:05 Pleural Fluid Fungal Culture - Preliminary Aspergillus fumigatus PG Care Time/CCT Total # of Minutes Spent Total Time Spent with Patient: Total time spent is greater than 50% in coordination of care (as documented) at patient's floor/unit and/or counseling patient:
[2019-02-07] MEDS: TIOTROPIUM BROMIDE 5 PUFF/90 MCG INH INH SCH (09:55)
[2019-02-07] MEDS: levoFLOXacin 500 MG TAB PO SCH (11:50)
--- NOTE | 2019-02-07 15:50 | Hospitalist Progress Note ---
Date of Service February 07, 2019 Assessment & Plan (1) Empyema, right: Pleural fluid cultures growing pseudomonas and aspergillus - continue Levaquin for 21 days total per ID, they also have added voriconazole po for aspergillus Consulted thoracic surgery - patient had pigtail placed by radiology under CT guidance 02/01, 02/06 pigtail removed and chest tube placed by thoracic surgery 02/06 (2) Weakness: improving (3) COPD (chronic obstructive pulmonary disease): Continue home inhalers PRN albuterol nebs. 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 Subjective Chest tube draining bloody drainage. No pain. Coughing more, productive of yellow sputum Review of Systems Review of Systems: All systems reviewed & are unremarkable except as noted in HPI & below Physical Exam Physical Exam: General: no distress Eyes: normal inspection, PERLL Respiratory: chest non tender, clear to auscultation, normal breath sounds, no respiratory distress, no accessory muscle use Cardiac: regular rate and rhythm, no rub or gallop, no murmur, no edema, no jvd GI/: active bowel sounds, no abd pain or tenderness, soft, non distended Extremities: normal range of motion, normal strength, non tender Neuro/Psych: alert and oriented x 3, normal mood and affect Skin: normal color, dry Results & Data Vital Signs (Past 12 Hours) Vital Signs Temp Pulse Resp BP Pulse Ox 02/07/19 08:20 36.6 C 74 18 117/72 95 PG Care Time/CCT Total # of Minutes Spent Total Time Spent with Patient: Total time spent is greater than 50% in coordination of care (as documented) at patient's floor/unit and/or counseling patient:
--- NOTE | 2019-02-07 19:05 | Progress Note ---
DATE: 02/07/2019 Mr. Castillo was seen today. I think he looks better. He is draining just serous fluid now. He had some bloody fluid overnight. He only has about 350-400 total. He does not have an air leak. In addition, I do not agree with the radiology report. I believe this patient has improved and has better aeration. I think the opacification we see is intraparenchymal. This patient needs a long course of antibiotics. At this point, I would simply plan on leaving this tube in for a long period of time. As he has no air leak I would like to keep him on suction for another day or two and then check a CT scan. I may just cut the chest tube and leave it in place so that there is a wick for drainage. I do not think this patient's lung will collapse as it is quite stuck. I would like to reiterate what I said earlier on this patient. He is not a candidate for lobectomy which is what he would require now. My hope is that he responds to long-term antibiotics and the infiltrative pattern in his right upper lobe improves. If it does not, we will probably be forced to offer him a right upper lobectomy. SAJAN
[2019-02-07] MEDS: MULTIVITAMIN TAB PO SCH (20:37)
[2019-02-08] MEDS: ACETAMINOPHEN 325 MG TAB PO SCH ×4 (01:40→20:34)
--- NOTE | 2019-02-08 07:30 | XRay Report ---
XR chest 1V portable CLINICAL HISTORY: empyema tube position COMPARISON STUDY: 02/07/2019 FINDINGS: Slight increase in density right pulmonary apex. Large caliber drainage catheter is unchang ed. Left lung remains clear. IMPRESSION: Slight increase in density right pulmonary apex. Unchanged position of a right apical dr bond catheter. The above report was generated using voice recognition software. It may contain grammatical, syntax or spelling errors. Electronically signed by: Maximilian Knox M.D. 02/08/2019 7:29 AM
[2019-02-08] MEDS ORDERED: PNEUMOCOCCAL ADMINISTRATION CHARGE ONE (08:00)
[2019-02-08] MEDS ORDERED: PNEUMOCOCCAL POLYSACCHARIDES 25 MCG/0.5 ML VIAL/SYR IM ONE (08:00)
[2019-02-08 08:01] LABS: BUN Creatinine Ratio 17.9 (10-20); Calcium 8.5 mg/dl (8.5-10.1); Creatinine Clr Calc Pharmacy 107.5 ml/min; Est GFR (African American) 137.2; Est GFR (Non-African American) 118.4; Potassium 3.9 mmol/L (3.5-5.1)
[2019-02-08] MEDS: TIOTROPIUM BROMIDE 5 PUFF/90 MCG INH INH SCH (08:39)
[2019-02-08 08:40] LABS: Mean Corpuscular Hemoglobin 30.8 pg (25-34); Mean Corpuscular Hgb Conc 32.4 g/dL (32-36); Mean Corpuscular Volume 95.2 fL (80-100); Platelet Count 479 K/uL (130-400); RDW Coefficient of Variation 15.8 % (11.5-14.5); RDW Standard Deviation 54.4 fL (36.4-46.3); Red Blood Count 3.57 M/uL (4.7-6.1); White Blood Count 12.51 K/uL (4.8-10.8)
[2019-02-08] MEDS: BUDESONIDE/FORMOTEROL FUMARATE 160/4.5 60 PUFFS/INHALER INH SCH ×2 (08:40→20:38)
[2019-02-08] MEDS: FAMOTIDINE 20 MG TAB PO SCH ×2 (08:40→20:36)
[2019-02-08] MEDS: VORICONAZOLE 200 MG TABLET PO SCH ×2 (08:41→20:36)
[2019-02-08] MEDS: guaiFENesin 600 MG TABCR PO SCH ×2 (08:41→20:34)
[2019-02-08] MEDS: PROPRANOLOL HCL 10 MG TAB PO SCH ×2 (08:41→20:35)
[2019-02-08] MEDS: ENOXAPARIN INJ 40 MG/0.4 ML SYR SQ SCH (08:42)
--- NOTE | 2019-02-08 10:01 | Progress Note ---
DATE: 02/08/2019 The patient was seen today. His cough is better. The patient is a bit of a mess, however. He is markedly malnourished and weighs about 105 pounds. He is draining very little from his chest tube. His white count is 12,510 with hemoglobin of 11. His electrolytes look okay. This patient needs rehab. He also needs to increase his caloric intake and his protein stores. We will get him up moving more. I am going to check a CT scan tomorrow. It is my feeling we can probably cut this tube and leave it in place and act as a drain. My hope is that he would respond to long-term antibiotics with clearing of some of this infiltrative process; however, I have explained to him that he may have a necrotic process in his right upper lobe and he may well require a lobectomy. I simply do not think he is ready for that at this point.
[2019-02-08] MEDS: levoFLOXacin 500 MG TAB PO SCH (10:57)
--- NOTE | 2019-02-08 18:46 | Hospitalist Progress Note ---
Date of Service February 08, 2019 Assessment & Plan (1) Empyema, right: Pleural fluid cultures growing pseudomonas and aspergillus - continue Levaquin for 21 days total per ID, they also have added voriconazole po for aspergillus Consulted thoracic surgery - patient had pigtail placed by radiology under CT guidance 02/01, 02/06 pigtail removed and chest tube placed by thoracic surgery 02/06 (2) Weakness: improving PT/OT (3) COPD (chronic obstructive pulmonary disease): Continue home inhalers PRN albuterol nebs. 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 Dispo: PT/OT evals for placement, came from [facility] Subjective Mr. Castillo is coughing a little less today. Chest tube drainage is becoming more serous. No other complaints Review of Systems Review of Systems: All systems reviewed & are unremarkable except as noted in HPI & below Physical Exam Physical Exam: General: no distress Eyes: normal inspection, PERLL Respiratory: chest non tender, clear to auscultation, normal breath sounds, no respiratory distress, no accessory muscle use Cardiac: regular rate and rhythm, no rub or gallop, no murmur, no edema, no jvd GI/: active bowel sounds, no abd pain or tenderness, soft, non distended Extremities: normal range of motion, normal strength, non tender Neuro/Psych: alert and oriented x 3, normal mood and affect Skin: normal color, dry Results & Data Vital Signs (Past 12 Hours) Vital Signs Temp Pulse Pulse Resp BP Pulse Ox 02/08/19 15:14 36.5 C 98 H 16 106/72 96 02/08/19 11:14 36.8 C 92 H 18 110/80 97 02/08/19 07:17 37 C 84 18 130/80 97 PG Care Time/CCT Total # of Minutes Spent Total Time Spent with Patient: Total time spent is greater than 50% in coordination of care (as documented) at patient's floor/unit and/or counseling patient:
[2019-02-08] MEDS: MULTIVITAMIN TAB PO SCH (20:35)
[2019-02-09] MEDS: ACETAMINOPHEN 325 MG TAB PO SCH ×4 (01:52→20:03)
[2019-02-09 07:01] LABS: Hematocrit (blood only) 37.1 % (42-52); Mean Corpuscular Hemoglobin 30.7 pg (25-34); Mean Corpuscular Hgb Conc 32.3 g/dL (32-36); Mean Corpuscular Volume 94.9 fL (80-100); Mean Platelet Volume 8.9 fL (7.4-10.4); Platelet Count 492 K/uL (130-400); RDW Coefficient of Variation 15.8 % (11.5-14.5); RDW Standard Deviation 55.1 fL (36.4-46.3); Red Blood Count 3.91 M/uL (4.7-6.1); White Blood Count 13.15 K/uL (4.8-10.8)
[2019-02-09] MEDS: BUDESONIDE/FORMOTEROL FUMARATE 160/4.5 60 PUFFS/INHALER INH SCH ×2 (08:38→20:04)
[2019-02-09] MEDS: TIOTROPIUM BROMIDE 5 PUFF/90 MCG INH INH SCH (08:39)
[2019-02-09] MEDS: VORICONAZOLE 200 MG TABLET PO SCH ×2 (08:40→20:04)
[2019-02-09] MEDS: FAMOTIDINE 20 MG TAB PO SCH ×2 (08:40→20:04)
[2019-02-09] MEDS: guaiFENesin 600 MG TABCR PO SCH ×2 (08:41→20:04)
[2019-02-09] MEDS: PROPRANOLOL HCL 10 MG TAB PO SCH ×2 (08:41→20:06)
[2019-02-09] MEDS: ENOXAPARIN INJ 40 MG/0.4 ML SYR SQ SCH (08:42)
--- NOTE | 2019-02-09 09:35 | CT Scan Report ---
CT chest wo con CLINICAL HISTORY: empyema COMPARISON STUDY: 02/05/2019 CT DOSE: 227.07 mGy.cm TECHNIQUE: CT of the thorax was performed from the thoracic inlet to the lung bases. Images are revi ewed in the axial, sagittal, and coronal planes. IV contrast was not administered for this examinatio n. A dose lowering technique was utilized adhering to the principles of ALARA. FINDINGS: Thyroid: Imaged portions of the thyroid gland are normal in appearance. Thoracic aorta: The ascending thoracic aorta measures 35 mm. Heart: The heart is normal in size. There is no significant pericardial effusion. There are coronary artery calcifications. Lungs and pleural spaces: The lungs and pleural spaces are clear. There is a right-sided hydropneumot horax. There is a large bore chest tube within the right upper lobe. The tube has at least a partial intrapulmonary course. The tube abuts and deforms the superior vena cava has a cavus position between the aortic arch and chest tube. There is extensive right upper lobe pulmonary consolidation. There i s a residual 6.5 cm fluid collection within the right lung apex, empyema versus lung abscess. The tub e passes medial to this fluid collection. Also evident is right lower lobe consolidation. There is a small right pleural effusion at the right lung base. There is severe underlying emphysema. Mediastinum: There is mild mediastinal lymphadenopathy, likely reactive. The superior vena cava is co mpressed between the chest tube and aorta. Radhika: Mildly enlarged right hilar lymph nodes are suspected. Evaluation is difficult due to the absen ce of intravenous contrast Axilla: There is no evidence of pathologic axillary lymphadenopathy. Upper abdomen: Partially visualized upper abdominal viscera is within normal limits. Skeletal structures: There are destructive changes involving the right second rib. IMPRESSION: 1. Extensive right upper lobe pulmonary consolidation. In addition there is a 6.5 cm fluid collection within the right lung apex, empyema versus lung abscess 2. Large bore right sided chest tube which passes medial to the above-mentioned fluid collection. The tube has intraparenchymal component. The tube abuts the superior vena cava and results in mild SVC c ompression 3. Right lower lobe consolidation association with a small right pleural effusion at the right lung b ase 4. 32 mm right apical pneumothorax 5. Adenopathy, likely reactive 6. Destructive changes involving the right second rib Electronically signed by: Sung Moses M.D. 02/09/2019 9:34 AM
[2019-02-09] MEDS: levoFLOXacin 500 MG TAB PO SCH (12:49)
--- NOTE | 2019-02-09 17:06 | Procedure Note ---
Procedure Note Date of Service February 09, 2019 Ct tube pulled back approximately 1 inch and resecured using 2 silk sutures placed through exisiting suture loop in skin. Sterile dressing reapplied. Coding
--- NOTE | 2019-02-09 17:53 | Progress Note ---
DATE: 02/09/2019 Mr. Castillo actually looks pretty good. He is not draining much from his chest tube. I ordered a CT scan and looked at it and I am still a bit perplexed that he has this pocket of fluid. I am going to pull the chest tube back a bit in the hopes it drains a bit better. We are going to see how he does over the weekend. I reviewed his films with Dr. Lyle Arredondo. We may want to put a pigtail catheter in his remaining pocket, but at this point, I would like to see his lung improved. I think he has less of an infiltrate and quite frankly. If we were to do anything, I would probably do an anterior segmentectomy. We will have to see how he looks over the next several days. I am still loathe to operate on this man. SAJAN
--- NOTE | 2019-02-09 18:14 | Hospitalist Progress Note ---
Date of Service February 09, 2019 Assessment & Plan (1) Empyema, right: Pleural fluid cultures growing pseudomonas and aspergillus - continue Levaquin for 21 days total per ID, continue voriconazole po for aspergillus Consulted thoracic surgery - patient had pigtail placed by radiology under CT guidance 02/01, 02/06 pigtail removed and chest tube placed by thoracic surgery 02/06 02/09 - chest tube repositioned by surgery and they will monitor his progress over the weekend (2) Weakness: improving PT/OT (3) COPD (chronic obstructive pulmonary disease): stable, no exacerbation Continue home inhalers PRN albuterol nebs. 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 Dispo: PT/OT evals for placement, came from [facility] however he would like to look into other places with case management Subjective Mr. Castillo continues to have a cough productive of yellow sputum. Otherwise n o complaints Review of Systems Review of Systems: All systems reviewed & are unremarkable except as noted in HPI & below Physical Exam Physical Exam: General: no distress Eyes: normal inspection, PERLL Respiratory: chest non tender, clear to auscultation, normal breath sounds, no respiratory distress, no accessory muscle use Cardiac: regular rate and rhythm, no rub or gallop, no murmur, no edema, no jvd GI/: active bowel sounds, no abd pain or tenderness, soft, non distended Extremities: normal range of motion, normal strength, non tender Neuro/Psych: alert and oriented x 3, normal mood and affect Skin: normal color, dry Results & Data Vital Signs (Past 12 Hours) Vital Signs Temp Pulse Resp BP Pulse Ox 02/09/19 07:57 36.7 C 80 16 121/81 97 PG Care Time/CCT Total # of Minutes Spent Total Time Spent with Patient: Total time spent is greater than 50% in coordination of care (as documented) at patient's floor/unit and/or counseling patient:
[2019-02-09] MEDS: MULTIVITAMIN TAB PO SCH (20:04)
[2019-02-10] MEDS: ACETAMINOPHEN 325 MG TAB PO SCH ×4 (00:44→19:44)
[2019-02-10 07:29] LABS: Creatinine Clr Calc Pharmacy 103.5 ml/min; Est GFR (African American) 135.1; Est GFR (Non-African American) 116.5
--- NOTE | 2019-02-10 07:32 | XRay Report ---
XR chest 1V portable CLINICAL HISTORY: empyema COMPARISON STUDY: Chest CT February 09, 2019. FINDINGS: Right-sided chest tube is in place. Persistent right apical consolidation is noted. A small right apical pneumothorax is better depicted on chest CT. There is mild right lower lung opacity. Le ft lung is clear. Emphysema is present. Appearance of the chest is unchanged. IMPRESSION: No change in appearance of the chest. Right chest tube in place. Persistent right apical consolidation and right lower lung airspace opacity with a small right pneumothorax. Electronically signed by: Randolph Arredondo M.D. 02/10/2019 7:31 AM
--- NOTE | 2019-02-10 08:41 | Progress Note ---
DATE: 02/10/2019 Mr. Castillo was seen today on 02/10/2019. He remains of course emaciated. However, he is eating well. He is also ambulating in the hallway. He is on room air with 97% saturations. We pulled his chest tube back a bit yesterday and I looked at his film today and I reviewed it with Dr. Lyle Arredondo. I think this is better. We drained some fluid also. We drained about 170 mL after this was done. At this point, I am going to continue this tube. I am hopeful that this is all we need. I feel better now that we have this drained. I reviewed the films again with Dr. Arredondo. We could perform an anterior segmentectomy if necessary; however, I am hopeful we can avoid that. We will continue the antibiotics.
[2019-02-10] MEDS: BUDESONIDE/FORMOTEROL FUMARATE 160/4.5 60 PUFFS/INHALER INH SCH ×2 (09:17→20:21)
[2019-02-10] MEDS: FAMOTIDINE 20 MG TAB PO SCH ×2 (09:17→20:20)
[2019-02-10] MEDS: guaiFENesin 600 MG TABCR PO SCH ×2 (09:17→20:19)
[2019-02-10] MEDS: ENOXAPARIN INJ 40 MG/0.4 ML SYR SQ SCH (09:18)
[2019-02-10] MEDS: VORICONAZOLE 200 MG TABLET PO SCH ×2 (09:18→20:20)
[2019-02-10] MEDS: PROPRANOLOL HCL 10 MG TAB PO SCH ×2 (09:19→20:20)
[2019-02-10] MEDS: TIOTROPIUM BROMIDE 5 PUFF/90 MCG INH INH SCH (09:24)
[2019-02-10] MEDS: levoFLOXacin 500 MG TAB PO SCH (10:08)
--- NOTE | 2019-02-10 13:27 | Hospitalist Progress Note ---
Date of Service February 10, 2019 Assessment & Plan (1) Empyema, right: Pleural fluid cultures growing pseudomonas and aspergillus - continue Levaquin for 21 days total per ID, continue voriconazole po for aspergillus Consulted thoracic surgery - patient had pigtail placed by radiology under CT guidance 02/01, 02/06 pigtail removed and chest tube placed by thoracic surgery 02/06 02/09 - chest tube repositioned by surgery and they will monitor his progress over the weekend - per surgery, patient is not a good candidate for resection given nutritional status (2) Weakness: improving PT/OT (3) COPD (chronic obstructive pulmonary disease): stable, no exacerbation Continue home inhalers PRN albuterol nebs. 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 Dispo: PT/OT evals for placement, came from [facility] and likely will return there at discharge Subjective Mr. Castillo has no new complaints, feels about the same, continues to cough productive of sputum though he says sputum was initially foul tasting and that has improved. Review of Systems Review of Systems: All systems reviewed & are unremarkable except as noted in HPI & below Physical Exam Physical Exam: General: no distress Eyes: normal inspection, PERLL Respiratory: chest non tender, clear to auscultation, normal breath sounds, no respiratory distress, no accessory muscle use Cardiac: regular rate and rhythm, no rub or gallop, no murmur, no edema, no jvd GI/: active bowel sounds, no abd pain or tenderness, soft, non distended Extremities: normal range of motion, normal strength, non tender Neuro/Psych: alert and oriented x 3, normal mood and affect Skin: normal color, dry Results & Data Vital Signs (Past 12 Hours) Vital Signs Temp Pulse Resp BP Pulse Ox 02/10/19 07:19 36.7 C 102 H 16 123/74 97 PG Care Time/CCT Total # of Minutes Spent Total Time Spent with Patient: Total time spent is greater than 50% in coordination of care (as documented) at patient's floor/unit and/or counseling patient:
[2019-02-10] MEDS: MULTIVITAMIN TAB PO SCH (20:20)
[2019-02-11] MEDS: ACETAMINOPHEN 325 MG TAB PO SCH ×4 (02:55→19:38)
[2019-02-11 06:06] LABS: Hemoglobin 10.8 g/dL (14.0-18.0); Mean Corpuscular Hemoglobin 30.2 pg (25-34); Mean Corpuscular Hgb Conc 31.8 g/dL (32-36); Mean Platelet Volume 8.7 fL (7.4-10.4); Platelet Count 422 K/uL (130-400); RDW Coefficient of Variation 15.9 % (11.5-14.5); RDW Standard Deviation 55.9 fL (36.4-46.3); Red Blood Count 3.58 M/uL (4.7-6.1); White Blood Count 11.63 K/uL (4.8-10.8)
[2019-02-11 06:54] LABS: BUN Creatinine Ratio 25.8 (10-20); Calcium 8.8 mg/dl (8.5-10.1); Creatinine Clr Calc Pharmacy 116.5 ml/min; Est GFR (African American) 141.8; Est GFR (Non-African American) 122.3; Potassium 4.1 mmol/L (3.5-5.1)
[2019-02-11] MEDS: PROPRANOLOL HCL 10 MG TAB PO SCH ×2 (08:27→20:35)
[2019-02-11] MEDS: guaiFENesin 600 MG TABCR PO SCH ×2 (08:28→20:35)
[2019-02-11] MEDS: VORICONAZOLE 200 MG TABLET PO SCH ×2 (08:29→20:35)
[2019-02-11] MEDS: BUDESONIDE/FORMOTEROL FUMARATE 160/4.5 60 PUFFS/INHALER INH SCH ×2 (08:29→20:35)
[2019-02-11] MEDS: FAMOTIDINE 20 MG TAB PO SCH ×2 (08:30→20:35)
[2019-02-11] MEDS: TIOTROPIUM BROMIDE 5 PUFF/90 MCG INH INH SCH (08:30)
[2019-02-11] MEDS: ENOXAPARIN INJ 40 MG/0.4 ML SYR SQ SCH (08:30)
--- NOTE | 2019-02-11 09:36 | Progress Note ---
DATE: 02/11/2019 Mr. Castillo is seen today on 02/11/2019. He looks very good. He has been eating well. He is ambulating in the hallway with a walker. He is moving his bowels. He is on room air. I was pleased with his x-ray yesterday. At this point, I believe that his lung is stuck and we are going to take this chest tube off suction and in fact we are going to disconnect it tomorrow and get an x-ray to see how it looks. My feeling is that we will be able to slowly back this out and I am hopeful that his lung heals with this. His white count today is down to 11,630, hemoglobin stable at 10.8. His albumin from about 10 days ago is still only 2.2 and at this point, I do not think we are close to considering surgery on him. We will see how he does with the chest tube. This chest tube will be simply left in place and act as a wick. This will take several weeks for us to back this out, but this can be done as an outpatient. I will follow him regularly in the office. SAJAN
[2019-02-11] MEDS: levoFLOXacin 500 MG TAB PO SCH (10:58)
--- NOTE | 2019-02-11 12:48 | Hospitalist Progress Note ---
Date of Service February 11, 2019 Assessment & Plan (1) Empyema, right: Pleural fluid cultures growing pseudomonas and aspergillus - continue Levaquin for 21 days total per ID, continue voriconazole po for aspergillus Consulted thoracic surgery - patient had pigtail placed by radiology under CT guidance 02/01, 02/06 pigtail removed and chest tube placed by thoracic surgery 02/06 02/09 - chest tube repositioned by surgery 02/11 - surgery will take chest tube off suction and leave tube itself in place to act as a wick. - per surgery, patient is not a good candidate for resection given nutritional status (2) Weakness: improving, ambulating with walker PT/OT (3) COPD (chronic obstructive pulmonary disease): stable, no exacerbation Continue home inhalers PRN albuterol nebs. 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 Dispo: PT/OT evals for placement, came from [facility] and likely will return there at discharge Subjective Mr. Castillo's cough is improving. He has no other complaints Review of Systems Review of Systems: All systems reviewed & are unremarkable except as noted in HPI & below Physical Exam Physical Exam: General: no distress Eyes: normal inspection, PERLL Respiratory: chest non tender, clear to auscultation, normal breath sounds, no respiratory distress, no accessory muscle use Cardiac: regular rate and rhythm, no rub or gallop, no murmur, no edema, no jvd GI/: active bowel sounds, no abd pain or tenderness, soft, non distended Extremities: normal range of motion, normal strength, non tender Neuro/Psych: alert and oriented x 3, normal mood and affect Skin: normal color, dry Results & Data Vital Signs (Past 12 Hours) Vital Signs Temp Pulse Resp BP Pulse Ox 02/11/19 07:34 36.8 C 105 H 16 137/86 95 PG Care Time/CCT Total # of Minutes Spent Total Time Spent with Patient: Total time spent is greater than 50% in coordination of care (as documented) at patient's floor/unit and/or counseling patient:
[2019-02-11] MEDS: MULTIVITAMIN TAB PO SCH (20:35)
[2019-02-12] MEDS: ACETAMINOPHEN 325 MG TAB PO SCH ×4 (01:38→20:44)
[2019-02-12 05:21] LABS: Hematocrit (blood only) 35.3 % (42-52); Hemoglobin 11.5 g/dL (14.0-18.0); Mean Corpuscular Hemoglobin 30.7 pg (25-34); Mean Corpuscular Hgb Conc 32.6 g/dL (32-36); Mean Corpuscular Volume 94.4 fL (80-100); Mean Platelet Volume 8.7 fL (7.4-10.4); Platelet Count 410 K/uL (130-400); RDW Standard Deviation 55.8 fL (36.4-46.3); Red Blood Count 3.74 M/uL (4.7-6.1); White Blood Count 13.39 K/uL (4.8-10.8)
[2019-02-12 05:49] LABS: BUN Creatinine Ratio 27.3 (10-20); Creatinine Clr Calc Pharmacy 103.5 ml/min; Est GFR (African American) 135.1; Est GFR (Non-African American) 116.5; Potassium 4.3 mmol/L (3.5-5.1)
[2019-02-12 08:47] LABS: Alanine Aminotransferase 27 U/L (12-78); Albumin Level 2.5 gm/dl (3.4-5.0); Alkaline Phosphatase 87 U/L (45-117); Aspartate Aminotransferase 26 U/L (15-37); Bilirubin Direct < 0.1 mg/dl (0-0.2); Bilirubin,Total 0.1 mg/dl (0.2-1); Total Protein 7.1 gm/dl (6.4-8.2)
[2019-02-12] MEDS: PROPRANOLOL HCL 10 MG TAB PO SCH ×2 (08:49→20:42)
[2019-02-12] MEDS: ENOXAPARIN INJ 40 MG/0.4 ML SYR SQ SCH (08:50)
[2019-02-12] MEDS: guaiFENesin 600 MG TABCR PO SCH ×2 (08:50→20:41)
[2019-02-12] MEDS: BUDESONIDE/FORMOTEROL FUMARATE 160/4.5 60 PUFFS/INHALER INH SCH ×2 (08:50→20:41)
[2019-02-12] MEDS: FAMOTIDINE 20 MG TAB PO SCH ×2 (08:50→20:41)
[2019-02-12] MEDS: TIOTROPIUM BROMIDE 5 PUFF/90 MCG INH INH SCH (08:50)
[2019-02-12] MEDS: VORICONAZOLE 200 MG TABLET PO SCH (08:50)
--- NOTE | 2019-02-12 10:00 | XRay Report ---
XR chest 2V routine HISTORY: right chest tube COMPARISON: Chest 02/10/2019. FINDINGS: Right-sided chest tube is unchanged in position. Persistent right apical consolidation. Sma ll right pneumothorax has increased in size. Interval development of a trace bilateral pleural effusi ons. The left lung is clear. The heart is normal in size. IMPRESSION: 1. No change in the right-sided chest tube and right apical consolidation. 2. Increase in size in the small right pneumothorax. 3. Trace bilateral pleural effusions have developed in the interval. Electronically signed by: Jr Tejada M.D. 02/12/2019 9:59 AM
[2019-02-12] MEDS: levoFLOXacin 500 MG TAB PO SCH (10:23)
--- NOTE | 2019-02-12 11:59 | Hospitalist Progress Note ---
Date of Service February 12, 2019 Assessment & Plan (1) Empyema, right: - Pleural fluid +Pseudomonas aeruginosa and Aspergillus fumigatus. - ID consulted -- completed 7 day course of Voriconazole today; will need 21 days of Levaquin. - Thoracic surgery following for chest tube management -- will monitor over next 24 hours, will need to leave chest tube in place. - Pt. is not candidate for surgical intervention at this time. (2) Weakness: - PT/OT -- discharge to [facility] once medically stable. (3) COPD (chronic obstructive pulmonary disease): - Stable, no acute exacerbation noted. - Continue Symbicort and Spiriva. (4) Chronic systolic CHF (congestive heart failure): - Most recent TTE in December 2018 showed EF 30-35%, wall motion abnormalities, mod tricuspid regurg. - Currently well compensated; monitor net I/Os and daily weights. - Not currently on ACEI -- consider adding agent; on Propanolol at home. (5) Cardiomyopathy: - Echo with reduced EF, wall motion abnormalities. Possibly alcohol induced vs. ischemic. - Continue beta henna; consider addition of ACEI. (6) NSTEMI (non-ST elevated myocardial infarction): - Noted during admission in December 2018. - Cardiology consulted, would benefit from cardiac cath in future once medically stable. (7) ETOH abuse: - Pt. previously would drink 75 beers per week (~8-12 per day); h/o mild withdrawal during previous admissions. - B12 and Folate levels in the AM. - No evidence of acute withdrawal at this time. (8) Severe protein-calorie malnutrition: - Patient has BMI is 16.7 - poor nutrition likely from history of alcoholism - Encourage boost with meals. (9) Anemia: - Hgb ~10-12 over last few months, did decrease slightly during this admission. - Will order iron studies and B12/folate in setting of ETOH abuse. - Continue to monitor H/H frequently. - Also has chronic leukocytosis -- unclear if this has been evaluated in past, no heme/onc notes are in the system. (10) DVT prophylaxis: - Lovenox daily. Dispo: Discharge to [facility] once medically stable, likely over next 48 hours. Subjective Pt. is doing well overall. He denies pain at chest tube insertion site, chest pain, SOB. Review of Systems Review of Systems: All systems reviewed & are unremarkable except as noted in HPI & below Constitutional: no fever, no chills, no fatigue, no weakness and no anorexia Respiratory: no cough, no dyspnea, no dyspnea on exertion and no wheezing Cardiovascular: no chest pain, no palpitations and no edema Gastrointestinal: no abdominal pain, no nausea, no vomiting and no constipation Genitourinary: no difficulty urinating Musculoskeletal: no back pain and no joint pain Integumentary: no non-healing lesions Physical Exam Physical Exam: General: Resting comfortably HEENT: NC/AT; PERRLA with EOMI; [place] conjunctiva, MMM. No erythema of posterior pharynx Neck: Supple and nontender Cardiac: RRR Lungs: CTA bilaterally; chest tube site on right lateral chest. Abdomen: Bowel normoactive X 4; Nontender to palpation Extremities: Warm. No edema present Neuro: No focal weakness Skin: No rash Results & Data Vital Signs (Past 12 Hours) Vital Signs Temp Pulse Resp BP Pulse Ox 02/12/19 07:26 36.8 C 82 16 131/84 97 Laboratory Results 02/12/19 02/12/19 02/12/19 Range/Units 05:08 05:08 05:08 WBC 13.39 H (4.8-10.8) K/uL RBC 3.74 L (4.7-6.1) M/uL Hgb 11.5 L (14.0-18.0) g/dL Hct 35.3 L (42-52) % MCV 94.4 (80-100) fL MCH 30.7 (25-34) pg MCHC 32.6 (32-36) g/dL RDW Std Deviation 55.8 H (36.4-46.3) fL RDW Coeff of Jm 16.0 H (11.5-14.5) % Plt Count 410 H (130-400) K/uL MPV 8.7 (7.4-10.4) fL Sodium 136 (136-145) mmol/L Potassium 4.3 (3.5-5.1) mmol/L Chloride 104 (98-107) mmol/L Carbon Dioxide 25 (21-32) mmol/L Anion Gap 7.0 (3-11) BUN 15 (7-18) mg/dl Creatinine 0.54 L (0.6-1.4) mg/dl Est Cr Clr Drug Dosing 103.5 ml/min Est GFR ( Amer) 135.1 Est GFR (Non-Af Amer) 116.5 BUN/Creatinine Ratio 27.3 H (10-20) Glucose 101 H (70-99) mg/dl Calcium 9.0 (8.5-10.1) mg/dl Total Bilirubin 0.1 L (0.2-1) mg/dl Direct Bilirubin < 0.1 (0-0.2) mg/dl AST 26 (15-37) U/L ALT 27 (12-78) U/L Alkaline Phosphatase 87 (45-117) U/L Total Protein 7.1 (6.4-8.2) gm/dl Albumin 2.5 L (3.4-5.0) gm/dl PG Care Time/CCT Total # of Minutes Spent Total Time Spent with Patient: Total time spent is greater than 50% in coordination of care (as documented) at patient's floor/unit and/or counseling patient:
--- NOTE | 2019-02-12 15:22 | Progress Note ---
DATE: 02/12/2019 Mr. Castillo was seen today. He looks fine. He has been eating quite well. He is ambulating in the hallway, moving his bowels. He did not have an air leak and so I simply disconnected this chest tube and let it open to air and unfortunately a chest x-ray showed that he had dropped his lung. It appears to me that he has less fluid than he had before and he did drain about 50 mL. We are going to go ahead and put him back on suction for the time being. This is going to complicate matters a bit for us; however, I think we should simply continue the antibiotics and will see how he does.
[2019-02-12] MEDS: MULTIVITAMIN TAB PO SCH (20:40)
[2019-02-13] MEDS: ACETAMINOPHEN 325 MG TAB PO SCH ×4 (02:48→20:51)
--- NOTE | 2019-02-13 07:36 | XRay Report ---
XR chest 1V portable CLINICAL HISTORY: 58 years-old Male presenting with pneumothorax. TECHNIQUE: Portable upright AP view of the chest was obtained. COMPARISON: 02/12/2019. FINDINGS: Large bore right pleural drain position of the paramediastinal right mid to upper lung. Cardiomediast inal silhouette unchanged. Mildly low lung volume on the right. Significant interval reduction in the right pneumothorax, which is now trace if present. Unchanged dense right apical opacity. Left lung a nd pleural space clear. Osseous structures normal. Upper abdomen normal. IMPRESSION: 1. Resolution of the right apical pneumothorax with the right pleural drain in place. 2. Dense right apical opacity as on prior. Electronically signed by: Cameron Romero M.D. 02/13/2019 7:35 AM
[2019-02-13 07:45] LABS: Hematocrit (blood only) 35.9 % (42-52); Hemoglobin 11.9 g/dL (14.0-18.0); Mean Corpuscular Hemoglobin 31.2 pg (25-34); Mean Corpuscular Hgb Conc 33.1 g/dL (32-36); Mean Corpuscular Volume 94.2 fL (80-100); Mean Platelet Volume 8.6 fL (7.4-10.4); Platelet Count 500 K/uL (130-400); RDW Coefficient of Variation 15.9 % (11.5-14.5); RDW Standard Deviation 54.4 fL (36.4-46.3); Red Blood Count 3.81 M/uL (4.7-6.1)
[2019-02-13 08:10] LABS: BUN Creatinine Ratio 27.3 (10-20); Calcium 9.4 mg/dl (8.5-10.1); Creatinine Clr Calc Pharmacy 109.6 ml/min; Est GFR (African American) 138.3; Est GFR (Non-African American) 119.3; Potassium 4.2 mmol/L (3.5-5.1)
[2019-02-13 08:13] LABS: Ferritin 368.8 ng/ml (8-388); Folate (Folic Acid) 16.56 ng/ml (>5.38)
[2019-02-13] MEDS: PROPRANOLOL HCL 10 MG TAB PO SCH ×2 (08:28→20:45)
[2019-02-13] MEDS: FAMOTIDINE 20 MG TAB PO SCH ×2 (08:28→20:44)
[2019-02-13] MEDS: guaiFENesin 600 MG TABCR PO SCH ×2 (08:28→20:44)
[2019-02-13] MEDS: BUDESONIDE/FORMOTEROL FUMARATE 160/4.5 60 PUFFS/INHALER INH SCH ×2 (08:29→20:43)
[2019-02-13] MEDS: ENOXAPARIN INJ 40 MG/0.4 ML SYR SQ SCH (08:29)
[2019-02-13] MEDS: levoFLOXacin 500 MG TAB PO SCH (08:29)
[2019-02-13] MEDS: TIOTROPIUM BROMIDE 5 PUFF/90 MCG INH INH SCH (08:29)
--- NOTE | 2019-02-13 14:12 | Progress Note ---
DATE: 02/13/2019 Mr. Castillo was seen today on 02/13/2019. Unfortunately, with the chest tube open, he dropped his lung. We put him on suction. His x-ray looks much better today, although he still had some marked consolidation. The patient is eating well. He is walking better. My feeling is he is going to improve with this especially as we improve his nutrition. We are going to try a Heimlich valve on him. He drained 100 mL after we attached him to suction, but I believe if we put a Heimlich valve on, his lung may not collapse, in which case we can simply wait it out and send him back to [facility]. SAJAN
--- NOTE | 2019-02-13 15:36 | Hospitalist Progress Note ---
Date of Service February 13, 2019 Assessment & Plan (1) Empyema, right: - Pleural fluid +Pseudomonas aeruginosa and Aspergillus fumigatus. - ID consulted -- completed 7 day course of Voriconazole; will need 21 days of Levaquin. - Thoracic surgery following for chest tube management. - Pt. is not candidate for surgical intervention at this time. (2) Weakness: - PT/OT -- discharge to [facility] once medically stable. (3) COPD (chronic obstructive pulmonary disease): - Stable, no acute exacerbation noted. - Continue Symbicort and Spiriva. (4) Chronic systolic CHF (congestive heart failure): - Most recent TTE in December 2018 showed EF 30-35%, wall motion abnormalities, mod tricuspid regurg. - Well compensated; monitor net I/Os and daily weights. - Not currently on ACEI -- consider adding agent; on Propanolol at home. (5) Cardiomyopathy: - Echo with reduced EF, wall motion abnormalities. Possibly alcohol induced vs. ischemic. - Continue beta henna; consider addition of ACEI. (6) NSTEMI (non-ST elevated myocardial infarction): - Noted during admission in December 2018. - Cardiology consulted, would benefit from cardiac cath in future once medically stable. (7) ETOH abuse: - Pt. previously would drink 75 beers per week (~8-12 per day); h/o mild withdrawal during previous admissions. - B12 and Folate levels WNL. - No evidence of acute withdrawal at this time. (8) Severe protein-calorie malnutrition: - Patient has BMI is 16.7 - poor nutrition likely from history of alcoholism - Encourage boost with meals. (9) Anemia: - Hgb ~10-12 over last few months, did decrease slightly during this admission. - No indication for iron replacement per labs. - Monitor H/H frequently. - Also has chronic leukocytosis -- unclear if this has been evaluated in past, no heme/onc notes are documented. (10) DVT prophylaxis: - Lovenox daily. Dispo: Discharge to [facility] once medically stable. Dr. Forrest following for chest tube management. Supervising Physician Co-Signing Physician Notes Chart reviewed, case discussed with Anabella MANLEY. Agree with decision making and plan. Care as above. Subjective Pt. is doing well. Dr. Forrest following. Review of Systems Review of Systems: All systems reviewed & are unremarkable except as noted in HPI & below Constitutional: no fever, no chills, no fatigue, no weakness and no anorexia Respiratory: no cough, no dyspnea, no dyspnea on exertion and no wheezing Cardiovascular: no chest pain, no palpitations and no edema Gastrointestinal: no abdominal pain, no nausea and no constipation Genitourinary: no difficulty urinating Musculoskeletal: no back pain and no joint pain Physical Exam Physical Exam: General: Resting comfortably HEENT: NC/AT; PERRLA with EOMI; [place] conjunctiva, MMM. No erythema of posterior pharynx Neck: Supple and nontender Cardiac: RRR Lungs: CTA bilaterally; R chest tube, connected to suction. Abdomen: Bowel normoactive X 4; Nontender to palpation Extremities: Warm. No edema present Neuro: No focal weakness Skin: No rash Results & Data Vital Signs (Past 12 Hours) Vital Signs Temp Pulse Pulse Resp BP BP Pulse Ox 02/13/19 15:18 36.8 C 98 H 18 117/74 95 02/13/19 11:09 36.4 C L 96 H 22 130/90 98 02/13/19 07:18 36.9 C 104 H 16 130/90 93 Laboratory Results 02/13/19 02/13/19 02/13/19 Range/Units 07:31 07:31 07:31 WBC 13.70 H (4.8-10.8) K/uL RBC 3.81 L (4.7-6.1) M/uL Hgb 11.9 L (14.0-18.0) g/dL Hct 35.9 L (42-52) % MCV 94.2 (80-100) fL MCH 31.2 (25-34) pg MCHC 33.1 (32-36) g/dL RDW Std Deviation 54.4 H (36.4-46.3) fL RDW Coeff of Jm 15.9 H (11.5-14.5) % Plt Count 500 H (130-400) K/uL MPV 8.6 (7.4-10.4) fL Sodium 133 L (136-145) mmol/L Potassium 4.2 (3.5-5.1) mmol/L Chloride 102 (98-107) mmol/L Carbon Dioxide 24 (21-32) mmol/L Anion Gap 7.0 (3-11) BUN 14 (7-18) mg/dl Creatinine 0.51 L (0.6-1.4) mg/dl Est Cr Clr Drug Dosing 109.6 ml/min Est GFR ( Amer) 138.3 Est GFR (Non-Af Amer) 119.3 BUN/Creatinine Ratio 27.3 H (10-20) Glucose 102 H (70-99) mg/dl Calcium 9.4 (8.5-10.1) mg/dl Iron 45 (35-175) mcg/dl TIBC 331 (250-450) mcg/dl Ferritin 368.8 (8-388) ng/ml Vitamin B12 349 (211-911) pg/ml Folate 16.56 (>5.38) ng/ml PG Care Time/CCT Total # of Minutes Spent Total Time Spent with Patient: Total time spent is greater than 50% in coordination of care (as documented) at patient's floor/unit and/or counseling patient:
[2019-02-13] MEDS: MULTIVITAMIN TAB PO SCH (20:47)
[2019-02-14] MEDS: ACETAMINOPHEN 325 MG TAB PO SCH ×3 (00:46→13:04)
[2019-02-14 07:15] LABS: Hematocrit (blood only) 36.2 % (42-52); Hemoglobin 11.9 g/dL (14.0-18.0); Mean Corpuscular Hemoglobin 30.4 pg (25-34); Mean Corpuscular Hgb Conc 32.9 g/dL (32-36); Mean Corpuscular Volume 92.6 fL (80-100); Mean Platelet Volume 8.7 fL (7.4-10.4); Platelet Count 464 K/uL (130-400); RDW Coefficient of Variation 15.8 % (11.5-14.5); RDW Standard Deviation 54.1 fL (36.4-46.3); Red Blood Count 3.91 M/uL (4.7-6.1); White Blood Count 16.37 K/uL (4.8-10.8)
--- NOTE | 2019-02-14 07:16 | XRay Report ---
XR chest 1V portable CLINICAL HISTORY: pneumothorax COMPARISON STUDY: Chest CT February 09, 2019. Chest radiograph February 13, 2019. FINDINGS: Right chest tube is unchanged in position. There is right upper lobe volume loss. Right upp er lobe airspace opacity persists. Aeration has slightly improved. There may be a small amount of ple ural gas. There is mild right basilar opacity which is unchanged. Emphysema is noted. There is no lef t pneumothorax. There is no evidence for pulmonary edema. Cardiomediastinal silhouette is stable. IMPRESSION: Right chest tube in place. Persistent right upper lobe airspace opacity. Slight improvement in lung a eration. Mild right basilar opacity which appears unchanged. Electronically signed by: Randolph Arredondo M.D. 02/14/2019 7:14 AM
[2019-02-14 07:45] LABS: BUN Creatinine Ratio 32.1 (10-20); Calcium 9.3 mg/dl (8.5-10.1); Creatinine Clr Calc Pharmacy 111.8 ml/min; Est GFR (African American) 139.4; Est GFR (Non-African American) 120.3; Potassium 4.5 mmol/L (3.5-5.1)
[2019-02-14] MEDS: PROPRANOLOL HCL 10 MG TAB PO SCH (08:45)
[2019-02-14] MEDS: TIOTROPIUM BROMIDE 5 PUFF/90 MCG INH INH SCH (08:45)
[2019-02-14] MEDS: BUDESONIDE/FORMOTEROL FUMARATE 160/4.5 60 PUFFS/INHALER INH SCH (08:45)
[2019-02-14] MEDS: ENOXAPARIN INJ 40 MG/0.4 ML SYR SQ SCH (08:46)
[2019-02-14] MEDS: FAMOTIDINE 20 MG TAB PO SCH (08:46)
[2019-02-14] MEDS: guaiFENesin 600 MG TABCR PO SCH (08:46)
--- NOTE | 2019-02-14 09:36 | Progress Note ---
DATE: 02/14/2019 Mr. Castillo was seen today. His tube is now attached to a Heimlich valve and his lung has remained expanded. He drained about 100 mL of serous fluid. His white count is up to 16,370, but he looks very good. He has been afebrile. His vital signs have remained stable. The patient will require antibiotics for a significant period of time. At this point, I think that he could go back to [facility] for these antibiotics and also to keep his chest tube in place. I believe he is improved with this and I believe he will continue to improve. I would like to see him back in the office in about [address] scan of his chest without contrast. From our standpoint, he can be discharged when he is deemed stable by the primary care service. SAJAN
[2019-02-14] MEDS: levoFLOXacin 500 MG TAB PO SCH (10:44)
--- NOTE | 2019-02-14 12:45 | Discharge Summary ---
Date of Service February 14, 2019 Admission HPI Per Admitting Provider 58 y/o male presented to the emergency department with ongoing weakness which became worse. He was unable to self remove from toilet due to weakness. With COPD he has chronic SOB which there has been no change. He had been in rehabilitation, but was discharged on 01/31/19. Patient denies chest pain, nausea/vomiting, F/C or urinary symptoms. He had a CT chest performed on 01/31/19 showing a R empyema. The patient received dose of Vanco, Levaquin, and Aztreonam in the ED. Admission Exam Per Admitting Provider General- adult Head- atraumatic Eyes- PERRL, EOMI, anicteric ENT- oropharynx clear Neck- supple, no JVD, no adenopathy, no thyromegaly; carotids +2/2, no bruits appreciated Lungs- decreased breath sounds b/l R>L, with expiratory wheezing. Heart- regular rhythm; no murmur, no gallop, no rub appreciated Abdomen- normal bowel sounds, soft, nontender, no hepatosplenomegaly Extremities- no pretibial edema, no calf tenderness; peripheral pulses intact Neuro- alert, oriented x 3; PERRL, EOMI; Non-focal. Skin- warm & dry Principal Diagnosis Right Empyema Discharge Exam General: Resting comfortably HEENT: NC/AT; PERRLA with EOMI; [place] conjunctiva, MMM. No erythema of posterior pharynx Neck: Supple and nontender Cardiac: RRR Lungs: CTA bilaterally; R chest tube, no output noted. Abdomen: Bowel normoactive X 4; Nontender to palpation Extremities: Warm. No edema present Neuro: No focal weakness Skin: No rash Discharge Data Allergies Allergy/AdvReac Type Severity Reaction Status Date / Time erythromycin base Allergy Unknown Unknown Verified 01/31/19 23:28 Penicillins Allergy Unknown Unknown Verified 01/31/19 23:28 NITRATES IN PROCESSED MEATS Allergy Severe Difficulty Uncoded 01/31/19 23:28 Breathing Consultations 02/01/19 01:34 ED Decision to Admit Stat 02/01/19 04:05 Consult Thoracic Surgery Routine 02/01/19 22:26 Consult Infectious Diseases Routine Procedures Performed Operation Date: 02/05/19 12:00 <No data on this case meets the specified criteria> Ordered Studies 02/01/19 CT abscess drainage Routine CT guided needle placement Routine CT limited or localized study Routine 02/05/19 07:41 CT chest wo con Urgent 02/09/19 08:30 CT chest wo con Stat Hospital Course (1) Empyema, right: Pleural fluid +Pseudomonas aeruginosa and Aspergillus fumigatus. ID consulted -- completed 7 day course of Voriconazole; will complete Levaquin course x 21 days on 02/24/19. Thoracic surgery following for chest tube management. Attached to Heimlich valve and lung is now reexpanded. Will need f/u with thoracic surgery in [address] chest. Will need to empty output and document -- bring records to next outpt appointment. Pt. is not candidate for surgical intervention. (2) Weakness: Discharge to [facility] today. (3) COPD (chronic obstructive pulmonary disease): Stable, no acute exacerbation noted. Continued Symbicort and Spiriva. (4) Chronic systolic CHF (congestive heart failure): Most recent TTE in December 2018 showed EF 30-35%, wall motion abnormalities, mod tricuspid regurg. Well compensated. Not currently on ACEI; on Propanolol at home. (5) Cardiomyopathy: Echo with reduced EF, wall motion abnormalities. Possibly alcohol induced vs. ischemic. Continued beta henna; not currently on ACEI. (6) NSTEMI (non-ST elevated myocardial infarction): Noted during admission in December 2018. Cardiology consulted, would benefit from cardiac cath in future once medically stable. (7) ETOH abuse: Pt. previously would drink 75 beers per week (~8-12 per day); h/o mild withdrawal during previous admissions. B12 and Folate levels WNL. No evidence of acute withdrawal during this admission. (8) Severe protein-calorie malnutrition: Patient has BMI is 16.7 - poor nutrition likely from history of alcoholism Encourage boost with meals. (9) Anemia: Hgb ~10-12 over last few months, did decrease slightly during this admission. No indication for iron replacement per labs. Also has chronic leukocytosis -- unclear if this has been evaluated in past, no heme/onc notes are documented. (10) DVT prophylaxis: Lovenox daily. Discharged to [facility] on 02/14/19. Total Time Total Time Spent Total Time Spent (In Minutes): >30 minutes Total Time Includes: Examination of the Patient, Discharge Planning, Medication Reconciliation, Communication With Other Providers and Other Discharge Plan Discharge Items Patient Disposition: Transfer [facility] Reason For Visit: R empyema Discharge Diagnosis: Right sided empyema secondary to Aspergillus and Pseudomonas Condition on Discharge: Fair Activity: As commented below Exercise/Sports: Gradually increase as tolerated Non-emergency contact: Primary Care Provider and Surgeon Call non-emergency contact if: you have any medication questions, your symptoms worsen, your pain is not controlled, your pain is worsening, your pain is concerning for you, your wound has increased redness, your wound has increased drainage and your wound pain has increased Follow-up/Referrals: Ronni Melendez [Primary Care Provider] - Diet: Regular Addtl Attending Provider Instructions: 1. Right Empyema * [place] drain fluid as needed and record all measurements on a sheet of paper -- pt. will need to bring this documentation with him to his thoracic surgery appointment in 1 week. * An appointment will be scheduled with Dr. Forrest from thoracic surgery in 1 week. He will need a CXR prior to appointment; please arrange transportation accordingly. * Continue Levaquin 500 mg daily to complete a 21 day course (end date: 02/24/2019) 2. Please monitor labs, including CBC with diff and BMP, every 2-3 weeks. 3. Please schedule appointment with PCP in 1-2 weeks. Pending Studies at Discharge: Yes Studies:: Pleural Fluid cultures. Stand-Alone Forms: My [facility] Skilled Items Patient informed of condition?: Yes DNR: No Discharge Level of Care: Skilled Communicable Disease: No Discharge Prognosis: Improving Lines: None Urinary Catheter: No Medications and DC Order Prescriptions: New levofloxacin 500 mg Tablet 500 mg PO DAILY@1100 1 Days Qty: 1 RF: 0 Continued Breo Ellipta 100-25 mcg/dose Blister With Device 1 inh INHALATION DAILY RF: 0 Incruse Ellipta 62.5 mcg/actuation Blister With Device 1 inh INHALATION DAILY RF: 0 Spiriva with HandiHaler 18 mcg Capsule, W/Inhalation Device 1 cap INHALATION DAILY RF: 0 acetaminophen 325 mg Tablet 650 mg PO Q6H PRN (Reason: pain/temp over 101) RF: 0 bisacodyl [Dulcolax (bisacodyl)] 10 mg Suppository 10 mg KY DAILY PRN (Reason: Constipation) RF: 0 Fleet Enema 19-7 gram/118 mL Enema 118 ml KY Q24H PRN (Reason: Constipation) RF: 0 magnesium hydroxide [Milk of Magnesia] 400 mg/5 mL Suspension 30 ml PO DAILY PRN (Reason: Constipation) RF: 0 albuterol sulfate [Ventolin HFA] 90 mcg/actuation HFA aerosol inhaler 1 - 2 puff inhalation .Q4-6HRS PRN (Reason: Shortness Of Breath Or Wheezing) RF: 0 Symbicort 160-4.5 mcg/actuation HFA aerosol inhaler 2 puff inhalation BID RF: 0 cetirizine 10 mg tablet 10 mg PO DAILY PRN (Reason: Allergy Symptoms) RF: 0 multivitamin [Daily-Deanne] Tablet 1 tab PO QPM Qty: 30 RF: 0 propranolol 10 mg Tablet 15 mg PO BID Qty: 45 RF: 1 Discharge Orders: Discharge Order (Routine); Ordered 02/14/19 Ordered By: Anabella Henderson Admission Data Admit Date/Time: 02/01/19 03:41 Attending Provider: Jairo Oliveira Admit Provider: Swapnil Keane Primary Care Provider: Ronni Melendez Other Providers: Swapnil Keane ; Oswaldo Forrest ; Ru Ward ; Allen Marquez Other Interventions: Discharge Summary Assessment (RN) Last Done: 02/14/19 12:05 DC Date/Time DO NOT enter until pt leaves facility: 02/14/19 17:01 Supervising Physician Co-Signing Physician Notes I personally examined the patient and verified all garcia points of history and exam, discussed case, and agree with decision making with Chichi Henderson PAC feeling ok, up to going to [facility]. only complaint is not knowing exactly when transport time is vitals noted nad breathing unlabored no accessory muscles good effort empyema - stable for SNF, ongoing close outpt f/u. otherwise as above
== END 2019-02-14 17:01 | DRG 177 ==
LOC: ED 22:56 → 1E 02-01 02:59 → SUATTDRO 02-01 03:41 → 2S 02-01 19:04 → 3N 02-03 11:21

== ENCOUNTER 2019-08-31 19:01 | Inpatient (IN) ==
[2019-08-31] MEDS ORDERED: SODIUM CHLORIDE 0.9% 1000ML 1,000 ML IV ONE (19:09)
--- NOTE | 2019-08-31 19:46 | XRay Report ---
SINGLE VIEW PELVIS CLINICAL HISTORY: Fall. FINDINGS: An AP, portable, supine pelvic radiograph is compared to study dated 07/30/2015 and correlate d with pelvic CT dated 11/06/2018. The examination is degraded by patient rotation. The skeletal struc tures are heterogeneously osteopenic. There is a slightly distracted intertrochanteric fracture of th e right femur with overlying soft tissue edema. The bony pelvis and left hip appear intact. There is flattening/deformity of the right femoral head. Degenerative joint space narrowing is seen in both hi ps, right greater than left. The sacroiliac joints are normal as imaged. There is no evidence of jareth l obstruction. Phleboliths are observed in the pelvis. IMPRESSION: Mildly distracted intertrochanteric fracture of the right femur. Electronically signed by: Dru Akbar M.D. 08/31/2019 7:45 PM
--- NOTE | 2019-08-31 19:49 | XRay Report ---
SINGLE VIEW CHEST CLINICAL HISTORY: Falls. FINDINGS: 2 AP, portable, supine chest radiographs are compared to study dated 04/23/2019 and correlat ed with chest CT dated 03/09/2019. The examination is degraded by portable technique and patient rota tion. The cardiomediastinal silhouette is unremarkable noting atherosclerotic calcification of the t horacic aorta. Emphysema and chronic interstitial thickening are similar to previous. There is increa sing right upper lobe consolidative change as compared to 04/23/2019. No large pleural effusion or pne umothorax is seen. The skeletal structures are osteopenic. There are healed left-sided rib fractures. IMPRESSION: 1. There is increasing right upper lobe airspace consolidation as compared to the 04/23/2019 examinati on. Correlate clinically for evidence of an infectious/inflammatory pneumonitis. 2. Emphysema. ACT 112: Negative or not required by law. Electronically signed by: Dru Akbar M.D. 08/31/2019 7:48 PM
--- NOTE | 2019-08-31 19:57 | CT Scan Report ---
CT SCAN OF THE BRAIN WITHOUT IV CONTRAST CLINICAL HISTORY: Falls. COMPARISON STUDY: CT of the brain dated 12/15/2009. TECHNIQUE: Unenhanced axial CT scan of the brain is performed from the vertex to the skull base. A do se lowering technique was utilized adhering to the principles of ALARA. CT DOSE: 935.47 mGy.cm FINDINGS: Brain parenchyma: There is age advanced involutional change noting mild subcortical and periventricu lar microangiopathic change. There is no hemorrhage, mass effect, or evidence of acute territorial is chemia by CT criteria. Tobar-white matter differentiation is preserved. No extra-axial fluid collectio n is seen. Ventricles, sulci, cisterns: Prominent secondary to involutional change. Intracranial vasculature: There is atherosclerotic calcification of the cavernous carotid and vertebr al arteries. Calvarium: The skeletal structures are osteopenic. No depressed calvarial fracture is identified. Sinuses and mastoids: The visualized paranasal sinuses are clear. The mastoid air cells are well pneu matized. Orbits: The bony orbits are grossly intact. IMPRESSION: There is no hemorrhage, mass effect, or evidence of acute territorial ischemia by CT nancy abarca. ACT 112: Negative or not required by law. Electronically signed by: Dru Akbar M.D. 08/31/2019 7:56 PM
--- NOTE | 2019-08-31 20:03 | CT Scan Report ---
CT SCAN OF THE CERVICAL SPINE CLINICAL HISTORY: Falls. COMPARISON STUDY: CT of the cervical spine dated 12/15/2009. TECHNIQUE: CT scan of the cervical spine is performed from the skull base to the upper thoracic spine . Images are reviewed in the axial, sagittal, and coronal planes. IV contrast was not administered fo r this examination. A dose lowering technique was utilized adhering to the principles of ALARA. FINDINGS: Skeletal structures: The skeletal structures are osteopenic. There is no evidence of fracture or subl uxation involving the cervical spine. Vertebral body height is maintained. There is minimal retrolist hesis at C5-C6. Alignment is otherwise preserved. There is straightening of the cervical lordosis wit h mild reversal centered at C5. Small anterior osteophytes are noted in the lower cervical spine. The odontoid process and lateral masses are intact. The atlantoaxial articulation is preserved noting pr oductive degenerative change. The spinous processes appear intact. Mild uncovertebral and facet arthr opathy are noted throughout the cervical spine. Intervertebral discs: There is moderate to advanced disc space narrowing seen at C5-C6 and C6-C7. Mil d to moderate disc space narrowing is noted at the remaining cervical levels. Central canal: Small posterior disc osteophyte complexes for C3-C4 through C6-C7 likely contribute to mild multilevel acquired compromise of the central canal. Soft tissues: The prevertebral and paraspinous soft tissues are within normal limits. There is advanc ed atherosclerotic calcification of the carotid bulbs. Calvarium: The visualized calvarium at the skull base appears intact. Brain parenchyma: Partially visualized brain parenchyma the skull base is within normal limits. Sinuses and mastoids: The visualized paranasal sinuses are clear. The mastoid air cells are well pneu matized. Lung apices: Emphysematous change is noted. There is a small right apical pneumothorax. Scarring is n oted at the right apex. IMPRESSION: 1. There is no evidence of fracture or subluxation involving the cervical spine. 2. Osteopenia and spondylotic change as above. 3. Small right apical pneumothorax. 4. Emphysema. ACT 112: Negative or not required by law. Electronically signed by: Dru Akbar M.D. 08/31/2019 8:02 PM
[2019-08-31] MEDS ORDERED: MoRPHine SULFATE 4 MG/ML 1 ML CARP\\VIAL IV STA (20:08)
[2019-08-31] MEDS ORDERED: ONDANSETRON INJ 2 MG/ML 2 ML VIAL IV STA (20:08)
--- NOTE | 2019-08-31 20:15 | CT Scan Report ---
CT SCAN OF THE ABDOMEN AND PELVIS WITHOUT IV CONTRAST CLINICAL HISTORY: Falls. COMPARISON STUDY: Abdominal CT dated 11/06/2018. Pelvic radiographs dated 08/31/2019. TECHNIQUE: CT scan of the abdomen and pelvis is performed from the lung bases to the proximal femora. Images are reviewed in the axial, sagittal, and coronal planes. IV contrast was not administered for this examination as per the referring clinician. Note that the examination was performed in signific antly suboptimal fashion without IV contrast. The examination is also degraded by streak artifact fro m the arms which could not be elevated above the abdomen. A dose lowering technique was utilized adhe ring to the principles of ALARA. CT DOSE: 233.26 mGy.cm FINDINGS: Lung bases: The heart is normal in size and without pericardial effusion. The coronary arteries are d ensely calcified. Emphysematous change is noted at the lung bases. There is trace right pleural effus ion. Proximal scarring is noted at the right lung base. No airspace consolidation is seen typical for pneumonia. Liver: The unenhanced liver is normal in size, contour, and attenuation. There is no intrahepatic deven iary ductal dilatation. Gallbladder: Unremarkable. Spleen: Normal in size and attenuation. Pancreas: The unenhanced pancreas is grossly unremarkable. Adrenal glands: Unremarkable. Kidneys: The unenhanced kidneys demonstrate mild cortical atrophy and are without hydronephrosis. The re are no renal calculi identified. A 1.3 cm cyst is noted in the left upper pole. Abdominal vasculature: The abdominal aorta is normal in course and caliber noting advanced atheroscle rotic calcification. Bowel: There is no bowel obstruction. The appendix is not clearly identified. Peritoneum: There is no intraperitoneal free air or abdominal ascites. Lymphadenopathy: None. Pelvic viscera: The prostate gland is mildly enlarged and heterogeneous. The bladder is normal as vis ualized. There are small bilateral inguinal hernias. The left ovary contains a small segment of bowel . Skeletal structures: There is a comminuted and mildly displaced intertrochanteric fracture of the rig ht femur. Small distracted fragments are noted. Mild surrounding hemorrhage is noted. No additional f racture is identified. There is advanced avascular necrosis on the right, with flattening, sclerosis, and subchondral collapse of the right femoral head. Milder avascular necrosis is noted in the left f emoral head. Advanced arthritic change with flattening and destruction of the right femoral head are noted. There is No lytic or blastic lesions are seen. IMPRESSION: 1. Suboptimal examination without IV contrast. The examination is also degraded by streak artifact. 2. There is no evidence of solid organ injury in the abdomen or pelvis on this unenhanced examination . 3. There is a mildly displaced intertrochanteric fracture of the right femur as above. 4. 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 5. Emphysema and trace right pleural effusion. 6. There are small bilateral inguinal hernias. The left inguinal hernia contains a small segment of b owel. 7. Additional findings as above. ACT 112: Negative or not required by law. Electronically signed by: Dru Akbar M.D. 08/31/2019 8:14 PM
--- NOTE | 2019-08-31 20:24 | Emergency Department Note ---
History of Present Illness General Chief complaint: Fall Stated complaint: FALL, R HIP PAIN Time Seen by Provider: 08/31/19 19:04 History of Present Illness Maximum Pain Intensity: 10 59-year-old male presents emergency department for fall. Patient states he fell around 9:30 AM. He states he lied on the floor until his girlfriend came home about an hour ago. Patient reporting right-sided hip pain. 10 at 10. Home Medications Home Medications Medication Instructions Recorded Confirmed Type albuterol sulfate [Ventolin HFA] 1 - 2 puff INHALATION .Q4-6HRS PRN 12/29/18 08/31/19 History cetirizine 10 mg PO DAILY PRN 12/29/18 08/31/19 History multivitamin [Daily-Deanne] 1 tab PO QPM #30 tab 01/18/19 08/31/19 Rx Spiriva with HandiHaler 1 cap INHALATION DAILY 01/31/19 08/31/19 History acetaminophen 650 mg PO Q6H PRN 01/31/19 08/31/19 History furosemide 20 mg tablet 20 mg PO DAILY #10 tab 08/27/19 08/31/19 Rx potassium chloride 10 mEq 10 meq PO DAILY 10 Days #10 tab 08/27/19 08/31/19 Rx tablet,extended release propranolol 10 mg tablet 15 mg PO BID #45 tab 08/27/19 08/31/19 Rx Allergies Allergy/AdvReac Type Severity Reaction Status Date / Time erythromycin base Allergy Unknown Unknown Verified 08/31/19 19:59 Penicillins Allergy Unknown Unknown Verified 08/31/19 19:59 NITRATES IN PROCESSED MEATS Allergy Severe Difficulty Uncoded 08/31/19 19:59 Breathing Past Med/Surg History Medical History Abdominal mass removed at [facility] - he cannot recall details; he was in 3rd grade Avascular necrosis of hip right COPD (chronic obstructive pulmonary disease) (Chronic) Elevated troponin GI bleed Surgical History Hx of appendectomy Family History Father Hairy cell leukemia Mother Multiple myeloma Social History Preferred Language: Cymro Communication Ability: Effective Brush Stainer Required: No Beliefs That Will Affect Care: None marital status: Single marital status details: no children Current Living Situation: Spouse Current Living Situation Comment: lives in [place] by himself current occupational status: disabled other: 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 Feels Safe at Home: Yes Smoking Status: Current every day smoker Tobacco Type: cigarettes ; Age Started Using Tobacco: 16 ; packs per day: 1 ; Cigarettes Per Day: 20 ; Hx Alcohol Use: Yes Alcohol type: beer Alcohol Intake Frequency: Daily Alcohol Intake Frequency Comment: 4-6 beers/day Hx Substance Use: No Review of Systems A total of 10 systems reviewed and were otherwise negative Physical Exam Vital Signs Vital Signs - 24 hr 08/31/19 19:24 08/31/19 20:40 08/31/19 20:45 Temperature 36.5 C Temperature Source Oral Pulse Rate 68 74 Pulse Rate from SpO2 Sensor 74 Pulse Rhythm Regular Respiratory Rate 18 20 Blood Pressure 144/87 H 141/89 H Blood Pressure Mean 106 99 Pulse Oximetry 99 100 100 Oxygen Delivery Method Room Air Non-rebreather Oxygen Flow Rate 15 Sepsis Recent Fever Within 48 Hours No Sepsis New/Unexplained Change in Mental Status No Sepsis Action Taken by Nursing No Action Required 08/31/19 21:00 Temperature Temperature Source Pulse Rate 74 Pulse Rate from SpO2 Sensor 77 Pulse Rhythm Respiratory Rate 20 Blood Pressure 128/82 Blood Pressure Mean 97 Pulse Oximetry 100 Oxygen Delivery Method Non-rebreather Oxygen Flow Rate 15 Sepsis Recent Fever Within 48 Hours Sepsis New/Unexplained Change in Mental Status Sepsis Action Taken by Nursing Physical Exam GENERAL: Disheveled, dirty and covered in his own filth and bugs. CV: Normal rate, regular rhythm, normal heart sounds and intact distal pulses. There is no peripheral edema. Palpable radial pulses bue. PULM/CHEST: Rhonchi bilaterally. Breath sounds bilaterally. ABD: The abdomen is soft. MUSC/SKEL: Deformity of the right hip and pain on palpation of the right hip. NEURO: He is alert and oriented to person, place, and time. He has normal strength. No cranial nerve deficit or sensory deficit. GCS eye subscore is 4. GCS verbal subscore is 5. GCS motor subscore is 6. Cerebellar tests wnl. Course Course 1919: The patient was evaluated in room A2. A complete history and physical exam was performed. EMR reviewed. Patient has a history of anemia, alcohol abuse, COPD, and parapneumonic effusion. 1924: X-ray shows right-sided hip fracture. Chest x-ray shows no pneumothorax. Patient will be taken to CT to rule out other traumatic injuries. 2014: Vital signs stable. Patient's oxygen saturation 99% on room air. Discussed with Dr. Larson, pulmonary/critical care about the patient's right apical pneumothorax seen on CT of the C-spine not initially evident on portable chest x-ray. I did discuss if Dr. Larson would be willing to be on consult for the patient if he is admitted to the medicine team for the right apical pneumothorax or if we should consider transferring the patient. He said he would be on. consult and there is no need to transfer at this time. He and I both agreed that there is no acute need for chest tube placement at this time as patient is in no respiratory distress, has an oxygen saturation of 99% on room air, and the pneumothorax appears very small. He does recommend placing the patient on a nonrebreather mask and to repeat the chest x-ray in 5 hours to make sure that there is no worsening of pneumothorax. 2049: Patient states he has seen [facility] in the past for his orthopedic issues. Discussed with Dr. Pastrana [facility] who agrees to be on consult and states patient should be admitted to medicine. 2129: Vital signs stable. Labs show leukocytosis 16.6. Sodium 123. Leukocy tosis is stable from previous lab work. Chest x-ray shows possible pneumonia. Patient was treated with IV antibiotics. Admitted to hospital service. [facility] hospitalist Dr. Green notified. Administered Medications Discontinued Medications Sodium Chloride (Nss 1000ml) 1,000 mls @ 999 mls/hr IV .Q1H1M ONE Stop: 08/31/19 20:09 Last Admin: 08/31/19 20:45 Dose: 999 mls/hr Documented by: [id number] Morphine Sulfate (Morphine Sulfate) 4 mg IV NOW STA Stop: 08/31/19 20:09 Last Admin: 08/31/19 20:45 Dose: 4 mg Documented by: [id number] Ondansetron HCl (Zofran) 4 mg IV NOW STA Stop: 08/31/19 20:09 Last Admin: 08/31/19 20:45 Dose: 4 mg Documented by: [id number] Medical Decision Making Laboratory Data Result diagrams: 08/31/19 20:31 08/31/19 20:31 Lab Results 08/31/19 08/31/19 08/31/19 Range/Units 20:31 20:31 20:31 WBC 16.16 H (4.8-10.8) K/uL RBC 4.45 L (4.7-6.1) M/uL Hgb 14.8 (14.0-18.0) g/dL Hct 41.4 L (42-52) % MCV 93.0 (80-100) fL MCH 33.3 (25-34) pg MCHC 35.7 (32-36) g/dL RDW Std Deviation 49.7 H (36.4-46.3) fL RDW Coeff of Jm 14.6 H (11.5-14.5) % Plt Count 302 (130-400) K/uL MPV 9.1 (7.4-10.4) fL Immature Gran % (Auto) 0.2 % Neut % (Auto) 88.9 % Lymph % (Auto) 6.0 % Buchanan % (Auto) 4.5 % Eos % (Auto) 0.2 % Baso % (Auto) 0.2 % Immature Gran # (Auto) 0.04 H (0.00-0.02) K/uL Neut # (Auto) 14.37 H (1.4-6.5) K/uL Lymph # (Auto) 0.97 L (1.2-3.4) K/uL Buchanan # (Auto) 0.72 H (0.11-0.59) K/uL Eos # (Auto) 0.03 (0-0.5) K/uL Baso # (Auto) 0.03 (0-0.2) K/uL PT 11.7 (9.0-12.0) Seconds INR 1.1 (0.9-1.1) APTT 31.6 H (21.0-31.0) Seconds PTT Ratio 1.1 Sodium 123 L (136-145) mmol/L Potassium 4.7 (3.5-5.1) mmol/L Chloride 91 L (98-107) mmol/L Carbon Dioxide 26 (21-32) mmol/L Anion Gap 6.0 (3-11) BUN 5 L (7-18) mg/dl Creatinine 0.46 L (0.6-1.4) mg/dl Est Cr Clr Drug Dosing 128.0 ml/min Est GFR ( Amer) 143.3 Est GFR (Non-Af Amer) 123.6 BUN/Creatinine Ratio 9.9 L (10-20) Glucose 83 (70-99) mg/dl Calcium 8.5 (8.5-10.1) mg/dl Total Creatine Kinase 184 (39-308) U/L Procalcitonin (0-0.5) ng/ml Urine Color Urine Appearance (Clear) Urine pH (4.5-7.5) Ur Specific Moro (1.000-1.030) Urine Protein (Negative) Urine Glucose (UA) (Negative) Urine Ketones (Negative) Urine Blood (Negative) Urine Nitrite (Negative) Urine Bilirubin (Negative) Urine Urobilinogen (Negative) Ur Leukocyte Esterase (Negative) Urine WBC (Auto) (0-5) /hpf Urine RBC (Auto) (0-4) /hpf U Hyaline Cast (Auto) (0-5) /lpf U Epithel Cells (Auto) (0-5) /lpf Urine Bacteria (Auto) (Negative) Ethyl Alcohol mg/dL (0-3) mg/dl Blood Type Antibody Screen 08/31/19 08/31/19 08/31/19 Range/Units 20:31 20:31 20:33 WBC (4.8-10.8) K/uL RBC (4.7-6.1) M/uL Hgb (14.0-18.0) g/dL Hct (42-52) % MCV (80-100) fL MCH (25-34) pg MCHC (32-36) g/dL RDW Std Deviation (36.4-46.3) fL RDW Coeff of Jm (11.5-14.5) % Plt Count (130-400) K/uL MPV (7.4-10.4) fL Immature Gran % (Auto) % Neut % (Auto) % Lymph % (Auto) % Buchanan % (Auto) % Eos % (Auto) % Baso % (Auto) % Immature Gran # (Auto) (0.00-0.02) K/uL Neut # (Auto) (1.4-6.5) K/uL Lymph # (Auto) (1.2-3.4) K/uL Buchanan # (Auto) (0.11-0.59) K/uL Eos # (Auto) (0-0.5) K/uL Baso # (Auto) (0-0.2) K/uL PT (9.0-12.0) Seconds INR (0.9-1.1) APTT (21.0-31.0) Seconds PTT Ratio Sodium (136-145) mmol/L Potassium (3.5-5.1) mmol/L Chloride (98-107) mmol/L Carbon Dioxide (21-32) mmol/L Anion Gap (3-11) BUN (7-18) mg/dl Creatinine (0.6-1.4) mg/dl Est Cr Clr Drug Dosing ml/min Est GFR ( Amer) Est GFR (Non-Af Amer) BUN/Creatinine Ratio (10-20) Glucose (70-99) mg/dl Calcium (8.5-10.1) mg/dl Total Creatine Kinase (39-308) U/L Procalcitonin < 0.05 (0-0.5) ng/ml Urine Color Urine Appearance (Clear) Urine pH (4.5-7.5) Ur Specific Moro (1.000-1.030) Urine Protein (Negative) Urine Glucose (UA) (Negative) Urine Ketones (Negative) Urine Blood (Negative) Urine Nitrite (Negative) Urine Bilirubin (Negative) Urine Urobilinogen (Negative) Ur Leukocyte Esterase (Negative) Urine WBC (Auto) (0-5) /hpf Urine RBC (Auto) (0-4) /hpf U Hyaline Cast (Auto) (0-5) /lpf U Epithel Cells (Auto) (0-5) /lpf Urine Bacteria (Auto) (Negative) Ethyl Alcohol mg/dL 12.9 H (0-3) mg/dl Blood Type O Positive Antibody Screen NEGATIVE 08/31/19 Range/Units 21:15 WBC (4.8-10.8) K/uL RBC (4.7-6.1) M/uL Hgb (14.0-18.0) g/dL Hct (42-52) % MCV (80-100) fL MCH (25-34) pg MCHC (32-36) g/dL RDW Std Deviation (36.4-46.3) fL RDW Coeff of Jm (11.5-14.5) % Plt Count (130-400) K/uL MPV (7.4-10.4) fL Immature Gran % (Auto) % Neut % (Auto) % Lymph % (Auto) % Buchanan % (Auto) % Eos % (Auto) % Baso % (Auto) % Immature Gran # (Auto) (0.00-0.02) K/uL Neut # (Auto) (1.4-6.5) K/uL Lymph # (Auto) (1.2-3.4) K/uL Buchanan # (Auto) (0.11-0.59) K/uL Eos # (Auto) (0-0.5) K/uL Baso # (Auto) (0-0.2) K/uL PT (9.0-12.0) Seconds INR (0.9-1.1) APTT (21.0-31.0) Seconds PTT Ratio Sodium (136-145) mmol/L Potassium (3.5-5.1) mmol/L Chloride (98-107) mmol/L Carbon Dioxide (21-32) mmol/L Anion Gap (3-11) BUN (7-18) mg/dl Creatinine (0.6-1.4) mg/dl Est Cr Clr Drug Dosing ml/min Est GFR ( Amer) Est GFR (Non-Af Amer) BUN/Creatinine Ratio (10-20) Glucose (70-99) mg/dl Calcium (8.5-10.1) mg/dl Total Creatine Kinase (39-308) U/L Procalcitonin (0-0.5) ng/ml Urine Color Yellow Urine Appearance Clear (Clear) Urine pH 5.5 (4.5-7.5) Ur Specific Moro 1.017 (1.000-1.030) Urine Protein Negative (Negative) Urine Glucose (UA) Negative (Negative) Urine Ketones 1+ H (Negative) Urine Blood 2+ H (Negative) Urine Nitrite Negative (Negative) Urine Bilirubin Negative (Negative) Urine Urobilinogen Negative (Negative) Ur Leukocyte Esterase Negative (Negative) Urine WBC (Auto) 1-5 (0-5) /hpf Urine RBC (Auto) 10-30 H (0-4) /hpf U Hyaline Cast (Auto) 1-5 (0-5) /lpf U Epithel Cells (Auto) 5-10 H (0-5) /lpf Urine Bacteria (Auto) Negative (Negative) Ethyl Alcohol mg/dL (0-3) mg/dl Blood Type Antibody Screen Imaging Data Radiologist's Impression: SINGLE VIEW PELVIS CLINICAL HISTORY: Fall. FINDINGS: An AP, portable, supine pelvic radiograph is compared to study dated 07/30/2015 and correlated with pelvic CT dated 11/06/2018. The examination is degraded by patient rotation. The skeletal structures are heterogeneously osteopenic. There is a slightly distracted intertrochanteric fracture of the right femur with overlying soft tissue edema. The bony pelvis and left hip appear intact. There is flattening/deformity of the right femoral head. Degenerative joint space narrowing is seen in both hips, right greater than left. The sacroiliac joints are normal as imaged. There is no evidence of bowel obstruction. Phleboliths are observed in the pelvis. IMPRESSION: Mildly distracted intertrochanteric fracture of the right femur. Electronically signed by: Dru Akbar M.D. 08/31/2019 7:45 PM Dictated: 08/31/191942 Transcribed: 08/31/191942 CT SCAN OF THE BRAIN WITHOUT IV CONTRAST CLINICAL HISTORY: Falls. COMPARISON STUDY: CT of the brain dated 12/15/2009. TECHNIQUE: Unenhanced axial CT scan of the brain is performed from the vertex to the skull base. A dose lowering technique was utilized adhering to the principles of ALARA. CT DOSE: 935.47 mGy.cm FINDINGS: Brain parenchyma: There is age advanced involutional change noting mild subcortical and periventricular microangiopathic change. There is no hemorrhage, mass effect, or evidence of acute territorial ischemia by CT criteria. Tobar- white matter differentiation is preserved. No extra-axial fluid collection is seen. Ventricles, sulci, cisterns: Prominent secondary to involutional change. Intracranial vasculature: There is atherosclerotic calcification of the ca vernous carotid and vertebral arteries. Calvarium: The skeletal structures are osteopenic. No depressed calvarial fracture is identified. Sinuses and mastoids: The visualized paranasal sinuses are clear. The mastoid air cells are well pneumatized. Orbits: The bony orbits are grossly intact. IMPRESSION: There is no hemorrhage, mass effect, or evidence of acute territorial ischemia by CT criteria. ACT 112: Negative or not required by law. Electronically signed by: Dru Akbar M.D. 08/31/2019 7:56 PM Dictated: 08/31/191953 Transcribed: 08/31/191953 ADDENDUM ADDENDUM: In addition to the above findings there is a small right apical pneumothorax. Electronically signed by: Dru Akbar M.D. 08/31/2019 8:02 PM ADDENDUM END SINGLE VIEW CHEST CLINICAL HISTORY: Falls. FINDINGS: 2 AP, portable, supine chest radiographs are compared to study dated 04/23/2019 and correlated with chest CT dated 03/09/2019. The examination is degraded by portable technique and patient rotation. The cardiomediastinal silhouette is unremarkable noting atherosclerotic calcification of the thoracic aorta. Emphysema and chronic interstitial thickening are similar to previous. There is increasing right upper lobe consolidative change as compared to 2018. No large pleural effusion or pneumothorax is seen. The skeletal structures are osteopenic. There are healed left-sided rib fractures. IMPRESSION: 1. There is increasing right upper lobe airspace consolidation as compared to the 04/23/2019 examination. Correlate clinically for evidence of an i nfectious/inflammatory pneumonitis. 2. Emphysema. ACT 112: Negative or not required by law. Electronically signed by: Dru Akbar M.D. 08/31/2019 7:48 PM Dictated: 08/31/191944 Transcribed: 08/31/191944 CT SCAN OF THE CERVICAL SPINE CLINICAL HISTORY: Falls. COMPARISON STUDY: CT of the cervical spine dated 12/15/2009. TECHNIQUE: CT scan of the cervical spine is performed from the skull base to the upper thoracic spine. Images are reviewed in the axial, sagittal, and coronal planes. IV contrast was not administered for this examination. A dose lowering technique was utilized adhering to the principles of ALARA. FINDINGS: Skeletal structures: The skeletal structures are osteopenic. There is no evidence of fracture or subluxation involving the cervical spine. Vertebral body height is maintained. There is minimal retrolisthesis at C5-C6. Alignment is otherwise preserved. There is straightening of the cervical lordosis with mild reversal centered at C5. Small anterior osteophytes are noted in the lower cervical spine. The odontoid process and lateral masses are intact. The atlantoaxial articulation is preserved noting productive degenerative change. The spinous processes appear intact. Mild uncovertebral and facet arthropathy are noted throughout the cervical spine. Intervertebral discs: There is moderate to advanced disc space narrowing seen at C5-C6 and C6-C7. Mild to moderate disc space narrowing is noted at the remaining cervical levels. Central canal: Small posterior disc osteophyte complexes for C3-C4 through C6-C7 likely contribute to mild multilevel acquired compromise of the central canal. Soft tissues: The prevertebral and paraspinous soft tissues are within normal limits. There is advanced atherosclerotic calcification of the carotid bulbs. Calvarium: The visualized calvarium at the skull base appears intact. Brain parenchyma: Partially visualized brain parenchyma the skull base is within normal limits. Sinuses and mastoids: The visualized paranasal sinuses are clear. The mastoid air cells are well pneumatized. Lung apices: Emphysematous change is noted. There is a small right apical pneumothorax. Scarring is noted at the right apex. IMPRESSION: 1. There is no evidence of fracture or subluxation involving the cervical spine. 2. Osteopenia and spondylotic change as above. 3. Small right apical pneumothorax. 4. Emphysema. ACT 112: Negative or not required by law. Electronically signed by: Dru Akbar M.D. 08/31/2019 8:02 PM Dictated: 08/31/191956 Transcribed: 08/31/191956 CT SCAN OF THE ABDOMEN AND PELVIS WITHOUT IV CONTRAST CLINICAL HISTORY: Falls. COMPARISON STUDY: Abdominal CT dated 11/06/2018. Pelvic radiographs dated 08/31/2019. TECHNIQUE: CT scan of the abdomen and pelvis is performed from the lung bases to the proximal femora. Images are reviewed in the axial, sagittal, and coronal planes. IV contrast was not administered for this examination as per the referring clinician. Note that the examination was performed in significantly suboptimal fashion without IV contrast. The examination is also degraded by streak artifact from the arms which could not be elevated above the abdomen. A dose lowering technique was utilized adhering to the principles of ALARA. CT DOSE: 233.26 mGy.cm FINDINGS: Lung bases: The heart is normal in size and without pericardial effusion. The c oronary arteries are densely calcified. Emphysematous change is noted at the lung bases. There is trace right pleural effusion. Proximal scarring is noted at the right lung base. No airspace consolidation is seen typical for pneumonia. Liver: The unenhanced liver is normal in size, contour, and attenuation. There is no intrahepatic biliary ductal dilatation. Gallbladder: Unremarkable. Spleen: Normal in size and attenuation. Pancreas: The unenhanced pancreas is grossly unremarkable. Adrenal glands: Unremarkable. Kidneys: The unenhanced kidneys demonstrate mild cortical atrophy and are wit hout hydronephrosis. There are no renal calculi identified. A 1.3 cm cyst is noted in the left upper pole. Abdominal vasculature: The abdominal aorta is normal in course and caliber noting advanced atherosclerotic calcification. Bowel: There is no bowel obstruction. The appendix is not clearly identified. Peritoneum: There is no intraperitoneal free air or abdominal ascites. Lymphadenopathy: None. Pelvic viscera: The prostate gland is mildly enlarged and heterogeneous. The bladder is normal as visualized. There are small bilateral inguinal hernias. The left ovary contains a small segment of bowel. Skeletal structures: There is a comminuted and mildly displaced intertrochanteric fracture of the right femur. Small distracted fragments are noted. Mild surrounding hemorrhage is noted. No additional fracture is identified. There is advanced avascular necrosis on the right, with flattening, sclerosis, and subchondral collapse of the right femoral head. Milder avascular necrosis is noted in the left femoral head. Advanced arthritic change with flattening and destruction of the right femoral head are noted. There is No lytic or blastic lesions are seen. IMPRESSION: 1. Suboptimal examination without IV contrast. The examination is also degraded by streak artifact. 2. There is no evidence of solid organ injury in the abdomen or pelvis on this unenhanced examination. 3. There is a mildly displaced intertrochanteric fracture of the right femur as above. 4. Findings are consistent with avascular necrosis of the proximal femora bilaterally, right significantly worse than left. 5. Emphysema and trace right pleural effusion. 6. There are small bilateral inguinal hernias. The left inguinal hernia contains a small segment of bowel. 7. Additional findings as above. ACT 112: Negative or not required by law. [facility] Narrative 1920: The patient was evaluated in room A2. A complete history and physical exam was performed. EMR reviewed. Patient has a history of anemia, alcohol abuse, COPD, and parapneumonic effusion. 1925: X-ray shows right-sided hip fracture. Chest x-ray shows no pneumothorax. Patient will be taken to CT to rule out other traumatic injuries. 2014: Vital signs stable. Patient's oxygen saturation 99% on room air. Discussed with Dr. Larson, pulmonary/critical care about the patient's right apical pneumothorax seen on CT of the C-spine not initially evident on portable chest x-ray. I did discuss if Dr. Larson would be willing to be on consult for the patient if he is admitted to the medicine team for the right apical pneumothorax or if we should consider transferring the patient. He said he would be on. consult and there is no need to transfer at this time. He and I both agreed that there is no acute need for chest tube placement at this time as patient is in no respiratory distress, has an oxygen saturation of 99% on room air, and the pneumothorax appears very small. He does recommend placing the patient on a nonrebreather mask and to repeat the chest x-ray in 5 hours to make sure that there is no worsening of pneumothorax. 2049: Patient states he has seen [facility] in the past for his orthopedic issues. Discussed with Dr. Pastrana [facility] who agrees to be on consult and states patient should be admitted to medicine. 2129: Vital signs stable. Labs show leukocytosis 16.6. Sodium 123. Leukocytosis is stable from previous lab work. Chest x-ray shows possible pneumonia. Patient was treated with IV antibiotics. Admitted to hospital [facility]. [facility] hospitalist Dr. Green notified. Impression & Plan Intertrochanteric fracture of femur, Alcohol abuse, Pneumothorax on right Discharge Plan Visit Data Chief Complaint: Fall Stated Complaint: FALL, R HIP PAIN ED Provider: Darrell Garcia Discharge Problem: Intertrochanteric fracture of femur, Alcohol abuse, Pneumothorax on right Patient Disposition: Admitted As Inpatient Forms Stand Alone Forms: My [facility] [employer] Prescriptions Prescriptions: No Action propranolol 10 mg tablet 15 mg PO BID Qty: 45 RF: 1 furosemide [Lasix] 20 mg tablet 20 mg PO DAILY Qty: 10 RF: 0 potassium chloride [Klor-Con 10] 10 mEq tablet extended release 10 meq PO DAILY 10 Days Qty: 10 RF: 0 Spiriva with HandiHaler 18 mcg Capsule, W/Inhalation Device 1 cap INHALATION DAILY RF: 0 acetaminophen 325 mg Tablet 650 mg PO Q6H PRN (Reason: pain/temp over 101) RF: 0 albuterol sulfate [Ventolin HFA] 90 mcg/actuation HFA aerosol inhaler 1 - 2 puff inhalation .Q4-6HRS PRN (Reason: Shortness Of Breath Or Wheezing) RF: 0 cetirizine 10 mg tablet 10 mg PO DAILY PRN (Reason: Allergy Symptoms) RF: 0 multivitamin [Daily-Deanne] Tablet 1 tab PO QPM Qty: 30 RF: 0 Referrals Referrals: PT,DECLINED [Primary Care Provider] - Discharge Problem: Intertrochanteric fracture of femur Qualifiers: Encounter type: initial encounter Fracture type: closed Fracture alignment: nondisplaced Laterality: right Qualified Code(s): S72.144A - Nondisplaced intertrochanteric fracture of right femur, initial encounter for closed fracture
[2019-08-31 20:40] LABS: Basophils # (auto) 0.03 K/uL (0-0.2); Basophils % (auto) 0.2 %; Eosinophils # (auto) 0.03 K/uL (0-0.5); Eosinophils % (auto) 0.2 %; Hematocrit (blood only) 41.4 % (42-52); Hemoglobin 14.8 g/dL (14.0-18.0); Immature Granulocytes # (auto) 0.04 K/uL (0.00-0.02); Immature Granulocytes % (auto) 0.2 %; Lymphocytes # (auto) 0.97 K/uL (1.2-3.4); Mean Corpuscular Hemoglobin 33.3 pg (25-34); Mean Corpuscular Hgb Conc 35.7 g/dL (32-36); Mean Platelet Volume 9.1 fL (7.4-10.4); Monocytes # (auto) 0.72 K/uL (0.11-0.59); Monocytes % (auto) 4.5 %; Neutrophils # (auto) 14.37 K/uL (1.4-6.5); Neutrophils % (auto) 88.9 %; Platelet Count 302 K/uL (130-400); RDW Coefficient of Variation 14.6 % (11.5-14.5); RDW Standard Deviation 49.7 fL (36.4-46.3); Red Blood Count 4.45 M/uL (4.7-6.1); White Blood Count 16.16 K/uL (4.8-10.8)
[2019-08-31 20:51] LABS: INR 1.1 (0.9-1.1); Partial Thromboplastin Ratio 1.1; Partial Thromboplastin Time 31.6 Seconds (21.0-31.0); Prothrombin Time 11.7 Seconds (9.0-12.0)
[2019-08-31 20:57] LABS: BUN Creatinine Ratio 9.9 (10-20); Calcium 8.5 mg/dl (8.5-10.1); Est GFR (African American) 143.3; Est GFR (Non-African American) 123.6; Potassium 4.7 mmol/L (3.5-5.1)
[2019-08-31 21:52] LABS: Appearance Urine Clear (Clear); Bacteria Urine Automated Negative (Negative); Bilirubin Urine Negative (Negative); Blood Urine 2+ (Negative); Color Urine Yellow; Glucose Urine UA Negative (Negative); Ketones Urine 1+ (Negative); Leukocyte Esterase Urine Negative (Negative); Nitrite Urine Negative (Negative); Protein Urine Negative (Negative); Specific Gravity Urine 1.017 (1.000-1.030); Urobilinogen Urine Negative (Negative); pH Urine 5.5 (4.5-7.5)
[2019-08-31] MEDS: LEVOFLOXACIN/D5W 750 MG/150 ML BAG IV SCH (21:55)
[2019-08-31] MEDS ORDERED: ONDANSETRON INJ 2 MG/ML 2 ML VIAL IV PRN (22:34)
[2019-08-31] MEDS ORDERED: LORazepam 1 MG TAB PO PRN (22:34)
--- NOTE | 2019-08-31 22:37 | History & Physical Report ---
Date of Service August 31, 2019 Assessment & Plan (1) Intertrochanteric fracture of femur: Patient is a 59-year-old male with a past medical history of congestive heart failure, COPD, cardiomyopathy, CAD, tobacco abuse, history of avascular necrosis of the right hip and alcohol abuse who presents today for evaluation of a traumatic fall with associated right hip pain diagnosed with right hip intertrochanteric fracture with associated apical pneumothorax secondary to fall. #Intertrochanteric fracture of the femur Patient is well-known to [facility], emergency part department contacted them, they wish to be consulted on this patient. Will provide adequate pain control and consult orthopedics. Adequate blood flow and sensation of leg -Morphine 2mg every 2 hours as needed -[facility]ult [facility] Monitor for the development of neurovascular symptoms #Ethanol abuse Patient with a longstanding history of alcohol abuse currently endorsing drinking 1-2 sixpacks per day. He has a report a day history of experiencing alcohol withdrawal we will place him on AWSS. -ENEDELIA is ordered -Monitor for signs and symptoms of alcohol withdrawal -We will provide banana bag #Pneumothorax on the right Imaging identified a pneumothorax in the patient's right side. The pulmo nologist was alerted to this. No acute need for chest tube placement he recommended repeating a chest x-ray in 5 hours, and placing the patient on nonrebreather mask in the interim. -Monitor for now -Continue O2 therapy -Consult pulmonology -Repeat chest x-ray #Chronic systolic CHF Not in acute exacerbation at present -Continue home furosemide 20 mg p.o. daily -Continue propanolol #COPD With CT findings of emphysema, long history of, on Spiriva at home. Does not appear to be in exacerbation however some questionable findings of pneumonia. -Continue Spiriva -Continue albuterol as needed -Continue sertraline as needed -PRN duo nebs every 4 hours #Questionable pneumonia Labs consistent with leukocytosis of 16.6 however this is stable from previous lab work chest x-ray consistent with possible pneumonia. We will continue IV antibiotics -Continue Levaquin #Tobacco dependence -Patient provided with nicotine replacement therapy #Malnutrition Patient appears malnourished on presentation, will obtain CMP to further categorize. In the interim request dietary consultation. -Consult dietitian -Follow-up B12 -Follow-up folate #Discharge planning Per report patient presented to the hospital covered in his own filth and bugs. Will need case management's assistance in making sure this patient has a safe environment to be discharged to. FENa: Will make n.p.o. Code Status: Full code DVT PPX: Contraindicated in the event of surgery PT/OT: We will need after surgery Dispo: Hai Plunkett MD PGY 2, FCM This chart was completed utilizing Parseation voice recognition software. Grammatical errors, random word insertions, pronoun errors, and in complete sentences are an occasional consequence of the system. Any questions or concerns about the content, text, or information contained within the body of this dictation should be addressed directly to the physician for clarification. (2) Anemia: (3) ETOH abuse: (4) Chronic systolic CHF (congestive heart failure): (5) COPD (chronic obstructive pulmonary disease): (6) Pneumothorax on right: (7) Severe protein-calorie malnutrition: (8) Pneumonia involving right lung: (9) Tobacco dependence: (10) Pneumonia: History of Present Illness Patient is a 59-year-old male with a past medical history of congestive heart failure, COPD, cardiomyopathy, CAD, tobacco abuse, history of avascular necrosis of the right hip and alcohol abuse who presents today for evaluation of a traumatic fall with associated right hip pain. Patient has not followed up with his PCP recently, says that he is not going to his PCP for care of his chronic conditions secondary to the current coronavirus. Patient was in his normal state of health this morning when he went out to get a package in his front door, he turned around and experienced a fall at this was approximately 9:30 AM. He laid on the ground until his girlfriend came home later that day. He was brought to the emergency department he appeared disheveled at that time, there was gnats on his clothing, nursing cleaned him out prior to my evaluation. Per report the emergency department had discussed the patient with Dr. paige as imaging had demonstrated a an incidental apical pneumothorax he recommended placing the patient on a nonrebreather mask and repeat this chest x-ray in 5 hours to make sure there is no worsening of the pneumothorax. Patient is familiar to [facility], the emergency department discussed the case with them and they agree for consultation. Primary team was consulted for admission The patient denies any recent fevers, chills, nausea, vomiting, diarrhea, endorsing intermittent chest pain and right hip pain, denying significant shortness of breath, he reports he drinks approximately 1-2 sixpacks per day, says he is experienced alcohol withdrawal in the past. He does not currently think that he would go through withdrawal. Review of x-rays demonstrates a right-sided hip fracture, head CT negative, C-spine CT negative with exception of osteopenia and spondylitic changes in the right apical pneumothorax. Bilateral inguinal hernias on CT abdomen pelvis. Primary Care Provider: PT DECLINED Allergies Allergy/AdvReac Type Severity Reaction Status Date / Time erythromycin base Allergy Unknown Unknown Verified 08/31/19 19:59 Penicillins Allergy Unknown Unknown Verified 08/31/19 19:59 NITRATES IN PROCESSED MEATS Allergy Severe Difficulty Uncoded 08/31/19 19:59 Breathing Home Medications Home Medications Medication Instructions Recorded Confirmed Type albuterol sulfate [Ventolin HFA] 1 - 2 puff INHALATION .Q4-6HRS PRN 12/29/18 08/31/19 History cetirizine 10 mg PO DAILY PRN 12/29/18 08/31/19 History multivitamin [Daily-Deanne] 1 tab PO QPM #30 tab 01/18/19 08/31/19 Rx Spiriva with HandiHaler 1 cap INHALATION DAILY 01/31/19 08/31/19 History acetaminophen 650 mg PO Q6H PRN 01/31/19 08/31/19 History furosemide 20 mg tablet 20 mg PO DAILY #10 tab 08/27/19 08/31/19 Rx potassium chloride 10 mEq 10 meq PO DAILY 10 Days #10 tab 08/27/19 08/31/19 Rx tablet,extended release propranolol 10 mg tablet 15 mg PO BID #45 tab 08/27/19 08/31/19 Rx Past Med/Surg History Medical History Abdominal mass removed at [facility] - he cannot recall details; he was in 3rd grade Avascular necrosis of hip right COPD (chronic obstructive pulmonary disease) (Chronic) Elevated troponin GI bleed Surgical History Hx of appendectomy Family History Father Hairy cell leukemia Mother Multiple myeloma Social History Preferred Language: Icelandic Communication Ability: Effective Nurse Aide Required: No Beliefs That Will Affect Care: None marital status: Single marital status details: no children Current Living Situation: Spouse Current Living Situation Comment: lives in [place] by himself current occupational status: disabled Other Information That Helps Us Care for You: No other: 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 Feels Safe at Home: Yes Safety Concerns: Feels Safe At This Time Smoking Status: Current every day smoker Tobacco Type: cigarettes ; Age Started Using Tobacco: 16 ; packs per day: 1 ; Cigarettes Per Day: 30 ; Do You Dip or Chew Tobacco: No ; Second Hand Exposure: Yes ; Tobacco Cessation Education Requested by Patient: No Hx Alcohol Use: Yes (last drink around 1700 08/31/2019) Alcohol type: beer Alcohol Intake Frequency: Daily Alcohol Intake Frequency Comment: 4-6 beers/day Hx Substance Use: No Review of Systems Review of Systems: All systems reviewed & are unremarkable except as noted in HPI & below Physical Exam Physical Exam: General: Disheveled appearing male appearing older than his stated age HEENT: Normocephalic atraumatic poor dentition Neck: Normal to visual inspection, trachea midline, did not appreciate JVD Cardiac: Regular rate and rhythm I did not appreciate any significant murmurs rubs or gallops, normal S1, normal S2, did not appreciate significant peripheral edema, denied calf tenderness Respiratory: Rhonchi present bilaterally otherwise clear to auscultation, symmetrical chest expansion GI: Soft, nontender, nondistended MSK: Deformity of the right hip Skin: Numerous bruises Neuro: Alert and oriented x4 no defects Psych: Cooperative Results & Data Results & Data ([facility]) Vital Signs (Past 12 Hours) Vital Signs Temp Pulse Resp BP Pulse Ox 08/31/19 22:02 70 19 148/90 H 100 08/31/19 21:00 74 20 128/82 100 08/31/19 20:45 74 20 141/89 H 100 08/31/19 20:40 100 08/31/19 19:24 36.5 C 68 18 144/87 H 99 Laboratory Results 08/31/19 08/31/19 08/31/19 Range/Units 21:15 20:33 20:31 WBC (4.8-10.8) K/uL RBC (4.7-6.1) M/uL Hgb (14.0-18.0) g/dL Hct (42-52) % MCV (80-100) fL MCH (25-34) pg MCHC (32-36) g/dL RDW Std Deviation (36.4-46.3) fL RDW Coeff of Jm (11.5-14.5) % Plt Count (130-400) K/uL MPV (7.4-10.4) fL Immature Gran % (Auto) % Neut % (Auto) % Lymph % (Auto) % Platte % (Auto) % Eos % (Auto) % Baso % (Auto) % Immature Gran # (Auto) (0.00-0.02) K/uL Neut # (Auto) (1.4-6.5) K/uL Lymph # (Auto) (1.2-3.4) K/uL Platte # (Auto) (0.11-0.59) K/uL Eos # (Auto) (0-0.5) K/uL Baso # (Auto) (0-0.2) K/uL PT (9.0-12.0) Seconds INR (0.9-1.1) APTT (21.0-31.0) Seconds PTT Ratio Sodium (136-145) mmol/L Potassium (3.5-5.1) mmol/L Chloride (98-107) mmol/L Carbon Dioxide (21-32) mmol/L Anion Gap (3-11) BUN (7-18) mg/dl Creatinine (0.6-1.4) mg/dl Est Cr Clr Drug Dosing ml/min Est GFR ( Amer) Est GFR (Non-Af Amer) BUN/Creatinine Ratio (10-20) Glucose (70-99) mg/dl Calcium (8.5-10.1) mg/dl Total Creatine Kinase (39-308) U/L Procalcitonin < 0.05 (0-0.5) ng/ml Urine Color Yellow Urine Appearance Clear (Clear) Urine pH 5.5 (4.5-7.5) Ur Specific Skippers 1.017 (1.000-1.030) Urine Protein Negative (Negative) Urine Glucose (UA) Negative (Negative) Urine Ketones 1+ H (Negative) Urine Blood 2+ H (Negative) Urine Nitrite Negative (Negative) Urine Bilirubin Negative (Negative) Urine Urobilinogen Negative (Negative) Ur Leukocyte Esterase Negative (Negative) Urine WBC (Auto) 1-5 (0-5) /hpf Urine RBC (Auto) 10-30 H (0-4) /hpf U Hyaline Cast (Auto) 1-5 (0-5) /lpf U Epithel Cells (Auto) 5-10 H (0-5) /lpf Urine Bacteria (Auto) Negative (Negative) Ethyl Alcohol mg/dL (0-3) mg/dl Blood Type O Positive Antibody Screen NEGATIVE 08/31/19 08/31/19 08/31/19 Range/Units 20:31 20:31 20:31 WBC (4.8-10.8) K/uL RBC (4.7-6.1) M/uL Hgb (14.0-18.0) g/dL Hct (42-52) % MCV (80-100) fL MCH (25-34) pg MCHC (32-36) g/dL RDW Std Deviation (36.4-46.3) fL RDW Coeff of Jm (11.5-14.5) % Plt Count (130-400) K/uL MPV (7.4-10.4) fL Immature Gran % (Auto) % Neut % (Auto) % Lymph % (Auto) % Platte % (Auto) % Eos % (Auto) % Baso % (Auto) % Immature Gran # (Auto) (0.00-0.02) K/uL Neut # (Auto) (1.4-6.5) K/uL Lymph # (Auto) (1.2-3.4) K/uL Platte # (Auto) (0.11-0.59) K/uL Eos # (Auto) (0-0.5) K/uL Baso # (Auto) (0-0.2) K/uL PT 11.7 (9.0-12.0) Seconds INR 1.1 (0.9-1.1) APTT 31.6 H (21.0-31.0) Seconds PTT Ratio 1.1 Sodium 123 L (136-145) mmol/L Potassium 4.7 (3.5-5.1) mmol/L Chloride 91 L (98-107) mmol/L Carbon Dioxide 26 (21-32) mmol/L Anion Gap 6.0 (3-11) BUN 5 L (7-18) mg/dl Creatinine 0.46 L (0.6-1.4) mg/dl Est Cr Clr Drug Dosing 128.0 ml/min Est GFR ( Amer) 143.3 Est GFR (Non-Af Amer) 123.6 BUN/Creatinine Ratio 9.9 L (10-20) Glucose 83 (70-99) mg/dl Calcium 8.5 (8.5-10.1) mg/dl Total Creatine Kinase 184 (39-308) U/L Procalcitonin (0-0.5) ng/ml Urine Color Urine Appearance (Clear) Urine pH (4.5-7.5) Ur Specific Skippers (1.000-1.030) Urine Protein (Negative) Urine Glucose (UA) (Negative) Urine Ketones (Negative) Urine Blood (Negative) Urine Nitrite (Negative) Urine Bilirubin (Negative) Urine Urobilinogen (Negative) Ur Leukocyte Esterase (Negative) Urine WBC (Auto) (0-5) /hpf Urine RBC (Auto) (0-4) /hpf U Hyaline Cast (Auto) (0-5) /lpf U Epithel Cells (Auto) (0-5) /lpf Urine Bacteria (Auto) (Negative) Ethyl Alcohol mg/dL 12.9 H (0-3) mg/dl Blood Type Antibody Screen 08/31/19 Range/Units 20:31 WBC 16.16 H (4.8-10.8) K/uL RBC 4.45 L (4.7-6.1) M/uL Hgb 14.8 (14.0-18.0) g/dL Hct 41.4 L (42-52) % MCV 93.0 (80-100) fL MCH 33.3 (25-34) pg MCHC 35.7 (32-36) g/dL RDW Std Deviation 49.7 H (36.4-46.3) fL RDW Coeff of Jm 14.6 H (11.5-14.5) % Plt Count 302 (130-400) K/uL MPV 9.1 (7.4-10.4) fL Immature Gran % (Auto) 0.2 % Neut % (Auto) 88.9 % Lymph % (Auto) 6.0 % Platte % (Auto) 4.5 % Eos % (Auto) 0.2 % Baso % (Auto) 0.2 % Immature Gran # (Auto) 0.04 H (0.00-0.02) K/uL Neut # (Auto) 14.37 H (1.4-6.5) K/uL Lymph # (Auto) 0.97 L (1.2-3.4) K/uL Platte # (Auto) 0.72 H (0.11-0.59) K/uL Eos # (Auto) 0.03 (0-0.5) K/uL Baso # (Auto) 0.03 (0-0.2) K/uL PT (9.0-12.0) Seconds INR (0.9-1.1) APTT (21.0-31.0) Seconds PTT Ratio Sodium (136-145) mmol/L Potassium (3.5-5.1) mmol/L Chloride (98-107) mmol/L Carbon Dioxide (21-32) mmol/L Anion Gap (3-11) BUN (7-18) mg/dl Creatinine (0.6-1.4) mg/dl Est Cr Clr Drug Dosing ml/min Est GFR ( Amer) Est GFR (Non-Af Amer) BUN/Creatinine Ratio (10-20) Glucose (70-99) mg/dl Calcium (8.5-10.1) mg/dl Total Creatine Kinase (39-308) U/L Procalcitonin (0-0.5) ng/ml Urine Color Urine Appearance (Clear) Urine pH (4.5-7.5) Ur Specific Skippers (1.000-1.030) Urine Protein (Negative) Urine Glucose (UA) (Negative) Urine Ketones (Negative) Urine Blood (Negative) Urine Nitrite (Negative) Urine Bilirubin (Negative) Urine Urobilinogen (Negative) Ur Leukocyte Esterase (Negative) Urine WBC (Auto) (0-5) /hpf Urine RBC (Auto) (0-4) /hpf U Hyaline Cast (Auto) (0-5) /lpf U Epithel Cells (Auto) (0-5) /lpf Urine Bacteria (Auto) (Negative) Ethyl Alcohol mg/dL (0-3) mg/dl Blood Type Antibody Screen Medications Administered Current Inpatient Medications Levofloxacin/Dextrose (Levaquin/D5w) 750 mg in 150 mls @ 100 mls/hr IV Q24H [facility]; Protocol Stop: 09/07/19 20:59 Last Admin: 08/31/19 21:55 Dose: 100 mls/hr Documented by: Code Status & VTE Plan Code Status Full code VTE Prophylaxis Plan VTE Prophylaxis will be ordered: No Reason for no VTE drug order: Contraindicated Supervising Physician Co-Signing Physician Notes Attending addendum: I have physically seen this patient, have supervised the medical residents a ctivities, and agree with the H&P unless as otherwise noted. Assessment and Plan: Closed right intertrochanteric femoral fracture/bilateral avascular necrosis of femoral heads- NPO NSS at 80 mils per hour Morphine IV for pain control. [facility] familiar with and aware of patient. Alcohol abuse- AWSS protocol ordered. Banana bag IV Right pneumothorax- Pulmonology aware and will see patient in a.m. Follow serial x-rays. Remainder of orders and notations as noted. Resident Activity Tracking Resident Involvement: Resident Care Provided Care Provided: Adult Hospital Medicine (1) Intertrochanteric fracture of femur Encounter type: initial encounter Fracture alignment: nondisplaced Fracture type: closed Laterality: right Qualified Code(s): S72.144A - Nondisplaced intertrochanteric fracture of right femur, initial encounter for closed fracture
[2019-08-31] MEDS ORDERED: MoRPHine SULFATE 4 MG/ML 1 ML CARP\\VIAL IV PRN (22:39)
[2019-08-31] MEDS ORDERED: ALBUT/IPRATROP 3MG/0.5MG NEB 3 ML VIAL NEB PRN (22:39)
[2019-08-31] MEDS ORDERED: MoRPHine SULFATE 10 MG/ML CARP/VIAL IV PRN (22:39)
[2019-08-31] MEDS ORDERED: MoRPHine SULFATE 2 MG/ML CARP IV SCH (22:45)
[2019-08-31] MEDS ORDERED: CETIRIZINE HCL 10 MG TABLET PO PRN (23:48)
[2019-09-01] MEDS ORDERED: MULTI-VITAMIN INFUSION 10 ML, THIAMINE HCL 100 MG, FOLIC ACID 1 MG in SODIUM CHLORIDE 0... IV ONE
[2019-09-01] MEDS: PROPRANOLOL HCL 10 MG TAB PO SCH ×3 (00:13→20:52)
[2019-09-01] MEDS: MoRPHine SULFATE 2 MG/ML CARP IV PRN ×7 (00:13→20:57)
[2019-09-01 06:04] LABS: Basophils # (auto) 0.02 K/uL (0-0.2); Basophils % (auto) 0.1 %; Eosinophils # (auto) 0.02 K/uL (0-0.5); Eosinophils % (auto) 0.1 %; Hematocrit (blood only) 43.2 % (42-52); Hemoglobin 14.9 g/dL (14.0-18.0); Immature Granulocytes # (auto) 0.04 K/uL (0.00-0.02); Immature Granulocytes % (auto) 0.3 %; Lymphocytes # (auto) 1.11 K/uL (1.2-3.4); Mean Corpuscular Hemoglobin 32.6 pg (25-34); Mean Corpuscular Hgb Conc 34.5 g/dL (32-36); Mean Corpuscular Volume 94.5 fL (80-100); Mean Platelet Volume 9.4 fL (7.4-10.4); Monocytes # (auto) 0.93 K/uL (0.11-0.59); Monocytes % (auto) 5.9 %; Neutrophils # (auto) 13.68 K/uL (1.4-6.5); Neutrophils % (auto) 86.6 %; Platelet Count 326 K/uL (130-400); RDW Coefficient of Variation 14.9 % (11.5-14.5); RDW Standard Deviation 51.2 fL (36.4-46.3); Red Blood Count 4.57 M/uL (4.7-6.1)
[2019-09-01 06:35] LABS: Albumin Level 2.4 gm/dl (3.4-5.0); BUN Creatinine Ratio 9.2 (10-20); Calcium 8.4 mg/dl (8.5-10.1); Creatinine Clr Calc Pharmacy 128.2 ml/min; Est GFR (African American) 143.3; Est GFR (Non-African American) 123.6; Potassium 4.8 mmol/L (3.5-5.1)
[2019-09-01 06:38] LABS: Albumin Globulin Ratio 0.6 (0.9-2); Bilirubin,Total 0.9 mg/dl (0.2-1); Globulin 3.7 gm/dl (2.5-4.0); Total Protein 6.1 gm/dl (6.4-8.2)
[2019-09-01] MEDS: POLYETHYLENE (MIRALAX) 17 GM PACK PO SCH ×2 (07:54→20:48)
[2019-09-01] MEDS: UMECLIDINIUM BROMIDE 62.5MCG/BLISTER 7 PUFFS/INHALER INH SCH (07:55)
[2019-09-01] MEDS: FOLIC ACID 1 MG TAB PO SCH (07:57)
[2019-09-01] MEDS: POTASSIUM CHLORIDE 10 MEQ TABCR PO SCH (07:58)
[2019-09-01] MEDS: FUROSEMIDE 20 MG TAB PO SCH (07:59)
[2019-09-01] MEDS: NICOTINE 14 MG/24 HR PATCH TD SCH (08:15)
--- NOTE | 2019-09-01 08:52 | XRay Report ---
XR chest inspiration/expiratio HISTORY: 59 years-old Male Inspiratory and expiratory. F/u pneumo follow-up study in a patient with small right apical pneumothorax COMPARISON: Chest radiograph 08/31/2019, chest CT 03/09/2019 TECHNIQUE: Inspiration and expiration views of the chest FINDINGS: Cardiomediastinal and hilar silhouettes are unchanged. Tiny right apical pneumothorax is unchanged wi th inspiration and expiration, pleural separation of approximately 5 mm. Emphysema. Masslike irregula r consolidative opacity measuring 5.2 x 5.3 cm with central lucency redemonstrated. Mild right hemidi aphragmatic elevation. Blunting of the costophrenic angles with probable small right pleural effusion . Healed remote left-sided rib fractures. IMPRESSION: 1. Tiny right apical pneumothorax is unchanged with inspiration and expiration. 2. Masslike consolidative opacity measuring up to 5.3 cm with central cavitation is unchanged from ye ster's exam. 3. Emphysema. 4. Probable small right pleural effusion. ACT 112: Negative or not required by law. The above report was generated using voice recognition software. It may contain grammatical, syntax o r spelling errors. Electronically signed by: Joshua Alvarez M.D. 09/01/2019 8:50 AM
[2019-09-01] MEDS: ALBUTEROL HFA 8 GM INHALER INH PRN ×2 (09:36→13:55)
--- NOTE | 2019-09-01 09:56 | Orthopedic Consultation ---
Date of Consultation September 01, 2019 Assessment & Plan (1) Intertrochanteric fracture of femur: Right hip intertrochanteric fracture, AVN Multiple comorbidities as noted above. NWB for now. Currently NPO, Na+ and albumin low, Hx ETOH abuse. Will need troch nailing vs. KATERINA due to AVN per [facility], likely tomorrow. Will need medical clearance. Films and labs studies are reviewed. Patient shows increased risk for mortality given moderate to severe hyponatremia. We will discuss with the managing service plan for correction and clarification if the patient is an accepatable risk for surgery. Given the history of AVN of the hip, the preferred treatment is for calcar replacing total hip. I discussed with Dr. Tomlin , and he will tenatively place on the surgical schedule for tuesday, pending medical clearance. History of Present Illness Attending Physician: Rajeev Manning Kai History of Present Illness 59 yr old male sustained a fall in his home during the morning hours of 08/31/19. His girlfriend found him and transported to [facility] ED. Patient was diagnosed with a right hip intertroch fx and a history of AVN per CT, multiple medical issues as below, and incidental pneumothorax. Patient admitted by medicine for definitive care, ortho consulted for hip fracture. Allergies Allergy/AdvReac Type Severity Reaction Status Date / Time erythromycin base Allergy Unknown Unknown Verified 08/31/19 19:59 Penicillins Allergy Unknown Unknown Verified 08/31/19 19:59 NITRATES IN PROCESSED MEATS Allergy Severe Difficulty Uncoded 08/31/19 19:59 Breathing Home Medications Home Medications Medication Instructions Recorded Confirmed Type albuterol sulfate [Ventolin HFA] 1 - 2 puff INHALATION .Q4-6HRS PRN 12/29/18 08/31/19 History cetirizine 10 mg PO DAILY PRN 12/29/18 08/31/19 History multivitamin [Daily-Deanne] 1 tab PO QPM #30 tab 01/18/19 08/31/19 Rx Spiriva with HandiHaler 1 cap INHALATION DAILY 01/31/19 08/31/19 History acetaminophen 650 mg PO Q6H PRN 01/31/19 08/31/19 History furosemide 20 mg tablet 20 mg PO DAILY #10 tab 08/27/19 08/31/19 Rx potassium chloride 10 mEq 10 meq PO DAILY 10 Days #10 tab 08/27/19 08/31/19 Rx tablet,extended release propranolol 10 mg tablet 15 mg PO BID #45 tab 08/27/19 08/31/19 Rx Patient History Medical History Abdominal mass removed at [facility] - he cannot recall details; he was in 3rd grade Avascular necrosis of hip right COPD (chronic obstructive pulmonary disease) (Chronic) Elevated troponin GI bleed Surgical History Hx of appendectomy Family History Father Hairy cell leukemia Mother Multiple myeloma Social History Preferred Language: Belarusian Communication Ability: Effective Nursing Informatics Clinical Analyst Required: No Beliefs That Will Affect Care: None marital status: Single marital status details: no children Current Living Situation: Spouse Current Living Situation Comment: lives in [place] by himself current occupational status: disabled Other Information That Helps Us Care for You: No other: 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 Feels Safe at Home: Yes Safety Concerns: Feels Safe At This Time Smoking Status: Current every day smoker Tobacco Type: cigarettes ; Age Started Using Tobacco: 16 ; packs per day: 1 ; Cigarettes Per Day: 30 ; Do You Dip or Chew Tobacco: No ; Second Hand Exposure: Yes ; Tobacco Cessation Education Requested by Patient: No Hx Alcohol Use: Yes (last drink around 1700 08/31/2019) Alcohol type: beer Alcohol Intake Frequency: Daily Alcohol Intake Frequency Comment: 4-6 beers/day Hx Substance Use: No Review of Systems Review of Systems: All systems reviewed & are unremarkable except as noted in HPI & below Physical Exam Physical Exam: Right hip/ leg IR. Skin in tact. Toes mobile, N/V+. ROM right LE deferred. A&Ox3. Results & Data ([facility]) Vital Signs (Past 12 Hours) Vital Signs Temp Pulse Pulse Resp BP BP Pulse Ox 09/01/19 07:32 36.7 C 80 16 97/70 L 99 08/31/19 23:30 36.2 C L 80 18 138/94 99 08/31/19 23:00 80 16 113/80 97 08/31/19 22:31 84 20 110/87 100 08/31/19 22:02 70 19 148/90 H 100 (1) Intertrochanteric fracture of femur Encounter type: initial encounter Fracture alignment: nondisplaced Fracture type: closed Laterality: right Qualified Code(s): S72.144A - Nondisplaced intertrochanteric fracture of right femur, initial encounter for closed fracture
--- NOTE | 2019-09-01 10:08 | Electrocardiogram Report ---
Test Reason : Blood Pressure : / mmHG Vent. Rate : 072 BPM Atrial Rate : 072 BPM P-R Int : 132 ms QRS Dur : 082 ms QT Int : 408 ms P-R-T Axes : 081 068 125 degrees QTc Int : 446 ms Poor data quality, interpretation may be adversely affected Normal sinus rhythm Left atrial enlargement Low voltage QRS Nonspecific ST and T wave abnormality Abnormal ECG When compared with ECG of 31-JAN-2019 23:03, T wave inversion no longer evident in Anterior leads Confirmed by Joesph Mantilla ([id number]) on 09/01/2019 10:07:39 AM Referred By: REFERRED SELF Confirmed By:Joesph Mantilla
--- NOTE | 2019-09-01 11:59 | XRay Report ---
XR femur RT 2V routine HISTORY: 59 years-old Male hip fracture follow-up study in a patient with acute right hip fracture COMPARISON: CT abdomen and pelvis and radiographs of the pelvis 08/31/2019. TECHNIQUE: 2 views of the right femur FINDINGS: There is an acute comminuted fracture of the intertrochanteric right femur with mild apex angulation superior lateral. Additionally, there is a fracture extending into the base of the lesser trochanter and medial cortex of the proximal femoral shaft which is displaced medially approximately 1.4 cm and extends 5.7 cm distal to the inferior aspect of the lesser trochanter. Severe avascular necrosis with fragmentation and articular collapse of the femoral head. Severe joint space narrowing of the femora l acetabular joint. Mid and distal portions of the femur appear intact. Demineralized appearance of t he bones. Arterial calcifications are noted. IMPRESSION: 1. Acute, comminuted, angulated and displaced proximal femoral fracture involving the intertrochanter ic distribution and proximal femoral shaft redemonstrated. 2. Severe joint space narrowing with avascular necrosis, fragmentation and articular collapse of the right femoral head. 3. No acute distal femoral fracture. ACT 112: Negative or not required by law. The above report was generated using voice recognition software. It may contain grammatical, syntax o r spelling errors. Electronically signed by: Joshua Alvarez M.D. 09/01/2019 11:58 AM
--- NOTE | 2019-09-01 12:55 | CT Scan Report ---
CT chest wo con CT DOSE: 214.13 mGy.cm CLINICAL HISTORY: 59 years-old Male with Right upper lobe lesion. All of study in a patient with his tory of prior empyema and pulmonary abscess. Small right apical pneumothorax with right upper lung op acity TECHNIQUE: Multiaxial CT images of the chest were performed without contrast. A dose lowering techni que was utilized adhering to the principles of ALARA. COMPARISON: Chest radiograph of same day, chest CT 03/09/2019, 02/09/2019, 02/05/2019, CT guided draina ge 02/01/[address] 01/03/2019 FINDINGS: Limited exam without the use of IV contrast. Heterogeneous thyroid. Prominent paratracheal lymph node s measure up to 9 mm, likely reactive. Heart is normal in size. Trace pericardial effusion. Extensive coronary artery calcifications. No thoracic aortic aneurysm. Extensive calcified plaque of the thora cic aorta. Trace right greater than left pleural effusions. Severe emphysema. Small right apical pneumothorax, p leural separation of approximately 10 mm. Mild left apical pleural parenchymal scarring. Mild depende nt bibasilar atelectasis. Irregular consolidation of the anterior segment right upper lobe has decrea sed from the comparison chest CT dated 03/09/2019. This is in the area of previous drain pulmonary ab scess. Thick-walled consolidation with adjacent pleural thickening involves the anterior segment righ t upper lobe overall measuring approximately 4.9 x 3.9 x 4.3 cm with loculated air which appears to b e in the pleural space. This demonstrates marginal spiculation with developing traction bronchiectasi s. Dependent consolidation of the right lower lobe] irregular 2.0 x 1.6 cm nodular opacity on image 2 01 series 4, also decreased from comparison where it measured 3.4 cm. Moderate degree of tracheobronc hial secretions. Bronchial wall thickening suggests bronchitis. Left adrenal gland adenoma, 12 mm. No acute process of the imaged upper abdomen. Soft tissues are unr emarkable. Degenerative changes of the spine and shoulders. No suspicious bone lesions identified. Th ere is sclerosis and mild cortical irregularity involving the anterior aspect of the right second rib which appears to be a chronic finding. Healed remote left-sided rib fractures. IMPRESSION: 1. Small right hydropneumothorax. Irregular consolidation of the anterior segment right upper lobe marquis s decreased in size from the comparison chest CT dated 03/09/2019 where there was a previously draine d pulmonary abscess. This consolidation demonstrates irregular margins with adjacent pleural thickeni ng and loculated air/debris within the pleural space measuring up to 4.9 cm. There is no significant drainable fluid collection, however this finding may reflect residual necrotic tissue/pulmonary infar ct with pleural parenchymal fibrosis. Additionally, there is mild adjacent traction bronchiectasis. 2. Irregular subpleural consolidative opacity of the posterior basal segment right lower lobe measuri ng 2.0 x 1.6 cm has also decreased from comparison and is suggestive of pleural-parenchymal scarring with rounded atelectasis. Attention at follow-up recommended. 3. Severe emphysema with bronchitis and tracheobronchial secretions. 4. Mildly prominent paratracheal lymph nodes, likely reactive. ACT 112: Negative or not required by law. Electronically signed by: Joshua Alvarez M.D. 09/01/2019 12:53 PM
--- NOTE | 2019-09-01 13:36 | Pulmonary Consultation ---
Date of Consultation September 01, 2019 Assessment & Plan (1) Pneumothorax on right: --Right-sided small apical pneumothorax This seems to be chronic given the complex history of necrotizing pneumonia of the right upper lobe in January 2019 There is pleural thickening also appreciated at the same site. 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 There is no significant change in the size even though patient was not on nonrebreather overnight. Asked the nurse to keep the patient on nonrebreather continuously we will repeat a chest x-ray in the morning. --Right upper lobe cavitation This is the residual of necrotizing pneumonia that the patient had. There is some density within the cavity as well, this could represent aspergilloma. But the patient is asymptomatic No need for any treatment. --COPD/Emphysema Patient is on Lama inhaler at home Continue with therapy while in the hospital. Patient will benefit from follow-up with pulmonary and having pulmonary function test done as an outpatient. Patient is not in exacerbation. --Right lower lobe opacity This likely represents fibrosis from resolving insult because of pneumonia in January 2019. Would just recommend repeating CT chest in 6 months to follow-up on this. --Active smoker Greater than [id number] smoking history. Advised to quit. Plan: Continue with nonrebreather continuously till tomorrow to see if there is any improvement in resolution of the apical pneumothorax. There is no indication for chest tube as the patient is hemodynamically stable. I personally think this is trapped lung. No indication for bronchoscopy. Please note the above document was generated using voice recognition software. It may contain grammatical, syntax or spelling errors. (2) COPD (chronic obstructive pulmonary disease): (3) Pulmonary nodule: History of Present Illness Attending Physician: Rajeev Quinn History of Present Illness 59-year-old male with past medical history of COPD, active smoker, alcohol abuse, systolic CHF came to the hospital status post traumatic fall and was found to have intertrochanteric fracture of the right hip. Patient had CT of the neck to rule out fracture which showed apical pneumothorax on the right side small. I was called by the ED physician last night regarding the small pneumothorax and the patient was hemodynamically stable and saturating well, not complaining of any chest pain. Recommendation was given to put the patient on 100% nonrebreat her and could be admitted to the floor with monitoring of chest x-rays. At the time of examination today patient denies any chest pain, has chronic cough which is he had for a very long time. No change in consistency or frequency of cough. No hemoptysis. Denies any chest tightness. No fever or chills. Social history: Greater than [id number] smoker, actively smoking, daily alcohol use, denies any illicit drug use. 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 No pets at home. Of note patient had a complicated pneumonia in January 2019 of right upper lobe. He had a chest tube placed in during that time. Allergies Allergy/AdvReac Type Severity Reaction Status Date / Time erythromycin base Allergy Unknown Unknown Verified 08/31/19 19:59 Penicillins Allergy Unknown Unknown Verified 08/31/19 19:59 NITRATES IN PROCESSED MEATS Allergy Severe Difficulty Uncoded 08/31/19 19:59 Breathing Home Medications Home Medications Medication Instructions Recorded Confirmed Type albuterol sulfate [Ventolin HFA] 1 - 2 puff INHALATION .Q4-6HRS PRN 12/29/18 08/31/19 History cetirizine 10 mg PO DAILY PRN 12/29/18 08/31/19 History multivitamin [Daily-Deanne] 1 tab PO QPM #30 tab 01/18/19 08/31/19 Rx Spiriva with HandiHaler 1 cap INHALATION DAILY 01/31/19 08/31/19 History acetaminophen 650 mg PO Q6H PRN 01/31/19 08/31/19 History furosemide 20 mg tablet 20 mg PO DAILY #10 tab 08/27/19 08/31/19 Rx potassium chloride 10 mEq 10 meq PO DAILY 10 Days #10 tab 08/27/19 08/31/19 Rx tablet,extended release propranolol 10 mg tablet 15 mg PO BID #45 tab 08/27/19 08/31/19 Rx Patient History Medical History Abdominal mass removed at [facility] - he cannot recall details; he was in 3rd grade Avascular necrosis of hip right COPD (chronic obstructive pulmonary disease) (Chronic) Elevated troponin GI bleed Surgical History Hx of appendectomy Family History Father Hairy cell leukemia Mother Multiple myeloma Social History Preferred Language: Nigerian Communication Ability: Effective Wool Sampler Required: No Beliefs That Will Affect Care: None marital status: Single marital status details: no children Current Living Situation: Spouse Current Living Situation Comment: lives in [place] by himself current occupational status: disabled Other Information That Helps Us Care for You: No other: previously worked 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 Feels Safe at Home: Yes Safety Concerns: Feels Safe At This Time Smoking Status: Current every day smoker Tobacco Type: cigarettes ; Age Started Using Tobacco: 16 ; packs per day: 1 ; Cigarettes Per Day: 30 ; Do You Dip or Chew Tobacco: No ; Second Hand Exposure: Yes ; Tobacco Cessation Education Requested by Patient: No Hx Alcohol Use: Yes (last drink around 1700 08/31/2019) Alcohol type: beer Alcohol Intake Frequency: Daily Alcohol Intake Frequency Comment: 4-6 beers/day Hx Substance Use: No Review of Systems Review of Systems: All systems reviewed & are unremarkable except as noted in HPI & below Physical Exam Physical Exam: Constitutional: No acute distress HEENT: EOMI, PERRLA Respiratory system: Decreased air entry bilaterally, no crackles, no rhonchi, no wheeze CVS: S1-S2 positive, no murmurs or gallops Abdomen: Soft, nontender, nondistended, positive bowel sounds x4 Extremities: +2 pulses bilaterally radialis/ dorsalis pedis, no cyanosis, no edema, shortening of the right lower extremity appreciated Neuro: Awake alert oriented x3 Psych: Normal mood and affect G/U: No Whitaker Skin: no rashes, warm and dry Lymphatic: no cervical or axillary lymphadenopathy Results & Data Results & Data ([facility]) Vital Signs (Past 12 Hours) Vital Signs Temp Pulse Resp BP Pulse Ox 09/01/19 12:53 36.6 C 83 20 110/76 99 09/01/19 07:32 36.7 C 80 16 97/70 L 99 09/01/19 05:29 09/01/19 05:29 CT chest without contrast done today personally reviewed: Patient has right upper lobe cavitary lesion along with right lower lobe opacity. This is actually the resolution of necrotizing pneumonia that the patient had in January 2019 with formation of cavity in the right upper lobe. The right lower lobe opacity is also much better compared to CAT scan January 2019. This likely represents scarring. The right apical pneumothorax has thickened pleura around it. It seems the patient has this for a very long time and likely will not resolve. Right upper lobe volume loss. PG Care Time/CCT Total # of Minutes Spent Total Time Spent with Patient: Total time spent is greater than 50% in coordination of care (as documented) at patient's floor/unit and/or counseling patient: [place] [address] Inpt Consult Level 5 Patient Type New Diagnoses Pneumothorax on right J93.9 COPD (chronic obstructive pulmonary disease) J44.9 Pulmonary nodule R91.1
[2019-09-01] MEDS: LEVOFLOXACIN/D5W 750 MG/150 ML BAG IV SCH (20:48)
[2019-09-01] MEDS: MULTIVITAMIN TAB PO SCH (20:52)
--- NOTE | 2019-09-01 22:42 | Hospitalist Progress Note ---
Date of Service September 01, 2019 Assessment & Plan (1) Intertrochanteric fracture of femur: (1) Intertrochanteric fracture of femur: Patient is a 59-year-old male with a past medical history of congestive heart failure, COPD, cardiomyopathy, CAD, tobacco abuse, history of avascular necrosis of the right hip and alcohol abuse who presents today for evaluation of a traumatic fall with associated right hip pain diagnosed with right hip intertrochanteric fracture with associated apical pneumothorax secondary to fall. #Intertrochanteric fracture of the femur Patient is well-known to [facility], emergency part department contacted them, they wish to be consulted on this patient. Will provide adequate pain control and consult orthopedics. Adequate blood flow and sensation of leg -Continue pain management. -Morphine 2mg every 2 hours as needed -[facility] Monitor for the development of neurovascular symptoms -Patient has surgery scheduled for tuesday will monitor. #Ethanol abuse Patient with a longstanding history of alcohol abuse currently endorsing drinking 1-2 sixpacks per day. He has a report a day history of experiencing alcohol withdrawal we will place him on AWSS. -ENEDELIA is ordered -Monitor for signs and symptoms of alcohol withdrawal -Continue to provide banana bag #Pneumothorax on the right Imaging identified a pneumothorax in the patient's right side. The home weatherizing worker was alerted to this. No acute need for chest tube placement he recommended repeating a chest x-ray in 5 hours, and placing the patient on nonrebreather mask in the interim. -Consulted Dr. Forrest. #Chronic systolic CHF Not in acute exacerbation at present -Continue home furosemide 20 mg p.o. daily -Continue propanolol #COPD With CT findings of emphysema, long history of, on Spiriva at home. Does not appear to be in exacerbation however some questionable findings of pneumonia. -Continue Spiriva -Continue albuterol as needed -Continue sertraline as needed -PRN duo nebs every 4 hours -Placed on antibiotics due to Leukocytosis. #Questionable pneumonia Labs consistent with leukocytosis of 16.6 however this is stable from previous lab work chest x-ray consistent with possible pneumonia. We will continue IV antibiotics -Continue Levaquin -WBC is trending down. #Tobacco dependence -Patient provided with nicotine replacement therapy #Malnutrition Patient appears malnourished on presentation, will obtain CMP to further categorize. In the interim request dietary consultation. -Consult dietitian -Follow-up B12 -Follow-up folate #hyponatremia: Likely from beer potomania Patient has a poor diet. Will have him on fluid restriction and will monitor his sodium Anticipate this to improve #Discharge planning Per report patient presented to the hospital covered in his own filth and bugs. Will need case management's assistance in making sure this patient has a safe environment to be discharged to. Code Status: Full code DVT PPX: Contraindicated in the event of surgery PT/OT: We will need after surgery Dispo: MedSurg (2) Pneumonia: (3) ETOH abuse: (4) NSTEMI (non-ST elevated myocardial infarction): (5) Empyema, right: (6) COPD (chronic obstructive pulmonary disease): (7) Cardiomyopathy: Admission and Anticipated Discharge Date Admission Date: August 31, 2019 Subjective Patient complaining of pain in his affected hip. Patient denies any other symptoms. He reports he has a poor diet at home. Review of Systems Review of Systems: All systems reviewed & are unremarkable except as noted in HPI & below Physical Exam Physical Exam: General: Disheveled appearing male appearing older than his stated age HEENT: Normocephalic atraumatic poor dentition Neck: Normal to visual inspection, trachea midline, did not appreciate JVD Cardiac: Regular rate and rhythm. normal S1, normal S2 Respiratory:clear to auscultation, except for rhonchi in Right upper lung field, symmetrical chest expansion GI: Soft, nontender, nondistended MSK: Deformity of the right hip Skin: Numerous bruises Neuro: Alert and oriented x4 no defects Psych: Cooperative Results & Data Results & Data ([facility]) Vital Signs (Past 12 Hours) Vital Signs Temp Pulse Resp BP Pulse Ox 09/01/19 20:46 16 101/68 100 09/01/19 15:37 36.7 C 80 18 109/75 97 09/01/19 12:53 36.6 C 83 20 110/76 99 PG Care Time/CCT Total # of Minutes Spent Total Time Spent with Patient: Total time spent is greater than 50% in coordination of care (as documented) at patient's floor/unit and/or counseling patient: Coding Level of Care Code 46225 Subseq Hosp Care Lvl 3 Diagnoses Intertrochanteric fracture of femur S72.144A Encounter type: initial encounter Fracture alignment: nondisplaced Fracture type: closed Laterality: right Pneumonia J18.9 ETOH abuse F10.10 NSTEMI (non-ST elevated myocardial infarction) I21.4 Empyema, right J86.9 COPD (chronic obstructive pulmonary disease) J44.9 Cardiomyopathy I42.9 Time Spent (min) 35 (1) Intertrochanteric fracture of femur Encounter type: initial encounter Fracture alignment: nondisplaced Fracture type: closed Laterality: right Qualified Code(s): S72.144A - Nondisplaced intertrochanteric fracture of right femur, initial encounter for closed fracture
[2019-09-02] MEDS: MoRPHine SULFATE 2 MG/ML CARP IV PRN ×5 (00:05→20:32)
--- NOTE | 2019-09-02 06:44 | Billing Data ---
Date of Service September 02, 2019 Coding Level of Care Code 21032 Initial Inpt Care Lvl 3
[2019-09-02] MEDS: POLYETHYLENE (MIRALAX) 17 GM PACK PO SCH ×2 (07:50→20:35)
[2019-09-02] MEDS: UMECLIDINIUM BROMIDE 62.5MCG/BLISTER 7 PUFFS/INHALER INH SCH (07:51)
[2019-09-02] MEDS: FOLIC ACID 1 MG TAB PO SCH (07:51)
[2019-09-02] MEDS: PROPRANOLOL HCL 10 MG TAB PO SCH ×2 (07:52→20:38)
[2019-09-02] MEDS: FUROSEMIDE 20 MG TAB PO SCH (07:53)
[2019-09-02] MEDS: NICOTINE 14 MG/24 HR PATCH TD SCH (07:53)
[2019-09-02] MEDS: POTASSIUM CHLORIDE 10 MEQ TABCR PO SCH (07:53)
[2019-09-02 08:48] LABS: Basophils # (auto) 0.01 K/uL (0-0.2); Basophils % (auto) 0.1 %; Eosinophils # (auto) 0.05 K/uL (0-0.5); Eosinophils % (auto) 0.5 %; Hematocrit (blood only) 37.5 % (42-52); Immature Granulocytes # (auto) 0.03 K/uL (0.00-0.02); Immature Granulocytes % (auto) 0.3 %; Lymphocytes # (auto) 0.91 K/uL (1.2-3.4); Lymphocytes % (auto) 9.4 %; Mean Corpuscular Hemoglobin 32.9 pg (25-34); Mean Corpuscular Hgb Conc 34.7 g/dL (32-36); Mean Corpuscular Volume 94.9 fL (80-100); Mean Platelet Volume 9.2 fL (7.4-10.4); Monocytes # (auto) 0.81 K/uL (0.11-0.59); Monocytes % (auto) 8.3 %; Neutrophils % (auto) 81.4 %; Platelet Count 234 K/uL (130-400); RDW Coefficient of Variation 15.2 % (11.5-14.5); RDW Standard Deviation 52.7 fL (36.4-46.3); Red Blood Count 3.95 M/uL (4.7-6.1); White Blood Count 9.71 K/uL (4.8-10.8)
[2019-09-02 09:10] LABS: Albumin Globulin Ratio 0.7 (0.9-2); Albumin Level 2.2 gm/dl (3.4-5.0); BUN Creatinine Ratio 12.6 (10-20); Bilirubin,Total 0.4 mg/dl (0.2-1); Calcium 8.5 mg/dl (8.5-10.1); Creatinine Clr Calc Pharmacy 96.9 ml/min; Est GFR (African American) 127.6; Est GFR (Non-African American) 110.1; Globulin 3.3 gm/dl (2.5-4.0); Potassium 3.5 mmol/L (3.5-5.1); Total Protein 5.5 gm/dl (6.4-8.2)
--- NOTE | 2019-09-02 09:11 | Orthopedic Progress Note ---
Date of Service September 02, 2019 Assessment & Plan (1) Intertrochanteric fracture of femur: Right hip intertrochanteric fracture, AVN Multiple comorbidities as noted above. NWB for now. Currently NPO, Na+ and albumin low, Hx ETOH abuse. Will KATERINA due to AVN per [facility], Tuesday per Dr. Tomlin. NPO after MN. Will need medical clearance. Films and labs studies are reviewed. Patient shows increased risk for mortality given moderate to severe hyponatremia. We will discuss with the managing serv ice plan for correction and clarification if the patient is an accepatable risk for surgery. Given the history of AVN of the hip, the preferred treatment is for calcar replacing total hip. I discussed with Dr. Tomlin , and he will tenatively place on the surgical schedule for tuesday, pending medical clearance. Admission and Anticipated Discharge Date Admission Date: August 31, 2019 Subjective Right hip inter troch fx and AVN. Patient comfortable this AM. Denies SOB, CP, N/V. Pulmonary consult complete, see report. Physical Exam Physical Exam: Right LE ER. Toes mobile. N/V+. A&Ox3. Results & Data ([facility]) Vital Signs (Past 12 Hours) Vital Signs Temp Pulse Resp BP Pulse Ox 09/02/19 07:33 36.6 C 89 20 103/71 98 09/01/19 23:09 36.5 C 88 18 100/70 98 (1) Intertrochanteric fracture of femur Encounter type: initial encounter Fracture alignment: nondisplaced Fracture type: closed Laterality: right Qualified Code(s): S72.144A - Nondisplaced intertrochanteric fracture of right femur, initial encounter for closed fracture
--- NOTE | 2019-09-02 11:17 | Hospitalist Progress Note ---
Date of Service September 02, 2019 Assessment & Plan (1) Intertrochanteric fracture of femur: (1) Intertrochanteric fracture of femur: Patient is a 59-year-old male with a past medical history of congestive heart failure, COPD, cardiomyopathy, CAD, tobacco abuse, history of avascular necrosis of the right hip and alcohol abuse who presents today for evaluation of a traumatic fall with associated right hip pain diagnosed with right hip intertrochanteric fracture with associated apical pneumothorax secondary to fall. #Intertrochanteric fracture of the femur Patient is well-known to [facility], emergency part department contacted them, they wish to be consulted on this patient. Will provide adequate pain control and consult orthopedics. Adequate blood flow and sensation of leg -Continue pain management. -Morphine 2mg every 2 hours as needed -[facility] Monitor for the development of neurovascular symptoms -Patient has surgery scheduled for tuesday will monitor. -Patient is intermediate to high risk and will be going for a intermediate risk procedure. His sodium is improving and is now 129, anticipate this to be better tomorrow. #Ethanol abuse Patient with a longstanding history of alcohol abuse currently endorsing drinking 1-2 sixpacks per day. He has a report a day history of experiencing alcohol withdrawal we will place him on AWSS. -ENEDELIA is ordered -Monitor for signs and symptoms of alcohol withdrawal -Continue to provide banana bag #Pneumothorax on the right Imaging identified a pneumothorax in the patient's right side. The mitochondrial disorders counselor was alerted to this. Now on Room air. -Consulted Dr. Forrest. #Chronic systolic CHF Not in acute exacerbation at present -Continue home furosemide 20 mg p.o. daily -Continue propanolol #COPD With CT findings of emphysema, long history of, on Spiriva at home. Does not appear to be in exacerbation however some questionable findings of pneumonia. -Continue Spiriva -Continue albuterol as needed -Continue sertraline as needed -PRN duo nebs every 4 hours -Placed on antibiotics due to Leukocytosis. #Questionable pneumonia Labs consistent with leukocytosis of 16.6 however this is stable from previous lab work chest x-ray consistent with possible pneumonia. We will continue IV antibiotics -Continue Levaquin for a total of 5 days, WBC has improved. -WBC is trending down. #Tobacco dependence -Patient provided with nicotine replacement therapy #Malnutrition Patient appears malnourished on presentation, will obtain CMP to further categorize. In the interim request dietary consultation. -Consult dietitian -Follow-up B12 -Follow-up folate #hyponatremia: Likely from beer potomania Patient has a poor diet. Will have him on fluid restriction and will monitor his sodium Anticipate this to improve. now 129 from 124. #Discharge planning Per report patient presented to the hospital covered in his own filth and bugs. Will need case management's assistance in making sure this patient has a safe environment to be discharged to. Code Status: Full code DVT PPX: Contraindicated in the event of surgery PT/OT: We will need after surgery Dispo: MedSurg (2) Pneumonia: (3) ETOH abuse: (4) NSTEMI (non-ST elevated myocardial infarction): h/o above diagnosis. (5) Empyema, right: treated in past. currently not the case. (6) COPD (chronic obstructive pulmonary disease): (7) Cardiomyopathy: Admission and Anticipated Discharge Date Admission Date: August 31, 2019 Subjective Patient reports that his pain is controlled. Review of Systems Review of Systems: All systems reviewed & are unremarkable except as noted in HPI & below Physical Exam Physical Exam: General: Disheveled appearing male appearing older than his stated age HEENT: Normocephalic atraumatic poor dentition Neck: Normal to visual inspection, trachea midline, did not appreciate JVD Cardiac: Regular rate and rhythm. normal S1, normal S2 Respiratory:clear to auscultation, except for rhonchi in Right upper lung field, symmetrical chest expansion GI: Soft, nontender, nondistended MSK: Deformity of the right hip Skin: Numerous bruises Neuro: Alert and oriented x4 no defects Psych: Cooperative Results & Data Results & Data ([facility]) Vital Signs (Past 12 Hours) Vital Signs Temp Pulse Resp BP Pulse Ox 09/02/19 07:33 36.6 C 89 20 103/71 98 PG Care Time/CCT Total # of Minutes Spent Total Time Spent with Patient: Total time spent is greater than 50% in coordination of care (as documented) at patient's floor/unit and/or counseling patient: Coding Level of Care Code 18795 Subseq Hosp Care Lvl 3 Diagnoses Intertrochanteric fracture of femur S72.144A Encounter type: initial encounter Fracture alignment: nondisplaced Fracture type: closed Laterality: right Pneumonia J18.9 ETOH abuse F10.10 NSTEMI (non-ST elevated myocardial infarction) I21.4 Empyema, right J86.9 COPD (chronic obstructive pulmonary disease) J44.9 Cardiomyopathy I42.9 Time Spent (min) 35 (1) Intertrochanteric fracture of femur Encounter type: initial encounter Fracture alignment: nondisplaced Fracture type: closed Laterality: right Qualified Code(s): S72.144A - Nondisplaced intertrochanteric fracture of right femur, initial encounter for closed fracture
[2019-09-02] MEDS: MoRPHine SULFATE 4 MG/ML 1 ML CARP\\VIAL IV PRN ×3 (11:38→17:53)
--- NOTE | 2019-09-02 11:39 | Progress Notes ---
DATE: 09/02/2019 SUBJECTIVE: Fabian is seen at the bedside today, he notes appropriate amount of pain in the right hip region. Otherwise, he is verbalizing no complaints. Denies any numbness. OBJECTIVE: On right lower extremity examination, calf is soft. He can flex and extend the ankle and toes. Toes are warm and well perfused. He has pain with log roll of the right hip. LABORATORY STUDIES: Sodium has increased from 124 to 129 this morning. ASSESSMENT: 1. Right intertrochanteric fracture with comminution of the lesser trochanter. 2. Avascular necrosis, right hip. 3. Hyponatremia, improving. PLAN: I discussed surgical treatment with the patient. At this point, likely plan for Dr. Tomlin to proceed with right calcar replacing hemiarthroplasty given the AVN of the hip. We will clarify allergy to penicillin preoperatively. He was made n.p.o. after midnight. Sodium does appear to be improving with treatment of fluid restriction.
--- NOTE | 2019-09-02 12:00 | Pulmonology Progress Note ---
Date of Service September 02, 2019 Assessment & Plan (1) Pneumothorax on right: --Right-sided small apical pneumothorax This seems to be chronic given the complex history of necrotizing pneumonia of the right upper lobe in January 2019 There is pleural thickening also appreciated at the same site. 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 --Right upper lobe cavitation This is the residual of necrotizing pneumonia that the patient had. There is some density within the cavity as well, this could represent aspergilloma. But the patient is asymptomatic No need for any treatment. --COPD/Emphysema Patient is on Lama inhaler at home Continue with therapy while in the hospital. Patient will benefit from follow-up with pulmonary and having pulmonary function test done as an outpatient. Patient is not in exacerbation. --Right lower lobe opacity This likely represents fibrosis from resolving insult because of pneumonia in January 2019. Would just recommend repeating CT chest in 6 months to follow-up on this. --Active smoker Greater than [id number] smoking history. Advised to quit. Plan: Follow-up chest x-ray from today inspiratory and expiratory film. If there is no change in the size of the pneumothorax patient will not need serial chest x- rays. There is no indication for chest tube as the patient is hemodynamically stable. I personally think this is trapped lung. Please note the above document was generated using voice recognition software. It may contain grammatical, syntax or spelling errors. (2) COPD (chronic obstructive pulmonary disease): (3) Pulmonary nodule: Admission and Anticipated Discharge Date Admission Date: August 31, 2019 Subjective Patient seen and examined at bedside. No acute distress, no adverse events overnight. Patient has been using nonrebreather since yesterday evening. Denies any chest pain, no shortness of breath, no cough. Denies any headache, no dizziness. Good appetite, no nausea or vomiting. Review of Systems Review of Systems: All systems reviewed & are unremarkable except as noted in HPI & below Physical Exam Physical Exam: Constitutional: No acute distress HEENT: EOMI, PERRLA Respiratory system: Decreased air entry bilaterally, no crackles, no rhonchi, no wheeze CVS: S1-S2 positive, no murmurs or gallops Abdomen: Soft, nontender, nondistended, positive bowel sounds x4 Extremities: +2 pulses bilaterally radialis/ dorsalis pedis, no cyanosis, no edema, shortening of the right lower extremity appreciated Neuro: Awake alert oriented x3 Psych: Normal mood and affect G/U: No Whitaker Skin: no rashes, warm and dry Lymphatic: no cervical or axillary lymphadenopathy Results & Data Results & Data ([facility]) Vital Signs (Past 12 Hours) Vital Signs Temp Pulse Resp BP Pulse Ox 09/02/19 07:33 36.6 C 89 20 103/71 98 09/02/19 08:41 09/02/19 08:40 PG Care Time/CCT Total # of Minutes Spent Total Time Spent with Patient: Total time spent is greater than 50% in c oordination of care (as documented) at patient's floor/unit and/or counseling patient: Coding Level of Care Code 67430 Subseq Hosp Care Lvl 3 Diagnoses Pneumothorax on right J93.9 COPD (chronic obstructive pulmonary disease) J44.9 Pulmonary nodule R91.1
--- NOTE | 2019-09-02 12:32 | Consultation Report ---
DATE OF CONSULTATION: 09/02/2019 REASON FOR CONSULTATION: Right chest process. HISTORY OF PRESENT ILLNESS: This is a 59-year-old male who I met back in 12/2018 when he presented with an empyema and a terrible lung abscess in his right upper lobe. The patient is emaciated and a heavy smoker, and I did not feel he would tolerate an operation. For that reason, he initially had a pigtail catheter, thru which we used Pulmozyme and TPA in the MIST-2 protocol, and he responded nicely to this. I then placed a large 36-Slovak chest tube into this cavity into his right pleural space and slowly backed this out over a several-week period and so finally we removed it and he healed over completely. He did not really come back for followup. I reviewed his CT scan, which was done yesterday and compared it to a CT scan done several months ago and it is much improved. His incision where the chest tube was in place has completely resurfaced and he has no pain. He states his breathing has not really changed. He presented with a broken hip. I was asked to comment on this process in his right upper lobe and right pleural cavity. 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 He has essentially been asymptomatic from this. He did have a leukocytosis; however, he broke his hip and may have marginalized from stress. As his procalcitonin is normal, I would not address this further. I agree with Dr. Goncalves's consultation completely. His recommendation should be followed. I do not believe I would intervene now or in the future unless our hands are forced. SAJAN
--- NOTE | 2019-09-02 13:10 | XRay Report ---
XR chest inspiration/expiratio CLINICAL HISTORY: Pneumothorax. COMPARISON STUDY: 09/01/2019 FINDINGS: The heart is normal in size. There is pulmonary emphysema. There is a trace right apical pn eumothorax with pleural separation a 4 mm. There are old left-sided rib fractures. There are right ba silar atelectatic changes. There is a 5 cm right apical opacity with equivocal cavitation.[ IMPRESSION: 1. Persistent 5 cm right apical opacity with equivocal cavitation 2. Stable trace right apical pneumothorax 3. Emphysema ACT 112: Negative or not required by law. Electronically signed by: Sung Moses M.D. 09/02/2019 1:09 PM
[2019-09-02] MEDS: HEPARIN SOD 5,000 UNIT/0.5 ML VIAL SQ SCH ×2 (13:43→21:46)
[2019-09-02] MEDS: MULTIVITAMIN TAB PO SCH (20:37)
[2019-09-02] MEDS ORDERED: levoFLOXacin 750 MG TAB PO SCH (21:00)
[2019-09-03] MEDS: MoRPHine SULFATE 4 MG/ML 1 ML CARP\\VIAL IV PRN ×3 (00:28→06:05)
[2019-09-03] MEDS ORDERED: CEFAZOLIN 1000MG 1,000 MG/7.5 ML SYR IV SCH (06:00)
[2019-09-03 06:05] LABS: BUN Creatinine Ratio 15.3 (10-20); Calcium 8.5 mg/dl (8.5-10.1); Creatinine Clr Calc Pharmacy 115.9 ml/min; Est GFR (African American) 137.3; Est GFR (Non-African American) 118.5; Potassium 3.7 mmol/L (3.5-5.1)
[2019-09-03] MEDS: HEPARIN SOD 5,000 UNIT/0.5 ML VIAL SQ SCH ×3 (06:07→20:44)
[2019-09-03] MEDS ORDERED: fentaNYL citrate 100 MCG/2 ML VIAL ONE (07:34)
[2019-09-03] MEDS ORDERED: MIDAZOLAM HCL 1 MG/ML 2ML VIAL ONE (07:34)
[2019-09-03] MEDS ORDERED: BACITRACIN OINT 15 GM TUBE ONE (07:55)
[2019-09-03] MEDS ORDERED: BACITRACIN INJ 50,000 UNIT VIAL ONE (07:55)
[2019-09-03] MEDS ORDERED: LACTATED RINGER'S 1,000 ML IV SCH (08:30)
--- NOTE | 2019-09-03 08:43 | Anesthesiology Consultation ---
Date of Service September 03, 2019 etoh abuse copd smoker chf Assessment & Plan Chart Review Chart Review: Acceptable Risk for Surgery and Patient NOT seen in Pre Admission Testing Consults Requested none ASA ASA4 Proposed Anesthesia Anesthesia Type: Spinal Risk / Benefits Reviewed With: PT / POA / Parent / Guardian, Accepts Plan and Informed Consent Obtained History Surgery Operation Date: 09/03/19 08:30 Proposed Procedures p Right Total Hip Arthroplasty with Calcar Replacement - Leon Tomlin, Height/Weight Height: 5 ft 7 in Weight: 51.9 kg Allergies Allergy/AdvReac Type Severity Reaction Status Date / Time erythromycin base Allergy Unknown Unknown Verified 09/03/19 07:54 Penicillins Allergy Unknown Unknown Verified 09/03/19 07:54 NITRATES IN PROCESSED MEATS Allergy Severe Difficulty Uncoded 09/03/19 07:54 Breathing Medications Home Medications Medication Instructions Recorded Confirmed Last Taken albuterol sulfate [Ventolin HFA] 1 - 2 puff INHALATION .Q4-6HRS PRN 12/29/18 08/31/19 12/29/18 cetirizine 10 mg PO DAILY PRN 12/29/18 08/31/19 Unknown multivitamin [Daily-Deanne] 1 tab PO QPM #30 tab 01/18/19 08/31/19 01/27/19 Spiriva with HandiHaler 1 cap INHALATION DAILY 01/31/19 08/31/19 Unknown acetaminophen 650 mg PO Q6H PRN 01/31/19 08/31/19 Unknown furosemide 20 mg tablet 20 mg PO DAILY #10 tab 08/27/19 08/31/19 Unknown potassium chloride 10 mEq 10 meq PO DAILY 10 Days #10 tab 08/27/19 08/31/19 Unknown tablet,extended release propranolol 10 mg tablet 15 mg PO BID #45 tab 08/27/19 08/31/19 Unknown Active Medications Generic Name Dose Route Start Last Admin Trade Name Freq PRN Reason Stop Dose Admin Albuterol 1 - 2 puffs 08/31/19 23:48 09/01/19 13:55 Ventolin Hfa INH 09/30/19 23:47 2 puffs Q4H PRN Administration Shortness Of Breath Or Wheezing Folic Acid 1 mg 09/01/19 09:00 09/02/19 07:51 Folvite PO 10/01/19 08:59 1 mg QAM CECILIO Administration Furosemide 20 mg 09/01/19 09:00 09/02/19 07:53 Lasix PO 10/01/19 08:59 20 mg DAILY CECILIO Administration Heparin Sodium (Porcine) 5,000 units 09/02/19 14:00 09/03/19 06:07 Heparin Sodium (Porcine) SQ 10/02/19 13:59 5,000 units Q8 CECILIO Administration Lactated Ringer's 1,000 mls @ 15 mls/hr 09/03/19 08:30 09/03/19 08:22 Lr IV 10/03/19 08:29 15 mls/hr .Q24H CECILIO Administration Levofloxacin 750 mg 09/02/19 21:00 09/02/19 20:37 Levaquin PO 09/06/19 21:01 750 mg HS CECILIO Administration Miscellaneous 1 ea 09/01/19 08:59 09/02/19 07:45 Remove Nicoderm Patch N/A 10/01/19 08:58 Not Given DAILY@0859 CECILIO Morphine Sulfate 2 mg 08/31/19 23:21 09/02/19 20:32 Morphine Sulfate IV 09/14/19 23:20 2 mg Q2H PRN Administration MODERATE Pain (Scale 4,5,6) Morphine Sulfate 4 mg 08/31/19 23:23 09/03/19 06:05 Morphine Sulfate IV 09/14/19 23:22 4 mg Q2H PRN Administration SEVERE Pain (Scale 7,8,9,10) Multivitamins 1 tab 09/01/19 21:00 09/02/19 20:37 Multivitamin Tab PO 10/01/19 20:59 1 tab QPM CECILIO Administration Nicotine 14 mg 09/01/19 09:00 09/02/19 07:53 Nicoderm Cq TD 10/01/19 08:59 14 mg QAM CECILIO Administration Polyethylene Glycol 17 gm 09/01/19 09:00 09/02/19 20:35 Miralax Powder Packet PO 10/01/19 08:59 Not Given BID CECILIO Potassium Chloride 10 meq 09/01/19 09:00 09/02/19 07:53 Klor-Con M10 PO 10/01/19 08:59 10 meq DAILY CECILIO Administration Propranolol HCl 15 mg 08/31/19 23:48 09/02/19 20:38 Inderal PO 09/30/19 23:47 15 mg BID CECILIO Administration Umeclidinium [place] 1 puffs 09/01/19 09:00 09/02/19 07:51 Incruse Ellipta INH 10/01/19 08:59 1 puffs DAILY CECILIO Administration NPO Date Last Intake of Fluids: 09/02/19 Time Last Intake of Fluids: 23:30 Date Last Intake of Solids: 09/02/19 Time Last Intake of Solids: 22:00 Past Medical History Medical History Abdominal mass removed at [facility] - he cannot recall details; he was in 3rd grade Avascular necrosis of hip right COPD (chronic obstructive pulmonary disease) (Chronic) Elevated troponin GI bleed Exercise / Class Metabolic Activity II 4-5 Yardwork/Stairs/Walk up hill Past Family History Family History Father Hairy cell leukemia Mother Multiple myeloma Past Surgical History Surgical History Hx of appendectomy Past Anesthesia History No Hx of Anesthesia Complications and No Family Hx of Anesthesia Complications History of PONV No Hx of PONV and No Hx of Motion Sickness Social History Smoking Status: Current every day smoker tobacco type: cigarettes Smoking cigarettes per day: 30 Do You Dip or Chew Tobacco: No Hx Alcohol Use: Yes (last drink around 1700 08/31/2019) Alcohol type: beer alcohol intake frequency: 3 or more drinks per day Alcohol Intake Frequency Comment: 6-12 per day Hx Substance Use: No substance use type: does not use Physical Exam Vital Signs Last Vital Signs Temp 36.5 C 09/03/19 07:54 Pulse 84 09/03/19 07:54 Resp 16 09/03/19 07:54 BP 99/69 L 09/03/19 07:54 Pulse Ox 93 09/03/19 07:54 ENMT Mouth: no dentition abnormality Thyromental Distance: > or= 3.5 Finger Breadths Mallampati Class: II Neck normal visual inspection Respiratory normal respiratory effort Auscultation: + diminished lung sounds Cardiovascular Rate/Rhythm: regular rate and regular rhythm Psychiatric Orientation: alert Testing Laboratory Results 09/02/19 08:41 09/03/19 05:23 PT 11.7 Seconds (9.0-12.0) 08/31/19 20: INR 1.1 (0.9-1.1) 08/31/19 20:31 APTT 31.6 Seconds (21.0-31.0) H 08/31/19 20:31 Urine Color Yellow 08/31/19 21:15 Urine Appearance Clear (Clear) 08/31/19 21:15 Urine pH 5.5 (4.5-7.5) 08/31/19 21:15 Ur Specific [place] 1.017 (1.000-1.030) 08/31/19 21:15 Urine Protein Negative (Negative) 08/31/19 21:15 Urine Glucose (UA) Negative (Negative) 08/31/19 21:15 Urine Ketones 1+ (Negative) H 08/31/19 21:15 Urine Nitrite Negative (Negative) 08/31/19 21:15 Ur Leukocyte Esterase Negative (Negative) 08/31/19 21:15 Urine WBC (Auto) 1-5 /hpf (0-5) 08/31/19 21:15 Urine RBC (Auto) 10-30 /hpf (0-4) H 08/31/19 21:15 U Hyaline Cast (Auto) 1-5 /lpf (0-5) 08/31/19 21:15 U Epithel Cells (Auto) 5-10 /lpf (0-5) H 08/31/19 21:15 Urine Bacteria (Auto) Negative (Negative) 08/31/19 21:15 Blood Type O Positive 08/31/19 20:31 Antibody Screen NEGATIVE 08/31/19 20:31 08/31/19 21:35 Aerobic Blood Culture - Preliminary Blood No growth in Aerobic bottle after 48 hours. Anaerobic Blood Culture - Final 08/31/19 21:35 Aerobic Blood Culture - Preliminary Blood No growth in Aerobic bottle after 48 hours. Anaerobic Blood Culture - Final Electrocardiogram Date: 08/31/19 Findings: + NSR @ Chest X-Ray Date: 08/31/19 Findings: + other chronic small apical pnx. scarring of necrotizing pna; chronic. copd. Echocardiogram Date: 01/08/19 EF: 30 RWMA: + hypokinetic (apex) Other Findings: + RVH
--- NOTE | 2019-09-03 09:14 | History & Physical Bridge Note ---
Date of Service September 03, 2019 History & Physical Bridge Note I have examined the patient, reviewed the History & Physical and in the interval since the performance of the History & Physical I have noted the following changes of clinical significance: The patient had a prodrome of hip pain which was going to be addressed with total hip arthroplasty in 2018. 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 All potential risks and benefits related to the patient's care were considered regarding the current Covid-19 pandemic. The patient's current condition is deemed as urgent necessitating surgery now and performing surgery at this time will prevent further morbidity and likely worsening of the patient's condition including further displacement of the fracture, nonunion, DV T, PE, skin ulceration, osteomyelitis, loss of limb or loss of life. The patient will be scheduled for surgery now without any further waiting period as this condition is urgent and indicated.
[2019-09-03] MEDS ORDERED: ROPIVACAINE 0.5% HCL/PF 150 MG, BUPIVACAINE 0.5% MPF 30 ML, EPINEPHrine 30MG/30ML (OR U... INFIL SCH (09:30)
[2019-09-03] MEDS ORDERED: PROPOFOL IV EMULSION 10 MG/ML 20 ML VIAL IV ONE (09:51)
[2019-09-03] MEDS ORDERED: ePHEDrine sulfate 50 MG/ML SYR ONE (10:15)
[2019-09-03] MEDS ORDERED: PHENYLEPHRINE HCL 10 MG/ML VIAL ONE (10:48)
[2019-09-03] MEDS ORDERED: PROMETHAZINE HCL 6.25 MG in SODIUM CHLORIDE 0.9% 50 ML IV PRN (11:13)
[2019-09-03] MEDS ORDERED: fentaNYL citrate 100 MCG/2 ML VIAL IV PRN (11:13)
[2019-09-03] MEDS ORDERED: ALBUT/IPRATROP 3MG/0.5MG NEB 3 ML VIAL INH PRN (11:13)
[2019-09-03] MEDS ORDERED: ATROPINE SULFATE 0.1 MG/ML 10ML SYR IV PRN (11:13)
[2019-09-03] MEDS ORDERED: ePHEDrine sulfate 50 MG/ML AMP IV PRN (11:13)
[2019-09-03] MEDS ORDERED: ONDANSETRON INJ 2 MG/ML 2 ML VIAL IV PRN (11:13)
--- NOTE | 2019-09-03 12:36 | XRay Report ---
XR hip RT 1V CLINICAL HISTORY: intaoperative XR COMPARISON STUDY: Right femur 09/01/2019. FINDINGS: Single intraoperative image of the right hip was submitted for review. There is a right tot al hip arthroplasty. The hardware appears intact. Alignment appears anatomic. Proximal femoral shaft appears intact. IMPRESSION: Right total hip arthroplasty. The hardware appears intact. ACT 112: Negative or not required by law. Electronically signed by: Jr Tejada M.D. 09/03/2019 12:35 PM
[2019-09-03] MEDS ORDERED: CEFAZOLIN 250 MG/ML 1 GM VIAL ONE (13:15)
[2019-09-03] MEDS ORDERED: CEFAZOLIN 1000MG 1,000 MG/7.5 ML SYR IV STA (13:20)
--- NOTE | 2019-09-03 13:35 | Post Operative Brief Note ---
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 I identified the patient and participated in the time-out.: Yes Procedure Operation Date: 09/03/19 08:30 Actual Procedures p Right Total Hip Arthroplasty with [employer] modular Stem and Body, [employer]-SensingStrip 2.0 mm cables x2, Biolox delta 36 mm femoral head +5 mm, Trident X3 10 degree 36 mm polyethylene, Trident titanium hemispherical 58 mm shell, 6.5 mm Osteolock cancellous screws x2; Enhanced level of care due to nature and complexity of fracture pattern (Right) - Leon Tomlin DO Surgeon Leon Tomlin DO It Generalist Hemant Carballo PA-C Estimated Blood Loss 75 Findings Consistent with Post-Op Diagnosis Specimens Right femoral head bone and tissue Drains Hemovac Drain (10 [place] Hemovac x2) Anesthesia Type Spinal MAC Complications none Enhanced level of surgical difficulty due to nature and complexity of the displaced fractures. Disposition Accompanied Patient To Recovery: No Disposition: Recovery Room
--- NOTE | 2019-09-03 14:15 | Anesthesiology Progress Note ---
Date of Service September 03, 2019 Anesthesia Post Procedure Vital Signs Vital Signs: Temp Pulse Pulse Resp BP BP Pulse Ox 09/03/19 14:10 111 H 18 114/76 92 09/03/19 14:00 36.4 C L 114 H 18 111/83 94 09/03/19 13:50 109 H 20 112/81 100 09/03/19 13:40 36.2 C L 112 H 22 112/80 100 09/03/19 07:54 36.5 C 84 16 99/69 L 93 09/03/19 07:07 36.4 C L 84 16 95/62 L 93 09/03/19 03:59 36.6 C 94 H 16 97/65 L 93 09/02/19 23:02 36.9 C 109 H 16 110/76 92 09/02/19 21:44 36.6 C 110 H 18 108/69 93 09/02/19 20:31 37.2 C 122 H 18 101/71 89 L 09/02/19 17:22 36.7 C 110 H 18 118/82 97 09/02/19 15:18 36.9 C 94 H 18 117/80 97 Pain Intensity Right Hip: Pain Intensity: 7 Transfer of Care Handoff Completed per policy Notes Mental Status: alert / awake / arousable Patient Amnestic to Procedure: Yes Nausea / Vomiting: adequately controlled Pain: adequately controlled Airway Patency, RR, SpO2: stable & adequate BP & HR: stable & adequate Hydration State: stable & adequate Neuraxial Anesthesia: was administered and sensory block is resolving Anesthetic Complications: no major complications apparent
--- NOTE | 2019-09-03 14:23 | XRay Report ---
AP PELVIS, CROSSTABLE LATERAL RIGHT HIP History: Right total hip arthroplasty. Degenerative arthritis. Postop. FINDINGS: The patient is status post a right total hip arthroplasty. The hardware is intact. No fract ure or dislocation. Skin thomas and surgical drains are in place. IMPRESSION: Right total hip arthroplasty. No evidence for hardware complication ACT 112: Negative or not required by law. Electronically signed by: Jr Tejada M.D. 09/03/2019 2:22 PM
[2019-09-03] MEDS ORDERED: SODIUM CHLORIDE 0.9% 1000ML 1,000 ML IV SCH (14:30)
[2019-09-03] MEDS ORDERED: bisacodyL 10 MG SUPP PR PRN (14:30)
[2019-09-03] MEDS ORDERED: MAGNESIUM HYDROXIDE SUSP 30 ML UDC PO PRN (14:30)
[2019-09-03] MEDS ORDERED: NALOXONE HCL 0.4 MG/1 ML VIAL/CARP IV PRN (14:30)
--- NOTE | 2019-09-03 14:47 | Operative Report (OR) ---
DATE OF OPERATION: 08/31/2019 PREOPERATIVE DIAGNOSES: 1. Right displaced intertrochanteric hip fracture with comminution involving the lesser trochanter with detachment. 2. Avascular necrosis of the femoral head. 3. 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 4. Preexisting right hip pain. POSTOPERATIVE DIAGNOSES: 1. Right displaced intertrochanteric hip fracture with comminution involving the lesser trochanter with detachment. 2. Avascular necrosis of the femoral head. 3. 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 4. Preexisting right hip pain. PROCEDURE: 1. Right total hip arthroplasty with [email or web address] hoahaoism modular hip system 23 mm size, +10 mm height with a V40 taper, Biolox delta ceramic V40 femoral head 36 mm +5 mm, Trident X3 10 degree polyethylene insert 36 mm, Dall-Miles 2.0 mm beaded cables and sleeves x2, OsteoLock 3.5 mm hex drive cancellous screws x2, Trident titanium hemispheric 58 mm shell. 2. Enhanced difficulty of surgical procedure due to nature and severity of the displacement involving the right hip fracture. SURGEON: Leon Tomlin DO. SUTURE POLISHER: Hemant Carballo PA-C who was present for patient positioning, sterile prep and drape, management of retractors and instruments. He was present through the critical portions of the case including wound closure, application of sterile dressing and transport of the patient to recovery. ANESTHESIA: Spinal with sedation and local. SPECIMENS: Bone and tissue, right hip. DRAINS: 10-Northern Irish Hemovac drains x2. COMPLICATIONS: None; however, enhanced surgical time and difficulty due to the nature and severity of the fracture and the patient's bone condition. BLOOD LOSS: 75 mL PERTINENT HISTORY: This is a 59-year-old gentleman who sustained a mechanical fall on his right hip. Immediately had inability to ambulate, had pain and difficulty with any motion. He was transferred to [facility]. He was radiographed and noted to have a significantly displaced comminuted right proximal hip fracture. The patient was then admitted to the hospitalist service with orthopedics consulting. The patient was stabilized. The sodium was normalized and he was then optimized for surgery as indicated. The patient's care was deemed urgent and necessary despite the Covid-19 pandemic due to the nature and severity of the patient's fracture and risk of life and limb and possible . The patient was scheduled for surgery as indicated. All potential risks, benefits, complications, alternatives, rehab potential for incomplete relief of symptoms, need for further surgery, DVT, PE, , persistent pain, swelling, scarring, weakness, neurovascular injury, hardware failure, nonunion, malunion, bone fracture, potential exposure to pneumonia and wound complications were discussed with the patient. The patient decided to proceed with the procedure as indicated. PROCEDURE DESCRIPTION: The patient was taken to the Operating Suite and placed supine on the operating room table. After identification of the consent and identification of the proper operative site, the patient was sedated. The patient had previously received a spinal epidural anesthetic. The patient was then placed in the left lateral decubitus position with the affected side up and Stulberg positioning device then used to maintain lateral position of the patient. All bony prominences were properly padded and protected. Axillary roll was placed as standard and the leg lengths were determined to be slightly unequal and then the right hip was then sterilely prepped and draped in the usual fashion. A 10-blade scalpel incision was made laterally over the greater trochanter. The incision was deepened through the subcutaneous tissue and meticulous hemostasis with electrocautery. Further deepening of the incision through the layer of the fascia was performed with electrocautery and iliotibial band was then incised with electrocautery. Next, Charnley retractor was placed bother anteriorly and posteriorly at the level of the gluteus tendon. Next, electrocautery was used to make an incision in the vastus lateralis and then sweep was made toward the anterior aspect of the patient along the course of the femoral neck and head. Abductor split was then completed. The gluteus minimus and capsule were then incised and then soft tissue was dissected anteriorly. Next as the soft tissue was dissected anteriorly the lesser trochanter was clearly identified and hip was dislocated with relative ease. Hypertrophic osteophytes were noted circumferentially in addition to multiple fragmented osteophytes and fracture comminution with displacement of the lesser trochanter and posterior proximal femur. The sagittal saw was used to resect the proximal portion of the femoral neck and head approximately one fingerbreadth proximal to the comminuted and displaced lesser trochanter. The head was then removed and next Hohmann retractors were placed anteriorly and posteriorly to the acetabulum. The labrum was excised from the acetabulum with a 20 blade scalpel and long forceps. Next the hip was irrigated with pulsatile lavage and the pulvinar was then excised from the acetabulum. Hohmann retractors were placed anteriorly, superiorly and posteriorly. Next initial acetabular reamer was placed 48 mm medialized to the medial wall and inferiorly to correct for the proximal migration of the dysplastic acetabulum. Next sequential reaming was performed to size 58 mm. Trial acetabulum was then placed and noted to be stable with excellent fit. Next the hip was irrigated with pulsatile lavage with bacitracin additive and 58 cup was impacted and then two 30 mm screws were used to stabilize the acetabular shell. Next Trident X3 10 degree polyethylene insert 36 mm was impacted into the shell. Lap sponge was placed over to protect it. Next, attention was turned toward the proximal femur. The fragmentation and displacement of the proximal femur and greater trochanter was significant requiring significant increase time in surgical preparation and management of the fracture fragments. A portion of the proximal femoral bone fragmentation was resected with a 10 blade scalpel and forceps. An initial attempt was made to restore the fracture fragments and spare the Proximal femoral bone however due to the complexity of the fracture this was impossible. Decision was made then to proceed to a distal fit and modular Onidna components system with a proximal fill design. Initial reamers were passed into the distal femur until scratch fit was achieved at 18 mm by 225 mm. The pulsatile lavage was then used to lavage the femoral canal. Distal implant was then impacted in stable position. Next proximal reaming was performed until proximal fit and fill was achieved. Next proximal modular stem Was impacted and then locked in place with a screw and tensionometer. A Biolox delta ceramic V 40 +5 mm neck and was then impacted onto the femoral component. Next the femoral component and acetabular components were reduced and had excellent fit and feel with minimal shuck and excellent stability in all planes and range of motion. Leg lengths were restored. Range of motion was performed and noted to be completely stable with excellent range of motion, improved to greater degree than prior to surgery. Two 10-Northern Irish single Hemovac drains were placed exiting anterolaterally. Irrigation and soak for 3 minutes was Performed with sterile Betadine solution. Next the hip was irrigated with pulsatile lavage. Ortho mix local anesthetic was injected in and around the hip joint. Next a #5 FiberWire suture was used to close the capsule and gluteus minimum via two small bone tunnels made with 2.4 mm drill bit in the greater trochanter. After FiberWire closure was completed and noted to be stable then 10 Northern Irish drains were placed followed by closure of the vastus lateralis and the gluteus medius. This was closed with #1 Vicryl sutures. Next, the iliotibial band was closed using interrupted [id number] #1 Vicryl sutures. Next, final irrigation was performed with pulsatile lavage and dermis was closed using buried interrupted 2-0 Vicryl suture. The skin was closed with skin thomas. Sterile compressive dressing was applied. The patient was then placed supine and taken to recovery in stable condition. I attest to the content of the Intraoperative Record and any orders documented therein. Any exceptions are noted below. SAJAN
[2019-09-03] MEDS: NICOTINE 14 MG/24 HR PATCH TD SCH (14:54)
[2019-09-03] MEDS: POTASSIUM CHLORIDE 10 MEQ TABCR PO SCH (14:54)
[2019-09-03] MEDS: PROPRANOLOL HCL 10 MG TAB PO SCH ×2 (14:54→20:43)
[2019-09-03] MEDS: POLYETHYLENE (MIRALAX) 17 GM PACK PO SCH ×2 (14:55→20:42)
[2019-09-03] MEDS: FUROSEMIDE 20 MG TAB PO SCH (14:55)
[2019-09-03] MEDS: FOLIC ACID 1 MG TAB PO SCH (14:55)
[2019-09-03] MEDS: UMECLIDINIUM BROMIDE 62.5MCG/BLISTER 7 PUFFS/INHALER INH SCH (14:56)
[2019-09-03] MEDS: ACETAMINOPHEN 500 MG TAB PO SCH ×2 (15:01→20:43)
--- NOTE | 2019-09-03 15:16 | Hospitalist Progress Note ---
Date of Service September 03, 2019 Assessment & Plan (1) Intertrochanteric fracture of femur: (1) Intertrochanteric fracture of femur: Patient is a 59-year-old male with a past medical history of congestive heart failure, COPD, cardiomyopathy, CAD, tobacco abuse, history of avascular necrosis of the right hip and alcohol abuse who presents today for evaluation of a traumatic fall with associated right hip pain diagnosed with right hip intertrochanteric fracture with associated apical pneumothorax secondary to fall. #Intertrochanteric fracture of the femur -pain controlled, now post op and doing well. #Ethanol abuse Patient with a longstanding history of alcohol abuse currently endorsing drinking 1-2 sixpacks per day. fortunately other than tachycardia (which may just be from not getting his usual inderal that he notes is for baseline tachycardia) he shows nothing c/w withdrawal. continue to follow, AWSS scale in place. #Pneumothorax on the right -appreciate pulm and thoracic input - old, trapped lung, asymptomatic. #Chronic systolic CHF Not in acute exacerbation at present -Continue home furosemide 20 mg p.o. daily -Continue propanolol as above -no dyspnea #COPD With CT findings of emphysema, long history of, on Spiriva at home. Does not appear to be in exacerbation and appreciate pulm and thoracic input on appearance on CT - overall clinical picture not c/w active infection -Continue Spiriva -Continue albuterol as needed -Continue sertraline as needed -PRN duo nebs every 4 hours -Placed on antibiotics due to Leukocytosis. #Questionable pneumonia -see above, hold abx, follow. #Tobacco dependence -Patient provided with nicotine replacement therapy #Malnutrition -appears to be protein/calorie malnutrition, probably moderate -Consult dietitian -B12 and folate OK. #hyponatremia: Likely from beer potomania and malnutrition Patient has a poor diet. sodium coming up, can loosen fluid restriction some #Discharge planning -PT/OT/case management Code Status: Full code DVT PPX: start heparin SQ Dispo: MedSural[facility], PT/OT eval and treat, case management for dispo options (2) Pneumonia: (3) ETOH abuse: (4) NSTEMI (non-ST elevated myocardial infarction): h/o above diagnosis. (5) Empyema, right: treated in past. currently not the case. (6) COPD (chronic obstructive pulmonary disease): (7) Cardiomyopathy: Admission and Anticipated Discharge Date Admission Date: August 31, 2019 Subjective feeling good post op no current complaints - jokes around. denies any significant hip pain, no sob. HR up some but notes that he normally takes inderal, hadn't had it yet today. nursing notes no other problems. Review of Systems Review of Systems: All systems reviewed & are unremarkable except as noted in HPI & below Physical Exam Physical Exam: gen - aao pleasant, joking around, nad. heent nc at mmm breathing unlabored no accessory muscles good effort skin no rashes no pallor or icterus neuro no focal deficits Results & Data Results & Data ([facility]) Vital Signs (Past 12 Hours) Vital Signs Temp Pulse Pulse Resp BP BP Pulse Ox 09/03/19 15:03 97.3 F L 117 H 22 116/83 91 09/03/19 14:10 111 H 18 114/76 92 09/03/19 14:00 97.5 F L 114 H 18 111/83 94 09/03/19 13:50 109 H 20 112/81 100 09/03/19 13:40 97.2 F L 112 H 22 112/80 100 09/03/19 07:54 97.7 F 84 16 99/69 L 93 09/03/19 07:07 97.5 F L 84 16 95/62 L 93 09/03/19 03:59 97.9 F 94 H 16 97/65 L 93 PG Care Time/CCT Total # of Minutes Spent Total Time Spent with Patient: Total time spent is greater than 50% in coordination of care (as documented) at patient's floor/unit and/or counseling patient: Coding Level of Care Code 23128 Subseq Hosp Care Lvl 3 Diagnoses Intertrochanteric fracture of femur S72.144A Encounter type: initial encounter Fracture alignment: nondisplaced Fracture type: closed Laterality: right Pneumonia J18.9 ETOH abuse F10.10 NSTEMI (non-ST elevated myocardial infarction) I21.4 Empyema, right J86.9 COPD (chronic obstructive pulmonary disease) J44.9 Cardiomyopathy I42.9 (1) Intertrochanteric fracture of femur Encounter type: initial encounter Fracture alignment: nondisplaced Fracture type: closed Laterality: right Qualified Code(s): S72.144A - Nondisplaced intertrochanteric fracture of right femur, initial encounter for closed fracture
[2019-09-03] MEDS: OXYCODONE HCL IR 5 MG TAB (IMMEDIATE RELEASE) PO PRN (17:03)
[2019-09-03] MEDS: MoRPHine SULFATE 2 MG/ML CARP IV PRN (18:05)
[2019-09-03] MEDS: ALBUTEROL HFA 8 GM INHALER INH PRN ×2 (18:43→21:13)
[2019-09-03] MEDS: CEFAZOLIN 1000MG 1,000 MG/7.5 ML SYR IV SCH (20:42)
[2019-09-03] MEDS: DOCUSATE SODIUM 100 MG CAP PO SCH (20:42)
[2019-09-03] MEDS: MULTIVITAMIN TAB PO SCH (20:43)
[2019-09-04] MEDS: OXYCODONE HCL IR 5 MG TAB (IMMEDIATE RELEASE) PO PRN ×3 (03:08→19:37)
[2019-09-04] MEDS: CEFAZOLIN 1000MG 1,000 MG/7.5 ML SYR IV SCH (05:11)
[2019-09-04] MEDS: ALBUTEROL HFA 8 GM INHALER INH PRN ×3 (05:15→18:39)
[2019-09-04] MEDS: ACETAMINOPHEN 500 MG TAB PO SCH ×3 (05:18→20:59)
[2019-09-04 07:03] LABS: Basophils # (auto) 0.01 K/uL (0-0.2); Basophils % (auto) 0.1 %; Hematocrit (blood only) 27.4 % (42-52); Hemoglobin 9.4 g/dL (14.0-18.0); Immature Granulocytes # (auto) 0.02 K/uL (0.00-0.02); Immature Granulocytes % (auto) 0.2 %; Lymphocytes # (auto) 0.79 K/uL (1.2-3.4); Lymphocytes % (auto) 6.5 %; Mean Corpuscular Hemoglobin 33.2 pg (25-34); Mean Corpuscular Hgb Conc 34.3 g/dL (32-36); Mean Corpuscular Volume 96.8 fL (80-100); Mean Platelet Volume 9.1 fL (7.4-10.4); Monocytes # (auto) 0.95 K/uL (0.11-0.59); Monocytes % (auto) 7.9 %; Neutrophils # (auto) 10.31 K/uL (1.4-6.5); Neutrophils % (auto) 85.3 %; Platelet Count 247 K/uL (130-400); RDW Coefficient of Variation 15.2 % (11.5-14.5); RDW Standard Deviation 53.7 fL (36.4-46.3); Red Blood Count 2.83 M/uL (4.7-6.1); White Blood Count 12.08 K/uL (4.8-10.8)
[2019-09-04 07:33] LABS: Calcium 8.3 mg/dl (8.5-10.1); Creatinine Clr Calc Pharmacy 109.5 ml/min; Est GFR (African American) 134.1; Est GFR (Non-African American) 115.7; Potassium 4.3 mmol/L (3.5-5.1)
--- NOTE | 2019-09-04 08:27 | Orthopedic Progress Note ---
Date of Service September 04, 2019 Assessment & Plan (1) Intertrochanteric fracture of femur: Right Intertrochanteric hip fx / AVN R femoral head POD 1 s/p Right KATERINA (modular stem) PT/OT protocols. PWB RLE. Hip precautions. DVT prophylaxis - Heparin SQ bid, SCD's Pain management as written. Admission and Anticipated Discharge Date Admission Date: August 31, 2019 Subjective Pt awake, alert. Getting ready to eat breakfast. States his pain control is much better today. No other complaints at this time. Physical Exam Physical Exam: Dressings are C/D/I. Calves are soft, NT. NV intact. Leg lengths appear equal. Results & Data ([facility] [place]) Vital Signs (Past 12 Hours) Vital Signs Temp Pulse Pulse Resp BP Pulse Ox 09/04/19 07:51 36.5 C 104 H 18 91/64 L 93 09/04/19 03:00 36.4 C L 103 H 16 104/77 94 09/03/19 23:40 36.4 C L 99 H 16 93/61 L 91 Laboratory Results Laboratory Results WBC 12.08 K/uL (4.8-10.8) H 09/04/19 06:10 RBC 2.83 M/uL (4.7-6.1) L 09/04/19 06:10 Hgb 9.4 g/dL (14.0-18.0) L D 09/04/19 06:10 Hct 27.4 % (42-52) L 09/04/19 06:10 MCV 96.8 fL (80-100) 09/04/19 06:10 MCH 33.2 pg (25-34) 09/04/19 06:10 MCHC 34.3 g/dL (32-36) 09/04/19 06:10 RDW Std Deviation 53.7 fL (36.4-46.3) H 09/04/19 06:10 RDW Coeff of Jm 15.2 % (11.5-14.5) H 09/04/19 06:10 Plt Count 247 K/uL (130-400) 09/04/19 06:10 MPV 9.1 fL (7.4-10.4) 09/04/19 06:10 Immature Gran % (Auto) 0.2 % 09/04/19 06:10 Neut % (Auto) 85.3 % 09/04/19 06:10 Lymph % (Auto) 6.5 % 09/04/19 06:10 Dooly % (Auto) 7.9 % 09/04/19 06:10 Eos % (Auto) 0.0 % 09/04/19 06:10 Baso % (Auto) 0.1 % 09/04/19 06:10 Immature Gran # (Auto) 0.02 K/uL (0.00-0.02) 09/04/19 06:10 Neut # (Auto) 10.31 K/uL (1.4-6.5) H 09/04/19 06:10 Lymph # (Auto) 0.79 K/uL (1.2-3.4) L 09/04/19 06:10 Dooly # (Auto) 0.95 K/uL (0.11-0.59) H 09/04/19 06:10 Eos # (Auto) 0.00 K/uL (0-0.5) 09/04/19 06:10 Baso # (Auto) 0.01 K/uL (0-0.2) 09/04/19 06:10 PT 11.7 Seconds (9.0-12.0) 08/31/19 20:31 INR 1.1 (0.9-1.1) 08/31/19 20:31 APTT 31.6 Seconds (21.0-31.0) H 08/31/19 20:31 PTT Ratio 1.1 08/31/19 20:31 Sodium 131 mmol/L (136-145) L 09/04/19 06:10 Potassium 4.3 mmol/L (3.5-5.1) D 09/04/19 06:10 Chloride 99 mmol/L (98-107) 09/04/19 06:10 Carbon Dioxide 27 mmol/L (21-32) 09/04/19 06:10 Anion Gap 5.0 (3-11) 09/04/19 06:10 BUN 11 mg/dl (7-18) 09/04/19 06:10 Creatinine 0.54 mg/dl (0.6-1.4) L 09/04/19 06:10 Est Cr Clr Drug Dosing 109.5 ml/min 09/04/19 06:10 Est GFR ( Amer) 134.1 09/04/19 06:10 Est GFR (Non-Af Amer) 115.7 09/04/19 06:10 BUN/Creatinine Ratio 20.0 (10-20) 09/04/19 06:10 Glucose 132 mg/dl (70-99) H 09/04/19 06:10 Calcium 8.3 mg/dl (8.5-10.1) L 09/04/19 06:10 Phosphorus 3.0 mg/dl (2.5-4.9) 09/02/19 08:40 Magnesium 2.0 mg/dl (1.8-2.4) 09/02/19 08:40 Total Bilirubin 0.4 mg/dl (0.2-1) D 09/02/19 08:40 AST 14 U/L (15-37) L 09/02/19 08:40 ALT 14 U/L (12-78) 09/02/19 08:40 Alkaline Phosphatase 78 U/L (45-117) 09/02/19 08:40 Total Creatine Kinase 184 U/L (39-308) 08/31/19 20:31 Total Protein 5.5 gm/dl (6.4-8.2) L 09/02/19 08:40 Albumin 2.2 gm/dl (3.4-5.0) L 09/02/19 08:40 Globulin 3.3 gm/dl (2.5-4.0) 09/02/19 08:40 Albumin/Globulin Ratio 0.7 (0.9-2) L 09/02/19 08:40 Vitamin B12 470 pg/ml (211-911) 09/01/19 05:29 Folate 13.28 ng/ml (>5.38) 08/31/19 23:27 Procalcitonin < 0.05 ng/ml (0-0.5) 08/31/19 20:33 Urine Color Yellow 08/31/19 21:15 Urine Appearance Clear (Clear) 08/31/19 21:15 Urine pH 5.5 (4.5-7.5) 08/31/19 21:15 Ur Specific Center 1.017 (1.000-1.030) 08/31/19 21:15 Urine Protein Negative (Negative) 08/31/19 21:15 Urine Glucose (UA) Negative (Negative) 08/31/19 21:15 Urine Ketones 1+ (Negative) H 08/31/19 21:15 Urine Blood 2+ (Negative) H 08/31/19 21:15 Urine Nitrite Negative (Negative) 08/31/19 21:15 Urine Bilirubin Negative (Negative) 08/31/19 21:15 Urine Urobilinogen Negative (Negative) 08/31/19 21:15 Ur Leukocyte Esterase Negative (Negative) 08/31/19 21:15 Urine WBC (Auto) 1-5 /hpf (0-5) 08/31/19 21:15 Urine RBC (Auto) 10-30 /hpf (0-4) H 08/31/19 21:15 U Hyaline Cast (Auto) 1-5 /lpf (0-5) 08/31/19 21:15 U Epithel Cells (Auto) 5-10 /lpf (0-5) H 08/31/19 21:15 Urine Bacteria (Auto) Negative (Negative) 08/31/19 21:15 Urine Osmolality 465 mOsm/kg (500-800) L 08/31/19 21:15 Ur Random Sodium 109 mmol/L 08/31/19 21:15 Ethyl Alcohol mg/dL 12.9 mg/dl (0-3) H 08/31/19 20:31 Blood Type O Positive 08/31/19 20:31 Antibody Screen NEGATIVE 08/31/19 20:31 (1) Intertrochanteric fracture of femur Encounter type: initial encounter Fracture alignment: nondisplaced Fracture type: closed Laterality: right Qualified Code(s): S72.144A - Nondisplaced intertrochanteric fracture of right femur, initial encounter for closed fracture
[2019-09-04] MEDS: POTASSIUM CHLORIDE 10 MEQ TABCR PO SCH (08:47)
[2019-09-04] MEDS: FOLIC ACID 1 MG TAB PO SCH (08:48)
[2019-09-04] MEDS: PROPRANOLOL HCL 10 MG TAB PO SCH ×2 (08:48→20:58)
[2019-09-04] MEDS: FUROSEMIDE 20 MG TAB PO SCH (08:48)
[2019-09-04] MEDS: DOCUSATE SODIUM 100 MG CAP PO SCH ×2 (08:48→20:58)
[2019-09-04] MEDS: UMECLIDINIUM BROMIDE 62.5MCG/BLISTER 7 PUFFS/INHALER INH SCH (08:48)
[2019-09-04] MEDS: HEPARIN SOD 5,000 UNIT/0.5 ML VIAL SQ SCH ×2 (08:51→21:10)
[2019-09-04] MEDS: POLYETHYLENE (MIRALAX) 17 GM PACK PO SCH ×2 (08:56→20:58)
[2019-09-04] MEDS: NICOTINE 14 MG/24 HR PATCH TD SCH (09:25)
--- NOTE | 2019-09-04 11:41 | Pulmonology Progress Note ---
Date of Service September 04, 2019 Assessment & Plan (1) Pneumothorax on right: Impression: 59-year-old male with complicated medical history including prior lung abscess treated with tube thoracostomy. He has persistent radiographic abnormalities which could represent persistent infection although these could also be chronic fibrotic changes related to his prior infection. He was admitted after a fall and associated hip fracture. He does not have any new pulmonary complaints currently. Recommendations: 1. Abnormal CT scan: The patient will require continued radiographic surveillance for the abnormalities identified on his radiograph. A follow-up CT scan in 3 months is recommended. This can be accomplished in the outpatient setting and we would be happy to see him back in follow-up in the pulmonary clinic. 2. COPD: The patient does not appear overtly bronchospastic currently. Continue as needed short acting beta agonist. Continue Incruse. We will pursue a trial of long-acting beta agonist to see if this offers him a clinical benefit. No indication for steroids or additional antimicrobial agents currently. 3. Pulmonary insufficiency: Hypoxemia at baseline. Continue oxygen titrated to keep saturations at or above 88%. Out of bed as permitted by recent hip surgery with ambulation as tolerated. Feel free to contact us should the patient require additional pulmonary input. (2) COPD (chronic obstructive pulmonary disease): (3) Pulmonary nodule: Admission and Anticipated Discharge Date Admission Date: August 31, 2019 Subjective Patient seen and examined. EMR reviewed. The patient states that he is having some slight shortness of breath this morning and believes he would benefit from his albuterol. He underwent hip surgery yesterday. Is back to his baseline oxygen requirement. He is coughing and occasionally expectorating some phlegm. No hemoptysis. No chest pain. No fevers chills or night sweats. Tolerating a diet. Review of Systems Review of Systems: Unchanged from prior Physical Exam Physical Exam: Constitutional: No acute distress HEENT: EOMI, PERRLA Respiratory system: Decreased air entry bilaterally, no crackles, no rhonchi, no wheeze CVS: S1-S2 positive, no murmurs or gallops Abdomen: Soft, nontender, nondistended, positive bowel sounds x4 Extremities: +2 pulses bilaterally radialis/ dorsalis pedis, no cyanosis, no ed jenni, shortening of the right lower extremity appreciated Neuro: Awake alert oriented x3 Psych: Normal mood and affect G/U: No Whitaker Skin: no rashes, warm and dry Lymphatic: no cervical or axillary lymphadenopathy Results & Data Results & Data ([facility]) Vital Signs (Past 12 Hours) Vital Signs Temp Pulse Pulse Resp BP Pulse Ox 09/04/19 07:51 36.5 C 104 H 18 91/64 L 93 09/04/19 03:00 36.4 C L 103 H 16 104/77 94 09/03/19 23:40 36.4 C L 99 H 16 93/61 L 91 Laboratory Results 09/04/19 06:10 09/04/19 06:10 Diagnostic Findings Chest x-ray from yesterday was reviewed which demonstrated the right apical cavitary lesion with trace associated pneumothorax and associated emphysematous changes of the lung. PG Care Time/CCT Total # of Minutes Spent Total Time Spent with Patient: Total time spent is greater than 50% in coordination of care (as documented) at patient's floor/unit and/or counseling patient: Coding Level of Care Code 57102 Subseq Hosp Care Lvl 3 Diagnoses Pneumothorax on right J93.9 COPD (chronic obstructive pulmonary disease) J44.9 Pulmonary nodule R91.1 Time Spent (min) 35
[2019-09-04] MEDS: MULTIVITAMIN TAB PO SCH (20:58)
[2019-09-04] MEDS: CALCIUM CARBONATE 500 MG CHEWABLE TAB PO PRN (22:18)
[2019-09-05] MEDS: ACETAMINOPHEN 500 MG TAB PO SCH (05:21)
[2019-09-05 06:08] LABS: Hematocrit (blood only) 26.8 % (42-52); Mean Corpuscular Hemoglobin 32.8 pg (25-34); Mean Corpuscular Hgb Conc 33.6 g/dL (32-36); Mean Corpuscular Volume 97.8 fL (80-100); Mean Platelet Volume 8.8 fL (7.4-10.4); Platelet Count 270 K/uL (130-400); RDW Coefficient of Variation 15.5 % (11.5-14.5); RDW Standard Deviation 55.2 fL (36.4-46.3); Red Blood Count 2.74 M/uL (4.7-6.1); White Blood Count 13.98 K/uL (4.8-10.8)
[2019-09-05] MEDS: HEPARIN SOD 5,000 UNIT/0.5 ML VIAL SQ SCH (08:38)
[2019-09-05] MEDS: FUROSEMIDE 20 MG TAB PO SCH (08:42)
[2019-09-05] MEDS: PROPRANOLOL HCL 10 MG TAB PO SCH (08:43)
[2019-09-05] MEDS: DOCUSATE SODIUM 100 MG CAP PO SCH (08:43)
[2019-09-05] MEDS: FOLIC ACID 1 MG TAB PO SCH (08:43)
[2019-09-05] MEDS: POTASSIUM CHLORIDE 10 MEQ TABCR PO SCH (08:43)
[2019-09-05] MEDS: POLYETHYLENE (MIRALAX) 17 GM PACK PO SCH (08:44)
[2019-09-05] MEDS: NICOTINE 14 MG/24 HR PATCH TD SCH (08:44)
[2019-09-05] MEDS: UMECLIDINIUM BROMIDE 62.5MCG/BLISTER 7 PUFFS/INHALER INH SCH (08:45)
[2019-09-05] MEDS: ALBUTEROL HFA 8 GM INHALER INH PRN (10:25)
[2019-09-05] MEDS: OXYCODONE HCL IR 5 MG TAB (IMMEDIATE RELEASE) PO PRN (10:25)
--- NOTE | 2019-09-05 10:30 | Discharge Summary ---
Date of Service September 05, 2019 Principal Diagnosis Right intertrochanteric hip fracture with AVN of the femoral head Discharge Exam Constitutional well developed, + thin and + frail appearing; no acute distress Eyes PERRL, conjunctivae normal, anicteric sclerae ENMT external ear and nose normal, oropharynx normal Neck trachea midline, no thyromegaly Respiratory normal respiratory effort, lungs clear to auscultation Cardiovascular RRR, no murmur, no edema Gastrointestinal (Abdomen) normal bowel sounds, soft, nontender, no hepatosplenomegaly Musculoskeletal Head/Neck/Chest: normocephalic and head atraumatic Extremities: + abnormal strength (generalized weakness) and + muscle atrophy; no cyanosis and no clubbing Skin no rashes, warm and dry Neurologic patellar DTR's 2+ bilat, sensation intact and PERRL, EOMI, accommodation nl, no face palsy, no dysarthria Psychiatric A+Ox3, euthymic affect Lymphatic no cervical or axillary lymphadenopathy Discharge Data Allergies Allergy/AdvReac Type Severity Reaction Status Date / Time erythromycin base Allergy Unknown Unknown Verified 09/03/19 07:54 Penicillins Allergy Unknown Unknown Verified 09/03/19 07:54 NITRATES IN PROCESSED MEATS Allergy Severe Difficulty Uncoded 09/03/19 07:54 Breathing Consultations 08/31/19 21:12 ED Decision to Admit Stat 08/31/19 22:34 Consult Case Management - Discharge Planning Routine Consult Orthopedic Surgery Stat Consult Pulmonology Stat Procedures Performed Operation Date: 09/03/19 08:30 Actual Procedures p Right Total Hip Arthroplasty with Modular Stem and Body(Right) - Leon Tomlin, Ordered Studies 08/31/19 19:10 CT abd pelvis wo con Stat CT cervical spine wo con Stat CT head/brain wo con Stat 09/01/19 11:31 CT chest wo con Urgent Hospital Course (1) Intertrochanteric fracture of femur: (1) Intertrochanteric fracture of femur: Patient is a 59-year-old male with a past medical history of congestive he art failure, COPD, cardiomyopathy, CAD, tobacco abuse, history of avascular necrosis of the right hip and alcohol abuse who presents today for evaluation of a traumatic fall with associated right hip pain diagnosed with right hip intertrochanteric fracture with associated apical pneumothorax secondary to fall. #Intertrochanteric fracture of the femur -pain controlled with oxycodone patient is s/p right KATERINA by Dr. Sada henriquez for discharge from orthopedic standpoint, will go to [facility] will be on Eliquis 2.5mg BID for next month for DVT prophylaxis, can stop Eliquis after that time #Ethanol abuse Patient with a longstanding history of alcohol abuse currently endorsing drinking 1-2 sixpacks per day orders placed for withdrawal scale and treatment, however, he never exhibited any serious signs/symptoms of withdrawal, no Ativan needed consider allowing patient to have 2-3 beers at rehab if policy allows, otherwise, observe for any signs of withdrawal and treat as needed #Pneumothorax on the right -appreciate pulm and thoracic input - old, trapped lung, asymptomatic. Dr. Nelson recommends repeat CT of the chest in 3 months and pulmonary follow up no signs of infection, no antibiotics prescribed #Chronic systolic CHF Not in acute exacerbation at present -Continue home furosemide 20 mg p.o. daily -Continue propanolol as above -no dyspnea #COPD With CT findings of emphysema, long history of, on Spiriva at home. Does not appear to be in exacerbation and appreciate pulm and thoracic input on appearance on CT - overall clinical picture not c/w active infection -Continue Spiriva -Continue albuterol as needed -Continue sertraline as needed -PRN duo nebs every 4 hours #Questionable pneumonia -see above, hold abx, follow. #Tobacco dependence -Patient provided with nicotine replacement therapy can continue patch if needed at rehab #Malnutrition -appears to be protein/calorie malnutrition, probably moderate -Consult dietitian -B12 and folate OK. #hyponatremia: Likely from beer potomania and malnutrition Patient has a poor diet. sodium coming up #Discharge planning -PT/OT/case management Code Status: Full code DVT PPX: start heparin SQ Dispo: MedSurg, PT/OT eval and treat, case management for dispo options (2) ETOH abuse: see above (3) Empyema, right: treated in past. currently not the case. (4) COPD (chronic obstructive pulmonary disease): (5) Cardiomyopathy: (6) Severe protein-calorie malnutrition: (7) Anemia: Hb down to 9.0 after surgery, BP stable, no signs of further blood loss encourage nutrition (8) Tobacco dependence: (9) Hyponatremia: stable, see above Total Time Total Time Spent Total Time Spent (In Minutes): 33 minutes Total Time Includes: Examination of the Patient, Discharge Planning, Medication Reconciliation and Communication With Other Providers (orthopedic surgery) Discharge Plan Discharge Items Patient Disposition: Transfer Inpatient Rehab Fac Reason For Visit: FRACTURE Discharge Diagnosis: Hip fracture, s/p total hip arthroplasty Abnormal CT chest Condition on Discharge: Good Goals: improve strength and mobility improve nutrition and hydration follow up CT chest in three months with pulmonary follow up Activity: Per Instructions section Non-emergency contact: Surgeon Call non-emergency contact if: you have any medication questions, your symptoms worsen, your pain is not controlled and you have a fever Follow-up/Referrals: PT,DECLINED [Primary Care Provider] - Diet: Regular Addtl Attending Provider Instructions: see orthopedic instructions for hip arthroplasty will be on Eliquis 2.5mg BID for the next month for DVT prophylaxis Eliquis coverage card will be faxed to [facility] by my nurse navigator Alcohol abuse: patient currently without any signs of withdrawal, but only 2-3 days without alcohol typically drinks 1-2 six packs a day if possible would recommend allowing the patient to drink beer while in rehab, just a few drinks in the evening watch for any signs of withdrawal Atypical CT of the chest h/o lung abscess, was treated with VATS in the past now has some abnormalities, scarring, no evidence of active infection, not treated with antibiotics Dr. Nelson recommends a repeat CT of the chest in 3 months with pulmonary follow up Addtl Dressing Room Attendant Provider Instructions: ACTIVITY RECOMMENDATIONS: SELF CARE INSTRUCTIONS AFTER TOTAL HIP REPLACEMENT Until the incision and soft tissues around your hip have healed, there is a possibility that the hip prosthesis could dislocate. A. Observe the following precautions to prevent dislocation: 1. Don't bend your hip greater than 90 degrees. 2. Avoid crossing your legs or ankles while standing or lying. 3. Sit with your feet placed 6 inches apart. 4. When sitting, keep your knees below your hips. Sit on a firm surface, avoid deep, soft chairs and couches. Use an elevated toilet seat in the bathroom. 5. Don't bend over at the waist. Use a long handled shoehorn and a sock aid to help you put on your shoes and socks. A cement block maker can help you picking crew supervisor objects that are too high or too low to reach. 6. Keep car riding to a minimum for at least one month after surgery. B. Your balance may be shaky for a while. Use crutches or a walker until directed by your doctor. C. Use hand rails when walking on stairs. D. Wear low heeled shoes with non-slip soles. E. Be sure that your floors are free of things that could trip you - throw rugs, electrical cords, small objects. Avoid wet and waxed floors, especially with crutches and canes. F. Try to walk several times a day with rest periods between. G. Continue with all the exercises taught to you in the hospital. Again, make walking a part of your daily routine. SPECIAL CARE INSTRUCTIONS: VERY IMPORTANT TO READ AND REVIEW A. You may still be at risk for phlebitis and blood clots. 1. Wear surgical stockings (FAY hose) for 2 weeks after surgery to improve circulation and reduce swelling. 2. You will be taking a blood thinner for 4 weeks or as directed by your doctor. B. You must take antibiotics before having dental work, bladder, bowel and other surgery. Your doctor will provide you with a permanent card to carry describing precautions. C. Call [facility] if you have a fever, redness or swelling around the incision, cloudy drainage from incision, or sudden increase in pain in your hip, not relieved by your regular pain medication. D. Please call the office at if you have any concerns or questions about your operation or recovery. * YOU MAY SHOWER, NO TUB BATHS UNTIL CLEARED BY YOUR DOCTOR. * WEAR FAY HOSE 20 HOURS PER DAY FOR 2 WEEKS. * YOU SHOULD USE A WALKER OR CRUTCHES FOR 2-4 WEEKS. THIS WILL HELP PREVENT STRAIN ON YOUR HIP MUSCLE AND ALLOW IT TO HEAL PROPERLY. YOU MAY WEAN TO A CANE TOLERATED. * MOST PATIENTS WILL HAVE HOME NURSING FOR THERAPY. IF YOU DECIDE TO DO OUTPATIENT PHYSICAL THERAPY, PLEASE SCHEDULE THIS 3 TIMES PER WEEK. * Daily dressing changes for the right hip wound. Keep wound covered with dressing until seen back in the office. . FOLLOW UP VISIT: If appointment is not already scheduled: Please call [facility] to make a follow-up appointment with Dr. Tomlin 2 weeks after your surgery at . Pending Studies at Discharge: No Stand-Alone Forms: My XD Nutrition, Opioid Pain Management Skilled Items Patient informed of condition?: Yes DNR: No Discharge Level of Care: Acute rehab Communicable Disease: No Discharge Prognosis: Stable Lines: None Urinary Catheter: No Medications and DC Order Prescriptions: New oxycodone 5 mg Tablet 5 - 10 mg PO Q4H PRN (Reason: pain) 10 Days Qty: 20 RF: 0 Eliquis 2.5 mg tablet 2.5 mg PO BID Qty: 60 RF: 1 Continued propranolol 10 mg tablet 15 mg PO BID Qty: 45 RF: 1 furosemide [Lasix] 20 mg tablet 20 mg PO DAILY Qty: 10 RF: 0 potassium chloride [Klor-Con 10] 10 mEq tablet extended release 10 meq PO DAILY 10 Days Qty: 10 RF: 0 Spiriva with HandiHaler 18 mcg Capsule, W/Inhalation Device 1 cap INHALATION DAILY RF: 0 acetaminophen 325 mg Tablet 650 mg PO Q6H PRN (Reason: pain/temp over 101) RF: 0 albuterol sulfate [Ventolin HFA] 90 mcg/actuation HFA aerosol inhaler 1 - 2 puff inhalation .Q4-6HRS PRN (Reason: Shortness Of Breath Or Wheezing) RF: 0 cetirizine 10 mg tablet 10 mg PO DAILY PRN (Reason: Allergy Symptoms) RF: 0 multivitamin [Daily-Deanne] Tablet 1 tab PO QPM Qty: 30 RF: 0 Discharge Orders: Discharge Order (Routine); Ordered 09/05/19 Ordered By: Marcel Mendenhall/Other Patient Handouts: Hip How Works, Hip Replace Total Admission Data Admit Date/Time: 08/31/19 22:48 Attending Provider: Marcel Lizama Admit Provider: Olivier Plunkett I. Primary Care Provider: CHELSEA WATERS Other Providers: [facility] ; Rajeev Quinn ; Kwabena Lara ; Roderick Rojas ; Leon Tomlin ; Hemant Carballo ; Sana Francisco Thomas J ; Elli Hurtado ; Hiram Díaz ; Maximilian Hawk ; Mychal Goss ; Maximilian Saha ; Renzo Cabrera ; Mychal Ji ; Carlos Enrique Rosario ; Shreyas Lr ; Taqueria Viramontes ; Cameron Cuba ; Austin Hahn ; Elli Waldron ; Ivan Nichole ; Kwaku Ball ; Tamara Good ; Marquise Davidson ; Farideh Goncalves Other Interventions: Discharge Summary Assessment (RN) Last Done: 09/05/19 10:20 DC Date/Time DO NOT enter until pt leaves facility: 09/05/19 11:33 Coding Level of Care Code D/C Day Management >30 mins Diagnoses Intertrochanteric fracture of femur S72.144A Encounter type: initial encounter Fracture alignment: nondisplaced Fracture type: closed Laterality: right ETOH abuse F10.10 Empyema, right J86.9 COPD (chronic obstructive pulmonary disease) J44.9 Cardiomyopathy I42.9 Severe protein-calorie malnutrition E43 Anemia D64.9 Tobacco dependence F17.200 Hyponatremia E87.1
--- NOTE | 2019-09-05 10:31 | Orthopedic Progress Note ---
Date of Service September 05, 2019 Assessment & Plan (1) Intertrochanteric fracture of femur: Right Intertrochanteric hip fx / AVN R femoral head POD 2 s/p Right KATERINA (modular stem) PT/OT protocols. PWB RLE. Hip precautions. DVT prophylaxis - Heparin SQ bid, SCD's. Dr. Lizama to decide final anticoagulation choice for 4 weeks upon discharge. Pain management as written. Discharge planning-plan for [facility] today. Discussed case with Dr. Lizama this morning. Admission and Anticipated Discharge Date Admission Date: August 31, 2019 Subjective Patient awake and alert. Sitting up in bed. No complaints at this time. When discussing his hip, he states he has some pain off and on but is tolerating well. Denies any shortness of breath, chest pain, lightheadedness at this time. Physical Exam Physical Exam: Dressing is clean, dry, and intact. There is no erythema around the dressing itself and the thighs soft. He has a dressing over where his drain was and this dressing is moderately saturated due to drainage from the drain site. Calves are soft and nontender. Neurovascular is intact. Toes are mobile. Leg lengths appear equal. Results & Data ([facility]) Vital Signs (Past 12 Hours) Vital Signs Temp Pulse Pulse Resp BP BP Pulse Ox 09/05/19 10:20 36.5 C 79 76 18 100/67 94/67 L 97 09/05/19 07:59 36.5 C 79 18 100/67 97 09/04/19 23:10 36.6 C 76 16 94/67 L 96 Laboratory Results Laboratory Results WBC 13.98 K/uL (4.8-10.8) H 09/05/19 05:45 RBC 2.74 M/uL (4.7-6.1) L 09/05/19 05:45 Hgb 9.0 g/dL (14.0-18.0) L 09/05/19 05:45 Hct 26.8 % (42-52) L 09/05/19 05:45 MCV 97.8 fL (80-100) 09/05/19 05:45 MCH 32.8 pg (25-34) 09/05/19 05:45 MCHC 33.6 g/dL (32-36) 09/05/19 05:45 RDW Std Deviation 55.2 fL (36.4-46.3) H 09/05/19 05:45 RDW Coeff of Jm 15.5 % (11.5-14.5) H 09/05/19 05:45 Plt Count 270 K/uL (130-400) 09/05/19 05:45 MPV 8.8 fL (7.4-10.4) 09/05/19 05:45 Immature Gran % (Auto) 0.2 % 09/04/19 06:10 Neut % (Auto) 85.3 % 09/04/19 06:10 Lymph % (Auto) 6.5 % 09/04/19 06:10 Donley % (Auto) 7.9 % 09/04/19 06:10 Eos % (Auto) 0.0 % 09/04/19 06:10 Baso % (Auto) 0.1 % 09/04/19 06:10 Immature Gran # (Auto) 0.02 K/uL (0.00-0.02) 09/04/19 06:10 Neut # (Auto) 10.31 K/uL (1.4-6.5) H 09/04/19 06:10 Lymph # (Auto) 0.79 K/uL (1.2-3.4) L 09/04/19 06:10 Donley # (Auto) 0.95 K/uL (0.11-0.59) H 09/04/19 06:10 Eos # (Auto) 0.00 K/uL (0-0.5) 09/04/19 06:10 Baso # (Auto) 0.01 K/uL (0-0.2) 09/04/19 06:10 PT 11.7 Seconds (9.0-12.0) 08/31/19 20:31 INR 1.1 (0.9-1.1) 08/31/19 20:31 APTT 31.6 Seconds (21.0-31.0) H 08/31/19 20:31 PTT Ratio 1.1 08/31/19 20:31 Sodium 131 mmol/L (136-145) L 09/04/19 06:10 Potassium 4.3 mmol/L (3.5-5.1) D 09/04/19 06:10 Chloride 99 mmol/L (98-107) 09/04/19 06:10 Carbon Dioxide 27 mmol/L (21-32) 09/04/19 06:10 Anion Gap 5.0 (3-11) 09/04/19 06:10 BUN 11 mg/dl (7-18) 09/04/19 06:10 Creatinine 0.54 mg/dl (0.6-1.4) L 09/04/19 06:10 Est Cr Clr Drug Dosing 109.5 ml/min 09/04/19 06:10 Est GFR ( Amer) 134.1 09/04/19 06:10 Est GFR (Non-Af Amer) 115.7 09/04/19 06:10 BUN/Creatinine Ratio 20.0 (10-20) 09/04/19 06:10 Glucose 132 mg/dl (70-99) H 09/04/19 06:10 Calcium 8.3 mg/dl (8.5-10.1) L 09/04/19 06:10 Phosphorus 3.0 mg/dl (2.5-4.9) 09/02/19 08:40 Magnesium 2.0 mg/dl (1.8-2.4) 09/02/19 08:40 Total Bilirubin 0.4 mg/dl (0.2-1) D 09/02/19 08:40 AST 14 U/L (15-37) L 09/02/19 08:40 ALT 14 U/L (12-78) 09/02/19 08:40 Alkaline Phosphatase 78 U/L (45-117) 09/02/19 08:40 Total Creatine Kinase 184 U/L (39-308) 08/31/19 20:31 Total Protein 5.5 gm/dl (6.4-8.2) L 09/02/19 08:40 Albumin 2.2 gm/dl (3.4-5.0) L 09/02/19 08:40 Globulin 3.3 gm/dl (2.5-4.0) 09/02/19 08:40 Albumin/Globulin Ratio 0.7 (0.9-2) L 09/02/19 08:40 Vitamin B12 470 pg/ml (211-911) 09/01/19 05:29 Folate 13.28 ng/ml (>5.38) 08/31/19 23:27 Procalcitonin < 0.05 ng/ml (0-0.5) 08/31/19 20:33 Urine Color Yellow 08/31/19 21:15 Urine Appearance Clear (Clear) 08/31/19 21:15 Urine pH 5.5 (4.5-7.5) 08/31/19 21:15 Ur Specific [place] 1.017 (1.000-1.030) 08/31/19 21:15 Urine Protein Negative (Negative) 08/31/19 21:15 Urine Glucose (UA) Negative (Negative) 08/31/19 21:15 Urine Ketones 1+ (Negative) H 08/31/19 21:15 Urine Blood 2+ (Negative) H 08/31/19 21:15 Urine Nitrite Negative (Negative) 08/31/19 21:15 Urine Bilirubin Negative (Negative) 08/31/19 21:15 Urine Urobilinogen Negative (Negative) 08/31/19 21:15 Ur Leukocyte Esterase Negative (Negative) 08/31/19 21:15 Urine WBC (Auto) 1-5 /hpf (0-5) 08/31/19 21:15 Urine RBC (Auto) 10-30 /hpf (0-4) H 08/31/19 21:15 U Hyaline Cast (Auto) 1-5 /lpf (0-5) 08/31/19 21:15 U Epithel Cells (Auto) 5-10 /lpf (0-5) H 08/31/19 21:15 Urine Bacteria (Auto) Negative (Negative) 08/31/19 21:15 Urine Osmolality 465 mOsm/kg (500-800) L 08/31/19 21:15 Ur Random Sodium 109 mmol/L 08/31/19 21:15 Ethyl Alcohol mg/dL 12.9 mg/dl (0-3) H 08/31/19 20:31 Blood Type O Positive 08/31/19 20:31 Antibody Screen NEGATIVE 08/31/19 20:31 (1) Intertrochanteric fracture of femur Encounter type: initial encounter Fracture alignment: nondisplaced Fracture type: closed Laterality: right Qualified Code(s): S72.144A - Nondisplaced intertrochanteric fracture of right femur, initial encounter for closed fracture
[2019-09-05] MEDS: CALCIUM CARBONATE 500 MG CHEWABLE TAB PO PRN (10:49)
== END 2019-09-05 11:33 | DRG 469 ==
LOC: ED 19:01 → 3E 22:48 → SUATTDRO 22:48 → 3E 23:30

== ENCOUNTER 2020-07-20 14:54 | Observation (INO) ==
[2020-07-20] MEDS ORDERED: oxyCODONE HCL IR 5 MG TAB (IMMEDIATE RELEASE) PO STA (15:14)
[2020-07-20] MEDS ORDERED: IBUPROFEN 200 MG TAB PO STA (15:15)
--- NOTE | 2020-07-20 15:15 | Emergency Department Note ---
Impression & Plan Closed compression fracture of lumbar vertebra, Alcohol abuse, Acute hyponatremia ED Provider Note NAME: ELISE BARAHONA AGE: 60 SEX: M : 1960 ARRIVES VIA: Ambulance INFORMANT: Patient ED PROVIDER(S): Jairo Anderson DO CHIEF COMPLAINT: Back pain HPI: Patient is a 60-year-old gentleman with a past medical history of alcohol abuse, long-term anticoagulation, COPD, pneumothorax who presents the ER following a mechanical fall. He was walking into his bedroom last night around 8 PM. He tripped and fell onto his buttock. He did not hit his head or neck. No loss consciousness. No dizziness or lightheadedness. No chest pain or shortness of breath. Back pain is about a 7 out of 10 And is located in the lower back. Is worse with movement. Improves with rest. Denies any new weakness or numbness in the arms or legs. Notes he always has some decreased range of motion of right lower extremity. ROS: See above HPI for pertinent positives & negatives. A total of 10 systems reviewed and were otherwise negative. PAST MEDICAL HISTORY:See Below PAST SURGICAL HISTORY:See Below FAMILY HISTORY:See Below SOCIAL HISTORY:See Below HOME MEDICATIONS:See Below ALLERGIES:See Below VITALS:See Below PHYSICAL EXAMINATION: GENERAL: Sitting up in bed, alert, well appearing, well nourished, no distress, non-toxic EYE EXAM: normal conjunctiva. OROPHARYNX: no exudate, no erythema, lips, buccal mucosa, and tongue normal and mucous membranes are moist NECK: supple, no nuchal rigidity, no adenopathy, non-tender LUNGS: Clear to auscultation. Normal chest wall mechanics HEART: no murmurs, S1 normal and S2 normal ABDOMEN: abdomen soft, non-tender, normo-active bowel sounds, no masses, no rebound or guarding. BACK: Back is symmetrical on inspection and there is no deformity, midline tenderness in the mid lumbar region, no CVA tenderness. UPPER EXTREMITIES: upper extremities are grossly normal. LOWER EXTREMITIES: Flexion-extension of bilateral hips, knees, ankles and EHL 5 out of 5 on the left. Weak on the right with flexion extension at the hip unc hanged from old hip surgery. NEURO EXAM: Normal sensorium, cranial nerves II-XII grossly intact, normal speech, no gross weakness of arms, no gross weakness of legs. MEDICAL DECISION MAKING: Patient is a 60-year-old male who presents the ER following mechanical fall last night onto his buttocks. He denies hitting his head or neck. No loss of consciousness. He has severe pain in his lower mid lumbar region. IV was established blood work was obtained. Labs show no significant leukocytosis or anemia. BMP with a moderate hyponatremia 124 which I do favor secondary to the alcohol use. LFTs bilirubin was unremarkable. Covid was negative. CT lumbar spine shows compression fracture of L2 with 50% loss of height and small amount of retropulsion. Patient denies any new tingling or numbness. His right lower extremity is weak but he notes it is always weaker due to previous surgeries. Patient was given IV pain medications and fluids. He was updated bedside. He was given a Ventolin inhaler as he normally uses this. He was discussed with the hospitalist and admitted for further work-up. Triage Nursing notes reviewed. Limited review of prior medical records performed Vital Signs: reviewed and remarkable for no significant abnormalities Differential diagnosis: Differential diagnoses includes but is not limited to lumbar radiculopathy, kidney stone, muscle strain, facture, cauda equina, mass, and disc herniation. ER treatment provided: See below Diagnostics interpreted by me: Cardiac Monitoring: An order was placed for continuous cardiac monitoring. The monitor shows a rate of 65 with sinus rhythm. Laboratory studies: As stated above and show below. Imaging studies: X-rays of the thoracic spine showed no acute fractures in the thoracic spine CT lumbar spine shows fracture of L2 with 50% loss of height and small amount of retropulsion Consultation(s): Discussed with Dr. Rojas who agrees with admission and he will evaluate as a consult Discussed with the hospitalist Dr. Quinn for further evaluation Procedures: none Critical Care: None Past Med/Surg History Medical History (Updated 07/20/20 @ 18:02 by Jairo Anderson DO) Abdominal mass removed at [facility] - he cannot recall details; he was in 3rd grade Avascular necrosis of hip right COPD (chronic obstructive pulmonary disease) Elevated troponin GI bleed Surgical History (Updated 12/24/19 @ 14:36 by APURVA Hair) History of hip surgery Hx of appendectomy Family History Father Hairy cell leukemia Mother Multiple myeloma Social History Smoking Status: Current every day smoker Tobacco Type: Cigarettes Age Started Using Tobacco: 16; packs per day: 1; Cigarettes Per Day: 30; Second Hand Exposure: Yes; Hx Alcohol Use: Yes (last drink around 1700 08/31/2019) Alcohol type: beer Alcohol Intake Frequency Comment: 4-6 beers/day Hx Substance Use: No Preferred Language: Turkish Communication Ability: Effective 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: No Beliefs That Will Affect Care: None marital status: Single marital status details: no children Current Living Situation: Spouse Current Living Situation Comment: lives in [place] by himself current occupational status: disabled other: 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 Feels Safe at Home: Yes Assistive Devices: Glasses and Walker Allergies Allergies Allergy/AdvReac Type Severity Reaction Status Date / Time erythromycin base Allergy Unknown Unknown Verified 07/20/20 16:23 Penicillins Allergy Unknown Unknown Verified 07/20/20 16:23 NITRATES IN PROCESSED MEATS Allergy Severe Difficulty Uncoded 07/20/20 16:23 Breathing Home Meds Home Medications Medication Instructions Recorded Confirmed cetirizine 10 mg PO DAILY PRN 12/29/18 07/20/20 acetaminophen [Tylenol Extra 1,000 mg PO Q6H PRN 07/20/20 07/20/20 Strength] bupropion HCl [Wellbutrin SR] 150 mg PO BID 07/20/20 07/20/20 multivitamin [Daily-Deanne] 1 tab PO DAILY 07/20/20 07/20/20 propranolol 10 mg PO TID 07/20/20 07/20/20 Previous Rx's Medication Instructions Recorded umeclidinium 62.5 mcg/actuation 1 puffs INH DAILY #30 ea 09/20/19 blister powder for inhalation nebulizers #1 ea 12/25/19 rivaroxaban 10 mg tablet 10 mg PO DAILY #90 tab 03/05/20 albuterol sulfate 2.5 mg INHALATION QID PRN #90 ml 06/05/20 albuterol sulfate 90 mcg/actuation 1 - 2 puff INHALATION .Q4-6HRS PRN 06/06/20 aerosol inhaler #18 gm Results & Data (ED) Vital Signs Vital Signs - 24 hr 07/20/20 15:06 07/20/20 15:16 07/20/20 15:20 Temperature 36.9 C Temperature Source Oral Pulse Rate 72 82 71 Pulse Rate [Apical] 70 Pulse Rate from SpO2 Sensor Respiratory Rate 23 20 19 Respiratory Effort / Characteristics Non-Labored Spontaneous Respiratory Depth Normal Respiratory Pattern Regular Blood Pressure 145/87 H 145/87 H Blood Pressure [Right Arm] 145/87 H Blood Pressure Mean 106 106 Blood Pressure Mean [Right Arm] 106 Pulse Oximetry 94 Oxygen Delivery Method Room Air Sepsis Recent Fever Within 48 Hours No Sepsis New/Unexplained Change in Mental Status No Sepsis Action Taken by Nursing No Action Required 07/20/20 15:50 07/20/20 15:51 07/20/20 15:52 Temperature Temperature Source Pulse Rate 77 71 Pulse Rate [Apical] Pulse Rate from SpO2 Sensor 76 78 71 Respiratory Rate 15 22 Respiratory Effort / Characteristics Respiratory Depth Respiratory Pattern Blood Pressure 148/95 H Blood Pressure [Right Arm] Blood Pressure Mean 112 Blood Pressure Mean [Right Arm] Pulse Oximetry 96 97 97 Oxygen Delivery Method Sepsis Recent Fever Within 48 Hours Sepsis New/Unexplained Change in Mental Status Sepsis Action Taken by Nursing 07/20/20 16:00 07/20/20 16:01 07/20/20 16:30 Temperature Temperature Source Pulse Rate 71 73 70 Pulse Rate [Apical] Pulse Rate from SpO2 Sensor 72 73 71 Respiratory Rate 17 15 20 Respiratory Effort / Characteristics Respiratory Depth Respiratory Pattern Blood Pressure 136/91 Blood Pressure [Right Arm] Blood Pressure Mean 106 Blood Pressure Mean [Right Arm] Pulse Oximetry 91 97 96 Oxygen Delivery Method Room Air Sepsis Recent Fever Within 48 Hours Sepsis New/Unexplained Change in Mental Status Sepsis Action Taken by Nursing 07/20/20 17:00 Temperature Temperature Source Pulse Rate 68 Pulse Rate [Apical] Pulse Rate from SpO2 Sensor 68 Respiratory Rate 22 Respiratory Effort / Characteristics Respiratory Depth Respiratory Pattern Blood Pressure 145/92 H Blood Pressure [Right Arm] Blood Pressure Mean 109 Blood Pressure Mean [Right Arm] Pulse Oximetry 95 Oxygen Delivery Method Sepsis Recent Fever Within 48 Hours Sepsis New/Unexplained Change in Mental Status Sepsis Action Taken by Nursing Laboratory Data Result diagrams: 07/20/20 16:26 07/20/20 16:26 Lab Results 07/20/20 07/20/20 07/20/20 Range/Units 16:22 16:22 16:26 WBC 9.82 (4.8-10.8) K/uL RBC 4.50 L (4.7-6.1) M/uL Hgb 15.1 (14.0-18.0) g/dL Hct 43.0 (42-52) % MCV 95.6 (80-100) fL MCH 33.6 (25-34) pg MCHC 35.1 (32-36) g/dL RDW Std Deviation 44.0 (36.4-46.3) fL RDW Coeff of Jm 12.5 (11.5-14.5) % Plt Count 253 (130-400) K/uL MPV 8.9 (7.4-10.4) fL Immature Gran % (Auto) 0.1 % Neut % (Auto) 85.8 % Lymph % (Auto) 7.8 % Bowman % (Auto) 5.9 % Eos % (Auto) 0.3 % Baso % (Auto) 0.1 % Neut # (Auto) 8.42 H (1.4-6.5) K/uL Lymph # (Auto) 0.77 L (1.2-3.4) K/uL Bowman # (Auto) 0.58 (0.11-0.59) K/uL Eos # (Auto) 0.03 (0-0.5) K/uL Baso # (Auto) 0.01 (0-0.2) K/uL Immature Gran # (Auto) 0.01 (0.00-0.02) K/uL Sodium (136-145) mmol/L Potassium (3.5-5.1) mmol/L Chloride (98-107) mmol/L Carbon Dioxide (21-32) mmol/L Anion Gap (3-11) BUN (7-18) mg/dl Creatinine (0.6-1.4) mg/dl Est Cr Clr Drug Dosing ml/min Est GFR ( Amer) Est GFR (Non-Af Amer) BUN/Creatinine Ratio (10-20) Glucose (70-99) mg/dl Calcium (8.5-10.1) mg/dl Total Bilirubin (0.2-1) mg/dl AST (15-37) U/L ALT (12-78) U/L Alkaline Phosphatase (45-117) U/L Total Protein (6.4-8.2) gm/dl Albumin (3.4-5.0) gm/dl Globulin (2.5-4.0) gm/dl Albumin/Globulin Ratio (0.9-2) COVID-19 Eval [facility] SARS-CoV-2, RNA, NAAT NEGATIVE (NEGATIVE) 07/20/20 Range/Units 16:26 WBC (4.8-10.8) K/uL RBC (4.7-6.1) M/uL Hgb (14.0-18.0) g/dL Hct (42-52) % MCV (80-100) fL MCH (25-34) pg MCHC (32-36) g/dL RDW Std Deviation (36.4-46.3) fL RDW Coeff of Jm (11.5-14.5) % Plt Count (130-400) K/uL MPV (7.4-10.4) fL Immature Gran % (Auto) % Neut % (Auto) % Lymph % (Auto) % Bowman % (Auto) % Eos % (Auto) % Baso % (Auto) % Neut # (Auto) (1.4-6.5) K/uL Lymph # (Auto) (1.2-3.4) K/uL Bowman # (Auto) (0.11-0.59) K/uL Eos # (Auto) (0-0.5) K/uL Baso # (Auto) (0-0.2) K/uL Immature Gran # (Auto) (0.00-0.02) K/uL Sodium 124 L (136-145) mmol/L Potassium 5.1 (3.5-5.1) mmol/L Chloride 91 L (98-107) mmol/L Carbon Dioxide 25 (21-32) mmol/L Anion Gap 7.0 (3-11) BUN 7 (7-18) mg/dl Creatinine 0.82 (0.6-1.4) mg/dl Est Cr Clr Drug Dosing 71.3 ml/min Est GFR ( Amer) 112.2 Est GFR (Non-Af Amer) 96.8 BUN/Creatinine Ratio 9.0 L (10-20) Glucose 85 (70-99) mg/dl Calcium 9.5 (8.5-10.1) mg/dl Total Bilirubin 0.8 (0.2-1) mg/dl AST 24 (15-37) U/L ALT 23 (12-78) U/L Alkaline Phosphatase 119 H (45-117) U/L Total Protein 7.4 (6.4-8.2) gm/dl Albumin 3.7 (3.4-5.0) gm/dl Globulin 3.7 (2.5-4.0) gm/dl Albumin/Globulin Ratio 1.0 (0.9-2) COVID-19 Eval Order SARS-CoV-2, RNA, NAAT (NEGATIVE) Administered Medications Discontinued Medications Albuterol (Albuterol Hfa 8 Gm Inhaler) 2 puffs INH NOW ONE Stop: 07/20/20 17:51 Last Admin: 07/20/20 17:54 Dose: 2 puffs Documented by: [id number] Ibuprofen (Ibuprofen 200 Mg Tab) 400 mg PO NOW STA Stop: 07/20/20 15:16 Last Admin: 07/20/20 15:48 Dose: 400 mg Documented by: [id number] Morphine Sulfate (Morphine Sulfate 4 Mg/Ml 1 Ml Carp\Vial) 4 mg IV NOW STA Stop: 07/20/20 17:32 Last Admin: 07/20/20 17:46 Dose: 4 mg Documented by: [id number] Oxycodone HCl (Oxycodone Hcl Ir 5 Mg Tab (Immediate Release)) 5 mg PO NOW STA Stop: 07/20/20 15:15 Last Admin: 07/20/20 15:48 Dose: 5 mg Documented by: [id number] Discharge Plan Visit Data Chief Complaint: Back Injury/Pain ED Provider: Jairo Anderson Discharge Problem: Closed compression fracture of lumbar vertebra, Alcohol abuse, Acute hyponatremia Forms Stand Alone Forms: [facility] Prescriptions Prescriptions: No Action Incruse Ellipta 62.5 mcg/actuation blister with device 1 puffs INH DAILY Qty: 30 RF: 2 Xarelto 10 mg tablet 10 mg PO DAILY Qty: 90 RF: 3 albuterol sulfate 2.5 mg /3 mL (0.083 %) solution for nebulization 2.5 mg inhalation QID PRN (Reason: shortness of breath or wheezing) Qty: 90 RF: 1 albuterol sulfate [Ventolin HFA] 90 mcg/actuation HFA aerosol inhaler 1 - 2 puff inhalation .Q4-6HRS PRN (Reason: Shortness Of Breath Or Wheezing) Qty: 18 RF: 1 (DME) nebulizers Misc See Rx Instructions .ROUTE .MEDSUPPLY Qty: 1 RF: 0 cetirizine 10 mg tablet 10 mg PO DAILY PRN (Reason: Allergy Symptoms) RF: 0 acetaminophen [Tylenol Extra Strength] 500 mg Tablet 1,000 mg PO Q6H PRN (Reason: Fever Or Pain) RF: 0 propranolol 10 mg tablet 10 mg PO TID RF: 0 multivitamin [Daily-Deanne] tablet 1 tab PO DAILY RF: 0 bupropion HCl [Wellbutrin SR] 150 mg tablet sustained-release 12 hr 150 mg PO BID RF: 0 Discharge Problem: Closed compression fracture of lumbar vertebra Qualifiers: Encounter type: initial encounter Lumbar vertebra fracture level: L2 Qualified Code(s): S32.020A - Wedge compression fracture of second lumbar vertebra, initial encounter for closed fracture
--- NOTE | 2020-07-20 16:08 | XRay Report ---
XR thoracic spine 3V routine CLINICAL HISTORY: lower back pain COMPARISON STUDY: Thoracic spine radiographs April 21, 2020. FINDINGS: Irregular right upper lobe airspace opacity is again noted. This is suboptimally assessed o n this exam but appears decreased since CT of September 01, 2019. No acute thoracic spine fracture is not ed. There is a moderate L2 compression fracture. This is better depicted on the CT of the lumbar spin e. IMPRESSION: 1. No acute thoracic spine fracture or subluxation. 2. Moderate L2 compression fracture which is better depicted on the CT of the lumbar spine. Please se e that report for further discussion. ACT 112: Negative or not required by law. Electronically signed by: Randolph Arredondo M.D. 07/20/2020 4:06 PM
--- NOTE | 2020-07-20 16:15 | CT Scan Report ---
LUMBAR SPINE CT WITHOUT CONTRAST CLINICAL HISTORY: lower back pain s/p fall COMPARISON STUDY: Lumbar spine radiograph April 21, 2020. TECHNIQUE: Axial images of the lumbar spine were obtained without IV contrast. Sagittal and coronal r econstructions were viewed. Automated exposure control was utilized for the study. A dose lowering t echnique was utilized adhering to the principles of ALARA. FINDINGS: Note is made of a moderate compression fracture of the superior endplate of L2. There is 50 % loss of vertebral body height and 3 mm of retropulsion. This fracture is new since radiographs of N ov2019 and likely acute. There is an old L4 compression fracture. No additional lumbar spin e fractures are present. 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 Facet joints are intact. Sacroiliac joints are intact. No suspicious osseous lesions are ident ified. IMPRESSION: 1. Moderate compression fracture of the superior endplate of L2 with 50% loss of vertebral body heigh t and minimal retropulsion. This fracture is likely acute. 2. No additional acute lumbar spine fractures. 3. Old moderate L4 compression fracture. ACT 112: Negative or not required by law. Electronically signed by: Randolph Arredondo M.D. 07/20/2020 4:13 PM
[2020-07-20 16:35] LABS: Basophils # (auto) 0.01 K/uL (0-0.2); Basophils % (auto) 0.1 %; Eosinophils # (auto) 0.03 K/uL (0-0.5); Eosinophils % (auto) 0.3 %; Hemoglobin 15.1 g/dL (14.0-18.0); Immature Granulocytes # (auto) 0.01 K/uL (0.00-0.02); Immature Granulocytes % (auto) 0.1 %; Lymphocytes # (auto) 0.77 K/uL (1.2-3.4); Lymphocytes % (auto) 7.8 %; Mean Corpuscular Hemoglobin 33.6 pg (25-34); Mean Corpuscular Hgb Conc 35.1 g/dL (32-36); Mean Corpuscular Volume 95.6 fL (80-100); Mean Platelet Volume 8.9 fL (7.4-10.4); Monocytes # (auto) 0.58 K/uL (0.11-0.59); Monocytes % (auto) 5.9 %; Neutrophils # (auto) 8.42 K/uL (1.4-6.5); Neutrophils % (auto) 85.8 %; Platelet Count 253 K/uL (130-400); RDW Coefficient of Variation 12.5 % (11.5-14.5); White Blood Count 9.82 K/uL (4.8-10.8)
[2020-07-20 16:53] LABS: Albumin Level 3.7 gm/dl (3.4-5.0); Calcium 9.5 mg/dl (8.5-10.1); Creatinine Clr Calc Pharmacy 71.3 ml/min; Est GFR (African American) 112.2; Est GFR (Non-African American) 96.8; Potassium 5.1 mmol/L (3.5-5.1)
[2020-07-20 16:56] LABS: Bilirubin,Total 0.8 mg/dl (0.2-1); Globulin 3.7 gm/dl (2.5-4.0); Total Protein 7.4 gm/dl (6.4-8.2)
[2020-07-20] MEDS ORDERED: MoRPHine SULFATE 4 MG/ML 1 ML CARP\\VIAL IV STA (17:31)
[2020-07-20] MEDS ORDERED: FOLIC ACID 1 MG in SYRINGE 9.8 ML IV STA (17:31)
[2020-07-20] MEDS ORDERED: THIAMINE HCL 100 MG in SYRINGE 9 ML IV STA (17:31)
[2020-07-20] MEDS ORDERED: ALBUTEROL HFA 8 GM INHALER INH ONE (17:50)
[2020-07-20] MEDS ORDERED: SODIUM CHLORIDE 0.9% 1000ML 1,000 ML IV ONE (18:00)
--- NOTE | 2020-07-20 18:36 | History & Physical Report ---
Date of Service July 20, 2020 Assessment & Plan (1) Closed compression fracture of lumbar vertebra: Impression from CT scan: Note is made of a moderate compression fracture of the superior endplate of L2. There is 50% loss of vertebral body height and 3 mm of retropulsion. This fracture is new since radiographs of April 21, 2020 and likely acute. There is an old L4 compression fracture. - Ortho consulted for possible bracing if needed - Pain control with tylenol, Oxycodone 5, and Morphine. - No spasms at this time, if needed can add on muscle relaxer - Neurologically intact, baseline weakness to lower extremities, sensation intact. - Patient able to recall the whole event, unlikely cardiac in nature. (2) ETOH abuse: Chronic 6-8 beers per day reported - CIWA protocol with gabapentin, which should help with back pain as well. - 600 mg load - Ativan 1-3 mg PRN over top if needed - Thiamine 1mg daily - Folate 1mg daily (3) Hyponatremia: Chronic noted from last admission in July of 2019 as well - Likely related to beer drinking potomania - 1 Liter of saline given in ER, will not send urine NA labs at this time - Free water restrict to 1L per day - Monitor, should come up with water restriction (4) COPD (chronic obstructive pulmonary disease): Emphysematous -Continue albuterol inhaler - Continue Incruse - Continue certrizine - Goal SPo2 88-92% - Continues to smoke- Offer smoking cessation education (5) Atrial fibrillation: Patient is in NSR on the monitor and diagnosis of afib, history of AFIB questionable but patient remains on Rivaroxaban - With patient history of frequent falls this may be beneficial to track down sooner. - Continue with Rivaroxaban for now (6) Cardiomyopathy: December 30, 2018 and this shows normal left ventricular size with normal wall thickness but an ejection fraction of 30 to 35% with regional wall motion abnormalities - Cause of CM unkown, possibly ischemic from past chart reviews - Patient was to changed from Inderal to Metoprolol in February 2020, but patient states that medications never made it to the pharmacy-- consider changing while in house. - Will get ECHO while in house as was soon to be done as outpatient - Patient appears to be euvolemic on this exam (7) Tobacco dependence: Continues to smoke 1-1.5 packs per day - add nicotine patch History of Present Illness Primary Care Provider: Lora Narvaez MD 60 YOM with past medical history, hyponatremia, osteopenia, angina, a-fib, intertrochanteric fracture, ETOH abuse, CHF, cardiomyopathy, tobacco use, COPD, pneumonia with pleural effusion. Patient came to the emergency room today after falling at home last night. The patient fell at around 830 last night, where he got up in the dark, tripped and fell backward on to his backside. Patient states that he fell straight down on backside. This was also after drinking 6-8 beers. He came secondary to the pain and difficulty getting around the house. The patient recently had his hip repaired last July and mostly gets around the house in a wheel chair. Patient reports that he has never had history of withdrawals from alcohol during admissions. The patient is on chronic anticoagulation for history of questionable atrial fibrillation and his NSR on the monitor at this time. Pain is controlled. Will admit for pain control, PT/OT, and ortho consult for possible bracing if needed with retropulsion of fracture. Allergies Allergy/AdvReac Type Severity Reaction Status Date / Time erythromycin base Allergy Unknown Unknown Verified 07/20/20 16:23 Penicillins Allergy Unknown Unknown Verified 07/20/20 16:23 NITRATES IN PROCESSED MEATS Allergy Severe Difficulty Uncoded 07/20/20 16:23 Breathing Home Medications Medication Instructions Recorded Confirmed Type cetirizine 10 mg PO DAILY PRN 12/29/18 07/20/20 History umeclidinium 62.5 mcg/actuation 1 puffs INH DAILY #30 ea 09/20/19 07/20/20 Rx blister powder for inhalation nebulizers #1 ea 12/25/19 03/21/20 Rx rivaroxaban 10 mg tablet 10 mg PO DAILY #90 tab 03/05/20 07/20/20 Rx albuterol sulfate 2.5 mg INHALATION QID PRN #90 ml 06/05/20 07/20/20 Rx albuterol sulfate 90 mcg/actuation 1 - 2 puff INHALATION .Q4-6HRS PRN 06/06/20 07/20/20 Rx aerosol inhaler #18 gm acetaminophen [Tylenol Extra 1,000 mg PO Q6H PRN 07/20/20 07/20/20 History Strength] bupropion HCl [Wellbutrin SR] 150 mg PO BID 07/20/20 07/20/20 History multivitamin [Daily-Deanne] 1 tab PO DAILY 07/20/20 07/20/20 History propranolol 10 mg PO TID 07/20/20 07/20/20 History oxycodone-acetaminophen [Percocet] 1 tab PO TID PRN #10 tab 07/23/20 Rx Past Med/Surg History Medical History (Updated 07/20/20 @ 18:40 by JAYY Dangelo) Abdominal mass removed at [facility] - he cannot recall details; he was in 3rd grade Avascular necrosis of hip right COPD (chronic obstructive pulmonary disease) Elevated troponin GI bleed Surgical History (Updated 12/24/19 @ 14:36 by APURVA Hair) History of hip surgery Hx of appendectomy Family History Father Hairy cell leukemia Mother Multiple myeloma Social History Smoking Status: Current every day smoker Tobacco Type: Cigarettes Age Started Using Tobacco: 16; packs per day: 1; Cigarettes Per Day: 30; Second Hand Exposure: Yes; Hx Alcohol Use: Yes Alcohol type: beer Alcohol Intake Frequency Comment: 4-6 beers/day Hx Substance Use: No Preferred Language: Cambodian Communication Ability: Effective Community Placement Worker Required: No Beliefs That Will Affect Care: None marital status: Single marital status details: no children Current Living Situation: Spouse Current Living Situation Comment: lives in [place] by himself current occupational status: disabled other: 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 Feels Safe at Home: Yes Assistive Devices: None Review of Systems Review of Systems: REVIEW OF SYSTEMS: Constitutional: No fever, sweats or chills Eyes: No diplopia, no worsening or blurred vision ENT: normal hearing, no trouble swallowing Respiratory: No cough, sputum, dyspnea at rest or on exertion Cardiovascular: No chest pain, tightness or palpitations Abdomen: No pain, nausea, vomiting, diarrhea or constipation Musculoskeletal: (+) pain to back, no spasm reported, No joint pain, calf pain, swelling Neurologic: No weakness, numbness/tingling, or balance problems Psychiatric: No anxiety or depression Skin: No rash or itch Physical Exam Physical Exam: PHYSICAL EXAM: General: awake, alert, no apparent distress Head: Normocephalic, atraumatic ENT: PERRL, EOMI, no pharyngeal exudate, mucous membranes moist Neuro: AAO x 3, speech clear and appropriate, strength intact bilaterally 4/5 all extremities, sensation intact and equal all extremities and dermatomes, no pronator drift Chest: equal rise and fall of the chest, no accessory muscle use, no heaves or thrills, Clear to auscultation, on room air, Cardiac: Regular rate and rhythm, telemetry reviewed, skin warm dry, cap refill <3 seconds, peripheral pulses +2 no JVD, no murmur, no edema GI: NABS x 4 quadrants, soft, nontender to palpation, no rebound, guarding or tenderness : Spontaneously voiding, no pain, no CVA tenderness, Extremities: Normal inspection, no peripheral edema or erythema, calfs nontender to palpation Psych: Normal mood and affect Skin: no rash or erythema Results & Data Results & Data ([facility]) Vital Signs (Past 12 Hours) Vital Signs Temp Pulse Pulse Resp BP BP Pulse Ox 07/20/20 17:00 68 22 145/92 H 95 07/20/20 16:30 70 20 96 07/20/20 16:01 73 15 136/91 97 07/20/20 16:00 71 17 91 07/20/20 15:52 71 22 97 07/20/20 15:51 77 15 148/95 H 97 07/20/20 15:50 96 07/20/20 15:20 71 19 145/87 H 07/20/20 15:16 36.9 C 82 70 20 145/87 H 145/87 H 94 07/20/20 15:06 72 23 Laboratory Results Abnormal lab results 07/20/20 07/20/20 Range/Units 16:26 16:26 RBC 4.50 L (4.7-6.1) M/uL Neut # (Auto) 8.42 H (1.4-6.5) K/uL Lymph # (Auto) 0.77 L (1.2-3.4) K/uL Sodium 124 L (136-145) mmol/L Chloride 91 L (98-107) mmol/L BUN/Creatinine Ratio 9.0 L (10-20) Alkaline Phosphatase 119 H (45-117) U/L Diagnostic Findings LUMBAR SPINE CT WITHOUT CONTRAST CLINICAL HISTORY: lower back pain s/p fall COMPARISON STUDY: Lumbar spine radiograph April 21, 2020. TECHNIQUE: Axial images of the lumbar spine were obtained without IV contrast. Sagittal and coronal reconstructions were viewed. Automated exposure control was utilized for the study. A dose lowering technique was utilized adhering to the principles of ALARA. FINDINGS: Note is made of a moderate compression fracture of the superior endplate of L2. There is 50% loss of vertebral body height and 3 mm of retropulsion. This fracture is new since radiographs of April 21, 2020 and l ikely acute. There is an old L4 compression fracture. No additional lumbar spine fractures are present. The central canal and neural foramen are suboptimally assessed given CT technique. Facet joints are intact. Sacroiliac joints are intact. No suspicious osseous lesions are identified. IMPRESSION: 1. Moderate compression fracture of the superior endplate of L2 with 50% loss of vertebral body height and minimal retropulsion. This fracture is likely acute. 2. No additional acute lumbar spine fractures. 3. Old moderate L4 compression fracture. XR thoracic spine 3V routine CLINICAL HISTORY: lower back pain COMPARISON STUDY: Thoracic spine radiographs April 21, 2020. FINDINGS: Irregular right upper lobe airspace opacity is again noted. This is suboptimally assessed on this exam but appears decreased since CT of September 01, 2019. No acute thoracic spine fracture is noted. There is a moderate L2 compression fracture. This is better depicted on the CT of the lumbar spine. IMPRESSION: 1. No acute thoracic spine fracture or subluxation. 2. Moderate L2 compression fracture which is better depicted on the CT of the lumbar spine. Please see that report for further discussion. Medications Administered Discontinued Medications Albuterol (Albuterol Hfa 8 Gm Inhaler) 2 puffs INH NOW ONE Stop: 07/20/20 17:51 Last Admin: 07/20/20 17:54 Dose: 2 puffs Documented by: [id number] Ibuprofen (Ibuprofen 200 Mg Tab) 400 mg PO NOW STA Stop: 07/20/20 15:16 Last Admin: 07/20/20 15:48 Dose: 400 mg Documented by: [id number] Morphine Sulfate (Morphine Sulfate 4 Mg/Ml 1 Ml Carp\Vial) 4 mg IV NOW STA Stop: 07/20/20 17:32 Last Admin: 07/20/20 17:46 Dose: 4 mg Documented by: [id number] Oxycodone HCl (Oxycodone Hcl Ir 5 Mg Tab (Immediate Release)) 5 mg PO NOW STA Stop: 07/20/20 15:15 Last Admin: 07/20/20 15:48 Dose: 5 mg Documented by: [id number] Home Medications cetirizine 10 mg PO DAILY PRN 12/29/18 [History Confirmed 07/20/20] umeclidinium 62.5 mcg/actuation blister powder for inhalation 1 puffs INH DAILY #30 ea 09/20/19 [Rx Confirmed 07/20/20] nebulizers #1 ea 12/25/19 [Rx Confirmed 03/21/20] rivaroxaban 10 mg tablet 10 mg PO DAILY #90 tab 03/05/20 [Rx Confirmed 07/20/20] albuterol sulfate 2.5 mg INHALATION QID PRN #90 ml 06/05/20 [Rx Confirmed 07/20/20] albuterol sulfate 90 mcg/actuation aerosol inhaler 1 - 2 puff INHALATION .Q4- 6HRS PRN #18 gm 06/06/20 [Rx Confirmed 07/20/20] acetaminophen [Tylenol Extra Strength] 1,000 mg PO Q6H PRN 07/20/20 [History Confirmed 07/20/20] bupropion HCl [Wellbutrin SR] 150 mg PO BID 07/20/20 [History Confirmed 07/20/20] multivitamin [Daily-Deanne] 1 tab PO DAILY 07/20/20 [History Confirmed 07/20/20] propranolol 10 mg PO TID 07/20/20 [History Confirmed 07/20/20] Active Medications Sodium Chloride (Nss 1000ml) 1,000 mls @ 999 mls/hr IV .Q1H1M ONE Stop: 07/20/20 19:00 Code Status & VTE Plan Code Status CODE: FULL VTE: Rivoroxaban, SCD VTE Prophylaxis Plan VTE Prophylaxis will be ordered: Yes Supervising Physician Co-Signing Physician Notes Patient seen and examined at bedside. During my face to face encounter with patient, I obtained a history and physical examination. I discussed case with Freddy Browning and patient. I agree with above note and plan. All of patient's questions were answered. Patient admitted for closed compression fracture of lumbar spine. Will be admitted and eal by ortho; may require brace PG Care Time/CCT Total # of Minutes Spent Total Time Spent with Patient: Total time spent is greater than 50% in coordination of care (as documented) at patient's floor/unit and/or counseling patient: Coding Level of Care Code 78645 Initial Inpt Care Lvl 3 Diagnoses Closed compression fracture of lumbar vertebra S32.020A Encounter type: initial encounter Lumbar vertebra fracture level: L2 ETOH abuse F10.10 Hyponatremia E87.1 COPD (chronic obstructive pulmonary disease) J43.9 COPD type: emphysema Emphysema type: unspecified Atrial fibrillation I48.91 Atrial fibrillation type: unspecified Cardiomyopathy I42.9 Cardiomyopathy type: unspecified Tobacco dependence F17.200 (1) Atrial fibrillation Atrial fibrillation type: unspecified Qualified Code(s): I48.91 - Unspecified atrial fibrillation (2) Closed compression fracture of lumbar vertebra Encounter type: initial encounter Lumbar vertebra fracture level: L2 Qualified Code(s): S32.020A - Wedge compression fracture of second lumbar vertebra, initial encounter for closed fracture (3) COPD (chronic obstructive pulmonary disease) COPD type: emphysema Emphysema type: unspecified Qualified Code(s): J43.9 - Emphysema, unspecified (4) Cardiomyopathy Cardiomyopathy type: unspecified Qualified Code(s): I42.9 - Cardiomyopathy, unspecified
[2020-07-20] MEDS ORDERED: GABAPENTIN 800MG ALCOHOL WITHDRAWAL LOAD PO STA (19:55)
[2020-07-20] MEDS ORDERED: ALBUTEROL HFA 8 GM INHALER INH PRN (19:55)
[2020-07-20] MEDS ORDERED: LORazepam 1 MG TAB PO PRN (19:55)
[2020-07-20] MEDS ORDERED: CETIRIZINE HCL 10 MG TABLET PO PRN (19:55)
[2020-07-20] MEDS ORDERED: ACETAMINOPHEN 500 MG TAB PO PRN (19:59)
[2020-07-20] MEDS ORDERED: GABAPENTIN 400 MG CAP PO ONE (20:15)
[2020-07-20] MEDS: buPROPion SR 150 MG TABCR PO SCH (21:03)
[2020-07-20] MEDS: NICOTINE 21 MG/24 HR TDSY TD SCH (21:04)
[2020-07-20] MEDS: PROPRANOLOL HCL 10 MG TAB PO SCH (21:04)
[2020-07-20] MEDS: oxyCODONE HCL IR 5 MG TAB (IMMEDIATE RELEASE) PO PRN (21:07)
[2020-07-20] MEDS: MoRPHine SULFATE 2 MG/ML CARP IV PRN (23:07)
[2020-07-20] MEDS: GABAPENTIN 400 MG CAP PO SCH (23:08)
[2020-07-21] MEDS: MoRPHine SULFATE 2 MG/ML CARP IV PRN ×4 (02:20→21:25)
[2020-07-21] MEDS: GABAPENTIN 400 MG CAP PO SCH ×3 (05:11→21:20)
[2020-07-21] MEDS: oxyCODONE HCL IR 5 MG TAB (IMMEDIATE RELEASE) PO PRN ×3 (05:11→18:30)
[2020-07-21] MEDS: ALBUTEROL 0.083% NEBU SOLN 3 ML VIAL INH PRN ×2 (05:50→20:16)
[2020-07-21] MEDS: buPROPion SR 150 MG TABCR PO SCH ×2 (08:42→21:20)
[2020-07-21] MEDS: UMECLIDINIUM BROMIDE 62.5MCG/BLISTER 7 PUFFS/INHALER INH SCH (08:43)
[2020-07-21] MEDS: THIAMINE HCL 100 MG in SYRINGE 9 ML IV SCH (08:43)
[2020-07-21] MEDS: PROPRANOLOL HCL 10 MG TAB PO SCH ×3 (08:43→21:21)
[2020-07-21] MEDS: MULTIVITAMIN TAB PO SCH (08:43)
[2020-07-21] MEDS: FOLIC ACID 1 MG in SYRINGE 9.8 ML IV SCH (08:44)
[2020-07-21 09:19] LABS: BUN Creatinine Ratio 11.3 (10-20); Calcium 9.4 mg/dl (8.5-10.1); Creatinine Clr Calc Pharmacy 84.8 ml/min; Est GFR (African American) 120.4; Est GFR (Non-African American) 103.9
[2020-07-21 09:35] LABS: Hematocrit (blood only) 46.3 % (42-52); Hemoglobin 15.8 g/dL (14.0-18.0); Mean Corpuscular Hemoglobin 33.1 pg (25-34); Mean Corpuscular Hgb Conc 34.1 g/dL (32-36); Mean Corpuscular Volume 96.9 fL (80-100); Mean Platelet Volume 9.9 fL (7.4-10.4); Platelet Count 207 K/uL (130-400); RDW Coefficient of Variation 12.8 % (11.5-14.5); Red Blood Count 4.78 M/uL (4.7-6.1); White Blood Count 9.19 K/uL (4.8-10.8)
[2020-07-21] MEDS: NICOTINE 21 MG/24 HR TDSY TD SCH (09:48)
[2020-07-21 09:56] LABS: Basophils # (auto) 0.02 K/uL (0-0.2); Basophils % (auto) 0.2 %; Eosinophils # (auto) 0.06 K/uL (0-0.5); Eosinophils % (auto) 0.7 %; Immature Granulocytes # (auto) 0.04 K/uL (0.00-0.02); Immature Granulocytes % (auto) 0.4 %; Lymphocytes # (auto) 0.55 K/uL (1.2-3.4); Monocytes # (auto) 0.35 K/uL (0.11-0.59); Monocytes % (auto) 3.8 %; Neutrophils # (auto) 8.17 K/uL (1.4-6.5); Neutrophils % (auto) 88.9 %
[2020-07-21 09:57] LABS: Potassium 4.4 mmol/L (3.5-5.1)
--- NOTE | 2020-07-21 13:08 | Orthopedic Consultation ---
Date of Consultation July 21, 2020 Assessment & Plan (1) Closed compression fracture of lumbar vertebra: Patient has an acute L2 compression fracture. In light of his health history I would like to approach this nonoperatively. He has a TLSO brace that he will wear when out of bed and ambulating. If he tolerates physical and Occupational Therapy next few days I suspect he will improve without any further intervention. Present on Admission?: Yes History of Present Illness Reason for Consultation: Back pain Attending Physician: Rajeev Quinn History of Present Illness This is a 60-year-old male who presents after a fall at home yesterday. He does have a significant medical history. He was diagnosed with an L2 compression fracture. Today he states his pain is relatively well controlled. He was planning to initiate and attempted physical therapy. He denies any numbness or tingling to lower extremities. No other complaints at this time. Allergies Allergy/AdvReac Type Severity Reaction Status Date / Time erythromycin base Allergy Unknown Unknown Verified 07/20/20 16:23 Penicillins Allergy Unknown Unknown Verified 07/20/20 16:23 NITRATES IN PROCESSED MEATS Allergy Severe Difficulty Uncoded 07/20/20 16:23 Breathing Home Medications Medication Instructions Recorded Confirmed Type cetirizine 10 mg PO DAILY PRN 12/29/18 07/20/20 History umeclidinium 62.5 mcg/actuation 1 puffs INH DAILY #30 ea 09/20/19 07/20/20 Rx blister powder for inhalation nebulizers #1 ea 12/25/19 03/21/20 Rx rivaroxaban 10 mg tablet 10 mg PO DAILY #90 tab 03/05/20 07/20/20 Rx albuterol sulfate 2.5 mg INHALATION QID PRN #90 ml 06/05/20 07/20/20 Rx albuterol sulfate 90 mcg/actuation 1 - 2 puff INHALATION .Q4-6HRS PRN 06/06/20 07/20/20 Rx aerosol inhaler #18 gm acetaminophen [Tylenol Extra 1,000 mg PO Q6H PRN 07/20/20 07/20/20 History Strength] bupropion HCl [Wellbutrin SR] 150 mg PO BID 07/20/20 07/20/20 History multivitamin [Daily-Deanne] 1 tab PO DAILY 07/20/20 07/20/20 History propranolol 10 mg PO TID 07/20/20 07/20/20 History Patient History Medical History (Updated 07/20/20 @ 18:40 by JAYY Dangelo) Abdominal mass removed at [facility] - he cannot recall details; he was in 3rd grade Avascular necrosis of hip right COPD (chronic obstructive pulmonary disease) Elevated troponin GI bleed Surgical History (Updated 12/24/19 @ 14:36 by APURVA Hair) History of hip surgery Hx of appendectomy Family History Father Hairy cell leukemia Mother Multiple myeloma Social History Smoking Status: Current every day smoker Tobacco Type: Cigarettes Age Started Using Tobacco: 16; packs per day: 1; Cigarettes Per Day: 30; Second Hand Exposure: Yes; Hx Alcohol Use: Yes Alcohol type: beer Alcohol Intake Frequency Comment: 4-6 beers/day Hx Substance Use: No Preferred Language: Urdu Communication Ability: Effective Art Dealer Required: No Beliefs That Will Affect Care: None marital status: Single marital status details: no children Current Living Situation: Spouse Current Living Situation Comment: lives in [place] by himself current occupational status: disabled other: 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 He is however alert and oriented. He exhibits reasonable strength testing lower extremities. He appears comfortable. Results & Data ([facility]) Vital Signs (Past 12 Hours) Vital Signs Temp Pulse Pulse Resp BP Pulse Ox 07/21/20 11:29 36.6 C 91 H 19 123/86 94 07/21/20 07:21 36.8 C 84 17 129/89 93 07/21/20 05:52 84 20 93 07/21/20 05:43 159/108 H 07/21/20 02:24 36.9 C 81 17 138/94 95 (1) Closed compression fracture of lumbar vertebra Encounter type: initial encounter Lumbar vertebra fracture level: L2 Qualified Code(s): S32.020A - Wedge compression fracture of second lumbar vertebra, initial encounter for closed fracture
--- NOTE | 2020-07-21 15:23 | XCELERA ---
[id number]
[2020-07-21] MEDS: guaiFENesin 600 MG TABCR PO SCH (21:20)
--- NOTE | 2020-07-21 22:09 | Hospitalist Progress Note ---
Date of Service July 21, 2020 Assessment & Plan (1) Closed compression fracture of lumbar vertebra: Impression from CT scan: Note is made of a moderate compression fracture of the superior endplate of L2. There is 50% loss of vertebral body height and 3 mm of retropulsion. This fracture is new since radiographs of April 21, 2020 and likely acute. There is an old L4 compression fracture. - Ortho consulted: BRACING ORDERED. - Pain control with tylenol, Oxycodone 5, and Morphine. - No spasms at this time, if needed can add on muscle relaxer - Neurologically intact, baseline weakness to lower extremities, sensation intact. - Patient able to recall the whole event, unlikely cardiac in nature. - (2) ETOH abuse: Chronic 6-8 beers per day reported - CIWA protocol with gabapentin, which should help with back pain as well. - GABAPENTIN taper ordered - Ativan 1-3 mg PRN over top if needed - Thiamine 1mg daily - Folate 1mg daily (3) Hyponatremia: Chronic noted from last admission in July of 2019 as well - Likely related to beer drinking potomania - 1 Liter of saline given in ER, will not send urine NA labs at this time - Free water restrict to 1L per day - Monitor, should come up with water restriction -sodium is showing improvement now at 127. (4) COPD (chronic obstructive pulmonary disease): Emphysematous -Continue albuterol inhaler - Continue Incruse - Continue certrizine - Goal SPo2 88-92% - Continues to smoke- Offer smoking cessation education (5) Atrial fibrillation: Patient is in NSR on the monitor and diagnosis of afib, history of AFIB questionable but patient remains on Rivaroxaban - With patient history of frequent falls this may be beneficial to track down sooner. - Continue with Rivaroxaban for now (6) Cardiomyopathy: December 30, 2018 and this shows normal left ventricular size with normal wall thickness but an ejection fraction of 30 to 35% with regional wall motion abnormalities - Cause of CM unkown, possibly ischemic from past chart reviews - Patient was to changed from Inderal to Metoprolol in February 2020, but patient states that medications never made it to the pharmacy-- consider changing while in house. - Will get ECHO while in house as was soon to be done as outpatient - Patient appears to be euvolemic on this exam (7) Tobacco dependence: Continues to smoke 1-1.5 packs per day - add nicotine patch Admission and Anticipated Discharge Date Admission Date: July 20, 2020 Subjective 60 YO male reports still having pain. Review of Systems Review of Systems: REVIEW OF SYSTEMS: Constitutional: No fever, sweats or chills Eyes: No diplopia, no worsening or blurred vision ENT: normal hearing, no trouble swallowing Respiratory: No cough, sputum, dyspnea at rest or on exertion Cardiovascular: No chest pain, tightness or palpitations Abdomen: No pain, nausea, vomiting, diarrhea or constipation Musculoskeletal: (+) pain to back, no spasm reported, No joint pain, calf pain, swelling Neurologic: No weakness, numbness/tingling, or balance problems Psychiatric: No anxiety or depression Skin: No rash or itch Physical Exam Physical Exam: General: awake, alert, no apparent distress Head: Normocephalic, atraumatic ENT: PERRL, EOMI, no pharyngeal exudate, mucous membranes moist Neuro: AAO x 3, speech clear and appropriate, Chest: equal rise and fall of the chest, no accessory muscle use, no heaves or thrills, Clear to auscultation, on room air, Cardiac: Regular rate and rhythm, telemetry reviewed, skin warm dry, cap refill <3 seconds, peripheral pulses +2 no JVD, no murmur, no edema GI: NABS x 4 quadrants, soft, nontender to palpation, no rebound, guarding or tenderness : Spontaneously voiding, no pain, no CVA tenderness, Extremities: Normal inspection, no peripheral edema or erythema, calfs nontender to palpation Psych: Normal mood and affect Skin: no rash or erythema Results & Data Results & Data ([facility]) Vital Signs (Past 12 Hours) Vital Signs Temp Pulse Pulse Resp BP Pulse Ox 07/21/20 20:18 90 18 90 07/21/20 19:40 36.7 C 92 H 18 139/94 93 07/21/20 14:28 36.6 C 87 19 134/89 95 07/21/20 13:41 90 18 135/92 95 07/21/20 11:29 36.6 C 91 H 19 123/86 94 PG Care Time/CCT Total # of Minutes Spent Total Time Spent with Patient: Total time spent is greater than 50% in coordination of care (as documented) at patient's floor/unit and/or counseling patient: Coding Level of Care Code 72875 Subseq Hosp Care Lvl 3 Diagnoses Closed compression fracture of lumbar vertebra S32.020A Encounter type: initial encounter Lumbar vertebra fracture level: L2 ETOH abuse F10.10 Hyponatremia E87.1 COPD (chronic obstructive pulmonary disease) J43.9 COPD type: emphysema Emphysema type: unspecified Atrial fibrillation I48.91 Atrial fibrillation type: unspecified Cardiomyopathy I42.9 Cardiomyopathy type: unspecified Tobacco dependence F17.200 Time Spent (min) 35 (1) Atrial fibrillation Atrial fibrillation type: unspecified Qualified Code(s): I48.91 - Unspecified atrial fibrillation (2) Closed compression fracture of lumbar vertebra Encounter type: initial encounter Lumbar vertebra fracture level: L2 Qualified Code(s): S32.020A - Wedge compression fracture of second lumbar vertebra, initial encounter for closed fracture (3) COPD (chronic obstructive pulmonary disease) COPD type: emphysema Emphysema type: unspecified Qualified Code(s): J43.9 - Emphysema, unspecified (4) Cardiomyopathy Cardiomyopathy type: unspecified Qualified Code(s): I42.9 - Cardiomyopathy, unspecified
[2020-07-21] MEDS: ACETAMINOPHEN 325 MG TAB PO PRN (22:50)
[2020-07-22] MEDS: oxyCODONE HCL IR 5 MG TAB (IMMEDIATE RELEASE) PO PRN ×3 (04:13→22:33)
[2020-07-22] MEDS: ACETAMINOPHEN 325 MG TAB PO PRN ×3 (04:15→20:14)
[2020-07-22] MEDS: ALBUTEROL 0.083% NEBU SOLN 3 ML VIAL INH PRN ×3 (04:25→18:25)
[2020-07-22] MEDS: GABAPENTIN 400 MG CAP PO SCH ×2 (05:52→17:38)
[2020-07-22 06:32] LABS: Basophils # (auto) 0.02 K/uL (0-0.2); Basophils % (auto) 0.2 %; Eosinophils # (auto) 0.14 K/uL (0-0.5); Eosinophils % (auto) 1.5 %; Hematocrit (blood only) 39.4 % (42-52); Hemoglobin 13.9 g/dL (14.0-18.0); Immature Granulocytes # (auto) 0.02 K/uL (0.00-0.02); Immature Granulocytes % (auto) 0.2 %; Lymphocytes % (auto) 8.6 %; Mean Corpuscular Hemoglobin 34.1 pg (25-34); Mean Corpuscular Hgb Conc 35.3 g/dL (32-36); Mean Corpuscular Volume 96.6 fL (80-100); Mean Platelet Volume 9.1 fL (7.4-10.4); Monocytes # (auto) 1.02 K/uL (0.11-0.59); Monocytes % (auto) 10.9 %; Neutrophils # (auto) 7.33 K/uL (1.4-6.5); Neutrophils % (auto) 78.6 %; Platelet Count 215 K/uL (130-400); RDW Coefficient of Variation 12.7 % (11.5-14.5); RDW Standard Deviation 44.7 fL (36.4-46.3); Red Blood Count 4.08 M/uL (4.7-6.1); White Blood Count 9.33 K/uL (4.8-10.8)
[2020-07-22 07:08] LABS: BUN Creatinine Ratio 15.5 (10-20); Calcium 8.3 mg/dl (8.5-10.1); Creatinine Clr Calc Pharmacy 91.4 ml/min; Est GFR (African American) 124.2; Est GFR (Non-African American) 107.2; Magnesium 2.1 mg/dl (1.8-2.4); Potassium 3.9 mmol/L (3.5-5.1)
[2020-07-22] MEDS: THIAMINE HCL 100 MG in SYRINGE 9 ML IV SCH (09:19)
[2020-07-22] MEDS: UMECLIDINIUM BROMIDE 62.5MCG/BLISTER 7 PUFFS/INHALER INH SCH (09:19)
[2020-07-22] MEDS: FOLIC ACID 1 MG in SYRINGE 9.8 ML IV SCH (09:20)
[2020-07-22] MEDS: MULTIVITAMIN TAB PO SCH (09:20)
[2020-07-22] MEDS: guaiFENesin 600 MG TABCR PO SCH ×2 (09:20→20:13)
[2020-07-22] MEDS: NICOTINE 21 MG/24 HR TDSY TD SCH (09:20)
[2020-07-22] MEDS: buPROPion SR 150 MG TABCR PO SCH ×2 (09:20→20:13)
[2020-07-22] MEDS: PROPRANOLOL HCL 10 MG TAB PO SCH ×3 (09:21→20:14)
[2020-07-22] MEDS: POLYETHYLENE (MIRALAX) 17 GM PACK PO PRN (20:13)
--- NOTE | 2020-07-22 22:19 | Hospitalist Progress Note ---
Date of Service July 22, 2020 Assessment & Plan (1) Closed compression fracture of lumbar vertebra: Impression from CT scan: Note is made of a moderate compression fracture of the superior endplate of L2. There is 50% loss of vertebral body height and 3 mm of retropulsion. This fracture is new since radiographs of April 21, 2020 and likely acute. There is an old L4 compression fracture. - Ortho consulted: BRACING ORDERED. - Pain control with tylenol, Oxycodone 5, and Morphine. - No spasms at this time, if needed can add on muscle relaxer - Neurologically intact, baseline weakness to lower extremities, sensation intact. - Patient able to recall the whole event, unlikely cardiac in nature - (2) ETOH abuse: Chronic 6-8 beers per day reported - CIWA protocol with gabapentin, which should help with back pain as well. - GABAPENTIN taper ordered - Ativan 1-3 mg PRN over top if needed - Thiamine 1mg daily - Folate 1mg daily (3) Hyponatremia: Chronic noted from last admission in July of 2019 as well - Likely related to beer drinking potomania - 1 Liter of saline given in ER, will not send urine NA labs at this time - Free water restrict to 1L per day - Monitor, should come up with water restriction -sodium is showing improvement now at 129. (4) COPD (chronic obstructive pulmonary disease): Emphysematous -Continue albuterol inhaler - Continue Incruse - Continue certrizine - Goal SPo2 88-92% - Continues to smoke- Offer smoking cessation education (5) Atrial fibrillation: Patient is in NSR on the monitor and diagnosis of afib, history of AFIB questionable but patient remains on Rivaroxaban - With patient history of frequent falls this may be beneficial to track down sooner. - Continue with Rivaroxaban for now (6) Cardiomyopathy: December 30, 2018 and this shows normal left ventricular size with normal wall thickness but an ejection fraction of 30 to 35% with regional wall motion abnormalities - Cause of CM unkown, possibly ischemic from past chart reviews - Patient was to changed from Inderal to Metoprolol in February 2020, but patient states that medications never made it to the pharmacy-- consider changing while in house. - Will get ECHO while in house as was soon to be done as outpatient - Patient appears to be euvolemic on this exam (7) Tobacco dependence: Continues to smoke 1-1.5 packs per day - add nicotine patch Ordered a 2 step: he did not qualify for oxygen. Admission and Anticipated Discharge Date Admission Date: July 20, 2020 Subjective Patient reports to continue to feel weak. He states he wants to go home tomorrow. He has been more active today, but does not feel steady on his feet today. Review of Systems Review of Systems: All systems reviewed & are unremarkable except as noted in HPI & below Physical Exam Physical Exam: General: awake, alert, no apparent distress Head: Normocephalic, atraumatic ENT: PERRL, EOMI, no pharyngeal exudate, mucous membranes moist Neuro: AAO x 3, speech clear and appropriate, Chest: equal rise and fall of the chest, no accessory muscle use, no heaves or thrills, Clear to auscultation, on room air, Cardiac: Regular rate and rhythm, telemetry reviewed, skin warm dry, cap refill <3 seconds, peripheral pulses +2 no JVD, no murmur, no edema GI: NABS x 4 quadrants, soft, nontender to palpation, no rebound, guarding or tenderness : Spontaneously voiding, no pain, no CVA tenderness, Extremities: Normal inspection except for Acrocyanosis of bis bilateral feet, no peripheral edema or erythema, calfs nontender to palpation Psych: Normal mood and affect Skin: no rash or erythema Results & Data Results & Data ([facility]) Vital Signs (Past 12 Hours) Vital Signs Temp Pulse Pulse Pulse Pulse Pulse Resp 07/22/20 20:07 36.8 C 89 18 07/22/20 18:25 89 18 07/22/20 16:25 106 H 101 H 88 07/22/20 15:29 36.9 C 85 16 07/22/20 14:11 80 18 07/22/20 11:27 84 16 Resp Resp Resp BP Pulse Ox Pulse Ox Pulse Ox 07/22/20 20:07 146/101 H 93 07/22/20 18:25 96 07/22/20 16:25 28 H 26 H 22 90 92 07/22/20 15:29 166/98 H 97 07/22/20 14:11 138/91 93 07/22/20 11:27 96 Pulse Ox 07/22/20 20:07 07/22/20 18:25 07/22/20 16:25 94 07/22/20 15:29 07/22/20 14:11 07/22/20 11:27 PG Care Time/CCT Total # of Minutes Spent Total Time Spent with Patient: Total time spent is greater than 50% in coordina tion of care (as documented) at patient's floor/unit and/or counseling patient: Coding Level of Care Code 14228 Subseq Hosp Care Lvl 2 Diagnoses Closed compression fracture of lumbar vertebra S32.020A Encounter type: initial encounter Lumbar vertebra fracture level: L2 ETOH abuse F10.10 Hyponatremia E87.1 COPD (chronic obstructive pulmonary disease) J43.9 COPD type: emphysema Emphysema type: unspecified Atrial fibrillation I48.91 Atrial fibrillation type: unspecified Cardiomyopathy I42.9 Cardiomyopathy type: unspecified Tobacco dependence F17.200 (1) Atrial fibrillation Atrial fibrillation type: unspecified Qualified Code(s): I48.91 - Unspecified atrial fibrillation (2) Closed compression fracture of lumbar vertebra Encounter type: initial encounter Lumbar vertebra fracture level: L2 Qualified Code(s): S32.020A - Wedge compression fracture of second lumbar vertebra, initial encounter for closed fracture (3) COPD (chronic obstructive pulmonary disease) COPD type: emphysema Emphysema type: unspecified Qualified Code(s): J43.9 - Emphysema, unspecified (4) Cardiomyopathy Cardiomyopathy type: unspecified Qualified Code(s): I42.9 - Cardiomyopathy, unspecified
[2020-07-23] MEDS: MoRPHine SULFATE 2 MG/ML CARP IV PRN (01:59)
[2020-07-23] MEDS: GABAPENTIN 400 MG CAP PO SCH (05:40)
[2020-07-23 07:38] LABS: Basophils # (auto) 0.02 K/uL (0-0.2); Basophils % (auto) 0.2 %; Eosinophils # (auto) 0.21 K/uL (0-0.5); Eosinophils % (auto) 2.5 %; Hematocrit (blood only) 41.3 % (42-52); Immature Granulocytes # (auto) 0.02 K/uL (0.00-0.02); Immature Granulocytes % (auto) 0.2 %; Lymphocytes # (auto) 0.87 K/uL (1.2-3.4); Lymphocytes % (auto) 10.4 %; Mean Corpuscular Hemoglobin 33.4 pg (25-34); Mean Corpuscular Hgb Conc 33.9 g/dL (32-36); Mean Corpuscular Volume 98.6 fL (80-100); Mean Platelet Volume 9.2 fL (7.4-10.4); Monocytes # (auto) 0.89 K/uL (0.11-0.59); Monocytes % (auto) 10.7 %; Neutrophils # (auto) 6.34 K/uL (1.4-6.5); Platelet Count 214 K/uL (130-400); RDW Coefficient of Variation 12.8 % (11.5-14.5); RDW Standard Deviation 46.2 fL (36.4-46.3); Red Blood Count 4.19 M/uL (4.7-6.1); White Blood Count 8.35 K/uL (4.8-10.8)
[2020-07-23 08:14] LABS: BUN Creatinine Ratio 11.3 (10-20); Calcium 8.9 mg/dl (8.5-10.1); Creatinine Clr Calc Pharmacy 80.1 ml/min; Est GFR (African American) 117.7; Est GFR (Non-African American) 101.5; Magnesium 2.1 mg/dl (1.8-2.4); Potassium 4.1 mmol/L (3.5-5.1)
[2020-07-23] MEDS: UMECLIDINIUM BROMIDE 62.5MCG/BLISTER 7 PUFFS/INHALER INH SCH (08:25)
[2020-07-23] MEDS: buPROPion SR 150 MG TABCR PO SCH (08:26)
[2020-07-23] MEDS: FOLIC ACID 1 MG in SYRINGE 9.8 ML IV SCH (08:26)
[2020-07-23] MEDS: POLYETHYLENE (MIRALAX) 17 GM PACK PO PRN (08:26)
[2020-07-23] MEDS: NICOTINE 21 MG/24 HR TDSY TD SCH (08:26)
[2020-07-23] MEDS: PROPRANOLOL HCL 10 MG TAB PO SCH ×2 (08:26→14:34)
[2020-07-23] MEDS: guaiFENesin 600 MG TABCR PO SCH (08:26)
[2020-07-23] MEDS: MULTIVITAMIN TAB PO SCH (08:26)
[2020-07-23] MEDS: THIAMINE HCL 100 MG in SYRINGE 9 ML IV SCH (08:27)
[2020-07-23] MEDS: ALBUTEROL 0.083% NEBU SOLN 3 ML VIAL INH PRN (13:38)
[2020-07-23] MEDS: oxyCODONE HCL IR 5 MG TAB (IMMEDIATE RELEASE) PO PRN (16:25)
--- NOTE | 2020-07-23 18:00 | Discharge Summary ---
Date of Service July 23, 2020 Admission HPI Per Admitting Provider 60 YOM with past medical history, hyponatremia, osteopenia, angina, a-fib, intertrochanteric fracture, ETOH abuse, CHF, cardiomyopathy, tobacco use, COPD, pneumonia with pleural effusion. Patient came to the emergency room today after falling at home last night. The patient fell at around 830 last night, where he got up in the dark, tripped and fell backward on to his backside. Patient states that he fell straight down on backside. This was also after drinking 6-8 beers. He came secondary to the pain and difficulty getting around the house. The patient recently had his hip repaired last July and mostly gets around the house in a wheel chair. Patient reports that he has never had history of withdrawals from alcohol during admissions. The patient is on chronic anticoagulation for history of questionable atrial fibrillation and his NSR on the monitor at this time. Pain is controlled. Will admit for pain control, PT/OT, and ortho consult for possible bracing if needed with retropulsion of fracture. Principal Diagnosis L2 compression fracture Discharge Exam Constitutional WD/WN, vitals as above Eyes EOM intact bilaterally; no conjunctival abnormality ENMT external ear and nose normal, oropharynx normal Neck trachea midline, no thyromegaly normal visual inspection Respiratory normal respiratory effort, lungs clear to auscultation no respiratory distress Cardiovascular RRR, no murmur, no edema Gastrointestinal (Abdomen) Inspection/Auscultation: abdomen normal to inspection; abdomen not distended Musculoskeletal no cyanosis or clubbing, extremities motor strength 5/5 Skin no rashes, warm and dry Neurologic moves all extremities and awake Psychiatric Orientation: alert, oriented to person and cooperative Discharge Data Allergies Allergy/AdvReac Type Severity Reaction Status Date / Time erythromycin base Allergy Unknown Unknown Verified 07/20/20 16:23 Penicillins Allergy Unknown Unknown Verified 07/20/20 16:23 NITRATES IN PROCESSED MEATS Allergy Severe Difficulty Uncoded 07/20/20 16:23 Breathing Consultations 07/20/20 16:53 ED Decision to Admit Stat 07/20/20 19:55 Consult Orthopedic Surgery Routine Ordered Studies 07/20/20 15:07 CT lumbar spine wo con Stat Hospital Course (1) Closed compression fracture of lumbar vertebra: Impression from CT scan: Note is made of a moderate compression fracture of the superior endplate of L2. There is 50% loss of vertebral body height and 3 mm of retropulsion. This fracture is new since radiographs of April 21, 2020 and likely acute. There is an old L4 compression fracture. - Ortho consulted: BRACING ORDERED. - Pain control with tylenol, Oxycodone 5, and Morphine. - No spasms at this time, if needed can add on muscle relaxer - Neurologically intact, baseline weakness to lower extremities, sensation intact. - Patient able to recall the whole event, unlikely cardiac in nature - Doing well on the day of discharge. No major concerns with pain control. No new neurologic issues. Stable for discharge. (2) ETOH abuse: Chronic 6-8 beers per day reported - WA protocol with gabapentin, which should help with back pain as well. - GABAPENTIN taper ordered - Ativan 1-3 mg PRN over top if needed - Thiamine 1mg daily - Folate 1mg daily - No signs/symptoms of withdrawal on discharge. (3) Hyponatremia: Chronic noted from last admission in July of 2019 as well - Likely related to beer drinking potomania - 1 Liter of saline given in ER, will not send urine NA labs at this time - Free water restrict to 1L per day - Monitor, should come up with water restriction -sodium is showing improvement now at 129. (4) COPD (chronic obstructive pulmonary disease): Emphysematous -Continue albuterol inhaler - Continue Incruse - Continue certrizine - Goal SPo2 88-92% - Continues to smoke- Offer smoking cessation education (5) Atrial fibrillation: Patient is in NSR on the monitor and diagnosis of afib, history of AFIB questionable but patient remains on Rivaroxaban - With patient history of frequent falls this may be beneficial to track down sooner. - Continue with Rivaroxaban for now (6) Cardiomyopathy: December 30, 2018 and this shows normal left ventricular size with normal wall thickness but an ejection fraction of 30 to 35% with regional wall motion abnormalities - Cause of CM unkown, possibly ischemic from past chart reviews - Patient was to changed from Inderal to Metoprolol in February 2020, but patient states that medications never made it to the pharmacy-- consider changing while in house. - Will get ECHO while in house as was soon to be done as outpatient - Patient appeared to be euvolemic on discharge. (7) Tobacco dependence: Continues to smoke 1-1.5 packs per day - add nicotine patch Total Time Total Time Spent Total Time Spent (In Minutes): 35 Discharge Plan Discharge Items Patient Disposition: Home - Home Health Services Reason For Visit: FALL WITH BACK INJURY Discharge Diagnosis: L2 compression fracture Activity: Resume your previous activity Non-emergency contact: Primary Care Provider and Surgeon Call non-emergency contact if: your symptoms worsen, your pain is not controlled and your pain is worsening Follow-up/Referrals: Lora Narvaez MD [Primary Care Provider] - 07/25/20 10:30 am (WITH EMELI LYNNE PA-C) Roderick Rojas DO [Surgeon] - (Please see Dr. Rojas in 2-4 weeks or sooner if pain is worsening.) Diet: Heart Healthy Addtl Attending Provider Instructions: Mr. Castillo, You were admitted to the hospital with a compression fracture. Luckily, your pain improved over a few days, and you do not need surgery or other interventions. Please wear the brace we fitted for you while you are out of bed. This will help reduce pressure on the vertebra that was injured. We are giving you a short course of pain medication, but if you are still needing consistent use when you start to run low, you will need to speak with your PCP or Dr. Rojas about further refills. This would be a sign that the back is not healing, and you would need to be seen by a physician. Please follow up with Dr. Rojas in 2-4 weeks or sooner if you are having more pain. Pending Studies at Discharge: No Stand-Alone Forms: [facility], Opioid Pain Management, Smoking Cessation Medications and DC Order Prescriptions: New oxycodone-acetaminophen [Percocet] 5-325 mg tablet 1 tab PO TID PRN (Reason: pain) Qty: 10 RF: 0 Continued Incruse Ellipta 62.5 mcg/actuation blister with device 1 puffs INH DAILY Qty: 30 RF: 2 Xarelto 10 mg tablet 10 mg PO DAILY Qty: 90 RF: 3 albuterol sulfate 2.5 mg /3 mL (0.083 %) solution for nebulization 2.5 mg inhalation QID PRN (Reason: shortness of breath or wheezing) Qty: 90 RF: 1 albuterol sulfate [Ventolin HFA] 90 mcg/actuation HFA aerosol inhaler 1 - 2 puff inhalation .Q4-6HRS PRN (Reason: Shortness Of Breath Or Wheezing) Qty: 18 RF: 1 (DME) nebulizers Misc See Rx Instructions .ROUTE .MEDSUPPLY Qty: 1 RF: 0 cetirizine 10 mg tablet 10 mg PO DAILY PRN (Reason: Allergy Symptoms) RF: 0 acetaminophen [Tylenol Extra Strength] 500 mg Tablet 1,000 mg PO Q6H PRN (Reason: Fever Or Pain) RF: 0 propranolol 10 mg tablet 10 mg PO TID RF: 0 multivitamin [Daily-Deanne] tablet 1 tab PO DAILY RF: 0 bupropion HCl [Wellbutrin SR] 150 mg tablet sustained-release 12 hr 150 mg PO BID RF: 0 Discharge Orders: Discharge Order (Routine); Ordered 07/23/20 Ordered By: Allen Marquez Admission Data Admit Date/Time: 07/20/20 18:05 Attending Provider: Allen Marquez Admit Provider: Rajeev Quinn Primary Care Provider: Lora Narvaez Other Providers: Roderick Rojas ; [facility],Referral Center ; [facility],Home Healthcare ; Allen Marquez Other Interventions: Discharge Summary Assessment (RN) Last Done: 07/23/20 11:12 Coding Level of Care Code D/C Day Management >30 mins Diagnoses Closed compression fracture of lumbar vertebra S32.020A Encounter type: initial encounter Lumbar vertebra fracture level: L2 ETOH abuse F10.10 Hyponatremia E87.1 COPD (chronic obstructive pulmonary disease) J43.9 COPD type: emphysema Emphysema type: unspecified Atrial fibrillation I48.91 Atrial fibrillation type: unspecified Cardiomyopathy I42.9 Cardiomyopathy type: unspecified Tobacco dependence F17.200
[2020-07-24] MEDS ORDERED: GABAPENTIN 400 MG CAP PO SCH (06:00)
== END 2020-07-23 17:14 | disposition home health service (06) ==
LOC: ED 14:54 → INTOOBSV 18:05 → SUATTDRO 18:05 → 3N 18:05

== ENCOUNTER 2024-12-14 16:12 | Inpatient (IN) ==
--- NOTE | 2024-12-14 16:12 | Emergency Department Note ---
Impression & Plan Acute exacerbation of chronic obstructive pulmonary disease, Sepsis, CHF (congestive heart failure), Cellulitis, Respiratory failure with hypoxia and hypercapnia, Hypokalemia, Hypomagnesemia ED Provider Note NAME: ELISE BARAHONA AGE: 64 SEX: M : 1960 ARRIVES VIA: Ambulance INFORMANT: Patient, EMS ED PROVIDER(S): Sharan Diez DO CHIEF COMPLAINT: SOB HPI: This is a 64-year-old male with the PMHx of COPD, venous stasis, CM/CHF, pAfib on chronic anticoagulation and tobacco use disorder presenting to [facility] for further evaluation of SOB. Patient is accompanied by EMS and who provide additional history. EMS reports that the patient called for shortness of breath. This has been a chronic issue for him but has worsened over the past few days. En route with EMS, the patient was given albuterol in the form of a DuoNeb as well as 125 mg of Solu-Medrol. Patient reports that he has had cough and congestion. Patient reports chronic lower extremity venous stasis and swelling. He states slightly worse than usual. Patient states that his right lower extremity is slightly more red than usual. His confirms this. Patient reports that he has been compliant with his anticoagulation and has not missed doses. He denies significant fever but has had chills at home. He endorses dyspnea at rest and some orthopnea. Denies chest pain or palpitations. They deny abdominal pain, nausea and vomiting. No urinary complaints. No recent changes in bowel movements. Patient denies recent changes in medications or OTC supplements. Patient notes that he has not been seen by a physician since March. Patient offers no other complaints, today. ADDITIONAL HISTORY OBTAINED: Per HPI Chronic Medical/Social Conditions Affecting Care: Per HPI PAST MEDICAL HISTORY: See Below PAST SURGICAL HISTORY: See Below FAMILY HISTORY: See Below SOCIAL HISTORY: See Below HOME MEDICATIONS: See Below ALLERGIES: See Below VITALS: See Below PHYSICAL EXAMINATION: GENERAL: Sitting up in bed, alert, ill appearing, he appears slightly disheveled, mild distress from his work of breathing EYE EXAM: normal conjunctiva. PERRL and EOM's grossly intact. OROPHARYNX: no exudate, no erythema, lips, buccal mucosa, and tongue normal and mucous membranes are dry NECK: supple, no nuchal rigidity, no adenopathy, non-tender LUNGS: Diffuse wheezing in all lung clark. Tachypnea to upper 30s. Normal chest wall mechanics HEART: no murmurs, tachycardic rate, regular rhythm ABDOMEN: abdomen soft, non-tender, normo-active bowel sounds, no masses, no rebound or guarding. BACK: Back is symmetrical on inspection and there is no deformity, no midline tenderness, no CVA tenderness. SKIN: no rashes and scattered bruising UPPER EXTREMITIES: upper extremities are grossly normal. LOWER EXTREMITIES: 4+ pitting edema of the bilateral lower extremities. Few with chronic venous stasis changes. Some ulceration. The right lower extremity is warm, red and swollen as compared to the left. NEURO EXAM: Normal sensorium, cranial nerves II-XII grossly intact, normal speech, no gross weakness of arms, no gross weakness of legs. GCS 15. MEDICAL DECISION MAKING: Differential diagnoses includes but not limited to ACS, unstable angina, dysrhythmia, PNA, hypervolemia/pulmonary edema, CHF exacerbation, COPD exacerbation, PE, pneumothorax, pericardial effusion, cardiac tamponade, anxiety/psychogenic, viral URI sepsis, bacteremia, cellulitis, electrolyte derangements In summary, this is a 64 year old male who presented with acute on chronic SOB. Differential as above. Nursing notes and pertinent past medical records reviewed. Vital signs reviewed and the patient is tachycardic and tachypneic with borderline hypoxia and fever. Blood pressure stable. History and presentation revealed extensive past medical history that I have reviewed with poor medical compliance. He does note that he has been compliant with his anticoagulation which makes pulmonary embolism less likely. History does include cardiomyopathy with CHF. Does have a history of COPD and continues with tobacco use disorder. Physical examination revealed patient appears in mild respiratory distress. Low-flow nasal cannula applied with some improvement. If he continues to have significant work of breathing, the patient may benefit from BiPAP initiation. While the lower extremities do appear chronic, I am concerned for possible DVT or cellulitis of the right lower extremity as compared to the left. As a result of my initial evaluation, suspect combination of COPD and CHF. Could be septic with the vital signs and presentation. Bedside ultrasound utilized on arrival. Patient has hyperdynamic function. IVC is variable with respirations. No B-lines. No large pericardial effusion. Suspect the patient's complaints today are more related to COPD exacerbation rather than heart failure. He does have swelling in the lower extremities more significant on the right with erythema and warmth. Poor vasculature. Patient states he is compliant with his anticoagulation but cannot rule out DVT. Would also consider pulmonary embolism. Given these findings and respiratory complaints as well as tachycardia, we will proceed with CT PE study following portable chest x-ray. Diagnostics interpreted by me include EKG and cardiac monitoring as listed below: -Cardiac Monitoring: An order was placed for continuous cardiac monitoring. The monitor shows a rate of 80-140s with regular rhythm. -ECG: EKG independently turbid by me reveals what appears to be sinus tachycardia at a rate of [address] segment changes to suggest STEMI. There are rate dependent depressions throughout the EKG. Intervals otherwise within normal limits. Patient completed laboratory studies and imaging. Results independently interpreted by me are leukocytosis. I confirmed the patient that he has not recently been on steroids. Patient is borderline febrile he is tachycardic and tachypneic. Patient meets SIRS criteria. Will collect blood cultures, lactate and begin broad-spectrum antibiotics. VBG shows minimal CO2 retention, no acidosis. Do not suspect significant ventilation issue at this time. Will hold on NIV. CXR independently interpreted by me reveals no evidence of focal consolidation to suggest pna. No large pneumothorax or pleural effusion. Minimal perihilar infiltrate, possible RUQ infiltrate. CXR is not overly impressive, will proceed with CT PE study for evaluation of PE and better investigation of the lung parenchyma. The patient was managed with BPAP as the patient became more tachypneic with increased work of breathing. Remains tachycardic, hypoxic. Mag is 1.6 and 2g ordered for IV replenishment. K slightly low at 3.3 and PO replenishment ordered. Lactate is minimally elevated at 2.1. BNP mildly elevated at 106. Troponin is normal. Negative procalcitonin. Patient having increased WOB and some anxiety related to BPAP. Low dose Ativan ordered. Further respiratory hygiene ordered with hour long neb. On reevaluation, the patient is less tachycardic. Her work of breathing is mildly improved. Patient is tolerating BPAP. Pending CT PE study. CT PE independently interpreted by me reveals no significant pulmonary edema, PNA or saddle embolus. Patient and updated throughout the course in the ED. Patient has high risk to decompensate. Given multiple issues requiring hospitalization, this was recommended and patient is agreeable. Ultimately, the decision was made to admit the patient for acute on chronic hypercapnic hypoxic respiratory failure secondary to COPD exacerbation as well as mild CHF exacerbation with concerns for possible cellulitis as a source of sepsis. It was recommended to admit this patient at 2001. I discussed the case with the hospitalist service via [employer] and they are agreeable to admit the patient to their services at 2011. Based on the above, including the patient's age, coexisting illnesses, labs, imaging, and exam findings the decision to treat as an inpatient. I discussed the patient with the hospitalist team who recommended admission to their services. They received the medications, treatments, interventions indicated above and their condition remained guarded. I discussed my findings with the patient and their family and they understand and agree with the treatment plan. All patient / family questions were answered to their satisfaction. Consults/Care Managements Discussions: Per [facility] ER treatment provided: See above Procedures:none Critical Care: I have personally spent 41 minutes of critical care time in direct management of this patient. This includes bedside care, interpretation of diagnostic studies, and testing, discussion with consultants, patient, and family members, and other require inpatient management activities. This 41 minutes is in excess of all separately billable procedures. The chart was completed utilizing [employer] Speech voice recognition software. Grammatical errors, random word insertions, pronoun errors, and incomplete sentences are an occasional consequence of this system due to software limitations, ambient noise, and hardware issues. Any formal questions or concerns about the content, text, or information contained within the body of this dictation should be directly addressed to the physician for clarification. Past Med/Surg History Problem List (Updated 12/15/24 @ 00:28 by Sharan Diez DO) Hypomagnesemia (Acute) Hypokalemia (Acute) Respiratory failure with hypoxia and hypercapnia (Acute) Cellulitis (Acute) CHF (congestive heart failure) (Acute) Sepsis (Acute) Acute exacerbation of chronic obstructive pulmonary disease (Acute) Hypomagnesemia Hypokalemia Sepsis Positive fecal immunochemical test Nail abnormalities Chronic venous stasis Chronic bronchitis Exertional shortness of breath Current smoker Abnormal chest CT Chest discomfort Tobacco dependence (Chronic) Alcohol abuse (Chronic) Pulmonary nodule (Acute) Chronic obstructive pulmonary disease (Chronic) Pneumonia involving right lung Cardiomyopathy Severe protein-calorie malnutrition Pneumothorax on right (Acute) Parapneumonic effusion COPD (chronic obstructive pulmonary disease) (Chronic) Empyema, right (Acute) Chronic systolic CHF (congestive heart failure) (Chronic) ETOH abuse (Acute) Anemia (Chronic) Intertrochanteric fracture of femur (Acute) Hyponatremia (Acute) Psychosocial problem Chronic pain Palpitation Atrial fibrillation Anticoagulant long-term use Angina at rest Osteopenia determined by x-ray Closed compression fracture of lumbar vertebra (Acute) Acute hyponatremia (Acute) Hyponatremia Encounter for examination following treatment at hospital Edema of both legs Right tibial fracture 2019 novel coronavirus not detected Nasal congestion Elevated troponin Medical History Back pain HX L2 FRACTURE>HEALED Leg cramps AT NIGHT Congestive heart failure Atrial fibrillation FOLLOWED BY [facility] COPD (chronic obstructive pulmonary disease) Surgical History History of total hip arthroplasty RT H/O abdominal surgery X 2 ? EXPLORATORY>MARTITA TAO, ABDOMINAL BENIGN MASS REMOVED A CHILD History of tonsillectomy History of tooth extraction Hx of appendectomy Family History Father Hairy cell leukemia Myocardial infarction Colorectal cancer Mother Multiple myeloma Other No family history of adverse response to anesthesia Denies family history of Ovarian cancer Prostate cancer Breast cancer Social History Smoking Status: Current every day smoker Tobacco Type: Cigarettes Age Started Using Tobacco: 16; packs per day: 1; Cigarettes Per Day: 30 CIG DAILY; Second Hand Exposure: No; Do You Dip or Chew Tobacco: No; Hx Alcohol Use: Yes Alcohol type: beer Alcohol Intake Frequency: 4 or More x per/Week Alcohol Intake Frequency Comment: 36-48 ounces of beer a day Hx Substance Use: No Preferred Language: Chinese Communication Ability: Effective 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 Beliefs That Will Affect Care: None marital status: marital status details: no children Current Living Situation: Spouse Current Living Situation Comment: lives in [place] by himself current occupational status: disabled other: 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 Feels Safe at Home: Yes Safety Concerns: Feels Safe At This Time caffeine: Yes Dental Care, Regularly: No Physical Activity Frequency: Does not Exercise Seatbelt Use: always Sunscreen Use: No Assistive Devices: Glasses and Wheelchair Allergies Allergies Allergy/AdvReac Type Severity Reaction Status Date / Time erythromycin base Allergy Intermediate hives or Verified 12/14/24 17:58 diarrhea Penicillins Allergy Intermediate hives or Verified 12/14/24 17:58 diarrhea NITRATES IN PROCESSED MEATS Allergy Severe Difficulty Uncoded 12/14/24 17:58 Breathing Home Meds Home Medications Medication Instructions Recorded Confirmed cetirizine 10 mg tablet 10 mg PO DAILY PRN Allergy Symptoms 12/29/18 12/14/24 multivitamin (Daily-Deanne tablet) 1 tab PO DAILY 07/20/20 12/14/24 ibuprofen 200 mg capsule 400 mg PO Q6H PRN Pain 06/24/22 12/14/24 magnesium 250 mg tablet 250 mg PO DAILY 09/16/22 12/14/24 Previous Rx's Medication Instructions Recorded nebulizers #1 ea 12/23/22 guaifenesin 600 mg tablet, 600 mg PO BID PRN congestion #60 01/28/23 extended release 12 hr (Mucinex) tabs albuterol sulfate 1.25 mg/3 mL 1.25 mg (3 mL) inhalation QID PRN 03/31/23 solution for nebulization shortness of breath or wheezing #360 mL potassium chloride 10 mEq 10 meq PO DAILY #90 tabs 06/08/24 tablet,extended release (Klor-Con) rivaroxaban 10 mg tablet (Xarelto) 10 mg PO QPM #90 tabs 06/27/24 furosemide 20 mg tablet (Lasix) 20 mg PO Q6H edema #120 tabs 10/18/24 metoprolol succinate 50 mg 50 mg PO DAILY #90 tabs 10/19/24 tablet,extended release 24 hr budesonide 160 mcg-glycopyr 9 2 inh inhalation BID #10.7 grams 10/25/24 mcg-formot 4.8 mcg/actuation HFA inhaler (Breztri Aerosphere) bupropion HCl 150 mg tablet,12 hr 150 mg PO BID #60 ea 11/08/24 sustained-release (Wellbutrin SR) albuterol sulfate 90 mcg/actuation 2 puff inhalation Q4H PRN 11/26/24 aerosol inhaler (Ventolin HFA) Shortness Of Breath Or Wheezing #18 grams oxycodone-acetaminophen 10 mg-325 1 tab PO Q6H PRN pain #60 tabs 12/14/24 mg tablet (Percocet) Results & Data (ED) Vital Signs Vital Signs - 24 hr 12/14/24 16:08 12/14/24 16:08 12/14/24 16:33 Temperature 37.7 C H Temperature Source Oral Pulse Rate 141 H 138 H Pulse Rate [Right Finger] Respiratory Rate 26 H Respiratory Effort / Characteristics Respiratory Depth Respiratory Pattern Blood Pressure 122/64 Blood Pressure [Right Arm] Blood Pressure Mean 83 Blood Pressure Mean [Right Arm] Pulse Oximetry 91 Oxygen Delivery Method Room Air Room Air Fraction of Inspired Oxygen SaO2/FiO2 Ratio Sepsis Recent Fever Within 48 Hours No Sepsis New/Unexplained Change in Mental Status No Sepsis Action Taken by Nursing Physician Notified 12/14/24 17:48 12/14/24 18:33 12/14/24 19:07 Temperature Temperature Source Pulse Rate 125 H Pulse Rate [Right Finger] 100 H Respiratory Rate 28 H 16 Respiratory Effort / Characteristics Spontaneous Non-Labored Non-Labored Respiratory Depth Retractive Normal Normal Respiratory Pattern Rapid/Deep Rapid/Shallow Tachypnea Blood Pressure Blood Pressure [Right Arm] 94/74 L Blood Pressure Mean Blood Pressure Mean [Right Arm] 80 Pulse Oximetry 95 96 Oxygen Delivery Method BiPAP Fraction of Inspired Oxygen 35 30 SaO2/FiO2 Ratio 320 Sepsis Recent Fever Within 48 Hours Sepsis New/Unexplained Change in Mental Status Sepsis Action Taken by Nursing 12/14/24 20:41 Temperature Temperature Source Pulse Rate 89 Pulse Rate [Right Finger] Respiratory Rate Respiratory Effort / Characteristics Respiratory Depth Respiratory Pattern Blood Pressure Blood Pressure [Right Arm] Blood Pressure Mean Blood Pressure Mean [Right Arm] Pulse Oximetry Oxygen Delivery Method Fraction of Inspired Oxygen SaO2/FiO2 Ratio Sepsis Recent Fever Within 48 Hours Sepsis New/Unexplained Change in Mental Status Sepsis Action Taken by Nursing Laboratory Data 12/14/24 16:21 12/14/24 16:21 Lab Results 12/14/24 12/14/24 12/14/24 Range/Units 16:21 16:25 16:56 WBC 24.42 H (4.8-10.8) K/ul RBC 4.97 (4.70-6.10) M/uL Hgb 16.1 (14.0-18.0) g/dl Hct 46.7 (42.0-52.0) % MCV 94.0 (80.0-100.0) fL MCH 32.4 (25.0-34.0) pg MCHC 34.5 (32.0-36.0) g/dL RDW Std Deviation 44.9 (36.4-46.3) fL RDW Coeff of Jm 13.2 (11.5-14.5) % Plt Count 291 (130-400) K/uL MPV 9.9 (9.4-12.4) fL Immature Gran % (Auto) 1.3 % Neut % (Auto) 88.2 % Lymph % (Auto) 4.2 % [place] % (Auto) 6.1 % Eos % (Auto) 0.0 % Baso % (Auto) 0.2 % Neut # (Auto) 21.50 H (1.40-6.50) K/uL Lymph # (Auto) 1.03 L (1.20-3.40) K/uL [place] # (Auto) 1.50 H (0.11-0.59) K/uL Eos # (Auto) 0.01 (0.00-0.50) K/uL Baso # (Auto) 0.06 (0.00-0.20) K/uL Immature Gran # (Auto) 0.32 H (0.01-0.20) K/uL RBC Morphology Unremarkable PT 12.4 H (9.0-12.0) Seconds INR 1.2 H (0.9-1.1) APTT 33 H (21-31) Seconds PTT Ratio 1.2 VBG pH 7.41 (7.36-7.41) VBG pCO2 54 H (38-50) mmHg VBG pO2 < 20 mmHg VBG HCO3 34 mmol/L VBG O2 Saturation < 60.0 % VBG Base Excess 7.8 mEq/L Sodium 139 (136-145) mmol/L Potassium 3.3 L (3.5-5.1) mmol/L Chloride 96 L (98-107) mmol/L Carbon Dioxide 32 (21-32) mmol/L Anion Gap 11 (3-11) BUN 14 (6-23) mg/dl Creatinine 1.16 (0.6-1.4) mg/dl Est Cr Clr Drug Dosing 60.9 ml/min eGFR 70.77 BUN/Creatinine Ratio 12.1 (10-20) Glucose 128 H (70-99(Fasting)) mg/dl Lactate 2.1 H* (0.4-2.0) mmol/L Calcium 9.4 (8.6-10.3) mg/dl Magnesium 1.6 L (1.7-2.4) mg/dl Total Bilirubin 1.0 (0.2-1.0) mg/dl AST 23 (13-39) U/L ALT 15 (7-52) U/L Alkaline Phosphatase 96 (34-104) U/L Troponin I High Sens 13.9 (0-20) pg/ml B-Natriuretic Peptide 106 H (0-100) pg/ml Total Protein 7.5 (6.0-8.3) gm/dl Albumin 4.0 (3.4-5.0) gm/dl Globulin 3.5 (2.5-4.0) gm/dl Albumin/Globulin Ratio 1.1 (0.9-2) Procalcitonin 0.36 (0-0.5) ng/ml Urine Color Urine Appearance (Clear) Urine pH (4.5-7.5) Ur Specific [place] (1.000-1.030) Urine Protein (Negative) Urine Glucose (UA) (Negative) Urine Ketones (Negative) Urine Blood (Negative) Urine Nitrite (Negative) Urine Bilirubin (Negative) Urine Urobilinogen (Negative) Ur Leukocyte Esterase (Negative) Urine WBC (Auto) (0-5) /hpf Urine RBC (Auto) (0-2) /hpf U Hyaline Cast (Auto) (0-2) /lpf U Epithel Cells (Auto) (0-2) /hpf Urine Bacteria (Auto) (None Seen) Urine Comment Adenovirus (PCR) Not Detected (NotDetected) B. pertussis DNA (PCR) Not Detected (NotDetected) B.parapertussis DNA PCR Not Detected (NotDetected) C. pneumoniae DNA (PCR) Not Detected (NotDetected) Coronavirus OC43 (PCR) Not Detected (NotDetected) Coronavirus HKU1 (PCR) Not Detected (NotDetected) Coronavirus 229E (PCR) Not Detected (NotDetected) SARS-CoV-2 (PCR) Not Detected (NotDetected) Coronavirus NL63 (PCR) Not Detected (NotDetected) Human Metapneumovir PCR Not Detected (NotDetected) Influenza Type A (PCR) Not Detected (NotDetected) Influenza Type B (PCR) Not Detected (NotDetected) M. pneumoniae (PCR) Not Detected (NotDetected) Parainfluenza 1 (PCR) Not Detected (NotDetected) Parainfluenza 2 (PCR) Not Detected (NotDetected) Parainfluenza 3 (PCR) Not Detected (NotDetected) Parainfluenza 4 (PCR) Not Detected (NotDetected) RSV (PCR) Not Detected (NotDetected) Entero/Rhino (PCR) Not Detected (NotDetected) 12/14/24 Range/Units 20:18 WBC (4.8-10.8) K/ul RBC (4.70-6.10) M/uL Hgb (14.0-18.0) g/dl Hct (42.0-52.0) % MCV (80.0-100.0) fL MCH (25.0-34.0) pg MCHC (32.0-36.0) g/dL RDW Std Deviation (36.4-46.3) fL RDW Coeff of Jm (11.5-14.5) % Plt Count (130-400) K/uL MPV (9.4-12.4) fL Immature Gran % (Auto) % Neut % (Auto) % Lymph % (Auto) % [place] % (Auto) % Eos % (Auto) % Baso % (Auto) % Neut # (Auto) (1.40-6.50) K/uL Lymph # (Auto) (1.20-3.40) K/uL [place] # (Auto) (0.11-0.59) K/uL Eos # (Auto) (0.00-0.50) K/uL Baso # (Auto) (0.00-0.20) K/uL Immature Gran # (Auto) (0.01-0.20) K/uL RBC Morphology PT (9.0-12.0) Seconds INR (0.9-1.1) APTT (21-31) Seconds PTT Ratio VBG pH (7.36-7.41) VBG pCO2 (38-50) mmHg VBG pO2 mmHg VBG HCO3 mmol/L VBG O2 Saturation % VBG Base Excess mEq/L Sodium (136-145) mmol/L Potassium (3.5-5.1) mmol/L Chloride (98-107) mmol/L Carbon Dioxide (21-32) mmol/L Anion Gap (3-11) BUN (6-23) mg/dl Creatinine (0.6-1.4) mg/dl Est Cr Clr Drug Dosing ml/min eGFR BUN/Creatinine Ratio (10-20) Glucose (70-99(Fasting)) mg/dl Lactate (0.4-2.0) mmol/L Calcium (8.6-10.3) mg/dl Magnesium (1.7-2.4) mg/dl Total Bilirubin (0.2-1.0) mg/dl AST (13-39) U/L ALT (7-52) U/L Alkaline Phosphatase (34-104) U/L Troponin I High Sens (0-20) pg/ml B-Natriuretic Peptide (0-100) pg/ml Total Protein (6.0-8.3) gm/dl Albumin (3.4-5.0) gm/dl Globulin (2.5-4.0) gm/dl Albumin/Globulin Ratio (0.9-2) Procalcitonin (0-0.5) ng/ml Urine Color Yellow Urine Appearance Clear (Clear) Urine pH 6.0 (4.5-7.5) Ur Specific [place] > 1.045 H (1.000-1.030) Urine Protein Trace H (Negative) Urine Glucose (UA) Negative (Negative) Urine Ketones Trace H (Negative) Urine Blood Negative (Negative) Urine Nitrite Negative (Negative) Urine Bilirubin Negative (Negative) Urine Urobilinogen Negative (Negative) Ur Leukocyte Esterase Negative (Negative) Urine WBC (Auto) 0-5 (0-5) /hpf Urine RBC (Auto) 0-2 (0-2) /hpf U Hyaline Cast (Auto) 0-2 (0-2) /lpf U Epithel Cells (Auto) 0-2 (0-2) /hpf Urine Bacteria (Auto) None Seen (None Seen) Urine Comment Adenovirus (PCR) (NotDetected) B. pertussis DNA (PCR) (NotDetected) B.parapertussis DNA PCR (NotDetected) C. pneumoniae DNA (PCR) (NotDetected) Coronavirus OC43 (PCR) (NotDetected) Coronavirus HKU1 (PCR) (NotDetected) Coronavirus 229E (PCR) (NotDetected) SARS-CoV-2 (PCR) (NotDetected) Coronavirus NL63 (PCR) (NotDetected) Human Metapneumovir PCR (NotDetected) Influenza Type A (PCR) (NotDetected) Influenza Type B (PCR) (NotDetected) M. pneumoniae (PCR) (NotDetected) Parainfluenza 1 (PCR) (NotDetected) Parainfluenza 2 (PCR) (NotDetected) Parainfluenza 3 (PCR) (NotDetected) Parainfluenza 4 (PCR) (NotDetected) RSV (PCR) (NotDetected) Entero/Rhino (PCR) (NotDetected) Administered Medications Acetaminophen (Acetaminophen 325 Mg Tab) 650 mg PO Q4H PRN PRN Reason: Pain or Fever Stop: 01/13/25 22:50 Last Admin: 12/14/24 23:15 Dose: 650 mg Documented By: ASM Albuterol (Albut/Ipratrop 3mg/0.5mg Neb 3 Ml Vial) 3 ml NEB Q4R CECILIO; Protocol Stop: 01/13/25 22:59 Last Admin: 12/14/24 23:20 Dose: 3 ml Documented By: GLENYS Melatonin (Melatonin 3 Mg Tab) 3 mg PO HS PRN PRN Reason: Sleep Stop: 01/13/25 22:50 Last Admin: 12/14/24 23:16 Dose: 3 mg Documented By: ASM Discontinued Medications Acetaminophen (Acetaminophen 500 Mg Tab) 1,000 mg PO NOW STA Stop: 12/14/24 17:00 Last Admin: 12/14/24 17:03 Dose: 1,000 mg Documented By: ARS Albuterol (Albut/Ipratrop 3mg/0.5mg Neb 3 Ml Vial) 3 ml INH NOW STA Stop: 12/14/24 16:21 Last Admin: 12/14/24 16:28 Dose: 3 ml Documented By: CTK Albuterol (Albut/Ipratrop 3mg/0.5mg Neb 3 Ml Vial) 12 ml NEB ONE ONE; Protocol Stop: 12/14/24 17:48 Last Admin: 12/14/24 17:47 Dose: 12 ml Documented By: [id number] Cefepime HCl (Maxipime 2000mg) 2,000 mg in 20 mls @ 5 mls/min IV NOW STA; Protocol Stop: 12/14/24 16:45 Last Admin: 12/14/24 17:03 Dose: 5 mls/min Documented By: LEONARDA Magnesium Sulfate/Dextrose (Magnesium Sulfate / D5w) 1 gm in 100 mls @ 200 mls/hr IV Q30M CECILIO Stop: 12/14/24 18:12 Last Infusion: 12/14/24 20:05 Dose: Infused Documented By: CTJosefa Admin: 12/14/24 19:28 Dose: 200 mls/hr Documented By: Infusion: 12/14/24 19:28 Dose: Infused Documented By: Admin: 12/14/24 18:58 Dose: 200 mls/hr Documented By: TRAE Lactated Ringer's (Lr) 1,000 mls @ 999 mls/hr IV .Q1H1M ONE Stop: 12/14/24 22:01 Last Admin: 12/14/24 21:14 Dose: 999 mls/hr Documented By: NOEMY Lactated Ringer's (Lr) 1,000 mls @ 999 mls/hr IV .Q1H1M ONE Stop: 12/14/24 22:46 Last Admin: 12/14/24 23:15 Dose: 999 mls/hr Documented By: PAULINA Ioversol (Optiray 320 125ml) 118 ml IV ONCE ONE Stop: 12/14/24 18:40 Last Admin: 12/14/24 18:40 Dose: 118 ml Documented By: JAVON Lorazepam (Lorazepam 2 Mg/1 Ml Vial) Confirm Administered Dose 2 mg .ROUTE .STK- MED ONE Stop: 12/14/24 17:46 Last Admin: 12/14/24 17:50 Dose: 0.5 mg Documented By: SANDIE Lorazepam (Lorazepam 2 Mg/1 Ml Vial) 0.5 mg IV NOW STA Stop: 12/14/24 17:51 Last Admin: 12/14/24 17:52 Dose: Not Given Documented By: SANDIE Miscellaneous Information (Nursing To Pharmacy Communication) 1 each N/A TODAY CECILIO Stop: 01/13/25 19:44 Last Admin: 12/14/24 20:23 Dose: 1 each Documented By: CTK Potassium Chloride (Potassium Chloride Crtab 20 Meq Tabcr) 40 meq PO NOW STA Stop: 12/14/24 19:56 Last Admin: 12/14/24 20:18 Dose: 40 meq Documented By: CTK Imaging Data Radiologist's Impression: Chest X-Ray 12/14/24 16:20 Clinical History: Dyspnea Technique: 2 frontal views of the chest were obtained Comparison is made to the prior examination dated 09/02/2019 Findings: There are no confluent pulmonary infiltrates. The heart size is within normal limits. No pleural effusion or pneumothorax is seen. There is suspected mild pulmonary edema No fracture is noted. No foreign body is seen Impression: Suspected mild pulmonary edema Electronically signed by Hector Brooks 12-14-2024 5:10 PM Chest CTA 12/14/24 16:56 EXAM: CT angio chest PE protocol CLINICAL HISTORY: SOB, DVT possible RLE, sepsis, eval for PE and PNA TECHNIQUE: Contiguous 3.[address] angiographic images of the chest were acquired with the administration of intravenous contrast. 118ml of 320 intravenous contrast was administered. Coronal and sagittal reconstructions were obtained. One of these 3D techniques was utilized: Maximum Intensity Pixel (MIP), 3D Reconstructed Images, Volume Rendered Images, Surface Shaded Rendering. One of the following dose reduction techniques were utilized for this exam: Automated exposure control, adjustment of the mA and/or kV according to patient size, and use of iterative reconstruction. DLP: 897.50 mGy.cm COMPARISON: 04/29/2023 CT FINDINGS: Aorta: The thoracic aorta is normal in caliber. No evidence of aneurysm, dissection. Diffuse atherosclerotic changes are noted. Aortic arch and descending thoracic aorta are unremarkable. Pulmonary Arteries: Pulmonary arteries are normal in size and opacification. No evidence of pulmonary embolism. No stenosis or filling defects. Superior Vena Cava (SVC) and Inferior Vena Cava (IVC): Normal opacification and caliber. No evidence of thrombus or obstruction. Coronary Arteries: Coronary arteries are well-opacified. No significant stenosis. Atherosclerotic changes are noted. Mediastinum: No mediastinal mass or lymphadenopathy. Normal appearance of the thymus. Heart: Normal size and morphology of the heart. No pericardial effusion. Lungs: Unchanged bilateral apical reticulations likely representing sequel of old granulomatous disease. No evidence of consolidation, nodules, or masses. Unchanged diffuse bilateral centrilobular emphysema. Unchanged bilateral basal fibroatelectatic bands more evident on the right side. No pleural effusion or thickening. Bones: No fractures or lytic/sclerotic lesions of the visualized bony structures. Normal alignment. Unchanged spondylodegenerative changes of the thoracic spine. Unchanged diffuse osteopenic texture. Soft Tissues: Normal appearance of the visualized soft tissues. No abnormal masses or fluid collections. IMPRESSION: 1. No CT evidence of pulmonary embolism. 2. Bilateral diffuse centrilobular emphysema. 3. No interval changes. Electronically signed by Denny Lui 12-14-2024 8:04 PM Discharge Plan Visit Data Chief Complaint: Shortness of Breath/Dyspnea Stated Complaint: Shortness of Breath/Dyspnea ED Provider: Sharan Diez Discharge Problem: Acute exacerbation of chronic obstructive pulmonary disease, Sepsis, CHF (congestive heart failure), Cellulitis, Respiratory failure with hypoxia and hypercapnia, Hypokalemia, Hypomagnesemia Patient Disposition: Admitted As Inpatient Condition: Serious Discharge Instructions Interventions: ED Discharge Assessment Last Done: 12/14/24 22:09 Discharge Problem: Sepsis Qualifiers: Sepsis type: sepsis due to unspecified organism Sepsis acute organ dysfunction status: with acute organ dysfunction Severe sepsis acute organ dysfunction type: acute respiratory failure CHF (congestive heart failure) Qualifiers: Heart failure type: systolic Heart failure chronicity: chronic Qualified Code(s): I50.22 - Chronic systolic (congestive) heart failure Cellulitis Qualifiers: Site of cellulitis: extremity Site of cellulitis of extremity: lower extremity Laterality: right Qualified Code(s): L03.115 - Cellulitis of right lower limb Respiratory failure with hypoxia and hypercapnia Qualifiers: Chronicity: acute on chronic Qualified Code(s): J96.21 - Acute and chronic respiratory failure with hypoxia
[2024-12-14] MEDS: ALBUT/IPRATROP 3MG/0.5MG NEB 3 ML VIAL INH STA (16:28)
[2024-12-14 16:34] LABS: Base Excess VBG 7.8 mEq/L; HCO3 VBG 34 mmol/L; Oxygen Saturation VBG < 60.0 %; PCO2 VBG 54 mmHg (38-50); PO2 VBG < 20 mmHg; pH VBG 7.41 (7.36-7.41)
[2024-12-14 16:38] LABS: Hematocrit (blood only) 46.7 % (42.0-52.0); Hemoglobin 16.1 g/dl (14.0-18.0); Mean Corpuscular Hemoglobin 32.4 pg (25.0-34.0); Mean Corpuscular Volume 94.0 fL (80.0-100.0); Platelet Count 291 K/uL (130-400); RDW Standard Deviation 44.9 fL (36.4-46.3); Red Blood Count 4.97 M/uL (4.70-6.10); White Blood Count 24.42 K/ul (4.8-10.8)
[2024-12-14 16:56] LABS: Alanine Aminotransferase 15.0 U/L (7-52); Albumin Globulin Ratio 1.1 (0.9-2); Alkaline Phosphatase 96.0 U/L (34-104); Anion Gap 11.0 (3-11); Bilirubin,Total 1.0 mg/dl (0.2-1.0); Blood Urea Nitrogen 14.0 mg/dl (6-23); Calcium 9.4 mg/dl (8.6-10.3); Carbon Dioxide 32.0 mmol/L (21-32); Chloride 96.0 mmol/L (98-107); Creatinine Clr Calc Pharmacy 60.9 ml/min; Globulin 3.5 gm/dl (2.5-4.0); Glucose 128.0 mg/dl (70-99(Fasting)); Magnesium 1.6 mg/dl (1.7-2.4); Potassium 3.3 mmol/L (3.5-5.1); Sodium 139.0 mmol/L (136-145); Total Protein 7.5 gm/dl (6.0-8.3)
[2024-12-14] MEDS: CEFEPIME 2000MG 2,000 MG/20 ML SYR IV STA (17:03)
[2024-12-14] MEDS: ACETAMINOPHEN 500 MG TAB PO STA (17:03)
[2024-12-14 17:06] LABS: INR 1.2 (0.9-1.1); Partial Thromboplastin Time 33 Seconds (21-31); Prothrombin Time 12.4 Seconds (9.0-12.0)
--- NOTE | 2024-12-14 17:11 | XRay Report ---
Clinical History: Dyspnea Technique: 2 frontal views of the chest were obtained Comparison is made to the prior examination dated 09/02/2019 Findings: There are no confluent pulmonary infiltrates. The heart size is within normal limits. No pleural effusion or pneumothorax is seen. There is suspected mild pulmonary edema No fracture is noted. No foreign body is seen Impression: Suspected mild pulmonary edema Electronically signed by Hector Brooks 12-14-2024 5:10 PM
[2024-12-14 17:28] LABS: Chlamydia pneumoniae PCR Not Detected (NotDetected); Coronavirus 229E PCR Not Detected (NotDetected); Coronavirus CoV-2 (COVID19)PCR Not Detected (NotDetected); Coronavirus HKU1 PCR Not Detected (NotDetected); Coronavirus NL63 PCR Not Detected (NotDetected); Coronavirus OC43PCR Not Detected (NotDetected); Human Metapneumovirus PCR Not Detected (NotDetected); Parainfluenza Virus 1 PCR Not Detected (NotDetected); Parainfluenza Virus 2 PCR Not Detected (NotDetected); Parainfluenza Virus 3 PCR Not Detected (NotDetected); Parainfluenza Virus 4 PCR Not Detected (NotDetected); Respiratory Syncytial VirusPCR Not Detected (NotDetected); Rhinovirus/Enterovirus PCR Not Detected (NotDetected)
[2024-12-14 17:45] LABS: Immature Granulocytes # (auto) 0.32 K/uL (0.01-0.20); Immature Granulocytes % (auto) 1.3 %; RBC Morphology Unremarkable
[2024-12-14] MEDS: ALBUT/IPRATROP 3MG/0.5MG NEB 3 ML VIAL NEB ONE (17:47)
[2024-12-14] MEDS: OPTIRAY 320 125ml IV ONE (18:40)
[2024-12-14] MEDS: MAGNESIUM SULFATE / D5W 1 GM/100 ML BAG IV SCH (18:58)
--- NOTE | 2024-12-14 20:04 | CT Scan Report ---
EXAM: CT angio chest PE protocol CLINICAL HISTORY: SOB, DVT possible RLE, sepsis, eval for PE and PNA TECHNIQUE: Contiguous 3.[address] angiographic images of the chest were acquired with the administration of intravenous contrast. 118ml of 320 intravenous contrast was administered. Coronal and sagittal reconstructions were obtained. One of these 3D techniques was utilized: Maximum Intensity Pixel (MIP), 3D Reconstructed Images, Volume Rendered Images, Surface Shaded Rendering. One of the following dose reduction techniques were utilized for this exam: Automated exposure control, adjustment of the mA and/or kV according to patient size, and use of iterative reconstruction. DLP: 897.50 mGy.cm COMPARISON: 04/29/2023 CT FINDINGS: Aorta: The thoracic aorta is normal in caliber. No evidence of aneurysm, dissection. Diffuse atherosclerotic changes are noted. Aortic arch and descending thoracic aorta are unremarkable. Pulmonary Arteries: Pulmonary arteries are normal in size and opacification. No evidence of pulmonary embolism. No stenosis or filling defects. Superior Vena Cava (SVC) and Inferior Vena Cava (IVC): Normal opacification and caliber. No evidence of thrombus or obstruction. Coronary Arteries: Coronary arteries are well-opacified. No significant stenosis. Atherosclerotic changes are noted. Mediastinum: No mediastinal mass or lymphadenopathy. Normal appearance of the thymus. Heart: Normal size and morphology of the heart. No pericardial effusion. Lungs: Unchanged bilateral apical reticulations likely representing sequel of old granulomatous disease. No evidence of consolidation, nodules, or masses. Unchanged diffuse bilateral centrilobular emphysema. Unchanged bilateral basal fibroatelectatic bands more evident on the right side. No pleural effusion or thickening. Bones: No fractures or lytic/sclerotic lesions of the visualized bony structures. Normal alignment. Unchanged spondylodegenerative changes of the thoracic spine. Unchanged diffuse osteopenic texture. Soft Tissues: Normal appearance of the visualized soft tissues. No abnormal masses or fluid collections. IMPRESSION: 1. No CT evidence of pulmonary embolism. 2. Bilateral diffuse centrilobular emphysema. 3. No interval changes. Electronically signed by Denny Lui 12-14-2024 8:04 PM
[2024-12-14] MEDS: POTASSIUM CHLORIDE CRTAB 20 MEQ TABCR PO STA ×2 (20:13→20:18)
[2024-12-14] MEDS: Nursing to Pharmacy Communication SCH (20:23)
--- NOTE | 2024-12-14 20:44 | History & Physical Report ---
Date of Service December 14, 2024 Assessment & Plan (1) Sepsis: (2) Chronic venous stasis: (3) Hypokalemia: (4) Hypomagnesemia: Plan 64-year-old male PMHx alcohol abuse, anemia, COPD, CHF, chronic venous stasis, prior PTX (R) presenting for respiratory distress starting the day of arrival. ED evaluation reveals CBC with leukocytosis 24.42, stable H&H; PT/INR 12.4/1.2, APTT 33; VBG's PCO2 54; CMP potassium 3.3, chloride 96, glucose 128; magnesium 1.6; lactate 2.1; BNP 106; troponin 13.9; procalcitonin 0.36; BioFire negative; CXR suspected mild pulmonary edema; chest CTA no PE, diffuse bilateral centrilobular emphysema; EKG SVT at 143 bpm.; Provided with KCl 40 mEq p.o., mag sulfate 2 g IV, lorazepam 0.5 mg IV, cefepime 2 g IV, albuterol nebulizer, albuterol inhaler, and acetaminophen 1 g IV in ED. #Sepsis/? COPD exacerbation Presenting for respiratory distress, cough ongoing with sputum production. No oxygen at baseline, requiring BiPAP at time of admission. 30 mL/kg ideal body weight fluid total is 2,018 mL, received ~ 200 mL in ED through additional medications/routes of administration. Patient does meet sepsis criteria at admission, leukocytosis of 24.42, RR 26, T 37.7 C, HR 141. Initial lactate 2.1. History of Pseudomonas on prior pleural fluid specimen. Received cefepime in ED. - CBC leukocytosis 24.42; VBG's PCO2 54; lactate 2.1, pending repeat following fluids; procalcitonin 0.36 - CBC am - BioFire negative; UA negative - Pending blood cultures - Troponin 13.9; EKG SVT at 143 bpm - CXR suspected all pulmonary edema - Chest CTA no PE, diffuse bilateral centrilobular emphysema - Flutter valve + Incentive spirometer - No home O2; supplemental O2 as patient requires, BiPAP currently - will de- escalate as tolerated - LR 2L bolus now, then repeat lactate - Acetaminophen prn fever/pain - Zofran prn N/V - DuoNebs every 4 hours - Cefepime IV started #Chronic venous stasis/BLE edema BLE edema, ongoing, not necessarily worse per patient. On Xarelto at baseline. Do not presently suspect cellulitis. - CBC with leukocytosis of 24.42, lactate 2.1 - CBC am - Local skin care #Hypokalemia Asymptomatic currently, in setting of hypomagnesemia. Received KCl 40 mEq in ED, on KCl 10 mEq daily as outpatient. - K 3.3; Mg 1.6 - BMP am - Continue KCl 10 mEq daily #Hypomagnesemia In setting of hypokalemia. Received Mag sulfate 2g in ED, takes magnesium po daily. - Mg 1.6 - Mg am - Continue po mag #Alcohol abuse- Chronic, drinks 48 oz beer/day, h/o WD 6 years ago; NOT interested in quitting/cutting back; CXR not revealing aspiration - monitor, beer QID ordered #CHF- BNP 106; CXR suspected mild pulmonary edema; At home furosemide; On BiPAP at admission - HOLD furosemide night of admission in setting of sepsis #Anemia- H&H on admission 16.1/46.7 - CBC am #A-fib- Xarelto, metoprolol - Continue with holding parameters on metoprolol #Psych- Bupropion - continue Dispo: Admit, PCU VTE prophylaxis: On Xarelto - continue This document was dictated utilizing Zigswitch. Please excuse any grammatical errors that may be secondary to use of this software. Admission and Anticipated Discharge Date Admission Date: 12/14/2024 History of Present Illness Chief Complaint: SOB Primary Care Provider: Lora Narvaez MD 64-year-old male PMHx alcohol abuse, anemia, COPD, CHF, chronic venous stasis, prior PTX (R) presenting for respiratory distress starting the day of arrival. EMS provided patient with Solu-Medrol 125 mg and DuoNeb en route. Also with BLE edema and erythema. History limited due to patient being on BiPAP during evaluation. States that SOB has been increasing over the past "few days" and he has been coughing with a mercer tinged sputum being produced at times. He denies F/C, no chest pain or palpitations. Reports that his legs have had some mild swelling but not significantly more from his baseline, and they are not causing pain. No recent injury to legs. He reports that he was most concerned about his worsening SOB. He is not on O2 at baseline. Denies CP, palpitations, abdominal pain, N/V/D/C, URI symptoms, LUTS, weakness, or syncope. ED evaluation reveals CBC with leukocytosis 24.42, stable H&H; PT/INR 12.4/1.2, APTT 33; VBG's [id number]; CMP potassium 3.3, chloride 96, glucose 128; magnesium 1.6; lactate 2.1; BNP 106; troponin 13.9; procalcitonin 0.36; BioFire negative; CXR suspected mild pulmonary edema; chest CTA no PE, diffuse bilateral centrilobular emphysema; EKG SVT at 143 bpm.; Provided with KCl 40 mEq p.o., mag sulfate 2 g IV, lorazepam 0.5 mg IV, cefepime 2 g IV, albuterol nebulizer, albuterol inhaler, and acetaminophen 1 g IV in ED. Please see Dr. Plunkett's attestation for adjustments/additions to treatment plan. Allergies Allergy/AdvReac Type Severity Reaction Status Date / Time erythromycin base Allergy Intermediate hives or Verified 12/14/24 17:58 diarrhea Penicillins Allergy Intermediate hives or Verified 12/14/24 17:58 diarrhea NITRATES IN PROCESSED MEATS Allergy Severe Difficulty Uncoded 12/14/24 17:58 Breathing Home Medications Medication Instructions Recorded Confirmed Type cetirizine 10 mg tablet 10 mg PO DAILY PRN Allergy Symptoms 12/29/18 12/14/24 History multivitamin (Daily-Deanne tablet) 1 tab PO DAILY 07/20/20 12/14/24 History ibuprofen 200 mg capsule 400 mg PO Q6H PRN Pain 06/24/22 12/14/24 History magnesium 250 mg tablet 250 mg PO DAILY 09/16/22 12/14/24 History nebulizers #1 ea 12/23/22 04/18/24 Rx guaifenesin 600 mg tablet, 600 mg PO BID PRN congestion #60 01/28/23 12/14/24 Rx extended release 12 hr (Mucinex) tabs albuterol sulfate 1.25 mg/3 mL 1.25 mg (3 mL) inhalation QID PRN 03/31/23 12/14/24 Rx solution for nebulization shortness of breath or wheezing #360 mL potassium chloride 10 mEq 10 meq PO DAILY #90 tabs 06/08/24 12/14/24 Rx tablet,extended release (Klor-Con) rivaroxaban 10 mg tablet (Xarelto) 10 mg PO QPM #90 tabs 06/27/24 12/14/24 Rx furosemide 20 mg tablet (Lasix) 20 mg PO Q6H edema #120 tabs 10/18/24 12/14/24 Rx metoprolol succinate 50 mg 50 mg PO DAILY #90 tabs 10/19/24 12/14/24 Rx tablet,extended release 24 hr budesonide 160 mcg-glycopyr 9 2 inh inhalation BID #10.7 grams 10/25/24 12/14/24 Rx mcg-formot 4.8 mcg/actuation HFA inhaler (Breztri Aerosphere) bupropion HCl 150 mg tablet,12 hr 150 mg PO BID #60 ea 11/08/24 12/14/24 Rx sustained-release (Wellbutrin SR) albuterol sulfate 90 mcg/actuation 2 puff inhalation Q4H PRN 11/26/24 12/14/24 Rx aerosol inhaler (Ventolin HFA) Shortness Of Breath Or Wheezing #18 grams oxycodone-acetaminophen 10 mg-325 1 tab PO Q6H PRN pain #60 tabs 12/14/24 12/14/24 Rx mg tablet (Percocet) Past Med/Surg History Problem List (Updated 12/14/24 @ 21:28 by Ortiz Molina PA-C) Hypomagnesemia Hypokalemia Sepsis Positive fecal immunochemical test Nail abnormalities Chronic venous stasis Chronic bronchitis Exertional shortness of breath Current smoker Abnormal chest CT Chest discomfort Tobacco dependence (Chronic) Alcohol abuse (Chronic) Pulmonary nodule (Acute) Chronic obstructive pulmonary disease (Chronic) Pneumonia involving right lung Cardiomyopathy Severe protein-calorie malnutrition Pneumothorax on right (Acute) Parapneumonic effusion COPD (chronic obstructive pulmonary disease) (Chronic) Empyema, right (Acute) Chronic systolic CHF (congestive heart failure) (Chronic) ETOH abuse (Acute) Anemia (Chronic) Intertrochanteric fracture of femur (Acute) Hyponatremia (Acute) Psychosocial problem Chronic pain Palpitation Atrial fibrillation Anticoagulant long-term use Angina at rest Osteopenia determined by x-ray Closed compression fracture of lumbar vertebra (Acute) Acute hyponatremia (Acute) Hyponatremia Encounter for examination following treatment at hospital Edema of both legs Right tibial fracture 2018 novel coronavirus not detected Nasal congestion Elevated troponin Medical History Back pain HX L2 FRACTURE>HEALED Leg cramps AT NIGHT Congestive heart failure Atrial fibrillation FOLLOWED BY [facility] COPD (chronic obstructive pulmonary disease) Surgical History History of total hip arthroplasty RT H/O abdominal surgery X 2 ? EXPLORATORY>MARTITA TAO, ABDOMINAL BENIGN MASS REMOVED A CHILD History of tonsillectomy History of tooth extraction Hx of appendectomy Family History Father Hairy cell leukemia Myocardial infarction Colorectal cancer Mother Multiple myeloma Other No family history of adverse response to anesthesia Denies family history of Ovarian cancer Prostate cancer Breast cancer Social History Smoking Status: Current every day smoker Tobacco Type: Cigarettes Age Started Using Tobacco: 16; packs per day: 1; Cigarettes Per Day: 30 CIG DAILY; Second Hand Exposure: No; Do You Dip or Chew Tobacco: No; Hx Alcohol Use: Yes Alcohol type: beer Alcohol Intake Frequency: 4 or More x per/Week Alcohol Intake Frequency Comment: 36-48 ounces of beer a day Hx Substance Use: No Preferred Language: Maltese Communication Ability: Effective 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: No Beliefs That Will Affect Care: None marital status: marital status details: no children Current Living Situation: Spouse Current Living Situation Comment: lives in [place] by himself current occupational status: disabled other: 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 Head: Normocephalic, atraumatic Eyes: PERRL, conjunctivae clear, sclera non-icteric ENT: External ear and ear canal without swelling; nose atraumatic; good dentition, tongue normal appearance, pharynx normal Neck: Supple, no LAD Cardio: RRR, no M/G/R, S1 and S2 normal Resp: On BiPAP, expiratory wheezing upper lung clark Abdomen: Soft, symmetric, nontender; No masses or hepatosplenomegaly; Bowel sounds normoactive MSK: No deformities; pulses palpable and equal; 1+ pitting edema BLE. Neuro: Awake, alert; Sensation intact bilaterally; CN grossly intact Psych: Sleepy; Appropriate mood and affect; good judgement and insight. Results & Data Results & Data Vital Signs (Past 12 Hours) Vital Signs Temp Pulse Pulse Resp BP BP Pulse Ox 12/14/24 20:41 89 12/14/24 19:07 100 H 16 94/74 L 96 12/14/24 17:48 125 H 28 H 95 12/14/24 16:33 138 H 12/14/24 16:08 12/14/24 16:08 37.7 C H 141 H 26 H 122/64 91 O2 Del Method FiO2 12/14/24 20:41 12/14/24 19:07 BiPAP 30 12/14/24 17:48 35 12/14/24 16:33 12/14/24 16:08 Room Air 12/14/24 16:08 Room Air Laboratory Results 12/14/24 16:56 Aerobic Blood Culture - Pending Blood Anaerobic Blood Culture - Pending 12/14/24 16:56 Aerobic Blood Culture - Pending Blood Anaerobic Blood Culture - Pending 12/14/24 12/14/24 12/14/24 16:56 16:25 16:21 WBC 24.42 H RBC 4.97 Hgb 16.1 Hct 46.7 MCV 94.0 MCH 32.4 MCHC 34.5 RDW Std Deviation 44.9 RDW Coeff of Jm 13.2 Plt Count 291 MPV 9.9 Immature Gran % (Auto) 1.3 Neut % (Auto) 88.2 Lymph % (Auto) 4.2 Moca % (Auto) 6.1 Eos % (Auto) 0.0 Baso % (Auto) 0.2 Neut # (Auto) 21.50 H Lymph # (Auto) 1.03 L Moca # (Auto) 1.50 H Eos # (Auto) 0.01 Baso # (Auto) 0.06 Immature Gran # (Auto) 0.32 H RBC Morphology Unremarkable PT 12.4 H INR 1.2 H APTT 33 H PTT Ratio 1.2 VBG pH 7.41 VBG pCO2 54 H VBG pO2 < 20 VBG HCO3 34 VBG O2 Saturation < 60.0 VBG Base Excess 7.8 Sodium 139 Potassium 3.3 L Chloride 96 L Carbon Dioxide 32 Anion Gap 11 BUN 14 Creatinine 1.16 Est Cr Clr Drug Dosing 60.9 eGFR 70.77 BUN/Creatinine Ratio 12.1 Glucose 128 H Lactate 2.1 H* Calcium 9.4 Magnesium 1.6 L Total Bilirubin 1.0 AST 23 ALT 15 Alkaline Phosphatase 96 Troponin I High Sens 13.9 B-Natriuretic Peptide 106 H Total Protein 7.5 Albumin 4.0 Globulin 3.5 Albumin/Globulin Ratio 1.1 Procalcitonin 0.36 Adenovirus (PCR) Not Detected B. pertussis DNA (PCR) Not Detected B.parapertussis DNA PCR Not Detected C. pneumoniae DNA (PCR) Not Detected Coronavirus OC43 (PCR) Not Detected Coronavirus HKU1 (PCR) Not Detected Coronavirus 229E (PCR) Not Detected SARS-CoV-2 (PCR) Not Detected Coronavirus NL63 (PCR) Not Detected Human Metapneumovir PCR Not Detected Influenza Type A (PCR) Not Detected Influenza Type B (PCR) Not Detected M. pneumoniae (PCR) Not Detected Parainfluenza 1 (PCR) Not Detected Parainfluenza 2 (PCR) Not Detected Parainfluenza 3 (PCR) Not Detected Parainfluenza 4 (PCR) Not Detected RSV (PCR) Not Detected Entero/Rhino (PCR) Not Detected Diagnostic Findings Chest X-Ray 12/14/24 16:20 Clinical History: Dyspnea Technique: 2 frontal views of the chest were obtained Comparison is made to the prior examination dated 09/02/2019 Findings: There are no confluent pulmonary infiltrates. The heart size is within normal limits. No pleural effusion or pneumothorax is seen. There is suspected mild pulmonary edema No fracture is noted. No foreign body is seen Impression: Suspected mild pulmonary edema Electronically signed by Hector Brooks 12-14-2024 5:10 PM Chest CTA 12/14/24 16:56 EXAM: CT angio chest PE protocol CLINICAL HISTORY: SOB, DVT possible RLE, sepsis, eval for PE and PNA TECHNIQUE: Contiguous 3.[address] angiographic images of the chest were acquired with the administration of intravenous contrast. 118ml of 320 intravenous contrast was administered. Coronal and sagittal reconstructions were obtained. One of these 3D techniques was utilized: Maximum Intensity Pixel (MIP), 3D Reconstructed Images, Volume Rendered Images, Surface Shaded Rendering. One of the following dose reduction techniques were utilized for this exam: Automated exposure control, adjustment of the mA and/or kV according to patient size, and use of iterative reconstruction. DLP: 897.50 mGy.cm COMPARISON: 04/29/2023 CT FINDINGS: Aorta: The thoracic aorta is normal in caliber. No evidence of aneurysm, dissection. Diffuse atherosclerotic changes are noted. Aortic arch and descending thoracic aorta are unremarkable. Pulmonary Arteries: Pulmonary arteries are normal in size and opacification. No evidence of pulmonary embolism. No stenosis or filling defects. Superior Vena Cava (SVC) and Inferior Vena Cava (IVC): Normal opacification and caliber. No evidence of thrombus or obstruction. Coronary Arteries: Coronary arteries are well-opacified. No significant stenosis. Atherosclerotic changes are noted. Mediastinum: No mediastinal mass or lymphadenopathy. Normal appearance of the thymus. Heart: Normal size and morphology of the heart. No pericardial effusion. Lungs: Unchanged bilateral apical reticulations likely representing sequel of old granulomatous disease. No evidence of consolidation, nodules, or masses. Unchanged diffuse bilateral centrilobular emphysema. Unchanged bilateral basal fibroatelectatic bands more evident on the right side. No pleural effusion or thickening. Bones: No fractures or lytic/sclerotic lesions of the visualized bony structures. Normal alignment. Unchanged spondylodegenerative changes of the thoracic spine. Unchanged diffuse osteopenic texture. Soft Tissues: Normal appearance of the visualized soft tissues. No abnormal masses or fluid collections. IMPRESSION: 1. No CT evidence of pulmonary embolism. 2. Bilateral diffuse centrilobular emphysema. 3. No interval changes. Electronically signed by Denny Lui 12-14-2024 8:04 PM Medications Administered KCl 40 mEq p.o. Magnesium sulfate 2 g IV Lorazepam 2 mg IV, lorazepam 0.5 mg IV Cefepime 2 g IV Albuterol 12 mL neb x 1 Albuterol 3 mL inhaler x 1 Acetaminophen 1 g IV ECG Additional Comments: SVT 143 bpm, QRS 78, QT/QTc 236/518, PRT*/76/86 Code Status & VTE Plan Code Status Full Supervising Physician Co-Signing Physician Notes Patient seen and examined, chart reviewed, case discussed with MARQUIS Molina and I agree with the assessment and plan as above. In brief, patient is a 64yo male with history of CHF, COPD, EtOH abuse presenting with SOB. Leukocytosis. Febrile in the ER with episode of low blood pressure 94/74 Patient tachycardic on arrival, some increased work of breathing started on BiPAP On exam he is resting comfortably, NAD Skin - photo as above of bilateral LE, redness/warmth HEENT - MMM, Neck supple, BiPAP in place Heart - +S1/S2, regular, no m/r/g Lungs - markedly diminished breath sounds, scattered end-expiratory wheezing, no rhonchi or rales Abd - soft, NT?ND Ext- as above Labs and images reviewed WBC=24.42 with neutrophil predominance and bands present Lactate = 2.1 CTA with no PNA or PE Prior wound with serratia marcescens Assessment/Plan -Continue IVF -Continue Cefepime -Follow cultures -Continue BiPAP - wean as tolerated -DuoNeb q 4 hours with Albuterol q 4 hours PRN -Continue Trelegy -Solumedrol 40mg IV BID -Beer QID - patient does not wish to quit drinking -Remainder as above PG Care Time/CCT Total # of Minutes Spent Total Time Spent with Patient: Total time spent is greater than 50% in coordination of care (as documented) at patient's floor/unit and/or counseling patient: Coding Level of Care Code 55694 INT INP/OBS CARE 3/75MIN Diagnoses Sepsis A41.9 Chronic venous stasis I87.8 Hypokalemia E87.6 Hypomagnesemia E83.42
[2024-12-14 21:00] LABS: Appearance Urine Clear (Clear); Bacteria Urine Automated None Seen (None Seen); Cast Urine Automated 0-2 /lpf (0-2); Epithelial Cell Urine Auto 0-2 /hpf (0-2); Glucose Urine UA Negative (Negative); RBC Urine Automated 0-2 /hpf (0-2); WBC Urine Automated 0-5 /hpf (0-5)
[2024-12-14] MEDS: LACTATED RINGER'S 1,000 ML IV ONE ×2 (21:14→23:15)
[2024-12-14] MEDS ORDERED: POLYETHYLENE (MIRALAX) 17 GM PACK PO PRN (22:51)
[2024-12-14] MEDS ORDERED: ONDANSETRON INJ 2 MG/ML 2 ML VIAL IV PRN (22:51)
[2024-12-14] MEDS: ACETAMINOPHEN 325 MG TAB PO PRN (23:15)
[2024-12-14] MEDS: MELATONIN 3 MG TAB PO PRN (23:16)
[2024-12-14] MEDS: ALBUT/IPRATROP 3MG/0.5MG NEB 3 ML VIAL NEB SCH (23:20)
[2024-12-15] MEDS: CEFEPIME 2000MG 2,000 MG/20 ML SYR IV SCH (02:22)
[2024-12-15 06:07] LABS: Hematocrit (blood only) 40.0 % (42.0-52.0); Hemoglobin 13.8 g/dl (14.0-18.0); Mean Corpuscular Hemoglobin 32.5 pg (25.0-34.0); Mean Corpuscular Volume 94.3 fL (80.0-100.0); Platelet Count 217 K/uL (130-400); RDW Standard Deviation 45.1 fL (36.4-46.3); Red Blood Count 4.24 M/uL (4.70-6.10); White Blood Count 19.69 K/ul (4.8-10.8)
[2024-12-15 06:25] LABS: Anion Gap 7.0 (3-11); Blood Urea Nitrogen 18.0 mg/dl (6-23); Calcium 9.1 mg/dl (8.6-10.3); Carbon Dioxide 28.0 mmol/L (21-32); Chloride 102.0 mmol/L (98-107); Creatinine Clr Calc Pharmacy 72.1 ml/min; Glucose 243.0 mg/dl (70-99(Fasting)); Magnesium 2.4 mg/dl (1.7-2.4); Potassium 3.6 mmol/L (3.5-5.1); Sodium 137.0 mmol/L (136-145)
[2024-12-15] MEDS: For Breztri~UMECLIDINIUM/VILANTEROL 62.5/25MCG 7 PUFFS/INHALER INH SCH (07:42)
[2024-12-15] MEDS: CETIRIZINE HCL 10 MG TABLET PO PRN (07:43)
[2024-12-15] MEDS: MAGNESIUM OXIDE 400 MG TAB PO SCH (07:44)
[2024-12-15] MEDS: For Breztri~FLUTICASONE FUROATE 200MCG 14 PUFFS/INHALER INH SCH (07:45)
[2024-12-15] MEDS: METOPROLOL SUCC 50MG EXT REL TAB PO SCH (07:49)
[2024-12-15] MEDS: POTASSIUM CHLORIDE 10 MEQ TABCR PO SCH (08:51)
[2024-12-15 08:53] LABS: A calco-baum cmplx NotReported Not Detected (NotDetected); Bact fragilis Not Reported Not Detected (NotDetected); Blood Culture Id Panel See PCR Comment (NotDetected); C auris Not Reported Not Detected (NotDetected); CTX-M Resistant Gene Not Detected (NotDetected); Calbicans Not Reported Not Detected (NotDetected); Candida glabrata Not Reported Not Detected (NotDetected); Candida krusei Not Reported Not Detected (NotDetected); Cneoformans/gatti Not Reported Not Detected (NotDetected); Cparapsilosis Not Reported Not Detected (NotDetected); Ctropicalis Not Reported Not Detected (NotDetected); E cloacae compx Not Reported Not Detected (NotDetected); Efaecalis Not Reported Not Detected (NotDetected); Efaecium Not Reported Not Detected (NotDetected); Enterobacterales Not Reported DETECTED (NotDetected); Escherichia coli Not Reported Not Detected (NotDetected); H influenzae Not Reported Not Detected (NotDetected); IMP Resistant Gene Not Detected (NotDetected); K aerogenes Not Reported Not Detected (NotDetected); KPC Resistant Gene Not Detected (NotDetected); Koxytoca Not Reported Not Detected (NotDetected); Kpneumoniae grp Not Reported Not Detected (NotDetected); Lmonocyt Not Reported Not Detected (NotDetected); N meningitidis Not Reported Not Detected (NotDetected); NDM Resistant Gene Not Detected (NotDetected); OXA 48 Like Resistant Gene Not Detected (NotDetected); P aeruginosa Not Reported Not Detected (NotDetected); Proteus spp Not Reported Not Detected (NotDetected); Salmonella spp Not Reported Not Detected (NotDetected); Staph lugdunensis Not Reported Not Detected (NotDetected); Staph spp. Not Reported Not Detected (NotDetected); Staphaureus Not Reported Not Detected (NotDetected); Staphepi Not Reported Not Detected (NotDetected); Stenmaltophilia Not Reported Not Detected (NotDetected); Strep agal(GrpB) Not Reported Not Detected (NotDetected); Strep pneum Not Reported Not Detected (NotDetected); Strep pyog (GrpA) Not Reported Not Detected (NotDetected); Strep spp Not Reported Not Detected (NotDetected); VIM Resistant Gene Not Detected (NotDetected)
[2024-12-15] MEDS: BEER 1 CAN PO SCH (08:56)
[2024-12-15 08:59] LABS: Enterobacterales DETECTED (NotDetected)
[2024-12-15] MEDS ORDERED: NON-FORMULARY MEDICATION (Budesonide-Glycopyr-Formoterol [Breztri Aerosphere] 160-9-4.8 mc INH SCH (09:00)
[2024-12-15] MEDS: ALBUTEROL HFA 8 GM INHALER INH PRN (12:02)
[2024-12-15] MEDS: NICOTINE 14 MG/24 HR PATCH TD SCH (12:52)
[2024-12-15] MEDS: ALBUT/IPRATROP 3MG/0.5MG NEB 3 ML VIAL ONE (13:46)
[2024-12-15] MEDS: ALBUT/IPRATROP 3MG/0.5MG NEB 3 ML VIAL NEB SCH (16:03)
--- NOTE | 2024-12-15 16:37 | Hospitalist Progress Note ---
Date of Service December 15, 2024 Assessment & Plan (1) Sepsis: Plan: Present on admission. Treat underlying infectious process. Supportive care (2) Acute exacerbation of chronic obstructive pulmonary disease (COPD): Plan: Parenteral steroid therapy. Scheduled nebulizer treatments. BiPAP was ordered on admission and will now be discontinued (3) Acute respiratory failure with hypoxia and hypercapnia: Plan: Treat underlying exacerbation of COPD. Supplemental oxygen to maintain saturation greater than 90% but avoid high oxygen saturations to avoid further CO2 retention (4) Gram-negative bacteremia: Plan: Continue cefepime, day 2. Await final identification and sensitivities. Likely source is from the right foot lesion. (5) Hypokalemia: Plan: Corrected with replacement therapy (6) Hypomagnesemia: Plan: Corrected with replacement therapy (7) Atrial fibrillation: Plan: Paroxysmal. Currently on Xarelto and metoprolol. Telemetry (8) ETOH abuse: Plan: The patient consumes multiple beers a day. He will be allowed beer intake to prevent withdrawal symptoms (9) Tobacco use: Plan: He currently smokes 2 to 3 packs of cigarettes a day. NicoDerm patch has been ordered Plan To be determined by clinical course Admission and Anticipated Discharge Date Admission Date: December 14, 2024 Subjective Alert and oriented. Unfortunately, his blood cultures are positive for gram- negative bacilli. He does have a past history of Serratia from chronic right foot wounds dating to April 15. He continues to have a right dorsal foot wound and bilateral pedal rubor probably from poor circulation and chronic venous insufficiency. He also has bilateral onychomycosis. Podiatry consultation has been requested. He has requested a nicotine patch due to his 2 to 3 pack/day smoking history. He is being allowed a beer consumption to prevent alcohol withdraw. He remains on intravenous Solu-Medrol and scheduled nebulizer treatments for the exacerbation of his COPD. He is currently on intravenous cefepime, day 2. Potassium has been corrected to 3.6. BNP was mildly elevated at 106 on admission. Review of Systems 2 Review of Systems: Constitutionalno fever or chills ENTno blurred vision, no double vision, no epistaxis, no sore throat Respiratoryshort of breath at rest. Nonproductive cough. Wheezing. Denies hemoptysis however Cardiacno palpitations, no chest pain, no syncope Mike nausea, vomiting, diarrhea, melena, hematochezia GUno urinary retention, no urinary incontinence, no dysuria, no hematuria Musculoskeletalno joint pain, no muscle tenderness Skinbilateral pedal rubor. Chronic superficial lesion of the right dorsal foot. Neurono isolated weakness, no paresthesia, no weakness Psychno depression, no anxiety Physical Exam 2 Physical Exam: General-alert and oriented x3, no fever, no chills HEENT-head atraumatic and normocephalic, pupils equal and reactive to light, extraocular muscles intact Neck-no lymphadenopathy or thyromegaly, trachea midline Chest-diminished breath sounds bilaterally. Midline rhonchi. Bilateral end expiratory wheezes. No inspiratory rales. Cardiac-mildly tachycardic rate. Regular rhythm. Normal S1 and S2 Abdomen-normal bowel sounds, no hepatosplenomegaly Extremities-bilateral pedal rubor and mild pedal edema. Superficial crusted lesion on the dorsal aspect of the right foot. Bilateral onychomycosis of all toenails. Neuro-cranial nerves II through XII intact, motor and sensory function within normal limits, strength symmetrical, no focal deficits Psych-normal affect, normal mood Results & Data Results & Data Vital Signs (Past 12 Hours) Vital Signs Temp Pulse Pulse Resp BP Pulse Ox O2 Del Method 12/15/24 14:10 97 H 12/15/24 13:47 95 H 23 94 Room Air 12/15/24 11:45 36.8 C 94 H 19 102/64 93 Room Air 12/15/24 10:32 76 12/15/24 09:29 99 H 20 95 Room Air 12/15/24 08:08 Room Air 12/15/24 07:48 36.7 C 102 H 20 114/70 95 Room Air 12/15/24 06:50 115 H 20 98 12/15/24 06:35 118 H 26 H 96 Room Air FiO2 12/15/24 14:10 12/15/24 13:47 12/15/24 11:45 12/15/24 10:32 12/15/24 09:29 12/15/24 08:08 12/15/24 07:48 12/15/24 06:50 30 12/15/24 06:35 Laboratory Results 12/15/24 05:35 12/15/24 05:35 PG Care Time/CCT Total # of Minutes Spent Total Time Spent with Patient: Total time spent is greater than 50% in coordination of care (as documented) at patient's floor/unit and/or counseling patient: Coding Level of Care Code 09138 SUB INP/OBS CARE 3/50MIN Diagnoses Sepsis A41.9 Acute exacerbation of chronic obstructive pulmonary disease (COPD) J44.1 Acute respiratory failure with hypoxia and hypercapnia J96.01; J96.02 Gram-negative bacteremia R78.81 Hypokalemia E87.6 Hypomagnesemia E83.42 Atrial fibrillation, unspecified type I48.91 Atrial fibrillation type: unspecified ETOH abuse F10.10 Tobacco use Z72.0 (7) Atrial fibrillation Atrial fibrillation type: unspecified Qualified Code(s): I48.91 - Unspecified atrial fibrillation
[2024-12-15] MEDS: RIVAROXABAN 10 MG TABLET PO SCH (20:49)
[2024-12-16 06:04] LABS: Hematocrit (blood only) 37.8 % (42.0-52.0); Hemoglobin 13.1 g/dl (14.0-18.0); Mean Corpuscular Hemoglobin 32.9 pg (25.0-34.0); Mean Corpuscular Volume 95.0 fL (80.0-100.0); Platelet Count 216 K/uL (130-400); RDW Standard Deviation 44.9 fL (36.4-46.3); Red Blood Count 3.98 M/uL (4.70-6.10); White Blood Count 18.48 K/ul (4.8-10.8)
[2024-12-16 06:27] LABS: Anion Gap 7.0 (3-11); Blood Urea Nitrogen 19.0 mg/dl (6-23); Calcium 9.4 mg/dl (8.6-10.3); Carbon Dioxide 27.0 mmol/L (21-32); Chloride 103.0 mmol/L (98-107); Creatinine Clr Calc Pharmacy 83.2 ml/min; Glucose 147.0 mg/dl (70-99(Fasting)); Potassium 3.5 mmol/L (3.5-5.1); Sodium 137.0 mmol/L (136-145)
[2024-12-16 06:38] LABS: Immature Granulocytes # (auto) 0.12 K/uL (0.01-0.20); Immature Granulocytes % (auto) 0.6 %
--- NOTE | 2024-12-16 08:46 | XRay Report ---
XR chest 1V portable CLINICAL HISTORY: exac COPD, resp failure COMPARISON STUDY: 12/14/2024 FINDINGS: Heart size and pulmonary vasculature are normal. No consolidation or pleural effusion seen. No pneumothorax. Stable mild scarring at the right upper lobe. IMPRESSION: No acute findings. ACT 112: Negative or not required by law. Electronically signed by: Theron Portillo M.D. 12/16/2024 8:44 AM
[2024-12-16] MEDS: REMOVE NICODERM PATCH SCH (09:47)
[2024-12-16] MEDS: POTASSIUM CHLORIDE 10 MEQ TABCR PO ONE (09:58)
[2024-12-16] MEDS: predniSONE 20 MG TAB PO SCH (10:38)
--- NOTE | 2024-12-16 11:03 | Podiatry Consultation ---
Date of Consultation December 16, 2024 Assessment & Plan (1) Other specified peripheral vascular diseases: (2) Chronic ulcer of right foot with fat layer exposed: (3) Cellulitis of right lower extremity: Plan Patient was examined and evaluated. We discussed at length etiology and treat ment of his right lower extremity infection and ulceration. This would benefit from some more aggressive wound care than what he has been providing. For now, we can continue with topical mupirocin and daily dressing changes, with Optifoam border gauze or similar. Radiographs and arterial ultrasounds were ordered. Further, he would benefit from an MRI to visualize if there is any underlying abscess or osteomyelitis, depending on the results of the plain film radiographs. Otherwise, his lower extremities seem more consistent with peripheral arterial disease than acute infectious concerns. We will plan on following up with him and plan for surgical debridement of the wound if he seems to have the vascular inflow to support this. Thank you for the consult, we are happy to help out whenever possible. History of Present Illness Reason for Consultation: Right foot wound Attending Physician: Shaji Howard MD History of Present Illness Patient seen at bedside. He states he has had this wound on the top of his right foot for most of the last 6 months. He has been treating it at home he states with initially Neosporin and now with some sort of liniment or salve. He is unsure what it is called. He states this is improved in size by roughly half over the last 6 months. Otherwise, he does not know how it began or if this is the source of his concerns. He is feeling well today, with no worsening signs o r symptoms of infection. He denies any recent medical history change but did present for follow-up with worsening systemic signs of infection. These have improved with antibiotics here on this admission. Allergies Allergy/AdvReac Type Severity Reaction Status Date / Time erythromycin base Allergy Intermediate hives or Verified 12/14/24 17:58 diarrhea Penicillins Allergy Intermediate hives or Verified 12/14/24 17:58 diarrhea NITRATES IN PROCESSED MEATS Allergy Severe Difficulty Uncoded 12/14/24 17:58 Breathing Home Medications Medication Instructions Recorded Confirmed Type cetirizine 10 mg tablet 10 mg PO DAILY PRN Allergy Symptoms 12/29/18 12/14/24 History multivitamin (Daily-Deanne tablet) 1 tab PO DAILY 07/20/20 12/14/24 History ibuprofen 200 mg capsule 400 mg PO Q6H PRN Pain 06/24/22 12/14/24 History magnesium 250 mg tablet 250 mg PO DAILY 09/16/22 12/14/24 History nebulizers #1 ea 12/23/22 04/18/24 Rx guaifenesin 600 mg tablet, 600 mg PO BID PRN congestion #60 01/28/23 12/14/24 Rx extended release 12 hr (Mucinex) tabs albuterol sulfate 1.25 mg/3 mL 1.25 mg (3 mL) inhalation QID PRN 03/31/23 12/14/24 Rx solution for nebulization shortness of breath or wheezing #360 mL potassium chloride 10 mEq 10 meq PO DAILY #90 tabs 06/08/24 12/14/24 Rx tablet,extended release (Klor-Con) rivaroxaban 10 mg tablet (Xarelto) 10 mg PO QPM #90 tabs 06/27/24 12/14/24 Rx furosemide 20 mg tablet (Lasix) 20 mg PO Q6H edema #120 tabs 10/18/24 12/14/24 Rx metoprolol succinate 50 mg 50 mg PO DAILY #90 tabs 10/19/24 12/14/24 Rx tablet,extended release 24 hr budesonide 160 mcg-glycopyr 9 2 inh inhalation BID #10.7 grams 10/25/24 12/14/24 Rx mcg-formot 4.8 mcg/actuation HFA inhaler (Breztri Aerosphere) bupropion HCl 150 mg tablet,12 hr 150 mg PO BID #60 ea 11/08/24 12/14/24 Rx sustained-release (Wellbutrin SR) albuterol sulfate 90 mcg/actuation 2 puff inhalation Q4H PRN 11/26/24 12/14/24 Rx aerosol inhaler (Ventolin HFA) Shortness Of Breath Or Wheezing #18 grams oxycodone-acetaminophen 10 mg-325 1 tab PO Q6H PRN pain #60 tabs 12/14/24 12/14/24 Rx mg tablet (Percocet) Patient History Medical History Back pain HX L2 FRACTURE>HEALED Leg cramps AT NIGHT Congestive heart failure Atrial fibrillation FOLLOWED BY [facility] COPD (chronic obstructive pulmonary disease) Surgical History History of total hip arthroplasty RT H/O abdominal surgery X 2 ? EXPLORATORY>CORYOBINNA, MARTITA, ABDOMINAL BENIGN MASS REMOVED A CHILD History of tonsillectomy History of tooth extraction Hx of appendectomy Family History Father Hairy cell leukemia Myocardial infarction Colorectal cancer Mother Multiple myeloma Other No family history of adverse response to anesthesia Denies family history of Ovarian cancer Prostate cancer Breast cancer Social History Smoking Status: Current every day smoker Tobacco Type: Cigarettes Age Started Using Tobacco: 16; packs per day: 1; Cigarettes Per Day: 30 CIG DAILY; Second Hand Exposure: Yes; Do You Dip or Chew Tobacco: No; Hx Alcohol Use: Yes Alcohol type: beer Alcohol Intake Frequency: 4 or More x per/Week Alcohol Intake Frequency Comment: 36-48 ounces of beer a day Hx Substance Use: No Preferred Language: Bolivian Communication Ability: Effective Claims Agent Right Of Way Required: No Beliefs That Will Affect Care: None marital status: marital status details: no children Current Living Situation: Spouse Current Living Situation Comment: lives in [place] by himself current occupational status: disabled other: 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 Feels Safe at Home: Yes Safety Concerns: Feels Safe At This Time caffeine: Yes Dental Care, Regularly: No Physical Activity Frequency: Does not Exercise Seatbelt Use: always Sunscreen Use: No Assistive Devices: Glasses and Wheelchair Review of Systems Review of Systems: All systems reviewed & are unremarkable except as noted in HPI & below Constitutional: + fever and + weakness; no chills and no fatigue Eyes: no problem reported Ear, Nose, Mouth, Throat: no problem reported Respiratory: + cough On breathing treatment currently with CPAP Cardiovascular: + edema; no problem reported Gastrointestinal: no nausea, no vomiting and no problem reported Musculoskeletal: no problem reported Integumentary: + skin ulcer, + wounds and + erythema Neurologic: + loss of sensation, + numbness and + pa resthesia; no generalized weakness Psychiatric: no problem reported Physical Exam Physical Exam: Lower extremity focused exam: DP/PT pulses nonpalpable. Advanced trophic changes noted to the bilateral lower extremity. No hair growth is noted and distal cooling is appreciated. There is advanced rubor to the bilateral lower extremity. The right foot has a small dorsal ulceration, measuring 2 cm x 1 cm with an uncertain depth. The wound bed does appear fibrotic with no evidence of necrosis. There is no active bleeding or drainage. The wound and foot overall are significantly dry. No ascending cellulitis, though again, the entire lower extremity distal to the mid tibia is erythematous and ruborous, consistent more with chronic arterial insufficiency rather than any concern for acute significant infection. Constitutional: WD/WN, vitals as above + ill appearing, average body habitus and + disheveled; no acute distress Eyes: PERRL, conjunctivae normal, anicteric sclerae ENMT: external ear and nose normal, oropharynx normal Mouth: + poor dentition Neck: trachea midline, no thyromegaly normal visual inspection Respiratory: normal respiratory effort; no respiratory distress Auscultation: + wheezes Currently on breathing treatment/CPAP Cardiovascular: Rate/Rhythm: regular rate and regular rhythm Vessels: + posterior tibial pulses abnormal and + dorsalis pedis pulses abnormal Extremities: normal capillary refill and + pedal edema Chest (Breasts): Chest: normal inspection of chest Gastrointestinal (Abdomen): Inspection/Auscultation: abdomen normal to inspection Percussion/Palpation: + abdomen tender and abdomen soft Musculoskeletal: no cyanosis or clubbing, extremities motor strength 5/5 Head/Neck/Chest: normocephalic and head atraumatic Extremities: extremities normal to inspection Skin: + skin atrophy, + erythema, + eschar, + nails discolored and + nails dystrophic Neurologic: awake; no focal motor deficits Psychiatric: A+Ox3, euthymic affect Results & Data Vital Signs (Past 12 Hours) Vital Signs Temp Pulse Pulse Resp BP Pulse Ox O2 Del Method 12/16/24 10:42 91 H 16 95 12/16/24 10:42 91 H 16 95 BiPAP 12/16/24 08:45 36.4 C L 101 H 20 104/62 93 Room Air 12/16/24 08:15 Nasal Cannula 12/16/24 07:38 95 H 22 95 Room Air 12/16/24 05:24 77 12/16/24 03:08 36.4 C L 85 20 97/59 L 90 Room Air 12/15/24 23:15 36.5 C 75 18 115/71 96 Room Air O2 Flow Rate FiO2 12/16/24 10:42 30 12/16/24 10:42 30 12/16/24 08:45 12/16/24 08:15 2 12/16/24 07:38 12/16/24 05:24 12/16/24 03:08 12/15/24 23:15
[2024-12-16] MEDS: MUPIROCIN 2% OINT 22 GM TUBE EXT SCH (11:50)
--- NOTE | 2024-12-16 12:20 | XRay Report ---
XR foot RT min 3V routine CLINICAL HISTORY: Right foot wound/infection COMPARISON: None FINDINGS: There is osteopenia. No fracture or dislocation seen. No evidence of osteomyelitis seen. N o radiopaque foreign body. IMPRESSION: No osteomyelitis seen. ACT 112: Negative or not required by law. Electronically signed by: Theron Portillo M.D. 12/16/2024 12:19 PM
--- NOTE | 2024-12-16 12:35 | Hospitalist Progress Note ---
Date of Service December 16, 2024 Assessment & Plan (1) Sepsis: Plan: Present on admission. Now resolved. Treat underlying infectious process. Supportive care (2) Acute exacerbation of chronic obstructive pulmonary disease (COPD): Plan: Much improved with parenteral steroid therapy and scheduled nebulizer treatments. BiPAP was ordered on admission and has been discontinued. Will switch parenteral steroid therapy to oral prednisone today, December 16. (3) Acute respiratory failure with hypoxia and hypercapnia: Plan: Now resolved. Oxygen saturation 98% on 2 L. He states he does not use oxygen at home. Treat underlying exacerbation of COPD. Supplemental oxygen to maintain saturation greater than 90% but avoid high oxygen saturations to avoid further CO2 retention (4) Cellulitis of right lower extremity: Plan: Chronic wound on the dorsum of the right foot is likely source of bacteremia. Podiatry consultation requested and pending. He also has dependent rubor of both feet with quite possibly bilateral lower extremity arterial insufficiency and chronic venous insufficiency. He is currently on cefepime, day 3. (5) Gram-negative bacteremia: Plan: Continue cefepime, day 3. Morganella isolated in the blood cultures on December 14. Will repeat blood cultures again today, December 16. Await sensitivities for conversion to oral therapy to complete a 2-week course. Likely source is from the right foot lesion. (6) Hypokalemia: Plan: Corrected with replacement therapy but potassium level is still on the low side and oral replacement therapy increased today, December 16 (7) Hypomagnesemia: Plan: Corrected with replacement therapy (8) Atrial fibrillation: Plan: Paroxysmal. Currently on Xarelto and metoprolol. Telemetry (9) ETOH abuse: Plan: The patient consumes multiple beers a day. He will be allowed beer intake to prevent withdrawal symptoms (10) Tobacco use: Plan: He currently smokes 2 to 3 packs of cigarettes a day. NicoDerm patch has been ordered Plan To be determined by clinical course Admission and Anticipated Discharge Date Admission Date: December 14, 2024 Subjective Much improved since admission. Alert and oriented without any respiratory distress at this time. Solu-Medrol has been switched to oral prednisone 40 mg daily. Chest x-ray was repeated today, December 16, and looks pretty good. Potassium is low at 3.5 and oral replacement uptitrated today. Cefepime day 3 for the Morganella isolated in the blood cultures obtained on December 14. Podiatry consultation requested and pending Review of Systems 2 Review of Systems: Constitutionalno fever or chills ENTno blurred vision, no double vision, no epistaxis, no sore throat Respiratoryshort of breath at rest. Nonproductive cough. Wheezing. Denies hemoptysis however Cardiacno palpitations, no chest pain, no syncope Mike nausea, vomiting, diarrhea, melena, hematochezia GUno urinary retention, no urinary incontinence, no dysuria, no hematuria Musculoskeletalno joint pain, no muscle tenderness Skinbilateral pedal rubor. Chronic superficial lesion of the right dorsal foot. Neurono isolated weakness, no paresthesia, no weakness Psychno depression, no anxiety Physical Exam 2 Physical Exam: General-alert and oriented x3, no fever, no chills HEENT-head atraumatic and normocephalic, pupils equal and reactive to light, extraocular muscles intact Neck-no lymphadenopathy or thyromegaly, trachea midline Chest-diminished breath sounds bilaterally. Midline rhonchi. Bilateral end expiratory wheezes. No inspiratory rales. Cardiac-mildly tachycardic rate. Regular rhythm. Normal S1 and S2 Abdomen-normal bowel sounds, no hepatosplenomegaly Extremities-bilateral pedal rubor and mild pedal edema. Superficial crusted lesion on the dorsal aspect of the right foot. Bilateral onychomycosis of all toenails. Neuro-cranial nerves II through XII intact, motor and sensory function within normal limits, strength symmetrical, no focal deficits Psych-normal affect, normal mood Results & Data Results & Data Vital Signs (Past 12 Hours) Vital Signs Temp Pulse Pulse Resp BP Pulse Ox O2 Del Method 12/16/24 12:22 36.4 C L 92 H 20 119/74 93 Room Air 12/16/24 10:42 91 H 16 95 12/16/24 10:42 91 H 16 95 BiPAP 12/16/24 08:45 36.4 C L 101 H 20 104/62 93 Room Air 12/16/24 08:15 Nasal Cannula 12/16/24 07:38 95 H 22 95 Room Air 12/16/24 05:24 77 12/16/24 03:08 36.4 C L 85 20 97/59 L 90 Room Air O2 Flow Rate FiO2 12/16/24 12:22 12/16/24 10:42 30 12/16/24 10:42 30 12/16/24 08:45 12/16/24 08:15 2 12/16/24 07:38 12/16/24 05:24 12/16/24 03:08 Laboratory Results 12/16/24 05:31 12/16/24 05:31 PG Care Time/CCT Total # of Minutes Spent Total Time Spent with Patient: Total time spent is greater than 50% in coordination of care (as documented) at patient's floor/unit and/or counseling patient: Coding Level of Care Code 33058 SUB INP/OBS CARE 3/50MIN Diagnoses Sepsis A41.9 Acute exacerbation of chronic obstructive pulmonary disease (COPD) J44.1 Acute respiratory failure with hypoxia and hypercapnia J96.01; J96.02 Cellulitis of right lower extremity L03.115 Gram-negative bacteremia R78.81 Hypokalemia E87.6 Hypomagnesemia E83.42 Atrial fibrillation, unspecified type I48.91 Atrial fibrillation type: unspecified ETOH abuse F10.10 Tobacco use Z72.0 (8) Atrial fibrillation Atrial fibrillation type: unspecified Qualified Code(s): I48.91 - Unspecified atrial fibrillation
--- NOTE | 2024-12-16 15:08 | Ultrasound Report ---
Exam: Duplex ultrasound of bilateral lower extremity arteries Clinical information: PAD. Right lower extremity wound and pain Comparison: None Technique: Grayscale (B-mode), color Doppler, and duplex spectral Doppler ultrasound of the lower extremity arteries. Velocity measurements obtained with angle correction of 60 degrees or less. Findings: Right lower extremity: Diffuse monophasic waveforms, which are poststenotic, suggesting proximal, aortoiliac disease. The right common femoral artery waveform demonstrates a fairly sharp systolic upstroke, otherwise distally, the remainder of the systolic upstrokes appear blunted. Throughout the right femoral artery, there are very low velocities as well, for example at the proximal femoral artery it measures 7 cm/sec, with essentially no systolic upstroke, in the mid femoral artery measures 12 cm/sec. The distal right femoral artery measures 23 cm/sec. A segment of the distal right femoral artery demonstrates an elevated waveform of 144 cm/sec suggesting an area of possibly just under 50% stenosis. A portion of the proximal right peroneal artery does not appear to demonstrate flow, and may be occluded for short segment. Remainder of the peroneal artery is patent. The anterior tibial, posterior tibial, and dorsalis pedis arteries are patent, with monophasic waveforms and without elevated velocity. Right REG: 0.65 Abnormal PVR waveform. Left lower extremity: Diffuse monophasic waveforms, which are poststenotic, suggesting proximal, aortoiliac disease. The left common femoral artery waveform demonstrates a a sharp systolic upstroke, and the left profundofemoral and proximal femoral arteries also demonstrate a short systolic upstroke. Additionally the proximal femoral artery demonstrates a significantly elevated waveform at 307 cm/sec, indicating over 75% focal stenosis. The remainder of the left femoral artery and the popliteal artery waveforms are not abnormally elevated or suppressed, and are monophasic, poststenotic. The trivessel lower extremity arteries, are patent, with monophasic waveforms, without elevated velocity. Left REG: 0.72. Abnormal PVR waveform. Impression: 1. Right leg: Diffuse monophasic, poststenotic waveforms, beginning proximally. There is also a focally elevated velocity of 144 cm/sec at the distal right femoral artery, suggesting an area of possibly just under 50% stenosis. Several of the waveforms in the right femoral artery also demonstrate very low velocities suggesting diminished flow. A portion of the proximal right peroneal artery is likely occluded with reconstitution. Low REG at 0.65. REG <0.70: ~20% chance of a cardiac event in 5 years 2. Left leg: Diffuse monophasic, poststenotic waveforms, beginning proximally. There is also an area of very high velocity at the proximal femoral artery of 307 cm/sec suggesting over 75% stenosis. The distal left lower extremity arteries are otherwise patent. Low REG at 0.72. Guidelines: [facility] duplex criteria for lower limb arterial occlusive disease Percent stenosis: Normal (1-19%): Peak systolic velocity (cm/s): <150, End-diastolic velocity (cm/s): <40, Velocity ratio (Vr): <1.5, Distal arterial waveform: Triphasic 20-49%: Peak systolic velocity (cm/s): 150-200, End-diastolic velocity (cm/s): <40, Velocity ratio (Vr): 1.5-2.0, Distal arterial waveform: Triphasic 50-75%: Peak systolic velocity (cm/s): 200-300, End-diastolic velocity (cm/s): <90, Velocity ratio (Vr): 2.0-3.9, Distal arterial waveform: Poststenotic turbulence distal to stenosis, monophasic distal waveform >75%: Peak systolic velocity (cm/s): >300, End-diastolic velocity (cm/s): <90, Velocity ratio (Vr): >4.0, Distal arterial waveform: Dampened distal waveform and low PSV/EDV* in the stenosis Occlusion: Absent flow by color Doppler/pulsed Doppler spectral analysis; length of occlusion estimated from distance between exit and reentry collateral arteries *PSV = peak systolic velocity, EDV = end-diastolic velocity [email or web address] Electronically signed by Hayes Zamudio 12-16-2024 3:07 PM
[2024-12-16] MEDS: ALUMINUM/MAGNESIUM SUSP 30 ML UDC PO PRN (19:22)
[2024-12-17 06:21] LABS: Hematocrit (blood only) 37.8 % (42.0-52.0); Hemoglobin 12.8 g/dl (14.0-18.0); Mean Corpuscular Hemoglobin 32.6 pg (25.0-34.0); Mean Corpuscular Volume 96.2 fL (80.0-100.0); Platelet Count 230 K/uL (130-400); RDW Standard Deviation 45.3 fL (36.4-46.3); Red Blood Count 3.93 M/uL (4.70-6.10); White Blood Count 16.31 K/ul (4.8-10.8)
[2024-12-17 06:42] LABS: Anion Gap 5.0 (3-11); Blood Urea Nitrogen 18.0 mg/dl (6-23); Calcium 9.3 mg/dl (8.6-10.3); Carbon Dioxide 29.0 mmol/L (21-32); Chloride 105.0 mmol/L (98-107); Creatinine Clr Calc Pharmacy 80.3 ml/min; Glucose 112.0 mg/dl (70-99(Fasting)); Potassium 4.1 mmol/L (3.5-5.1); Sodium 139.0 mmol/L (136-145)
[2024-12-17 06:47] LABS: Immature Granulocytes # (auto) 0.11 K/uL (0.01-0.20); Immature Granulocytes % (auto) 0.7 %
[2024-12-17] MEDS: POTASSIUM CHLORIDE CRTAB 20 MEQ TABCR PO SCH (08:54)
--- NOTE | 2024-12-17 11:38 | Podiatry Progress Note ---
Date of Service December 17, 2024 Assessment & Plan (1) Other specified peripheral vascular diseases: (2) Chronic ulcer of right foot with fat layer exposed: (3) Cellulitis of right lower extremity: Plan Patient was examined and evaluated. - His arterial ultrasound shows evidence of significant arterial insufficiency. This is consistent with both his clinical exam of his foot and this dorsal wound specifically. - He would benefit from a vascular consult, given these exam findings. - Until then, consider continued conservative wound care as surgical intervention is not warranted, with no suggestion of deeper infection to the foot. - Continue with mupirocin and bandage BID. - Will continue to follow, but no surgery planned. Admission and Anticipated Discharge Date Admission Date: December 14, 2024 Subjective Patient seen at bedside. He is feeling better today and had arterial ultrasound performed yesterday. Otherwise, he has been resting well. He is receiving another breathing treatment at this time. Still, comfortable and able to communicate. Review of Systems Constitutional: + fever and + weakness; no chills and no fatigue Eyes: no problem reported Ear, Nose, Mouth, Throat: no problem reported Respiratory: + cough On breathing treatment currently with CPAP Cardiovascular: + edema; no problem reported Gastrointestinal: no nausea, no vomiting and no problem reported Musculoskeletal: no problem reported Integumentary: + skin ulcer, + wounds and + erythema Neurologic: + loss of sensation, + numbness and + pa resthesia; no generalized weakness Psychiatric: no problem reported Physical Exam Physical Exam: Lower extremity focused exam: DP/PT pulses nonpalpable. Advanced trophic changes noted to the bilateral lower extremity. No hair growth is noted and distal cooling is appreciated. There is advanced rubor to the bilateral lower extremity. The right foot has a small dorsal ulceration, measuring 2 cm x 1 cm with an uncertain depth. The wound bed does appear fibrotic with no evidence of necrosis. There is no active bleeding or drainage. The wound and foot overall are significantly dry. No ascending cellulitis, though again, the entire lower extremity distal to the mid tibia is erythematous and ruborous, consistent more with chronic arterial insufficiency rather than any concern for acute significant infection. Constitutional: WD/WN, vitals as above + ill appearing, average body habitus and + disheveled; no acute distress Eyes: PERRL, conjunctivae normal, anicteric sclerae ENMT: external ear and nose normal, oropharynx normal Mouth: + poor dentition Neck: trachea midline, no thyromegaly normal visual inspection Respiratory: normal respiratory effort; no respiratory distress Auscultation: + wheezes Cardiovascular: Rate/Rhythm: regular rate and regular rhythm Vessels: + posterior tibial pulses abnormal and + dorsalis pedis pulses abnormal Extremities: normal capillary refill and + pedal edema Chest (Breasts): Chest: normal inspection of chest Gastrointestinal (Abdomen): Inspection/Auscultation: abdomen normal to inspection Percussion/Palpation: + abdomen tender and abdomen soft Musculoskeletal: no cyanosis or clubbing, extremities motor strength 5/5 Head/Neck/Chest: normocephalic and head atraumatic Extremities: extremities normal to inspection Skin: + skin atrophy, + erythema, + eschar, + nails discolored and + nails dystrophic Neurologic: awake; no focal motor deficits Psychiatric: A+Ox3, euthymic affect Results & Data Results & Data Vital Signs (Past 12 Hours) Vital Signs Temp Pulse Pulse Resp BP Pulse Ox O2 Del Method 12/17/24 10:33 89 20 93 Room Air 12/17/24 08:00 Room Air 12/17/24 08:00 64 12/17/24 07:37 36.7 C 88 24 119/78 92 Room Air 12/17/24 07:01 79 20 92 Room Air 12/17/24 04:48 36.5 C 67 20 111/75 92 Room Air 12/17/24 00:13 36.5 C 91 H 20 133/85 90 Room Air
--- NOTE | 2024-12-17 12:26 | Hospitalist Progress Note ---
Date of Service December 17, 2024 Assessment & Plan (1) Sepsis: (2) Acute exacerbation of chronic obstructive pulmonary disease (COPD): (3) Acute respiratory failure with hypoxia and hypercapnia: (4) Cellulitis of right lower extremity: (5) Gram-negative bacteremia: (6) Hypokalemia: (7) Hypomagnesemia: (8) Atrial fibrillation: (9) ETOH abuse: (10) Tobacco use: Plan 64 y/o man admitted with sepsis due to cellulitis of right foot, longstanding chronic wound on dorsum of right foot and right heel wound, acute exacerbation of COPD # RLE diabetic foot infection - cellulitis and wounds POA. # sepsis POA has resolved -remains martha. continue cefepime and add metronidazole -podiatry consulting - reviewed recs in note, no surgery planned at this time -reviewed foot Xray - unrevealing. Ordered MRI R foot - reviewed - cellulitis. no abscess or osteomyelitis #Morganella bacteremia - source R foot wounds -continue cefepime, can complete oral cefuroxime or cefpodoxime total 14d -follow up repeat blood cultures for clearance #PAD -reviewed arterial duplex of yesterday. >75% stenosis left prox fem aa, disease also present on the R -vascular surgery consult #severe COPD in acute exacerbation - FEV1 of 18% per pulmonary note in 2022. CTPA on admission no PE, OGD both apices, emphysema, bibasilar scarring R>L #Acute respiratory failure with hypoxia and hypercarbia -wheezy and tight this AM, currently on bipap which is helping -continue Bipap prn. does not use cpap/bipap at home -continue prednisone 40 mg daily, continue bronchodilators #Cardiomyopathy consider trial of diuresis - Hx chronic systolic HF in the past with recovered EF. BNP only 105 on admission but is on lasix at home for edema. Last TTE 2020 normal LVEF but previously EF 30-35% in 2019 reviewed last cards note [address] 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 Metoprolol was continued. DSE was planned but was not done. #Paroxysmal Afib -continue metoprolol and xarelto, rate controlled -his dose of xarelto is half usual, however, he has done well on this assisted so will leave it alone #Alcohol use disorder - does not wish to stop - continue beers to prevent withdrawal #Tobacco smoking and nicotine dependence - continue nicotine patch #Hypokalemia, hypomagnesemia - replaced. K 4.1 today DVT ppx - on low dose xarelto Admission and Anticipated Discharge Date Admission Date: December 14, 2024 Subjective short of breath this AM improved on bipap currently Physical Exam 2 Physical Exam: Last 24h vitals reviewed GEN: no acute distress, sitting in bed HEENT: pupils equal, sclerae anicteric, moist MM RESP: increased WOB, tight with deven exp wheeze CV: reg no mrg ABD: soft/nt/nd +BT : no cope SKIN: warm and dry, no generalized rashes EXT: RLE is warm and martha from high ankle down to toes. Wound on heel and forefoot covered with eschar or exudate unstageable LLE is purplish and cool. Dark 2cm bulla on R great toe. No other wounds NEURO: AOx person, place, and situation. Face symmetric, speech normal, moves 4 ext spontaneously and equally Results & Data Results & Data Vital Signs (Past 12 Hours) Vital Signs Temp Pulse Pulse Resp BP BP Pulse Ox 12/17/24 11:45 36.3 C L 92 H 24 120/78 92 12/17/24 10:33 89 20 93 12/17/24 08:00 12/17/24 08:00 64 12/17/24 07:37 36.7 C 88 24 119/78 92 12/17/24 07:01 79 20 92 12/17/24 04:48 36.5 C 67 20 111/75 92 O2 Del Method 12/17/24 11:45 Room Air 12/17/24 10:33 Room Air 12/17/24 08:00 Room Air 12/17/24 08:00 12/17/24 07:37 Room Air 12/17/24 07:01 Room Air 12/17/24 04:48 Room Air Laboratory Results 12/17/24 05:51 12/17/24 05:51 PG Care Time/CCT Total # of Minutes Spent Total Time Spent with Patient: Total time spent is greater than 50% in coordination of care (as documented) at patient's floor/unit and/or counseling patient: Coding Level of Care Code 75219 SUB INP/OBS CARE 3/50MIN Diagnoses Sepsis A41.9 Acute exacerbation of chronic obstructive pulmonary disease (COPD) J44.1 Acute respiratory failure with hypoxia and hypercapnia J96.01; J96.02 Cellulitis of right lower extremity L03.115 Gram-negative bacteremia R78.81 Hypokalemia E87.6 Hypomagnesemia E83.42 Atrial fibrillation, unspecified type I48.91 Atrial fibrillation type: unspecified ETOH abuse F10.10 Tobacco use Z72.0 (8) Atrial fibrillation Atrial fibrillation type: unspecified Qualified Code(s): I48.91 - Unspecified atrial fibrillation
[2024-12-17] MEDS: FAMOTIDINE 20 MG TAB PO SCH (12:52)
[2024-12-17] MEDS: metroNIDAZOLE 500 MG/100 ML BAG IV SCH (12:52)
[2024-12-17] MEDS: ALUMINUM/MAGNESIUM SUSP 30 ML UDC PO STA (12:52)
--- NOTE | 2024-12-17 15:08 | Magnetic Resonance Report ---
MRI OF THE RIGHT FOOT WITHOUT CONTRAST CLINICAL HISTORY: Diabetic foot wounds, infection, possible osteomyelitis. COMPARISON STUDY: Right foot radiographs December 16, 2022. TECHNIQUE: Utilizing a 3 Sharon magnet and dedicated coil, multiplanar, multiecho imaging of the right midfoot and forefoot was performed without intravenous contrast. FINDINGS: There is mild motion artifact. A dorsal midfoot skin defect consistent with wound is presen t. No associated fluid collection is identified on unenhanced exam to suggest an abscess. There is mo derate subcutaneous fluid suggestive of cellulitis. Alignment of the right midfoot and forefoot is an atomic. Lisfranc ligament is intact. No areas of marrow edema are identified within the right midfoot or forefoot. T1 marrow signal is preserved. There are no fractures. No bony erosion is evident. IMPRESSION: 1. Dorsal right midfoot wound. No abscess. Adjacent subcutaneous edema consistent with cellulitis. 2. No evidence for acute osteomyelitis within the right midfoot or forefoot. ACT 112: Negative or not required by law. Electronically signed by: Randolph Arredondo M.D. 12/17/2024 3:05 PM
[2024-12-17] MEDS: ALBUT/IPRATROP 3MG/0.5MG NEB 3 ML VIAL NEB PRN (21:59)
--- NOTE | 2024-12-17 22:58 | Electrocardiogram Report ---
Test Reason : Blood Pressure : */* mmHG Vent. Rate : 143 BPM Atrial Rate : * BPM P-R Int : * ms QRS Dur : 78 ms QT Int : 336 ms P-R-T Axes : * 76 86 degrees QTcB Int : [address] depression, consider subendocardial injury Prolonged QT Abnormal ECG When compared with ECG of 16-Sep-2022 13:28, Vent. rate has increased by [address] now depressed in Anterior leads T wave inversion now evident in Inferior leads Reconfirmed by Arnulfo Driscoll ([id number]) on 12/17/2024 10:58:18 PM Referred By: REFERRED SELF Confirmed By: Arnulfo Driscoll
[2024-12-18 06:23] LABS: Anion Gap 4.0 (3-11); Calcium 9.4 mg/dl (8.6-10.3); Carbon Dioxide 29.0 mmol/L (21-32); Chloride 106.0 mmol/L (98-107); Potassium 4.9 mmol/L (3.5-5.1); Sodium 139.0 mmol/L (136-145)
[2024-12-18 06:25] LABS: Hematocrit (blood only) 39.5 % (42.0-52.0); Hemoglobin 13.3 g/dl (14.0-18.0); Immature Granulocytes # (auto) 0.14 K/uL (0.01-0.20); Immature Granulocytes % (auto) 1.3 %; Mean Corpuscular Hemoglobin 32.8 pg (25.0-34.0); Mean Corpuscular Volume 97.5 fL (80.0-100.0); Platelet Count 245 K/uL (130-400); RDW Standard Deviation 46.1 fL (36.4-46.3); Red Blood Count 4.05 M/uL (4.70-6.10); White Blood Count 10.70 K/ul (4.8-10.8)
[2024-12-18 06:28] LABS: Blood Urea Nitrogen 22.0 mg/dl (6-23); Creatinine Clr Calc Pharmacy 83.2 ml/min; Glucose 82.0 mg/dl (70-99(Fasting))
[2024-12-18] MEDS: FUROSEMIDE 40 MG/4 ML VIAL IV ONE (12:27)
--- NOTE | 2024-12-18 15:22 | Podiatry Progress Note ---
Date of Service December 18, 2024 Assessment & Plan (1) Other specified peripheral vascular diseases: (2) Chronic ulcer of right foot with fat layer exposed: (3) Cellulitis of right lower extremity: Plan Patient was examined and evaluated. - His arterial ultrasound shows evidence of significant arterial insufficiency. This is consistent with both his clinical exam of his foot and this dorsal wound specifically. - He would benefit from a vascular consult, given these exam findings. - Until then, consider continued conservative wound care as surgical intervention is not warranted, with no suggestion of deeper infection to the foot. - Given arterial insufficiency and chronicity of wound, will switch to Santyl daily with Optifoam - We will sign off for now with no further plans. If he develops any significant changes with Santyl while inpatient or if he has revascularization and requires our input again, will be happy to be reconsulted. Admission and Anticipated Discharge Date Admission Date: December 14, 2024 Subjective Patient seen at bedside. Denies any current pain to the foot. Reports he would get blood blisters all the time on his feet, and he did not realize that he had a new blood blister on his left great toe. Denies any fever or chills. Review of Systems Constitutional: + fever and + weakness; no chills and no fatigue Eyes: no problem reported Ear, Nose, Mouth, Throat: no problem reported Respiratory: + cough On breathing treatment currently with CPAP Cardiovascular: + edema; no problem reported Gastrointestinal: no nausea, no vomiting and no problem reported Musculoskeletal: no problem reported Integumentary: + skin ulcer, + wounds and + erythema Neurologic: + loss of sensation, + numbness and + pa resthesia; no generalized weakness Psychiatric: no problem reported Physical Exam Physical Exam: Lower extremity focused exam: DP/PT pulses nonpalpable. Advanced trophic changes noted to the bilateral lower extremity. No hair growth is noted and distal cooling is appreciated. There is advanced rubor to the bilateral lower extremity. The right foot has a small dorsal ulceration, measuring 2 cm x 1 cm with an uncertain depth. The wound bed does appear fibrotic with no evidence of necrosis. There is no active bleeding or drainage. The wound and foot overall are significantly dry. No ascending cellulitis, though again, the entire lower extremity distal to the mid tibia is erythematous and ruborous, consistent more with chronic arterial insufficiency rather than any concern for acute significant infection. Blood blister noted to left medial hallux. Constitutional: WD/WN, vitals as above + ill appearing, average body habitus and + disheveled; no acute distress Eyes: PERRL, conjunctivae normal, anicteric sclerae ENMT: external ear and nose normal, oropharynx normal Mouth: + poor dentition Neck: trachea midline, no thyromegaly normal visual inspection Respiratory: normal respiratory effort; no respiratory distress Auscultation: + wheezes Cardiovascular: Rate/Rhythm: regular rate and regular rhythm Vessels: + posterior tibial pulses abnormal and + dorsalis pedis pulses abnormal Extremities: normal capillary refill and + pedal edema Chest (Breasts): Chest: normal inspection of chest Gastrointestinal (Abdomen): Inspection/Auscultation: abdomen normal to inspection Percussion/Palpation: + abdomen tender and abdomen soft Musculoskeletal: no cyanosis or clubbing, extremities motor strength 5/5 Head/Neck/Chest: normocephalic and head atraumatic Extremities: extremities n ormal to inspection Skin: + skin atrophy, + erythema, + eschar, + nails discolored and + nails dystrophic Neurologic: awake; no focal motor deficits Psychiatric: A+Ox3, euthymic affect Results & Data Results & Data Vital Signs (Past 12 Hours) Vital Signs Temp Pulse Pulse Resp BP Pulse Ox O2 Del Method 12/18/24 14:00 101 H 12/18/24 12:04 88 17 95 Room Air 12/18/24 11:55 36.7 C 80 22 129/81 93 Room Air 12/18/24 08:00 Room Air 12/18/24 07:50 36.5 C 78 18 112/70 94 Room Air 12/18/24 07:16 74 12/18/24 07:03 81 16 96 Room Air 12/18/24 04:47 79 12/18/24 04:00 36.4 C L 77 18 111/64 94 Room Air Diagnostic Findings MRI right foot: Dorsal right midfoot wound. No abscess. Adjacent subcutaneous edema consistent with cellulitis. No evidence for acute osteomyelitis within the right midfoot or forefoot.
--- NOTE | 2024-12-18 16:12 | XCELERA ---
[id number]
--- NOTE | 2024-12-18 17:41 | Hospitalist Progress Note ---
Date of Service December 18, 2024 Assessment & Plan (1) Sepsis: (2) Acute exacerbation of chronic obstructive pulmonary disease (COPD): (3) Acute respiratory failure with hypoxia and hypercapnia: (4) Cellulitis of right lower extremity: (5) Gram-negative bacteremia: (6) Hypokalemia: (7) Hypomagnesemia: (8) Atrial fibrillation: (9) ETOH abuse: (10) Tobacco use: Plan 64 y/o man admitted with sepsis due to cellulitis of right foot, longstanding chronic wound on dorsum of right foot and right heel wound, acute exacerbation of COPD # RLE diabetic foot infection - cellulitis and wounds POA. # sepsis POA has resolved -remains martha. continue cefepime and added metronidazole - WBC improved to 10K, afebrile, appearance of RLE slightly better -podiatry consulting - reviewed recs in note 12/18, no surgery planned at this time -reviewed foot Xray - unrevealing. Ordered MRI R foot - reviewed - cellulitis. no abscess or osteomyelitis -AM CBC #Morganella bacteremia - source R foot wounds -continue cefepime, can complete oral cefuroxime or cefpodoxime total 14d -follow up repeat blood cultures for clearance - NGTD #PAD -reviewed arterial duplex >75% stenosis left prox fem aa, disease also present on the R -vascular surgery consulted Dr. Worley -L foot is ischemic but chronically so, R foot wounds and healing also impeded by PAD #severe COPD in acute exacerbation - FEV1 of 18% per pulmonary note in 2022. CTPA on admission no PE, OGD both apices, emphysema, bibasilar scarring R>L #Acute respiratory failure with hypoxia and hypercarbia -remains wheezy and tight slightly better than yesterday -continue Bipap prn. does not use cpap/bipap at home -continue prednisone 40 mg daily, continue bronchodilators #Cardiomyopathy Hx chronic systolic HF in the past with recovered EF. BNP only 105 on admission but is on lasix at home for edema. Last TTE 2020 normal LVEF but previously EF 30-35% in 2019 reviewed last cards note [address] 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 Metoprolol was continued. DSE was planned but was not done. -gave empiric dose of lasix 40 mg IV this am -obtained TTE reviewed - EF 60-65% poor study but no gross rwma's or valvular disease present, normal CVP based on IVC -AM BMP #Paroxysmal Afib -continue metoprolol and xarelto, rate controlled -his dose of xarelto is half usual, however, he has done well on this usp so will leave it alone #Alcohol use disorder - does not wish to stop - continue beers to prevent withdrawal #Tobacco smoking and nicotine dependence - continue nicotine patch #Hypokalemia, hypomagnesemia - replaced. K 4.9 today DVT ppx - on low dose xarelto Admission and Anticipated Discharge Date Admission Date: December 14, 2024 Subjective Short of breath but better than yesterday Usually takes po lasix 4x a day and says it helps his breathing No change in R foot redness L foot is cyanotic today but not painful and he says it is frequently like that Physical Exam 2 Physical Exam: Last 24h vitals reviewed GEN: no acute distress, sitting in bed HEENT: pupils equal, sclerae anicteric, moist MM RESP: increased WOB, bilateral basilar exp wheezing, remains tight with diminished throughout - slightly better CV: reg no mrg ABD: soft/nt/nd +BT : no cpoe SKIN: warm and dry, no generalized rashes EXT: RLE is warm and martha from high ankle down to toes - more or less unchanged. Wound on heel and forefoot covered with eschar or exudate unstageable L foot is purplish and cold. Dark 2cm bulla on R great toe. No other wounds NEURO: AOx person, place, and situation. Face symmetric, speech normal, moves 4 ext spontaneously and equally Results & Data Results & Data Vital Signs (Past 12 Hours) Vital Signs Temp Pulse Pulse Resp BP Pulse Ox O2 Del Method 12/18/24 16:26 36.5 C 86 20 117/75 95 Room Air 12/18/24 15:29 84 18 92 Room Air 12/18/24 14:00 101 H 12/18/24 12:04 88 17 95 Room Air 12/18/24 11:55 36.7 C 80 22 129/81 93 Room Air 12/18/24 08:00 Room Air 12/18/24 07:50 36.5 C 78 18 112/70 94 Room Air 12/18/24 07:16 74 12/18/24 07:03 81 16 96 Room Air Laboratory Results 12/18/24 05:37 12/18/24 05:37 PG Care Time/CCT Total # of Minutes Spent Total Time Spent with Patient: Total time spent is greater than 50% in coordination of care (as documented) at patient's floor/unit and/or counseling patient: Coding Level of Care Code 98765 SUB INP/OBS CARE 3/50MIN Diagnoses Sepsis A41.9 Acute exacerbation of chronic obstructive pulmonary disease (COPD) J44.1 Acute respiratory failure with hypoxia and hypercapnia J96.01; J96.02 Cellulitis of right lower extremity L03.115 Gram-negative bacteremia R78.81 Hypokalemia E87.6 Hypomagnesemia E83.42 Atrial fibrillation, unspecified type I48.91 Atrial fibrillation type: unspecified ETOH abuse F10.10 Tobacco use Z72.0 (8) Atrial fibrillation Atrial fibrillation type: unspecified Qualified Code(s): I48.91 - Unspecified atrial fibrillation
[2024-12-19 06:07] LABS: Hematocrit (blood only) 39.2 % (42.0-52.0); Hemoglobin 13.2 g/dl (14.0-18.0); Mean Corpuscular Hemoglobin 32.8 pg (25.0-34.0); Mean Corpuscular Volume 97.5 fL (80.0-100.0); Platelet Count 256 K/uL (130-400); RDW Standard Deviation 45.9 fL (36.4-46.3); Red Blood Count 4.02 M/uL (4.70-6.10); White Blood Count 9.54 K/ul (4.8-10.8)
[2024-12-19 06:26] LABS: Anion Gap 4.0 (3-11); Blood Urea Nitrogen 21.0 mg/dl (6-23); Calcium 9.0 mg/dl (8.6-10.3); Carbon Dioxide 30.0 mmol/L (21-32); Chloride 106.0 mmol/L (98-107); Creatinine Clr Calc Pharmacy 83.2 ml/min; Glucose 87.0 mg/dl (70-99(Fasting)); Potassium 4.3 mmol/L (3.5-5.1); Sodium 140.0 mmol/L (136-145)
[2024-12-19] MEDS: COLLAGENASE OINT 30 GM TUBE EXT SCH (09:05)
--- NOTE | 2024-12-19 10:59 | Hospitalist Progress Note ---
Date of Service December 19, 2024 Assessment & Plan (1) Gram-negative bacteremia: Plan: Morganella bacteremia - source R foot wounds -continue cefepime, can complete oral cefuroxime or cefpodoxime total 14d (2) PAD (peripheral artery disease): Plan: -reviewed arterial duplex >75% stenosis left prox fem aa, disease also present on the R -vascular surgery consulted Dr. Brunilda Argueta foot is ischemic but chronically so, R foot wounds and healing also impeded by PAD (3) Acute exacerbation of chronic obstructive pulmonary disease (COPD): Plan: continue Bipap prn. does not use cpap/bipap at home -continue prednisone 40 mg daily, continue bronchodilators (4) Atrial fibrillation: Plan: -continue metoprolol and xarelto, rate controlled (5) ETOH abuse: Plan: does not wish to stop - continue beers to prevent withdrawal Plan 64 y/o man admitted with sepsis due to cellulitis of right foot, longstanding chronic wound on dorsum of right foot and right heel wound, acute exacerbation of COPD Admission and Anticipated Discharge Date Admission Date: December 14, 2024 Subjective Pt stating he did not like the way he felt after his inhaler this am. Review of Systems Review of Systems: CONST: Negative for fever, body aches and chills. HENT: Negative for neck pain/stiffness, headache, congestion, sore throat, swelling. EYES: Negative for discharge/pain or vision changes. RESP: Negative for cough/hemoptysis and shortness of breath. CV: Negative chest pain, difficulty breathing, palpitations. ABD: Negative pain, nausea, vomiting. : Negative increase frequency, dysuria, blood in urine or stool. MUSC: Negative for muscle aches, edema. SKIN: Negative rash, lesions/sores. NEURO: Negative headache, dizziness, weakness. Physical Exam Physical Exam: GENERAL APPEARANCE NAD, activity normal for age, well developed/ well nourished, no cyanosis, pallor, or diaphoresis. EYES lids/conjunctiva normal. EARS/NOSE/THROAT Mucous membranes moist, nares normal, lips/teeth normal uvula midline without oral pharyngeal erythema, exudate or swelling TMs normal bilaterally. No lymphangitis/lymphedema. HEAD/NECK normocephalic atraumatic, no facial trauma, neck is supple. RESPIRATORY respiratory effort normal, speaks in full sentences, no tripod position, no accessory muscle use. Lungs clear to auscultation without rhonchi, wheezes, rales CARDIAC Regular rate and rhythm, no edema. ABDOMINAL Soft, ND/NT. No evidence of fluid wave. No pulsatile masses on exam, rebound tenderness, Campbell sign or pain over Mcburney's point. MUSCLES/EXTREMITIES No abnormal range of motion, no swelling. Right dorsal foot ulcer. SKIN Warm, pink and dry. No rashes, dermatoses, petechiae or lesions. NEUROLOGICAL Speech is clear and appropriate. Normal level of consciousness. Gait and coordination are normal. 5/5 strength in all extremities. PSYCH Normal mood and affect. Judgement/competence is appropriate Results & Data Results & Data Vital Signs (Past 12 Hours) Vital Signs Temp Pulse Resp BP Pulse Ox O2 Del Method 12/19/24 07:43 36.7 C 75 18 121/77 95 Room Air 12/19/24 07:13 78 18 95 Room Air 12/19/24 02:49 36.6 C 77 16 120/72 95 Room Air 12/18/24 23:28 36.6 C 81 18 121/76 94 Room Air PG Care Time/CCT Total # of Minutes Spent Total Time Spent with Patient: Total time spent is greater than 50% in coordination of care (as documented) at patient's floor/unit and/or counseling patient: Coding Level of Care Code 31226 SUB INP/OBS CARE 2/35MIN Diagnoses Gram-negative bacteremia R78.81 PAD (peripheral artery disease) I73.9 Acute exacerbation of chronic obstructive pulmonary disease (COPD) J44.1 Atrial fibrillation, unspecified type I48.91 Atrial fibrillation type: unspecified ETOH abuse F10.10 (4) Atrial fibrillation Atrial fibrillation type: unspecified Qualified Code(s): I48.91 - Unspecified atrial fibrillation
--- NOTE | 2024-12-19 14:30 | Consultation ---
Date of Consultation December 19, 2024 Assessment & Plan (1) PAD (peripheral artery disease): Due to this gentleman significant shortness of breath while at rest no intervention is planned at this point. He does not have any rest pain in his feet. He claims that the ulceration of the right foot has gotten significantly smaller in the last few weeks. At this point I would continue the improve his respiratory status. We will see him in the office postdischarge for follow-up for peripheral vascular disease. Thank you very much for letting us participate in the care of this patient. History of Present Illness Reason for Consultation: PAD and nonhealing ulcer right foot Attending Physician: Gonzalo Todd MD History of Present Illness This is a 64-year-old male who presented with increased shortness of breath. He has a known history of severe COPD, CHF, and alcohol abuse. At the time of admission he was found to have cellulitis of the right lower extremity. At the time of presentation he did have a leukocytosis low blood pressure. He does have a nonhealing ulcer which she claims been there for 6 months but has gotten progressively better and is smaller in size. He denies any rest pain in his feet. He does not ambulate and is only using the legs to transfer. Allergies Allergy/AdvReac Type Severity Reaction Status Date / Time erythromycin base Allergy Intermediate hives or Verified 12/14/24 17:58 diarrhea Penicillins Allergy Intermediate hives or Verified 12/14/24 17:58 diarrhea NITRATES IN PROCESSED MEATS Allergy Severe Difficulty Uncoded 12/14/24 17:58 Breathing Home Medications Medication Instructions Recorded Confirmed Type cetirizine 10 mg tablet 10 mg PO DAILY PRN Allergy Symptoms 12/29/18 12/14/24 History multivitamin (Daily-Deanne tablet) 1 tab PO DAILY 07/20/20 12/14/24 History ibuprofen 200 mg capsule 400 mg PO Q6H PRN Pain 06/24/22 12/14/24 History magnesium 250 mg tablet 250 mg PO DAILY 09/16/22 12/14/24 History nebulizers #1 ea 12/23/22 04/18/24 Rx guaifenesin 600 mg tablet, 600 mg PO BID PRN congestion #60 01/28/23 12/14/24 Rx extended release 12 hr (Mucinex) tabs albuterol sulfate 1.25 mg/3 mL 1.25 mg (3 mL) inhalation QID PRN 03/31/23 12/14/24 Rx solution for nebulization shortness of breath or wheezing #360 mL potassium chloride 10 mEq 10 meq PO DAILY #90 tabs 06/08/24 12/14/24 Rx tablet,extended release (Klor-Con) rivaroxaban 10 mg tablet (Xarelto) 10 mg PO QPM #90 tabs 06/27/24 12/14/24 Rx furosemide 20 mg tablet (Lasix) 20 mg PO Q6H edema #120 tabs 10/18/24 12/14/24 Rx metoprolol succinate 50 mg 50 mg PO DAILY #90 tabs 10/19/24 12/14/24 Rx tablet,extended release 24 hr budesonide 160 mcg-glycopyr 9 2 inh inhalation BID #10.7 grams 10/25/24 12/14/24 Rx mcg-formot 4.8 mcg/actuation HFA inhaler (Breztri Aerosphere) bupropion HCl 150 mg tablet,12 hr 150 mg PO BID #60 ea 11/08/24 12/14/24 Rx sustained-release (Wellbutrin SR) albuterol sulfate 90 mcg/actuation 2 puff inhalation Q4H PRN 11/26/24 12/14/24 Rx aerosol inhaler (Ventolin HFA) Shortness Of Breath Or Wheezing #18 grams oxycodone-acetaminophen 10 mg-325 1 tab PO Q6H PRN pain #60 tabs 12/14/24 12/14/24 Rx mg tablet (Percocet) Patient History Medical History Back pain HX L2 FRACTURE>HEALED Leg cramps AT NIGHT Congestive heart failure Atrial fibrillation FOLLOWED BY [facility] COPD (chronic obstructive pulmonary disease) Surgical History History of total hip arthroplasty RT H/O abdominal surgery X 2 ? EXPLORATORY>MARITTA TAO, ABDOMINAL BENIGN MASS REMOVED A CHILD History of tonsillectomy History of tooth extraction Hx of appendectomy Family History Father Hairy cell leukemia Myocardial infarction Colorectal cancer Mother Multiple myeloma Other No family history of adverse response to anesthesia Denies family history of Ovarian cancer Prostate cancer Breast cancer Social History Smoking Status: Current every day smoker Tobacco Type: Cigarettes Age Started Using Tobacco: 16; packs per day: 1; Cigarettes Per Day: 30 CIG DAILY; Second Hand Exposure: Yes; Do You Dip or Chew Tobacco: No; Hx Alcohol Use: Yes Alcohol type: beer Alcohol Intake Frequency: 4 or More x per/Week Alcohol Intake Frequency Comment: 36-48 ounces of beer a day Hx Substance Use: No Preferred Language: Uzbek Communication Ability: Effective Exceptional Children Teacher Required: No Beliefs That Will Affect Care: None marital status: marital status details: no children Current Living Situation: Spouse Current Living Situation Comment: lives in [place] by himself current occupational status: disabled 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 Feels Safe at Home: Yes caffeine: Yes Dental Care, Regularly: No Physical Activity Frequency: Does not Exercise Seatbelt Use: always Sunscreen Use: No Assistive Devices: Walker and Wheelchair Physical Exam Constitutional: WD/WN, vitals as above Respiratory: + labored breathing, + retractions and + uses accessory muscles Auscultation: + diminished lung sounds Cardiovascular: Rate/Rhythm: regular rate and regular rhythm Vessels: femoral pulses present and radial pulses present; + posterior tibial pulses abnormal and + dorsalis pedis pulses abnormal Gastrointestinal (Abdomen): Inspection/Auscultation: abdomen normal to inspection and + abdomen distended Percussion/Palpation: abdomen soft; abdomen nontender Musculoskeletal: Head/Neck/Chest: neck supple Neurologic: CN's II-XI intact bilaterally and moves all extremities Psychiatric: Orientation: alert and oriented x 3 Results & Data Vital Signs (Past 12 Hours) Vital Signs Temp Pulse Pulse Resp BP Pulse Ox O2 Del Method 12/19/24 11:17 36.3 C L 78 24 117/79 100 Room Air 12/19/24 11:06 64 15 94 Room Air 12/19/24 07:43 36.7 C 75 18 121/77 95 Room Air 12/19/24 07:13 78 18 95 Room Air 12/19/24 07:00 Room Air, Nasal Cannula 12/19/24 07:00 63 12/19/24 02:49 36.6 C 77 16 120/72 95 Room Air O2 Flow Rate FiO2 12/19/24 11:17 12/19/24 11:06 21 12/19/24 07:43 12/19/24 07:13 12/19/24 07:00 2 12/19/24 07:00 12/19/24 02:49
--- NOTE | 2024-12-20 10:02 | Hospitalist Progress Note ---
Date of Service December 20, 2024 Assessment & Plan (1) Gram-negative bacteremia: Plan: Morganella bacteremia - source R foot wounds -continue cefepime, can complete oral cefuroxime or cefpodoxime total 14d (2) PAD (peripheral artery disease): Plan: -reviewed arterial duplex >75% stenosis left prox fem aa, disease also present on the R -L foot is ischemic but chronically so, R foot wounds and healing also impeded by PAD -Vascular not recommending any revascularization procedure that this time (3) Acute exacerbation of chronic obstructive pulmonary disease (COPD): Plan: continue Bipap prn. does not use cpap/bipap at home -continue prednisone 40 mg daily, continue bronchodilators -pulm consulted for optimization of home inhalers (4) Atrial fibrillation: Plan: -continue metoprolol and xarelto, rate controlled (5) ETOH abuse: Plan: does not wish to stop - continue beers to prevent withdrawal Plan 64 y/o man admitted with sepsis due to cellulitis of right foot, longstanding chronic wound on dorsum of right foot and right heel wound, acute exacerbation of COPD Case management follow for discharge planning Admission and Anticipated Discharge Date Admission Date: December 14, 2024 Review of Systems Review of Systems: CONST: Negative for fever, body aches and chills. HENT: Negative for neck pain/stiffness, headache, congestion, sore throat, swelling. EYES: Negative for discharge/pain or vision changes. RESP: Negative for cough/hemoptysis and shortness of breath. CV: Negative chest pain, difficulty breathing, palpitations. ABD: Negative pain, nausea, vomiting. : Negative increase frequency, dysuria, blood in urine or stool. MUSC: Negative for muscle aches, edema. SKIN: Negative rash, lesions/sores. NEURO: Negative headache, dizziness, weakness. Physical Exam Physical Exam: GENERAL APPEARANCE NAD, activity normal for age, well developed/ well nourished, no cyanosis, pallor, or diaphoresis. EYES lids/conjunctiva normal. EARS/NOSE/THROAT Mucous membranes moist, nares normal, lips/teeth normal uvula midline without oral pharyngeal erythema, exudate or swelling TMs normal bilaterally. No lymphangitis/lymphedema. HEAD/NECK normocephalic atraumatic, no facial trauma, neck is supple. RESPIRATORY respiratory effort normal, speaks in full sentences, no tripod p osition, no accessory muscle use. Lungs clear to auscultation without rhonchi, wheezes, rales CARDIAC Regular rate and rhythm, no edema. ABDOMINAL Soft, ND/NT. No evidence of fluid wave. No pulsatile masses on exam, rebound tenderness, Campbell sign or pain over Mcburney's point. MUSCLES/EXTREMITIES No abnormal range of motion, no swelling. Right dorsal foot ulcer. SKIN Warm, pink and dry. No rashes, dermatoses, petechiae or lesions. NEUROLOGICAL Speech is clear and appropriate. Normal level of consciousness. Gait and coordination are normal. 5/5 strength in all extremities. PSYCH Normal mood and affect. Judgement/competence is appropriate Results & Data Results & Data Vital Signs (Past 12 Hours) Vital Signs Temp Pulse Pulse Resp BP Pulse Ox O2 Del Method 12/20/24 07:52 36.7 C 74 20 122/78 95 Room Air 12/20/24 07:03 76 19 96 Room Air 12/20/24 02:33 36.6 C 79 16 114/75 96 Room Air 12/19/24 22:14 36.7 C 84 18 126/79 93 Room Air 12/19/24 22:04 85 FiO2 12/20/24 07:52 12/20/24 07:03 21 12/20/24 02:33 12/19/24 22:14 12/19/24 22:04 PG Care Time/CCT Total # of Minutes Spent Total Time Spent with Patient: Total time spent is greater than 50% in coordination of care (as documented) at patient's floor/unit and/or counseling patient: Coding Level of Care Code 06743 SUB INP/OBS CARE 2/35MIN Diagnoses Gram-negative bacteremia R78.81 PAD (peripheral artery disease) I73.9 Acute exacerbation of chronic obstructive pulmonary disease (COPD) J44.1 Atrial fibrillation, unspecified type I48.91 Atrial fibrillation type: unspecified ETOH abuse F10.10 (4) Atrial fibrillation Atrial fibrillation type: unspecified Qualified Code(s): I48.91 - Unspecified atrial fibrillation
--- NOTE | 2024-12-20 11:01 | Pulmonary Consultation ---
Date of Consultation December 20, 2024 Assessment & Plan (1) Acute respiratory failure with hypoxia and hypercapnia: (2) Acute exacerbation of chronic obstructive pulmonary disease (COPD): (3) Chronic bronchitis: (4) Abnormal chest CT: (5) Chronic obstructive pulmonary disease: COPD type: unspecified COPD Qualified Code(s): J44.9 - Chronic obstructive pulmonary disease, unspecified Plan CTA chest 12/14/2024 personally reviewed: Centrilobular paraseptal emphysema appreciated bilaterally Right upper lobe linear atelectasis with some scarring Atelectasis of the right lower lobe No significant mediastinal lymphadenopathy 2D echo 12/18/2024: EF 60-65%, normal diastolic function, RV not well-visualized with normal function Spirometry 01/28/2023 personally reviewed: Very severe obstructive lung dysfunction FVC 1.48 L 35%, FEV1 0.56 L 18%, FEV/FVC 38% VBG 12/14/2024: 7.41/54 -- COPD with emphysema and chronic bronchitis Gold E, end-stage Alpha-1 level and phenotype within normal limit 01/28/2023 On BrezTri at home Respiratory BioFire negative for everything on 12/14/2024 QTc 518, not a good candidate for chronic azithromycin therapy Absolute eosinophil count only 10 on 12/14/2024 Patient will be a candidate for AVAPS but unfortunately he says he will not be able to tolerate anything on his face He has tried BiPAP in the past and he would not want anything such to help with his breathing -- Current smoker 13-xauy-odno smoking history Currently smoking 2 packs a day Reports of quitting explained to the patient in depth -- History of necrotizing pneumonia right upper lobe January 2019 --A-fib On Xarelto Plan: CT chest does not show any clear signs of pneumonia. Change inhalers to nebulized medication while in the hospital, I do think you will also benefit from nebulizers at home rather than inhalers His inspiratory effort does not seem to be good enough to get the full benefit from inhalers Recommend palliative care consult I spent more than 75 minutes looking in the chart, images, discussing the plan of care with the patient, RN as well as primary team Please note the above document was generated using voice recognition software. It may contain grammatical, syntax or spelling errors.Any formal questions or concerns about the content, text or information contained within the body of this dictation should be directly addressed to the provider for clarification. History of Present Illness Attending Physician: Gonzalo Todd MD History of Present Illness 64-year-old male admitted to the hospital for worsening shortness of breath Past medical history: Diastolic CHF, A-fib on Xarelto, COPD At the time of examination patient was noted to good mood He stated that he is feeling little bit better compared to when he came to the hospital He was compliant with his inhalers at home and says that he uses it on a regular basis. He is still smoking actively. Denies any significant chest congestion. When he does bring up phlegm is mostly clear. Denies any hemoptysis. No dysuria or diarrhea prior to coming to the hospital No night sweats, no unintentional weight loss No unusual headache or blurry vision Social history: Greater than [id number]-[id number] smoker, actively smoking, daily alcohol use, denies any illicit drug use. 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 following that Pets: Has a cat and a dog at home Allergies: Seasonal Asthma: No personal or family history of Lung cancer: No history of lung cancer in the Allergies Allergy/AdvReac Type Severity Reaction Status Date / Time erythromycin base Allergy Intermediate hives or Verified 12/14/24 17:58 diarrhea Penicillins Allergy Intermediate hives or Verified 12/14/24 17:58 diarrhea NITRATES IN PROCESSED MEATS Allergy Severe Difficulty Uncoded 12/14/24 17:58 Breathing Home Medications Medication Instructions Recorded Confirmed Type cetirizine 10 mg tablet 10 mg PO DAILY PRN Allergy Symptoms 12/29/18 12/14/24 History multivitamin (Daily-Deanne tablet) 1 tab PO DAILY 07/20/20 12/14/24 History ibuprofen 200 mg capsule 400 mg PO Q6H PRN Pain 06/24/22 12/14/24 History magnesium 250 mg tablet 250 mg PO DAILY 09/16/22 12/14/24 History nebulizers #1 ea 12/23/22 04/18/24 Rx guaifenesin 600 mg tablet, 600 mg PO BID PRN congestion #60 01/28/23 12/14/24 Rx extended release 12 hr (Mucinex) tabs albuterol sulfate 1.25 mg/3 mL 1.25 mg (3 mL) inhalation QID PRN 03/31/23 12/14/24 Rx solution for nebulization shortness of breath or wheezing #360 mL potassium chloride 10 mEq 10 meq PO DAILY #90 tabs 06/08/24 12/14/24 Rx tablet,extended release (Klor-Con) rivaroxaban 10 mg tablet (Xarelto) 10 mg PO QPM #90 tabs 06/27/24 12/14/24 Rx furosemide 20 mg tablet (Lasix) 20 mg PO Q6H edema #120 tabs 10/18/24 12/14/24 Rx metoprolol succinate 50 mg 50 mg PO DAILY #90 tabs 10/19/24 12/14/24 Rx tablet,extended release 24 hr bupropion HCl 150 mg tablet,12 hr 150 mg PO BID #60 ea 11/08/24 12/14/24 Rx sustained-release (Wellbutrin SR) albuterol sulfate 90 mcg/actuation 2 puff inhalation Q4H PRN 11/26/24 12/14/24 Rx aerosol inhaler (Ventolin HFA) Shortness Of Breath Or Wheezing #18 grams oxycodone-acetaminophen 10 mg-325 1 tab PO Q6H PRN pain #60 tabs 12/14/24 12/14/24 Rx mg tablet (Percocet) budesonide 0.5 mg/2 mL suspension 0.25 mg inhalation BID #60 mL 12/21/24 Rx for nebulization budesonide 160 mcg-glycopyr 9 2 inh inhalation BID #10.7 grams 12/21/24 Rx mcg-formot 4.8 mcg/actuation HFA inhaler (Breztri Aerosphere) cefuroxime axetil 500 mg tablet 500 mg PO BID 7 days #14 tabs 12/21/24 Rx formoterol fumarate 20 mcg/2 mL 2 ml inhalation BID #120 mL 12/21/24 Rx solution for nebulization prednisone 10 mg tablet 10 mg PO DIRECTED #20 tabs 12/21/24 Rx revefenacin 175 mcg/3 mL solution 175 mcg (3 mL) inhalation DAILY 12/21/24 Rx for nebulization (Yupelri) #90 mL Patient History Medical History Back pain HX L2 FRACTURE>HEALED Leg cramps AT NIGHT Congestive heart failure Atrial fibrillation FOLLOWED BY [facility] COPD (chronic obstructive pulmonary disease) Surgical History History of total hip arthroplasty RT H/O abdominal surgery X 2 ? EXPLORATORY>MARTITA TAO, ABDOMINAL BENIGN MASS REMOVED A CHILD History of tonsillectomy History of tooth extraction Hx of appendectomy Family History Father Hairy cell leukemia Myocardial infarction Colorectal cancer Mother Multiple myeloma Other No family history of adverse response to anesthesia Denies family history of Ovarian cancer Prostate cancer Breast cancer Social History Smoking Status: Current every day smoker Tobacco Type: Cigarettes Age Started Using Tobacco: 16; packs per day: 1; Cigarettes Per Day: 30 CIG DAILY; Second Hand Exposure: Yes; Do You Dip or Chew Tobacco: No; Hx Alcohol Use: Yes Alcohol type: beer Alcohol Intake Frequency: 4 or More x per/Week Alcohol Intake Frequency Comment: 36-48 ounces of beer a day Hx Substance Use: No Preferred Language: Macedonian Communication Ability: Effective 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 Beliefs That Will Affect Care: None marital status: marital status details: no children Current Living Situation: Spouse Current Living Situation Comment: lives in [place] by himself current occupational status: disabled 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 Feels Safe at Home: Yes caffeine: Yes Dental Care, Regularly: No Physical Activity Frequency: Does not Exercise Seatbelt Use: always Sunscreen Use: No Assistive Devices: Walker and Wheelchair Review of Systems 2 Review of Systems: All systems reviewed & are unremarkable except as noted in HPI & below Physical Exam 2 Physical Exam: Constitutional: No acute distress HEENT: EOMI, PERRLA Respiratory system: Decreased air entry bilaterally, no wheeze, no rhonchi, positive crackles bilateral lower lobe CVS: S1-S2 positive, no murmurs or gallops, distant heart sounds Abdomen: Soft, nontender, nondistended, positive bowel sounds x4 Extremities: +2 pulses bilaterally radialis/ dorsalis pedis, no cyanosis, +1 pitting edema bilateral lower extremity Neuro: Awake alert oriented x3 Psych: Normal mood and affect G/U: No Whitaker Skin: no rashes, warm and dry Lymphatic: no cervical or axillary lymphadenopathy Results & Data Results & Data Vital Signs (Past 12 Hours) Vital Signs Temp Pulse Resp BP Pulse Ox O2 Del Method FiO2 12/20/24 10:27 87 20 96 Room Air 12/20/24 07:52 36.7 C 74 20 122/78 95 Room Air 12/20/24 07:03 76 19 96 Room Air 21 12/20/24 02:33 36.6 C 79 16 114/75 96 Room Air Laboratory Results 12/19/24 05:21 12/19/24 05:21 PG Care Time/CCT Total # of Minutes Spent Total Time Spent with Patient: Total time spent is greater than 50% in coordination of care (as documented) at patient's floor/unit and/or counseling patient: Coding Level of Care Code 01215 INT INP/OBS CARE 3/75MIN Diagnoses Acute respiratory failure with hypoxia and hypercapnia J96.01; J96.02 Acute exacerbation of chronic obstructive pulmonary disease (COPD) J44.1 Chronic bronchitis J42 Abnormal chest CT R93.89 Chronic obstructive pulmonary disease, unspecified COPD type J44.9 COPD type: unspecified COPD
[2024-12-20] MEDS: FORMOTEROL 20 MCG/2 ML VIAL NEB SCH (19:44)
[2024-12-20] MEDS: BUDESONIDE 0.25 MG/2 ML VIAL (PULMICORT) NEB SCH (19:44)
[2024-12-21 05:28] LABS: Allen Test Pos (Pos)
[2024-12-21 05:40] LABS: HCO3 ABG 24 mmol/L (19-24); Oxygen Saturation ABG 97.6 % (90-95); PCO2 ABG 38 mmHg (35-46); PO2 ABG 81 mmHg (80-95)
[2024-12-21 08:03] VITALS: TEMP 97.7
--- NOTE | 2024-12-21 09:01 | Discharge Summary ---
Discharge Summary Date of Service December 21, 2024 Principal Dx & Hospital Course #1 = Principal Diagnosis (1) Gram-negative bacteremia: Morganella bacteremia - source R foot wounds -continue cefepime, can complete oral cefuroxime or cefpodoxime total 14d (2) PAD (peripheral artery disease): -reviewed arterial duplex >75% stenosis left prox fem aa, disease also present on the R -L foot is ischemic but chronically so, R foot wounds and healing also impeded by PAD -Vascular not recommending any revascularization procedure that this time (3) Acute exacerbation of chronic obstructive pulmonary disease (COPD): continue Bipap prn. does not use cpap/bipap at home -continue prednisone 40 mg daily, continue bronchodilators -pulm consulted for optimization of home inhalers (4) Atrial fibrillation: -continue metoprolol and xarelto, rate controlled (5) ETOH abuse: does not wish to stop - continue beers to prevent withdrawal Plan 64 y/o man admitted with sepsis due to cellulitis of right foot, longstanding chronic wound on dorsum of right foot and right heel wound, acute exacerbation of COPD Case management follow for discharge planning Admission HPI Per Admitting Provider 64-year-old male PMHx alcohol abuse, anemia, COPD, CHF, chronic venous stasis, prior PTX (R) presenting for respiratory distress starting the day of arrival. EMS provided patient with Solu-Medrol 125 mg and DuoNeb en route. Also with BLE edema and erythema. History limited due to patient being on BiPAP during evaluation. States that SOB has been increasing over the past "few days" and he has been coughing with a mercer tinged sputum being produced at times. He denies F/C, no chest pain or palpitations. Reports that his legs have had some mild swelling but not significantly more from his baseline, and they are not causing pain. No recent injury to legs. He reports that he was most concerned about his worsening SOB. He is not on O2 at baseline. Denies CP, palpitations, abdominal pain, N/V/D/C, URI symptoms, LUTS, weakness, or syncope. ED evaluation reveals CBC with leukocytosis 24.42, stable H&H; PT/INR 12.4/1.2, APTT 33; VBG's [id number]; CMP potassium 3.3, chloride 96, glucose 128; magnesium 1.6; lactate 2.1; BNP 106; troponin 13.9; procalcitonin 0.36; BioFire negative; CXR suspected mild pulmonary edema; chest CTA no PE, diffuse bilateral centrilobular emphysema; EKG SVT at 143 bpm.; Provided with KCl 40 mEq p.o., mag sulfate 2 g IV, lorazepam 0.5 mg IV, cefepime 2 g IV, albuterol nebulizer, albuterol inhaler, and acetaminophen 1 g IV in ED. Please see Dr. Plunkett's attestation for adjustments/additions to treatment plan. Discharge Exam GENERAL APPEARANCE NAD, activity normal for age, well developed/ well nourished, no cyanosis, pallor, or diaphoresis. EYES lids/conjunctiva normal. EARS/NOSE/THROAT Mucous membranes moist, nares normal, lips/teeth normal uvula midline without oral pharyngeal erythema, exudate or swelling TMs normal bilaterally. No lymphangitis/lymphedema. HEAD/NECK normocephalic atraumatic, no facial trauma, neck is supple. RESPIRATORY respiratory effort normal, speaks in full sentences, no tripod position, no accessory muscle use. Lungs clear to auscultation without rhonchi, wheezes, rales CARDIAC Regular rate and rhythm, no edema. ABDOMINAL Soft, ND/NT. No evidence of fluid wave. No pulsatile masses on exam, rebound tenderness, Campbell sign or pain over Mcburney's point. MUSCLES/EXTREMITIES No abnormal range of motion, no swelling. Right dorsal foot ulcer. SKIN Warm, pink and dry. No rashes, dermatoses, petechiae or lesions. NEUROLOGICAL Speech is clear and appropriate. Normal level of consciousness. Gait and coordination are normal. 5/5 strength in all extremities. PSYCH Normal mood and affect. Judgement/competence is appropriate Discharge Plan Discharge Items Patient Disposition: Home - Self-Care Reason For Visit: COPD, ? CELLULITIS Discharge Diagnosis: gram negative bacteremia Condition on Discharge: Serious Activity: Resume your previous activity Non-emergency contact: Primary Care Provider Call non-emergency contact if: you have any medication questions Follow-up/Referrals: Lora Narvaez MD [Primary Care Provider] - Diet: Regular Addtl Attending Provider Instructions: Follow up with PMD in 1 week Pending Studies at Discharge: No Stand-Alone Forms: My eEvent, Smoking Cessation Medications and DC Order Prescriptions: New cefuroxime axetil 500 mg tablet 500 mg PO BID 7 Days Qty: 14 0RF prednisone 10 mg tablet 10 mg PO DIRECTED Qty: 20 0RF Rx Instructions: see taper instructions take 4 tabs for 2 days then, take 3 tabs for 2 days then, take 2 tabs for 2 days then take 1 tab for 2 days Continued (DME) nebulizers Misc See Rx Instructions .ROUTE .MEDSUPPLY Qty: 1 0RF Rx Instructions: Use four times daily as needed albuterol sulfate 1.25 mg/3 mL solution for nebulization 1.25 mg inhalation QID PRN (Reason: shortness of breath or wheezing) Qty: 360 4RF potassium chloride [Klor-Con 10] 10 mEq tablet extended release 10 meq PO DAILY Qty: 90 1RF Xarelto 10 mg tablet 10 mg PO QPM Qty: 90 3RF furosemide [Lasix] 20 mg tablet 20 mg PO Q6H Qty: 120 1RF metoprolol succinate 50 mg tablet extended release 24 hr 50 mg PO DAILY Qty: 90 3RF bupropion HCl [Wellbutrin SR] 150 mg tablet sustained-release 12 hr 150 mg PO BID Qty: 60 2RF albuterol sulfate [Ventolin HFA] 90 mcg/actuation HFA aerosol inhaler 2 puff inhalation Q4H PRN (Reason: Shortness Of Breath Or Wheezing) Qty: 18 3RF oxycodone-acetaminophen [Percocet] 10-325 mg tablet 1 tab PO Q6H PRN (Reason: pain) Qty: 60 0RF Breztri Aerosphere 160-9-4.8 mcg/actuation HFA aerosol inhaler 2 inh inhalation BID Qty: 10.7 1RF magnesium 250 mg tablet 250 mg PO DAILY guaifenesin [Mucinex] 600 mg tablet extended release 12hr 600 mg PO BID PRN (Reason: congestion) Qty: 60 3RF cetirizine 10 mg tablet 10 mg PO DAILY PRN (Reason: Allergy Symptoms) multivitamin [Daily-Deanne] tablet 1 tab PO DAILY ibuprofen 200 mg Capsule 400 mg PO Q6H PRN (Reason: Pain) Discharge Orders: Discharge Order (Routine); Ordered 12/21/24 Ordered By: Gonzalo Todd Admission Data Admit Date/Time: 12/14/24 20:57 Attending Provider: Gonzalo Todd Admit Provider: Chloe Plunkett Primary Care Provider: Lora Narvaez Other Providers: Chloe Plunkett; Renzo Espana; Jerald Worley; Lawrence Torres Hospital Stay Data Consultations 12/14/24 20:17 ED Decision to Admit Stat 12/15/24 12:22 Consult Podiatry Routine 12/18/24 10:03 Consult Vascular Surgery Routine 12/20/24 07:49 Consult Pulmonology Routine Diagnostic Imagining Performed 12/14/24 16:56 CT angio chest PE protocol Stat 12/16/24 11:03 US arterial duplex LE BI Routine 12/17/24 12:18 MR foot RT w/o con Routine Pending Results Patient Have Any Pending Studies at Discharge: No Discharge Instructions Given to Patient (Per Discharging Provider) Follow up with PMD in 1 week Total Time Total Time Spent Total Time Spent (In Minutes): 50 Coding Level of Care Code 76057 INP/OBS DISCH >30 MIN Diagnoses Gram-negative bacteremia R78.81 PAD (peripheral artery disease) I73.9 Acute exacerbation of chronic obstructive pulmonary disease (COPD) J44.1 Atrial fibrillation, unspecified type I48.91 Atrial fibrillation type: unspecified ETOH abuse F10.10
[2024-12-21] MEDS: UMECLIDINIUM BROMIDE 62.5MCG/BLISTER 7 PUFFS/INHALER INH SCH (10:01)
[2024-12-21 11:51] VITALS: RESP 20; O2SAT 94
--- NOTE | 2024-12-21 14:32 | Pulmonology Progress Note ---
Date of Service December 21, 2024 Assessment & Plan (1) Acute respiratory failure with hypoxia and hypercapnia: (2) Chronic obstructive pulmonary disease: COPD type: unspecified COPD Qualified Code(s): J44.9 - Chronic obstructive pulmonary disease, unspecified (3) Atrial fibrillation: Atrial fibrillation type: unspecified Qualified Code(s): I48.91 - Unspecified atrial fibrillation (4) Abnormal chest CT: (5) Chronic bronchitis: (6) Acute exacerbation of chronic obstructive pulmonary disease (COPD): Plan Plan CTA chest 12/14/2024 personally reviewed: Centrilobular paraseptal emphysema appreciated bilaterally Right upper lobe linear atelectasis with some scarring Atelectasis of the right lower lobe No significant mediastinal lymphadenopathy 2D echo 12/18/2024: EF 60-65%, normal diastolic function, RV not well-visualized with normal function Spirometry 01/28/2023 personally reviewed: Very severe obstructive lung dysfunction FVC 1.48 L 35%, FEV1 0.56 L 18%, FEV/FVC 38% VBG 12/14/2024: 7.41/54 -- COPD with emphysema and chronic bronchitis Gold E, end-stage Alpha-1 level and phenotype within normal limit 01/28/2023 On BrezTri at home Respiratory BioFire negative for everything on 12/14/2024 QTc 518, not a good candidate for chronic azithromycin therapy Absolute eosinophil count only 10 on 12/14/2024 -- Current smoker [id number] smoking history Currently smoking 2 packs a day Reports of quitting explained to the patient in depth. Patient expresses desire to stop smoking and will try. -- History of necrotizing pneumonia right upper lobe January 2019 --A-fib On [facility] Admission and Anticipated Discharge Date Admission Date: December 14, 2024 Supervising Physician Co-Signing Physician Notes I saw and evaluated the patient with JAYY Castro, and agree with findings and plan as documented in the note. Patient seen and examined at bedside. No acute distress, no gross events overnight Patient's was also in the room He was ready to go home. Denies any chest pain Breathing has improved No chest pain No dizziness Constitutional: No acute distress HEENT: EOMI, PERRLA Respiratory system: Decreased air entry bilaterally, no wheeze, no rhonchi, positive crackles bilateral lower lobe CVS: S1-S2 positive, no murmurs or gallops, distant heart sounds Abdomen: Soft, nontender, nondistended, positive bowel sounds x4 Extremities: +2 pulses bilaterally radialis/ dorsalis pedis, no cyanosis, +1 pitting edema bilateral lower extremity, small abrasion appreciated on the medial aspect of the right knee Neuro: Awake alert oriented x3 Psych: Normal mood and affect G/U: No Whitaker Plan: Given that his inspiratory effort does not seem to be good enough to get the full benefit from inhalers I think patient is going to benefit from nebulizers at home. I have already sent prescription for budesonide, Brovana as well as Yupelri from the clinic If he is not able to tolerate nebulizers which is unlikely given that he was on nebulizers while in the hospital and I will change it back to EulaliaTri Recommend palliative care consult Case was discussed with RN, all question inquiries of the patient as well as patient's were answered in depth Please note the above document was generated using voice recognition software. It may contain grammatical, syntax or spelling errors.Any formal questions or concerns about the content, text or information contained within the body of this dictation should be directly addressed to the provider for clarification. Subjective "I feel as good as I normally do." "I am always wheezy." "I am going to try and not have any more cigarettes." Patient 94% on room air this afternoon. Patient subjectively states he fees like he is at his baseline pulmonary status. Plan to discharge patient to rehab. Review of Systems 2 Review of Systems: All systems reviewed & are unremarkable except as noted in HPI & below Physical Exam 2 Physical Exam: VITALS: Reviewed. WEIGHT/BMI reviewed. GEN: Chronically ill appearing, well-developed, NAD. PSYCH: Good Judgment. AOx3. Normal memory, mood, and affect. HEENT -Head: NC/AT; -Eyes: PERRL, EOMI. No discharge or redn ess; -Ears: External ears are normal. -Nose: Normal nares. NECK: Supple, with no masses. CV: RRR, no m/r/g. LUNGS: Wheezy in bilateral upepr and lower lobes. Chest rise symmetrical. Breathing mildly labored. ABD: Soft, NT/ND, NBS, no masses or organomegaly. : N/A SKIN: Warm, well perfused. No skin rashes or abnormal lesions. MSK: No deformities, Normal gait. EXT: No clubbing, cyanosis, or edema. NEURO: Normal muscle strength and tone. No focal deficits. Skin: no rashes, warm and dry Lymphatic: no cervical or axillary lymphadenopathy Results & Data Results & Data Vital Signs (Past 12 Hours) Vital Signs Temp Pulse Pulse Resp BP Pulse Ox Pulse Ox 12/21/24 11:51 36.5 C 79 20 115/71 94 12/21/24 11:15 95 12/21/24 10:57 83 18 95 12/21/24 09:00 12/21/24 08:02 36.5 C 75 18 129/83 97 12/21/24 08:00 64 12/21/24 06:58 74 18 94 12/21/24 03:41 36.8 C 76 18 141/62 H 95 O2 Del Method O2 Flow Rate O2 Flow Rate 12/21/24 11:51 Room Air 12/21/24 11:15 2 12/21/24 10:57 Room Air 12/21/24 09:00 Nasal Cannula 2 12/21/24 08:02 Room Air 12/21/24 08:00 12/21/24 06:58 Room Air 12/21/24 03:41 Room Air Laboratory Results 12/19/24 05:21 12/19/24 05:21 Abnormal Lab Results 12/21/24 05:15 ABG pH 7.40 ABG pCO2 38 ABG pO2 81 ABG HCO3 24 ABG O2 Saturation 97.6 H ABG Base Excess -1.1 Zaid Test Pos Oxygen Given RA Diagnostic Findings No recent imaging studies. PG Care Time/CCT Total # of Minutes Spent Total Time Spent with Patient: Total time spent is greater than 50% in coordination of care (as documented) at patient's floor/unit and/or counseling patient: Coding Level of Care Code 17368 SUB INP/OBS CARE 2/35MIN Diagnoses Acute respiratory failure with hypoxia and hypercapnia J96.01; J96.02 Chronic obstructive pulmonary disease, unspecified COPD type J44.9 COPD type: unspecified COPD Atrial fibrillation, unspecified type I48.91 Atrial fibrillation type: unspecified Abnormal chest CT R93.89 Chronic bronchitis J42 Acute exacerbation of chronic obstructive pulmonary disease (COPD) J44.1
[2024-12-21 16:14] VITALS: BP 125/83; PULSE 79
== END 2024-12-21 18:34 | disposition home or self-care (01) | DRG 871 ==
LOC: ED 16:12 → SUATTDRO 20:57 → 4W 20:57

== ENCOUNTER 2025-01-09 15:22 | Observation (INO) ==
[2025-01-09 16:34] LABS: Hematocrit (blood only) 42.8 % (42.0-52.0); Hemoglobin 15.1 g/dl (14.0-18.0); Immature Granulocytes # (auto) 0.02 K/uL (0.01-0.20); Immature Granulocytes % (auto) 0.3 %; Mean Corpuscular Hemoglobin 31.7 pg (25.0-34.0); Mean Corpuscular Volume 89.7 fL (80.0-100.0); Platelet Count 257 K/uL (130-400); RDW Standard Deviation 42.3 fL (36.4-46.3); Red Blood Count 4.77 M/uL (4.70-6.10); White Blood Count 7.86 K/ul (4.8-10.8)
--- NOTE | 2025-01-09 16:46 | Emergency Department Note ---
History of Present Illness General Chief complaint: Wound Time Seen by Provider: 01/09/25 16:18 History of Present Illness This is a 64-year-old male that presents to the emergency department via ambulance with complaints of "wound". The patient notes that he noticed a small blister to the right leg about 1 week ago. He notes that this then opened and has been draining a yellowish clear liquid. He notes that much of the liquid has drained. No fevers, chills, nausea or vomiting. No chest pain or shortness of breath. Patient is now currently on O2 nasal cannula. He notes that this was added by EMS personnel as he was found to be in the high 80s on room air while in transport. The patient was recently hospitalized within the past month. Home Medications Medication Instructions Recorded Confirmed Type cetirizine 10 mg tablet 10 mg PO DAILY PRN Allergy Symptoms 12/29/18 01/09/25 History multivitamin (Daily-Deanne tablet) 1 tab PO DAILY 07/20/20 01/09/25 History ibuprofen 200 mg capsule 400 mg PO Q6H PRN Pain 06/24/22 01/09/25 History magnesium 250 mg tablet 250 mg PO DAILY 09/16/22 01/09/25 History nebulizers #1 ea 12/23/22 01/09/25 Rx guaifenesin 600 mg tablet, 600 mg PO BID PRN congestion #60 01/28/23 01/09/25 Rx extended release 12 hr (Mucinex) tabs albuterol sulfate 1.25 mg/3 mL 1.25 mg (3 mL) inhalation QID PRN 03/31/23 01/09/25 Rx solution for nebulization shortness of breath or wheezing #360 mL potassium chloride 10 mEq 10 meq PO DAILY #90 tabs 06/08/24 01/09/25 Rx tablet,extended release (Klor-Con) rivaroxaban 10 mg tablet (Xarelto) 10 mg PO QPM #90 tabs 06/27/24 01/09/25 Rx metoprolol succinate 50 mg 50 mg PO DAILY #90 tabs 10/19/24 01/09/25 Rx tablet,extended release 24 hr bupropion HCl 150 mg tablet,12 hr 150 mg PO BID #60 ea 11/08/24 01/09/25 Rx sustained-release (Wellbutrin SR) albuterol sulfate 90 mcg/actuation 2 puff inhalation Q4H PRN 11/26/24 01/09/25 Rx aerosol inhaler (Ventolin HFA) Shortness Of Breath Or Wheezing #18 grams budesonide 0.5 mg/2 mL suspension 0.25 mg inhalation BID #60 mL 12/21/24 01/09/25 Rx for nebulization furosemide 20 mg tablet (Lasix) 20 mg PO BID edema #120 tabs 12/28/24 01/09/25 Rx oxycodone-acetaminophen 10 mg-325 1 tab PO Q6H PRN pain #60 tabs 01/09/25 01/09/25 Rx mg tablet (Percocet) Allergies Allergy/AdvReac Type Severity Reaction Status Date / Time erythromycin base Allergy Intermediate hives or Verified 12/14/24 17:58 diarrhea Penicillins Allergy Intermediate hives or Verified 12/14/24 17:58 diarrhea NITRATES IN PROCESSED MEATS Allergy Severe Difficulty Uncoded 12/14/24 17:58 Breathing Past Med/Surg History Problem List (Updated 01/09/25 @ 21:35 by Christiano Arriola PA-C) Cellulitis of both lower extremities PAD (peripheral artery disease) Wound of right foot Cellulitis of right lower extremity Chronic ulcer of right foot with fat layer exposed Other specified peripheral vascular diseases Tobacco use Gram-negative bacteremia Acute respiratory failure with hypoxia and hypercapnia Acute exacerbation of chronic obstructive pulmonary disease (COPD) Hypomagnesemia (Acute) Hypokalemia (Acute) Respiratory failure with hypoxia and hypercapnia (Acute) Cellulitis (Acute) CHF (congestive heart failure) (Acute) Sepsis (Acute) Acute exacerbation of chronic obstructive pulmonary disease (Acute) Hypomagnesemia Hypokalemia Sepsis Positive fecal immunochemical test Nail abnormalities Chronic venous stasis Chronic bronchitis Exertional shortness of breath Current smoker Abnormal chest CT Chest discomfort Tobacco dependence (Chronic) Alcohol abuse (Chronic) Pulmonary nodule (Acute) Chronic obstructive pulmonary disease (Chronic) Pneumonia involving right lung Cardiomyopathy Severe protein-calorie malnutrition Pneumothorax on right (Acute) Parapneumonic effusion COPD (chronic obstructive pulmonary disease) (Chronic) Empyema, right (Acute) Chronic systolic CHF (congestive heart failure) (Chronic) ETOH abuse (Acute) Anemia (Chronic) Intertrochanteric fracture of femur (Acute) Hyponatremia (Acute) Psychosocial problem Chronic pain Palpitation Atrial fibrillation Anticoagulant long-term use Angina at rest Osteopenia determined by x-ray Closed compression fracture of lumbar vertebra (Acute) Acute hyponatremia (Acute) Hyponatremia Encounter for examination following treatment at hospital Edema of both legs Right tibial fracture 2019 novel coronavirus not detected Nasal congestion Elevated troponin Medical History Back pain HX L2 FRACTURE>HEALED Leg cramps AT NIGHT Congestive heart failure Atrial fibrillation FOLLOWED BY [facility] COPD (chronic obstructive pulmonary disease) Surgical History History of total hip arthroplasty RT H/O abdominal surgery X 2 ? EXPLORATORY>[facility], [place], ABDOMINAL BENIGN MASS REMOVED A CHILD History of tonsillectomy History of tooth extraction Hx of appendectomy Family History Father Hairy cell leukemia Myocardial infarction Colorectal cancer Mother Multiple myeloma Other No family history of adverse response to anesthesia Denies family history of Ovarian cancer Prostate cancer Breast cancer Social History Smoking Status: Current every day smoker Tobacco Type: Cigarettes Age Started Using Tobacco: 16; packs per day: 1; Cigarettes Per Day: 30; Second Hand Exposure: Yes; Do You Dip or Chew Tobacco: No; Hx Alcohol Use: Yes Alcohol type: beer Alcohol Intake Frequency: 4 or More x per/Week Alcohol Intake Frequency Comment: 36-48 ounces of beer a day Hx Substance Use: No Preferred Language: Thai Communication Ability: Effective Family Specialist Required: No Beliefs That Will Affect Care: None marital status: marital status details: no children Current Living Situation: Spouse Current Living Situation Comment: lives in [place] by himself current occupational status: disabled other: 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 Feels Safe at Home: Yes caffeine: Yes Dental Care, Regularly: No Physical Activity Frequency: Does not Exercise Seatbelt Use: always Sunscreen Use: No Assistive Devices: Glasses and Wheelchair Review of Systems A total of 10 systems reviewed and were otherwise negative Physical Exam Vital Signs Vital Signs - 24 hr 01/09/25 15:29 01/09/25 16:15 01/09/25 16:49 Temperature 36.6 C Temperature Source Temporal Artery Scan Pulse Rate 99 H 85 Pulse Rate [Finger] 97 H Respiratory Rate 16 22 Respiratory Effort / Characteristics Non-Labored Spontaneous Respiratory Depth Normal Respiratory Pattern Regular Blood Pressure 120/82 Blood Pressure Mean 94 Pulse Oximetry 98 99 Oxygen Delivery Method Nasal Cannula Nasal Cannula Oxygen Flow Rate 2 Sepsis Recent Fever Within 48 Hours No Sepsis New/Unexplained Change in Mental Status No Sepsis Action Taken by Nursing No Action Required VITAL SIGNS - Vital signs and nursing notes were reviewed. Stable and afebrile. GENERAL -64-year-old male appearing his stated age who is in no acute distress. Communicates well with provider and answers questions appropriately. SKIN -bilateral lower extremity purpleish hue which patient notes is chronic. There is erythema to the right lower extremity beginning just distal to the knee tracking throughout the foot. There is a serous drainage from the right lower extremity that is a clearish/yellowish hue. No purulence. HEAD - NC/AT. EYES - PERRL with EOMI bilaterally. Sclera anicteric. EARS - No deformities of external structures noted on gross examination bilaterally. NOSE - Midline and without cyanosis. No epistaxis or purulent drainage noted. MOUTH/OROPHARYNX - Without perioral cyanosis. NECK - Neck with FROM. No nuchal rigidity. LUNGS - CTA CARDIAC - RRR ABDOMEN - Abdominal contour normal without pulsations or visible masses. BS normoactive all four quadrants. No tenderness, palpable masses, hepatosplenomegaly, or ascites noted. EXTREMITIES -bilateral lower extremity purpleish hue and edema to the feet, left greater than right. Pitting edema left greater than right involving the feet. Wound as described above. +5/5 strength noted in UE/LE bilaterally. NEUROLOGIC - Cranial nerves grossly intact. PSYCH -alert, oriented and pleasant on exam. Course Administered Medications Albuterol (Albuterol 0.5% Neb Soln 2.5 Mg/0.5 Ml Vial) 2.5 mg INH QID PRN PRN Reason: shortness of breath or wheezing Stop: 02/08/25 20:27 Last Admin: 01/09/25 23:23 Dose: 2.5 mg Documented By: KMHernan Budesonide (Budesonide 0.25 Mg/2 Ml Vial (Pulmicort)) 0.25 mg INH BID CECILIO Stop: 02/08/25 20:59 Last Admin: 01/09/25 21:09 Dose: 0.25 mg Documented By: TMP Bupropion HCl (Bupropion Sr 150 Mg Tabcr) 150 mg PO BID CECILIO Stop: 02/08/25 20:59 Last Admin: 01/09/25 20:50 Dose: 150 mg Documented By: SONIA Potassium Chloride/Sodium Chloride (Normal Saline W/20 Meq Kcl) 20 meq in 1,000 mls @ 100 mls/hr IV .Q10H CECILIO Stop: 01/10/25 06:25 Last Admin: 01/09/25 20:49 Dose: 100 mls/hr Documented By: SONIA Oxycodone/Acetaminophen (Oxycodone/Acetaminophen 10-325 Tab) 1 tab PO Q6H PRN PRN Reason: Moderate Pain (Scale 4, 5, 6) Stop: 01/23/25 20:25 Last Admin: 01/09/25 20:49 Dose: 1 tab Documented By: SONIA Rivaroxaban (Rivaroxaban 10 Mg Tablet) 10 mg PO QPM CECILIO Stop: 02/08/25 20:59 Last Admin: 01/09/25 20:51 Dose: 10 mg Documented By: SONIA Discontinued Medications Hydromorphone HCl (Hydromorphone Inj 1 Mg/Ml Syringe) 1 mg IV NOW STA Stop: 01/09/25 23:59 Last Admin: 01/10/25 00:09 Dose: 1 mg Documented By: SONAI Cefepime HCl (Maxipime 2000mg) 2,000 mg in 20 mls @ 5 mls/min IV NOW STA; Protocol Stop: 01/09/25 16:56 Last Admin: 01/09/25 17:06 Dose: 5 mls/min Documented By: PATY Vancomycin HCl 1,250 mg/ (Sodium Chloride) 525 mls @ 200 mls/hr IV NOW ONE Stop: 01/09/25 19:30 Last Infusion: 01/09/25 22:02 Dose: Infused Documented By: supervisor vendor quality: 01/09/25 18:32 Dose: 200 mls/hr Documented By: BRIT Potassium Chloride (K Huang / Wtr) 10 meq in 100 mls @ 100 mls/hr IV ONE ONE Stop: 01/09/25 17:56 Last Infusion: 01/09/25 18:22 Dose: Infused Documented By: Admin: 01/09/25 17:21 Dose: 100 mls/hr Documented By: PTAY Medical Decision Making Laboratory Data 01/09/25 16:10 01/09/25 16:10 Lab Results 01/09/25 Range/Units 16:10 WBC 7.86 (4.8-10.8) K/ul RBC 4.77 (4.70-6.10) M/uL Hgb 15.1 (14.0-18.0) g/dl Hct 42.8 (42.0-52.0) % MCV 89.7 (80.0-100.0) fL MCH 31.7 (25.0-34.0) pg MCHC 35.3 (32.0-36.0) g/dL RDW Std Deviation 42.3 (36.4-46.3) fL RDW Coeff of Jm 12.8 (11.5-14.5) % Plt Count 257 (130-400) K/uL MPV 9.7 (9.4-12.4) fL Immature Gran % (Auto) 0.3 % Neut % (Auto) 77.0 % Lymph % (Auto) 11.3 % Bullock % (Auto) 7.5 % Eos % (Auto) 3.4 % Baso % (Auto) 0.5 % Neut # (Auto) 6.05 (1.40-6.50) K/uL Lymph # (Auto) 0.89 L (1.20-3.40) K/uL Bullock # (Auto) 0.59 (0.11-0.59) K/uL Eos # (Auto) 0.27 (0.00-0.50) K/uL Baso # (Auto) 0.04 (0.00-0.20) K/uL Immature Gran # (Auto) 0.02 (0.01-0.20) K/uL Sodium 130 L (136-145) mmol/L Potassium 2.7 L (3.5-5.1) mmol/L Chloride 88 L (98-107) mmol/L Carbon Dioxide 29 (21-32) mmol/L Anion Gap 13 H (3-11) BUN 25 H (6-23) mg/dl Creatinine 1.18 (0.6-1.4) mg/dl Est Cr Clr Drug Dosing 59.9 ml/min eGFR 69.34 BUN/Creatinine Ratio 21.2 H (10-20) Glucose 87 (70-99(Fasting)) mg/dl Calcium 9.1 (8.6-10.3) mg/dl Magnesium 2.2 (1.7-2.4) mg/dl Total Bilirubin 0.5 (0.2-1.0) mg/dl AST 21 (13-39) U/L ALT 13 (7-52) U/L Alkaline Phosphatase 75 (34-104) U/L Total Protein 7.0 (6.0-8.3) gm/dl Albumin 3.9 (3.4-5.0) gm/dl Globulin 3.1 (2.5-4.0) gm/dl Albumin/Globulin Ratio 1.3 (0.9-2) Procalcitonin 0.05 (0-0.5) ng/ml Imaging Data Radiologist's Impression: Chest X-Ray 01/09/25 17:25 Chest radiograph, one view History: Hypoxia Comparison: 12/16/2024 Findings: Single AP view of the chest performed. No focal consolidation or pleural effusion. Mild streaky scarring or atelectasis in the right lung apex, unchanged. The lungs appear emphysematous. No pneumothorax. The cardiomediastinal silhouette is within normal limits. Normal pulmonary vascularity. No evidence for lymphadenopathy. No visualized bony or soft tissue abnormality. Impression: No acute process Electronically signed by Hayes Zamudio 01-09-2025 6:55 PM MDM Narrative Patient was seen and evaluated as above in room B08. Review was performed of triage nursing notes and vital signs. I did review pertinent previous visits and patient history. After obtaining a thorough history and physical examination the above work up was performed. Patient presents to us today via EMS for evaluation of right lower extremity draining wound. He is well-appearing and nontoxic on assessment. He is now requiring O2 via nasal cannula which was administered and route. Chest x-ray per my interpretation negative for acute process. The patient does have cellulitis to the right lower extremity. I did consider Doppler studies of the lower extremities but will note he just had bilateral lower extremity arterial Doppler studies performed less than 1 month ago. These were dated 12/16/2024. These showed diffuse monophasic poststenotic waveforms beginning approximately on the right and left leg diffuse monophasic waveforms as well. Options of care were discussed with the patient. IV access was established and labs were drawn. There is no leukocytosis or concerning anemia. There is hyponatremia 130, hypokalemia 2.7. Elevation of BUN at 25 with a creatinine of 1.18. There is a procalcitonin of 0.05 and a noninfected urine. Wound culture was obtained of the right lower extremity as well as a blood culture. I do recommend IV antibiotics. IV antibiotics ordered. Case discussed with the hospitalist service. Please refer to further documentation regarding his stay. GCS: 15 In the evaluation and treatment of this patient the following differential diagnoses were entertained: Cellulitis, necrotizing fasciitis, peripheral arterial disease, among others. Impression & Plan Cellulitis Discharge Plan Visit Data Chief Complaint: Wound ED Provider: Sharan Diez ED Midlevel Provider: Christiano Arriola Discharge Problem: Cellulitis Patient Disposition: Admitted As Inpatient Condition: Fair Discharge Instructions Interventions: ED Discharge Assessment Last Done: 01/09/25 19:55
[2025-01-09] MEDS ORDERED: VANCOMYCIN CONSULT ACTIVE PRN ×2 (16:53→20:26)
[2025-01-09 16:56] LABS: Alanine Aminotransferase 13.0 U/L (7-52); Albumin Globulin Ratio 1.3 (0.9-2); Alkaline Phosphatase 75.0 U/L (34-104); Anion Gap 13.0 (3-11); Bilirubin,Total 0.5 mg/dl (0.2-1.0); Blood Urea Nitrogen 25.0 mg/dl (6-23); Calcium 9.1 mg/dl (8.6-10.3); Carbon Dioxide 29.0 mmol/L (21-32); Chloride 88.0 mmol/L (98-107); Creatinine Clr Calc Pharmacy 59.9 ml/min; Globulin 3.1 gm/dl (2.5-4.0); Glucose 87.0 mg/dl (70-99(Fasting)); Potassium 2.7 mmol/L (3.5-5.1); Sodium 130.0 mmol/L (136-145); Total Protein 7.0 gm/dl (6.0-8.3)
[2025-01-09] MEDS: CEFEPIME 2000MG 2,000 MG/20 ML SYR IV STA (17:06)
[2025-01-09] MEDS: POTASSIUM CHLORIDE / WTR 10 MEQ/100 ML PLCT IV ONE (17:21)
[2025-01-09 17:43] LABS: Magnesium 2.2 mg/dl (1.7-2.4)
--- NOTE | 2025-01-09 18:05 | History & Physical Report ---
Date of Service January 09, 2025 Assessment & Plan (1) Sepsis: (2) Cellulitis of both lower extremities: (3) Chronic ulcer of right foot with fat layer exposed: (4) PAD (peripheral artery disease): Plan The patient is a 64-year-old wheelchair-bound male with with past medical histor y including PAD, gram-negative bacteremia of right foot wounds due to Morganella with admission from 12/14-12/21/2024, chronic ulceration of right foot, tobacco use, COPD, history of acute on chronic respiratory failure, CHF, chronic venous stasis, alcohol abuse, cardiomyopathy, atrial fibrillation on long-term anticoagulant use. The patient presents to the emergency department with a recurrence of open wounds of right lower extremity, that initially began as a blister about 1 week ago, which spontaneously opened and drained a yellowish clear fluid. He also has had a blister on his left great toe which opened up recently, and both legs have moderately severe erythema extending up to tibial shaft. The patient was noted also to be mildly hypoxic when he came into the emergency department with a pulse ox of around 87%, and had 2 L oxygen placed improved to 99%. He attributes the decreased oxygen saturation to being scrunched over in bed. He denies any signs of upper respiratory infection. Sepsis due to bilateral lower extremity cellulitis, right greater than left- Patient has similar presentation that required admission from 12/14-12/21/2024. At that time Morganella bacteremia was found and treated. Continue vancomycin IV and cefepime IV begun in ED He is allergic to penicillins Consult wound care Peripheral arterial disease- Arterial duplex studies showed greater than 75% stenosis of the left proximal femoral artery, disease also present on the right Left foot is ischemic but chronically so, PAD inhibits healing of both feet Vascular surgery did not recommend any revascularization at that time Acute exacerbation of COPD- Patient did require BiPAP at last visit, however, looks to be doing well with nasal cannula 2 L at this time Continue inhalers and nebulizers Atrial fibrillation- Continue metoprolol and Xarelto History of alcohol abuse- Recent notation says he was provided beer at last admission Monitor for signs of withdrawal History of Present Illness Chief Complaint: The patient presents to the emergency department with a recurrence of open wounds of right lower extremity, that initially began as a blister about 1 week ago, which spontaneously opened and drained a yellowish clear fluid. He also has had a blister on his left great toe which opened up recently, and both legs have moderately severe erythema extending up to tibial shaft. The patient was noted also to be mildly hypoxic when he came into the emergency department with a pulse ox of around 87%, and had 2 L oxygen placed improved to 99%. He attributes the decreased oxygen saturation to being scrunched over in bed. He denies any signs of upper respiratory infection. Primary Care Provider: Lora Narvaez MD The patient is a 64-year-old wheelchair-bound male with with past medical history including PAD, gram-negative bacteremia of right foot wounds due to Morganella with admission from 12/14-12/21/2024, chronic ulceration of right foot, tobacco use, COPD, history of acute on chronic respiratory failure, CHF, chronic venous stasis, alcohol abuse, cardiomyopathy, atrial fibrillation on long-term anticoagulant use. The patient presents to the emergency department with a recurrence of open wounds of right lower extremity, that initially began as a blister about 1 week ago, which spontaneously opened and drained a yellowish clear fluid. He also has had a blister on his left great toe which opened up recently, and both legs have moderately severe erythema extending up to tibial shaft. The patient was noted also to be mildly hypoxic when he came into the emergency department with a pulse ox of around 87%, and had 2 L oxygen placed improved to 99%. He attributes the decreased oxygen saturation to being scrunched over in bed. He denies any signs of upper respiratory infection. Allergies Allergy/AdvReac Type Severity Reaction Status Date / Time erythromycin base Allergy Intermediate hives or Verified 12/14/24 17:58 diarrhea Penicillins Allergy Intermediate hives or Verified 12/14/24 17:58 diarrhea NITRATES IN PROCESSED MEATS Allergy Severe Difficulty Uncoded 12/14/24 17:58 Breathing Home Medications Medication Instructions Recorded Confirmed Type cetirizine 10 mg tablet 10 mg PO DAILY PRN Allergy Symptoms 12/29/18 12/25/24 History multivitamin (Daily-Deanne tablet) 1 tab PO DAILY 07/20/20 12/25/24 History ibuprofen 200 mg capsule 400 mg PO Q6H PRN Pain 06/24/22 12/25/24 History magnesium 250 mg tablet 250 mg PO DAILY 09/16/22 12/25/24 History nebulizers #1 ea 12/23/22 12/25/24 Rx guaifenesin 600 mg tablet, 600 mg PO BID PRN congestion #60 01/28/23 12/25/24 Rx extended release 12 hr (Mucinex) tabs albuterol sulfate 1.25 mg/3 mL 1.25 mg (3 mL) inhalation QID PRN 03/31/23 12/25/24 Rx solution for nebulization shortness of breath or wheezing #360 mL potassium chloride 10 mEq 10 meq PO DAILY #90 tabs 06/08/24 12/25/24 Rx tablet,extended release (Klor-Con) rivaroxaban 10 mg tablet (Xarelto) 10 mg PO QPM #90 tabs 06/27/24 12/25/24 Rx metoprolol succinate 50 mg 50 mg PO DAILY #90 tabs 10/19/24 12/25/24 Rx tablet,extended release 24 hr bupropion HCl 150 mg tablet,12 hr 150 mg PO BID #60 ea 11/08/24 12/25/24 Rx sustained-release (Wellbutrin SR) albuterol sulfate 90 mcg/actuation 2 puff inhalation Q4H PRN 11/26/24 12/25/24 Rx aerosol inhaler (Ventolin HFA) Shortness Of Breath Or Wheezing #18 grams budesonide 0.5 mg/2 mL suspension 0.25 mg inhalation BID #60 mL 12/21/24 12/25/24 Rx for nebulization budesonide 160 mcg-glycopyr 9 2 inh inhalation BID #10.7 grams 12/21/24 12/25/24 Rx mcg-formot 4.8 mcg/actuation HFA inhaler (Breztri Aerosphere) prednisone 10 mg tablet 10 mg PO DIRECTED #20 tabs 12/21/24 12/25/24 Rx furosemide 20 mg tablet (Lasix) 20 mg PO BID edema #120 tabs 12/28/24 Rx oxycodone-acetaminophen 10 mg-325 1 tab PO Q6H PRN pain #60 tabs 01/09/25 Rx mg tablet (Percocet) Past Med/Surg History Problem List (Updated 01/09/25 @ 18:00 by Kwabena Lara MD) Cellulitis of both lower extremities PAD (peripheral artery disease) Wound of right foot Cellulitis of right lower extremity Chronic ulcer of right foot with fat layer exposed Other specified peripheral vascular diseases Tobacco use Gram-negative bacteremia Acute respiratory failure with hypoxia and hypercapnia Acute exacerbation of chronic obstructive pulmonary disease (COPD) Hypomagnesemia (Acute) Hypokalemia (Acute) Respiratory failure with hypoxia and hypercapnia (Acute) Cellulitis (Acute) CHF (congestive heart failure) (Acute) Sepsis (Acute) Acute exacerbation of chronic obstructive pulmonary disease (Acute) Hypomagnesemia Hypokalemia Sepsis Positive fecal immunochemical test Nail abnormalities Chronic venous stasis Chronic bronchitis Exertional shortness of breath Current smoker Abnormal chest CT Chest discomfort Tobacco dependence (Chronic) Alcohol abuse (Chronic) Pulmonary nodule (Acute) Chronic obstructive pulmonary disease (Chronic) Pneumonia involving right lung Cardiomyopathy Severe protein-calorie malnutrition Pneumothorax on right (Acute) Parapneumonic effusion COPD (chronic obstructive pulmonary disease) (Chronic) Empyema, right (Acute) Chronic systolic CHF (congestive heart failure) (Chronic) ETOH abuse (Acute) Anemia (Chronic) Intertrochanteric fracture of femur (Acute) Hyponatremia (Acute) Psychosocial problem Chronic pain Palpitation Atrial fibrillation Anticoagulant long-term use Angina at rest Osteopenia determined by x-ray Closed compression fracture of lumbar vertebra (Acute) Acute hyponatremia (Acute) Hyponatremia Encounter for examination following treatment at hospital Edema of both legs Right tibial fracture 2019 novel coronavirus not detected Nasal congestion Elevated troponin Medical History Back pain HX L2 FRACTURE>HEALED Leg cramps AT NIGHT Congestive heart failure Atrial fibrillation FOLLOWED BY [facility] COPD (chronic obstructive pulmonary disease) Surgical History History of total hip arthroplasty RT H/O abdominal surgery X 2 ? EXPLORATORY>MARTITA TAO, ABDOMINAL BENIGN MASS REMOVED A CHILD History of tonsillectomy History of tooth extraction Hx of appendectomy Family History Father Hairy cell leukemia Myocardial infarction Colorectal cancer Mother Multiple myeloma Other No family history of adverse response to anesthesia Denies family history of Ovarian cancer Prostate cancer Breast cancer Social History Smoking Status: Current every day smoker Tobacco Type: Cigarettes Age Started Using Tobacco: 16; packs per day: 1; Cigarettes Per Day: 30 CIG DAILY; Second Hand Exposure: Yes; Do You Dip or Chew Tobacco: No; Hx Alcohol Use: Yes Alcohol type: beer Alcohol Intake Frequency: 4 or More x per/Week Alcohol Intake Frequency Comment: 36-48 ounces of beer a day Hx Substance Use: No Preferred Language: Azerbaijani Communication Ability: Effective Rig Operator Required: No Beliefs That Will Affect Care: None marital status: marital status details: no children Current Living Situation: Spouse Current Living Situation Comment: lives in [place] by himself current occupational status: disabled 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 Feels Safe at Home: Yes caffeine: Yes Dental Care, Regularly: No Physical Activity Frequency: Does not Exercise Seatbelt Use: always Sunscreen Use: No Assistive Devices: Walker and Wheelchair Review of Systems 2 Review of Systems: The patient denies chest pain, palpitations, shortness of breath, dyspnea on exertion, cough, sore throat, fevers, chills, sweats, nausea, vomiting, diarrhea , constipation, abdominal pain, pelvic pain, blood in urine or stool, dysuria, urinary frequency or urgency, lightheadedness, dizziness, headache, memory loss, loss of consciousness, focal weakness, numbness or tingling in arms, back or neck pain, or night sweats. The review of systems is otherwise negative other than for that already noted above, and at least 10 systems have been reviewed. Physical Exam Physical Exam: The patient is awake, alert and oriented 3, well developed and well nourished, normocephalic and atraumatic, lying in bed and in no acute distress. HEENT--PERRL, EOMI, mucous membranes and oropharynx mildly dry. Neck--supple. No JVD. No bruits. Thyroid normal, trachea midline, no adenopathy. Heart--normal S1 and S2. No murmurs, rubs or gallops. Lungs--decreased breath sounds throughout Abdomen--normal bowel sounds and soft. Nontender. Nondistended Extremities-- No edema. Diminished pulses bilaterally Dermatologic--ruptured blister medially on right lower extremity. Diffuse erythema bilaterally. Open abrasion right great toe plantar surface Neurologic--cranial nerves II through XII grossly intact. Rheumatologic--lower extremity limited due to infection Psychiatric--normal affect. Results & Data Results & Data Vital Signs (Past 12 Hours) Vital Signs Temp Pulse Pulse Resp BP Pulse Ox O2 Del Method 01/09/25 16:49 85 01/09/25 16:15 97 H 22 99 Nasal Cannula 01/09/25 15:29 36.6 C 99 H 16 120/82 98 Nasal Cannula O2 Flow Rate 01/09/25 16:49 01/09/25 16:15 2 01/09/25 15:29 Laboratory Results Laboratory Results WBC 7.86 K/ul (4.8-10.8) 01/09/25 16:10 RBC 4.77 M/uL (4.70-6.10) 01/09/25 16:10 Hgb 15.1 g/dl (14.0-18.0) 01/09/25 16:10 Hct 42.8 % (42.0-52.0) 01/09/25 16:10 MCV 89.7 fL (80.0-100.0) 01/09/25 16:10 MCH 31.7 pg (25.0-34.0) 01/09/25 16:10 MCHC 35.3 g/dL (32.0-36.0) 01/09/25 16:10 RDW Std Deviation 42.3 fL (36.4-46.3) 01/09/25 16:10 RDW Coeff of Jm 12.8 % (11.5-14.5) 01/09/25 16:10 Plt Count 257 K/uL (130-400) 01/09/25 16:10 MPV 9.7 fL (9.4-12.4) 01/09/25 16:10 Immature Gran % (Auto) 0.3 % 01/09/25 16:10 Neut % (Auto) 77.0 % 01/09/25 16:10 Lymph % (Auto) 11.3 % 01/09/25 16:10 Ripley % (Auto) 7.5 % 01/09/25 16:10 Eos % (Auto) 3.4 % 01/09/25 16:10 Baso % (Auto) 0.5 % 01/09/25 16:10 Neut # (Auto) 6.05 K/uL (1.40-6.50) 01/09/25 16:10 Lymph # (Auto) 0.89 K/uL (1.20-3.40) L 01/09/25 16:10 Ripley # (Auto) 0.59 K/uL (0.11-0.59) 01/09/25 16:10 Eos # (Auto) 0.27 K/uL (0.00-0.50) 01/09/25 16:10 Baso # (Auto) 0.04 K/uL (0.00-0.20) 01/09/25 16:10 Immature Gran # (Auto) 0.02 K/uL (0.01-0.20) 01/09/25 16:10 Sodium 130 mmol/L (136-145) L 01/09/25 16:10 Potassium 2.7 mmol/L (3.5-5.1) L 01/09/25 16:10 Chloride 88 mmol/L (98-107) L 01/09/25 16:10 Carbon Dioxide 29 mmol/L (21-32) 01/09/25 16:10 Anion Gap 13 (3-11) H 01/09/25 16:10 BUN 25 mg/dl (6-23) H 01/09/25 16:10 Creatinine 1.18 mg/dl (0.6-1.4) 01/09/25 16:10 Est Cr Clr Drug Dosing 59.9 ml/min 01/09/25 16:10 eGFR 69.34 01/09/25 16:10 BUN/Creatinine Ratio 21.2 (10-20) H 01/09/25 16:10 Glucose 87 mg/dl (70-99(Fasting)) 01/09/25 16:10 Calcium 9.1 mg/dl (8.6-10.3) 01/09/25 16:10 Magnesium 2.2 mg/dl (1.7-2.4) 01/09/25 16:10 Total Bilirubin 0.5 mg/dl (0.2-1.0) 01/09/25 16:10 AST 21 U/L (13-39) 01/09/25 16:10 ALT 13 U/L (7-52) 01/09/25 16:10 Alkaline Phosphatase 75 U/L (34-104) 01/09/25 16:10 Total Protein 7.0 gm/dl (6.0-8.3) 01/09/25 16:10 Albumin 3.9 gm/dl (3.4-5.0) 01/09/25 16:10 Globulin 3.1 gm/dl (2.5-4.0) 01/09/25 16:10 Albumin/Globulin Ratio 1.3 (0.9-2) 01/09/25 16:10 Procalcitonin 0.05 ng/ml (0-0.5) 01/09/25 16:10 Code Status & VTE Plan Code Status Full code VTE Prophylaxis Plan VTE Prophylaxis will be ordered: Yes PG Care Time/CCT Total # of Minutes Spent Total Time Spent with Patient: Total time spent is greater than 50% in coordination of care (as documented) at patient's floor/unit and/or counseling patient: Coding Level of Care Code 41541 INT INP/OBS CARE 3/75MIN Diagnoses Sepsis A41.9 Cellulitis of both lower extremities L03.115; L03.116 Chronic ulcer of right foot with fat layer exposed L97.512 PAD (peripheral artery disease) I73.9
[2025-01-09] MEDS: VANCOMYCIN HCL 1,250 MG in SODIUM CHLORIDE 0.9% 500 ML IV ONE (18:32)
--- NOTE | 2025-01-09 18:55 | XRay Report ---
Chest radiograph, one view History: Hypoxia Comparison: 12/16/2024 Findings: Single AP view of the chest performed. No focal consolidation or pleural effusion. Mild streaky scarring or atelectasis in the right lung apex, unchanged. The lungs appear emphysematous. No pneumothorax. The cardiomediastinal silhouette is within normal limits. Normal pulmonary vascularity. No evidence for lymphadenopathy. No visualized bony or soft tissue abnormality. Impression: No acute process Electronically signed by Hayes Zamudio 01-09-2025 6:55 PM
[2025-01-09] MEDS ORDERED: CETIRIZINE HCL 10 MG TABLET PO PRN (20:26)
[2025-01-09] MEDS ORDERED: ACETAMINOPHEN 325 MG TAB PO PRN (20:26)
[2025-01-09] MEDS: NSS + 20MEQ KCL 20 MEQ/1,000 ML BAG IV SCH (20:49)
[2025-01-09] MEDS: RIVAROXABAN 10 MG TABLET PO SCH (20:51)
[2025-01-09] MEDS ORDERED: NON-FORMULARY MEDICATION (Budesonide-Glycopyr-Formoterol [Breztri Aerosphere] 160-9-4.8 mc INH SCH (21:00)
[2025-01-09 21:09] LABS: Appearance Urine Clear (Clear); Glucose Urine UA Negative (Negative)
[2025-01-09] MEDS: BUDESONIDE 0.25 MG/2 ML VIAL (PULMICORT) INH SCH (21:09)
[2025-01-09] MEDS: ALBUTEROL 0.5% NEB SOLN 2.5 MG/0.5 ML VIAL INH PRN (23:23)
[2025-01-10] MEDS: HYDROmorphone INJ 1 MG/ML SYRINGE IV STA (00:09)
[2025-01-10] MEDS: ALBUTEROL HFA 8 GM INHALER INH PRN (02:04)
[2025-01-10] MEDS: VANCOMYCIN HCL 1,500 MG in SODIUM CHLORIDE 0.9% 500 ML IV SCH (04:46)
[2025-01-10] MEDS: CEFEPIME 2000MG 2,000 MG/20 ML SYR IV SCH (04:46)
[2025-01-10 06:20] LABS: Hematocrit (blood only) 39.4 % (42.0-52.0); Hemoglobin 13.4 g/dl (14.0-18.0); Immature Granulocytes # (auto) 0.04 K/uL (0.01-0.20); Immature Granulocytes % (auto) 0.5 %; Mean Corpuscular Hemoglobin 31.5 pg (25.0-34.0); Mean Corpuscular Volume 92.7 fL (80.0-100.0); Platelet Count 219 K/uL (130-400); RDW Standard Deviation 44.1 fL (36.4-46.3); Red Blood Count 4.25 M/uL (4.70-6.10); White Blood Count 8.43 K/ul (4.8-10.8)
[2025-01-10 06:43] LABS: Alanine Aminotransferase 12 U/L (7-52); Albumin Globulin Ratio 1.2 (0.9-2); Alkaline Phosphatase 63 U/L (34-104); Anion Gap 6 (3-11); Bilirubin,Total 0.6 mg/dl (0.2-1.0); Blood Urea Nitrogen 15 mg/dl (6-23); Calcium 8.4 mg/dl (8.6-10.3); Carbon Dioxide 29 mmol/L (21-32); Chloride 101 mmol/L (98-107); Creatinine Clr Calc Pharmacy 83.2 ml/min; Globulin 2.8 gm/dl (2.5-4.0); Glucose 62 mg/dl (70-99(Fasting)); Magnesium 2.1 mg/dl (1.7-2.4); Sodium 136 mmol/L (136-145); Total Protein 6.1 gm/dl (6.0-8.3)
[2025-01-10 07:47] LABS: Potassium 3.4 mmol/L (3.5-5.1)
[2025-01-10] MEDS ORDERED: VANCOMYCIN HCL 1,000 MG in SODIUM CHLORIDE 0.9% 250 ML IV SCH (08:00)
[2025-01-10] MEDS: UMECLIDINIUM/VILANTEROL 62.5/25MCG 7 PUFFS/INHALER INH SCH (08:57)
[2025-01-10] MEDS: FLUTICASONE FUROATE 200MCG 14 PUFFS/INHALER INH SCH (08:57)
[2025-01-10] MEDS: METOPROLOL SUCC 50MG EXT REL TAB PO SCH (08:58)
[2025-01-10] MEDS: MULTIVITAMIN TAB PO SCH (08:58)
[2025-01-10] MEDS: MAGNESIUM OXIDE 400 MG TAB PO SCH (08:58)
[2025-01-10] MEDS: POTASSIUM CHLORIDE 10 MEQ TABCR PO SCH (08:58)
--- NOTE | 2025-01-10 09:24 | Pharmacy Report ---
Pharmacy PK ABX Note - Date of Service January 10, 2025 - Assessment and Plan Assessment 64 year old M admitted for bilateral lower extremity cellulitis (R>L) in the setting of chronic ulceration of right foot. Recent admission 12/14/24 - 12/21/24 for Morganella morganii bacteremia 2/2 right foot wound. * R foot MRI showed no evidence of OM during previous admission. * Patient was treated with cefepime IV and transitioned to cefuroxime on discharge. Patient has been started on empiric cefepime + vancomycin IV. Leg and BC x 2 pending. Plan Vancomycin * 1250 mg IV x 1 - given in ED 01/09 PM * 1500 mg IV q24h - started 01/10 @ 0500 * Change maintenance dose to 1000 mg IV every 12 hours - based on improved CrCL, Scr is now at baseline * Regimen is predicted to achieve target AUC/COLTON of 400-600 mg/L.hr * est. steady state AUC/COLTON = 531 * Vanco random level ordered for 01/11 with am labs Cefepime Pharmacy will continue to follow and will adjust dose/frequency as necessary. Thank you. Pharmacy has transitioned to AUC monitoring for vancomycin. AUC/COLTON is the preferred PK/PD target and is associated with decreased risk of nephrotoxicity compared to traditional trough targets.
[2025-01-10] MEDS: BEER 1 CAN PO SCH (13:12)
[2025-01-10] MEDS: NICOTINE 21 MG/24 HR TDSY TD SCH (15:15)
--- NOTE | 2025-01-10 18:01 | Hospitalist Progress Note ---
Date of Service January 10, 2025 Assessment & Plan (1) Sepsis: (2) Cellulitis of both lower extremities: (3) Chronic ulcer of right foot with fat layer exposed: (4) PAD (peripheral artery disease): Plan The patient is a 64-year-old wheelchair-bound male with with past medical history including PAD, gram-negative bacteremia of right foot wounds due to Morganella with admission from 12/14-12/21/2024, chronic ulceration of right foot, tobacco use, COPD, history of acute on chronic respiratory failure, CHF, chronic venous stasis, alcohol abuse, cardiomyopathy, atrial fibrillation on long-term anticoagulant use. He was admitted with acute and chronic bilateral foot wounds and RLE, possibly LLE cellulitis Sepsis due to bilateral lower extremity cellulitis, right greater than left- Bilateral LE acute and chronic foot wounds Patient has similar presentation that required admission from 12/14-12/21/2024. At that time Morganella bacteremia was found and treated, foot MRI was negative for osteo and abscess. Continue vancomycin IV and cefepime IV begun in ED, may need anaerobic coverage He is allergic to penicillins Consulted wound care RLE cellulitis has improved Peripheral arterial disease- Arterial duplex studies showed greater than 75% stenosis of the left proximal femoral artery, disease also present on the right Left foot is ischemic but chronically so, PAD inhibits healing of both feet Vascular surgery consulted 12/19 and did not recommend acute intervention, however, he was in severe pulmonary compromise at that time - will discuss with vascular Acute exacerbation of COPD- Patient did require BiPAP at last visit, however, looks to be doing well with nasal cannula 2 L at this time Continue inhalers and nebulizers As of today may be at his baseline Atrial fibrillation- Continue metoprolol and Xarelto History of alcohol abuse- Does not want to stop drinking. 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 Can stand to transfer but cannot walk. Seems to be multifactorial including leg weakness, wounds, very severe COPD Admission and Anticipated Discharge Date Admission Date: January 09, 2025 Subjective Pain was in right anterior james and has improved since admission Both LE were warm and red with new bullae bilaterally. No recent trauma to feet. Wound on dorsum of R foot is about the same, not really healing Redness of RLE receded from the ED markings Physical Exam 2 Physical Exam: Last 24h vitals reviewed GEN: no acute distress, sitting in bed HEENT: pupils equal, sclerae anicteric, moist MM RESP: increased WOB, extremely poor air movement, no wheeze CV: reg no mrg ABD: soft/nt/nd +BT : no cope EXT: extensive bilateral LE wounds - new flaccid but intact bulla dorsum of L forefoot near base of toes, large ruptured bulla with shallow wound right ankle, right ankle erythema has receded from ED markings. Both LE are martha from the ankle down. Chronic deeper wound dorsum of right foot at least partial thickness base covered by yellow exudate no drainage NEURO: AOx person, place, and situation. Face symmetric, speech normal, moves 4 ext spontaneously and equally Results & Data Results & Data Vital Signs (Past 12 Hours) Vital Signs Temp Pulse Pulse Resp BP BP Pulse Ox 01/10/25 16:10 37.1 C 100 H 18 117/72 96 01/10/25 15:57 99 H 23 85 L 01/10/25 15:00 86 01/10/25 11:15 36.6 C 92 H 18 98/67 L 90 01/10/25 11:00 92 H 16 109/72 91 01/10/25 09:56 102 H 20 90 01/10/25 09:00 01/10/25 08:17 36.6 C 92 H 20 121/71 100 01/10/25 07:03 82 01/10/25 06:48 96 H 20 100 O2 Del Method O2 Flow Rate FiO2 01/10/25 16:10 Nasal Cannula 2 01/10/25 15:57 Room Air 21 01/10/25 15:00 01/10/25 11:15 Room Air 01/10/25 11:00 Nasal Cannula 2 01/10/25 09:56 Room Air 01/10/25 09:00 Nasal Cannula 3 01/10/25 08:17 Nasal Cannula 3 01/10/25 07:03 01/10/25 06:48 Nasal Cannula 5 Laboratory Results 01/10/25 05:20 01/10/25 07:12 PG Care Time/CCT Total # of Minutes Spent Total Time Spent with Patient: Total time spent is greater than 50% in coordination of care (as documented) at patient's floor/unit and/or counseling patient: Coding Level of Care Code 87648 SUB INP/OBS CARE MIN Diagnoses Sepsis A41.9 Cellulitis of both lower extremities L03.115; L03.116 Chronic ulcer of right foot with fat layer exposed L97.512 PAD (peripheral artery disease) I73.9
[2025-01-10] MEDS: VANCOMYCIN HCL / NSS 1,000 MG/270 ML BAG IV SCH (20:16)
[2025-01-10] MEDS: BEER 1 CAN PO ONE (21:56)
[2025-01-11 05:11] LABS: Hematocrit (blood only) 36.4 % (42.0-52.0); Hemoglobin 12.3 g/dl (14.0-18.0); Immature Granulocytes # (auto) 0.03 K/uL (0.01-0.20); Immature Granulocytes % (auto) 0.4 %; Mean Corpuscular Hemoglobin 31.3 pg (25.0-34.0); Mean Corpuscular Volume 92.6 fL (80.0-100.0); Platelet Count 204 K/uL (130-400); RDW Standard Deviation 44.1 fL (36.4-46.3); Red Blood Count 3.93 M/uL (4.70-6.10); White Blood Count 8.17 K/ul (4.8-10.8)
[2025-01-11 05:54] LABS: Anion Gap 8.0 (3-11); Bilirubin,Total 0.5 mg/dl (0.2-1.0); Calcium 8.6 mg/dl (8.6-10.3); Carbon Dioxide 22.0 mmol/L (21-32); Chloride 102.0 mmol/L (98-107); Magnesium 2.1 mg/dl (1.7-2.4); Potassium 3.4 mmol/L (3.5-5.1); Sodium 132.0 mmol/L (136-145)
[2025-01-11 06:00] LABS: Alanine Aminotransferase 12.0 U/L (7-52); Albumin Globulin Ratio 1.1 (0.9-2); Alkaline Phosphatase 66.0 U/L (34-104); Blood Urea Nitrogen 11.0 mg/dl (6-23); Creatinine Clr Calc Pharmacy 95.5 ml/min; Globulin 2.9 gm/dl (2.5-4.0); Glucose 81.0 mg/dl (70-99(Fasting)); Total Protein 6.0 gm/dl (6.0-8.3)
--- NOTE | 2025-01-11 07:58 | Pharmacy Report ---
Pharmacy PK ABX Note - Date of Service January 11, 2025 - Assessment and Plan Assessment 01/11: * Vancomycin level this AM came back at ~17 mcg/ml - current regimen for vancomycin associated with goal AUC/COLTON therefore will continue same dose. Still awaiting finalized cultures 01/10: 64 year old M admitted for bilateral lower extremity cellulitis (R>L) in the setting of chronic ulceration of right foot. Recent admission 12/14/24 - 12/21/24 for Morganella morganii bacteremia 2/2 right foot wound. * R foot MRI showed no evidence of OM during previous admission. * Patient was treated with cefepime IV and transitioned to cefuroxime on discharge. Patient has been started on empiric cefepime + vancomycin IV. Leg and BC x 2 pending. Plan Vancomycin * Continue vancomycin 1 gm iv q 12 hours Cefepime Pharmacy will continue to follow and will adjust dose/frequency as necessary. Thank you. Pharmacy has transitioned to AUC monitoring for vancomycin. AUC/COLTON is the preferred PK/PD target and is associated with decreased risk of nephrotoxicity compared to traditional trough targets.
[2025-01-11] MEDS: REMOVE NICODERM PATCH SCH (08:00)
[2025-01-11] MEDS: VANCOMYCIN LEVEL ONE (08:02)
[2025-01-11] MEDS: BEER 1 CAN PO SCH (14:38)
--- NOTE | 2025-01-11 15:36 | Hospitalist Progress Note ---
Date of Service January 11, 2025 Assessment & Plan (1) Sepsis: (2) Cellulitis of both lower extremities: (3) Chronic ulcer of right foot with fat layer exposed: (4) PAD (peripheral artery disease): Plan The patient is a 64-year-old wheelchair-bound male with with past medical history including PAD, gram-negative bacteremia of right foot wounds due to Morganella with admission from 12/14-12/21/2024, chronic ulceration of right foot, tobacco use, COPD, history of acute on chronic respiratory failure, CHF, chronic venous stasis, alcohol abuse, cardiomyopathy, atrial fibrillation on long-term anticoagulant use. He was admitted with acute and chronic bilateral foot wounds and RLE, possibly LLE cellulitis Sepsis due to bilateral lower extremity cellulitis, right greater than left- Bilateral LE acute and chronic foot wounds Patient has similar presentation that required admission from 12/14-12/21/2024. At that time Morganella bacteremia was found and treated, foot MRI was negative for osteo and abscess. Continue vancomycin IV and cefepime IV begun in ED, may need anaerobic coverage Cultures pinpoint from wound and blood ngtd Consulted wound care RLE cellulitis has improved Peripheral arterial disease- Arterial duplex studies showed greater than 75% stenosis of the left proximal femoral artery, disease also present on the right Left foot is ischemic but chronically so, PAD inhibits healing of both feet Discussed with vascular surgery for consult - Dr. Worley can see Tuesday. Meanwhile advised podiatry consult and CTA of bilateral LE. Podiatry consult a few weeks ago, no debridement recommended and osteo ruled out by MRI Acute exacerbation of COPD- very severe COPD 90% on RA Continue inhalers and nebulizers Seems to be at his baseline Atrial fibrillation- stable Continue metoprolol and Xarelto History of alcohol abuse- Does not want to stop drinking. 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 Can stand to transfer but cannot walk. Seems to be multifactorial including leg weakness, wounds, very severe COPD Admission and Anticipated Discharge Date Admission Date: January 09, 2025 Subjective R leg pain seems a little better Wrapped up with tons of tape currently No withdrawls Dyspnea at rest and at baseline Physical Exam 2 Physical Exam: Last 24h vitals reviewed GEN: no acute distress, sitting in bed HEENT: pupils equal, sclerae anicteric, moist MM RESP: increased WOB, extremely poor air movement, slight ant exp wheeze CV: reg no mrg ABD: soft/nt/nd +BT : no cope EXT: extensive bilateral LE wounds - currently dressed and I couldn't get the tape off. RLE redness above dressing improved. Kneecaps are cool and mottled NEURO: AOx person, place, and situation. Face symmetric, speech normal, moves 4 ext spontaneously and equally Results & Data Results & Data Vital Signs (Past 12 Hours) Vital Signs Temp Pulse Pulse Resp BP Pulse Ox O2 Del Method 01/11/25 14:18 37.2 C 79 20 112/73 90 Room Air 01/11/25 11:36 36.9 C 83 16 102/64 91 Room Air 01/11/25 09:42 84 01/11/25 09:42 Room Air 01/11/25 07:31 37 C 88 16 105/68 93 Room Air 01/11/25 06:50 99 H 19 94 Room Air 01/11/25 03:32 36.5 C 85 16 109/64 94 Nasal Cannula Laboratory Results 01/11/25 04:51 01/11/25 04:51 PG Care Time/CCT Total # of Minutes Spent Total Time Spent with Patient: Total time spent is greater than 50% in coordination of care (as documented) at patient's floor/unit and/or counseling patient: Coding Level of Care Code 76829 SUB INP/OBS CARE 2/35MIN Diagnoses Sepsis A41.9 Cellulitis of both lower extremities L03.115; L03.116 Chronic ulcer of right foot with fat layer exposed L97.512 PAD (peripheral artery disease) I73.9
[2025-01-11] MEDS: ONDANSETRON INJ 2 MG/ML 2 ML VIAL IV PRN (16:07)
[2025-01-11] MEDS: POTASSIUM CHLORIDE CRTAB 20 MEQ TABCR PO ONE (16:07)
[2025-01-11] MEDS: METOCLOPRAMIDE HCL INJ 5 MG/ML 2 ML VIAL IV ONE (20:34)
[2025-01-12 06:54] LABS: Hematocrit (blood only) 38.0 % (42.0-52.0); Hemoglobin 12.7 g/dl (14.0-18.0); Immature Granulocytes # (auto) 0.06 K/uL (0.01-0.20); Immature Granulocytes % (auto) 0.7 %; Mean Corpuscular Hemoglobin 31.5 pg (25.0-34.0); Mean Corpuscular Volume 94.3 fL (80.0-100.0); Platelet Count 236 K/uL (130-400); RDW Standard Deviation 45.8 fL (36.4-46.3); Red Blood Count 4.03 M/uL (4.70-6.10); White Blood Count 8.25 K/ul (4.8-10.8)
[2025-01-12 07:49] LABS: Alanine Aminotransferase 14.0 U/L (7-52); Albumin Globulin Ratio 1.0 (0.9-2); Alkaline Phosphatase 66.0 U/L (34-104); Anion Gap 9.0 (3-11); Bilirubin,Total 0.6 mg/dl (0.2-1.0); Blood Urea Nitrogen 12.0 mg/dl (6-23); Calcium 9.8 mg/dl (8.6-10.3); Carbon Dioxide 29.0 mmol/L (21-32); Chloride 101.0 mmol/L (98-107); Creatinine Clr Calc Pharmacy 87.3 ml/min; Globulin 3.0 gm/dl (2.5-4.0); Glucose 94.0 mg/dl (70-99(Fasting)); Magnesium 2.1 mg/dl (1.7-2.4); Potassium 3.6 mmol/L (3.5-5.1); Sodium 139.0 mmol/L (136-145); Total Protein 6.1 gm/dl (6.0-8.3)
[2025-01-12 14:58] LABS: Hematocrit (blood only) 40.6 % (42.0-52.0); Hemoglobin 14.1 g/dl (14.0-18.0)
[2025-01-12 15:17] LABS: Alanine Aminotransferase 14.0 U/L (7-52); Albumin Globulin Ratio 1.0 (0.9-2); Alkaline Phosphatase 74.0 U/L (34-104); Anion Gap 10.0 (3-11); Bilirubin,Total 0.6 mg/dl (0.2-1.0); Blood Urea Nitrogen 13.0 mg/dl (6-23); Calcium 10.2 mg/dl (8.6-10.3); Carbon Dioxide 30.0 mmol/L (21-32); Chloride 100.0 mmol/L (98-107); Creatinine Clr Calc Pharmacy 93.0 ml/min; Globulin 3.3 gm/dl (2.5-4.0); Glucose 110.0 mg/dl (70-99(Fasting)); Lipase 3.0 U/L (11-82); Potassium 4.0 mmol/L (3.5-5.1); Sodium 140.0 mmol/L (136-145); Total Protein 6.7 gm/dl (6.0-8.3)
[2025-01-12] MEDS: POLYETHYLENE (MIRALAX) 17 GM PACK PO SCH (15:38)
[2025-01-12] MEDS: SENNA 8.6 MG TAB PO SCH (15:38)
[2025-01-12] MEDS: PROCHLORPERAZINE 5 MG in SYRINGE 4 ML IV PRN (15:39)
--- NOTE | 2025-01-12 16:11 | XRay Report ---
Abdominal radiograph, one view History: Abdominal pain Comparison: 10/06/2020 Findings: Single AP view of the abdomen performed. Several dilated loops of small bowel are seen. A loop in the right abdomen measures up to 3.7 cm in diameter No pneumatosis or portal venous gas. No abnormal calcifications project over the abdomen. No acute abnormality of the bony structures. Impression: Several dilated loops of small bowel. Obstruction is not excluded. Electronically signed by Hayes Zamudio 01-12-2025 4:10 PM
--- NOTE | 2025-01-12 17:10 | Hospitalist Progress Note ---
Date of Service January 12, 2025 Assessment & Plan (1) Sepsis: (2) Cellulitis of both lower extremities: (3) Chronic ulcer of right foot with fat layer exposed: (4) PAD (peripheral artery disease): Plan The patient is a 64-year-old wheelchair-bound male with with past medical history including PAD, gram-negative bacteremia of right foot wounds due to Morganella with admission from 12/14-12/21/2024, chronic ulceration of right foot, tobacco use, COPD, history of acute on chronic respiratory failure, CHF, chronic venous stasis, alcohol abuse, cardiomyopathy, atrial fibrillation on long-term anticoagulant use. He was admitted with acute and chronic bilateral foot wounds and RLE, possibly LLE cellulitis Intractable vomiting - started this AM -stat labs reassuring as above but KUB dilated loops sm bowel -not suspicious for significant GI bleed -obtain stat CT abd/pelvis with IV contrast eval for possible bowel obstruction. also at risk for bowel ischemia because of severe vascular disease, normal lactate somewhat reassuring -npo x sips/chips and meds -ordered maintenance IVF -AM CBC BMP mag Sepsis due to bilateral lower extremity cellulitis, right greater than left- Bilateral LE acute and chronic foot wounds Patient has similar presentation that required admission from 12/14-12/21/2024. At that time Morganella bacteremia was found and treated, foot MRI was negative for osteo and abscess. Wound culture polymicrobial - no MRSA and all orgs sens to cefepime, blood ngtd - stop vancomycin and continue cefepime Consulted wound care RLE cellulitis has continued to improve. Chronic BLE ruddiness from vascular disease Peripheral arterial disease- Arterial duplex studies showed greater than 75% stenosis of the left proximal femoral artery, disease also present on the right Left foot is ischemic but chronically so, PAD inhibits healing of both feet Discussed with vascular surgery for consult - Dr. Worley can see Tuesday. Meanwhile advised podiatry consult and CTA of bilateral LE. Podiatry consult a few weeks ago, no debridement recommended and osteo ruled out by MRI CTA LE tomorrow Acute exacerbation of COPD- mild exacerbation resolved, very severe COPD 92% on RA Continue inhalers and nebulizers Seems to be at his baseline Atrial fibrillation- stable Continue metoprolol and Xarelto History of alcohol abuse- Does not want to stop drinking. 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 Monitor BMP - 140 normal today hypokalemia - replaced po. 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 Can stand to transfer but cannot walk. Seems to be multifactorial including leg weakness, wounds, very severe COPD DVT ppx - on DOAC Admission and Anticipated Discharge Date Admission Date: January 09, 2025 Subjective Today having nausea and multiple emesis, not abdominal pain per se Did not even drink his morning beer Emesis has been brown Physical Exam 2 Physical Exam: Last 24h vitals reviewed GEN: looks uncomfortable and having dry heave HEENT: pupils equal, sclerae anicteric, moist MM RESP: increased WOB, extremely poor air movement, unchanged CV: reg no mrg ABD: protruberant but seems same, NT, +BT : no cope EXT: extensive bilateral LE wounds - removed dressings - RLE extensive shallow wound around ankle, surrounding induration/erethema improved but still present. Wound on dorsum foot unchanged no surrounding cellulitis. L foot probably no cellulitis. Ruddiness from vascular disease, wounds on heel toes covered in aquacel. Large bulla on dorsum intact mostly has drained. NEURO: AOx person, place, and situation. Face symmetric, speech normal, moves 4 ext spontaneously and equally Results & Data Results & Data Vital Signs (Past 12 Hours) Vital Signs Temp Pulse Pulse Resp BP Pulse Ox O2 Del Method 01/12/25 15:59 36.7 C 99 H 18 138/72 92 Room Air 01/12/25 13:37 88 01/12/25 11:14 36.7 C 94 H 18 121/82 94 Room Air 01/12/25 08:19 36.8 C 90 18 117/78 93 Room Air 01/12/25 08:00 Nasal Cannula 01/12/25 07:26 85 01/12/25 07:14 92 H 20 99 Nasal Cannula 01/12/25 07:10 92 H 20 99 Nasal Cannula O2 Flow Rate 01/12/25 15:59 01/12/25 13:37 01/12/25 11:14 01/12/25 08:19 01/12/25 08:00 3 01/12/25 07:26 01/12/25 07:14 3 01/12/25 07:10 3 Laboratory Results 01/12/25 14:42 01/12/25 14:42 Got stat labs in afternoon for ongoing emesis Type & Screen H/H stable looks more hemoconcentrated lactate normal <2 CMP unremarkable and lipase 3 stat KUB - film unavailable to review - per radiologist dilated loops of sm bowel can't r/o obstruction PG Care Time/CCT Total # of Minutes Spent Total Time Spent with Patient: Total time spent is greater than 50% in coordination of care (as documented) at patient's floor/unit and/or counseling patient: Coding Level of Care Code 33012 SUB INP/OBS CARE 3/50MIN Diagnoses Sepsis A41.9 Cellulitis of both lower extremities L03.115; L03.116 Chronic ulcer of right foot with fat layer exposed L97.512 PAD (peripheral artery disease) I73.9
[2025-01-12] MEDS: D5W AND 1/2NSS + 20MEQ KCL 20 MEQ/1,000 ML BAG IV SCH (18:31)
[2025-01-12] MEDS: OPTIRAY 320 100ml IV ONE (20:33)
--- NOTE | 2025-01-13 01:51 | CT Scan Report ---
Exam(s): CT ABDOMEN + PELVIS With Contrast Oral - High Density Amt: gastro, IV Amt: 93 ml opti 320 EXAM: CT Abdomen and Pelvis With Intravenous Contrast CLINICAL HISTORY: Abdominal Pain with nausea and vomiting TECHNIQUE: Axial computed tomography images of the abdomen and pelvis with intravenous contrast. CTDI is 20.43 mGy and DLP is 963.63 mGy-cm. Automated exposure control was utilized for the study. A dose lowering technique was utilized adhering to the principles of ALARA. CONTRAST: Patient received gastro of Oral - High Density and 93 ml opti 320 of IV contrast COMPARISON: CT abdomen and pelvis 08/31/2019 FINDINGS: Lung bases: Unremarkable. No mass. No consolidation. Pleural space: Trace right pleural effusion. ABDOMEN: Liver: Unremarkable. No mass. Gallbladder and bile ducts: Unremarkable. No calcified stones. No ductal dilation. Pancreas: Unremarkable. No mass. No ductal dilation. Spleen: Unremarkable. No splenomegaly. Adrenals: Unremarkable. No mass. Kidneys and ureters: Suspect punctate nonobstructing right renal calculus. No hydronephrosis of either kidney. Simple appear left renal cyst is present, no follow up is needed. The kidneys are otherwise unremarkable. Stomach and bowel: Small-bowel obstruction with a transition point in the right lower quadrant. There are bilateral inguinal hernias, the right contains decompressed loops of small bowel and the left contains a small amount of fluid without bowel in the left hernia. No mucosal thickening. PELVIS: Appendix: No findings to suggest acute appendicitis. Bladder: Bladder calculi are present. No mass. Reproductive: Nonspecific prostate gland enlargement. ABDOMEN and PELVIS: Intraperitoneal space: Minimal free fluid in the pelvis is nonspecific. No free air. Bones/joints: Age-indeterminate severe L2 compression fracture with 5 mm of retropulsion resulting in mild spinal canal stenosis. Slightly worsened moderate L4 compression fracture. There is a right hip prosthesis. Avascular necrosis of the left femoral head. No dislocation. Soft tissues: Unremarkable. Vasculature: Moderate atherosclerosis. No aneurysm. Lymph nodes: Unremarkable. No enlarged lymph nodes. IMPRESSION: 1. Small-bowel obstruction with a transition point in the right lower quadrant. 2. There are bilateral inguinal hernias, the right contains decompressed loops of small bowel and the left contains a small amount of fluid without bowel in the left hernia. 3. Suspect punctate nonobstructing right renal calculus. No hydronephrosis of either kidney. 4. Age-indeterminate severe L2 compression fracture with 5 mm of retropulsion resulting in mild spinal canal stenosis. 5. Slightly worsened moderate L4 compression fracture. 6. Nonspecific prostate gland enlargement. 7. Bladder calculi are present. 8. Minimal free fluid in the pelvis is nonspecific. 9. Avascular necrosis of the left femoral head. 10. Trace right pleural effusion. Electronically signed by: Alejandra Beltran MD 01/13/25 01:50 AM
[2025-01-13 06:39] LABS: Hematocrit (blood only) 37.5 % (42.0-52.0); Hemoglobin 12.9 g/dl (14.0-18.0); Mean Corpuscular Hemoglobin 32.1 pg (25.0-34.0); Mean Corpuscular Volume 93.3 fL (80.0-100.0); Platelet Count 281 K/uL (130-400); RDW Standard Deviation 45.7 fL (36.4-46.3); Red Blood Count 4.02 M/uL (4.70-6.10); White Blood Count 10.28 K/ul (4.8-10.8)
[2025-01-13 07:24] LABS: Blood Urea Nitrogen 13 mg/dl (6-23); Calcium 9.7 mg/dl (8.6-10.3); Carbon Dioxide 35 mmol/L (21-32); Chloride 98 mmol/L (98-107); Creatinine Clr Calc Pharmacy 87.3 ml/min; Glucose 168 mg/dl (70-99(Fasting))
--- NOTE | 2025-01-13 07:34 | XRay Report ---
EXAM: XR chest 1V portable CLINICAL HISTORY: NG tube placement confirmation. TECHNIQUE: An X-ray image of the chest is obtained in AP projection. COMPARISON: 01/09/2025 CR. FINDINGS: New NG tube placement reaching below left hemidiaphragm with its tip about 9.5cm from the gastroesophageal junction (ideally should be 10cm from junction, 1-2cm advancement preferable). Pulmonary Parenchyma: Included base of lungs show no evidence of consolidation, collapse, or focal opacities. No pulmonary nodules are identified. No evidence of pleural effusion or pleural thickening. Heart and Mediastinum: Heart size and shape are normal. No mediastinal widening or masses. No hilar or mediastinal lymphadenopathy. Bony Thorax: Bony thorax appears intact without fractures or deformities. Soft Tissues: Soft tissues overlying the chest wall are unremarkable. IMPRESSION: New NG tube placement reaching below left hemidiaphragm with its tip about 9.5cm from the gastroesophageal junction (ideally should be 10cm from junction, 1-2cm advancement preferable). Electronically signed by Denny Lui 01-13-2025 07:33 AM
[2025-01-13 08:11] LABS: Magnesium 2.1 mg/dl (1.7-2.4); Potassium 3.9 mmol/L (3.5-5.1); Sodium 142.0 mmol/L (136-145)
--- NOTE | 2025-01-13 09:17 | Surgery Consultation ---
Date of Consultation January 13, 2025 Assessment & Plan (1) SBO (small bowel obstruction): Plan 64M with PMHx as stated in HPI now with SBO developed during admission for sepsis due to LE wounds. NGT in place. No acute surgical intervention. Continue NGT decompression NPO, IVF and other medical management Mobilize as much as possible History of Present Illness Attending Physician: Salome Tesfaye MD History of Present Illness 64-year-old wheelchair-bound male with with past medical history including PAD, gram-negative bacteremia of right foot wounds due to Morganella with admission from 12/14-12/21/2024, chronic ulceration of right foot, tobacco use, COPD, history of acute on chronic respiratory failure, CHF, chronic venous stasis, alcohol abuse, cardiomyopathy, atrial fibrillation on long-term anticoagulant use. He presented to the emergency department with a recurrence of open wounds of right lower extremity and has been admitted on 01/09/25 with sepsis due to wounds. During his hospital stay, he developed abdominal pain, N/V. A CT A/P obtained on 01/12/25 revealed SBO with transition zone in the RLQ, distended small bowel loops proximal to this point and significantly distended stomach. Incidentally seen on CT is a fat containing umbilical hernia, a right inguinal hernia containing distal, collapsed and non-obstructed bowel and a left inguinal hernia containing fluid/fat, He has a PSHx of open appendectomy for a perforated appendix followed by 2 abdominal explorations for unexplained masses after the appendectomy. The first exploration was a week after the appendectomy. Had a right hip replacement. A surgical consult has been requested. This am he states he feels better compared to yesterday. He feels he has less nausea and has no abdominal pain this am. He states he is not yet passing gas. Allergies Allergy/AdvReac Type Severity Reaction Status Date / Time erythromycin base Allergy Intermediate hives or Verified 12/14/24 17:58 diarrhea Penicillins Allergy Intermediate hives or Verified 12/14/24 17:58 diarrhea NITRATES IN PROCESSED MEATS Allergy Severe Difficulty Uncoded 12/14/24 17:58 Breathing Home Medications Medication Instructions Recorded Confirmed Type cetirizine 10 mg tablet 10 mg PO DAILY PRN Allergy Symptoms 12/29/18 01/09/25 History multivitamin (Daily-Deanne tablet) 1 tab PO DAILY 07/20/20 01/09/25 History ibuprofen 200 mg capsule 400 mg PO Q6H PRN Pain 06/24/22 01/09/25 History magnesium 250 mg tablet 250 mg PO DAILY 09/16/22 01/09/25 History nebulizers #1 ea 12/23/22 01/09/25 Rx guaifenesin 600 mg tablet, 600 mg PO BID PRN congestion #60 01/28/23 01/09/25 Rx extended release 12 hr (Mucinex) tabs albuterol sulfate 1.25 mg/3 mL 1.25 mg (3 mL) inhalation QID PRN 03/31/23 01/09/25 Rx solution for nebulization shortness of breath or wheezing #360 mL potassium chloride 10 mEq 10 meq PO DAILY #90 tabs 06/08/24 01/09/25 Rx tablet,extended release (Klor-Con) rivaroxaban 10 mg tablet (Xarelto) 10 mg PO QPM #90 tabs 06/27/24 01/09/25 Rx metoprolol succinate 50 mg 50 mg PO DAILY #90 tabs 10/19/24 01/09/25 Rx tablet,extended release 24 hr bupropion HCl 150 mg tablet,12 hr 150 mg PO BID #60 ea 11/08/24 01/09/25 Rx sustained-release (Wellbutrin SR) albuterol sulfate 90 mcg/actuation 2 puff inhalation Q4H PRN 11/26/24 01/09/25 Rx aerosol inhaler (Ventolin HFA) Shortness Of Breath Or Wheezing #18 grams budesonide 0.5 mg/2 mL suspension 0.25 mg inhalation BID #60 mL 12/21/24 01/09/25 Rx for nebulization furosemide 20 mg tablet (Lasix) 20 mg PO BID edema #120 tabs 12/28/24 01/09/25 Rx oxycodone-acetaminophen 10 mg-325 1 tab PO Q6H PRN pain #60 tabs 01/09/25 01/09/25 Rx mg tablet (Percocet) Patient History Medical History Back pain HX L2 FRACTURE>HEALED Leg cramps AT NIGHT Congestive heart failure Atrial fibrillation FOLLOWED BY [facility] COPD (chronic obstructive pulmonary disease) Surgical History History of total hip arthroplasty RT H/O abdominal surgery X 2 ? EXPLORATORY>[facility]ART[facility] TAO, ABDOMINAL BENIGN MASS REMOVED A CHILD History of tonsillectomy History of tooth extraction Hx of appendectomy Family History Father Hairy cell leukemia Myocardial infarction Colorectal cancer Mother Multiple myeloma Other No family history of adverse response to anesthesia Denies family history of Ovarian cancer Prostate cancer Breast cancer Social History Smoking Status: Current every day smoker Tobacco Type: Cigarettes Age Started Using Tobacco: 16; packs per day: 1; Cigarettes Per Day: 30; Second Hand Exposure: Yes; Do You Dip or Chew Tobacco: No; Hx Alcohol Use: Yes Alcohol type: beer Alcohol Intake Frequency: 4 or More x per/Week Alcohol Intake Frequency Comment: 36-48 ounces of beer a day Hx Substance Use: No Preferred Language: Malay Communication Ability: Effective 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 Beliefs That Will Affect Care: None marital status: marital status details: no children Current Living Situation: Spouse Current Living Situation Comment: lives in [place] by himself current occupational status: disabled other: 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 Feels Safe at Home: Yes caffeine: Yes Dental Care, Regularly: No Physical Activity Frequency: Does not Exercise Seatbelt Use: always Sunscreen Use: No Assistive Devices: Glasses, Walker and Wheelchair Review of Systems Constitutional: no fever, no chills, no sweats and no body aches Respiratory: no cough, no chest congestion, no dyspnea and no pain on inspiration Cardiovascular: no chest pain, no palpitations, no lightheadedness and no syncope Gastrointestinal: + nausea and + vomiting; no abdominal pa in Physical Exam Constitutional: + ill appearing; + not healthy appearing , not in distress and not diaphoretic Respiratory: normal respiratory effort; no respiratory distress, no labored breathing and does not use accessory muscles Gastrointestinal (Abdomen): non obstructing umbilical hernia non tender to palpation, reducible non obstructing b/l inguinal hernias non tender to palpation, reducible healed widened surgical scar right paramedian and a lower left vertical scar protuberant softly distended Nontender to palpation Skin: No edema wrapped lower legs to feet evidence for cellulitis noted above dressings Results & Data Vital Signs (Past 12 Hours) Vital Signs Temp Pulse Pulse Resp BP Pulse Ox O2 Del Method 01/13/25 08:02 36.3 C L 103 H 16 114/75 95 Nasal Cannula 01/13/25 07:26 111 H 01/13/25 07:16 108 H 20 96 Nasal Cannula 01/13/25 07:12 118 H 20 88 L Room Air 01/13/25 03:18 36.7 C 106 H 20 123/84 92 Room Air 01/12/25 23:33 36.5 C 116 H 20 122/89 92 Room Air 01/12/25 23:16 Room Air 01/12/25 22:11 108 H O2 Flow Rate 01/13/25 08:02 2 01/13/25 07:26 01/13/25 07:16 2 01/13/25 07:12 01/13/25 03:18 01/12/25 23:33 01/12/25 23:16 01/12/25 22:11 Diagnostic Findings I personally reviewed his CT A/P from yesterday. He has multiple hernias, small umbilical containing fat, b/l inguinals. The right inguinal contains non-obstructed distal bowel and the left contains some fluid and fat. Dilated SB proximal to groin hernias and stomach. Results Complete Blood Count Results: RBC 4.02 M/uL (4.70-6.10) L 01/13/25 WBC 10.28 K/ul (4.8-10.8) 01/13/25 Hgb 12.9 g/dl (14.0-18.0) L 01/13/25 Hct 37.5 % (42.0-52.0) L 01/13/25 Plt Count 281 K/uL (130-400) 01/13/25 Results CMP Results: 2 Sodium 142 mmol/L (136-145) 01/13/25 Potassium 3.9 mmol/L (3.5-5.1) 01/13/25 Chloride 98 mmol/L (98-107) 01/13/25 Carbon Dioxide 35 mmol/L (21-32) H 01/13/25 Anion Gap TNP 01/13/25 BUN 13 mg/dl (6-23) 01/13/25 Creatinine 0.81 mg/dl (0.6-1.4) 01/13/25 eGFR 99.07 01/13/25 Est GFR ( Amer) 102.3 ml/min 04/29/23 Est GFR (Non-Af Amer) 88.3 ml/min 04/29/23 BUN/Creatinine Ratio 16.0 (10-20) 01/13/25 Glucose 168 mg/dl (70-99(Fasting)) H 01/13/25 Calcium 9.7 mg/dl (8.6-10.3) 01/13/25 Phosphorus 3.0 mg/dl (2.5-4.9) 09/02/19 Total Bilirubin 0.6 mg/dl (0.2-1.0) 01/12/25 Direct Bilirubin < 0.1 mg/dl (0-0.2) 02/12/19 AST 18 U/L (13-39) 01/12/25 ALT 14 U/L (7-52) 01/12/25 Alkaline Phosphatase 74 U/L (34-104) 01/12/25 Total Protein 6.7 gm/dl (6.0-8.3) 01/12/25 Albumin 3.4 gm/dl (3.4-5.0) 01/12/25 Globulin 3.3 gm/dl (2.5-4.0) 01/12/25 Albumin/Globulin Ratio 1.0 (0.9-2) 01/12/25 Lactate Dehydrogenase 275 U/L (87-241) H 01/03/19 PG Care Time/CCT Total # of Minutes Spent Total Time Spent with Patient: Total time spent is greater than 50% in coordination of care (as documented) at patient's floor/unit and/or counseling patient: Coding Level of Care Code 32036 INT INP/OBS CARE 1/40MIN Diagnoses SBO (small bowel obstruction) K56.609
--- NOTE | 2025-01-13 10:25 | XRay Report ---
KUB CLINICAL HISTORY: Small bowel obstruction. Vomiting. FINDINGS: An AP, portable, supine abdominal radiograph is compared to abdominal x-ray and CT dated . An enteric tube is in place. The tip projects below the diaphragm over the gastric fundus. T here are distended and gas-filled loops of small bowel indicating persistent obstruction. Bowel loops measure up to 4.5 cm in diameter. No evidence of intraperitoneal free air is seen on this supine jose ramon ge. There are no abnormal abdominal calcifications. The bladder is filled with excreted IV contrast. Pelvic phleboliths are again noted. The skeletal structures are osteopenic and appear intact. A right hip arthroplasty is in place. IMPRESSION: 1. An enteric tube is in place as above. 2. Persistent high-grade small bowel obstruction. Electronically signed by: Dru Akbar M.D. 01/13/2025 10:23 AM
[2025-01-13] MEDS: METOPROLOL TARTRATE 1 MG/ML VIAL IV SCH (12:12)
[2025-01-13] MEDS: THIAMINE HCL 100 MG in SYRINGE 9 ML IV SCH (12:54)
--- NOTE | 2025-01-13 14:05 | Hospitalist Progress Note ---
Date of Service January 13, 2025 Assessment & Plan (1) Sepsis: (2) Cellulitis of both lower extremities: (3) Chronic ulcer of right foot with fat layer exposed: (4) PAD (peripheral artery disease): (5) SBO (small bowel obstruction): Plan The patient is a 64-year-old wheelchair-bound male with with past medical history including PAD, gram-negative bacteremia of right foot wounds due to Morganella with admission from 12/14-12/21/2024, chronic ulceration of right foot, tobacco use, COPD, history of acute on chronic respiratory failure, CHF, chronic venous stasis, alcohol abuse, cardiomyopathy, atrial fibrillation on long-term anticoagulant use. He was admitted with acute and chronic bilateral foot wounds and RLE, possibly LLE cellulitis Acute small bowel obstruction - developed on 01/12. Confirmed by CT overnight and NG tube placed. Reviewed CT films -exam and symptoms improving after NG placement -consulted Dr. Santos - discussed with her - hernias reducible and not causing the obstruction, probably adhesions related to prior appendectomy and subsequent surgeries in the area -continue conservative care with NG to LIS, IV fluids, IV antiemetics -today sodium wnl, K/mag normal, WBC 10 -daily AM CBC BMP mag -high risk of respiratory failure if he develops a complicating aspiration pneumonia or distention compromises his breathing, high risk surgical candidate because of his severe lung disease - highly likely unable to be extubated and would require trach. Also severe diffuse vascular disease Sepsis due to bilateral lower extremity cellulitis, right greater than left- sepsis resolved Bilateral LE acute and chronic foot wounds similar presentation that required admission from 12/14-12/21/2024. At that time Morganella bacteremia was found and treated, foot MRI was negative for osteo and abscess. Wound culture polymicrobial - no MRSA and all orgs sens to cefepime -continue Consulted wound care RLE cellulitis has continued to improve. Chronic BLE ruddiness from vascular disease Peripheral arterial disease- Arterial duplex studies showed greater than 75% stenosis of the left proximal femoral artery, disease also present on the right Left foot is ischemic but chronically so, PAD inhibits healing of both feet Discussed with vascular surgery for consult - Dr. Worley can see Tuesday. Meanwhile advised podiatry consult and CTA of bilateral LE. Podiatry consult a few weeks ago, no debridement recommended and osteo ruled out by MRI CTA LE - holding off at the moment because of acute SBO and clinical instability Acute exacerbation of COPD- mild exacerbation resolved, endstage COPD and FEV1 is around 0.5 92% on RA Continue inhalers and nebulizers. Has been refusing his maintenance inhalers Seems to be at his baseline Atrial fibrillation- stable Continue metoprolol and Xarelto History of alcohol abuse- Does not want to stop drinking. 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 Monitor BMP - 142 normal today hypokalemia - replaced po. 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 Can stand to transfer but cannot walk. Seems to be multifactorial including leg weakness, wounds, very severe COPD DVT ppx - on DOAC Admission and Anticipated Discharge Date Admission Date: January 09, 2025 Subjective 750 out with MG placement then none for awhile Had emesis around NG tube this am Later in AM 1000 more out and abdominal pain and nausea improved Dyspnea is at baseline Physical Exam 2 Physical Exam: Last 24h vitals reviewed GEN: looks uncomfortable and just vomited around NG HEENT: pupils equal, sclerae anicteric, moist MM RESP: increased WOB, extremely poor air movement, unchanged - at baseline CV: reg no mrg distant ABD: distended in AM, less so midday, TTP without rrg. umbilical hernia and bilateral inguinal hernias : no cope EXT: extensive bilateral LE wounds -dressed today NEURO: AOx person, place, and situation. Face symmetric, speech normal, moves 4 ext spontaneously and equally Results & Data Results & Data Vital Signs (Past 12 Hours) Vital Signs Temp Pulse Pulse Resp BP BP Pulse Ox 01/13/25 13:01 01/13/25 12:12 100 H 116/79 01/13/25 11:11 36.5 C 110 H 20 116/79 92 01/13/25 08:02 36.3 C L 103 H 16 114/75 95 01/13/25 08:00 01/13/25 07:26 111 H 01/13/25 07:16 108 H 20 96 01/13/25 07:12 118 H 20 88 L 01/13/25 03:18 36.7 C 106 H 20 123/84 92 O2 Del Method O2 Flow Rate 01/13/25 13:01 Room Air 01/13/25 12:12 01/13/25 11:11 Nasal Cannula 2 01/13/25 08:02 Nasal Cannula 2 01/13/25 08:00 Room Air 01/13/25 07:26 01/13/25 07:16 Nasal Cannula 2 01/13/25 07:12 Room Air 01/13/25 03:18 Room Air Laboratory Results 01/13/25 05:42 01/13/25 07:39 PG Care Time/CCT Total # of Minutes Spent Total Time Spent with Patient: Total time spent is greater than 50% in coordination of care (as documented) at patient's floor/unit and/or counseling patient: Coding Level of Care Code 87964 SUB INP/OBS CARE 3/50MIN Diagnoses Sepsis A41.9 Cellulitis of both lower extremities L03.115; L03.116 Chronic ulcer of right foot with fat layer exposed L97.512 PAD (peripheral artery disease) I73.9 SBO (small bowel obstruction) K56.609
--- NOTE | 2025-01-13 23:32 | XRay Report ---
Exam(s): XR CXR 1 VIEW EXAM: XR Chest, 1 View CLINICAL HISTORY: Check NG tube placement - advanced tube 2cm. TECHNIQUE: Frontal view of the chest. COMPARISON: Chest radiograph 01/13/2025 FINDINGS: Lungs: Unremarkable. No consolidation. Pleural space: Unremarkable. No pneumothorax. Heart: Unremarkable. No cardiomegaly. Mediastinum: Unremarkable. Normal mediastinal contour. Bones/joints: No acute fracture. Tubes, lines and devices: A nasogastric tube courses below the diaphragm with the tip and side port overlying the stomach. Upper abdomen: Gaseous distended loops of small bowel is concerning for obstruction. IMPRESSION: 1. A nasogastric tube courses below the diaphragm with the tip and side port overlying the stomach. 2. Gaseous distended loops of small bowel is concerning for obstruction. Electronically signed by: Alejandra Beltran MD 01/13/25 23:31 PM
[2025-01-14] MEDS: ACETAMINOPHEN 1,000 MG/100 ML VIAL IV PRN (00:19)
--- NOTE | 2025-01-14 00:39 | XRay Report ---
Exam(s): XR CXR 1 VIEW EXAM: XR Chest, 1 View CLINICAL HISTORY: Check NG tube placement - patient dislodged. TECHNIQUE: Frontal view of the chest. COMPARISON: Chest radiograph 01/13/2025 FINDINGS: Lungs: Unremarkable. No consolidation. Pleural space: Unremarkable. No pneumothorax. Heart: Unremarkable. No cardiomegaly. Mediastinum: Unremarkable. Normal mediastinal contour. Bones/joints: No acute fracture. Tubes, lines and devices: A nasogastric tube courses below the diaphragm with the tip and side port overlying the stomach. Upper abdomen: Gaseous distended loops of small bowel are concerning for obstruction. IMPRESSION: 1. A nasogastric tube courses below the diaphragm with the tip and side port overlying the stomach. 2. Gaseous distended loops of small bowel are concerning for obstruction. Electronically signed by: Alejandra Beltran MD 01/14/25 00:38 AM
[2025-01-14 07:12] LABS: Hematocrit (blood only) 36.4 % (42.0-52.0); Hemoglobin 12.0 g/dl (14.0-18.0); Mean Corpuscular Hemoglobin 31.7 pg (25.0-34.0); Mean Corpuscular Volume 96.3 fL (80.0-100.0); Platelet Count 260 K/uL (130-400); RDW Standard Deviation 47.8 fL (36.4-46.3); Red Blood Count 3.78 M/uL (4.70-6.10); White Blood Count 7.98 K/ul (4.8-10.8)
[2025-01-14 07:14] LABS: Anion Gap 6.0 (3-11); Blood Urea Nitrogen 10.0 mg/dl (6-23); Calcium 9.2 mg/dl (8.6-10.3); Carbon Dioxide 45.0 mmol/L (21-32); Chloride 93.0 mmol/L (98-107); Creatinine Clr Calc Pharmacy 88.4 ml/min; Glucose 152.0 mg/dl (70-99(Fasting)); Magnesium 2.2 mg/dl (1.7-2.4); Potassium 3.4 mmol/L (3.5-5.1); Sodium 144.0 mmol/L (136-145)
--- NOTE | 2025-01-14 07:43 | XRay Report ---
EXAM: XR chest 1V portable CLINICAL HISTORY: Patient removed NG tube- new tube placed. TECHNIQUE: An X-ray image of the chest is obtained in AP projection. COMPARISON: 01/13/2025. FINDINGS: NG tube placement reaching below the left hemidiaphragm with its tip at the stomach. Pulmonary Parenchyma: Atelectatic band in the right upper lung zone. Otherwise, lungs show no evidence of consolidation, collapse, or focal opacities. No pulmonary nodules are identified. No evidence of pleural effusion or pleural thickening. Heart and Mediastinum: Heart size and shape are normal. No mediastinal widening or masses. No hilar or mediastinal lymphadenopathy. Bony Thorax: Bony thorax appears intact without fractures or deformities. Soft Tissues: Soft tissues overlying the chest wall are unremarkable. IMPRESSION: 1. The nasogastric tube is in the proper position with its tip terminating in the stomach. 2. No acute cardiopulmonary abnormality. 3. Atelectatic band in the right upper lung zone. 4. No other significant changes compared to the prior study, dated 01/13/2025 Electronically signed by Denny Lui 01-14-2025 07:43 AM
[2025-01-14] MEDS: POTASSIUM CHLORIDE / WTR 10 MEQ/100 ML PLCT IV ONE (10:38)
[2025-01-14] MEDS: ALBUT/IPRATROP 3MG/0.5MG NEB 3 ML VIAL NEB SCH (11:05)
--- NOTE | 2025-01-14 11:57 | Surgery Progress Note ---
Date of Service January 14, 2025 Assessment & Plan (1) SBO (small bowel obstruction): Plan: pt w/ multiple medical problems and multiple surgeries we are following along for sbo ngt in place- >1liter out last 12 hours no flatus/bm thus far. pain and nausea is improving continue NGT until meaningful return of bowel function Admission and Anticipated Discharge Date Admission Date: January 09, 2025 Supervising Physician Co-Signing Physician Notes I have seen and examined this patient this am. I agree with this plan. Dr. Hudson will continue surgical follow up tomorrow. Subjective patient denies much pain or any return of bowel function. no nausea/vomiting. Physical Exam Physical Exam: awake, no distress Respiratory: normal respiratory effort Gastrointestinal (Abdomen): Percussion/Palpation: abdomen soft; abdomen nontender Results & Data Vital Signs (Past 12 Hours) Vital Signs Temp Pulse Pulse Resp BP BP Pulse Ox 01/14/25 11:05 103 H 18 90 01/14/25 10:39 98.6 F 107 H 20 117/75 97 01/14/25 08:00 01/14/25 07:46 98.2 F 99 H 22 110/71 99 01/14/25 07:01 87 20 93 01/14/25 05:41 95 H 111/76 01/14/25 05:40 111/76 01/14/25 02:32 98.1 F 102 H 18 111/72 90 01/14/25 00:19 97 H 106/68 01/14/25 00:18 97 H 106/68 O2 Del Method O2 Flow Rate 01/14/25 11:05 Nasal Cannula 0.5 01/14/25 10:39 Room Air 01/14/25 08:00 Nasal Cannula 0.5 01/14/25 07:46 Room Air 01/14/25 07:01 Nasal Cannula 0.5 01/14/25 05:41 01/14/25 05:40 01/14/25 02:32 Room Air 01/14/25 00:19 01/14/25 00:18 PG Care Time/CCT Total # of Minutes Spent Total Time Spent with Patient: Total time spent is greater than 50% in coordination of care (as documented) at patient's floor/unit and/or counseling patient: Coding Level of Care Code 24137 SUB INP/OBS CARE 06/16MIN Diagnoses SBO (small bowel obstruction) K54.207
--- NOTE | 2025-01-14 12:42 | Palliative Care Consultation ---
Date of Consultation January 14, 2025 Assessment & Plan (1) Palliative care by specialist: Met with pt at bedside, no visitors present. Introduced Palliative Medicine and explained our role in advanced care planning, symptom management and navigation through the progression of life limiting disease. Patient was receptive to palliative services for goals of care discussions. Reviewed we are different from hospice, a home health nurse visiting service. (2) Counseling regarding goals of care: Met with pt, no visitors present. ACP discussion held for 32 minutes. Pt states that his visits in the evenings after 6pm and declines offer to bring his into conversation via phone. Discussed pt's medical history, HPI, admission course and overall health. Pt states that his health and quality of life in general have been on the decline since his femur fracture 5yrs ago. He c/o progressive problems with ambulation and increased dependence on his for ADLs. He shared that he is completely dependent on her for iADLs and mostly dependent for ADLs. He still feeds himself independently but she prepares meals and assists him with bathing and dressing. He shared frustration with the non healing sores on BLE which have him wheelchair bound of late. He shared that he does enjoy watching TV, but is frustrated with his declining vision not allowing him to read. He was an avid reader prior. He shared that Dr Tesfaye and amanda had long discussions with him yesterday about his general health and prognosis. 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 He shared that he does not ever wish to be placed on a ventilator for any reason, out of concern for ventilator dependence given his advanced COPD. Pt verbalized clearly established goals and requests DNR/DNI. He shared that he would like all measures to optimize his health to continue, however if he ever requires any intervention that would involve mechanical ventilation he would wish to have a longer [facility] discussion with his present. He does understand that given his limited mobility, and comorbidities, and overall health he is at high risk for additional decubiti and delayed/failed wound healing. He stated that he wants to "give it a shot" fpr anything that might improve his overall health and offer increased mobility. He shared that he would even be okay with "cutting my feet clean off, as long as I don't need to be on machines to do it". Plan DNR/DNI, continue to optimize health otherwise. Thank you for including Palliative Care in the management of this patient. Please call with any questions or concerns regarding this consultation. History of Present Illness Reason for Consultation: goals of care Requesting Physician: Salome Tesfaye MD Attending Physician: Salome Tesfaye MD History of Present Illness Mr. Castillo is 64-year-old wheelchair-bound male with with past medical history including PAD, gram-negative bacteremia of right foot wounds due to Morganella with admission from 12/14-12/21/2024, chronic ulceration of right foot, tobacco use, COPD, history of acute on chronic respiratory failure, CHF, chronic venous stasis, alcohol abuse, cardiomyopathy, atrial fibrillation on long-term anticoagulant use. He presented to the emergency department with a recurrence of open wounds of right lower extremity and has been admitted on 01/09/25 with sepsis due to wounds. During his hospital stay, he developed abdominal pain, N/V. A CT A/P obtained on 01/12/25 revealed SBO, umbilical hernia, a right inguinal hernia containing distal, collapsed and non-obstructed bowel and a left inguinal hernia containing fluid/fat, for which GI surgery was consulted. Pt showed some improvement in symptoms with NGT decompression and GI recommends conservative approach. Allergies Allergy/AdvReac Type Severity Reaction Status Date / Time erythromycin base Allergy Intermediate hives or Verified 12/14/24 17:58 diarrhea Penicillins Allergy Intermediate hives or Verified 12/14/24 17:58 diarrhea NITRATES IN PROCESSED MEATS Allergy Severe Difficulty Uncoded 12/14/24 17:58 Breathing Home Medications Medication Instructions Recorded Confirmed Type cetirizine 10 mg tablet 10 mg PO DAILY PRN Allergy Symptoms 12/29/18 01/09/25 History multivitamin (Daily-Deanne tablet) 1 tab PO DAILY 07/20/20 01/09/25 History ibuprofen 200 mg capsule 400 mg PO Q6H PRN Pain 06/24/22 01/09/25 History magnesium 250 mg tablet 250 mg PO DAILY 09/16/22 01/09/25 History nebulizers #1 ea 12/23/22 01/09/25 Rx guaifenesin 600 mg tablet, 600 mg PO BID PRN congestion #60 01/28/23 01/09/25 Rx extended release 12 hr (Mucinex) tabs albuterol sulfate 1.25 mg/3 mL 1.25 mg (3 mL) inhalation QID PRN 03/31/23 01/09/25 Rx solution for nebulization shortness of breath or wheezing #360 mL potassium chloride 10 mEq 10 meq PO DAILY #90 tabs 06/08/24 01/09/25 Rx tablet,extended release (Klor-Con) rivaroxaban 10 mg tablet (Xarelto) 10 mg PO QPM #90 tabs 06/27/24 01/09/25 Rx metoprolol succinate 50 mg 50 mg PO DAILY #90 tabs 10/19/24 01/09/25 Rx tablet,extended release 24 hr bupropion HCl 150 mg tablet,12 hr 150 mg PO BID #60 ea 11/08/24 01/09/25 Rx sustained-release (Wellbutrin SR) albuterol sulfate 90 mcg/actuation 2 puff inhalation Q4H PRN 11/26/24 01/09/25 Rx aerosol inhaler (Ventolin HFA) Shortness Of Breath Or Wheezing #18 grams budesonide 0.5 mg/2 mL suspension 0.25 mg inhalation BID #60 mL 12/21/24 01/09/25 Rx for nebulization furosemide 20 mg tablet (Lasix) 20 mg PO BID edema #120 tabs 12/28/24 01/09/25 Rx oxycodone-acetaminophen 10 mg-325 1 tab PO Q6H PRN pain #60 tabs 01/09/25 0 01/09/25 Rx mg tablet (Percocet) Patient History Medical History Back pain HX L2 FRACTURE>HEALED Leg cramps AT NIGHT Congestive heart failure Atrial fibrillation FOLLOWED BY [facility] COPD (chronic obstructive pulmonary disease) Surgical History History of total hip arthroplasty RT H/O abdominal surgery X 2 ? EXPLORATORY>MARTITA TAO, ABDOMINAL BENIGN MASS REMOVED A CHILD History of tonsillectomy History of tooth extraction Hx of appendectomy Family History Father Hairy cell leukemia Myocardial infarction Colorectal cancer Mother Multiple myeloma Other No family history of adverse response to anesthesia Denies family history of Ovarian cancer Prostate cancer Breast cancer Social History Smoking Status: Current every day smoker Tobacco Type: Cigarettes Age Started Using Tobacco: 16; packs per day: 1; Cigarettes Per Day: 30; Second Hand Exposure: Yes; Do You Dip or Chew Tobacco: No; Hx Alcohol Use: Yes Alcohol type: beer Alcohol Intake Frequency: 4 or More x per/Week Alcohol Intake Frequency Comment: 36-48 ounces of beer a day Hx Substance Use: No Preferred Language: Central African Communication Ability: Effective 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 Beliefs That Will Affect Care: None marital status: marital status details: no children Current Living Situation: Spouse Current Living Situation Comment: lives in [place] by himself current occupational status: disabled other: 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 Feels Safe at Home: Yes caffeine: Yes Dental Care, Regularly: No Physical Activity Frequency: Does not Exercise Seatbelt Use: always Sunscreen Use: No Assistive Devices: Glasses, Walker and Wheelchair Review of Systems Review of Systems: All systems reviewed & are unremarkable except as noted in HPI & below Physical Exam Constitutional: WD/WN, vitals as above Eyes: PERRL, conjunctivae normal, anicteric sclerae Neck: trachea midline, no thyromegaly Respiratory: normal respiratory effort, lungs clear to auscultation Gastrointestinal (Abdomen): normal bowel sounds, soft, nontender, no hepatosplenomegaly Inspection/Auscultation: + abdomen distended Skin: no rashes, warm and dry Neurologic: PERRL, EOMI, accommodation nl, no face palsy, no dysarthria Psychiatric: A+Ox3, euthymic affect Results & Data Vital Signs (Past 12 Hours) Vital Signs Temp Pulse Pulse Resp BP BP Pulse Ox 01/14/25 11:05 103 H 18 90 01/14/25 10:39 37.0 C 107 H 20 117/75 97 01/14/25 08:00 01/14/25 07:46 36.8 C 99 H 22 110/71 99 01/14/25 07:01 87 20 93 01/14/25 05:41 95 H 111/76 01/14/25 05:40 111/76 01/14/25 02:32 36.7 C 102 H 18 111/72 90 O2 Del Method O2 Flow Rate 01/14/25 11:05 Nasal Cannula 0.5 01/14/25 10:39 Room Air 01/14/25 08:00 Nasal Cannula 0.5 01/14/25 07:46 Room Air 01/14/25 07:01 Nasal Cannula 0.5 01/14/25 05:41 01/14/25 05:40 01/14/25 02:32 Room Air Laboratory Results Abnormal lab results 01/14/25 01/14/25 Range/Units 06:29 06:58 RBC 3.78 L (4.70-6.10) M/uL Hgb 12.0 L (14.0-18.0) g/dl Hct 36.4 L (42.0-52.0) % RDW Std Deviation 47.8 H (36.4-46.3) fL Potassium 3.4 L (3.5-5.1) mmol/L Chloride 93 L (98-107) mmol/L Carbon Dioxide 45 H* (21-32) mmol/L Glucose 152 H (70-99(Fasting)) mg/dl Diagnostic Findings Abdomen/Pelvis CT 01/12/25 16:49 Exam(s): CT ABDOMEN + PELVIS With Contrast Oral - High Density Amt: gastro, IV Amt: 93 ml opti 320 EXAM: CT Abdomen and Pelvis With Intravenous Contrast CLINICAL HISTORY: Abdominal Pain with nausea and vomiting TECHNIQUE: Axial computed tomography images of the abdomen and pelvis with intravenous contrast. CTDI is 20.43 mGy and DLP is 963.63 mGy-cm. Automated exposure control was utilized for the study. A dose lowering technique was utilized adhering to the principles of ALARA. CONTRAST: Patient received gastro of Oral - High Density and 93 ml opti 320 of IV contrast COMPARISON: CT abdomen and pelvis 08/31/2019 FINDINGS: Lung bases: Unremarkable. No mass. No consolidation. Pleural space: Trace right pleural effusion. ABDOMEN: Liver: Unremarkable. No mass. Gallbladder and bile ducts: Unremarkable. No calcified stones. No ductal dilation. Pancreas: Unremarkable. No mass. No ductal dilation. Spleen: Unremarkable. No splenomegaly. Adrenals: Unremarkable. No mass. Kidneys and ureters: Suspect punctate nonobstructing right renal calculus. No hydronephrosis of either kidney. Simple appear left renal cyst is present, no follow up is needed. The kidneys are otherwise unremarkable. Stomach and bowel: Small-bowel obstruction with a transition point in the right lower quadrant. There are bilateral inguinal hernias, the right contains decompressed loops of small bowel and the left contains a small amount of fluid without bowel in the left hernia. No mucosal thickening. PELVIS: Appendix: No findings to suggest acute appendicitis. Bladder: Bladder calculi are present. No mass. Reproductive: Nonspecific prostate gland enlargement. ABDOMEN and PELVIS: Intraperitoneal space: Minimal free fluid in the pelvis is nonspecific. No free air. Bones/joints: Age-indeterminate severe L2 compression fracture with 5 mm of retropulsion resulting in mild spinal canal stenosis. Slightly worsened moderate L4 compression fracture. There is a right hip prosthesis. Avascular necrosis of the left femoral head. No dislocation. Soft tissues: Unremarkable. Vasculature: Moderate atherosclerosis. No aneurysm. Lymph nodes: Unremarkable. No enlarged lymph nodes. IMPRESSION: 1. Small-bowel obstruction with a transition point in the right lower quadrant. 2. There are bilateral inguinal hernias, the right contains decompressed loops of small bowel and the left contains a small amount of fluid without bowel in the left hernia. 3. Suspect punctate nonobstructing right renal calculus. No hydronephrosis of either kidney. 4. Age-indeterminate severe L2 compression fracture with 5 mm of retropulsion resulting in mild spinal canal stenosis. 5. Slightly worsened moderate L4 compression fracture. 6. Nonspecific prostate gland enlargement. 7. Bladder calculi are present. 8. Minimal free fluid in the pelvis is nonspecific. 9. Avascular necrosis of the left femoral head. 10. Trace right pleural effusion. Electronically signed by: Alejandra Beltran MD 01/13/25 01:50 AM KUB X-Ray 01/13/25 08:48 KUB CLINICAL HISTORY: Small bowel obstruction. Vomiting. FINDINGS: An AP, portable, supine abdominal radiograph is compared to abdominal x-ray and CT dated 01/12/2025. An enteric tube is in place. The tip projects below the diaphragm over the gastric fundus. There are distended and gas-filled loops of small bowel indicating persistent obstruction. Bowel loops measure up to 4.5 cm in diameter. No evidence of intraperitoneal free air is seen on this supine image. There are no abnormal abdominal calcifications. The bladder is filled with excreted IV contrast. Pelvic phleboliths are again noted. The skeletal structures are osteopenic and appear intact. A right hip arthroplasty is in place. IMPRESSION: 1. An enteric tube is in place as above. 2. Persistent high-grade small bowel obstruction. Electronically signed by: Dru Akbar M.D. 01/13/2025 10:23 AM Chest X-Ray 01/14/25 02:28 EXAM: XR chest 1V portable CLINICAL HISTORY: Patient removed NG tube- new tube placed. TECHNIQUE: An X-ray image of the chest is obtained in AP projection. COMPARISON: 01/13/2025. FINDINGS: NG tube placement reaching below the left hemidiaphragm with its tip at the stomach. Pulmonary Parenchyma: Atelectatic band in the right upper lung zone. Otherwise, lungs show no evidence of consolidation, collapse, or focal opacities. No pulmonary nodules are identified. No evidence of pleural effusion or pleural thickening. Heart and Mediastinum: Heart size and shape are normal. No mediastinal widening or masses. No hilar or mediastinal lymphadenopathy. Bony Thorax: Bony thorax appears intact without fractures or deformities. Soft Tissues: Soft tissues overlying the chest wall are unremarkable. IMPRESSION: 1. The nasogastric tube is in the proper position with its tip terminating in the stomach. 2. No acute cardiopulmonary abnormality. 3. Atelectatic band in the right upper lung zone. 4. No other significant changes compared to the prior study, dated 01/13/2025 Electronically signed by Denny Lui 01-14-2025 07:43 AM Medications Administered Current Inpatient Medications Acetaminophen (Acetaminophen 500 Mg Tab) 1,000 mg PO Q8H PRN PRN Reason: Pain or Fever Stop: 02/13/25 00:00 Albuterol (Albuterol 0.5% Neb Soln 2.5 Mg/0.5 Ml Vial) 2.5 mg INH QID PRN PRN Reason: shortness of breath or wheezing Stop: 02/08/25 20:27 Last Admin: 01/14/25 07:01 Dose: 2.5 mg Albuterol (Albut/Ipratrop 3mg/0.5mg Neb 3 Ml Vial) 3 ml NEB QIDR CECILIO; Protocol Stop: 02/13/25 10:59 Last Admin: 01/14/25 11:05 Dose: 3 ml Bisacodyl (Bisacodyl 10 Mg Supp) 10 mg MN DAILY PRN PRN Reason: constipation Stop: 02/11/25 13:09 Bupropion HCl (Bupropion Sr 150 Mg Tabcr) 150 mg PO BID [facility] Stop: 02/08/25 20:59 Last Admin: 01/12/25 22:31 Dose: 150 mg Cetirizine HCl (Cetirizine Hcl 10 Mg Tablet) 10 mg PO DAILY PRN PRN Reason: Allergy Symptoms Stop: 02/08/25 20:25 Formoterol Fumarate (Formoterol 20 Mcg/2 Ml Vial) 20 mcg NEB BIDR [facility] Stop: 02/13/25 18:59 Cefepime HCl (Maxipime 2000mg) 2,000 mg in 20 mls @ 5 mls/min IV Q12H [facility]; Protocol Stop: 01/17/25 04:59 Last Admin: 01/14/25 05:21 Dose: 5 mls/min Prochlorperazine 5 mg/ Syringe 5 mls @ 5 mls/min IV Q6H PRN PRN Reason: Nausea And Vomiting Stop: 02/11/25 13:08 Last Admin: 01/13/25 01:12 Dose: 5 mls/min Potassium Chloride/Dextrose/Sod Cl (D5w And 1/2nss + 20meq Kcl) 20 meq in 1,000 mls @ 125 mls/hr IV .Q8H [facility] Stop: 01/15/25 16:59 Last Admin: 01/14/25 12:40 Dose: 125 mls/hr Thiamine HCl 100 mg/ Syringe 10 mls @ 2 mls/min IV QAM [facility] Stop: 02/12/25 08:59 Last Admin: 01/14/25 08:09 Dose: 2 mls/min Acetaminophen (Ofirmev) 1,000 mg in 100 mls @ 400 mls/hr IV Q8H PRN PRN Reason: Pain or Fever Stop: 01/17/25 00:07 Last Infusion: 01/14/25 01:01 Dose: Infused Lorazepam (Lorazepam 2 Mg/1 Ml Vial) 1 mg IV ONE PRN; Protocol PRN Reason: EtoH Withdrawal AWSS 6-10 Magnesium Oxide (Magnesium Oxide 400 Mg Tab) 400 mg PO DAILY [facility] Stop: 02/09/25 08:59 Last Admin: 01/12/25 09:00 Dose: 400 mg Metoprolol Succinate (Metoprolol Succ 50mg Ext Rel Tab) 50 mg PO DAILY [facility] Stop: 02/09/25 08:59 Last Admin: 01/12/25 09:00 Dose: 50 mg Metoprolol Tartrate (Metoprolol Tartrate 1 Mg/Ml Vial) 2.5 mg IV Q6 [facility] Stop: 02/12/25 11:59 Last Admin: 01/14/25 12:40 Dose: 2.5 mg Miscellaneous (Remove Nicoderm Patch) 1 each N/A DAILY@0859 [facility] Stop: 02/10/25 08:58 Last Admin: 01/14/25 08:11 Dose: 1 each Multivitamins (Multivitamin Tab) 1 tab PO DAILY [facility] Stop: 02/09/25 08:59 Last Admin: 01/12/25 09:00 Dose: 1 tab Nicotine (Nicotine 21 Mg/24 Hr Tdsy) 1 patch TD QAM [facility] Stop: 02/09/25 12:59 Last Admin: 01/14/25 08:10 Dose: 1 patch Ondansetron HCl (Ondansetron Inj 2 Mg/Ml 2 Ml Vial) 4 mg IV Q6H PRN PRN Reason: Nausea Stop: 02/08/25 20:25 Last Admin: 01/12/25 21:34 Dose: 4 mg Oxycodone HCl (Oxycodone Hcl Ir 5 Mg Tab (Immediate Release)) 5 mg PO Q4H PRN PRN Reason: Pain unrelieved by percocet Stop: 01/24/25 12:51 Last Admin: 01/11/25 14:25 Dose: 5 mg Oxycodone/Acetaminophen (Oxycodone/Acetaminophen 10-325 Tab) 1 tab PO Q6H PRN PRN Reason: Moderate Pain (Scale 4, 5, 6) Stop: 01/23/25 20:25 Last Admin: 01/12/25 03:35 Dose: 1 tab Polyethylene Glycol (Polyethylene (Miralax) 17 Gm Pack) 17 gm PO DAILY [facility] Stop: 02/11/25 13:14 Last Admin: 01/12/25 15:38 Dose: Not Given Potassium Chloride (Potassium Chloride 10 Meq Tabcr) 10 meq PO DAILY [facility] Stop: 02/09/25 08:59 Last Admin: 01/12/25 09:00 Dose: 10 meq Rivaroxaban (Rivaroxaban 10 Mg Tablet) 10 mg PO QPM [facility] Stop: 02/08/25 20:59 Last Admin: 01/12/25 22:31 Dose: 10 mg Sennosides (Senna 8.6 Mg Tab) 17.2 mg PO HS CECILIO Stop: 02/11/25 13:09 Last Admin: 01/12/25 22:31 Dose: 17.2 mg PG Care Time/CCT Total # of Minutes Spent Total Time Spent with Patient: Total time spent is greater than 50% in coordination of care (as documented) at patient's floor/unit and/or counseling patient: Advanced Care Planning 75003 Advanced Care Planning 30 [place] [address] IN/OBS CONSULT LVL 4,60M Patient Type New History Expanded Problem Focused Exam Expanded Problem Focused Medical Decision Making Moderate Complexity Diagnoses Palliative care by specialist Z51.5 Counseling regarding goals of care Z71.89 Additional Codes Advanced Care Planning - 29954 Advanced Care Planning 30 Min: 03157 Advanced Care Planning 30 Min ([id number])
--- NOTE | 2025-01-14 18:00 | Hospitalist Progress Note ---
Date of Service January 14, 2025 Assessment & Plan (1) Sepsis: (2) Cellulitis of both lower extremities: (3) Chronic ulcer of right foot with fat layer exposed: (4) PAD (peripheral artery disease): (5) SBO (small bowel obstruction): Plan The patient is a 64-year-old wheelchair-bound male with with past medical history including PAD, gram-negative bacteremia of right foot wounds due to Morganella with admission from 12/14-12/21/2024, chronic ulceration of right foot, tobacco use, COPD, history of acute on chronic respiratory failure, CHF, chronic venous stasis, alcohol abuse, cardiomyopathy, atrial fibrillation on long-term anticoagulant use. He was admitted with acute and chronic bilateral foot wounds and RLE, possibly LLE cellulitis Acute small bowel obstruction - developed on 01/12. Confirmed by CT, NG tube placed. -exam and symptoms improving after NG placement -consulted general surgery - reviewed recs in note -continue conservative care with NG to LIS, IV fluids, IV antiemetics -continues with high NG tube output and no flatus/stool -high risk of respiratory failure if he develops a complicating aspiration pneumonia or distention compromises his breathing, high risk surgical candidate because of his severe lung disease - highly likely unable to be extubated and would require trach. Also severe diffuse vascular disease Sepsis due to bilateral lower extremity cellulitis, right greater than left- sepsis resolved Bilateral LE acute and chronic foot wounds Recent foot MRI negative for osteo Wound culture polymicrobial - no MRSA and all orgs sens to cefepime -continue Consulted wound care Bilateral LE cellulitis significantly improved Peripheral arterial disease- Arterial duplex studies showed greater than 75% stenosis of the left proximal femoral artery, disease also present on the right Left foot is ischemic but chronically so, PAD inhibits healing of both feet Podiatry consult a few weeks ago, no debridement recommended and osteo ruled out by MRI CTA LE - holding off at the moment because of acute SBO and clinical instability, updated vascular surgery Acute exacerbation of COPD- mild exacerbation resolved, endstage COPD and FEV1 is around 0.5 92% on RA Continue inhalers and nebulizers. Has been refusing his maintenance inhalers so ordered formoterol nebs. Refusing inhaled steroid Seems to be at his baseline Updated Dr. Goncalves Atrial fibrillation- stable Continue metoprolol and Xarelto History of alcohol abuse- Does not want to stop drinking. Monitor for signs of withdrawal - none so far. Has AWSS and prn lorazepam while NPO nicotine tobacco dependence nicotine patch hyponatremia - mild-mod, chronic and probably SIADH from severe COPD, also has oral furosemide. Monitor BMP - 144 normal today hypokalemia - 3.4 replaced IV. 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 Can stand to transfer but cannot walk. Seems to be multifactorial including leg weakness, wounds, very severe COPD DVT ppx - on DOAC Admission and Anticipated Discharge Date Admission Date: January 09, 2025 Subjective Abdominal distention and pain improved but no flatus/stool and NG output remains high No N/V both legs remain painful Dyspnea is at baseline Physical Exam 2 Physical Exam: Last 24h vitals reviewed GEN: looks much more comfortable HEENT: pupils equal, sclerae anicteric, NG tube RESP: increased WOB, extremely poor air movement, unchanged - at baseline CV: reg no mrg distant ABD: no longer distended, NG suction sounds, nontender, bilateral inguinal hernias and periumbilical hernia - not inflamed/soft : no cope EXT: extensive bilateral LE wounds -examined today. Cellulitis - erythema/induration and edema massively improved. Wounds remains extensive without significant drainage, L dorsum bulla still intact NEURO: AOx person, place, and situation. Face symmetric, speech normal, moves 4 ext spontaneously and equally Results & Data Results & Data Vital Signs (Past 12 Hours) Vital Signs Temp Pulse Pulse Resp BP Pulse Ox O2 Del Method 01/14/25 17:30 99 H 117/71 01/14/25 15:47 83 01/14/25 15:34 37.0 C 103 H 22 106/72 97 Nasal Cannula 01/14/25 15:22 89 18 94 Nasal Cannula 01/14/25 12:55 84 01/14/25 11:05 103 H 18 90 Nasal Cannula 01/14/25 10:39 37.0 C 107 H 20 117/75 97 Room Air 01/14/25 08:00 Nasal Cannula 01/14/25 07:46 36.8 C 99 H 22 110/71 99 Room Air 01/14/25 07:01 87 20 93 Nasal Cannula O2 Flow Rate 01/14/25 17:30 01/14/25 15:47 01/14/25 15:34 1 01/14/25 15:22 0.5 01/14/25 12:55 01/14/25 11:05 0.5 01/14/25 10:39 01/14/25 08:00 0.5 01/14/25 07:46 01/14/25 07:01 0.5 Laboratory Results 01/14/25 06:58 01/14/25 06:29 PG Care Time/CCT Total # of Minutes Spent Total Time Spent with Patient: Total time spent is greater than 50% in coordination of care (as documented) at patient's floor/unit and/or counseling patient: Coding Level of Care Code 66850 SUB INP/OBS CARE 3/50MIN Diagnoses Sepsis A41.9 Cellulitis of both lower extremities L03.115; L03.116 Chronic ulcer of right foot with fat layer exposed L97.512 PAD (peripheral artery disease) I73.9 SBO (small bowel obstruction) K56.609
[2025-01-14] MEDS: FORMOTEROL 20 MCG/2 ML VIAL NEB SCH (20:56)
[2025-01-15] MEDS ORDERED: PROCHLORPERAZINE 5 MG in SYRINGE 4 ML IV PRN (06:14)
[2025-01-15 07:10] LABS: Hematocrit (blood only) 35.2 % (42.0-52.0); Hemoglobin 11.6 g/dl (14.0-18.0); Mean Corpuscular Hemoglobin 31.7 pg (25.0-34.0); Mean Corpuscular Volume 96.2 fL (80.0-100.0); Platelet Count 297 K/uL (130-400); RDW Standard Deviation 48.2 fL (36.4-46.3); Red Blood Count 3.66 M/uL (4.70-6.10); White Blood Count 8.35 K/ul (4.8-10.8)
[2025-01-15 07:42] LABS: Anion Gap 7.0 (3-11); Blood Urea Nitrogen 10.0 mg/dl (6-23); Calcium 8.6 mg/dl (8.6-10.3); Carbon Dioxide 42.0 mmol/L (21-32); Chloride 94.0 mmol/L (98-107); Creatinine Clr Calc Pharmacy 89.5 ml/min; Glucose 125.0 mg/dl (70-99(Fasting)); Magnesium 2.1 mg/dl (1.7-2.4); Potassium 3.0 mmol/L (3.5-5.1); Sodium 143.0 mmol/L (136-145)
--- NOTE | 2025-01-15 08:56 | XRay Report ---
KUB HISTORY: Small bowel obstruction sbo COMPARISON: KUB 01/13/2025, CT abdomen and pelvis 01/12/2025 FINDINGS: Persistent small bowel obstruction with dilated air-filled loops of small bowel measuring u p to 4.3 cm, previously 4.6 cm. Distal tip of enteric tube projects over the stomach. Arterial calcif ications are noted. No renal calculi. No ureteral calculi. No pneumoperitoneum or pneumatosis. Right hip arthroplasty. No fracture. IMPRESSION: 1. Distal tip of enteric tube projects over the stomach. 2. Persistent small bowel obstruction with bowel distention appearing stable to slightly improved com pared to 01/13/2025. ACT 112: Negative or not required by law. The above report was generated using voice recognition software. It may contain grammatical, syntax o r spelling errors. Electronically signed by: Brent Alvarez M.D. 01/15/2025 8:55 AM
--- NOTE | 2025-01-15 10:13 | Consultation ---
Date of Consultation January 15, 2025 Assessment & Plan (1) PAD (peripheral artery disease): Pt with moderate PAD, good dopplers distally. Foot wounds malodorous and cellulitic. Recommend podiatry eval for foot wounds. Pt also seen by Dr Worley today. Recommends CTA abd/pelvis with runoff to complete arterial eval. Will make further recommendations after CTA. History of Present Illness Reason for Consultation: PAD Attending Physician: Salome Tesfaye MD History of Present Illness 64 yo m with multiple medical problems, including PAD, severe COPD, CHF, ETOH abuse, cardiomyopathy, pulmonary nodule, a fib, seen in consultation today for PAD in relation to BLE wounds. Pt previously seen by Dr Worley while inpt about 1 month ago. At that time, pt indicated that wounds were healing, but slowly. Podiatry recommended conservative treatment at the time. Pt presented to [facility] again a few days ago after he noted new blisters on his feet and worsening erythema. Pt has developed an SBO since admission as well. Pt currently admits some discomfort in BLE, WILKERSON, SOB, and abd distention. Denies fever, chest pain, abd pain, N,V, other complaints. Does not ambulate enough to claudicate. Arterial US done in November indicates some inflow disease, as well as moderate PAD. Allergies Allergy/AdvReac Type Severity Reaction Status Date / Time erythromycin base Allergy Intermediate hives or Verified 12/14/24 17:58 diarrhea Penicillins Allergy Intermediate hives or Verified 12/14/24 17:58 diarrhea NITRATES IN PROCESSED MEATS Allergy Severe Difficulty Uncoded 12/14/24 17:58 Breathing Home Medications Medication Instructions Recorded Confirmed Type cetirizine 10 mg tablet 10 mg PO DAILY PRN Allergy Symptoms 12/29/18 01/09/25 History multivitamin (Daily-Deanne tablet) 1 tab PO DAILY 07/20/20 01/09/25 History ibuprofen 200 mg capsule 400 mg PO Q6H PRN Pain 06/24/22 01/09/25 History magnesium 250 mg tablet 250 mg PO DAILY 09/16/22 01/09/25 History nebulizers #1 ea 12/23/22 01/09/25 Rx guaifenesin 600 mg tablet, 600 mg PO BID PRN congestion #60 01/28/23 01/09/25 Rx extended release 12 hr (Mucinex) tabs albuterol sulfate 1.25 mg/3 mL 1.25 mg (3 mL) inhalation QID PRN 03/31/23 01/09/25 Rx solution for nebulization shortness of breath or wheezing #360 mL potassium chloride 10 mEq 10 meq PO DAILY #90 tabs 06/08/24 01/09/25 Rx tablet,extended release (Klor-Con) rivaroxaban 10 mg tablet (Xarelto) 10 mg PO QPM #90 tabs 06/27/24 01/09/25 Rx metoprolol succinate 50 mg 50 mg PO DAILY #90 tabs 10/19/24 01/09/25 Rx tablet,extended release 24 hr bupropion HCl 150 mg tablet,12 hr 150 mg PO BID #60 ea 11/08/24 01/09/25 Rx sustained-release (Wellbutrin SR) albuterol sulfate 90 mcg/actuation 2 puff inhalation Q4H PRN 11/26/24 01/09/25 Rx aerosol inhaler (Ventolin HFA) Shortness Of Breath Or Wheezing #18 grams budesonide 0.5 mg/2 mL suspension 0.25 mg inhalation BID #60 mL 12/21/24 01/09/25 Rx for nebulization furosemide 20 mg tablet (Lasix) 20 mg PO BID edema #120 tabs 12/28/24 01/09/25 Rx oxycodone-acetaminophen 10 mg-325 1 tab PO Q6H PRN pain #60 tabs 01/09/25 01/09/25 Rx mg tablet (Percocet) Patient History Medical History Back pain HX L2 FRACTURE>HEALED Leg cramps AT NIGHT Congestive heart failure Atrial fibrillation FOLLOWED BY [facility] COPD (chronic obstructive pulmonary disease) Surgical History History of total hip arthroplasty RT H/O abdominal surgery X 2 ? EXPLORATORY>MARTITA TAO, ABDOMINAL BENIGN MASS REMOVED A CHILD History of tonsillectomy History of tooth extraction Hx of appendectomy Family History Father Hairy cell leukemia Myocardial infarction Colorectal cancer Mother Multiple myeloma Other No family history of adverse response to anesthesia Denies family history of Ovarian cancer Prostate cancer Breast cancer Social History Smoking Status: Current every day smoker Tobacco Type: Cigarettes Age Started Using Tobacco: 16; packs per day: 1; Cigarettes Per Day: 30; Second Hand Exposure: Yes; Do You Dip or Chew Tobacco: No; Hx Alcohol Use: Yes Alcohol type: beer Alcohol Intake Frequency: 4 or More x per/Week Alcohol Intake Frequency Comment: 36-48 ounces of beer a day Hx Substance Use: No Preferred Language: Upper Sorbian Communication Ability: Effective Injection Maintenance Technician Required: No Beliefs That Will Affect Care: None marital status: marital status details: no children Current Living Situation: Spouse Current Living Situation Comment: lives in [place] by himself current occupational status: disabled other: 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 Feels Safe at Home: Yes caffeine: Yes Dental Care, Regularly: No Physical Activity Frequency: Does not Exercise Seatbelt Use: always Sunscreen Use: No Assistive Devices: Glasses, Walker and Wheelchair Review of Systems Review of Systems: All systems reviewed & are unremarkable except as noted in HPI & below Physical Exam Constitutional: + ill appearing, cooperative and comfort able; not in distress Neck: trachea midline Respiratory: + labored breathing; + abnormal respirat ory effort Auscultation: + diminished lung sounds, + crackles and + wheezes Cardiovascular: Rate/Rhythm: + irregularly irregular Vessels: femoral pulses present, posterior tibial pulses present (dopplerable BLE) and dorsalis pedis pulses present (dopplerable BLE); + abnormal peripheral pulses Extremities: normal capillary refill Gastrointestinal (Abdomen): Inspection/Auscultation: + abdomen distended Percussion/Palpation: abdomen nontender (firm) Skin: L foot with open wounds, appear to have granulation in wound beds. + erythema/warmth to foot R foot with open wounds, granulation, erythema Neurologic: moves all extremities and awake; no focal motor deficits and not confused Psychiatric: A+Ox3, euthymic affect Results & Data Vital Signs (Past 12 Hours) Vital Signs Temp Pulse Pulse Resp BP BP Pulse Ox 01/15/25 07:14 36.7 C 91 H 20 108/74 94 01/15/25 07:05 94 H 20 90 01/15/25 06:13 90 107/70 01/15/25 05:58 96 H 119/77 01/15/25 04:25 108 H 01/15/25 02:21 37.2 C 97 H 20 120/78 90 01/15/25 00:19 91 H 110/78 01/14/25 22:19 36.9 C 90 18 104/68 91 O2 Del Method O2 Flow Rate 01/15/25 07:14 Nasal Cannula 1 01/15/25 07:05 Nasal Cannula 0.5 01/15/25 06:13 01/15/25 05:58 01/15/25 04:25 01/15/25 02:21 Nasal Cannula 1.0 01/15/25 00:19 01/14/25 22:19 Nasal Cannula 1.0
--- NOTE | 2025-01-15 11:57 | Surgery Progress Note ---
Date of Service January 15, 2025 Assessment & Plan (1) SBO (small bowel obstruction): Plan: Keep NG tube in place today He is passing some minimal flatus No plans for any surgical intervention at this time Will follow Admission and Anticipated Discharge Date Admission Date: January 09, 2025 Subjective Patient seen and examined. Denies any abdominal pain. Still little bit distended. Passing minimal flatus. No BM. Review of Systems Constitutional: no fever and no chills Respiratory: no cough and no dyspnea Cardiovascular: no chest pain and no dyspnea on exertion Gastrointestinal: + constipation; no abdominal pain, no na usea, no vomiting and no diarrhea/loose stools Genitourinary: no dysuria or no nocturia Integumentary: no acne, no skin ulcer and no erythema Psychiatric: no behavioral changes and no depression Physical Exam Constitutional: WD/WN, vitals as above Eyes: PERRL, conjunctivae normal, anicteric sclerae ENMT: external ear and nose normal, oropharynx normal Neck: trachea midline, no thyromegaly Respiratory: normal respiratory effort, lungs clear to auscultation Cardiovascular: RRR, no murmur, no edema Gastrointestinal (Abdomen): Inspection/Auscultation: abdomen normal to inspection and + abdomen distended Percussion/Palpation: abdomen soft; abdomen nontender and no guarding Musculoskeletal: no cyanosis or clubbing, extremities motor strength 5/5 Skin: no rashes, warm and dry Psychiatric: A+Ox3, euthymic affect Results & Data Vital Signs (Past 12 Hours) Vital Signs Temp Pulse Pulse Resp BP BP Pulse Ox 01/15/25 11:48 94 H 20 93 01/15/25 10:44 36.9 C 87 19 118/75 96 01/15/25 08:00 94 H 01/15/25 08:00 01/15/25 07:14 36.7 C 91 H 20 108/74 94 01/15/25 07:05 94 H 20 90 01/15/25 06:13 90 107/70 01/15/25 05:58 96 H 119/77 01/15/25 04:25 108 H 01/15/25 02:21 37.2 C 97 H 20 120/78 90 01/15/25 00:19 91 H 110/78 O2 Del Method O2 Flow Rate 01/15/25 11:48 Nasal Cannula 0.5 01/15/25 10:44 Nasal Cannula 0.5 01/15/25 08:00 01/15/25 08:00 Nasal Cannula 0.5 01/15/25 07:14 Nasal Cannula 1 01/15/25 07:05 Nasal Cannula 0.5 01/15/25 06:13 01/15/25 05:58 01/15/25 04:25 01/15/25 02:21 Nasal Cannula 1.0 01/15/25 00:19 PG Care Time/CCT Total # of Minutes Spent Total Time Spent with Patient: Total time spent is greater than 50% in coordination of care (as documented) at patient's floor/unit and/or counseling patient: Coding Level of Care Code 71705 SUB INP/OBS CARE 06/16MIN Diagnoses SBO (small bowel obstruction) K56.609
--- NOTE | 2025-01-15 12:32 | Palliative Care Progress Note ---
Date of Service January 15, 2025 Assessment & Plan (1) Palliative care by specialist: Plan: Palliative care will continue to follow for ongoing ACP discussions and patient/family support. (2) Counseling regarding goals of care: Plan: Met with pt at bedside, no visitors present. Reinforced previous conversation (per 01/16 palliaitive care consult note). Patient confirms his wish for DNR/DNI, again stating that he wishes for all measures to optimize his health to continue, however if his heart were to stop beating he would like a natural . He encourages that all aggressive measures to keep him alive continue, but if despite all aggressive measures his heart stops he would not want resuscitation. He is agreeable to cardioversion and medications that might lead to ICU level care at this point as long as it does not involve mechanical ventilation. He is very clear in his wishes to not ever be intubated nor placed on mechanical ventilation. This has been consistently consistent in conversations with attending team (Dr. Tesfaye) as well as previous discussions with myself. Plan Pt remains DNR/DNI but continue all other aggressive interventions to optimize his health. Admission and Anticipated Discharge Date Admission Date: January 09, 2025 Subjective Assessed pt at bedside, he was awake and alert. He denies any discomfort today and NAEON. no visitors present. Review of Systems Review of Systems: All systems reviewed & are unremarkable except as noted in Subjective Physical Exam Constitutional: WD/WN, vitals as above Eyes: PERRL, conjunctivae normal, anicteric sclerae Neck: trachea midline, no thyromegaly Respiratory: normal respiratory effort, lungs clear to auscultation Gastrointestinal (Abdomen): normal bowel sounds, soft, nontender, no hepatosplenomegaly Inspection/Auscultation: + abdomen distended Skin: no rashes, warm and dry Neurologic: PERRL, EOMI, accommodation nl, no face palsy, no dysarthria Psychiatric: A+Ox3, euthymic affect Results & Data Vital Signs (Past 12 Hours) Vital Signs Temp Pulse Pulse Resp BP BP Pulse Ox 01/15/25 12:06 99 H 121/71 01/15/25 11:48 94 H 20 93 01/15/25 10:44 36.9 C 87 19 118/75 96 01/15/25 08:00 94 H 01/15/25 08:00 01/15/25 07:14 36.7 C 91 H 20 108/74 94 01/15/25 07:05 94 H 20 90 01/15/25 06:13 90 107/70 01/15/25 05:58 96 H 119/77 01/15/25 04:25 108 H 01/15/25 02:21 37.2 C 97 H 20 120/78 90 O2 Del Method O2 Flow Rate 01/15/25 12:06 01/15/25 11:48 Nasal Cannula 0.5 01/15/25 10:44 Nasal Cannula 0.5 01/15/25 08:00 01/15/25 08:00 Nasal Cannula 0.5 01/15/25 07:14 Nasal Cannula 1 01/15/25 07:05 Nasal Cannula 0.5 01/15/25 06:13 01/15/25 05:58 01/15/25 04:25 01/15/25 02:21 Nasal Cannula 1.0 Laboratory Results Abnormal lab results 01/15/25 Range/Units 06:41 RBC 3.66 L (4.70-6.10) M/uL Hgb 11.6 L (14.0-18.0) g/dl Hct 35.2 L (42.0-52.0) % RDW Std Deviation 48.2 H (36.4-46.3) fL Potassium 3.0 L (3.5-5.1) mmol/L Chloride 94 L (98-107) mmol/L Carbon Dioxide 42 H* (21-32) mmol/L Glucose 125 H (70-99(Fasting)) mg/dl Diagnostic Findings Abdomen/Pelvis CT 01/12/25 16:49 Exam(s): CT ABDOMEN + PELVIS With Contrast Oral - High Density Amt: gastro, IV Amt: 93 ml opti 320 EXAM: CT Abdomen and Pelvis With Intravenous Contrast CLINICAL HISTORY: Abdominal Pain with nausea and vomiting TECHNIQUE: Axial computed tomography images of the abdomen and pelvis with intravenous contrast. CTDI is 20.43 mGy and DLP is 963.63 mGy-cm. Automated exposure control was utilized for the study. A dose lowering technique was utilized adhering to the principles of ALARA. CONTRAST: Patient received gastro of Oral - High Density and 93 ml opti 320 of IV contrast COMPARISON: CT abdomen and pelvis 08/31/2019 FINDINGS: Lung bases: Unremarkable. No mass. No consolidation. Pleural space: Trace right pleural effusion. ABDOMEN: Liver: Unremarkable. No mass. Gallbladder and bile ducts: Unremarkable. No calcified stones. No ductal dilation. Pancreas: Unremarkable. No mass. No ductal dilation. Spleen: Unremarkable. No splenomegaly. Adrenals: Unremarkable. No mass. Kidneys and ureters: Suspect punctate nonobstructing right renal calculus. No hydronephrosis of either kidney. Simple appear left renal cyst is present, no follow up is needed. The kidneys are otherwise unremarkable. Stomach and bowel: Small-bowel obstruction with a transition point in the right lower quadrant. There are bilateral inguinal hernias, the right contains decompressed loops of small bowel and the left contains a small amount of fluid without bowel in the left hernia. No mucosal thickening. PELVIS: Appendix: No findings to suggest acute appendicitis. Bladder: Bladder calculi are present. No mass. Reproductive: Nonspecific prostate gland enlargement. ABDOMEN and PELVIS: Intraperitoneal space: Minimal free fluid in the pelvis is nonspecific. No free air. Bones/joints: Age-indeterminate severe L2 compression fracture with 5 mm of retropulsion resulting in mild spinal canal stenosis. Slightly worsened moderate L4 compression fracture. There is a right hip prosthesis. Avascular necrosis of the left femoral head. No dislocation. Soft tissues: Unremarkable. Vasculature: Moderate atherosclerosis. No aneurysm. Lymph nodes: Unremarkable. No enlarged lymph nodes. IMPRESSION: 1. Small-bowel obstruction with a transition point in the right lower quadrant. 2. There are bilateral inguinal hernias, the right contains decompressed loops of small bowel and the left contains a small amount of fluid without bowel in the left hernia. 3. Suspect punctate nonobstructing right renal calculus. No hydronephrosis of either kidney. 4. Age-indeterminate severe L2 compression fracture with 5 mm of retropulsion resulting in mild spinal canal stenosis. 5. Slightly worsened moderate L4 compression fracture. 6. Nonspecific prostate gland enlargement. 7. Bladder calculi are present. 8. Minimal free fluid in the pelvis is nonspecific. 9. Avascular necrosis of the left femoral head. 10. Trace right pleural effusion. Electronically signed by: Alejandra Beltran MD 01/13/25 01:50 AM Chest X-Ray 01/14/25 02:28 EXAM: XR chest 1V portable CLINICAL HISTORY: Patient removed NG tube- new tube placed. TECHNIQUE: An X-ray image of the chest is obtained in AP projection. COMPARISON: 01/13/2025. FINDINGS: NG tube placement reaching below the left hemidiaphragm with its tip at the stomach. Pulmonary Parenchyma: Atelectatic band in the right upper lung zone. Otherwise, lungs show no evidence of consolidation, collapse, or focal opacities. No pulmonary nodules are identified. No evidence of pleural effusion or pleural thickening. Heart and Mediastinum: Heart size and shape are normal. No mediastinal widening or masses. No hilar or mediastinal lymphadenopathy. Bony Thorax: Bony thorax appears intact without fractures or deformities. Soft Tissues: Soft tissues overlying the chest wall are unremarkable. IMPRESSION: 1. The nasogastric tube is in the proper position with its tip terminating in the stomach. 2. No acute cardiopulmonary abnormality. 3. Atelectatic band in the right upper lung zone. 4. No other significant changes compared to the prior study, dated 01/13/2025 Electronically signed by Denny Lui 01-14-2025 07:43 AM KUB X-Ray 01/15/25 07:23 KUB HISTORY: Small bowel obstruction sbo COMPARISON: KUB 01/13/2025, CT abdomen and pelvis 01/12/2025 FINDINGS: Persistent small bowel obstruction with dilated air-filled loops of small bowel measuring up to 4.3 cm, previously 4.6 cm. Distal tip of enteric tube projects over the stomach. Arterial calcifications are noted. No renal calculi. No ureteral calculi. No pneumoperitoneum or pneumatosis. Right hip arthroplasty. No fracture. IMPRESSION: 1. Distal tip of enteric tube projects over the stomach. 2. Persistent small bowel obstruction with bowel distention appearing stable to slightly improved compared to 01/13/2025. ACT 112: Negative or not required by law. The above report was generated using voice recognition software. It may contain grammatical, syntax or spelling errors. Electronically signed by: Brent Alvarez M.D. 01/15/2025 8:55 AM Medications Administered Current Inpatient Medications Acetaminophen (Acetaminophen 500 Mg Tab) 1,000 mg PO Q8H PRN PRN Reason: Pain or Fever Stop: 02/13/25 00:00 Albuterol (Albuterol 0.5% Neb Soln 2.5 Mg/0.5 Ml Vial) 2.5 mg INH QID PRN PRN Reason: shortness of breath or wheezing Stop: 02/08/25 20:27 Last Admin: 01/14/25 07:01 Dose: 2.5 mg Albuterol (Albut/Ipratrop 3mg/0.5mg Neb 3 Ml Vial) 3 ml NEB QIDR [facility]; Protocol Stop: 02/13/25 10:59 Last Admin: 01/15/25 11:47 Dose: 3 ml Bisacodyl (Bisacodyl 10 Mg Supp) 10 mg CO DAILY PRN PRN Reason: constipation Stop: 02/11/25 13:09 Bupropion HCl (Bupropion Sr 150 Mg Tabcr) 150 mg PO BID [facility] Stop: 02/08/25 20:59 Last Admin: 01/12/25 22:31 Dose: 150 mg Cetirizine HCl (Cetirizine Hcl 10 Mg Tablet) 10 mg PO DAILY PRN PRN Reason: Allergy Symptoms Stop: 02/08/25 20:25 Formoterol Fumarate (Formoterol 20 Mcg/2 Ml Vial) 20 mcg NEB BIDR [facility] Stop: 02/13/25 18:59 Last Admin: 01/15/25 07:05 Dose: 20 mcg Cefepime HCl (Maxipime 2000mg) 2,000 mg in 20 mls @ 5 mls/min IV Q12H [facility]; Protocol Stop: 01/17/25 04:59 Last Admin: 01/15/25 05:58 Dose: 5 mls/min Potassium Chloride/Dextrose/Sod Cl (D5w And 1/2nss + 20meq Kcl) 20 meq in 1,000 mls @ 125 mls/hr IV .Q8H [facility] Stop: 01/15/25 16:59 Last Admin: 01/15/25 08:57 Dose: Not Given Thiamine HCl 100 mg/ Syringe 10 mls @ 2 mls/min IV QAM [facility] Stop: 02/12/25 08:59 Last Admin: 01/15/25 08:56 Dose: 2 mls/min Acetaminophen (Ofirmev) 1,000 mg in 100 mls @ 400 mls/hr IV Q8H PRN PRN Reason: Pain or Fever Stop: 01/17/25 00:07 Last Infusion: 01/15/25 05:14 Dose: Infused Prochlorperazine 5 mg/ Syringe 5 mls @ 5 mls/min IV Q4H PRN PRN Reason: Nausea And Vomiting Stop: 02/11/25 13:08 Potassium Chloride (K Huang / Wtr) 10 meq in 100 mls @ 100 mls/hr IV Q1H [facility] Stop: 01/15/25 16:29 Lorazepam (Lorazepam 2 Mg/1 Ml Vial) 1 mg IV ONE PRN; Protocol PRN Reason: EtoH Withdrawal AWSS 6-10 Magnesium Oxide (Magnesium Oxide 400 Mg Tab) 400 mg PO DAILY [facility] Stop: 02/09/25 08:59 Last Admin: 01/12/25 09:00 Dose: 400 mg Metoprolol Succinate (Metoprolol Succ 50mg Ext Rel Tab) 50 mg PO DAILY [facility] Stop: 02/09/25 08:59 Last Admin: 01/12/25 09:00 Dose: 50 mg Metoprolol Tartrate (Metoprolol Tartrate 1 Mg/Ml Vial) 2.5 mg IV Q6 [facility] Stop: 02/12/25 11:59 Last Admin: 01/15/25 12:06 Dose: 2.5 mg Miscellaneous (Remove Nicoderm Patch) 1 each N/A DAILY@0859 [facility] Stop: 02/10/25 08:58 Last Admin: 01/15/25 08:55 Dose: 1 each Multivitamins (Multivitamin Tab) 1 tab PO DAILY [facility] Stop: 02/09/25 08:59 Last Admin: 01/12/25 09:00 Dose: 1 tab Nicotine (Nicotine 21 Mg/24 Hr Tdsy) 1 patch TD QAM [facility] Stop: 02/09/25 12:59 Last Admin: 01/15/25 08:55 Dose: 1 patch Ondansetron HCl (Ondansetron Inj 2 Mg/Ml 2 Ml Vial) 4 mg IV Q6H PRN PRN Reason: Nausea Stop: 02/08/25 20:25 Last Admin: 01/14/25 19:30 Dose: 4 mg Oxycodone HCl (Oxycodone Hcl Ir 5 Mg Tab (Immediate Release)) 5 mg PO Q4H PRN PRN Reason: Pain unrelieved by percocet Stop: 01/24/25 12:51 Last Admin: 01/11/25 14:25 Dose: 5 mg Oxycodone/Acetaminophen (Oxycodone/Acetaminophen 10-325 Tab) 1 tab PO Q6H PRN PRN Reason: Moderate Pain (Scale 4, 5, 6) Stop: 01/23/25 20:25 Last Admin: 01/12/25 03:35 Dose: 1 tab Polyethylene Glycol (Polyethylene (Miralax) 17 Gm Pack) 17 gm PO DAILY [facility] Stop: 02/11/25 13:14 Last Admin: 01/12/25 15:38 Dose: Not Given Potassium Chloride (Potassium Chloride 10 Meq Tabcr) 10 meq PO DAILY [facility] Stop: 02/09/25 08:59 Last Admin: 01/12/25 09:00 Dose: 10 meq Rivaroxaban (Rivaroxaban 10 Mg Tablet) 10 mg PO QPM [facility] Stop: 02/08/25 20:59 Last Admin: 01/12/25 22:31 Dose: 10 mg Sennosides (Senna 8.6 Mg Tab) 17.2 mg PO HS [facility] Stop: 02/11/25 13:09 Last Admin: 01/12/25 22:31 Dose: 17.2 mg PG Care Time/CCT Total # of Minutes Spent Total Time Spent with Patient: Total time spent is greater than 50% in coordination of care (as documented) at patient's floor/unit and/or counseling patient: Coding [place] [address] SUB INP/OBS CARE 2/35MIN Patient Type Established Medical Decision Making Low Complexity Diagnoses Palliative care by specialist Z51.5 Counseling regarding goals of care Z71.89
[2025-01-15] MEDS: OPTIRAY 320 125ml IV ONE (13:14)
[2025-01-15] MEDS: POTASSIUM CHLORIDE / WTR 10 MEQ/100 ML PLCT IV SCH (14:45)
--- NOTE | 2025-01-15 16:02 | Hospitalist Progress Note ---
Date of Service January 15, 2025 Assessment & Plan (1) Sepsis: (2) Cellulitis of both lower extremities: (3) Chronic ulcer of right foot with fat layer exposed: (4) PAD (peripheral artery disease): (5) SBO (small bowel obstruction): Plan 64-year-old man with endstage COPD, severe PAD, recent admission for SSTI of chronic foot/leg wounds complicated by Morganella bacteremia. Admitted with severe bilateral LE cellulitis and new large bullae of bilateral LE. Cellulitis had started to improve on cefepime when he developed acute SBO on 01/12. Acute small bowel obstruction - developed on 01/12. Confirmed by CT, NG tube placed. -exam and symptoms improving after NG placement - small amount of flatus and +BT today, remains obstructed on my review of KUB film and continues to have high NG output -consulted general surgery - reviewed recs in note 01/15 -continue conservative care with NG to LIS, IV fluids, IV antiemetics -high risk of respiratory failure if he develops a complicating aspiration pneumonia or distention compromises his breathing, high risk surgical candidate because of his severe lung disease - highly likely unable to be extubated and would require trach. Also severe diffuse vascular disease Sepsis due to bilateral lower extremity cellulitis, right greater than left- sepsis resolved Bilateral LE acute and chronic foot wounds Recent RIGHT foot MRI negative for osteo. LEFT 1st MTP looks concerning at the moment Wound culture polymicrobial - no MRSA and all orgs sens to cefepime -continue Consulted wound care Bilateral LE cellulitis significantly improved Peripheral arterial disease- Arterial duplex studies showed greater than 75% stenosis of the left proximal femoral artery, disease also present on the right Left foot is ischemic but chronically so, PAD inhibits healing of both feet Consulted vascular surgery - seen 01/[address] Worley Podiatry consult a few weeks ago, no debridement recommended and R foot osteo ruled out by MRI. Vascular recommending podiatry consult CTA LE - completed today and report pending Acute exacerbation of COPD- mild exacerbation POA resolved, endstage COPD and FEV1 is around 0.5 92% on RA Continue inhalers and nebulizers. Has been refusing his maintenance inhalers so ordered formoterol nebs. Refusing inhaled steroid Seems to be at his baseline Updated Dr. Goncalves 01/14 Atrial fibrillation- stable Continue metoprolol and Xarelto History of alcohol abuse- Does not want to stop drinking. Early hospital course had beet tid with meals. Monitor for signs of withdrawal - none so far. Has AWSS and prn lorazepam while NPO nicotine tobacco dependence nicotine patch hyponatremia - mild-mod, chronic and probably SIADH from severe COPD, also has oral furosemide. Monitor BMP - 143 normal today hypokalemia - 3.4 replaced IV. 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 Can stand to transfer but cannot walk. Seems to be multifactorial including leg weakness, wounds, very severe COPD DVT ppx - on DOAC Goals of care - Harlan unfortunately has very severe medical comorbidities and in addition to the ongoing challenges with PAD/chronic wounds/SSTIs he has developed an SBO. Overall prognosis from his lung disease poor (though currently stable). Prognosis for healing foot wounds also poor, though immediate infection improving. There is an extremely high chance of morbidity and mortality were he to undergo surgical intervention for SBO. I consulted palliative care 01/14 and appreciate evaluation and input. Since last night he has made conflicting statements about his wishes and I had a long, detailed conversation with him this afternoon. Previously he had told me that he would not want to be intubated because he did not want to have tracheostomy and mechanical ventilation. Today he did tell me the opposite. I did describe the process, recovery, and changes to QOL this would ensue in a good amount of detail and he maintains preference for intubation if necessary. We did discuss CPR and he said both that he wouldn't want heroic efforts if it was going to be futile, then later said if there was a reasonable chance of recovery: "light me up" [ie full code]. I explained that in my experience his chance for meaningful recovery from CPR would be very low and I described the likely outcome were he to survive hospitalization. He is not sure what he wants and says he needs to think about it more and talk to his . I encouraged him strongly to talk to his erasmo, reiterated that she will be his medical decision maker if he cannot decide for himself, and that it would be a gift to her if he could tell her his wishes before a crisis. Full code at this point since he can not confirm DNR and states he wants to be intubated if necessary. RN Carriere at bedside throughout and discussed with [facility]. A meeting with his present in the near future would be ideal. Admission and Anticipated Discharge Date Admission Date: January 09, 2025 Subjective Abdomen is not painful, no nausea Passing a little bit of gas Shortness of breath is at his baseline RLE remains painful but james/ankle much less so than on admission Overall feels pretty good Physical Exam 2 Physical Exam: Last 24h vitals reviewed GEN: resting in bed awake HEENT: pupils equal, sclerae anicteric, NG tube RESP: increased WOB which is baseline, I can hear bilateral ant breath sounds (an improvement) which are clear CV: reg no mrg distant ABD: mildly distended, quiet bowel sounds present, nontender, bilateral inguinal hernias and periumbilical hernia - not inflamed/soft : no cope EXT: extensive bilateral LE wounds -examined 01/15 Cellulitis massively improved, area around L great toe and MTP remains more erythematous and boggy but not red or tender. Wounds overall look improved - extensive, bilateral. NEURO: AOx person, place, and situation. Face symmetric, speech normal, moves 4 ext spontaneously and equally Results & Data Results & Data Vital Signs (Past 12 Hours) Vital Signs Temp Pulse Pulse Resp BP BP Pulse Ox 01/15/25 15:01 93 H 20 96 01/15/25 12:21 98 H 01/15/25 12:06 99 H 121/71 01/15/25 11:48 94 H 20 93 01/15/25 10:44 36.9 C 87 19 118/75 96 01/15/25 08:00 94 H 01/15/25 08:00 01/15/25 07:14 36.7 C 91 H 20 108/74 94 01/15/25 07:05 94 H 20 90 01/15/25 06:13 90 107/70 01/15/25 05:58 96 H 119/77 01/15/25 04:25 108 H O2 Del Method O2 Flow Rate 01/15/25 15:01 Nasal Cannula 0.5 01/15/25 12:21 01/15/25 12:06 01/15/25 11:48 Nasal Cannula 0.5 01/15/25 10:44 Nasal Cannula 0.5 01/15/25 08:00 01/15/25 08:00 Nasal Cannula 0.5 01/15/25 07:14 Nasal Cannula 1 01/15/25 07:05 Nasal Cannula 0.5 01/15/25 06:13 01/15/25 05:58 01/15/25 04:25 Laboratory Results 01/15/25 06:41 01/15/25 06:41 PG Care Time/CCT Total # of Minutes Spent Total Time Spent with Patient: I personally spent: 65 minutes today on clinical care activities including: reviewing chart notes and vital signs reviewing labs reviewing studies discussion with community health consultant(s) examining and counseling the patient writing orders documentation Coding Level of Care Code 68444 SUB INP/OBS CARE 3/50MIN Diagnoses Sepsis A41.9 Cellulitis of both lower extremities L03.115; L03.116 Chronic ulcer of right foot with fat layer exposed L97.512 PAD (peripheral artery disease) I73.9 SBO (small bowel obstruction) K56.609
[2025-01-16 07:01] LABS: Hematocrit (blood only) 37.3 % (42.0-52.0); Hemoglobin 12.0 g/dl (14.0-18.0); Mean Corpuscular Hemoglobin 31.6 pg (25.0-34.0); Mean Corpuscular Volume 98.2 fL (80.0-100.0); Platelet Count 328 K/uL (130-400); RDW Standard Deviation 49.4 fL (36.4-46.3); Red Blood Count 3.80 M/uL (4.70-6.10); White Blood Count 7.75 K/ul (4.8-10.8)
[2025-01-16 08:26] LABS: Anion Gap 4.0 (3-11); Blood Urea Nitrogen 9.0 mg/dl (6-23); Calcium 8.5 mg/dl (8.6-10.3); Carbon Dioxide 45.0 mmol/L (21-32); Chloride 96.0 mmol/L (98-107); Creatinine Clr Calc Pharmacy 100.1 ml/min; Glucose 129.0 mg/dl (70-99(Fasting)); Magnesium 2.2 mg/dl (1.7-2.4); Potassium 2.9 mmol/L (3.5-5.1); Sodium 145.0 mmol/L (136-145)
[2025-01-16] MEDS: POTASSIUM CHLORIDE / WTR 10 MEQ/100 ML PLCT IV SCH (09:42)
--- NOTE | 2025-01-16 10:00 | Pulmonary Consultation ---
Date of Consultation January 16, 2025 Assessment & Plan (1) Counseling regarding goals of care: (2) SBO (small bowel obstruction): (3) COPD (chronic obstructive pulmonary disease): COPD type: emphysema Emphysema type: unspecified Qualified Code(s): J43.9 - Emphysema, unspecified (4) Chronic bronchitis: (5) Tobacco dependence: (6) Chronic respiratory failure with hypoxia and hypercapnia: Plan CTA chest 12/14/2024 personally reviewed: Centrilobular paraseptal emphysema appreciated bilaterally Right upper lobe linear atelectasis with some scarring Atelectasis of the right lower lobe No significant mediastinal lymphadenopathy 2D echo 12/18/2024: EF 60-65%, normal diastolic function, RV not well-visualized with normal function Spirometry 01/28/2023 personally reviewed: Very severe obstructive lung dysfunction FVC 1.48 L 35%, FEV1 0.56 L 18%, FEV/FVC 38% -- COPD with emphysema and chronic bronchitis Gold E, end-stage Alpha-1 level and phenotype within normal limit 01/28/2023 Was supposed to be on nebulized Brovana budesonide and Yupelri but unfortunately other than budesonide other inhalers were expensive I will change it back to BrezTri on discharge Respiratory BioFire negative for everything on 12/14/2024 QTc 518, not a good candidate for chronic azithromycin therapy Absolute eosinophil count only 10 on 12/14/2024 Patient will be a candidate for AVAPS but unfortunately he says he will not be able to tolerate anything on his face He has tried BiPAP in the past and he would not want anything such to help with his breathing -- Current smoker [id number] smoking history Currently smoking 2 packs a day Reports of quitting explained to the patient in depth -- History of necrotizing pneumonia right upper lobe January 2019 --A-fib On Xarelto Plan: The purpose of today's consult was goals of care planning especially with recurrent admissions. Patient does have very severe COPD with FEV1 18%, end-stage COPD would be the other term used for it. He will be a very high risk for intubation or for any surgical procedure. Patient is aware of his severe COPD and he does understand that if he gets intubated he might not make it but he would like to given 1 shot. If he needs prolonged ventilation that he would like to be disconnected from the ventilator and kept comfortable He was clear that he does not want trach and PEG. Case was discussed with primary team, palliative team as well as RN at bedside Continue with nebulized bronchodilators while in the hospital Try to keep O2 saturation between 90-92% I have personally spent 32 minutes of critical care time in the direct management of this patient. This is a life/limb threatening event. This includes time spent evaluating patient, direct bedside care, chart review, placing orders, interpretation of diagnostic studies, discussion with consultants, patient, and family members, as well as other required patient management activities. This time is exclusive of all separately billable procedures, and teaching time and separate from and in addition to any other critical care service time. Please note the above document was generated using voice recognition software. It may contain grammatical, syntax or spelling errors. Please note the above document was generated using voice recognition software. It may contain grammatical, syntax or spelling errors.Any formal questions or concerns about the content, text or information contained within the body of this dictation should be directly addressed to the provider for clarification. History of Present Illness Attending Physician: Ruiz Gallardo MD History of Present Illness 64-year-old male admitted to the hospital for worsening shortness of breath Past medical history: Diastolic CHF, A-fib on Xarelto, COPD At the time of examination patient was resting comfortably on the bed He was saturating 96% on 1 L oxygen He had an NG tube to suction. He still complains of some abdominal pain. Unfortunately he is only using albuterol nebulizer and budesonide nebulized at home as other nebulizers he was not able to afford He did not let my office know that the nebulizers were not covered so we were not able to make any changes but I did educate him that in future if anything is not covered just let the office know so that we can do the needful When it comes to his breathing he said he is at his baseline. He is not able to walk much because of the issues with his legs and wound. Denies any unusual headache or blurry vision Has been passing gas but no bowel movements Social history: Greater than [id number] smoker, actively smoking, daily alcohol use, denies any illicit drug use. 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 [employer]ia[employer] following that Pets: Has a cat and a dog at home Allergies: Seasonal Asthma: No personal or family history of Lung cancer: No history of lung cancer in the family Allergies Allergy/AdvReac Type Severity Reaction Status Date / Time erythromycin base Allergy Intermediate hives or Verified 12/14/24 17:58 diarrhea Penicillins Allergy Intermediate hives or Verified 12/14/24 17:58 diarrhea NITRATES IN PROCESSED MEATS Allergy Severe Difficulty Uncoded 12/14/24 17:58 Breathing Home Medications Medication Instructions Recorded Confirmed Type cetirizine 10 mg tablet 10 mg PO DAILY PRN Allergy Symptoms 12/29/18 01/09/25 History multivitamin (Daily-Deanne tablet) 1 tab PO DAILY 07/20/20 01/09/25 History ibuprofen 200 mg capsule 400 mg PO Q6H PRN Pain 06/24/22 01/09/25 History magnesium 250 mg tablet 250 mg PO DAILY 09/16/22 01/09/25 History nebulizers #1 ea 12/23/22 01/09/25 Rx guaifenesin 600 mg tablet, 600 mg PO BID PRN congestion #60 01/28/23 01/09/25 Rx extended release 12 hr (Mucinex) tabs albuterol sulfate 1.25 mg/3 mL 1.25 mg (3 mL) inhalation QID PRN 03/31/23 01/09/25 Rx solution for nebulization shortness of breath or wheezing #360 mL potassium chloride 10 mEq 10 meq PO DAILY #90 tabs 06/08/24 01/09/25 Rx tablet,extended release (Klor-Con) rivaroxaban 10 mg tablet (Xarelto) 10 mg PO QPM #90 tabs 06/27/24 01/09/25 Rx metoprolol succinate 50 mg 50 mg PO DAILY #90 tabs 10/19/24 01/09/25 Rx tablet,extended release 24 hr bupropion HCl 150 mg tablet,12 hr 150 mg PO BID #60 ea 11/08/24 01/09/25 Rx sustained-release (Wellbutrin SR) albuterol sulfate 90 mcg/actuation 2 puff inhalation Q4H PRN 11/26/24 01/09/25 Rx aerosol inhaler (Ventolin HFA) Shortness Of Breath Or Wheezing #18 grams furosemide 20 mg tablet (Lasix) 20 mg PO BID edema #120 tabs 12/28/24 01/09/25 Rx oxycodone-acetaminophen 10 mg-325 1 tab PO Q6H PRN pain #60 tabs 01/09/25 01/09/25 Rx mg tablet (Percocet) budesonide 160 mcg-glycopyr 9 2 inh inhalation BID #10.7 grams 01/16/25 Rx mcg-formot 4.8 mcg/actuation HFA inhaler (Breztri Aerosphere) Patient History Medical History Back pain HX L2 FRACTURE>HEALED Leg cramps AT NIGHT Congestive heart failure Atrial fibrillation FOLLOWED BY [facility] COPD (chronic obstructive pulmonary disease) Surgical History History of total hip arthroplasty RT H/O abdominal surgery X 2 ? EXPLORATORY>MARTITA TAO, ABDOMINAL BENIGN MASS REMOVED A CHILD History of tonsillectomy History of tooth extraction Hx of appendectomy Family History Father Hairy cell leukemia Myocardial infarction Colorectal cancer Mother Multiple myeloma Other No family history of adverse response to anesthesia Denies family history of Ovarian cancer Prostate cancer Breast cancer Social History Smoking Status: Current every day smoker Tobacco Type: Cigarettes Age Started Using Tobacco: 16; packs per day: 1; Cigarettes Per Day: 30; Second Hand Exposure: Yes; Do You Dip or Chew Tobacco: No; Hx Alcohol Use: Yes Alcohol type: beer Alcohol Intake Frequency: 4 or More x per/Week Alcohol Intake Frequency Comment: 36-48 ounces of beer a day Hx Substance Use: No Preferred Language: Bolivian Communication Ability: Effective Pipe Layer Required: No Beliefs That Will Affect Care: None marital status: marital status details: no children Current Living Situation: Spouse Current Living Situation Comment: lives in [place] by himself current occupational status: disabled other: 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 Feels Safe at Home: Yes caffeine: Yes Dental Care, Regularly: No Physical Activity Frequency: Does not Exercise Seatbelt Use: always Sunscreen Use: No Assistive Devices: Glasses, Walker and Wheelchair Review of Systems 2 Review of Systems: All systems reviewed & are unremarkable except as noted in HPI & below Physical Exam 2 Physical Exam: Constitutional: No acute distress HEENT: EOMI, PERRLA Respiratory system: Decreased air entry bilaterally, positive expiratory wheeze bilaterally, no rhonchi, mild crackles bilateral lower lobe CVS: S1-S2 positive, no murmurs or gallops Abdomen: Soft, nontender, nondistended, positive bowel sounds x4 Extremities: +2 pulses bilaterally radialis/+1 bilateral dorsalis pedis, no cyanosis, minimal pitting edema bilateral lower extremity Neuro: Awake alert oriented x3 Psych: Normal mood and affect G/U: No [place] Skin: no rashes, warm and dry Lymphatic: no cervical or axillary lymphadenopathy Results & Data Results & Data Vital Signs (Past 12 Hours) Vital Signs Temp Pulse Pulse Resp BP BP Pulse Ox 01/16/25 08:00 76 01/16/25 08:00 01/16/25 08:00 36.6 C 79 18 122/77 96 01/16/25 07:24 84 18 93 01/16/25 06:45 86 01/16/25 06:28 77 125/79 01/16/25 03:10 36.7 C 87 20 122/80 97 01/16/25 00:05 80 109/68 01/15/25 23:51 100 H 118/71 01/15/25 22:49 36.9 C 92 H 18 105/64 93 O2 Del Method O2 Flow Rate 01/16/25 08:00 01/16/25 08:00 Nasal Cannula 0.5 01/16/25 08:00 Nasal Cannula 01/16/25 07:24 Nasal Cannula 0.5 01/16/25 06:45 01/16/25 06:28 01/16/25 03:10 Nasal Cannula 01/16/25 00:05 01/15/25 23:51 01/15/25 22:49 Nasal Cannula Laboratory Results 01/16/25 06:46 01/16/25 06:46 PG Care Time/CCT Total # of Minutes Spent Total Time Spent with Patient: Total time spent is greater than 50% in coordination of care (as documented) at patient's floor/unit and/or counseling patient: Coding Level of Care Code 03832 CRITICAL CARE 1ST 30-74M Diagnoses Counseling regarding goals of care Z71.89 SBO (small bowel obstruction) K56.609 Pulmonary emphysema, unspecified emphysema type J43.9 COPD type: emphysema Emphysema type: unspecified Chronic bronchitis J42 Tobacco dependence F17.200 Chronic respiratory failure with hypoxia and hypercapnia J96.11; J96.12
--- NOTE | 2025-01-16 10:05 | Surgery Progress Note ---
Date of Service January 16, 2025 Assessment & Plan (1) SBO (small bowel obstruction): Plan: Keep NG tube in place today Will order a small bowel follow-through Will follow-up these results Will follow Admission and Anticipated Discharge Date Admission Date: January 09, 2025 Subjective Patient seen and examined. Denies abdominal pain. He is passing flatus, more than yesterday but no BM. Denies any nausea or vomiting. Review of Systems Constitutional: no fever and no chills Respiratory: no cough and no dyspnea Cardiovascular: no chest pain and no dyspnea on exertion Gastrointestinal: + constipation; no abdominal pain, no na usea, no vomiting and no diarrhea/loose stools Genitourinary: no dysuria or no nocturia Integumentary: no acne, no skin ulcer and no erythema Psychiatric: no behavioral changes and no depression Physical Exam Constitutional: WD/WN, vitals as above Eyes: PERRL, conjunctivae normal, anicteric sclerae ENMT: external ear and nose normal, oropharynx normal Neck: trachea midline, no thyromegaly Respiratory: normal respiratory effort, lungs clear to auscultation Cardiovascular: RRR, no murmur, no edema Gastrointestinal (Abdomen): Inspection/Auscultation: abdomen normal to inspection and + abdomen distended Percussion/Palpation: abdomen soft; abdomen nontender and no guarding Musculoskeletal: no cyanosis or clubbing, extremities motor strength 5/5 Skin: no rashes, warm and dry Psychiatric: A+Ox3, euthymic affect Results & Data Vital Signs (Past 12 Hours) Vital Signs Temp Pulse Pulse Resp BP BP Pulse Ox 01/16/25 08:00 76 01/16/25 08:00 01/16/25 08:00 36.6 C 79 18 122/77 96 01/16/25 07:24 84 18 93 01/16/25 06:45 86 01/16/25 06:28 77 125/79 01/16/25 03:10 36.7 C 87 20 122/80 97 01/16/25 00:05 80 109/68 01/15/25 23:51 100 H 118/71 01/15/25 22:49 36.9 C 92 H 18 105/64 93 O2 Del Method O2 Flow Rate 01/16/25 08:00 01/16/25 08:00 Nasal Cannula 0.5 01/16/25 08:00 Nasal Cannula 01/16/25 07:24 Nasal Cannula 0.5 01/16/25 06:45 01/16/25 06:28 01/16/25 03:10 Nasal Cannula 01/16/25 00:05 01/15/25 23:51 01/15/25 22:49 Nasal Cannula PG Care Time/CCT Total # of Minutes Spent Total Time Spent with Patient: Total time spent is greater than 50% in coordination of care (as documented) at patient's floor/unit and/or counseling patient: Coding Level of Care Code 75997 SUB INP/OBS CARE 06/16MIN Diagnoses SBO (small bowel obstruction) K56.609
--- NOTE | 2025-01-16 11:01 | Hospitalist Progress Note ---
Date of Service January 16, 2025 Assessment & Plan (1) Sepsis: (2) SBO (small bowel obstruction): (3) Hypokalemia: (4) Cellulitis: (5) Esophagitis: (6) Paraplegia: Plan 64yo male with endstage COPD, severe PAD, recent admission for SSTI of chronic foot/leg wounds complicated by Morganella bacteremia. Admitted with severe bilateral LE cellulitis and new large bullae of bilateral LE. #Acute small bowel obstruction - -developed on 01/12 -s/p NG tube placement -passing minimal amounts of flatus but no stool yet -upper GI with small bowel follow-through - resolving SBO, some contrast reached the colon -appreciate gen surg assistance -defer NG tube management and initiation of a diet to gen surg -replace low K #Sepsis due to bilateral lower extremity cellulitis, right greater than left -sepsis resolved -cellulitis resolved b/l -b/l james & foot wounds - continue local wound care -wound culture - pseudomonas, providencia, and alcaligenes -cont IV cefepime #Peripheral arterial disease - -Arterial duplex studies showed greater than 75% stenosis of the left proximal femoral artery, disease also present on the right -CTA aorta with run-off - also confirms severe b/l PAD -Consulted vascular surgery - seen 01/[address] Worley -await final recs from vascular, but very poor candidate for intervention given his numerous other acute/chronic issues -ideally should be on aspirin and statin #Acute exacerbation of COPD - -appreciate Dr Goncalves's consultation -cont formoterol BID -cont budesonide BID -incentive stephanie and flutter if able #Atrial fibrillation - -Continue metoprolol IV -Xarelto on hold due to NPO status/NG tube #History of alcohol abuse - -no signs of etoh withdrawal #nicotine dependence - -nicotine patch #hyponatremia - resolved -lowest Na level was 130 -now 145 -cont 1/2NS #hypokalemia - -worse today -2nd to GI losses, no PO intake nutritionally, etc. -give IV KCL -mag level wnl today -repeat BMP with mag in am tomorrow #Functional paraplegia - -has not ambulated in several years since his right hip fracture with repair in 2019 -wheelchair dependent at baseline DVT proph - if he remains NPO another day start DVT proph with heparin or lovenox SC appreciate assistance by palliative care & pulmonary to refine goals of care, code status, etc. at this time patient wishes to remain full code Admission and Anticipated Discharge Date Admission Date: January 09, 2025 Subjective patient lying in bed comfortably continues with copious NG tube output passing small amount of flatus about 1x/hour no stool yet denies pain in legs has not walked since breaking his hip several years ago wheelchair dependent denies dyspnea at rest during the visit nursing staff removed old dressings wounds are all improved and b/l cellulitis improved Review of Systems Review of Systems: gen - no fevers cv - no chest pain pulm - no wheezing GI - no pain despite the SBO Physical Exam Physical Exam: gen - chronically ill-appearing but NAD neck - no JVD mouth - MMM heart - RRR, s1 s2 lungs - minimal crackle bases, no significant wheeze, no increased work of breathing abd - distended, BS+, NT, no HSM ext - cap refill b/l feet about 2+; pulses b/l feet barely palpable; popliteal pulses b/l 1+ or less; no edema of legs skin - multiple ulcerations RLE; a few ulcerations LLE; cellulitis resolved of b/l shins; no malodor today psych - a/o x 3 Results & Data Results & Data Vital Signs (Past 12 Hours) Vital Signs Temp Pulse Pulse Resp BP BP Pulse Ox 01/16/25 10:57 70 18 94 01/16/25 08:00 76 01/16/25 08:00 01/16/25 08:00 36.6 C 79 18 122/77 96 01/16/25 07:24 84 18 93 01/16/25 06:45 86 01/16/25 06:28 77 125/79 01/16/25 03:10 36.7 C 87 20 122/80 97 01/16/25 00:05 80 109/68 01/15/25 23:51 100 H 118/71 O2 Del Method O2 Flow Rate 01/16/25 10:57 Nasal Cannula 0.5 01/16/25 08:00 01/16/25 08:00 Nasal Cannula 0.5 01/16/25 08:00 Nasal Cannula 01/16/25 07:24 Nasal Cannula 0.5 01/16/25 06:45 01/16/25 06:28 01/16/25 03:10 Nasal Cannula 01/16/25 00:05 01/15/25 23:51 Laboratory Results Laboratory Results - last 48 hr 01/16/25 06:46 WBC 7.75 RBC 3.80 L Hgb 12.0 L Hct 37.3 L MCV 98.2 MCH 31.6 MCHC 32.2 RDW Std Deviation 49.4 H RDW Coeff of Jm 13.6 Plt Count 328 MPV 9.3 L Sodium 145 Potassium 2.9 L Chloride 96 L Carbon Dioxide 45 H* Anion Gap 4 BUN 9 Creatinine 0.70 Est Cr Clr Drug Dosing 100.1 eGFR 103.53 BUN/Creatinine Ratio 12.9 Glucose 129 H Calcium 8.5 L Magnesium 2.2 Diagnostic Findings Aorta w/Runoff CTA 01/15/25 13:00 CT ang AA runof w inc ana coloradodon HISTORY: 64 years-old Male deven non healing foot ulcers patient presents with nonhealing ulcers of the feet COMPARISON: CT abdomen and pelvis 01/12/2025 TECHNIQUE: CTA abdomen and pelvis with lower extremity runoff was obtained following the intravenous administration of 112 mL Optiray 320. All measurements were obtained according to NASCET criteria. 3-D coronal and sagittal maps were obtained and submitted for review. A dose lowering technique was used consistent with the principals of NICK. FINDINGS: CTA: Moderate to extensive coronary artery calcifications. Normal caliber of the descending thoracic aorta. Moderate to extensive atherosclerosis is present. Mild ectasia of the infrarenal abdominal aorta without aneurysm, 2.2 x 2.0 cm. Mild stenosis at the origin of the celiac trunk. There is moderate stenosis at the origin of the celiac trunk measuring less than 70%. Duplicated renal arteries are patent but there is at least mild stenosis. Mild stenosis at the origin of the inferior mesenteric artery. Normal caliber of the iliac arteries. 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 Prominent atherosclerosis within this distribution causes high-grade stenosis. Areas of intermediate to high-grade stenosis noted within the bilateral internal iliac arteries. RIGHT LOWER EXTREMITY: High-grade stenosis of the right common iliac artery on image 263 series 3. Patent common femoral artery. Multifocal areas of high-grade stenosis noted within the superficial femoral artery. The popliteal artery is patent. Patent tibioperoneal trunk with three-vessel arterial flow noted to the level of the ankle. LEFT LOWER EXTREMITY: Mild to moderate stenosis of the external iliac artery. The common femoral artery is patent.a possible short segment dissection of the superficial femoral artery in image 422 series 3. Short segment high-grade stenosis of the superficial femoral artery on image 437. The popliteal artery is patent. Patent peroneal trunk with 3 vessel arterial flow noted level of the ankle. CT ABDOMEN/pelvis: Emphysema with bronchial wall thickening and bibasilar mucous plugging. Small right pleural effusion with dependent bibasilar atelectasis. No pneumatosis or pneumoperitoneum. Unremarkable spleen, pancreas, gallbladder and adrenal glands. Unremarkable liver. Kidneys are within normal limits without hydronephrosis. Cyst of the superior pole left kidney again noted. Layering dependent subcentimeter stones within the dependent urinary bladder are again seen. No lymphadenopathy. Mild distal esophageal wall thickening. Enteric tube distal tip terminates within the mid gastric body. Small inguinal hernias are fat filled. A nonobstructed loop of ileum is again seen partially extending into right inguinal hernia. There is decreased small bowel distention. Air and fluid-filled dilated loops of small bowel measuring up to 3.8 cm are again seen within the midabdomen with transition point within the right midabdomen on image 189 series 3. There is swirling within the lower abdominal mesentery. No acute fracture. Right hip arthroplasty. Avascular necrosis of the left hip. L2 and L4 compression deformities are again noted along with unchanged retropulsion. Small fat filled umbilical hernia on image 196. IMPRESSION: 1. Enteric tube distal tip terminates in the stomach. There is persistent small bowel obstruction with probable internal hernia. The degree of small bowel distention has improved compared to the 01/12/2025 study. 2. Moderate to extensive atherosclerosis with areas of high-grade stenosis noted within the iliac and superficial femoral arteries as above. 3. No pneumatosis or pneumoperitoneum. 4. Small right pleural effusion with right lower lobe mucus plugging. 5. Additional findings as above. ACT 112: Negative or not required by law. The above report was generated using voice recognition software. It may contain grammatical, syntax or spelling errors. Electronically signed by: Brent Alvarez M.D. 01/15/2025 3:06 PM Small Bowel X-Ray 01/16/25 10:03 SMALL BOWEL FOLLOW-THROUGH CLINICAL HISTORY: Small bowel obstruction COMPARISON STUDY: Abdominal CT dated 01/12/2025. Abdominal x-ray dated 01/15/2025. TECHNIQUE: An abdominal [employer] advisor radiograph was performed. Approximate 600 cc of a 50/50 mixture of Optiray 320 and water was then injected through the enteric tube and a small bowel follow-through was performed. 5 overhead radiographs were obtained over 2 hours. FINDINGS: The scanogram shows an enteric tube in place. The tip projects below the diaphragm over the gastric fundus. Again seen are distended and gas-filled small bowel which measure up to 5.0 cm. No evidence of intraperitoneal free air is seen on this supine image. Advanced atherosclerotic calcification is noted in the abdominal aorta. There are no abnormal abdominal calcifications. The bony structures appear intact. There is lumbar sacral spondylosis a right hip arthroplasty is in place. On the small bowel follow-through the proximal small bowel loops are significantly distended, and the distal small bowel is relatively decompressed. The transition point is not well delineated by x-ray. This is consistent with a high-grade partial small bowel obstruction. Obstruction is not complete, as enteric contrast reaches the colon at 2 hours. IMPRESSION: 1. High-grade partial small bowel obstruction as above. 2. Enteric contrast reaches the colon at 2 hours. ACT 112: Negative or not required by law. Electronically signed by: Dru Akbar M.D. 01/16/2025 2:35 PM PG Care Time/CCT Total # of Minutes Spent Total Time Spent with Patient: Total time spent is greater than 50% in coordination of care (as documented) at patient's floor/unit and/or counseling patient: Coding Level of Care Code 07810 SUB INP/OBS CARE 3/50MIN Diagnoses Sepsis A41.9 SBO (small bowel obstruction) K56.609 Hypokalemia E87.6 Cellulitis L03.90 Esophagitis K20.90 Paraplegia G82.20
--- NOTE | 2025-01-16 14:36 | Fluoroscopy Report ---
SMALL BOWEL FOLLOW-THROUGH CLINICAL HISTORY: Small bowel obstruction COMPARISON STUDY: Abdominal CT dated 01/12/2025. Abdominal x-ray dated 01/15/2025. TECHNIQUE: An abdominal wood heel fitter machine radiograph was performed. Approximate 600 cc of a 50/50 mixture of Opti ray 320 and water was then injected through the enteric tube and a small bowel follow-through was per formed. 5 overhead radiographs were obtained over 2 hours. FINDINGS: The scanogram shows an enteric tube in place. The tip projects below the diaphragm over the gastric f undus. Again seen are distended and gas-filled small bowel which measure up to 5.0 cm. No evidence of intraperitoneal free air is seen on this supine image. Advanced atherosclerotic calcification is not ed in the abdominal aorta. There are no abnormal abdominal calcifications. The bony structures appear intact. There is lumbar sacral spondylosis a right hip arthroplasty is in place. On the small bowel follow-through the proximal small bowel loops are significantly distended, and the distal small bowel is relatively decompressed. The transition point is not well delineated by x-ray. This is consistent with a high-grade partial small bowel obstruction. Obstruction is not complete, a s enteric contrast reaches the colon at 2 hours. IMPRESSION: 1. High-grade partial small bowel obstruction as above. 2. Enteric contrast reaches the colon at 2 hours. ACT 112: Negative or not required by law. Electronically signed by: Dru Akbar M.D. 01/16/2025 2:35 PM
--- NOTE | 2025-01-16 15:49 | CT Scan Report ---
CT ang AA runof w inc wo alia HISTORY: 64 years-old Male deven non healing foot ulcers patient presents with nonhealing ulcers of th e feet COMPARISON: CT abdomen and pelvis 01/12/2025 TECHNIQUE: CTA abdomen and pelvis with lower extremity runoff was obtained following the intravenous administration of 112 mL Optiray 320. All measurements were obtained according to NASCET criteria. 3- D coronal and sagittal maps were obtained and submitted for review. A dose lowering technique was use d consistent with the principals of NICK. FINDINGS: CTA: Moderate to extensive coronary artery calcifications. Normal caliber of the descending thoracic aorta. Moderate to extensive atherosclerosis is present. Mild ectasia of the infrarenal abdominal aor ta without aneurysm, 2.2 x 2.0 cm. Mild stenosis at the origin of the celiac trunk. There is moderate stenosis at the origin of the celiac trunk measuring less than 70%. Duplicated renal arteries are pa tent but there is at least mild stenosis. Mild stenosis at the origin of the inferior mesenteric brenna ry. Normal caliber of the iliac arteries. 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 Prominent atherosclerosis within this distribution causes high-grade stenosis. Areas of intermediate to high-grade stenosis noted within the bilateral interna l iliac arteries. RIGHT LOWER EXTREMITY: High-grade stenosis of the right common iliac artery on image 263 series 3. Pa tent common femoral artery. Multifocal areas of high-grade stenosis noted within the superficial femo ral artery. The popliteal artery is patent. Patent tibioperoneal trunk with three-vessel arterial khoa w noted to the level of the ankle. LEFT LOWER EXTREMITY: Mild to moderate stenosis of the external iliac artery. The common femoral brenna ry is patent.a possible short segment dissection of the superficial femoral artery in image 422 serie s 3. Short segment high-grade stenosis of the superficial femoral artery on image 437. The popliteal artery is patent. Patent peroneal trunk with 3 vessel arterial flow noted level of the ankle. CT ABDOMEN/pelvis: Emphysema with bronchial wall thickening and bibasilar mucous plugging. Small righ t pleural effusion with dependent bibasilar atelectasis. No pneumatosis or pneumoperitoneum. Unremark able spleen, pancreas, gallbladder and adrenal glands. Unremarkable liver. Kidneys are within normal limits without hydronephrosis. Cyst of the superior pole left kidney again noted. Layering dependent subcentimeter stones within the dependent urinary bladder are again seen. No lymphadenopathy. Mild distal esophageal wall thickening. Enteric tube distal tip terminates within the mid gastric bod y. Small inguinal hernias are fat filled. A nonobstructed loop of ileum is again seen partially exten ding into right inguinal hernia. There is decreased small bowel distention. Air and fluid-filled dila lalit loops of small bowel measuring up to 3.8 cm are again seen within the midabdomen with transition point within the right midabdomen on image 189 series 3. There is swirling within the lower abdominal mesentery. No acute fracture. Right hip arthroplasty. Avascular necrosis of the left hip. L2 and L4 compression deformities are again noted along with unchanged retropulsion. Small fat filled umbilical hernia on image 196. IMPRESSION: 1. Enteric tube distal tip terminates in the stomach. There is persistent small bowel obstruction wit h probable internal hernia. The degree of small bowel distention has improved compared to the 01/13/20 study. 2. Moderate to extensive atherosclerosis with areas of high-grade stenosis noted within the iliac and superficial femoral arteries as above. 3. No pneumatosis or pneumoperitoneum. 4. Small right pleural effusion with right lower lobe mucus plugging. 5. Additional findings as above. ACT 112: Negative or not required by law. The above report was generated using voice recognition software. It may contain grammatical, syntax o r spelling errors. Electronically signed by: Brent Alvarez M.D. 01/15/2025 3:06 PM
[2025-01-16] MEDS: BUDESONIDE 0.5 MG/2 ML VIAL (PULMICORT) NEB SCH (20:22)
--- NOTE | 2025-01-17 00:26 | Communication Note ---
Date of Service: January 16, 2025 Late entry note Palliative Med Pt seen earlier 01/16/25: Remains conflicted re GOC and code status, feels he has been getting a lot of information - confusing and overwhelming him. He shares he has a strong relationship with Dr Goncalves, his information technology instructor and would like to hear from Dr Goncalves re CPR outcomes for a person in his situation. I asked Dr Goncalves to see Mr Castillo and appreciate the outcome of his conversation with pt: Dr Goncalves updated and evaluated/met with pt. Another [facility] discussion was held. Pt decided that while chances of successful outcomes without further debility are unlikely for him at this stage with terminal COPD, he wants "one shot" - he would like a trial of CPR, mech vent and cardiac support. If these interventions do not bring improvement, he does not want to be in a prolonged state of mechanical dependency. He does not want trach or PEG. he does not want vent SNF. he does not want wine merchant vent dependence. He feels if he is not improving after a few days on artificial life support then he wants that discontinued with transition to comfort. Code status to remain Full code, trial of ACLS, no proloned life support/artificial measure, no trach, no peg, no vent SNF etc. His last FEV1 was 18%, this was a few years ago. COPD is an incurable, and progressive chronic illness and likely FEV1 now is lower. FEV1 of 18% is terminal COPD stages and qualifies pt for hospice should he have further acute decline and desire transition to focus on QOL, be home with family and make the most of the time he may have remaining in a more interactive/awake/alert state. Some patients may wish to pursue CPR and other intensive treatments, even when the potential benefits are limited and the burdens are high. In these situations, it is important to respect patient preferences whenever possible. At the same time, clinicians are called to use their professional judgment to carefully weigh the potential for benefit against the risk of harm. Doing everything should be understood within the context of what is medically appropriate and potentially beneficial. When treatments are unlikely to offer meaningful improvement or relief, care decisions should be guided by the principle of doing what is in the patients best interestmaximizing comfort and well-being, while minimizing suffering. Quality of life considerations are central to this process. Healthcare providers are not obligated to offer interventions that are unlikely to help or that fall outside the goals of medicine, which include healing when possible and always striving to ease suffering and support dignity. CPR survival: Only about 10% of patients who have [id number] sudden cardiac arrest survive to hospital discharge, with many survivors having neurologic impairment. This rate is even lower among patients with serious coexisting conditions, ie chance of survival to hospital discharge for in-hospital CPR in older people is low to moderate (15%) and decreases with age, comorbidities, performance status and frailty: for pts > 70 yo, more than half of the patients who initially survived resuscitation in the hospital before hospital discharge. The pooled survival to discharge after in-hospital CPR was 18% for patients between 70 and 79 years old, 15% for patients between 80 and 89 years old and 11% for patients of 90 years and older. COPD is independently associated with significantly lower rates of survival to discharge. (Ena A, Kamilah PB, Cindy CA, Ruben J, Scout SorensonK. Impact of chronic obstructive pulmonary disease on survival and neurologic outcomes in adults with in-hospital cardiac arrest.PLoS One. 202;16(11):[id number]. Published 2020Apr 20. Jaylon MKY, Edwin LJ, Bismark F, et al. Trends in short- and long-term survival among [id number] cardiac arrest patients alive at hospital arrival. Circulation 2014;130:4716-4515. Nita C, Marianlea T, Colton R, et al. Performance of clinical risk scores to predict mortality and neurological outcome in cardiac arrest patients. Resuscitation 2019;136:21-29.) Palliative Medicine will sign off and remain available for re-engagement as needed. Patient's goals of care have been defined after multiple discussions. For now, I would encourage this topic to be asked and answered, as repeated conversations about it are creating anxiety and stress for pt. Thank you for allowing us to participate in the ongoing care of this patient. Please page with any additional concerns. Ton Bruno DNP Director, Palliative Medicine
[2025-01-17 06:12] LABS: Hematocrit (blood only) 36.3 % (42.0-52.0); Hemoglobin 12.0 g/dl (14.0-18.0); Mean Corpuscular Hemoglobin 32.3 pg (25.0-34.0); Mean Corpuscular Volume 97.8 fL (80.0-100.0); Platelet Count 367 K/uL (130-400); RDW Standard Deviation 48.1 fL (36.4-46.3); Red Blood Count 3.71 M/uL (4.70-6.10); White Blood Count 8.01 K/ul (4.8-10.8)
[2025-01-17 06:41] LABS: Anion Gap 7.0 (3-11); Blood Urea Nitrogen 8.0 mg/dl (6-23); Calcium 8.5 mg/dl (8.6-10.3); Carbon Dioxide 41.0 mmol/L (21-32); Chloride 98.0 mmol/L (98-107); Creatinine Clr Calc Pharmacy 96.8 ml/min; Glucose 116.0 mg/dl (70-99(Fasting)); Magnesium 2.1 mg/dl (1.7-2.4); Potassium 2.6 mmol/L (3.5-5.1); Sodium 146.0 mmol/L (136-145)
[2025-01-17] MEDS: ACETAMINOPHEN 1,000 MG/100 ML VIAL IV PRN (08:53)
[2025-01-17] MEDS: POTASSIUM CHLORIDE / WTR 10 MEQ/100 ML PLCT IV SCH ×2 (08:54→21:09)
--- NOTE | 2025-01-17 09:28 | Surgery Progress Note ---
Date of Service January 17, 2025 Assessment & Plan (1) SBO (small bowel obstruction): Plan: Small bowel follow-through images and results were personally viewed and interpreted by myself He still has some dilated bowel however the contrast did reach the colon so he is not completely obstructed Will follow-up his repeat KUB today to see where the colon has reached, he did have a bowel movement which is encouraging He would be very high risk for an operation and would like to try nonoperative management as long as this is improving Surgery will continue to follow Admission and Anticipated Discharge Date Admission Date: January 09, 2025 Subjective Patient seen and examined. Denies abdominal pain. Had a watery bowel movement overnight. Still passing some flatus. Afebrile. Review of Systems Constitutional: no fever and no chills Respiratory: no cough and no dyspnea Cardiovascular: no chest pain and no dyspnea on exertion Gastrointestinal: + constipation; no abdominal pain, no na usea, no vomiting and no diarrhea/loose stools Genitourinary: no dysuria or no nocturia Integumentary: no acne, no skin ulcer and no erythema Psychiatric: no behavioral changes and no depression Physical Exam Constitutional: WD/WN, vitals as above Eyes: PERRL, conjunctivae normal, anicteric sclerae ENMT: external ear and nose normal, oropharynx normal Neck: trachea midline, no thyromegaly Respiratory: normal respiratory effort, lungs clear to auscultation Cardiovascular: RRR, no murmur, no edema Gastrointestinal (Abdomen): Inspection/Auscultation: abdomen normal to inspection and + abdomen distended Percussion/Palpation: abdomen soft; abdomen nontender and no guarding Musculoskeletal: no cyanosis or clubbing, extremities motor strength 5/5 Skin: no rashes, warm and dry Psychiatric: A+Ox3, euthymic affect Results & Data Vital Signs (Past 12 Hours) Vital Signs Temp Pulse Pulse Resp BP BP Pulse Ox 01/17/25 08:07 36.9 C 87 118/77 93 01/17/25 08:06 87 116/77 01/17/25 06:54 92 H 18 94 01/17/25 06:47 97 H 01/17/25 03:24 36.8 C 97 H 18 119/77 92 01/17/25 03:05 88 18 92 01/17/25 03:04 100 H 01/17/25 00:57 100 H 122/75 01/16/25 23:50 100 H 01/16/25 22:47 37.0 C 102 H 18 122/75 94 01/16/25 21:58 O2 Del Method O2 Flow Rate 01/17/25 08:07 Nasal Cannula 0.5 01/17/25 08:06 01/17/25 06:54 Nasal Cannula 0.5 01/17/25 06:47 01/17/25 03:24 Nasal Cannula 1 01/17/25 03:05 Nasal Cannula 1 01/17/25 03:04 01/17/25 00:57 01/16/25 23:50 01/16/25 22:47 Nasal Cannula 1 01/16/25 21:58 Nasal Cannula 0.5 PG Care Time/CCT Total # of Minutes Spent Total Time Spent with Patient: Total time spent is greater than 50% in coordination of care (as documented) at patient's floor/unit and/or counseling patient: Coding Level of Care Code 94944 SUB INP/OBS CARE 06/16MIN Diagnoses SBO (small bowel obstruction) K56.609
--- NOTE | 2025-01-17 10:16 | Communication Note ---
Date of Service: January 17, 2025 Mr Jonathan's CTA abd/pelvis with runoff reviewed with Dr Worley. Pt with severe aortoiliac disease and PAD that would require extensive open revascular ization. Pt is high risk for any open procedures d/t multiple comorbidities. Would recommend continue conservative treatment of feet by podiatry. Please call if needed.
[2025-01-17] MEDS: PANTOprazole 40 MG/10 ML SYR IV SCH (10:40)
--- NOTE | 2025-01-17 12:41 | XRay Report ---
KUB CLINICAL HISTORY: eval SBO COMPARISON STUDY: CT of the abdomen and pelvis January 12, 2025. KUB January 15, 2025. Small bowel fol low-through January 16, 2025. FINDINGS: Right hip arthroplasty is incidentally noted. Nasogastric tube is coiled within the stomach . Oral contrast from small bowel follow-through is now within the colon and rectum. There is minimal residual oral contrast within the distal small bowel. Multiple loops of moderately dilated small jareth l measure up to 4.2 cm in caliber. Small bowel dilatation has mildly decreased. IMPRESSION: 1. Moderate small bowel dilatation, improved since study of January 15, 2025. The findings suggest a p ersistent but improving small bowel obstruction. 2. Oral contrast from small bowel follow-through now within the colon and rectum. ACT 112: Negative or not required by law. Electronically signed by: Randolph Arredondo M.D. 01/17/2025 12:40 PM
--- NOTE | 2025-01-17 14:17 | Hospitalist Progress Note ---
Date of Service January 17, 2025 Assessment & Plan (1) Sepsis: (2) SBO (small bowel obstruction): (3) Hypokalemia: (4) Cellulitis: (5) Esophagitis: (6) Paraplegia: Plan 64yo male with endstage COPD, severe PAD, recent admission for SSTI of chronic foot/leg wounds complicated by Morganella bacteremia. Admitted with severe bilateral LE cellulitis and new large bullae of bilateral LE - bullae now resolved. #Acute small bowel obstruction - -developed on 01/12 -s/p NG tube placement -passing flatus and had a few stools overnight -upper GI with small bowel follow-through - resolving SBO, some contrast reached the colon -KUB today - resolving SBO -appreciate gen surg assistance -defer NG tube management and initiation of a diet to gen surg -replace low K again today #Sepsis due to bilateral lower extremity cellulitis, right greater than left -sepsis resolved -cellulitis resolved b/l -b/l james & foot wounds - continue local wound care -wound culture - pseudomonas, providencia, and alcaligenes -s/p 7 days of IV cefepime - now off abx -podiatry consult for b/l foot wounds - Dr Bass #Peripheral arterial disease - -Arterial duplex studies showed greater than 75% stenosis of the left proximal femoral artery, disease also present on the right -CTA aorta with run-off - also confirms severe b/l PAD -Consulted vascular surgery - seen 01/[address] Worley -very poor candidate for intervention given his numerous other acute/chronic issues - conservative Rx recommended by vascular -ideally should be on aspirin and statin once able to take PO #Acute exacerbation of COPD - -appreciate Dr Goncalves's consultation -cont formoterol BID -cont budesonide BID -incentive stephanie and flutter #Atrial fibrillation - -Continue metoprolol IV -Xarelto on hold due to NPO status/NG tube #History of alcohol abuse - -no signs of etoh withdrawal #nicotine dependence - -nicotine patch #hyponatremia - resolved -lowest Na level was 130 #hypokalemia - -ongoing -2nd to GI losses, no PO intake nutritionally, etc. -gave IV KCL x 40meq; K still low this afternoon; gave additional KCL IV -mag level wnl -repeat BMP with mag in am tomorrow -change IV fluids to D5 1/ NS with 40meq KCL #Functional paraplegia - -has not ambulated in several years since his right hip fracture with repair in 2019 -wheelchair dependent at baseline DVT proph - start lovenox 40mg daily appreciate assistance by palliative care & pulmonary to refine goals of care, code status, etc. at this time patient wishes to remain full code Admission and Anticipated Discharge Date Admission Date: January 09, 2025 Subjective patient lying in bed comfortably denies any new complaints breathing is comfortable no abd pain has passed a few stools passing flatus we discussed podiatry consult for his feet tele overnight wnl NG tube output continues Review of Systems Review of Systems: gen - no fevers cv - no chest pain pulm - no dyspnea GI - no abd pain Physical Exam Physical Exam: gen - chronically ill-appearing but NAD, looks similar to yesterday, pleasant neck - no JVD mouth - MMM, no thrush, no lesions heart - RRR, s1 s2, heart tones distant, no obvious murmur lungs - clear anteriorly; mild wheezes b/l posteriorly; airation fair; no rales abd - distension much improved, BS+, NT, no HSM ext - cap refill b/l feet about 3 sec; pulses b/l feet barely palpable; no edema of legs skin - no cellulitis either leg psych - a/o x 3 Results & Data Results & Data Vital Signs (Past 12 Hours) Vital Signs Temp Pulse Pulse Resp BP BP Pulse Ox 01/17/25 11:34 92 H 96/66 L 01/17/25 11:32 36.7 C 92 H 96/66 L 96 01/17/25 10:47 99 H 19 96 01/17/25 10:20 82 01/17/25 08:07 36.9 C 87 118/77 93 01/17/25 08:06 87 116/77 01/17/25 06:54 92 H 18 94 01/17/25 06:47 97 H 01/17/25 03:24 36.8 C 97 H 18 119/77 92 01/17/25 03:05 88 18 92 01/17/25 03:04 100 H O2 Del Method O2 Flow Rate 01/17/25 11:34 01/17/25 11:32 Nasal Cannula 0.5 01/17/25 10:47 Nasal Cannula 1 01/17/25 10:20 01/17/25 08:07 Nasal Cannula 0.5 01/17/25 08:06 01/17/25 06:54 Nasal Cannula 0.5 01/17/25 06:47 01/17/25 03:24 Nasal Cannula 1 01/17/25 03:05 Nasal Cannula 1 01/17/25 03:04 Laboratory Results Laboratory Results - last 24 hr 01/17/25 01/17/25 05:30 17:38 Sodium 146 H 144 Potassium 2.6 L 2.9 L Chloride 98 101 Carbon Dioxide 41 H* 37 H Anion Gap 7 6 BUN 8 8 Creatinine 0.73 0.74 Est Cr Clr Drug Dosing 96.8 95.5 eGFR 102.23 101.81 BUN/Creatinine Ratio 11.0 10.8 Glucose 116 H 81 Calcium 8.5 L 8.4 L Magnesium 2.1 Diagnostic Findings KUB X-Ray 01/17/25 07:00 KUB CLINICAL HISTORY: eval SBO COMPARISON STUDY: CT of the abdomen and pelvis January 12, 2025. KUB January 15, 2025. Small bowel follow-through January 16, 2025. FINDINGS: Right hip arthroplasty is incidentally noted. Nasogastric tube is coiled within the stomach. Oral contrast from small bowel follow-through is now within the colon and rectum. There is minimal residual oral contrast within the distal small bowel. Multiple loops of moderately dilated small bowel measure up to 4.2 cm in caliber. Small bowel dilatation has mildly decreased. IMPRESSION: 1. Moderate small bowel dilatation, improved since study of January 15, 2025. The findings suggest a persistent but improving small bowel obstruction. 2. Oral contrast from small bowel follow-through now within the colon and rectum. ACT 112: Negative or not required by law. Electronically signed by: Randolph Arredondo M.D. 01/17/2025 12:40 PM PG Care Time/CCT Total # of Minutes Spent Total Time Spent with Patient: Total time spent is greater than 50% in coordination of care (as documented) at patient's floor/unit and/or counseling patient: Coding Level of Care Code 22019 SUB INP/OBS CARE 3/50MIN Diagnoses Sepsis A41.9 SBO (small bowel obstruction) K56.609 Hypokalemia E87.6 Cellulitis L03.90 Esophagitis K20.90 Paraplegia G82.20
[2025-01-17] MEDS: POTASSIUM CHLORIDE 40 MEQ in D5W AND 0.2% NaCL 1,000 ML IV SCH (16:47)
[2025-01-17 18:29] LABS: Anion Gap 6.0 (3-11); Blood Urea Nitrogen 8.0 mg/dl (6-23); Calcium 8.4 mg/dl (8.6-10.3); Carbon Dioxide 37.0 mmol/L (21-32); Chloride 101.0 mmol/L (98-107); Creatinine Clr Calc Pharmacy 95.5 ml/min; Glucose 81.0 mg/dl (70-99(Fasting)); Potassium 2.9 mmol/L (3.5-5.1); Sodium 144.0 mmol/L (136-145)
[2025-01-18] MEDS: ENOXAPARIN INJ 40 MG/0.4 ML SYR SQ SCH (08:45)
--- NOTE | 2025-01-18 09:57 | Surgery Progress Note ---
Date of Service January 18, 2025 Assessment & Plan (1) SBO (small bowel obstruction): Plan: He is slowly improving and the contrast did reach the colon on a small bowel follow-through He is having some bowel movements but still has a fair amount of NG tube output Will attempt a clamp trial today with possible removal of his NG tube later Again he would be very high risk from a pulmonary standpoint if he were to undergo exploration and we will try to avoid this at all costs Surgery will follow Admission and Anticipated Discharge Date Admission Date: January 09, 2025 Subjective Patient seen and examined. Still denies abdominal pain. Is having some watery bowel movements. Passing some flatus. Afebrile. Review of Systems Constitutional: no fever and no chills Respiratory: no cough and no dyspnea Cardiovascular: no chest pain and no dyspnea on exertion Gastrointestinal: + constipation; no abdominal pain, no na usea, no vomiting and no diarrhea/loose stools Genitourinary: no dysuria or no nocturia Integumentary: no acne, no skin ulcer and no erythema Psychiatric: no behavioral changes and no depression Physical Exam Constitutional: WD/WN, vitals as above Eyes: PERRL, conjunctivae normal, anicteric sclerae ENMT: external ear and nose normal, oropharynx normal Neck: trachea midline, no thyromegaly Respiratory: normal respiratory effort, lungs clear to auscultation Cardiovascular: RRR, no murmur, no edema Gastrointestinal (Abdomen): Inspection/Auscultation: abdomen normal to inspection and + abdomen distended Percussion/Palpation: abdomen soft; abdom en nontender and no guarding Musculoskeletal: no cyanosis or clubbing, extremities motor strength 5/5 Skin: no rashes, warm and dry Psychiatric: A+Ox3, euthymic affect Results & Data Vital Signs (Past 12 Hours) Vital Signs Temp Pulse Pulse Resp BP BP Pulse Ox 01/18/25 07:58 36.7 C 85 20 108/66 95 01/18/25 07:05 85 108/66 01/18/25 06:50 92 H 110/73 01/18/25 05:38 96 H 18 90 01/18/25 03:59 36.8 C 92 H 18 110/73 92 01/18/25 02:30 95 H 01/18/25 00:23 96 H 01/18/25 00:00 82 18 98 01/17/25 23:56 98 H 114/72 01/17/25 23:25 36.9 C 98 H 18 114/72 91 O2 Del Method 01/18/25 07:58 Room Air 01/18/25 07:05 01/18/25 06:50 01/18/25 05:38 Room Air 01/18/25 03:59 Room Air 01/18/25 02:30 01/18/25 00:23 01/18/25 00:00 Room Air 01/17/25 23:56 01/17/25 23:25 Room Air PG Care Time/CCT Total # of Minutes Spent Total Time Spent with Patient: Total time spent is greater than 50% in coordination of care (as documented) at patient's floor/unit and/or counseling patient: Coding Level of Care Code 42935 SUB INP/OBS CARE 06/16MIN Diagnoses SBO (small bowel obstruction) K56.609
[2025-01-18 11:22] LABS: Anion Gap 4.0 (3-11); Blood Urea Nitrogen 7.0 mg/dl (6-23); Calcium 8.3 mg/dl (8.6-10.3); Carbon Dioxide 30.0 mmol/L (21-32); Chloride 103.0 mmol/L (98-107); Creatinine Clr Calc Pharmacy 96.8 ml/min; Glucose 91.0 mg/dl (70-99(Fasting)); Magnesium 1.9 mg/dl (1.7-2.4); Potassium 3.5 mmol/L (3.5-5.1); Sodium 137.0 mmol/L (136-145)
[2025-01-18] MEDS: ALBUT/IPRATROP 3MG/0.5MG NEB 3 ML VIAL NEB PRN (13:41)
--- NOTE | 2025-01-18 16:53 | Podiatry Consultation ---
Date of Consultation January 18, 2025 Assessment & Plan (1) PAD (peripheral artery disease): (2) Chronic ulcer of right foot with fat layer exposed: (3) Acute osteomyelitis of metatarsal bone of right foot: Plan Bilateral foot and leg wounds: Area of primary concern clinically is ulceration at the base of the fifth metatarsal with pressure ulcer extending to underlying tendon. Plain film radiographs reviewed showing small erosive changes are suggested in the base of the metatarsal abutting the soft tissue wound/ulceration. May be prudent to reevaluate the right foot with repeat MRI to further evaluate for signs of underlying osteomyelitis to the fifth metatarsal. If indicated would recommend IV antibiotic therapy for treatment of osteomyelitis over surgical debridement and bone biopsy of the area given patient's significant peripheral vascular disease and the fact that there is no clinically exposed bone for direct biopsy. Should wound deteriorate or fail to show improvement with antibiotic therapy, wound care and offloading I believe patient would be a better served with a more proximal amputation versus more limited amputation/debridement of the foot. - Continue once daily dressing change to the right lateral foot wound and left hallux wound with Aquacel Ag and a dry sterile dressing of gauze and Mervin and tape. Okay to leave right hallux exposed to air. - Order: Waffle boots bilateral foot to protect feet while in bed and while in a dependent position. Boots to be removed for transfer. Continue postop shoes bilateral for short distance and transfer. - Patient would benefit from Rooke boots with fragile epithelium to the bilateral lower extremity below the knee and pressure wound to the lateral aspect of the fifth metatarsal base right foot. Working with [facility] to acquire bilateral Rooke boots. - Order placed for portable x-ray of the bilateral foot. - Order: Culture right fifth metatarsal base wound - No indication for OR based debridement of the bilateral lower extremity wounds at this time. Thank for consulting podiatry to aid in the care of this patient. History of Present Illness Reason for Consultation: Bilateral lower extremity ulcerations Attending Physician: Ruiz Gallardo MD History of Present Illness 64-year-old male with past medical history significant for peripheral arterial disease, gram-negative bacteremia chronic ulceration of the right foot, tobacco use, alcohol abuse, COPD, acute on chronic renal failure, CHF, chronic venous insufficiency, cardiomyopathy, atrial fibrillation is admitted to [facility] 01/09/2025 with sepsis secondary to wound to the bilateral foot and bilateral lower extremity cellulitis. Recently admitted to [facility] with similar issue and underwent MRI of the right foot on 12/17/2024 with no signs of abscess or evidence of osteomyelitis of the right foot. In the emergency department he was initiated on IV vancomycin and cefepime in the emergency department. Lower extremity cellulitis resolved relatively rapidly. CTA on 01/15/2025 showing moderate to extensive atherosclerosis With areas of high-grade stenosis noted within the iliac and superficial femoral arteries. Arterial duplex ultrasound showing greater than 75% stenosis of the left proximal femoral artery as well as right lower extremity Diffuse monophasic post stenotic waveforms beginning proximally. He is evaluated by vascular surgery on 01/15 is noted to be a poor candidate for intervention given numerous other acute/chronic issues. Allergies Allergy/AdvReac Type Severity Reaction Status Date / Time erythromycin base Allergy Intermediate hives or Verified 12/14/24 17:58 diarrhea Penicillins Allergy Intermediate hives or Verified 12/14/24 17:58 diarrhea NITRATES IN PROCESSED MEATS Allergy Severe Difficulty Uncoded 12/14/24 17:58 Breathing Home Medications Medication Instructions Recorded Confirmed Type cetirizine 10 mg tablet 10 mg PO DAILY PRN Allergy Symptoms 12/29/18 01/09/25 History multivitamin (Daily-Deanne tablet) 1 tab PO DAILY 07/20/20 01/09/25 History ibuprofen 200 mg capsule 400 mg PO Q6H PRN Pain 06/24/22 01/09/25 History magnesium 250 mg tablet 250 mg PO DAILY 09/16/22 01/09/25 History nebulizers #1 ea 12/23/22 01/09/25 Rx guaifenesin 600 mg tablet, 600 mg PO BID PRN congestion #60 01/28/23 01/09/25 Rx extended release 12 hr (Mucinex) tabs albuterol sulfate 1.25 mg/3 mL 1.25 mg (3 mL) inhalation QID PRN 03/31/23 01/09/25 Rx solution for nebulization shortness of breath or wheezing #360 mL potassium chloride 10 mEq 10 meq PO DAILY #90 tabs 06/08/24 01/09/25 Rx tablet,extended release (Klor-Con) rivaroxaban 10 mg tablet (Xarelto) 10 mg PO QPM #90 tabs 06/27/24 01/09/25 Rx metoprolol succinate 50 mg 50 mg PO DAILY #90 tabs 10/19/24 01/09/25 Rx tablet,extended release 24 hr bupropion HCl 150 mg tablet,12 hr 150 mg PO BID #60 ea 11/08/24 01/09/25 Rx sustained-release (Wellbutrin SR) albuterol sulfate 90 mcg/actuation 2 puff inhalation Q4H PRN 11/26/24 01/09/25 Rx aerosol inhaler (Ventolin HFA) Shortness Of Breath Or Wheezing #18 grams furosemide 20 mg tablet (Lasix) 20 mg PO BID edema #120 tabs 12/28/24 01/09/25 Rx oxycodone-acetaminophen 10 mg-325 1 tab PO Q6H PRN pain #60 tabs 01/09/25 01/09/25 Rx mg tablet (Percocet) budesonide 160 mcg-glycopyr 9 2 inh inhalation BID #10.7 grams 01/16/25 Rx mcg-formot 4.8 mcg/actuation HFA inhaler (Breztri Aerosphere) Patient History Medical History Back pain HX L2 FRACTURE>HEALED Leg cramps AT NIGHT Congestive heart failure Atrial fibrillation FOLLOWED BY [facility] COPD (chronic obstructive pulmonary disease) Surgical History History of total hip arthroplasty RT H/O abdominal surgery X 2 ? EXPLORATORY>[facility], ABDOMINAL BENIGN MASS REMOVED A CHILD History of tonsillectomy History of tooth extraction Hx of appendectomy Family History Father Hairy cell leukemia Myocardial infarction Colorectal cancer Mother Multiple myeloma Other No family history of adverse response to anesthesia Denies family history of Ovarian cancer Prostate cancer Breast cancer Social History Smoking Status: Current every day smoker Tobacco Type: Cigarettes Age Started Using Tobacco: 16; packs per day: 1; Cigarettes Per Day: 30; Second Hand Exposure: Yes; Do You Dip or Chew Tobacco: No; Hx Alcohol Use: Yes Alcohol type: beer Alcohol Intake Frequency: 4 or More x per/Week Alcohol Intake Frequency Comment: 36-48 ounces of beer a day Hx Substance Use: No Preferred Language: Maori Communication Ability: Effective Rehab Technician Required: No Beliefs That Will Affect Care: None marital status: marital status details: no children Current Living Situation: Spouse Current Living Situation Comment: lives in [place] by himself current occupational status: disabled other: 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 Reports intermittent shortness of breath. Reports pain to the lateral aspect of the right foot at the area of ulceration. Physical Exam Physical Exam: Focused lower extremity exam: Bilateral lower extremities with significant venous stasis changes below the knee. Multiple superficial excoriations and areas of weeping as well as superficial ulceration to the right anterior lateral leg without signs of local soft tissue infection. Serosanguineous drainage to dressing with active serous drainage. Pedal pulses are nonpalpable. Ischemic appearance of bilateral hallux with apparent pressure ulceration to the medial aspect of the left hallux with mixed fibrotic granular wound base and surrounding maceration to the soft tissues. Stable hemorrhagic blister to the distal medial aspect of the right hallux with no open wound at this time and no signs of local soft tissue infection. Stage IV pressure ulceration to the lateral aspect of the fifth metatarsal base of the right foot with exposed tendon and granular tissue to the wound bed. Overlying slough was mechanically removed and patient notes pain to the area of ulceration. Mild periwound erythema and edema. No active drainage. No frankly exposed bone to the wound bed. No lymphangitis or streaking. Results & Data Vital Signs (Past 12 Hours) Vital Signs Temp Pulse Pulse Resp BP BP Pulse Ox 01/18/25 15:05 36.7 C 87 16 124/83 96 01/18/25 13:42 89 19 96 01/18/25 12:55 89 137/82 01/18/25 12:40 86 128/79 01/18/25 11:01 36.8 C 81 16 128/79 96 01/18/25 10:48 01/18/25 10:47 102 H 01/18/25 07:58 36.7 C 85 20 108/66 95 01/18/25 07:05 85 108/66 01/18/25 06:50 92 H 110/73 01/18/25 05:38 96 H 18 90 O2 Del Method O2 Flow Rate 01/18/25 15:05 Room Air 01/18/25 13:42 Nasal Cannula 1 01/18/25 12:55 01/18/25 12:40 01/18/25 11:01 Room Air 01/18/25 10:48 Room Air 01/18/25 10:47 01/18/25 07:58 Room Air 01/18/25 07:05 01/18/25 06:50 01/18/25 05:38 Room Air Diagnostic Findings MRI 12/17/2024 IMPRESSION: 1. Dorsal right midfoot wound. No abscess. Adjacent subcutaneous edema consistent with cellulitis. 2. No evidence for acute osteomyelitis within the right midfoot or forefoot. X-ray 3 views right foot 01/18/2025 FINDINGS: No displaced acute osseous process is identified. There is a soft tissue ulceration abutting the base of the fifth metatarsal. Small erosive changes are suggested in the base of the metatarsal. IMPRESSION: Small erosive changes are suggested in the base of the metatarsal abutting the soft tissue wound/ulceration. Mild osteomyelitis may be present Electronically signed by Julius Henriquez 01-18-2025 5:53 PM X-rays 3 views left foot 01/18/2025: Impression: 1. Old healed fractures of the necks of the fourth and fifth metatarsal 2. Osteopenia 3. Mild great toe osteoarthritis 4. Calcaneal spur PG Care Time/CCT Total # of Minutes Spent Total Time Spent with Patient: Total time spent is greater than 50% in coordination of care (as documented) at patient's floor/unit and/or counseling patient: [place] [address] INT INP/OBS CARE 3/75MIN Patient Type New History Comprehensive Exam Comprehensive Medical Decision Making High Complexity Diagnoses PAD (peripheral artery disease) I73.9 Chronic ulcer of right foot with fat layer exposed L97.512 Acute osteomyelitis of metatarsal bone of right foot M86.171
--- NOTE | 2025-01-18 17:38 | XRay Report ---
Clinical History: Ulceration 3 views of the left foot are submitted for review. Findings: There are suspected old healed fractures of the necks of the fourth and fifth metatarsals. No clear acute fracture is seen No subluxation or dislocation is seen. There is osteopenia. There is mild osteoarthritis of the great toe metatarsophalangeal joint. There is a plantar calcaneal spur. No other osseous abnormality is identified. There are no radiopaque foreign bodies. Impression: 1. Old healed fractures of the necks of the fourth and fifth metatarsal 2. Osteopenia 3. Mild great toe osteoarthritis 4. Calcaneal spur Electronically signed by Hector Brooks 01-18-2025 5:38 PM
--- NOTE | 2025-01-18 17:54 | XRay Report ---
INDICATION: Pain TECHNIQUE: 3 views of the right foot were obtained. COMPARISON: None FINDINGS: No displaced acute osseous process is identified. There is a soft tissue ulceration abutting the base of the fifth metatarsal. Small erosive changes are suggested in the base of the metatarsal. IMPRESSION: Small erosive changes are suggested in the base of the metatarsal abutting the soft tissue wound/ulceration. Mild osteomyelitis may be present Electronically signed by Julius Henriquez 01-18-2025 5:53 PM
--- NOTE | 2025-01-18 19:07 | Hospitalist Progress Note ---
Date of Service January 18, 2025 Assessment & Plan (1) Sepsis: (2) SBO (small bowel obstruction): (3) Hypokalemia: (4) Cellulitis: (5) Esophagitis: (6) Paraplegia: Plan 64yo male with endstage COPD, severe PAD, recent admission for SSTI of chronic foot/leg wounds complicated by Morganella bacteremia. Admitted with severe bilateral LE cellulitis and new large bullae of bilateral LE - bullae now resolved. Course complicated by development of SBO on 01/12/25 requiring NG Tube d ecompression. #Acute small bowel obstruction - resolving - -developed on 01/12, s/p NG tube placement -recent upper GI with small bowel follow-through - resolving SBO, some contrast reached the colon -appreciate gen surg assistance -NG tube clamp trial today - passed; thus NG removed, and clear liquid diet started -tolerated such -cont IV fluids -defer diet advancement to gen surg #Sepsis due to bilateral lower extremity cellulitis, right greater than left - sepsis resolved -cellulitis resolved b/l -however, has b/l james & foot wounds -Dr Bass consulted from podiatry for these wounds -most concerned about right foot wound over the 5th metatarsal -x-rays taken, ? osteomyelitis of 5th metatarsal -cont local wound care -wound culture - pseudomonas, providencia, and alcaligenes -s/p 7 days of IV cefepime earlier this admit -will resume cefepime in light of concern for possible right foot OM -recheck CRP am -appreciate podiatry consult by Dr Bass #Peripheral arterial disease - -Arterial duplex studies showed greater than 75% stenosis of the left proximal femoral artery, disease also present on the right -CTA aorta with run-off - also confirms severe b/l PAD -Consulted vascular surgery - seen 01/[address] Worley -very poor candidate for intervention given his numerous other acute/chronic issues - conservative Rx recommended by vascular -ideally should be on aspirin and statin once able to take PO reliably #Acute exacerbation of COPD - resolved - -appreciate Dr Goncalves's consultation -cont formoterol BID -cont budesonide BID -incentive stephanie and flutter #Atrial fibrillation - -Continue metoprolol IV but likely back to PO meto tomorrow -hold Xarelto in the event he needs anything surgical for his foot wounds #History of alcohol abuse - -no signs of etoh withdrawal #nicotine dependence - -nicotine patch #hyponatremia - resolved -lowest Na level was 130 #hypokalemia - -improved today with normal K level finally -2nd to GI losses, no PO intake nutritionally, etc. -mag level wnl -repeat BMP tomorrow -change IV fluids back to NS with 40meq KCL #Functional paraplegia - -has not ambulated in several years since his right hip fracture with repair in 2019 -wheelchair dependent at baseline #diarrhea - -if this persists then check c diff -add lactinex -loose stools are common after resolution of SBO as well DVT proph - lovenox 40mg daily ultimately back to [place] appreciate assistance by palliative care & pulmonary to refine goals of care, code status, etc. left message for pt's on answering machine this pm, 01/18 Admission and Anticipated Discharge Date Admission Date: January 09, 2025 Subjective NG clamp trial - passed such earlier today without N/V NG tube then removed had clears for dinner and tolerated such has had at least 4 small liquid stools since early this am denies abd pain or bloating denies dyspnea tele - NSR Review of Systems Review of Systems: gen - no fevers or chills cv - no cp, no orthopnea pulm - no dyspnea at rest GI - no blood per rectum Physical Exam Physical Exam: gen - chronically ill-appearing but NAD, looks good today neck - no JVD mouth - MMM, no thrush nose - NG tube has been removed heart - RRR, s1 s2, heart tones distant, no obvious murmur lungs - clear anteriorly; airation fair; no rales abd - distension improved, BS+, NT, no HSM ext - cap refill b/l feet about 3 sec; pulses b/l feet difficult to palpate; no edema of legs skin - no cellulitis either leg; dressings intact b/l feet psych - a/o x 3 Results & Data Results & Data Vital Signs (Past 12 Hours) Vital Signs Temp Pulse Pulse Resp BP BP Pulse Ox 01/18/25 18:27 94 H 129/84 01/18/25 18:06 92 H 132/85 01/18/25 15:05 36.7 C 87 16 124/83 96 01/18/25 13:42 89 19 96 01/18/25 12:55 89 137/82 01/18/25 12:40 86 128/79 01/18/25 11:01 36.8 C 81 16 128/79 96 01/18/25 10:48 01/18/25 10:47 102 H 01/18/25 07:58 36.7 C 85 20 108/66 95 O2 Del Method O2 Flow Rate 01/18/25 18:27 01/18/25 18:06 01/18/25 15:05 Room Air 01/18/25 13:42 Nasal Cannula 1 01/18/25 12:55 01/18/25 12:40 01/18/25 11:01 Room Air 01/18/25 10:48 Room Air 01/18/25 10:47 01/18/25 07:58 Room Air Laboratory Results Laboratory Results - last 24 hr 01/18/25 10:44 Sodium 137 Potassium 3.5 D Chloride 103 Carbon Dioxide 30 Anion Gap 4 BUN 7 Creatinine 0.73 Est Cr Clr Drug Dosing 96.8 eGFR 102.23 BUN/Creatinine Ratio 9.6 L Glucose 91 Calcium 8.3 L Magnesium 1.9 Diagnostic Findings Foot X-Ray 01/18/25 16:53 Clinical History: Ulceration 3 views of the left foot are submitted for review. Findings: There are suspected old healed fractures of the necks of the fourth and fifth metatarsals. No clear acute fracture is seen No subluxation or dislocation is seen. There is osteopenia. There is mild osteoarthritis of the great toe metatarsophalangeal joint. There is a plantar calcaneal spur. No other osseous abnormality is identified. There are no radiopaque foreign bodies. Impression: 1. Old healed fractures of the necks of the fourth and fifth metatarsal 2. Osteopenia 3. Mild great toe osteoarthritis 4. Calcaneal spur Electronically signed by Hector Brooks 01-18-2025 5:38 PM Foot X-Ray 01/18/25 16:53 INDICATION: Pain TECHNIQUE: 3 views of the right foot were obtained. COMPARISON: None FINDINGS: No displaced acute osseous process is identified. There is a soft tissue ulceration abutting the base of the fifth metatarsal. Small erosive changes are suggested in the base of the metatarsal. IMPRESSION: Small erosive changes are suggested in the base of the metatarsal abutting the soft tissue wound/ulceration. Mild osteomyelitis may be present Electronically signed by Julius Henriquez 01-18-2025 5:53 PM PG Care Time/CCT Total # of Minutes Spent Total Time Spent with Patient: Total time spent is greater than 50% in coordination of care (as documented) at patient's floor/unit and/or counseling patient: Coding Level of Care Code 87056 SUB INP/OBS CARE 3/50MIN Diagnoses Sepsis A41.9 SBO (small bowel obstruction) K56.609 Hypokalemia E87.6 Cellulitis L03.90 Esophagitis K20.90 Paraplegia G82.20
[2025-01-18] MEDS: CEFEPIME 2000MG 2,000 MG/20 ML SYR IV SCH (20:36)
[2025-01-18] MEDS: POTASSIUM CHLORIDE 40 MEQ in SODIUM CHLORIDE 0.9% 1,000 ML IV SCH (20:37)
[2025-01-19 06:46] LABS: Hematocrit (blood only) 35.5 % (42.0-52.0); Hemoglobin 11.9 g/dl (14.0-18.0); Mean Corpuscular Hemoglobin 31.9 pg (25.0-34.0); Mean Corpuscular Volume 95.2 fL (80.0-100.0); Platelet Count 406 K/uL (130-400); RDW Standard Deviation 46.0 fL (36.4-46.3); Red Blood Count 3.73 M/uL (4.70-6.10); White Blood Count 8.14 K/ul (4.8-10.8)
[2025-01-19 07:16] LABS: Anion Gap 5.0 (3-11); Blood Urea Nitrogen 7.0 mg/dl (6-23); Calcium 8.2 mg/dl (8.6-10.3); Carbon Dioxide 22.0 mmol/L (21-32); Chloride 107.0 mmol/L (98-107); Creatinine Clr Calc Pharmacy 115.9 ml/min; Glucose 67.0 mg/dl (70-99(Fasting)); Potassium 3.8 mmol/L (3.5-5.1); Sodium 134.0 mmol/L (136-145)
[2025-01-19 08:03] LABS: Immature Granulocytes # (auto) 0.59 K/uL (0.01-0.20); Immature Granulocytes % (auto) 7.2 %
[2025-01-19] MEDS: ADVANCED PROBIOTIC 625 MG CAPSULE PO SCH (08:12)
[2025-01-19] MEDS: ACETAMINOPHEN 500 MG TAB PO PRN (08:15)
--- NOTE | 2025-01-19 09:54 | Surgery Progress Note ---
Date of Service January 19, 2025 Assessment & Plan (1) SBO (small bowel obstruction): Plan: passing flatus and having bowel movements. Advance diet as tolerated. Will continue to follow peripherally. Admission and Anticipated Discharge Date Admission Date: January 09, 2025 Subjective doing well. Passing flatus. Had bowel movement. Tolerating clears. No nausea/vomiting. Physical Exam Physical Exam: NAD, A&O x 3 NCAT, no scleral icterus Abdomen: Soft, nontender, nondistended Results & Data Vital Signs (Past 12 Hours) Vital Signs Temp Pulse Pulse Resp BP BP Pulse Ox 01/19/25 07:42 01/19/25 07:41 74 01/19/25 07:38 36.5 C 90 19 135/74 97 01/19/25 07:06 110 H 18 97 01/19/25 02:33 36.6 C 92 H 20 115/68 93 01/19/25 01:03 100 H 17 93 01/19/25 00:13 103 H 01/18/25 23:58 104 H 133/80 01/18/25 22:35 96 H 01/18/25 22:09 36.9 C 100 H 18 126/86 98 O2 Del Method 01/19/25 07:42 Room Air 01/19/25 07:41 01/19/25 07:38 Room Air 01/19/25 07:06 Room Air 01/19/25 02:33 Room Air 01/19/25 01:03 Room Air 01/19/25 00:13 01/18/25 23:58 01/18/25 22:35 01/18/25 22:09 Room Air Laboratory Results 01/19/25 01/18/25 Range/Units 05:43 10:44 WBC 8.14 (4.8-10.8) K/ul RBC 3.73 L (4.70-6.10) M/uL Hgb 11.9 L (14.0-18.0) g/dl Hct 35.5 L (42.0-52.0) % MCV 95.2 (80.0-100.0) fL MCH 31.9 (25.0-34.0) pg MCHC 33.5 (32.0-36.0) g/dL RDW Std Deviation 46.0 (36.4-46.3) fL RDW Coeff of Jm 13.2 (11.5-14.5) % Plt Count 406 H (130-400) K/uL MPV 9.4 (9.4-12.4) fL Immature Gran % (Auto) 7.2 % Neut % (Auto) 62.2 % Lymph % (Auto) 11.7 % Iron % (Auto) 12.9 % Eos % (Auto) 4.9 % Baso % (Auto) 1.1 % Neut # (Auto) 5.06 (1.40-6.50) K/uL Lymph # (Auto) 0.95 L (1.20-3.40) K/uL Iron # (Auto) 1.05 H (0.11-0.59) K/uL Eos # (Auto) 0.40 (0.00-0.50) K/uL Baso # (Auto) 0.09 (0.00-0.20) K/uL Immature Gran # (Auto) 0.59 H (0.01-0.20) K/uL ESR 43 H (0-20) mm/hr Sodium 134 L 137 (136-145) mmol/L Potassium 3.8 3.5 D (3.5-5.1) mmol/L Chloride 107 103 (98-107) mmol/L Carbon Dioxide 22 30 (21-32) mmol/L Anion Gap 5 4 (3-11) BUN 7 7 (6-23) mg/dl Creatinine 0.61 0.73 (0.6-1.4) mg/dl Est Cr Clr Drug Dosing 115.9 96.8 ml/min eGFR 107.93 102.23 BUN/Creatinine Ratio 11.5 9.6 L (10-20) Glucose 67 L 91 (70-99(Fasting)) mg/dl Calcium 8.2 L 8.3 L (8.6-10.3) mg/dl Magnesium 1.9 (1.7-2.4) mg/dl C-Reactive Protein 2.29 H (0-0.5) mg/dl
--- NOTE | 2025-01-19 17:08 | Hospitalist Progress Note ---
Date of Service January 19, 2025 Assessment & Plan (1) Sepsis: (2) SBO (small bowel obstruction): (3) Hypokalemia: (4) Cellulitis: (5) Esophagitis: (6) Paraplegia: Plan 64yo male with endstage COPD, severe PAD, recent admission for SSTI of chronic foot/leg wounds complicated by Morganella bacteremia. Admitted with severe bilateral LE cellulitis and new large bullae of bilateral LE - bullae now resolved. Course complicated by development of SBO on 01/12/25 requiring NG Tube d ecompression. #Acute small bowel obstruction - resolved - -developed on 01/12, s/p NG tube placement -recent upper GI with small bowel follow-through - resolving SBO, some contrast reached the colon -appreciate gen surg assistance -NG tube removed 01/18, and clear liquid diet started -tolerated such -- increase to full liquids today -cont IV fluids due to hypoglycemia #hypoglycemia - -due to lack of glycogen reserves (very thin), potentially impaired hepatic gluconeogenesis, and prolonged NPO status -if this issue persists consider checking cortisol level -add glucose back to IV fluids #Sepsis due to bilateral lower extremity cellulitis, right greater than left - sepsis resolved -cellulitis resolved b/l -however, has b/l james & foot wounds -Dr Bass consulted from podiatry for these wounds -most concerned about right foot wound over the 5th metatarsal -x-rays taken, ? osteomyelitis of 5th metatarsal -cont local wound care -discussed obtaining MRI right foot - patient agreeable - need to confirm whether he truly has OM -wound culture - pseudomonas, providencia, and alcaligenes -s/p 7 days of IV cefepime earlier this admit -resumed cefepime in light of concern for possible right foot OM -rechecked CRP today - minimally elevated -appreciate podiatry consult by Dr Bass #Peripheral arterial disease - -Arterial duplex studies showed greater than 75% stenosis of the left proximal femoral artery, disease also present on the right -CTA aorta with run-off - also confirms severe b/l PAD -Consulted vascular surgery - seen 01/[address] Worley -very poor candidate for intervention given his numerous other acute/chronic issues - conservative Rx recommended by vascular -ideally should be on aspirin and statin - can add these tomorrow if continuing to tolerate PO meds/diet #Acute exacerbation of COPD - resolved - -appreciate Dr Goncalves's consultation -cont formoterol BID -cont budesonide BID -incentive stephanie and flutter #Atrial fibrillation - -Continue metoprolol - change back to PO meto -hold Xarelto in the event he needs anything surgical for his foot wounds #History of alcohol abuse - -no signs of etoh withdrawal #nicotine dependence - -nicotine patch #hyponatremia - resolved -lowest Na level was 130 -today 134 -cont isotonic fluids #hypokalemia - -improved s/p replacement #Functional paraplegia - -has not ambulated in several years since his right hip fracture with repair in 2019 -wheelchair dependent at baseline #diarrhea - -check c diff -added lactinex -loose stools are common after resolution of SBO as well DVT proph - lovenox 40mg daily ultimately back to Xarelto appreciate assistance by palliative care, pulmonary, and podiatry PT, OT left message for pt's on answering machine 01/18 updated pt's by phone, 01/19 Admission and Anticipated Discharge Date Admission Date: January 09, 2025 Subjective tele overnight wnl patient sitting up in bed eating his tray of full liquids denies any worsening nausea or emesis continues with loose stools; has had 3 today no abd pain he feels well overall except for mild dyspnea no foot pain b/l we discussed the x-ray findings of right foot and need for MRI due to ?OM 5th metatarsal Review of Systems Review of Systems: CV - no chest pain pulm - occasional cough only GI - no abd pain Physical Exam Physical Exam: gen - chronically ill-appearing but NAD, looks good today (probably the best I've seen him since last week) neck - no JVD mouth - MMM, no thrush heart - RRR, s1 s2, heart tones distant, no obvious murmur lungs - clear anteriorly; airation fair; no rales; mild wheezes posteriorly abd - mildly distended, BS+, NT, no HSM ext - cap refill b/l feet about 3 sec; pulses b/l feet difficult to palpate; no edema of legs; dusky appearance of feet when he is sitting upright skin - no cellulitis either leg; dressings intact b/l feet psych - a/o x 3 Results & Data Results & Data Vital Signs (Past 12 Hours) Vital Signs Temp Pulse Pulse Resp BP Pulse Ox O2 Del Method 01/19/25 16:24 36.6 C 85 18 130/77 98 Room Air 01/19/25 16:10 91 H 01/19/25 13:20 89 16 95 Room Air 01/19/25 11:49 36.6 C 74 18 116/75 96 Room Air 01/19/25 07:42 Room Air 01/19/25 07:41 74 01/19/25 07:38 36.5 C 90 19 135/74 97 Room Air 01/19/25 07:06 110 H 18 97 Room Air Laboratory Results Laboratory Results - last 24 hr 01/19/25 01/19/25 01/19/25 05:43 11:59 17:11 WBC 8.14 RBC 3.73 L Hgb 11.9 L Hct 35.5 L MCV 95.2 MCH 31.9 MCHC 33.5 RDW Std Deviation 46.0 RDW Coeff of Jm 13.2 Plt Count 406 H MPV 9.4 Immature Gran % (Auto) 7.2 Neut % (Auto) 62.2 Lymph % (Auto) 11.7 [place] % (Auto) 12.9 Eos % (Auto) 4.9 Baso % (Auto) 1.1 Neut # (Auto) 5.06 Lymph # (Auto) 0.95 L [place] # (Auto) 1.05 H Eos # (Auto) 0.40 Baso # (Auto) 0.09 Immature Gran # (Auto) 0.59 H ESR 43 H Sodium 134 L Potassium 3.8 Chloride 107 Carbon Dioxide 22 Anion Gap 5 BUN 7 Creatinine 0.61 Est Cr Clr Drug Dosing 115.9 eGFR 107.93 BUN/Creatinine Ratio 11.5 Glucose 67 L POC Glucose 71 60 L* Calcium 8.2 L C-Reactive Protein 2.29 H PG Care Time/CCT Total # of Minutes Spent Total Time Spent with Patient: Total time spent is greater than 50% in coordination of care (as documented) at patient's floor/unit and/or counseling patient: Coding Level of Care Code 71623 SUB INP/OBS CARE 3/50MIN Diagnoses Sepsis A41.9 SBO (small bowel obstruction) K56.609 Hypokalemia E87.6 Cellulitis L03.90 Esophagitis K20.90 Paraplegia G82.20
[2025-01-19] MEDS: DEXTROSE 50% 50 ML SYRINGE IV ONE ×3 (17:54→18:00)
[2025-01-19 18:27] LABS: Cdiff Toxin B Gene (2yr or >) Negative Cdiff Gene (Neg)
[2025-01-19] MEDS: D5W AND NSS 1,000 ML IV SCH (19:28)
[2025-01-20] MEDS ORDERED: HALOPERIDOL LACTATE 5 MG/ML 1 ML VIAL IM STA (06:20)
[2025-01-20] MEDS: HYDROmorphone INJ 0.5 MG/0.5 ML SYR IV STA (07:00)
[2025-01-20 07:02] LABS: Anion Gap 3.0 (3-11); Blood Urea Nitrogen 6.0 mg/dl (6-23); Calcium 8.3 mg/dl (8.6-10.3); Carbon Dioxide 20.0 mmol/L (21-32); Chloride 112.0 mmol/L (98-107); Creatinine Clr Calc Pharmacy 108.8 ml/min; Glucose 82.0 mg/dl (70-99(Fasting)); Potassium 4.0 mmol/L (3.5-5.1); Sodium 135.0 mmol/L (136-145)
[2025-01-20] MEDS: ACETAMINOPHEN SUSP 325 MG/10.15 ML UDC PO PRN (08:09)
--- NOTE | 2025-01-20 13:09 | Magnetic Resonance Report ---
EXAM: MRI of the right foot without contrast EXAM REASON: Fifth metatarsal ulcer. Rule out osteomyelitis COMPARISON: 12/17/2024. TECHNIQUE: Multisequence multiplanar MR imaging of the right foot was performed without contrast. FINDINGS: There is no evidence of acute fracture or dislocation. The joint spaces are within normal limits. There is no significant joint effusion. Muscle and marrow signal are normal.There is mild subcutaneous edema noted over the dorsal aspect of the midfoot and forefoot. IMPRESSION: No evidence of active osteomyelitis on the current exam. Electronically signed by Virgil Santa 01-20-2025 13:09 PM
--- NOTE | 2025-01-20 15:46 | Hospitalist Progress Note ---
Date of Service January 20, 2025 Assessment & Plan (1) Sepsis: (2) SBO (small bowel obstruction): (3) Hypokalemia: (4) Cellulitis: (5) Esophagitis: (6) Paraplegia: Plan 64yo male with endstage COPD, severe PAD, recent admission for SSTI of chronic foot/leg wounds complicated by Morganella bacteremia. Admitted with severe bilateral LE cellulitis and new large bullae of bilateral LE - bullae now resolved. Course complicated by development of SBO on 01/12/25 requiring NG Tube d ecompression. #Acute small bowel obstruction - resolved - -developed on 01/12, s/p NG tube placement -recent upper GI with small bowel follow-through - resolving SBO, some contrast reached the colon -appreciate gen surg assistance -NG tube removed 01/18, and clear liquid diet started -tolerating full liquids --> advance to low fiber -cont IV fluids at low rate (20ml/hr) due to hypoglycemia #hypoglycemia - -due to lack of glycogen reserves (very thin), potentially impaired hepatic gluconeogenesis, and prolonged NPO status -persisting despite adequate oral intake at this point --> check cortisol level AM -cont D5NS at 20ml/hr to maintain euglycemia #Sepsis due to bilateral lower extremity cellulitis, right greater than left - sepsis resolved -cellulitis resolved b/l -however, has b/l james & foot wounds -Dr Bass consulted from podiatry for these wounds -most concerned about right foot wound over the 5th metatarsal -x-rays taken, ? osteomyelitis of 5th metatarsal -MRI fortunately without osteomyelitis R foot -cont local wound care -wound culture - pseudomonas, providencia, and alcaligenes -s/p 7 days of IV cefepime earlier this admit -resumed cefepime in light of concern for possible right foot OM -since OM has been ruled out cont cefepime another 1-2 days then stop all abx therapy -Dr Bass had sent another wound cx from R foot; follow this to completion -appreciate podiatry consult by Dr Bass #Peripheral arterial disease - -Arterial duplex studies showed greater than 75% stenosis of the left proximal femoral artery, disease also present on the right -CTA aorta with run-off - also confirms severe b/l PAD -Consulted vascular surgery - seen 01/[address] Worley -very poor candidate for intervention given his numerous other acute/chronic issues - conservative Rx recommended by vascular -ideally should be on aspirin and statin - can add these tomorrow #Acute exacerbation of COPD - resolved - -appreciate Dr Goncalves's consultation -cont formoterol BID -cont budesonide BID -incentive stephanie and flutter #Atrial fibrillation - -Continue metoprolol - change back to PO meto -hold Xarelto in the event he needs anything surgical for his foot wounds #History of alcohol abuse - -no signs of etoh withdrawal #nicotine dependence - -nicotine patch #hyponatremia - resolved -lowest Na level was 130 -today 135 #hypokalemia - -improved/resolved s/p replacement #Functional paraplegia - -has not ambulated in several years since his right hip fracture with repair in 2019 -wheelchair dependent at baseline #diarrhea - -checked c diff --> negative -added lactinex DVT proph - lovenox 40mg daily ultimately back to Xarelto appreciate assistance by palliative care, pulmonary, and podiatry cont PT, OT left message for pt's on answering machine 01/18 updated pt's by phone, 01/19 Admission and Anticipated Discharge Date Admission Date: January 09, 2025 Subjective patient w/o any complaints no abd pain no nausea/emesis tolerating full liquids is hungry denies any pain in any location denies dyspnea asks when he can go home tele - wnl Review of Systems Review of Systems: cv - no chest pain pulm - no dyspnea Physical Exam Physical Exam: gen - chronically ill-appearing but NAD, awake/alert, watching TV neck - no JVD mouth - MMM, no thrush heart - RRR, s1 s2, heart tones distant, no murmur lungs - clear anteriorly; airation fair abd - soft, scant distension, BS+, NT, no HSM ext - cap refill b/l feet about 3 sec; pulses b/l feet <1+; no edema of legs; dusky appearance of feet skin - no cellulitis either leg; dressings intact b/l feet and legs psych - a/o x 3 Results & Data Results & Data Vital Signs (Past 12 Hours) Vital Signs Temp Pulse Pulse Resp BP Pulse Ox O2 Del Method 01/20/25 14:56 36.5 C 87 18 124/76 97 Room Air 01/20/25 14:20 85 08/31/25 13:10 86 20 98 Room Air 01/20/25 12:31 36.3 C L 88 22 121/79 99 Room Air 01/20/25 07:48 Room Air 01/20/25 07:46 87 01/20/25 07:18 91 H 18 98 Room Air FiO2 01/20/25 14:56 01/20/25 14:20 01/20/25 13:10 01/20/25 12:31 01/20/25 07:48 01/20/25 07:46 01/20/25 07:18 21 Laboratory Results Laboratory Results - last 24 hr 01/19/25 01/19/25 01/19/25 17:11 17:28 17:42 Sodium Potassium Chloride Carbon Dioxide Anion Gap BUN Creatinine Est Cr Clr Drug Dosing eGFR BUN/Creatinine Ratio Glucose POC Glucose 60 L* 65 L* Calcium Stl C. diff Tox B Gene Negative Cdiff Gene Stl C. diff [id number] NEGATIVE 01/19/25 01/20/25 01/20/25 19:46 06:10 12:45 Sodium 135 L Potassium 4.0 Chloride 112 H Carbon Dioxide 20 L Anion Gap 3 BUN 6 Creatinine 0.65 Est Cr Clr Drug Dosing 108.8 eGFR 105.88 BUN/Creatinine Ratio 9.2 L Glucose 82 POC Glucose 100 H 74 Calcium 8.3 L Stl C. diff Tox B Gene Stl C. diff [id number] Diagnostic Findings Foot MRI 01/20/25 20:10 EXAM: MRI of the right foot without contrast EXAM REASON: Fifth metatarsal ulcer. Rule out osteomyelitis COMPARISON: 12/17/2024. TECHNIQUE: Multisequence multiplanar MR imaging of the right foot was performed without contrast. FINDINGS: There is no evidence of acute fracture or dislocation. The joint spaces are within normal limits. There is no significant joint effusion. Muscle and marrow signal are normal.There is mild subcutaneous edema noted over the dorsal aspect of the midfoot and forefoot. IMPRESSION: No evidence of active osteomyelitis on the current exam. Electronically signed by Virgil Santa 01-20-2025 13:09 PM PG Care Time/CCT Total # of Minutes Spent Total Time Spent with Patient: Total time spent is greater than 50% in coordination of care (as documented) at patient's floor/unit and/or counseling patient: Coding Level of Care Code 89156 SUB INP/OBS CARE MIN Diagnoses Sepsis A41.9 SBO (small bowel obstruction) K56.609 Hypokalemia E87.6 Cellulitis L03.90 Esophagitis K20.90 Paraplegia G82.20
[2025-01-21 08:20] LABS: Anion Gap 5.0 (3-11); Calcium 9.1 mg/dl (8.6-10.3); Carbon Dioxide 21.0 mmol/L (21-32); Chloride 111.0 mmol/L (98-107); Potassium 4.2 mmol/L (3.5-5.1); Sodium 137.0 mmol/L (136-145)
[2025-01-21 08:26] LABS: Blood Urea Nitrogen 8.0 mg/dl (6-23); Creatinine Clr Calc Pharmacy 102.4 ml/min; Glucose 82.0 mg/dl (70-99(Fasting))
--- NOTE | 2025-01-21 19:22 | Hospitalist Progress Note ---
Date of Service January 21, 2025 Assessment & Plan (1) Sepsis: (2) SBO (small bowel obstruction): (3) Hypokalemia: (4) Cellulitis: (5) Esophagitis: (6) Paraplegia: Plan 64yo male with endstage COPD, severe PAD, recent admission for SSTI of chronic foot/leg wounds complicated by Morganella bacteremia. Admitted with severe bilateral LE cellulitis and new large bullae of bilateral LE - bullae now resolved. Course complicated by development of SBO on 01/12/25 requiring NG Tube decompression. #Acute small bowel obstruction - resolved - -developed on 01/12, s/p NG tube placement -recent upper GI with small bowel follow-through - resolving SBO, some contrast reached the colon -appreciate gen surg assistance -NG tube removed 01/18, and clear liquid diet started then -advanced to low fiber and has tolerated such for 2 days -numerous stools since NG tube removal -stop any IV fluids #hypoglycemia - -due to lack of glycogen reserves (very thin), potentially impaired hepatic gluconeogenesis, and prolonged NPO status -stopped the D5 drip today -BSGs remained >70 throughout the day today on low fiber diet -cortisol level adequate at 10 -resolved issue #Sepsis due to bilateral lower extremity cellulitis, right greater than left - sepsis resolved -cellulitis resolved b/l -however, has b/l james & foot wounds -Dr Bass consulted from podiatry for these wounds -most concerned about right foot wound over the 5th metatarsal -x-rays taken, ? osteomyelitis of 5th metatarsal -MRI fortunately without osteomyelitis R foot -cont local wound care -wound culture - pseudomonas, providencia, and alcaligenes -completed 10 days IV cefepime - day #10 today - stop all abx therapy -Dr Bass had sent another wound cx from R foot; follow this to completion but thus far negative -appreciate podiatry consult by Dr Bass -cont local wound care #Peripheral arterial disease - -Arterial duplex studies showed greater than 75% stenosis of the left proximal femoral artery, disease also present on the right -CTA aorta with run-off - also confirms severe b/l PAD -Consulted vascular surgery - seen 01/[address] Worley -very poor candidate for intervention given his numerous other acute/chronic issues - conservative Rx recommended by vascular -ideally should be on aspirin and statin #Acute exacerbation of COPD - resolved - -appreciate Dr Goncalves's consultation -cont formoterol BID -cont budesonide BID -incentive stephanie and flutter #Atrial fibrillation - -Continue metoprolol -hold Xarelto in the event he needs anything surgical for his foot wounds but that is looking unlikely -resume Xarelto tomorrow #History of alcohol abuse - -no signs of etoh withdrawal #nicotine dependence - -nicotine patch #hyponatremia - resolved -lowest Na level was 130 -today 137 #hypokalemia - -improved/resolved s/p replacement #Functional paraplegia - -has not ambulated in several years since his right hip fracture with repair in 2019 -wheelchair dependent at baseline #diarrhea - -checked c diff --> negative -added lactinex -improved DVT proph - lovenox 40mg daily ultimately back to Xarelto at d/c appreciate assistance by palliative care, pulmonary, and podiatry cont PT, OT left message for pt's on answering machine 01/18 and again today, 01/21 updated pt's by phone, 01/19 hopefully home 01/22 Admission and Anticipated Discharge Date Admission Date: January 09, 2025 Subjective tele wnl overnight no new complaints tolerating solids no N/V/abd pain denies feeling bloated or distended denies pain in legs Review of Systems Review of Systems: cv - no PND/orthopnea pulm - no dyspnea GI - multiple stools last few days Physical Exam Physical Exam: gen - looks well today, NAD, awake/alert neck - no JVD mouth - MMM, no thrush heart - RRR, s1 s2, heart tones distant, no murmur lungs - CTA b/l today, airation fair/restricted abd - soft, ND, BS+, NT, no HSM ext - cap refill b/l feet about 3 sec; pulses b/l feet <1+; no edema of legs; dusky appearance of feet and shins skin - no cellulitis either leg; dressings intact b/l feet and legs; I removed all dressings - there are no open ulcers except for minimal ulceration dorsum of right foot near the 4th/5th metatarsals; minimal ulcer anterior right knee psych - a/o x 3 Results & Data Results & Data Vital Signs (Past 12 Hours) Vital Signs Temp Pulse Resp BP Pulse Ox O2 Del Method 01/21/25 17:20 65 16 96 Room Air 01/21/25 15:20 36.7 C 78 14 107/73 97 Room Air 01/21/25 11:40 36.8 C 93 H 16 118/72 98 Room Air 01/21/25 11:36 84 20 98 Room Air 01/21/25 08:00 Room Air 01/21/25 07:30 36.6 C 86 14 122/73 97 Room Air Laboratory Results Laboratory Results - last 24 hr 01/21/25 01/21/25 01/21/25 07:35 11:05 16:15 Sodium 137 Potassium 4.2 Chloride 111 H Carbon Dioxide 21 Anion Gap 5 BUN 8 Creatinine 0.69 Est Cr Clr Drug Dosing 102.4 eGFR 103.99 BUN/Creatinine Ratio 11.6 Glucose 82 POC Glucose 90 86 Calcium 9.1 Cortisol AM Sample 10.80 PG Care Time/CCT Total # of Minutes Spent Total Time Spent with Patient: Total time spent is greater than 50% in coordination of care (as documented) at patient's floor/unit and/or counseling patient: Coding Level of Care Code 13815 SUB INP/OBS CARE 2/35MIN Diagnoses Sepsis A41.9 SBO (small bowel obstruction) K56.609 Hypokalemia E87.6 Cellulitis L03.90 Esophagitis K20.90 Paraplegia G82.20
[2025-01-21 23:15] VITALS: RESP 18
[2025-01-22 08:03] VITALS: PULSE 80
[2025-01-22] MEDS: ASPIRIN 81 MG ECTAB PO SCH (08:48)
[2025-01-22] MEDS: THIAMINE HCL 100 MG TAB PO SCH (08:50)
[2025-01-22 12:10] VITALS: BP 135/63; TEMP 97.7; O2SAT 95
--- NOTE | 2025-01-22 12:28 | Discharge Summary ---
Discharge Summary Date of Service date of admission - January 09, 2025 date of discharge - January 22, 2025 Principal Dx & Hospital Course #1 = Principal Diagnosis (1) Sepsis: (2) SBO (small bowel obstruction): (3) Hypokalemia: (4) Cellulitis: (5) Esophagitis: (6) Paraplegia: Plan 64yo male with severe COPD, severe PAD, recent admission for SSTI of chronic foot/leg wounds complicated by Morganella bacteremia (12/14/24 - 12/21/24). Admitted with severe bilateral LE cellulitis and new large bullae of bilateral LE. Course complicated by development of SBO on 01/12/25 requiring NG Tube decompression. #Sepsis due to bilateral lower extremity cellulitis, right greater than left - -sepsis resolved with IV antibiotic therapy & supportive care -blood cultures were negative while hospitalized -b/l LE cellulitis resolved with 10-day course of IV cefepime -b/l james & foot wounds - -Dr Kemar Bass consulted from podiatry for these wounds -most concern was for a right foot wound over the 5th metatarsal -x-rays taken, ? osteomyelitis of 5th metatarsal -MRI fortunately without osteomyelitis of the right foot -wound culture from the right foot - pseudomonas, providencia, and alcaligenes -completed 10 days IV cefepime while hospitalized as noted above -Dr Bass had sent another wound cx from R foot on 01/19/25; this culture remained negative -cont local wound care at home with dressing changes every other day (Aquacel Ag with optifoams) -follow-up with the [facility] in January for recheck of wounds #Acute small bowel obstruction - resolved - -developed on 01/12, s/p NG tube placement -general surgery was consulted who managed this issue -upper GI series with small bowel follow-through study showed resolving SBO with some contrast reaching the colon -NG tube removed 01/18, and clear liquid diet started then -advanced to low fiber and tolerated such for 2+ days prior to discharge home -patient had numerous stools since NG tube removal -recommended low fiber diet for 7 days at minimum upon return home #hypoglycemia - -had such while NPO for his SBO, even while receiving dextrose-containing IV fluids -suspect due to lack of glycogen reserves (patient very thin), potentially impaired hepatic gluconeogenesis, and prolonged NPO status -slowly weaned off dextrose-containing IV fluids -BSGs remained >70 after he was back to regular diet -cortisol level adequate at 10 #Peripheral arterial disease - -Arterial duplex studies showed greater than 75% stenosis of the left proximal femoral artery, disease also present on the right -CTA aorta with run-off - also confirmed severe b/l PAD -Consulted [facility] vascular surgery - seen 01/[address] Tashi Worley -very poor candidate for intervention given his numerous other acute/chronic issues - conservative Rx recommended by vascular surgery rather than operative intervention -ideally should be on aspirin and statin moving forward, but with his alcohol use and pre-existing Xarelto would be at high risk of GI bleeding etc. -thus, started on lipitor 20mg daily but deferred aspirin use for now #Acute exacerbation of COPD - resolved - -seen by Dr Farideh Goncalves - [facility] [place] Pulmonary -usual inhalers, nebs, etc all continued while here -stable in room air at time of discharge home #Atrial fibrillation - -continue metoprolol succinate daily -continue Xarelto 10mg daily -was in normal rhythm during the entire hospitalization #History of alcohol abuse - -no signs of etoh withdrawal during the hospitalization -patient unlikely to fully abstain from etoh upon return home #nicotine dependence - -nicotine patch employed while here #hyponatremia - resolved -lowest Na level was 130 -level was 137 at discharge #hypokalemia - -improved/resolved s/p replacement #Functional paraplegia - -has not ambulated in several years since his right hip fracture with repair in 2019 -wheelchair dependent at baseline #diarrhea - -checked c diff --> negative -resolving SBO, antibiotic-associated diarrhea, etc likely all to blame #BPH - -seen on CT a/p -no significant symptoms at this time #bladder stones - -seen incidentally on CT scan of abd/pelvis -no specific Rx needed at this time but could consider urology referral post- discharge #history of LE edema - -this was resolved by time of discharge -recommended he take furosemide NEEDED rather than daily/standing Notes For Next Care Provider f/u [facility] shortly after discharge for b/l james/foot wounds -until then - dressing changes every other day with Aquacel Ag & optifoams Medication Changes From Visit 1. pantoprazole 40mg daily 2. atorvastatin 20mg HS 3. thiamine 200mg twice daily x 30 days 4. furosemide NEEDED for swelling (not standing) 5. for dry skin on legs - OTC Lac-Hydrin cream twice daily prn Admission HPI Per Admitting Provider The patient is a 64-year-old wheelchair-bound male with with past medical history including PAD, gram-negative bacteremia of right foot wounds due to Morganella with admission from 12/14-12/21/2024, chronic ulceration of right foot, tobacco use, COPD, history of acute on chronic respiratory failure, CHF, chronic venous stasis, alcohol abuse, cardiomyopathy, atrial fibrillation on long-term anticoagulant use. The patient presents to the emergency department with a recurrence of open wounds of right lower extremity, that initially began as a blister about 1 week ago, which spontaneously opened and drained a yellowish clear fluid. He also has had a blister on his left great toe which opened up recently, and both legs have moderately severe erythema extending up to tibial shaft. The patient was noted also to be mildly hypoxic when he came into the emergency department with a pulse ox of around 87%, and had 2 L oxygen placed improved to 99%. He attributes the decreased oxygen saturation to being scrunched over in bed. He denies any signs of upper respiratory infection. Discharge Exam gen - NAD, awake/alert neck - no JVD mouth - MMM, no thrush heart - RRR, s1 s2, heart tones distant, no murmur lungs - CTA b/l today, airation fair/restricted abd - soft, ND, BS+, NT, no HSM ext - cap refill b/l feet about 3 sec; pulses b/l feet <1+; no edema of legs; dusky appearance of feet skin - no cellulitis either leg; dressings intact b/l feet and legs; I removed all dressings - there are no open ulcers except for minimal ulceration dorsum of right foot near the 4th/5th metatarsals (even that is nearly resolved); minimal ulcer anterior right knee; very dry skin/xerosis of b/l shins & feet (severe) psych - a/o x 3 Discharge Plan Discharge Items Patient Disposition: Home - Self-Care Reason For Visit: SEPSIS DUE TO CELLULITIS OF LEGS Discharge Diagnosis: 1. sepsis - resolved 2. bilateral leg cellulitis (skin infection) - resolved 3. multiple ulcers bilateral legs - improved 4. small bowel obstruction - resolved 5. PAD (peripheral artery disease) 6. tobacco use 7. COPD 8. low potassium, low magnesium - resolved 9. history of a.fib 10. hypoglycemia (low blood sugar) - resolved 11. enlarged prostate - as seen on CT scan 12. incidental finding of "bladder stones" on CT scan (nothing to do at this time) Activity: Per Instructions section Non-emergency contact: Primary Care Provider and Specialist Call non-emergency contact if: you have any medication questions, your symptoms worsen, you have a fever, your wound has increased redness, your wound has increased drainage and your wound pain has increased Follow-up/Referrals: Silvia Alvarado DO, FACEP [Physician] - 02/01/25 8:00 am (Hospital follow up on February 01 at 8 am.) Lora Narvaez MD [Primary Care Provider] - 01/29/25 11:30 am (Hospital follow up on January 29 at 11:30 am.) Diet: Low Fiber Addtl Attending Provider Instructions: Mr Castillo, Holger were hospitalized due to sepsis from bilateral skin infection - also known as cellulitis. You had several wounds on both legs as well. Your skin infection resolved with IV antibiotics; you received 10 days of IV antibiotic treatment. During your stay you unfortunately developed a small bowel obstruction (blockage). You required an NG tube to help resolve the obstruction. General surgery helped manage the bowel obstruction. You ultimately were restarted on clear liquid diet and advanced to low fiber diet slowly. You are tolerating this, having bowel movements and gas, etc. There was some concern about bone infection in your right foot. However, MRI of the right foot did NOT show bone infection. Good news! Your wounds were dressed & treated while here. The wounds are healing/the ulcers are closing up. You will need follow-up with the [facility] to ensure ongoing improvement. In addition, Dr Worley from [facility] saw you for the arterial disease (plaque build-up in the arteries) in your legs. The "PAD" (peripheral artery disease) is severe in your legs. Dr Worley felt it was too high risk to try and do surgery on the clogged arteries. Finally, you had several episodes of low blood sugar (hypoglycemia) while you were on a limited diet. Your sugars were normal once you were back to eating a regular diet. The greatest risk factor for you having hypoglycemia at home is drinking alcohol. Please see handouts on this topic. Recommendations - 1. take pantoprazole 40mg once daily for your stomach 2. take atorvastatin 20mg at bedtime for cholesterol/PAD 3. take thiamine 200mg twice daily x 30 days then stop 4. continue the dressing changes every other day and as needed -next dressing change will be on 01/24/25 -for most of the skin lesions place a small amount of blue "Aquacel Ag" over the wound, then cover with optifoam dressing -the skin lesion on your right knee - just cover with optifoam 5. take furosemide NEEDED for swelling/edema of your legs; I would not take it every morning as previous; just take NEEDED 6. STOP any ibuprofen, motrin, naprosyn, aleve or aspirin use 7. follow-up - see separate section 8. follow a low-fiber diet for 7 days; see handout 9. for dry skin on your legs you can use Lac-Hydrin cream twice daily; this cream can be purchased [id number]; be sure to avoid placing the cream on any open wound/ulcer 10. please limit alcohol use to 1 beer or less per day; none would be best in light of your medical problems, Xarelto use, etc. 11. if you have symptoms of low blood sugar (feeling sweaty/hot, feeling dizzy or lightheaded, feeling tremulous, etc) check your sugar with your glucometer. Follow the steps to raise your blood sugar as noted in the handouts. Return to [facility] if - -you have fevers over 100 degrees -you develop severe diarrhea (3 or more liquid stools in 24 hours) -you have worsening abdominal pain or nausea/vomiting -you have worsening shortness of breath or chest pain -you have any concerns about the wounds on your legs -any other concerns Enjoy being home! -Ruiz Gallardo Pending Studies at Discharge: No Stand-Alone Forms: My [facility], Work/School Release, Smoking Cessation Medications and DC Order Prescriptions: New thiamine HCl (vitamin B1) 100 mg Tablet 200 mg PO BID 30 Days Qty: 120 0RF pantoprazole 40 mg Tablet,Delayed Release (Dr/Ec) 40 mg PO QAM Qty: 30 1RF atorvastatin [Lipitor] 20 mg tablet 20 mg PO HS Qty: 30 2RF Rx Instructions: for cholesterol and PAD Continued (DME) nebulizers Misc See Rx Instructions .ROUTE .MEDSUPPLY Qty: 1 0RF Rx Instructions: Use four times daily as needed albuterol sulfate 1.25 mg/3 mL solution for nebulization 1.25 mg inhalation QID PRN (Reason: shortness of breath or wheezing) Qty: 360 4RF Xarelto 10 mg tablet 10 mg PO QPM Qty: 90 3RF metoprolol succinate 50 mg tablet extended release 24 hr 50 mg PO DAILY Qty: 90 3RF bupropion HCl [Wellbutrin SR] 150 mg tablet sustained-release 12 hr 150 mg PO BID Qty: 60 2RF albuterol sulfate [Ventolin HFA] 90 mcg/actuation HFA aerosol inhaler 2 puff inhalation Q4H PRN (Reason: Shortness Of Breath Or Wheezing) Qty: 18 3RF Breztri Aerosphere 160-9-4.8 mcg/actuation HFA aerosol inhaler 2 inh inhalation BID Qty: 10.7 6RF potassium chloride [Klor-Con 10] 10 mEq tablet extended release 10 meq PO DAILY Qty: 90 1RF magnesium 250 mg tablet 250 mg PO DAILY guaifenesin [Mucinex] 600 mg tablet extended release 12hr 600 mg PO BID PRN (Reason: congestion) Qty: 60 3RF cetirizine 10 mg tablet 10 mg PO DAILY PRN (Reason: Allergy Symptoms) multivitamin [Daily-Deanne] tablet 1 tab PO DAILY Changed furosemide [Lasix] 20 mg tablet 20 mg PO BID PRN (Reason: edema) Qty: 120 1RF Rx Instructions: for swelling/edema of legs Discontinued ibuprofen 200 mg Capsule 400 mg PO Q6H PRN (Reason: Pain) No Action oxycodone-acetaminophen [Percocet] 10-325 mg tablet 1 tab PO Q6H PRN (Reason: pain) Qty: 60 0RF Discharge Orders: Discharge Order (Routine); Ordered 01/22/25 Ordered By: Ruiz Mendenhall/Other Patient Handouts: Small Bowel Obstruction, Low-Fiber Diet, Hypoglycemia (Low Blood Sugar), PAD, Hypoglycemia Tx Steps, Understanding Bladder Stones, ED Hypoglycemia, Nondiabetic Admission Data Admit Date/Time: 01/09/25 17:50 Attending Provider: Ruiz Gallardo Admit Provider: Kwabena Lara Primary Care Provider: Lora Narvaez Other Providers: [facility] Fax; Kwabena Lara; Naresh Santos; Jerald Worley; Farideh Goncalves; Kemar Bass; Dl Shelley; Riccardo Hudson; Bonifacio Marquez Other Interventions: Discharge Summary Assessment (RN) Last Done: 01/22/25 13:34 Hospital Stay Data Consultations Consult General Surgery Consult Palliative Care Routine Consult Vascular Surgery Routine Consult Pulmonology Routine Consult Podiatry Routine PT, OT Wound Care Diabetes Education Diagnostic Imagining Performed Chest X-Ray 01/09/25 17:25 Chest radiograph, one view History: Hypoxia Comparison: 12/16/2024 Findings: Single AP view of the chest performed. No focal consolidation or pleural effusion. Mild streaky scarring or atelectasis in the right lung apex, unchanged. The lungs appear emphysematous. No pneumothorax. The cardiomediastinal silhouette is within normal limits. Normal pulmonary vascularity. No evidence for lymphadenopathy. No visualized bony or soft tissue abnormality. Impression: No acute process Electronically signed by Hayes Zamudio 01-09-2025 6:55 PM KUB X-Ray 01/12/25 14:14 Abdominal radiograph, one view History: Abdominal pain Comparison: 10/06/2020 Findings: Single AP view of the abdomen performed. Several dilated loops of small bowel are seen. A loop in the right abdomen measures up to 3.7 cm in diameter No pneumatosis or portal venous gas. No abnormal calcifications project over the abdomen. No acute abnormality of the bony structures. Impression: Several dilated loops of small bowel. Obstruction is not excluded. Electronically signed by Hayes Zamudio 01-12-2025 4:10 PM Abdomen/Pelvis CT 01/12/25 16:49 Exam(s): CT ABDOMEN + PELVIS With Contrast Oral - High Density Amt: gastro, IV Amt: 93 ml opti 320 EXAM: CT Abdomen and Pelvis With Intravenous Contrast CLINICAL HISTORY: Abdominal Pain with nausea and vomiting TECHNIQUE: Axial computed tomography images of the abdomen and pelvis with intravenous contrast. CTDI is 20.43 mGy and DLP is 963.63 mGy-cm. Automated exposure control was utilized for the study. A dose lowering technique was utilized adhering to the principles of ALARA. CONTRAST: Patient received gastro of Oral - High Density and 93 ml opti 320 of IV contrast COMPARISON: CT abdomen and pelvis 08/31/2019 FINDINGS: Lung bases: Unremarkable. No mass. No consolidation. Pleural space: Trace right pleural effusion. ABDOMEN: Liver: Unremarkable. No mass. Gallbladder and bile ducts: Unremarkable. No calcified stones. No ductal dilation. Pancreas: Unremarkable. No mass. No ductal dilation. Spleen: Unremarkable. No splenomegaly. Adrenals: Unremarkable. No mass. Kidneys and ureters: Suspect punctate nonobstructing right renal calculus. No hydronephrosis of either kidney. Simple appear left renal cyst is present, no follow up is needed. The kidneys are otherwise unremarkable. Stomach and bowel: Small-bowel obstruction with a transition point in the right lower quadrant. There are bilateral inguinal hernias, the right contains decompressed loops of small bowel and the left contains a small amount of fluid without bowel in the left hernia. No mucosal thickening. PELVIS: Appendix: No findings to suggest acute appendicitis. Bladder: Bladder calculi are present. No mass. Reproductive: Nonspecific prostate gland enlargement. ABDOMEN and PELVIS: Intraperitoneal space: Minimal free fluid in the pelvis is nonspecific. No free air. Bones/joints: Age-indeterminate severe L2 compression fracture with 5 mm of retropulsion resulting in mild spinal canal stenosis. Slightly worsened moderate L4 compression fracture. There is a right hip prosthesis. Avascular necrosis of the left femoral head. No dislocation. Soft tissues: Unremarkable. Vasculature: Moderate atherosclerosis. No aneurysm. Lymph nodes: Unremarkable. No enlarged lymph nodes. IMPRESSION: 1. Small-bowel obstruction with a transition point in the right lower quadrant. 2. There are bilateral inguinal hernias, the right contains decompressed loops of small bowel and the left contains a small amount of fluid without bowel in the left hernia. 3. Suspect punctate nonobstructing right renal calculus. No hydronephrosis of either kidney. 4. Age-indeterminate severe L2 compression fracture with 5 mm of retropulsion resulting in mild spinal canal stenosis. 5. Slightly worsened moderate L4 compression fracture. 6. Nonspecific prostate gland enlargement. 7. Bladder calculi are present. 8. Minimal free fluid in the pelvis is nonspecific. 9. Avascular necrosis of the left femoral head. 10. Trace right pleural effusion. Electronically signed by: Alejandra Beltran MD 01/13/25 01:50 AM Chest X-Ray 01/13/25 05:08 EXAM: XR chest 1V portable CLINICAL HISTORY: NG tube placement confirmation. TECHNIQUE: An X-ray image of the chest is obtained in AP projection. COMPARISON: 01/09/2025 CR. FINDINGS: New NG tube placement reaching below left hemidiaphragm with its tip about 9.5cm from the gastroesophageal junction (ideally should be 10cm from junction, 1-2cm advancement preferable). Pulmonary Parenchyma: Included base of lungs show no evidence of consolidation, collapse, or focal opacities. No pulmonary nodules are identified. No evidence of pleural effusion or pleural thickening. Heart and Mediastinum: Heart size and shape are normal. No mediastinal widening or masses. No hilar or mediastinal lymphadenopathy. Bony Thorax: Bony thorax appears intact without fractures or deformities. Soft Tissues: Soft tissues overlying the chest wall are unremarkable. IMPRESSION: New NG tube placement reaching below left hemidiaphragm with its tip about 9.5cm from the gastroesophageal junction (ideally should be 10cm from junction, 1-2cm advancement preferable). Electronically signed by Denny Lui 01-13-2025 07:33 AM KUB X-Ray 01/13/25 08:48 KUB CLINICAL HISTORY: Small bowel obstruction. Vomiting. FINDINGS: An AP, portable, supine abdominal radiograph is compared to abdominal x-ray and CT dated 01/12/2025. An enteric tube is in place. The tip projects below the diaphragm over the gastric fundus. There are distended and gas-filled loops of small bowel indicating persistent obstruction. Bowel loops measure up to 4.5 cm in diameter. No evidence of intraperitoneal free air is seen on this supine image. There are no abnormal abdominal calcifications. The bladder is filled with excreted IV contrast. Pelvic phleboliths are again noted. The skeletal structures are osteopenic and appear intact. A right hip arthroplasty is in place. IMPRESSION: 1. An enteric tube is in place as above. 2. Persistent high-grade small bowel obstruction. Electronically signed by: Dru Akbar M.D. 01/13/2025 10:23 AM Chest X-Ray 01/13/25 20:02 Exam(s): XR CXR 1 VIEW EXAM: XR Chest, 1 View CLINICAL HISTORY: Check NG tube placement - advanced tube 2cm. TECHNIQUE: Frontal view of the chest. COMPARISON: Chest radiograph 01/13/2025 FINDINGS: Lungs: Unremarkable. No consolidation. Pleural space: Unremarkable. No pneumothorax. Heart: Unremarkable. No cardiomegaly. Mediastinum: Unremarkable. Normal mediastinal contour. Bones/joints: No acute fracture. Tubes, lines and devices: A nasogastric tube courses below the diaphragm with the tip and side port overlying the stomach. Upper abdomen: Gaseous distended loops of small bowel is concerning for obstruction. IMPRESSION: 1. A nasogastric tube courses below the diaphragm with the tip and side port overlying the stomach. 2. Gaseous distended loops of small bowel is concerning for obstruction. Electronically signed by: Alejandra Beltran MD 01/13/25 23:31 PM Chest X-Ray 01/13/25 22:26 Exam(s): XR CXR 1 VIEW EXAM: XR Chest, 1 View CLINICAL HISTORY: Check NG tube placement - patient dislodged. TECHNIQUE: Frontal view of the chest. COMPARISON: Chest radiograph 01/13/2025 FINDINGS: Lungs: Unremarkable. No consolidation. Pleural space: Unremarkable. No pneumothorax. Heart: Unremarkable. No cardiomegaly. Mediastinum: Unremarkable. Normal mediastinal contour. Bones/joints: No acute fracture. Tubes, lines and devices: A nasogastric tube courses below the diaphragm with the tip and side port overlying the stomach. Upper abdomen: Gaseous distended loops of small bowel are concerning for obstruction. IMPRESSION: 1. A nasogastric tube courses below the diaphragm with the tip and side port overlying the stomach. 2. Gaseous distended loops of small bowel are concerning for obstruction. Electronically signed by: Alejandra Beltran MD 01/14/25 00:38 AM Chest X-Ray 01/14/25 02:28 EXAM: XR chest 1V portable CLINICAL HISTORY: Patient removed NG tube- new tube placed. TECHNIQUE: An X-ray image of the chest is obtained in AP projection. COMPARISON: 01/13/2025. FINDINGS: NG tube placement reaching below the left hemidiaphragm with its tip at the stomach. Pulmonary Parenchyma: Atelectatic band in the right upper lung zone. Otherwise, lungs show no evidence of consolidation, collapse, or focal opacities. No pulmonary nodules are identified. No evidence of pleural effusion or pleural thickening. Heart and Mediastinum: Heart size and shape are normal. No mediastinal widening or masses. No hilar or mediastinal lymphadenopathy. Bony Thorax: Bony thorax appears intact without fractures or deformities. Soft Tissues: Soft tissues overlying the chest wall are unremarkable. IMPRESSION: 1. The nasogastric tube is in the proper position with its tip terminating in the stomach. 2. No acute cardiopulmonary abnormality. 3. Atelectatic band in the right upper lung zone. 4. No other significant changes compared to the prior study, dated 01/13/2025 Electronically signed by Denny Lui 01-14-2025 07:43 AM KUB X-Ray 01/15/25 07:23 KUB HISTORY: Small bowel obstruction sbo COMPARISON: [facility] 01/13/2025, CT abdomen and pelvis 01/12/2025 FINDINGS: Persistent small bowel obstruction with dilated air-filled loops of small bowel measuring up to 4.3 cm, previously 4.6 cm. Distal tip of enteric tube projects over the stomach. Arterial calcifications are noted. No renal calculi. No ureteral calculi. No pneumoperitoneum or pneumatosis. Right hip art hroplasty. No fracture. IMPRESSION: 1. Distal tip of enteric tube projects over the stomach. 2. Persistent small bowel obstruction with bowel distention appearing stable to slightly improved compared to 01/13/2025. ACT 112: Negative or not required by law. The above report was generated using voice recognition software. It may contain grammatical, syntax or spelling errors. Electronically signed by: Brent Alvarez M.D. 01/15/2025 8:55 AM Aorta w/Runoff CTA 01/15/25 13:00 CT ang AA runof w inc ana ifdon HISTORY: 64 years-old Male deven non healing foot ulcers patient presents with nonhealing ulcers of the feet COMPARISON: CT abdomen and pelvis 01/12/2025 TECHNIQUE: CTA abdomen and pelvis with lower extremity runoff was obtained following the intravenous administration of 112 mL Optiray 320. All measurements were obtained according to NASCET criteria. 3-D coronal and sagittal maps were obtained and submitted for review. A dose lowering technique was used consistent with the principals of NICK. FINDINGS: CTA: Moderate to extensive coronary artery calcifications. Normal caliber of the descending thoracic aorta. Moderate to extensive atherosclerosis is present. Mild ectasia of the infrarenal abdominal aorta without aneurysm, 2.2 x 2.0 cm. Mild stenosis at the origin of the celiac trunk. There is moderate stenosis at the origin of the celiac trunk measuring less than 70%. Duplicated renal arteries are patent but there is at least mild stenosis. Mild stenosis at the origin of the inferior mesenteric artery. Normal caliber of the iliac arteries. 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 Prominent atherosclerosis within this distribution causes high-grade stenosis. Areas of intermediate to high-grade stenosis noted within the bilateral internal iliac arteries. RIGHT LOWER EXTREMITY: High-grade stenosis of the right common iliac artery on image 263 series 3. Patent common femoral artery. Multifocal areas of high-grade stenosis noted within the superficial femoral artery. The popliteal artery is patent. Patent tibioperoneal trunk with three-vessel arterial flow noted to the level of the ankle. LEFT LOWER EXTREMITY: Mild to moderate stenosis of the external iliac artery. The common femoral artery is patent.a possible short segment dissection of the superficial femoral artery in image 422 series 3. Short segment high-grade stenosis of the superficial femoral artery on image 437. The popliteal artery is patent. Patent peroneal trunk with 3 vessel arterial flow noted level of the ankle. CT ABDOMEN/pelvis: Emphysema with bronchial wall thickening and bibasilar mucous plugging. Small right pleural effusion with dependent bibasilar atelectasis. No pneumatosis or pneumoperitoneum. Unremarkable spleen, pancreas, gallbladder and adrenal glands. Unremarkable liver. Kidneys are within normal limits without hydronephrosis. Cyst of the superior pole left kidney again noted. Layering dependent subcentimeter stones within the dependent urinary bladder are again seen. No lymphadenopathy. Mild distal esophageal wall thickening. Enteric tube distal tip terminates within the mid gastric body. Small inguinal hernias are fat filled. A nonobstructed loop of ileum is again seen partially extending into right inguinal hernia. There is decreased small bowel distention. Air and fluid-filled dilated loops of small bowel measuring up to 3.8 cm are again seen within the midabdomen with transition point within the right midabdomen on image 189 series 3. There is swirling within the lower abdominal mesentery. No acute fracture. Right hip arthroplasty. Avascular necrosis of the left hip. L2 and L4 compression deformities are again noted along with unchanged retropulsion. Small fat filled umbilical hernia on image 196. IMPRESSION: 1. Enteric tube distal tip terminates in the stomach. There is persistent small bowel obstruction with probable internal hernia. The degree of small bowel distention has improved compared to the 01/12/2025 study. 2. Moderate to extensive atherosclerosis with areas of high-grade stenosis noted within the iliac and superficial femoral arteries as above. 3. No pneumatosis or pneumoperitoneum. 4. Small right pleural effusion with right lower lobe mucus plugging. 5. Additional findings as above. ACT 112: Negative or not required by law. The above report was generated using voice recognition software. It may contain grammatical, syntax or spelling errors. Electronically signed by: Brent Alvarez M.D. 01/15/2025 3:06 PM Small Bowel X-Ray 01/16/25 10:03 SMALL BOWEL FOLLOW-THROUGH CLINICAL HISTORY: Small bowel obstruction COMPARISON STUDY: Abdominal CT dated 01/12/2025. Abdominal x-ray dated 01/15/2025. TECHNIQUE: An abdominal liability claims examiner radiograph was performed. Approximate 600 cc of a 50/50 mixture of Optiray 320 and water was then injected through the enteric tube and a small bowel follow-through was performed. 5 overhead radiographs were obtained over 2 hours. FINDINGS: The scanogram shows an enteric tube in place. The tip projects below the d iaphragm over the gastric fundus. Again seen are distended and gas-filled small bowel which measure up to 5.0 cm. No evidence of intraperitoneal free air is seen on this supine image. Advanced atherosclerotic calcification is noted in the abdominal aorta. There are no abnormal abdominal calcifications. The bony structures appear intact. There is lumbar sacral spondylosis a right hip arthroplasty is in place. On the small bowel follow-through the proximal small bowel loops are significantly distended, and the distal small bowel is relatively decompressed. The transition point is not well delineated by x-ray. This is consistent with a high-grade partial small bowel obstruction. Obstruction is not complete, as enteric contrast reaches the colon at 2 hours. IMPRESSION: 1. High-grade partial small bowel obstruction as above. 2. Enteric contrast reaches the colon at 2 hours. ACT 112: Negative or not required by law. Electronically signed by: Dru Akbar M.D. 01/16/2025 2:35 PM KUB X-Ray 01/17/25 07:00 KUB CLINICAL HISTORY: eval SBO COMPARISON STUDY: CT of the abdomen and pelvis January 12, 2025. KUB January 15, 2025. Small bowel follow-through January 16, 2025. FINDINGS: Right hip arthroplasty is incidentally noted. Nasogastric tube is coiled within the stomach. Oral contrast from small bowel follow-through is now within the colon and rectum. There is minimal residual oral contrast within the distal small bowel. Multiple loops of moderately dilated small bowel measure up to 4.2 cm in caliber. Small bowel dilatation has mildly decreased. IMPRESSION: 1. Moderate small bowel dilatation, improved since study of January 15, 2025. The findings suggest a persistent but improving small bowel obstruction. 2. Oral contrast from small bowel follow-through now within the colon and rectum. ACT 112: Negative or not required by law. Electronically signed by: Randolph Arredondo M.D. 01/17/2025 12:40 PM Foot X-Ray 01/18/25 16:53 Clinical History: Ulceration 3 views of the left foot are submitted for review. Findings: There are suspected old healed fractures of the necks of the fourth and fifth metatarsals. No clear acute fracture is seen No subluxation or dislocation is seen. There is osteopenia. There is mild osteoarthritis of the great toe metatarsophalangeal joint. There is a plantar calcaneal spur. No other osseous abnormality is identified. There are no radiopaque foreign bodies. Impression: 1. Old healed fractures of the necks of the fourth and fifth metatarsal 2. Osteopenia 3. Mild great toe osteoarthritis 4. Calcaneal spur Electronically signed by Hector Brooks 01-18-2025 5:38 PM Foot X-Ray 01/18/25 16:53 INDICATION: Pain TECHNIQUE: 3 views of the right foot were obtained. COMPARISON: None FINDINGS: No displaced acute osseous process is identified. There is a soft tissue ulceration abutting the base of the fifth metatarsal. Small erosive changes are suggested in the base of the metatarsal. IMPRESSION: Small erosive changes are suggested in the base of the metatarsal abutting the soft tissue wound/ulceration. Mild osteomyelitis may be present Electronically signed by Julius Henriquez 01-18-2025 5:53 PM Foot MRI 01/20/25 20:10 EXAM: MRI of the right foot without contrast EXAM REASON: Fifth metatarsal ulcer. Rule out osteomyelitis COMPARISON: 12/17/2024. TECHNIQUE: Multisequence multiplanar MR imaging of the right foot was performed without contrast. FINDINGS: There is no evidence of acute fracture or dislocation. The joint spaces are within normal limits. There is no significant joint effusion. Muscle and marrow signal are normal.There is mild subcutaneous edema noted over the dorsal aspect of the midfoot and forefoot. IMPRESSION: No evidence of active osteomyelitis on the current exam. Electronically signed by Virgil Santa 01-20-2025 13:09 PM Pending Results Patient Have Any Pending Studies at Discharge: No Discharge Instructions Given to Patient (Per Discharging Provider) Mr Castillo, Holger were hospitalized due to sepsis from bilateral skin infection - also known as cellulitis. You had several wounds on both legs as well. Your skin infection resolved with IV antibiotics; you received 10 days of IV antibiotic treatment. During your stay you unfortunately developed a small bowel obstruction (blockage). You required an NG tube to help resolve the obstruction. General surgery helped manage the bowel obstruction. You ultimately were restarted on clear liquid diet and advanced to low fiber diet slowly. You are tolerating this, having bowel movements and gas, etc. There was some concern about bone infection in your right foot. However, MRI of the right foot did NOT show bone infection. Good news! Your wounds were dressed & treated while here. The wounds are healing/the ulcers are closing up. You will need follow-up with the [facility] to ensure ongoing improvement. In addition, Dr Worley from [facility] saw you for the arterial disease (plaque build-up in the arteries) in your legs. The "PAD" (peripheral artery disease) is severe in your legs. Dr Worley felt it was too high risk to try and do surgery on the clogged arteries. Finally, you had several episodes of low blood sugar (hypoglycemia) while you were on a limited diet. Your sugars were normal once you were back to eating a regular diet. The greatest risk factor for you having hypoglycemia at home is drinking alcohol. Please see handouts on this topic. Recommendations - 1. take pantoprazole 40mg once daily for your stomach 2. take atorvastatin 20mg at bedtime for cholesterol/PAD 3. take thiamine 200mg twice daily x 30 days then stop 4. continue the dressing changes every other day and as needed -next dressing change will be on 01/24/25 -for most of the skin lesions place a small amount of blue "Aquacel Ag" over the wound, then cover with optifoam dressing -the skin lesion on your right knee - just cover with optifoam 5. take furosemide NEEDED for swelling/edema of your legs; I would not take it every morning as previous; just take NEEDED 6. STOP any ibuprofen, motrin, naprosyn, aleve or aspirin use 7. follow-up - see separate section 8. follow a low-fiber diet for 7 days; see handout 9. for dry skin on your legs you can use Lac-Hydrin cream twice daily; this cream can be purchased [id number]; be sure to avoid placing the cream on any open wound/ulcer 10. please limit alcohol use to 1 beer or less per day; none would be best in light of your medical problems, Xarelto use, etc. 11. if you have symptoms of low blood sugar (feeling sweaty/hot, feeling dizzy or lightheaded, feeling tremulous, etc) check your sugar with your glucometer. Follow the steps to raise your blood sugar as noted in the handouts. Return to [facility] if - -you have fevers over 100 degrees -you develop severe diarrhea (3 or more liquid stools in 24 hours) -you have worsening abdominal pain or nausea/vomiting -you have worsening shortness of breath or chest pain -you have any concerns about the wounds on your legs -any other concerns Enjoy being home! -Ruiz Gallardo Total Time Total Time Spent Total Time Spent (In Minutes): 50 Coding Level of Care Code 60945 INP/OBS DISCH >30 MIN Diagnoses Sepsis A41.9 SBO (small bowel obstruction) K56.609 Hypokalemia E87.6 Cellulitis L03.90 Esophagitis K20.90 Paraplegia G82.20
== END 2025-01-22 16:05 | disposition home or self-care (01) ==
LOC: ED 15:22 → SUATTDRO 17:50 → INTOOBSV 17:50 → EDINP 17:50 → 2W 19:55 → 2S 01-13 12:43